=== PATIENT | male | born 1955 | race Hispanic/Latino ===

== ENCOUNTER 2017-07-26 19:37 | Inpatient (IN) | payer MEDICARE ==
[2017-07-26] MEDS ORDERED: Furosemide 40 MG/4 ML VIAL ONE ×2 (19:56→21:17)
--- NOTE | 2017-07-26 20:21 | RAD ---
CHEST ONE VIEW 07/26/17 HISTORY: Bilateral lower extremity edema. COMPARISON: Radiograph from 2017. FINDINGS: Heart size is markedly enlarged. Extensive alveolar and interstitial edema. No pneumothorax. IMPRESSION: Congestive heart failure. POS: EMANUELH
[2017-07-26 21:19] LABS: #Basophils 0.1 thou/uL (0.0-0.2); #Eosinphils 0.1 thou/uL (0.0-0.7); #Lymphocytes 1.3 thou/uL (1.20-3.40); #Monocytes 0.7 thou/uL (0.11-0.59); #Neutrophils 4.9 thou/uL (1.40-6.50); %Basophils 1.4 % (0.0-1.0); %Eosinophils 2.1 % (0.0-10.0); %Lymphocytes 17.8 % (21.0-51.0); %Monocytes 9.9 % (0.0-10.0); %Neutrophils 68.9 % (42.0-75.0); Hemoglobin 14.9 g/dL (14.0-18.0); Mean Corpuscular HGB CONC 32.2 g/dL (32.0-36.0); Mean Corpuscular Hemoglobin 28.1 pg (27.0-31.0); Mean Corpuscular Volume 87.4 fl (80.0-94.0); Mean Platelet Volume 8.3 fL (7.4-10.4); Platelet Count 206 thou/uL (130-400); RBC Distribution Width 14.8 % (11.5-14.5); White Blood Cell (WBC) Count 7.1 thou/uL (4.8-10.8)
[2017-07-26 21:40] LABS: ALT (SGPT) 7 U/L (8-55); AST (SGOT) 13 U/L (5-34); Albumin 3.5 g/dL (3.4-4.8); Alkaline Phosphatase 104 U/L (40-150); Anion Gap 12 mmol/L (10-20); BUN (Urea Nitrogen) 21 mg/dL (8.4-25.7); Bilirubin, Total 0.5 mg/dL (0.2-1.2); CK (CPK) 69 U/L (30-200); Calc. Creatinine Clearance 0 mL/min (70-130); Calcium 9.2 mg/dL (7.8-10.44); Carbon Dioxide 30 mmol/L (23-31); Chloride 97 mmol/L (98-107); Estimated GFR-MDRD 73; Globulin 4.2 g/dL (2.4-3.5); Glucose 296 mg/dL (80-115); Potassium 3.8 mmol/L (3.5-5.1); Protein, Total 7.7 g/dL (5.8-8.1); Sodium 135 mmol/L (136-145)
[2017-07-26 21:43] LABS: CKMB 1.6 ng/mL (0-6.6); Troponin I 0.015 ng/mL (< 0.028)
[2017-07-27 00:59] LABS: Troponin I 0.023 ng/mL (< 0.028)
[2017-07-27] MEDS ORDERED: Furosemide 40 MG/4 ML VIAL ONE (03:44)
[2017-07-27 03:47] LABS: Troponin I 0.031 ng/mL (< 0.028)
[2017-07-27] MEDS ORDERED: Ondansetron HCl/PF 4 MG/2 ML Vial IVP PRN (05:41)
[2017-07-27] MEDS ORDERED: Ondansetron ODT 4 MG TAB SL PRN (05:41)
[2017-07-27] MEDS ORDERED: Acetaminophen 325 MG TAB PO PRN ×2 (05:41→07:37)
[2017-07-27] MEDS ORDERED: Furosemide 40 MG/4 ML VIAL SLOW IVP SCH ×3 (06:00→20:00)
[2017-07-27] MEDS ORDERED: Acetaminophen 650 MG Suppository PR PRN (07:37)
[2017-07-27] MEDS ORDERED: Nitroglycerin 0.4 MG TAB (25 Tab Bottle) PO PRN (07:37)
[2017-07-27] MEDS ORDERED: Bisacodyl 5 MG TAB PO PRN (07:37)
[2017-07-27] MEDS: Enoxaparin Sodium 40 MG/0.4 ML SYRINGE SC SCH (09:13)
[2017-07-27] MEDS: Nicotine 14 MG PATCH TD SCH (11:40)
[2017-07-27] MEDS ORDERED: Dextrose 50% Abboject 50 ML SYRINGE SLOW IVP PRN (12:36)
[2017-07-27] MEDS ORDERED: Dextrose 5% in Water 1,000 ML IV PRN (12:36)
--- NOTE | 2017-07-27 12:49 | HP ---
PRIMARY CARE PHYSICIAN: None. CHIEF COMPLAINT: Chest pain. HISTORY OF PRESENT ILLNESS: Mr. Fu is a pleasant 61-year-old gentleman who was seen at [facility] on 07/27/2017. He was previously hospitalized here in 01/2017 for acute on chronic systolic congestive heart failure exacerbation. He reports that he has been doing well until 2 or 3 weeks ago. Around that time, he developed bilate ral lower extremity edema. He reports it as worsening of his edema. He also reports orthopnea and p aroxysmal nocturnal dyspnea as well as shortness of breath with exertion. Yesterday, he developed retrosternal chest discomfort. He describes it as sharp pain, 9/10, lasted a few minutes. No known aggravating or relieving factors. It was nonradiating. It was accompanied b y shortness of breath, but not by nausea, lightheadedness or diaphoresis. He came to the emergency room because of chest pain. REVIEW OF SYSTEMS: The following complete review of systems was negative, unless otherwise mentioned in the HPI or below: Constitutional: Weight loss or gain, ability to conduct usual activities. Skin: Rash, itching. Eyes: Double vision, pain. ENT/Mouth: Nose bleeding, neck stiffness, pain, tenderness. Cardiovascular: Palpitations, dyspnea on exertion, orthopnea. Respiratory: Shortness of breath, wheezing, cough, hemoptysis, fever or night sweats. Gastrointestinal: Poor appetite, abdominal pain, heartburn, nausea, vomiting, constipation, or diarr hea. Genitourinary: Urgency, frequency, dysuria, nocturia. Musculoskeletal: Pain, swelling. Neurologic/Psychiatric: Anxiety, depression. Allergy/Immunologic: Skin rash, bleeding tendency. PAST MEDICAL HISTORY: Significant for coronary artery disease, diabetes mellitus type 2, dyslipidemi a, obesity, chronic systolic congestive heart failure, last known ejection fraction 25%-30% in 7. PAST SURGICAL HISTORY: Coronary artery bypass graft in [place], patient reports having a near experience following coronary artery bypass graft. FAMILY HISTORY: Myocardial infarction in both parents. SOCIAL HISTORY: Patient reports smoking 2-3 cigarettes a day. He denies recreational drug use. He reports occasional alcohol use. ALLERGIES: No known drug allergies. CURRENT MEDICATIONS: The patient's pharmacy reports that patient has not filled his prescriptions in several months. Otherwise, he appears to have been on aspirin, Coreg, Lasix, glipizide, lisinopril, metformin, Zaroxolyn, metoprolol, and pantoprazole. PHYSICAL EXAMINATION: GENERAL: On examination, Mr. Fu is awake and alert, not in acute distress. VITAL SIGNS: Blood pressure is 134/71, pulse is 79, his breathing at rate of 20 and saturating 92% o n room air. He is afebrile. He is morbidly obese with BMI of 49.5. EYES: No scleral icterus. No conjunctival pallor. ENT: Moist mucosal membranes, no oropharyngeal erythema or exudates. NECK: Supple, nontender, unable to assess jugular veins. Trachea is midline. RESPIRATORY: Accessory muscles of breathing are not active. Chest wall movements are symmetric bila terally. LUNGS: Examination reveals bibasilar crackles. CARDIOVASCULAR: S1 and S2 are heard, regular. Peripheral pulses palpable. No carotid bruit, no per icardial rub. ABDOMEN: Distended, nontender, bowel sounds are heard, no hepatomegaly, no splenomegaly. NEUROLOGIC: Cranial nerves II-XII intact. Deep tendon reflexes 2+. MUSCULOSKELETAL: Power is 5/5 in all 4 extremities. He has bilateral lower extremity edema. SKIN: No rashes or subcutaneous nodules. LYMPHATIC: No cervical lymphadenopathy. PSYCHIATRIC: Normal mood and normal affect. The patient is oriented to person, place, and time. IMAGING DATA AND LABORATORY DATA: Mr. Fu's labs and investigations were reviewed. I reviewed his electrocardiogram, which shows normal sinus rhythm, no ST changes to suggest an acute coronary s yndrome. I also reviewed his chest x-ray, which shows pulmonary edema. He has an unremarkable CBC, hyponatremia with sodium of 135, normal potassium, normal creatinine, elevated BNP of 695, troponin I indeterminate at 0.031 and normal calcium. ASSESSMENT AND PLAN: Mr. Fu is a pleasant 61-year-old gentleman who was seen at [facility] on 07/27/2017. His problem list includes: 1. Chest pain: Mr. Fu has a history of coronary artery disease. We will order a stress test to rule out acute coronary syndrome. Continue him on aspirin for now. 2. Acute on chronic systolic congestive heart failure. Mr. Fu is also presenting with conges tive heart failure exacerbation. We will treat him with intravenous diuretics. We will also request Cardiology Service input for opinion and help with management. 3. Diabetes mellitus. Start Accu-Cheks, insulin sliding scale. 4. Hypertension: Monitor vital signs and titrate antihypertensives as needed. 5. Tobacco abuse: Tobacco cessation counseling, nicotine replacement therapy. LEVEL OF RISK: High. LEVEL OF COMPLEXITY: High.
[2017-07-27] MEDS: Furosemide 40 MG/4 ML VIAL SLOW IVP SCH (14:37)
--- NOTE | 2017-07-27 14:37 | CON ---
DATE OF CONSULTATION: 07/27/2017 REASON FOR CONSULTATION: Congestive heart failure, systolic, acute on chronic. PRIMARY BAR SUPERVISOR: Dr. Devang Madera. HISTORY OF PRESENT ILLNESS: Mr. Fu is a pleasant 61-year-old gentleman with history of cole ry artery disease and previous bypass surgery. The patient has a previous history of congestive hear t failure, systolic, chronic. He said he ran out of his medicines about a month ago, started getting increasing swelling of his lower extremities and then ultimately severe trouble breathing, came to [facility] and was found to be in congestive heart failure. The patient received diuretics has resp onded and is feeling better, but still has tremendous amount of edema. There is developed a tremendous amount of edema. No chest pain. MEDICATIONS: He stopped taking all his medicines about a month ago. ALLERGIES: None known. SOCIAL HISTORY: Two-three cigarettes per day, occasional alcohol. PAST SURGICAL HISTORY: Coronary artery bypass grafting in [place]. PAST MEDICAL HISTORY: 1. Coronary artery disease. 2. Congestive heart failure, systolic ejection fraction 25% to 30%. 3. Diabetes. REVIEW OF SYSTEMS: CONSTITUTIONAL: No significant weight gain or loss. VISION: No changes. HEARING: No changes. PULMONARY: No cough or wheezing. GASTROINTESTINAL: No nausea, vomiting, diarrhea. SKIN: No rashes. NEUROLOGIC: No unilateral weakness or numbness. PSYCHIATRIC: No unusual depression or anxiety. HEMATOLOGIC: No unusual bruising. GENITOURINARY: No burning with urination. PHYSICAL EXAMINATION: GENERAL: A pleasant very overweight 61-year-old man, 5 foot 6 inches tall, 306 pounds. BMI 49.5. HEENT: Eyes: Sclerae nonicteric. Mouth: Mucous membranes moist. NECK: Supple, no lymphadenopathy. LUNGS: Clear, no wheezing, rales, or rhonchi. CARDIAC: Normal S1, normal S2. There is no murmur, rub, or gallop. ABDOMEN: Obese, nontender, no hepatosplenomegaly. EXTREMITIES: Warm, dry, no clubbing, cyanosis, or severe edema. LABORATORY AND X-RAY FINDINGS: Potassium 3.8, glucose 296. Troponin 0.031. BNP 695. The EKG sinus rhythm with a rate of 100 yesterday, now the rate is slower. Nonspecific intraventricu lar conduction delay, but the QRS is only 0.10, no acute changes. Chest x-ray shows cardiomegaly with pulmonary vascular congestion. ASSESSMENT: 1. Congestive heart failure, systolic, acute on chronic. 2. Previous bypass surgery. 3. Morbid obesity. 4. Diabetes. PLAN: 1. Continue diuresis. 2. Continue lisinopril. 3. Continue carvedilol, doses may be increased later. 4. Hopefully, the patient will be more compliant at the time of discharge on this occasion, probably to be here 2 to 3 days, Dr. Madera to resume care in the morning.
[2017-07-27] MEDS: metFORMIN 850 MG TAB PO SCH (17:25)
[2017-07-27] MEDS ORDERED: Potassium Chloride 20 MEQ TAB PO SCH (20:00)
[2017-07-27] MEDS: Carvedilol 3.125 MG TAB PO SCH (21:43)
[2017-07-28 06:00] LABS: #Eosinphils 0.2 thou/uL (0.0-0.7); #Lymphocytes 1.3 thou/uL (1.20-3.40); #Monocytes 0.6 thou/uL (0.11-0.59); #Neutrophils 3.6 thou/uL (1.40-6.50); %Basophils 0.9 % (0.0-1.0); %Eosinophils 2.9 % (0.0-10.0); %Lymphocytes 22.9 % (21.0-51.0); %Monocytes 10.9 % (0.0-10.0); %Neutrophils 62.4 % (42.0-75.0); Hemoglobin 13.8 g/dL (14.0-18.0); Mean Corpuscular HGB CONC 32.1 g/dL (32.0-36.0); Mean Corpuscular Hemoglobin 27.9 pg (27.0-31.0); Mean Corpuscular Volume 86.7 fl (80.0-94.0); Mean Platelet Volume 8.2 fL (7.4-10.4); Platelet Count 192 thou/uL (130-400); RBC Distribution Width 14.7 % (11.5-14.5); Red Blood Cell (RBC) Count 4.97 mill/uL (4.70-6.10); White Blood Cell (WBC) Count 5.7 thou/uL (4.8-10.8)
[2017-07-28] MEDS: Furosemide 40 MG/4 ML VIAL SLOW IVP SCH ×2 (06:06→13:52)
[2017-07-28 06:13] LABS: Anion Gap 11 mmol/L (10-20); BUN (Urea Nitrogen) 16 mg/dL (8.4-25.7); Calc. Creatinine Clearance 169 mL/min (70-130); Carbon Dioxide 29 mmol/L (23-31); Chloride 98 mmol/L (98-107); Estimated GFR-MDRD 88; Glucose 225 mg/dL (80-115); Potassium 4.2 mmol/L (3.5-5.1); Sodium 134 mmol/L (136-145)
[2017-07-28 08:04] VITALS: BMI 48.1
[2017-07-28] MEDS: Enoxaparin Sodium 40 MG/0.4 ML SYRINGE SC SCH (09:59)
[2017-07-28] MEDS: metFORMIN 850 MG TAB PO SCH ×2 (09:59→16:39)
[2017-07-28] MEDS: Carvedilol 3.125 MG TAB PO SCH ×2 (09:59→20:21)
[2017-07-28] MEDS: Aspirin 81 mg Enteric Coated Tablet PO SCH (09:59)
[2017-07-28] MEDS: glipiZIDE 5 MG TAB PO SCH (09:59)
[2017-07-28] MEDS: Metolazone 2.5 MG TAB PO SCH (09:59)
[2017-07-28] MEDS: Lisinopril 2.5 MG TAB PO SCH (10:00)
[2017-07-28] MEDS: Nicotine 14 MG PATCH TD SCH (10:00)
--- NOTE | 2017-07-28 13:16 | PDOC.PN ---
- Subjective Encounter Start Date: 07/28/17 Encounter Start Time: 12:00 Pt seen for followup re: CHF exacerbation. Denies chest pain. Shortness of breath is better. No nausea or vomiting. - Objective Vital Signs & Weight: Vital Signs (12 hours) Temp Pulse Resp BP BP Pulse Ox 07/28/17 12:00 97.6 F 80 20 109/55 L 93 L 07/28/17 10:00 76 116/61 07/28/17 08:00 98.6 F 76 20 116/61 96 07/28/17 07:12 97 07/28/17 03:26 97.7 F 81 24 H 116/70 96 Weight Admit Weight 306 lb 9.6 oz Weight 298 lb 4.8 oz I&O: 07/27/17 07/28/17 07/29/17 06:59 06:59 06:59 Intake Total 120 775 Output Total 700 2375 Balance -580 -1600 Result Diagrams: 07/28/17 05:45 07/28/17 05:45 Additional Labs: Accuchecks 07/28/17 07/28/17 07/27/17 11:02 05:34 20:50 POC Glucose 250 H 201 H 278 H 07/27/17 17:10 POC Glucose 219 H EKG Reviewed by me: Yes (Tele: NSR) Phys Exam - Physical Examination Morbidly obese HEENT: PERRLA, moist MMs, sclera anicteric, oral pharynx no lesions Neck: no nodes, no JVD, supple, full ROM Respiratory: no wheezing, no rhonchi Kaleb crackles Cardiovascular: RRR, no rub Gastrointestinal: soft, non-tender, no distention, positive bowel sounds Musculoskeletal: pulses present, edema present Neurological: moves all 4 limbs Psychiatric: normal affect, A&O x 3 Dx/Plan (1) Acute on chronic combined systolic and diastolic congestive heart failure Code(s): I50.43 - ACUTE ON CHRONIC COMBINED SYSTOLIC AND DIASTOLIC HRT FAIL Status: Acute Comment: Continue IV diuretics (2) CAD (coronary artery disease) Code(s): I25.10 - ATHSCL HEART DISEASE OF [place] CORONARY ARTERY W/O ANG PCTRS Status: Chronic Qualifiers: Coronary Disease-Associated Artery/Lesion type: bypass graft [place] vs. 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 insulin use: without fish frog or oyster farmer use Qualified Code(s): E11.65 - Type 2 diabetes mellitus with hyperglycemia Comment: Continue accuchecks, insulin sliding scale (4) Dyslipidemia Code(s): E78.5 - HYPERLIPIDEMIA, UNSPECIFIED Status: Chronic (5) HTN (hypertension) Code(s): I10 - ESSENTIAL (PRIMARY) HYPERTENSION Status: Chronic Qualifiers: Hypertension type: essential hypertension Qualified Code(s): I10 - Essential (primary) hypertension Comment: Monitor vital signs, titrate antihypertensives as needed (6) Non compliance w medication regimen Code(s): Z91.14 - PATIENT'S OTHER NONCOMPLIANCE WITH MEDICATION REGIMEN Status : Chronic - Plan * . Review of Systems - Review of Systems Constitutional: negative: fever, chills, sweats, weakness, malaise Respiratory: SOB with Excertion. negative: Cough, Dry, Shortness of Breath, Hemoptysis, Pleuritic Pain, Sputum, Wheezing Cardiovascular: orthopnea. negative: chest pain, palpitations, paroxysmal nocturnal dyspnea, edema, light headedness Gastrointestinal: negative: Nausea, Vomiting, Abdominal Pain, Diarrhea, Constipation, Melena, Hematochezia Genitourinary: negative: Dysuria, Frequency, Incontinence, Hematuria, Retention - Medications/Allergies Allergies/Adverse Reactions: Allergies Allergy/AdvReac Type Severity Reaction Status Date / Time No Known Drug Allergies Allergy Unknown Verified 07/27/17 05:04 Medications: Current Medications Acetaminophen (Tylenol) 650 mg PO Q4H PRN PRN Reason: Headache/Fever or Pain Acetaminophen (Tylenol) 650 mg [place] Q4H PRN PRN Reason: Headache/Fever or Pain Aspirin (Ecotrin) 81 mg PO DAILY [facility] Last Admin: 07/28/17 09:59 Dose: 81 mg Bisacodyl (Dulcolax) 10 mg PO DAILYPRN PRN PRN Reason: Constipation Carvedilol (Coreg) 3.125 mg PO BID [facility] Last Admin: 07/28/17 09:59 Dose: 3.125 mg Dextrose/Water (Dextrose 50%) 25 gm SLOW IVP PRN PRN PRN Reason: Hypoglycemia Enoxaparin Sodium (Lovenox) 40 mg SC 0900 [facility] Last Admin: 07/28/17 09:59 Dose: 40 mg Furosemide (Lasix) 40 mg SLOW IVP 0600,1400 [facility] Last Admin: 07/28/17 06:06 Dose: 40 mg Glipizide (Glucotrol) 5 mg PO DAILY-[facility] Last Admin: 07/28/17 09:59 Dose: 5 mg Glucagon (Glucagon) 1 mg IM PRN PRN PRN Reason: Hypoglycemia Dextrose/Water (D5w) 1,000 mls @ 0 mls/hr IV .Q0M PRN; As Directed PRN Reason: Hypoglycemia Insulin Human Lispro (Humalog) 0 units SC .MILD SLIDING SCALE PRN PRN Reason: Mild Correctional Scale Lisinopril (Zestril) 2.5 mg PO DAILY [facility] Last Admin: 07/28/17 10:00 Dose: 2.5 mg Metformin HCl (Glucophage) 850 mg PO BID-[facility] Last Admin: 07/28/17 09:59 Dose: 850 mg Metolazone (Zaroxolyn) 2.5 mg PO 0830 [facility] Last Admin: 07/28/17 09:59 Dose: 2.5 mg Nicotine (Nicoderm Patch) 14 mg TD Q24HR [facility] Last Admin: 07/28/17 10:00 Dose: Not Given Nitroglycerin (Nitrostat) 0.4 mg PO Q5MIN PRN PRN Reason: Chest Pain Pantoprazole Sodium (Protonix) 40 mg PO DAILY [facility] Last Admin: 07/28/17 10:00 Dose: 40 mg Sodium Chloride (Flush - Normal Saline) 10 ml IVF Q12HR [facility] Last Admin: 07/28/17 10:01 Dose: 10 ml Sodium Chloride (Flush - Normal Saline) 10 ml IVF PRN PRN PRN Reason: Saline Flush
[2017-07-29 05:23] LABS: #Basophils 0.1 thou/uL (0.0-0.2); #Eosinphils 0.2 thou/uL (0.0-0.7); #Lymphocytes 1.4 thou/uL (1.20-3.40); #Monocytes 0.8 thou/uL (0.11-0.59); #Neutrophils 3.6 thou/uL (1.40-6.50); %Basophils 1.6 % (0.0-1.0); %Eosinophils 3.2 % (0.0-10.0); %Lymphocytes 22.7 % (21.0-51.0); %Monocytes 12.6 % (0.0-10.0); %Neutrophils 59.9 % (42.0-75.0); Hemoglobin 14.1 g/dL (14.0-18.0); Mean Corpuscular Hemoglobin 27.8 pg (27.0-31.0); Mean Corpuscular Volume 86.8 fl (80.0-94.0); Mean Platelet Volume 8.4 fL (7.4-10.4); Platelet Count 176 thou/uL (130-400); RBC Distribution Width 14.7 % (11.5-14.5); Red Blood Cell (RBC) Count 5.06 mill/uL (4.70-6.10)
[2017-07-29 05:39] LABS: Anion Gap 11 mmol/L (10-20); BUN (Urea Nitrogen) 20 mg/dL (8.4-25.7); Calc. Creatinine Clearance 135 mL/min (70-130); Calcium 9.2 mg/dL (7.8-10.44); Carbon Dioxide 28 mmol/L (23-31); Chloride 96 mmol/L (98-107); Cholesterol 111 mg/dl (< 200 Desired); Estimated GFR-MDRD 68; Glucose 265 mg/dL (80-115); HDL Cholesterol 22 mg/dL (>60 Neg Risk); LDL Cholesterol, Calculated 71 mg/dL; Potassium 3.9 mmol/L (3.5-5.1); Sodium 131 mmol/L (136-145); Triglycerides 88 mg/dL (Less than 150)
[2017-07-29] MEDS: Furosemide 40 MG/4 ML VIAL SLOW IVP SCH ×2 (05:40→15:45)
[2017-07-29] MEDS: HumaLOG 300 UNITS/3 ML VIAL SC PRN ×4 (05:45→20:16)
[2017-07-29] MEDS: Carvedilol 3.125 MG TAB PO SCH ×2 (12:08→20:18)
[2017-07-29] MEDS: metFORMIN 850 MG TAB PO SCH ×2 (12:08→15:45)
[2017-07-29] MEDS: glipiZIDE 5 MG TAB PO SCH (12:08)
[2017-07-29] MEDS: Lisinopril 2.5 MG TAB PO SCH (12:12)
[2017-07-29] MEDS: Enoxaparin Sodium 40 MG/0.4 ML SYRINGE SC SCH (12:13)
[2017-07-29] MEDS: Metolazone 2.5 MG TAB PO SCH (12:13)
[2017-07-29] MEDS: Aspirin 81 mg Enteric Coated Tablet PO SCH (12:13)
[2017-07-29] MEDS: Nicotine 14 MG PATCH TD SCH (12:14)
--- NOTE | 2017-07-29 13:26 | NM ---
MYOCARDIAL PERFUSION STUDY: DATE: 07/29/17. HISTORY: Chest pain. RADIOPHARMACEUTICALS: 30.7 mCi Technetium 99m sestamibi, IV at stress, and 31.7 mCi Technetium 99m sestamibi, IV at rest. MEDICATIONS: 25.2 mL (75.6 mg) adenosine, IV. FINDINGS: There is absence of activity seen at the ventricular septum and involving the anterior left ventricul ar wall on both the resting and stress acquisitions. There is a suggestion of very small area of min imal reversibility involving the distal inferior left ventricular wall. No additional reversible def ects are seen. The gaited images show severe global hypokinesis with akinesis involving the majority of the septum with akinesis involving the distal septum and ventricular apex. There is also decreas ed thickening involving he anterior wall and ventricular apex. The calculated left ventricular ejection fraction is significantly diminished at 26%. IMPRESSION: 1. Abnormal myocardial perfusion study with scarring present within the anterior left ventricular wa ll extending from the mid left ventricle to the apex as well as involving the apex consistent with sc arring. There is a suggestion of minimal reversible defect seen involving the most distal aspect of the inferior left ventricular wall which could be related to minimal periinfarct ischemia. However, no significant reversible defect is appreciated. 2. Abnormal left ventricular function with severe global hypokinesis and akinesis involving the sept um with dyskinesis involving the distal septum and ventricular apex. In addition, there is diminishe d thickening of the anterior left ventricular wall and at the apex. 3. Diminished left ventricular ejection fraction of 26%. POS: [id number]
--- NOTE | 2017-07-29 16:22 | PDOC.PN ---
- Subjective Encounter Start Date: 07/29/17 Encounter Start Time: 16:22 Pt seen for followup re: CHF exacerbation. Feels better. No chest pain. No fevers or chills. - Objective MAR Reviewed: Yes Vital Signs & Weight: Vital Signs (12 hours) Temp Pulse Resp BP Pulse Ox 07/29/17 15:33 97.9 F 72 16 120/56 L 95 07/29/17 12:12 79 07/29/17 11:55 98.4 F 79 20 123/58 L 100 07/29/17 08:25 97.8 F 66 15 98 07/29/17 08:00 97.8 F 66 16 110/59 L 97 07/29/17 05:02 97.7 F 82 18 134/68 96 Weight Admit Weight 306 lb 9.6 oz Weight 292 lb 6.4 oz I&O: 07/28/17 07/29/17 07/30/17 06:59 06:59 06:59 Intake Total 775 960 840 Output Total 9864 1275 2322 Balance -1600 -925 -660 Result Diagrams: 07/29/17 05:06 07/29/17 05:06 Additional Labs: Accuchecks 07/29/17 07/29/17 07/28/17 11:17 05:39 20:21 POC Glucose 243 H 225 H 187 H 07/28/17 17:07 POC Glucose 182 H EKG Reviewed by me: Yes (Tele: NSR) Phys Exam - Physical Examination Constitutional: NAD HEENT: moist MMs Neck: supple Respiratory: clear to auscultation bilateral Cardiovascular: RRR Gastrointestinal: soft Neurological: moves all 4 limbs Psychiatric: normal affect Skin: no rash Dx/Plan (1) Acute on chronic combined systolic and diastolic congestive heart failure Code(s): I50.43 - ACUTE ON CHRONIC COMBINED SYSTOLIC AND DIASTOLIC HRT FAIL Status: Acute Comment: Continue IV diuretics (2) CAD (coronary artery disease) Code(s): I25.10 - ATHSCL HEART DISEASE OF [place] CORONARY ARTERY W/O ANG PCTRS Status: Chronic Qualifiers: Coronary Disease-Associated Artery/Lesion type: bypass graft [place] vs. 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 insulin use: without [place] use Qualified Code(s): E11.65 - Type 2 diabetes mellitus with hyperglycemia Comment: On accuchecks, insulin sliding scale (4) Dyslipidemia Code(s): E78.5 - HYPERLIPIDEMIA, UNSPECIFIED Status: Chronic (5) HTN (hypertension) Code(s): I10 - ESSENTIAL (PRIMARY) HYPERTENSION Status: Chronic Qualifiers: Hypertension type: essential hypertension Qualified Code(s): I10 - Essential (primary) hypertension Comment: titrate antihypertensives as needed (6) Non compliance w medication regimen Code(s): Z91.14 - PATIENT'S OTHER NONCOMPLIANCE WITH MEDICATION REGIMEN Status : Chronic - Plan * . Review of Systems - Review of Systems Respiratory: SOB with Excertion. negative: Cough, Dry, Shortness of Breath, Hemoptysis, Pleuritic Pain, Sputum, Wheezing Cardiovascular: orthopnea. negative: chest pain, palpitations, paroxysmal nocturnal dyspnea, edema, light headedness - Medications/Allergies Allergies/Adverse Reactions: Allergies Allergy/AdvReac Type Severity Reaction Status Date / Time No Known Drug Allergies Allergy Unknown Verified 07/27/17 05:04 Medications: Current Medications Acetaminophen (Tylenol) 650 mg PO Q4H PRN PRN Reason: Headache/Fever or Pain Acetaminophen (Tylenol) 650 mg [place] Q4H PRN PRN Reason: Headache/Fever or Pain Aspirin (Ecotrin) 81 mg PO DAILY [facility] Last Admin: 07/29/17 12:13 Dose: 81 mg Bisacodyl (Dulcolax) 10 mg PO DAILYPRN PRN PRN Reason: Constipation Carvedilol (Coreg) 3.125 mg PO BID [facility] Last Admin: 07/29/17 12:08 Dose: Not Given Dextrose/Water (Dextrose 50%) 25 gm SLOW IVP PRN PRN PRN Reason: Hypoglycemia Enoxaparin Sodium (Lovenox) 40 mg SC 0900 [facility] Last Admin: 07/29/17 12:13 Dose: 40 mg Furosemide (Lasix) 40 mg SLOW IVP 0600,1400 [facility] Last Admin: 07/29/17 15:45 Dose: 40 mg Glipizide (Glucotrol) 5 mg PO DAILY-[facility] Last Admin: 07/29/17 12:08 Dose: Not Given Glucagon (Glucagon) 1 mg IM PRN PRN PRN Reason: Hypoglycemia Dextrose/Water (D5w) 1,000 mls @ 0 mls/hr IV .Q0M PRN; As Directed PRN Reason: Hypoglycemia Insulin Human Lispro (Humalog) 0 units SC .MILD SLIDING SCALE PRN PRN Reason: Mild Correctional Scale Last Admin: 07/29/17 12:14 Dose: 3 unit Lisinopril (Zestril) 2.5 mg PO DAILY [facility] Last Admin: 07/29/17 12:12 Dose: 2.5 mg Metformin HCl (Glucophage) 850 mg PO BID-[facility] Last Admin: 07/29/17 15:45 Dose: 850 mg Metolazone (Zaroxolyn) 2.5 mg PO 0830 [facility] Last Admin: 07/29/17 12:13 Dose: 2.5 mg Nicotine (Nicoderm Patch) 14 mg TD Q24HR [facility] Last Admin: 07/29/17 12:14 Dose: Not Given Nitroglycerin (Nitrostat) 0.4 mg PO Q5MIN PRN PRN Reason: Chest Pain Pantoprazole Sodium (Protonix) 40 mg PO DAILY [facility] Last Admin: 07/29/17 12:13 Dose: 40 mg Sodium Chloride (Flush - Normal Saline) 10 ml IVF Q12HR [facility] Last Admin: 07/29/17 12:14 Dose: 10 ml Sodium Chloride (Flush - Normal Saline) 10 ml IVF PRN PRN PRN Reason: Saline Flush Last Admin: 07/29/17 05:40 Dose: 10 ml
--- NOTE | 2017-07-30 04:42 | PDOC.EVN ---
Event Note - Event Note Event Note: RN called - Pt had 12 beats of NSVT. Will check labs
[2017-07-30] MEDS ORDERED: Magnesium 2 GM/NS 0.9% 100 ML 2 GM in Premix Bag 1 BAG IVPB SCH (05:00)
[2017-07-30 05:24] LABS: #Eosinphils 0.2 thou/uL (0.0-0.7); #Lymphocytes 1.2 thou/uL (1.20-3.40); #Monocytes 0.7 thou/uL (0.11-0.59); #Neutrophils 3.5 thou/uL (1.40-6.50); %Basophils 0.7 % (0.0-1.0); %Eosinophils 3.1 % (0.0-10.0); %Lymphocytes 21.4 % (21.0-51.0); %Monocytes 12.3 % (0.0-10.0); %Neutrophils 62.6 % (42.0-75.0); Hemoglobin 14.3 g/dL (14.0-18.0); Mean Corpuscular HGB CONC 30.6 g/dL (32.0-36.0); Mean Corpuscular Hemoglobin 26.4 pg (27.0-31.0); Mean Corpuscular Volume 86.2 fl (80.0-94.0); Mean Platelet Volume 8.4 fL (7.4-10.4); Platelet Count 184 thou/uL (130-400); RBC Distribution Width 14.7 % (11.5-14.5); White Blood Cell (WBC) Count 5.6 thou/uL (4.8-10.8)
[2017-07-30 05:34] LABS: Anion Gap 11 mmol/L (10-20); BUN (Urea Nitrogen) 19 mg/dL (8.4-25.7); Calc. Creatinine Clearance 171 mL/min (70-130); Calcium 9.4 mg/dL (7.8-10.44); Carbon Dioxide 29 mmol/L (23-31); Chloride 94 mmol/L (98-107); Estimated GFR-MDRD Greater than 90; Glucose 227 mg/dL (80-115); Sodium 130 mmol/L (136-145)
[2017-07-30 05:41] LABS: Anion Gap 11 mmol/L (10-20); BUN (Urea Nitrogen) 19 mg/dL (8.4-25.7); BUN/Creatinine Ratio 21.11; Calc. Creatinine Clearance 162 mL/min (70-130); Calcium 9.4 mg/dL (7.8-10.44); Carbon Dioxide 30 mmol/L (23-31); Chloride 94 mmol/L (98-107); Estimated GFR-MDRD 86; Glucose 228 mg/dL (80-115); Magnesium 1.4 mg/dL (1.6-2.6); Phosphorus 3.6 mg/dL (2.3-4.7); Sodium 131 mmol/L (136-145)
[2017-07-30] MEDS: Furosemide 40 MG/4 ML VIAL SLOW IVP SCH ×2 (05:43→15:14)
[2017-07-30] MEDS: HumaLOG 300 UNITS/3 ML VIAL SC PRN ×3 (05:43→20:44)
[2017-07-30] MEDS: Aspirin 81 mg Enteric Coated Tablet PO SCH (08:31)
[2017-07-30] MEDS: glipiZIDE 5 MG TAB PO SCH (08:31)
[2017-07-30] MEDS: metFORMIN 850 MG TAB PO SCH ×2 (08:31→17:06)
[2017-07-30] MEDS: Metolazone 2.5 MG TAB PO SCH (08:31)
[2017-07-30] MEDS: Enoxaparin Sodium 40 MG/0.4 ML SYRINGE SC SCH (08:32)
[2017-07-30] MEDS: Lisinopril 2.5 MG TAB PO SCH (08:32)
[2017-07-30] MEDS: Carvedilol 3.125 MG TAB PO SCH ×2 (08:32→20:43)
[2017-07-30] MEDS: Nicotine 14 MG PATCH TD SCH (08:37)
--- NOTE | 2017-07-30 12:39 | PDOC.PN ---
- Subjective Encounter Start Date: 07/30/17 Encounter Start Time: 07:20 Pt seen for followup re: NSVT. Denies chest pain, lightheadedness. Dyspnea is better. - Objective MAR Reviewed: Yes Vital Signs & Weight: Vital Signs (12 hours) Temp Pulse Resp BP BP Pulse Ox 07/30/17 11:58 97.6 F 71 20 119/61 94 L 07/30/17 11:03 94 L 07/30/17 08:32 66 132/60 07/30/17 07:48 97.9 F 66 16 94 L 07/30/17 07:27 97.9 F 66 16 132/60 92 L 07/30/17 04:33 98.0 F 75 20 114/58 L 93 L Weight Admit Weight 306 lb 9.6 oz Weight 284 lb 11.2 oz I&O: 07/29/17 07/30/17 07/31/17 06:59 06:59 07:59 Intake Total 960 1494 300 Output Total 4773 1899 3757 [facility]925 -[phone] -1150 Result Diagrams: 07/30/17 05:06 07/30/17 05:06 Additional Labs: Accuchecks 07/30/17 07/30/17 07/29/17 11:07 05:43 20:08 POC Glucose 209 H 199 H 200 H 07/29/17 17:05 POC Glucose 203 H EKG Reviewed by me: Yes (Tele: NSVT, NSR) Phys Exam - Physical Examination Morbid obesity HEENT: oral pharynx no lesions Neck: supple Respiratory: clear to auscultation bilateral Cardiovascular: RRR Gastrointestinal: soft, non-tender Musculoskeletal: edema present Neurological: moves all 4 limbs Psychiatric: normal affect Dx/Plan (1) NSVT (nonsustained ventricular tachycardia) Code(s): I47.2 - VENTRICULAR TACHYCARDIA Status: Acute Comment: Discussed with patient. Magnesium replaced, recheck in AM. Pt does not want ICD placement. Cardiology following. (2) Acute on chronic combined systolic and diastolic congestive heart failure Code(s): I50.43 - ACUTE ON CHRONIC COMBINED SYSTOLIC AND DIASTOLIC HRT FAIL Status: Acute Comment: Pt responding well to IV diuretics, likely transition to oral diuretics tomorrow (3) CAD (coronary artery disease) Code(s): I25.10 - ATHSCL HEART DISEASE OF [place] CORONARY ARTERY W/O ANG PCTRS Status: Chronic Qualifiers: Coronary Disease-Associated Artery/Lesion type: bypass graft [place] vs. transplanted heart: false pass heart Associated angina: without angina Qualified Code(s): I25.810 - Atherosclerosis of coronary artery bypass graft(s) without angina pectoris Comment: stress test: nil acute (4) DM (diabetes mellitus), type 2, uncontrolled Code(s): E11.65 - TYPE 2 DIABETES MELLITUS WITH HYPERGLYCEMIA Status: Chronic Qualifiers: Diabetes mellitus complication status: with hyperglycemia Diabetes mellitus drafting clerk insulin use: without drafting clerk use Qualified Code(s): E11.65 - Type 2 diabetes mellitus with hyperglycemia Comment: Continue accuchecks, insulin sliding scale (5) Dyslipidemia Code(s): E78.5 - HYPERLIPIDEMIA, UNSPECIFIED Status: Chronic (6) HTN (hypertension) Code(s): I10 - ESSENTIAL (PRIMARY) HYPERTENSION Status: Chronic Qualifiers: Hypertension type: essential hypertension Qualified Code(s): I10 - Essential (primary) hypertension Comment: Monitor vital signs, titrate antihypertensives as needed (7) Non compliance w medication regimen Code(s): Z91.14 - PATIENT'S OTHER NONCOMPLIANCE WITH MEDICATION REGIMEN Status : Chronic - Plan out of bed/ambulate * . Review of Systems - Review of Systems Respiratory: SOB with Excertion. negative: Cough, Dry, Shortness of Breath, Hemoptysis, Pleuritic Pain, Sputum, Wheezing Cardiovascular: negative: chest pain, palpitations, orthopnea, paroxysmal nocturnal dyspnea, edema, light headedness - Medications/Allergies Allergies/Adverse Reactions: Allergies Allergy/AdvReac Type Severity Reaction Status Date / Time No Known Drug Allergies Allergy Unknown Verified 07/27/17 05:04 Medications: Current Medications Acetaminophen (Tylenol) 650 mg PO Q4H PRN PRN Reason: Headache/Fever or Pain Acetaminophen (Tylenol) 650 mg [place] Q4H PRN PRN Reason: Headache/Fever or Pain Aspirin (Ecotrin) 81 mg PO DAILY [facility] Last Admin: 07/30/17 08:31 Dose: 81 mg Bisacodyl (Dulcolax) 10 mg PO DAILYPRN PRN PRN Reason: Constipation Carvedilol (Coreg) 3.125 mg PO BID [facility] Last Admin: 07/30/17 08:32 Dose: 3.125 mg Dextrose/Water (Dextrose 50%) 25 gm SLOW IVP PRN PRN PRN Reason: Hypoglycemia Enoxaparin Sodium (Lovenox) 40 mg SC 0900 [facility] Last Admin: 07/30/17 08:32 Dose: 40 mg Furosemide (Lasix) 40 mg SLOW IVP 0600,1400 [facility] Last Admin: 07/30/17 05:43 Dose: 40 mg Glipizide (Glucotrol) 5 mg PO DAILY-[facility] Last Admin: 07/30/17 08:31 Dose: 5 mg Glucagon (Glucagon) 1 mg IM PRN PRN PRN Reason: Hypoglycemia Dextrose/Water (D5w) 1,000 mls @ 0 mls/hr IV .Q0M PRN; As Directed PRN Reason: Hypoglycemia Insulin Human Lispro (Humalog) 0 units SC .MILD SLIDING SCALE PRN PRN Reason: Mild Correctional Scale Last Admin: 07/30/17 11:28 Dose: 3 unit Lisinopril (Zestril) 2.5 mg PO DAILY [facility] Last Admin: 07/30/17 08:32 Dose: 2.5 mg Metformin HCl (Glucophage) 850 mg PO BID-[facility] Last Admin: 07/30/17 08:31 Dose: 850 mg Metolazone (Zaroxolyn) 2.5 mg PO 0830 [facility] Last Admin: 07/30/17 08:31 Dose: 2.5 mg Nicotine (Nicoderm Patch) 14 mg TD Q24HR [facility] Last Admin: 07/30/17 08:37 Dose: 14 mg Nitroglycerin (Nitrostat) 0.4 mg PO Q5MIN PRN PRN Reason: Chest Pain Pantoprazole Sodium (Protonix) 40 mg PO DAILY [facility] Last Admin: 07/30/17 08:32 Dose: 40 mg Sodium Chloride (Flush - Normal Saline) 10 ml IVF Q12HR [facility] Last Admin: 07/30/17 08:32 Dose: 10 ml Sodium Chloride (Flush - Normal Saline) 10 ml IVF PRN PRN PRN Reason: Saline Flush Last Admin: 07/29/17 05:40 Dose: 10 ml
--- NOTE | 2017-07-30 19:03 | EKG ---
Test Reason : Blood Pressure : / mmHG Vent. Rate : 100 BPM Atrial Rate : 100 BPM P-R Int : 170 ms QRS Dur : 100 ms QT Int : 354 ms P-R-T Axes : 068 -35 133 degrees QTc Int : 456 ms Sinus rhythm with Fusion complexes Left axis deviation T wave abnormality, consider lateral ischemia Abnormal ECG Confirmed by RADHA MITCHELL, LEE ANN ([id number]), video news editor [place] ([id number]) on 07/30/2017 7:02:28 PM Referred By: Confirmed By:LEE ANN GARCIA MD
[2017-07-31] MEDS: HumaLOG 300 UNITS/3 ML VIAL SC PRN ×3 (05:15→20:09)
[2017-07-31] MEDS: Furosemide 40 MG/4 ML VIAL SLOW IVP SCH (05:15)
[2017-07-31] MEDS: metFORMIN 850 MG TAB PO SCH ×2 (08:15→16:47)
[2017-07-31] MEDS: glipiZIDE 5 MG TAB PO SCH (08:15)
[2017-07-31] MEDS: Carvedilol 3.125 MG TAB PO SCH ×2 (08:16→20:06)
[2017-07-31] MEDS: Metolazone 2.5 MG TAB PO SCH (08:16)
[2017-07-31] MEDS: Aspirin 81 mg Enteric Coated Tablet PO SCH (08:16)
[2017-07-31] MEDS: Enoxaparin Sodium 40 MG/0.4 ML SYRINGE SC SCH (08:17)
[2017-07-31] MEDS: Lisinopril 2.5 MG TAB PO SCH (08:17)
[2017-07-31] MEDS: Nicotine 14 MG PATCH TD SCH (08:18)
--- NOTE | 2017-07-31 08:20 | PDOC.PN ---
- Subjective Encounter Start Date: 07/31/17 Encounter Start Time: 08:18 Subjective: feels much better - Objective MAR Reviewed: Yes Vital Signs & Weight: Vital Signs (12 hours) Temp Pulse Resp BP BP Pulse Ox 07/31/17 07:48 97.6 F 77 16 101/57 L 92 L 07/31/17 04:00 97.7 F 78 18 108/56 L 91 L 07/31/17 00:00 97.9 F 77 18 95/50 L 92 L 07/30/17 19:50 97.5 F L 73 16 97 07/30/17 19:40 97.5 F L 73 16 118/55 L 97 Weight Admit Weight 306 lb 9.6 oz Weight 281 lb 14.4 oz I&O: 07/30/17 07/31/17 08/01/17 05:59 06:59 06:59 Intake Total Output Total Balance Result Diagrams: 07/30/17 05:06 07/30/17 05:06 Additional Labs: Accuchecks 07/31/17 07/30/17 07/30/17 03:45 20:20 16:40 POC Glucose 226 H 181 H 131 H 07/30/17 11:07 POC Glucose 209 H Radiology Reviewed by me: Yes Phys Exam - Physical Examination Constitutional: NAD HEENT: PERRLA, moist MMs, sclera anicteric Neck: supple, full ROM Respiratory: no wheezing, no rhonchi Cardiovascular: RRR Gastrointestinal: soft, non-tender obese trace Neurological: non-focal, moves all 4 limbs Psychiatric: normal affect, A&O x 3 Deviation from normal: stasis changes ble Dx/Plan (1) NSVT (nonsustained ventricular tachycardia) Code(s): I47.2 - VENTRICULAR TACHYCARDIA Status: Acute Comment: Discussed with patient. Magnesium replaced, recheck in AM. Pt does not want ICD placement. Cardiology following. (2) Acute on chronic combined systolic and diastolic congestive heart failure Code(s): I50.43 - ACUTE ON CHRONIC COMBINED SYSTOLIC AND DIASTOLIC HRT FAIL Status: Acute Comment: Pt responding well to IV diuretics, likely transition to oral diuretics tomorrow (3) Demand ischemia of myocardium Code(s): I24.8 - OTHER FORMS OF ACUTE ISCHEMIC HEART DISEASE Status: Acute (4) Hyponatremia Code(s): E87.1 - HYPO-OSMOLALITY AND HYPONATREMIA Status: Acute (5) DM (diabetes mellitus), type 2, uncontrolled Code(s): E11.65 - TYPE 2 DIABETES MELLITUS WITH HYPERGLYCEMIA Status: Chronic Qualifiers: Diabetes mellitus complication status: with hyperglycemia Diabetes mellitus fdc insulin use: without fdc use Qualified Code(s): E11.65 - Type 2 diabetes mellitus with hyperglycemia Comment: Continue accuchecks, insulin sliding scale (6) Dyslipidemia Code(s): E78.5 - HYPERLIPIDEMIA, UNSPECIFIED Status: Chronic (7) HTN (hypertension) Code(s): I10 - ESSENTIAL (PRIMARY) HYPERTENSION Status: Chronic Qualifiers: Hypertension type: essential hypertension Qualified Code(s): I10 - Essential (primary) hypertension Comment: Monitor vital signs, titrate antihypertensives as needed (8) Leg wound, left Code(s): S81.802A - UNSPECIFIED OPEN WOUND, LEFT LOWER LEG, INITIAL ENCOUNTER Status: Chronic Comment: Improved, polymicrobial with pseudomonas and MRSA spp , continue Cipro and Doxycycline, local WCT (9) Morbid obesity with BMI of 45.0-49.9, adult Code(s): E66.01 - MORBID (SEVERE) OBESITY DUE TO EXCESS CALORIES; Z68.42 - BODY MASS INDEX (BMI) 45.0-49.9, ADULT Status: Chronic (10) Non compliance w medication regimen Code(s): Z91.14 - PATIENT'S OTHER NONCOMPLIANCE WITH MEDICATION REGIMEN Status : Chronic - Plan cont current plan of care improved status, Mg levels normal. home once p.o lasix restarted -: Home per cardiology * .
[2017-07-31] MEDS: Furosemide 40 MG TAB PO SCH (14:22)
--- NOTE | 2017-07-31 17:06 | PRG ---
DATE OF SERVICE: 07/31/2017 SUBJECTIVE: Mr. Fu is stable, no current complaints. PHYSICAL EXAMINATION: VITAL SIGNS: Blood pressure 96/86, pulse 71, temperature afebrile, -3245 total net. Weight down fro m 306 to 281. LUNGS: Clear to auscultation. CARDIAC: Regular rate and rhythm. ABDOMEN: Soft, nontender, nondistended. EXTREMITIES: No edema. IMPRESSION: 1. Acute systolic heart failure. 2. Ischemic cardiomyopathy. 3. Noncompliance. RECOMMENDATIONS: The patient's symptoms have improved. He has had nonsustained VT on the monitor, b ut is not interested in any further therapy or treatment. He understands the risk of sudden cardiac . Otherwise, further recommendations per Dr. Josh Aguero in a.m.
[2017-08-01] MEDS: HumaLOG 300 UNITS/3 ML VIAL SC PRN ×2 (04:59→11:35)
[2017-08-01] MEDS: Furosemide 40 MG TAB PO SCH (04:59)
[2017-08-01 05:00] LABS: Anion Gap 13 mmol/L (10-20); BUN (Urea Nitrogen) 26 mg/dL (8.4-25.7); Calc. Creatinine Clearance 138 mL/min (70-130); Calcium 9.5 mg/dL (7.8-10.44); Carbon Dioxide 28 mmol/L (23-31); Chloride 94 mmol/L (98-107); Estimated GFR-MDRD 76; Glucose 218 mg/dL (80-115); Potassium 3.9 mmol/L (3.5-5.1); Sodium 131 mmol/L (136-145)
[2017-08-01] MEDS: glipiZIDE 5 MG TAB PO SCH (08:44)
[2017-08-01] MEDS: Lisinopril 2.5 MG TAB PO SCH (08:44)
[2017-08-01] MEDS: Aspirin 81 mg Enteric Coated Tablet PO SCH (08:44)
[2017-08-01] MEDS: Metolazone 2.5 MG TAB PO SCH (08:44)
[2017-08-01] MEDS: Carvedilol 3.125 MG TAB PO SCH (08:44)
[2017-08-01] MEDS: metFORMIN 850 MG TAB PO SCH (08:44)
[2017-08-01] MEDS: Enoxaparin Sodium 40 MG/0.4 ML SYRINGE SC SCH (08:45)
[2017-08-01] MEDS: Nicotine 14 MG PATCH TD SCH (08:45)
[2017-08-01 11:33] VITALS: BP 128/68; TEMP 98.1
--- NOTE | 2017-08-01 14:32 | DIS ---
DATE OF ADMISSION: 07/26/2017 DATE OF DISCHARGE: 08/01/2017 PRIMARY DISCHARGE DIAGNOSES: Acute on chronic congestive heart failure exacerbation. HOSPITAL COURSE: Patient is a 61-year-old gentleman with history of systolic congestive heart failur e. The patient admitted that he had been noncompliant with his diuretics and other medications secon tom to financial issues. He was adequately diuresed during this hospitalization. The patient was s een and assessed by the proposal specialist service. The patient was noted to have a nonsustained ventricul ar tachycardia during this hospital stay. Business Services Officer, Dr. Fu of Cardiology offered the patien t additional therapy and treatment. The patient refused additional cardiac treatment and was advised of the risk of sudden cardiac . The patient had a nuclear stress test performed during this ho spital stay, which showed abnormal myocardial perfusion with scarring with suggestion of minimal reve rsible defect with abnormal left ventricular function with severe global hypokinesis and akinesis wit h an estimated ventricular ejection fraction of 26%. The patient improved during his hospital stay a fter diuresis. He was strongly encouraged to be compliant with medications and to follow up with his PCP as needed. CONSULTANTS: Cardiology. PROCEDURES: Nuclear stress test, results as dictated above. DISCHARGE MEDICATIONS: He is or is to resume his home medications based on his reconciliation form. DISPOSITION: To home. DISCHARGE DIET: Heart healthy. DISCHARGE ACTIVITY: As tolerated. PHYSICAL EXAMINATION: Upon discharge, GENERAL: He is in no acute distress. HEAD: Normocephalic, atraumatic. EYES: PERRL. CARDIAC: Regular rate and rhythm. There is a systolic ejection murmur present. LUNGS: Clear to auscultation. ABDOMEN: Obese, nontender. EXTREMITIES: No clubbing or cyanosis. There is 1+ edema bilaterally. FOLLOWUP: He is to see his PCP within 1-2 weeks. He is also to follow up with his proposal specialist as kylie mendez.
== END 2017-08-01 13:04 | disposition home or self-care (01) | DRG 292 ==
LOC: ERS 19:37 → ERHOLD 22:25 → 2SE 23:43
PROVIDERS: ADMIT Internal Medicine; ATTEND Internal Medicine
DX: I11.0 Hypertensive heart disease with heart failure (principal); I47.1 Supraventricular tachycardia; Z95.1 Presence of aortocoronary bypass graft; E11.65 Type 2 diabetes mellitus with hyperglycemia; I24.8 Other forms of acute ischemic heart disease; Z68.41 Body mass index [BMI] 40.0-44.9, adult; E87.1 Hypo-osmolality and hyponatremia; F17.210 Nicotine dependence, cigarettes, uncomplicated; I25.10 Atherosclerotic heart disease of native coronary artery without angina pectoris; I50.23 Acute on chronic systolic (congestive) heart failure; Z91.120 Patient's intentional underdosing of medication regimen due to financial hardship; Z79.4 Long term (current) use of insulin; I25.5 Ischemic cardiomyopathy; E66.01 Morbid (severe) obesity due to excess calories; E78.5 Hyperlipidemia, unspecified
CPT/HCPCS: 36415; 36416; 71045; 78452; 80048; 80053; 80061; 82550; 82553; 83735; 83880; 84484; 85025; 93005; 93017; 93798; 94760; 96374; 96376; 99406; A4216; A9500; J0153; J1650; J1940; J3475

== ENCOUNTER 2017-12-01 20:52 | Inpatient (IN) | payer MEDICARE ==
[2017-12-01 21:43] LABS: #Basophils 0.1 thou/uL (0.0-0.2); #Eosinphils 0.2 thou/uL (0.0-0.7); #Lymphocytes 1.6 thou/uL (1.20-3.40); #Monocytes 0.7 thou/uL (0.11-0.59); #Neutrophils 4.6 thou/uL (1.40-6.50); %Basophils 1.1 % (0.0-1.0); %Eosinophils 2.8 % (0.0-10.0); %Lymphocytes 22.5 % (21.0-51.0); %Monocytes 9.3 % (0.0-10.0); %Neutrophils 64.2 % (42.0-75.0); Hemoglobin 13.7 g/dL (14.0-18.0); Mean Corpuscular HGB CONC 31.6 g/dL (32.0-36.0); Mean Corpuscular Hemoglobin 27.7 pg (27.0-31.0); Mean Corpuscular Volume 87.8 fL (78.0-98.0); Mean Platelet Volume 8.8 fL (7.4-10.4); Platelet Count 164 thou/uL (130-400); RBC Distribution Width 15.5 % (11.5-14.5); Red Blood Cell (RBC) Count 4.95 mill/uL (4.70-6.10); White Blood Cell (WBC) Count 7.1 thou/uL (4.8-10.8)
--- NOTE | 2017-12-01 21:52 | RAD ---
PORTABLE UPRIGHT FRONTAL CHEST RADIOGRAPH 12/01/17 COMPARISON: 07/26/17 HISTORY: Bilateral leg swelling for two weeks with chest pain. FINDINGS: Midline sternotomy wires are present. Atherosclerotic calcification of the aortic arch noted. No pneu mothorax, pleural fluid, focal consolidation or alveolar edema. Stable prominence of the cardiac silh ouette. Pulmonary vascular congestion noted with diffuse increased linear interstitial density, stabl e. IMPRESSION: Stable appearance of the chest. Pulmonary vascular congestion and interstitial density may signify in terstitial pulmonary edema in the proper clinical setting. POS: [id number]
[2017-12-01 22:06] LABS: ALT (SGPT) 9 U/L (8-55); AST (SGOT) 13 U/L (5-34); Albumin 3.5 g/dL (3.4-4.8); Alkaline Phosphatase 122 U/L (40-150); Anion Gap 13 mmol/L (10-20); BUN (Urea Nitrogen) 18 mg/dL (8.4-25.7); Bilirubin, Total 0.5 mg/dL (0.2-1.2); CK (CPK) 63 U/L (30-200); Calc. Creatinine Clearance 0 mL/min (70-130); Calcium 9.1 mg/dL (7.8-10.44); Carbon Dioxide 24 mmol/L (23-31); Chloride 103 mmol/L (98-107); Estimated GFR-MDRD 86; Globulin 3.9 g/dL (2.4-3.5); Glucose 256 mg/dL (80-115); Potassium 4.2 mmol/L (3.5-5.1); Protein, Total 7.4 g/dL (5.8-8.1); Sodium 136 mmol/L (136-145)
[2017-12-01 22:11] LABS: CKMB 1.8 ng/mL (0-6.6); Troponin I Less than 0.010 ng/mL (< 0.028)
[2017-12-01] MEDS ORDERED: Furosemide 40 MG/4 ML VIAL ONE (22:32)
[2017-12-01 23:16] LABS: Bilirubin Negative (Negative); Blood, Urine Small (Negative); Clarity CLEAR (Clear); Glucose, Urine (Dipstick) 250 mg/dL (Negative); Leukocyte Negative (Negative); Nitrite Negative (Negative); Protein, Urine (Dipstick) 100 mg/dL (Neg-Trace); Specific Gravity, Urine 1.014 (1.002-1.036); pH, Urine 6.5 (5.0-9.0)
[2017-12-01 23:18] LABS: Bacteria/HPF None Seen HPF (None Seen); Hyaline Casts/LPF 0-3 HYALINE CAST LPF (0-3 Hyaline); Squamous Epithelial None Seen HPF (0-3); WBC/HPF 0-3 HPF (0-3)
[2017-12-01 23:27] LABS: Amphetamine Not Detected (NotDetected); Barbiturates Screen Not Detected (NotDetected); Benzodiazepine Screen Not Detected (NotDetected); Cocaine Metabolite Screen Not Detected (NotDetected); Medtox Control Line Valid? VALID (VALID); Medtox Reader # READER 4; Methadone Not Detected (NotDetected); Methamphetamine Not Detected (NotDetected); Opiate Screen Not Detected (NotDetected); Oxycodone Screen Not Detected (NotDetected); Phencyclidine (PCP) Not Detected (NotDetected); THC/Cannabinoid Screen Not Detected (NotDetected); Tricyclic Screen Not Detected (NotDetected)
[2017-12-02] MEDS ORDERED: Bacitracin Zinc 1 Packet ONE (00:11)
[2017-12-02] MEDS ORDERED: Clindamycin/D5W 600 mg/50 ml Premix Bag ONE (00:48)
--- NOTE | 2017-12-02 04:31 | PDOC.FPRHP ---
- History of Present Illness Chief Complaint: leg swelling, chest pressure History of Present Illness: 60 yo M with PMH of CHF, CAD, DM, s/p CABG presents with leg swelling and chest pressure for past two weeks. At baseline, patient has b/l leg swelling but in the past two weeks it has worsened. He also noticed new wounds on each leg forming. The chest pressure started two weeks ago, is mid-chest, does not radiate nor worse with exertion. He also endorses feeling SOB that is worse when he lays flat and with exertion. He states he's been admitted to the hospital several times for leg swelling and heart problems and does not always take his prescribed meds. ED Course: In the ED he was given Lasix and started on Clindamycin for the ulcers/ suspected cellulitis - Allergies/Adverse Reactions Allergies Allergy/AdvReac Type Severity Reaction Status Date / Time No Known Drug Allergies Allergy Unknown Verified 12/02/17 05:27 - Home Medications Medication Instructions Recorded Confirmed Type Metoprolol Succinate [Toprol XL] 25 mg PO DAILY 07/27/17 12/02/17 History Furosemide [Lasix] 40 mg PO DAILY 12/02/17 12/02/17 History - History PMHx: CAD, DM, CHF PSHx: s/p CABG FHx: Mom and dad of [place] Social: Smokes 1 cig/mon x10 yrs, socially drinks, no drugs - Review of Systems General: denies: fever/chills, weight/appetite/sleep changes, night sweats Eyes: denies: eye pain Respiratory: reports: shortness of breath, exercise intolerance. denies: cough Cardiovascular: denies: chest pain Genitourinary: reports: polyuria. denies: dysuria Musculoskeletal: denies: pain, tenderness Neurological: denies: numbness, syncope Psychological: denies: anxiety, depression - Vital signs BP: [128/72] HR: [88] RR: [21] Tmax: [97.8] Pox: [93]% on [RA] Wt: [] - Physical Exam Constitutional: NAD, awake, alert and oriented HEENT: normocephalic and atraumatic, EOMI -HEENT: poor dentition. Chest: no-tender to palpation Heart: RRR, pulses present Lungs: CTAB, good air movement, no wheezing Skin: capillary refill <2 seconds -Skin: BLE edema, 2+, chronic skin discoloration with dry, flaky skin on feet as well. Lower extremity sensation and motor grossly intact. Presence of open, purulent draining wound on each leg. Roughly 1 inch in diameter. Mildly surrounding erythma, but limited to around margins of wound. Legs are not warm nor tender to touch. Psychiatric: normal mood and affect FMR H&P: Results - Labs Result Diagrams: 12/02/17 05:57 12/02/17 05:57 Lab results: WBC 7.1 thou/uL (4.8-10.8) 12/01/17 21:38 Hgb 13.7 g/dL (14.0-18.0) L 12/01/17 21:38 Hct 43.4 % (42.0-52.0) 12/01/17 21:38 MCV 87.8 fL (78.0-98.0) 12/01/17 21:38 Plt Count 164 thou/uL (130-400) 12/01/17 21:38 Neutrophils % 64.2 % (42.0-75.0) 12/01/17 21:38 Sodium 136 mmol/L (136-145) 12/01/17 21:38 Potassium 4.2 mmol/L (3.5-5.1) 12/01/17 21:38 Chloride 103 mmol/L (98-107) 12/01/17 21:38 Carbon Dioxide 24 mmol/L (23-31) 12/01/17 21:38 BUN 18 mg/dL (8.4-25.7) 12/01/17 21:38 Creatinine 0.90 mg/dL (0.6-1.3) 12/01/17 21:38 Glucose 256 mg/dL (80-115) H 12/01/17 21:38 Calcium 9.1 mg/dL (7.8-10.44) 12/01/17 21:38 Total Bilirubin 0.5 mg/dL (0.2-1.2) 12/01/17 21:38 AST 13 U/L (5-34) 12/01/17 21:38 ALT 9 U/L (8-55) 12/01/17 21:38 Alkaline Phosphatase 122 U/L (40-150) 12/01/17 21:38 Creatine Kinase 63 U/L (30-200) 12/01/17 21:38 CK-MB (CK-2) 1.8 ng/mL (0-6.6) 12/01/17 21:38 B-Natriuretic Peptide 493.6 pg/mL (0-100) H 12/01/17 21:42 Serum Total Protein 7.4 g/dL (5.8-8.1) 12/01/17 21:38 Albumin 3.5 g/dL (3.4-4.8) 12/01/17 21:38 Urine Ketones Negative mg/dL (Negative) 12/01/17 23:11 Urine Blood Small (Negative) H 12/01/17 23:11 Urine Nitrite Negative (Negative) 12/01/17 23:11 Ur Leukocyte Esterase Negative (Negative) 12/01/17 23:11 Urine RBC 7-10 HPF (0-3) H 12/01/17 23:11 Urine WBC 0-3 HPF (0-3) 12/01/17 23:11 Ur Squamous Epith Cells None Seen HPF (0-3) 12/01/17 23:11 Urine Bacteria None Seen HPF (None Seen) 12/01/17 23:11 - EKG Interpretation EKG: EKG shows sinus rhythm with some T wave abnormality and prolonged QT - Radiology Interpretation Chest x-ray Status: image reviewed by me, report reviewed by me Additional comment: CXR showed evidence of pulmonary congestion FMR H&P: A/P - Problem List (1) Acute exacerbation of CHF (congestive heart failure) Current Visit: Yes Status: Acute Code(s): I50.9 - HEART FAILURE, UNSPECIFIED (2) Venous stasis ulcer Current Visit: Yes Status: Acute Code(s): I83.009 - VARICOSE VEINS OF UNSP LOWER EXTREMITY W ULCER OF UNSP SITE; L97.909 - NON-PRS CHRONIC ULC UNSP PRT OF UNSP LOW LEG W UNSP SEVERITY (3) Asymptomatic microscopic hematuria Current Visit: Yes Status: Acute Code(s): R31.21 - ASYMPTOMATIC MICROSCOPIC HEMATURIA (4) Diabetes mellitus Current Visit: Yes Status: Chronic Code(s): E11.9 - TYPE 2 DIABETES MELLITUS WITHOUT COMPLICATIONS (5) Heart failure with reduced ejection fraction Current Visit: Yes Status: Chronic Code(s): I50.20 - UNSPECIFIED SYSTOLIC ( CONGESTIVE) HEART FAILURE (6) Coronary artery disease Current Visit: Yes Status: Chronic Code(s): I25.10 - ATHSCL HEART DISEASE OF [place] CORONARY ARTERY W/O ANG PCTRS - Plan 61 yo M with acute on chronic CHF exacerbation, venous stasis ulcers, DM, CAD, Microscopic hematuria, HFrEF. 1. Acute CHF exacerbation -Lasix 40mg -Echocardiogram 2. Venous stasis ulcers vs. diabetic skin infection -Wound culture and gram stain -Will consult wound care -Clindamycin 600mg q8hr 3. Microscopic hematuria, unknown etiology -Will monitor renal function 4. DM -Will on sliding scale -Metformin 500mg BID -Will order on HbA1c 5. HFrEF 2/2 ischemic cardiomyopathy -Nuclear stress test done on 07/2017 show EF of 26%, abnormal LV function and ischemic changes -Echo from 01/2017 show EF of 25-30% -At that time patient declined desire for further intervention -Will talk to patient about options 6. CAD s/p CABG FMR H&P: Upper Level - Pertinent history 61 yr old male with MPH of CHF presents for LE swelling, SOB, and leg pain. He reports progressive SOB over the last 2 weeks and leg swelling. Legs began to have discharge about a week ago. He denies fever. + orthopnea. He has not been taking his meds except Lasix and a heart medicine for several months due to finances. - Pertinent findings Gen: NAD, HEENT: PERRLA Cardiac: RRR, no M/R/G Lungs: CTAB no wheeze, rhales, rhonchi Abd: BS normal active, non tender EXT: 4+ edema in BLE, dorsalis pedis pulse 1+, approx. 4 cm x 2 cm ulcer with purulent discharge on LLE arechiga, approx. 2 cm x 2 cm ulcer with purulent discharge on RLE medial arechiga BNP 493 CXR: stable pulm vascular congestion, interstitial density, pul edema - Plan Date/Time: 12/02/17 0426 I, [Susan Olivares], have evaluated this patient and agree with findings/plan as outlined by information technology intern resident. Pertinent changes/additions are listed here. 61 yr old male with SOB and leg discharge Acute on chronic CHF with exacerbation -lasix 80 mg IV in ER with good output -cont with 40 mg Lasix in AM Likely venous stasis ulcer with infection -non septic -cont clindamycin -culture and GS of ulcer CAD s/p CABG -recent nuc stress test with no reversible changes -patient declined further cardiac treatment in last hospitalization -no chest pain at this time DM II -hgb A1C -start metformin -SSI Ischemic cardiomyopathy, HFrEF -last EF 26% in 07/2017 Microscopic hematuria -repeat UA Attending Addendum - Attending Addendum Date/Time: 12/02/17 1341 I personally evaluated the patient and discussed the management with I agree with the History, Examination, Assessment and Plan documented above with any addition or exceptions noted below. 61 yo with exacerbation heart failure secondary to noncompliance admitted with fluid overload no evidence acute ischemia. Notable previous documented low EF patient has previously declined consideration of ICD patient aware of benefits of procedure. Patient with venous stasis ulcer lower extremities, wound care has been consulted. Will admit add ACEI now and BB(coreg) when more hemodyamically stable start fluid and Sodium restriction. Patient will be evaluated for health care financial assistance.
--- NOTE | 2017-12-02 05:02 | PDOC.FM ---
- Subjective Subjective: Mr Fu is a 61 yo M with pmh of DM, CAD s/p CABG, HLD, HFrEF presenting with SOB likely 2/2 to acute on chronic CHF exacerbation, and venous stasis ulcers, and microscopic hematuria. He has no complains or questions today. Denies worsening SOB from baseline, chest pain, fever, chills, or pain in his legs. - Objective MAR Reviewed: Yes Result Diagrams: 12/02/17 05:57 12/02/17 05:57 <Yoanna Arrieta - Last Filed: 12/02/17 11:32> - Objective Vital Signs & Weight: Vital Signs (12 hours) Temp Pulse Resp BP BP BP Pulse Ox 12/02/17 16:14 97.8 F 79 20 113/78 94 L 12/02/17 12:48 97.8 F 79 16 108/68 98 12/02/17 12:00 97.5 F L 91 20 114/73 97 12/02/17 09:04 87 129/80 12/02/17 08:00 97.7 F 87 21 H 97 12/02/17 07:39 97.7 F 87 20 129/80 97 12/02/17 05:15 97.9 F 88 22 H 117/77 95 12/02/17 05:10 97.9 F 88 22 H 95 Weight Admit Weight 131.088 kg Weight 131.088 kg Result Diagrams: 12/02/17 05:57 12/02/17 05:57 <Erlin De Los Santos - Last Filed: 12/02/17 17:00> Phys Exam - Physical Examination Constitutional: NAD Respiratory: clear to auscultation bilateral Cardiovascular: RRR Gastrointestinal: soft, non-tender, positive bowel sounds Musculoskeletal: pulses present, edema present Psychiatric: normal affect, A&O x 3 Skin: cap refill <2 seconds Deviation from normal: Venous stasis skin changes -: Open, purulent draining wound on each leg. Roughly 1 inch in diameter <Yoanna Arrieta - Last Filed: 12/02/17 11:32> Dx/Plan (1) Acute exacerbation of CHF (congestive heart failure) Code(s): I50.9 - HEART FAILURE, UNSPECIFIED Status: Acute (2) Asymptomatic microscopic hematuria Code(s): R31.21 - ASYMPTOMATIC MICROSCOPIC HEMATURIA Status: Acute (3) Venous stasis ulcer Code(s): I83.009 - VARICOSE VEINS OF UNSP LOWER EXTREMITY W ULCER OF UNSP SITE; L97.909 - NON-PRS CHRONIC ULC UNSP PRT OF UNSP LOW LEG W UNSP SEVERITY Status : Acute (4) Coronary artery disease Code(s): I25.10 - ATHSCL HEART DISEASE OF [place] CORONARY ARTERY W/O ANG PCTRS Status: Chronic (5) Diabetes mellitus Code(s): E11.9 - TYPE 2 DIABETES MELLITUS WITHOUT COMPLICATIONS Status: Chronic (6) Heart failure with reduced ejection fraction Code(s): I50.20 - UNSPECIFIED SYSTOLIC (CONGESTIVE) HEART FAILURE Status: Chronic (7) Dyslipidemia Code(s): E78.5 - HYPERLIPIDEMIA, UNSPECIFIED Status: Chronic (8) HTN (hypertension) Code(s): I10 - ESSENTIAL (PRIMARY) HYPERTENSION Status: Chronic QualifierTitle: Hypertension type: essential hypertension Qualified Code( s): I10 - Essential (primary) hypertension (9) Morbid obesity with BMI of 40.0-44.9, adult Code(s): E66.01 - MORBID (SEVERE) OBESITY DUE TO EXCESS CALORIES; Z68.41 - BODY MASS INDEX (BMI) 40.0-44.9, ADULT Status: Chronic (10) Non compliance w medication regimen Code(s): Z91.14 - PATIENT'S OTHER NONCOMPLIANCE WITH MEDICATION REGIMEN Status : Chronic - Plan Plan: 61 yo M with pmh of DM, CAD s/p CABG, HLD, HFrEF presenting with SOB likely 2/2 to acute on chronic CHF exacerbation, and venous stasis ulcers, and microscopic hematuria. 1. Acute on chronic HFrEF exacerbation - Lasix 80mg IV in ED - CXR: Pulm vascular congestion and interstitial density may signify interstitial pulmonary edema - Continue Lasix 40mg IV BID - Echo - Fluid restriction 1500L - Weights, strict I&O's 2. Venous stasis ulcers vs. diabetic skin infection - Initial vitals: afebrile, HR 88, BP 117/77 - WBC 7.1 - Wound cx and gram stain - Consulted wound care - Clindamycin 600mg q8hr 3. Microscopic hematuria, unknown etiology - Monitor renal function - Repeat UA 4. DM - Was on insulin and metformin at home in the past but has been unable to afford it - SSI, consider starting - Metformin 500mg BID - HbA1c pending - Will consult CM for financial assistance & f/u appts 5. HFrEF 2/2 ischemic cardiomyopathy - Nuclear stress (07/2017), EF of 26%, abnormal LV function and ischemic changes. No reversible changes - Echo 01/2017: EF of 25-30% - At that time patient declined desire for further intervention 6. CAD s/p CABG - no chest pain at this time Code status: FULL DVT ppx: Lovenox & SCDs GI ppx: None <Yoanna Arrieta - Last Filed: 12/02/17 11:32> (1) Acute exacerbation of CHF (congestive heart failure) Code(s): I50.9 - HEART FAILURE, UNSPECIFIED Status: Acute (2) Venous stasis ulcer Code(s): I83.009 - VARICOSE VEINS OF UNSP LOWER EXTREMITY W ULCER OF UNSP SITE; L97.909 - NON-PRS CHRONIC ULC UNSP PRT OF UNSP LOW LEG W UNSP SEVERITY Status : Acute (3) Asymptomatic microscopic hematuria Code(s): R31.21 - ASYMPTOMATIC MICROSCOPIC HEMATURIA Status: Acute (4) Diabetes mellitus Code(s): E11.9 - TYPE 2 DIABETES MELLITUS WITHOUT COMPLICATIONS Status: Chronic (5) Heart failure with reduced ejection fraction Code(s): I50.20 - UNSPECIFIED SYSTOLIC (CONGESTIVE) HEART FAILURE Status: Chronic (6) Coronary artery disease Code(s): I25.10 - ATHSCL HEART DISEASE OF [place] CORONARY ARTERY W/O ANG PCTRS Status: Chronic <Erlin De Los Santos - Last Filed: 12/02/17 17:00> Attending Addendum - Attending Addendum Date/Time: 12/02/17 0073 I personally evaluated the patient and discussed the management with Dr. Arrieta I agree with the History, Examination, Assessment and Plan documented above with any addition or exceptions noted below. Will need to f/u microscopic hematuria as outpatient. <Erlin De Los Santos - Last Filed: 12/02/17 17:00>
[2017-12-02 05:31] VITALS: BMI 46.6
[2017-12-02] MEDS ORDERED: Ondansetron ODT 4 MG TAB PO PRN (05:41)
[2017-12-02] MEDS ORDERED: Dextrose 5% in Water 1,000 ML IV PRN (05:41)
[2017-12-02] MEDS ORDERED: Acetaminophen 325 MG TAB PO PRN (05:41)
[2017-12-02] MEDS ORDERED: Dextrose 50% Abboject 50 ML SYRINGE SLOW IVP PRN (05:41)
[2017-12-02] MEDS ORDERED: Clindamycin/D5W 600 MG in Premix Bag 1 BAG IVPB SCH (06:00)
[2017-12-02 06:12] LABS: #Basophils 0.1 thou/uL (0.0-0.2); #Eosinphils 0.2 thou/uL (0.0-0.7); #Lymphocytes 1.4 thou/uL (1.20-3.40); #Monocytes 0.6 thou/uL (0.11-0.59); #Neutrophils 4.8 thou/uL (1.40-6.50); %Basophils 0.9 % (0.0-1.0); %Lymphocytes 20.1 % (21.0-51.0); %Monocytes 8.6 % (0.0-10.0); %Neutrophils 67.4 % (42.0-75.0); Hemoglobin 13.9 g/dL (14.0-18.0); Mean Corpuscular HGB CONC 33.7 g/dL (32.0-36.0); Mean Corpuscular Hemoglobin 29.3 pg (27.0-31.0); Mean Corpuscular Volume 86.7 fL (78.0-98.0); Mean Platelet Volume 8.7 fL (7.4-10.4); Platelet Count 163 thou/uL (130-400); RBC Distribution Width 15.6 % (11.5-14.5); Red Blood Cell (RBC) Count 4.75 mill/uL (4.70-6.10); White Blood Cell (WBC) Count 7.1 thou/uL (4.8-10.8)
[2017-12-02 06:18] LABS: Anion Gap 11 mmol/L (10-20); BUN (Urea Nitrogen) 16 mg/dL (8.4-25.7); Calc. Creatinine Clearance 165 mL/min (70-130); Calcium 9.1 mg/dL (7.8-10.44); Carbon Dioxide 29 mmol/L (23-31); Chloride 101 mmol/L (98-107); Estimated GFR-MDRD 89; Glucose 259 mg/dL (80-115); Potassium 3.7 mmol/L (3.5-5.1); Sodium 137 mmol/L (136-145)
[2017-12-02] MEDS: HumaLOG 300 UNITS/3 ML VIAL SC PRN ×3 (06:40→17:18)
[2017-12-02] MEDS: Clindamycin/D5W 600 MG in Premix Bag 1 BAG IVPB SCH ×3 (08:38→23:35)
[2017-12-02] MEDS: Enoxaparin Sodium 40 MG/0.4 ML SYRINGE SC SCH (08:39)
[2017-12-02] MEDS: metFORMIN 500 MG TAB PO SCH ×2 (08:39→16:26)
[2017-12-02] MEDS ORDERED: Furosemide 40 MG/4 ML VIAL SLOW IVP SCH (09:00)
[2017-12-02] MEDS: Lisinopril 5 MG TAB PO SCH (09:04)
[2017-12-02] MEDS: Furosemide 40 MG/4 ML VIAL SLOW IVP SCH (20:12)
[2017-12-03 05:04] LABS: #Basophils 0.1 thou/uL (0.0-0.2); #Eosinphils 0.2 thou/uL (0.0-0.7); #Lymphocytes 1.6 thou/uL (1.20-3.40); #Monocytes 0.7 thou/uL (0.11-0.59); %Eosinophils 3.1 % (0.0-10.0); %Lymphocytes 21.1 % (21.0-51.0); %Monocytes 9.3 % (0.0-10.0); %Neutrophils 65.6 % (42.0-75.0); Hemoglobin 13.6 g/dL (14.0-18.0); Mean Corpuscular HGB CONC 31.8 g/dL (32.0-36.0); Mean Corpuscular Hemoglobin 28.1 pg (27.0-31.0); Mean Corpuscular Volume 88.3 fL (78.0-98.0); Mean Platelet Volume 9.1 fL (7.4-10.4); Platelet Count 165 thou/uL (130-400); RBC Distribution Width 15.6 % (11.5-14.5); Red Blood Cell (RBC) Count 4.86 mill/uL (4.70-6.10); White Blood Cell (WBC) Count 7.5 thou/uL (4.8-10.8)
[2017-12-03 05:21] LABS: Anion Gap 10 mmol/L (10-20); BUN (Urea Nitrogen) 20 mg/dL (8.4-25.7); Calc. Creatinine Clearance 168 mL/min (70-130); Calcium 8.8 mg/dL (7.8-10.44); Carbon Dioxide 30 mmol/L (23-31); Chloride 100 mmol/L (98-107); Estimated GFR-MDRD Greater than 90; Glucose 188 mg/dL (80-115); Sodium 136 mmol/L (136-145)
[2017-12-03] MEDS: HumaLOG 300 UNITS/3 ML VIAL SC PRN ×3 (05:48→17:32)
--- NOTE | 2017-12-03 07:47 | PDOC.FM ---
- Subjective Subjective: Mr Fu is a 61yo male with pmh of DM, CAD s/p CABG, HLD, HFrEF presenting with SOB likely 2/2 to acute on chronic CHF exacerbation, and venous stasis ulcers, and microscopic hematuria. Today he is feeling well. Denies Chest pain, shortness of breath, or leg pain. Would like to work on paperwork for follow up appointment. - Objective MAR Reviewed: Yes Vital Signs & Weight: Vital Signs (12 hours) Temp Pulse Resp BP BP Pulse Ox 12/03/17 07:29 80 20 157/110 H 12/03/17 07:21 97.8 F 77 16 114/77 95 12/03/17 04:00 97.7 F 74 18 97/60 92 L 12/03/17 02:21 96 12/02/17 23:41 97.6 F 79 20 120/68 96 12/02/17 20:00 98.3 F 94 20 115/69 92 L Weight Admit Weight 131.088 kg Weight 128.956 kg I&O: 12/02/17 12/03/17 12/04/17 06:59 06:59 06:59 Intake Total 1370 Output Total 2300 Balance -930 Result Diagrams: 12/03/17 04:06 12/03/17 04:06 Phys Exam - Physical Examination Constitutional: NAD Respiratory: clear to auscultation bilateral Cardiovascular: RRR Gastrointestinal: soft, non-tender, positive bowel sounds Musculoskeletal: pulses present, edema present Psychiatric: normal affect, A&O x 3 Skin: cap refill <2 seconds Dx/Plan (1) Acute exacerbation of CHF (congestive heart failure) Code(s): I50.9 - HEART FAILURE, UNSPECIFIED Status: Acute (2) Asymptomatic microscopic hematuria Code(s): R31.21 - ASYMPTOMATIC MICROSCOPIC HEMATURIA Status: Acute (3) Venous stasis ulcer Code(s): I83.009 - VARICOSE VEINS OF UNSP LOWER EXTREMITY W ULCER OF UNSP SITE; L97.909 - NON-PRS CHRONIC ULC UNSP PRT OF UNSP LOW LEG W UNSP SEVERITY Status : Acute (4) Coronary artery disease Code(s): I25.10 - ATHSCL HEART DISEASE OF [place] CORONARY ARTERY W/O ANG PCTRS Status: Chronic (5) Diabetes mellitus Code(s): E11.9 - TYPE 2 DIABETES MELLITUS WITHOUT COMPLICATIONS Status: Chronic (6) Heart failure with reduced ejection fraction Code(s): I50.20 - UNSPECIFIED SYSTOLIC (CONGESTIVE) HEART FAILURE Status: Chronic (7) Dyslipidemia Code(s): E78.5 - HYPERLIPIDEMIA, UNSPECIFIED Status: Chronic (8) HTN (hypertension) Code(s): I10 - ESSENTIAL (PRIMARY) HYPERTENSION Status: Chronic Qualifiers: Hypertension type: essential hypertension Qualified Code(s): I10 - Essential (primary) hypertension (9) Morbid obesity with BMI of 40.0-44.9, adult Code(s): E66.01 - MORBID (SEVERE) OBESITY DUE TO EXCESS CALORIES; Z68.41 - BODY MASS INDEX (BMI) 40.0-44.9, ADULT Status: Chronic (10) Non compliance w medication regimen Code(s): Z91.14 - PATIENT'S OTHER NONCOMPLIANCE WITH MEDICATION REGIMEN Status : Chronic - Plan Plan: 61 yo M with pmh of DM, CAD s/p CABG, HLD, HFrEF presenting with SOB likely 2/2 to acute on chronic CHF exacerbation, and venous stasis ulcers, and microscopic hematuria. 1. Acute on chronic HFrEF exacerbation - Lasix 80mg IV in ED - CXR: Pulm vascular congestion and interstitial density may signify interstitial pulmonary edema - Continue Lasix 40mg IV BID - Echo - Fluid restriction 1500L - Weights, strict I&O's 2. Venous stasis ulcers vs. diabetic skin infection - Initial vitals: afebrile, HR 88, BP 117/77 - WBC 7.1 - Wound cx and gram stain Left leg: gram + cocci & rods. Right: Gram + cocci - Consulted wound care - Clindamycin 600mg IV q8hr, plan to transition to PO tomorrow 3. Microscopic hematuria, unknown etiology - Monitor renal function - Repeat UA 4. DM - Was on insulin and metformin at home in the past but has been unable to afford it - SSI, consider starting - Metformin 500mg BID - HbA1c 10.8 - Will consult CM for financial assistance & f/u appts 5. HFrEF 2/2 ischemic cardiomyopathy - Nuclear stress (07/2017), EF of 26%, abnormal LV function and ischemic changes. No reversible changes - Echo 01/2017: EF of 25-30% - At that time patient declined desire for further intervention - Discuss AICD as option 6. CAD s/p CABG - no chest pain at this time Code status: FULL DVT ppx: Lovenox & SCDs GI ppx: None
[2017-12-03] MEDS: Clindamycin/D5W 600 MG in Premix Bag 1 BAG IVPB SCH ×3 (07:57→23:32)
[2017-12-03] MEDS: metFORMIN 500 MG TAB PO SCH ×2 (07:59→17:24)
[2017-12-03] MEDS: Lisinopril 5 MG TAB PO SCH (07:59)
[2017-12-03] MEDS: Enoxaparin Sodium 40 MG/0.4 ML SYRINGE SC SCH (08:00)
[2017-12-03] MEDS: Furosemide 40 MG/4 ML VIAL SLOW IVP SCH ×2 (08:00→20:06)
[2017-12-03 08:27] LABS: Hemoglobin A1c 10.8 % (4.0-6.0)
[2017-12-03 14:56] LABS: Bilirubin Negative (Negative); Blood, Urine Trace (Negative); Clarity CLEAR (Clear); Glucose, Urine (Dipstick) 100 mg/dL (Negative); Leukocyte Negative (Negative); Nitrite Negative (Negative); Protein, Urine (Dipstick) 100 mg/dL (Neg-Trace); Specific Gravity, Urine 1.017 (1.002-1.036); pH, Urine 6.5 (5.0-9.0)
[2017-12-03 14:57] LABS: Bacteria/HPF None Seen HPF (None Seen); Hyaline Casts/LPF 0-3 HYALINE CAST LPF (0-3 Hyaline); RBC/HPF 0-3 HPF (0-3); Squamous Epithelial None Seen HPF (0-3); WBC/HPF 0-3 HPF (0-3)
[2017-12-04 04:46] LABS: #Eosinphils 0.3 thou/uL (0.0-0.7); #Lymphocytes 1.5 thou/uL (1.20-3.40); #Monocytes 0.7 thou/uL (0.11-0.59); #Neutrophils 4.2 thou/uL (1.40-6.50); %Basophils 0.3 % (0.0-1.0); %Lymphocytes 21.9 % (21.0-51.0); %Monocytes 10.7 % (0.0-10.0); %Neutrophils 63.1 % (42.0-75.0); Hemoglobin 13.5 g/dL (14.0-18.0); Mean Corpuscular HGB CONC 32.8 g/dL (32.0-36.0); Mean Corpuscular Hemoglobin 28.5 pg (27.0-31.0); Mean Corpuscular Volume 86.7 fL (78.0-98.0); Mean Platelet Volume 8.5 fL (7.4-10.4); Platelet Count 170 thou/uL (130-400); RBC Distribution Width 15.5 % (11.5-14.5); Red Blood Cell (RBC) Count 4.72 mill/uL (4.70-6.10); White Blood Cell (WBC) Count 6.6 thou/uL (4.8-10.8)
[2017-12-04 04:54] LABS: Anion Gap 10 mmol/L (10-20); BUN (Urea Nitrogen) 21 mg/dL (8.4-25.7); Calc. Creatinine Clearance 184 mL/min (70-130); Calcium 9.2 mg/dL (7.8-10.44); Carbon Dioxide 29 mmol/L (23-31); Chloride 101 mmol/L (98-107); Estimated GFR-MDRD Greater than 90; Glucose 176 mg/dL (80-115); Potassium 4.1 mmol/L (3.5-5.1); Sodium 136 mmol/L (136-145)
--- NOTE | 2017-12-04 05:01 | PDOC.FM ---
- Subjective Subjective: 61 yo M with pmh of DM, CAD s/p CABG, HLD, HFrEF presenting with SOB likely 2/2 to acute on chronic CHF exacerbation, and venous stasis ulcers, and microscopic hematuria. Patient denied SOB, chest pain, DENNY. No concerns at this time. - Objective MAR Reviewed: Yes Vital Signs & Weight: Vital Signs (12 hours) Temp Pulse Resp BP Pulse Ox 12/04/17 04:33 97.8 F 81 20 115/76 94 L 12/04/17 00:06 93 L 12/03/17 23:42 98.1 F 86 20 122/82 93 L 12/03/17 20:00 98.0 F 87 18 92 L 12/03/17 19:37 98.0 F 87 18 124/82 92 L Weight Admit Weight 131.088 kg Weight 128.956 kg I&O: 12/02/17 12/03/17 12/04/17 06:59 06:59 06:59 Intake Total 1370 850 Output Total 2300 1850 Balance -930 -1000 Result Diagrams: 12/04/17 04:18 12/04/17 04:18 Phys Exam - Physical Examination Constitutional: NAD Respiratory: no wheezing, clear to auscultation bilateral Cardiovascular: RRR Gastrointestinal: soft, non-tender, positive bowel sounds Musculoskeletal: pulses present, edema present wounds covered Neurological: moves all 4 limbs Psychiatric: normal affect, A&O x 3 Skin: cap refill <2 seconds Dx/Plan (1) Acute exacerbation of CHF (congestive heart failure) Code(s): I50.9 - HEART FAILURE, UNSPECIFIED Status: Acute (2) Asymptomatic microscopic hematuria Code(s): R31.21 - ASYMPTOMATIC MICROSCOPIC HEMATURIA Status: Acute (3) Venous stasis ulcer Code(s): I83.009 - VARICOSE VEINS OF UNSP LOWER EXTREMITY W ULCER OF UNSP SITE; L97.909 - NON-PRS CHRONIC ULC UNSP PRT OF UNSP LOW LEG W UNSP SEVERITY Status : Acute (4) Coronary artery disease Code(s): I25.10 - ATHSCL HEART DISEASE OF [place] CORONARY ARTERY W/O ANG PCTRS Status: Chronic (5) Diabetes mellitus Code(s): E11.9 - TYPE 2 DIABETES MELLITUS WITHOUT COMPLICATIONS Status: Chronic (6) Heart failure with reduced ejection fraction Code(s): I50.20 - UNSPECIFIED SYSTOLIC (CONGESTIVE) HEART FAILURE Status: Chronic (7) Dyslipidemia Code(s): E78.5 - HYPERLIPIDEMIA, UNSPECIFIED Status: Chronic (8) HTN (hypertension) Code(s): I10 - ESSENTIAL (PRIMARY) HYPERTENSION Status: Chronic Qualifiers: Hypertension type: essential hypertension Qualified Code(s): I10 - Essential (primary) hypertension (9) Morbid obesity with BMI of 40.0-44.9, adult Code(s): E66.01 - MORBID (SEVERE) OBESITY DUE TO EXCESS CALORIES; Z68.41 - BODY MASS INDEX (BMI) 40.0-44.9, ADULT Status: Chronic (10) Non compliance w medication regimen Code(s): Z91.14 - PATIENT'S OTHER NONCOMPLIANCE WITH MEDICATION REGIMEN Status : Chronic - Plan Plan: 61 yo M with pmh of DM, CAD s/p CABG, HLD, HFrEF presenting with SOB likely 2/2 to acute on chronic CHF exacerbation, and venous stasis ulcers, and microscopic hematuria. 1. Acute on chronic HFrEF exacerbation - CXR: Pulm vascular congestion and interstitial density may signify interstitial pulmonary edema - Transitioned to Lasix 40mg PO BID - Echo pending - Fluid restriction 1500L - Weights, strict I&O's - CM spoke with patient about f/u at [facility] for F/u and medication acquisition - CM also spoke with pt about need for cardiac rehab 2. Venous stasis ulcers vs. diabetic skin infection - Initial vitals: afebrile, HR 88, BP 117/77 - WBC 7.1 - Wound cx and gram stain Left leg: gram + cocci & rods. Right: Gram + cocci. Both MRSA sensitive to Clinda - Consulted wound care - Transitioned to PO Clindamycin 300mg q6h 3. Microscopic hematuria, unknown etiology - Monitor renal function - Repeat UA showed 0-3 RBC's, previously 7-10 4. DM - Was on insulin and metformin at home in the past but has been unable to afford it - SSI, consider starting - Metformin 500mg BID - HbA1c 10.8 - CM spoke with patient about f/u at [facility] 5. HFrEF 2/2 ischemic cardiomyopathy - Nuclear stress (07/2017), EF of 26%, abnormal LV function and ischemic changes. No reversible changes - Echo 01/2017: EF of 25-30% - Patient declined AICD as option 6. CAD s/p CABG - no chest pain at this time Code status: FULL DVT ppx: Lovenox & SCDs GI ppx: None
[2017-12-04] MEDS: HumaLOG 300 UNITS/3 ML VIAL SC PRN ×2 (05:16→12:23)
[2017-12-04] MEDS: Clindamycin 150 MG CAP PO SCH ×2 (06:16→12:22)
[2017-12-04] MEDS: Furosemide 20 MG TAB PO SCH ×2 (07:57→12:50)
[2017-12-04] MEDS: metFORMIN 500 MG TAB PO SCH (07:57)
[2017-12-04] MEDS: Enoxaparin Sodium 40 MG/0.4 ML SYRINGE SC SCH (07:58)
[2017-12-04] MEDS: Lisinopril 5 MG TAB PO SCH (07:59)
[2017-12-04 12:27] VITALS: BP 118/78; TEMP 98.7
--- NOTE | 2017-12-04 17:19 | DIS-2 ---
DATE OF ADMISSION: 12/02/2017 DATE OF DISCHARGE: 12/04/2017 RESIDENT: Yoanna Arrieta, PGY1. ADMITTING ATTENDING: Erlin De Los Santos MD DISCHARGE ATTENDING: Carlyle Soliman M.D. CONSULTATIONS: Wound Care. PROCEDURES: 1. Echo: 25-30% EF, Restrictive filling pattern, LV increased, mildly enlarged RV. LV mild/mod dilated. Mild MR. Mild pulmonic regurg PRIMARY DIAGNOSES: 1. Acute on chronic congestive heart failure exacerbation with reduced ejection fraction. 2. Venous stasis ulcers with infection. 3. Microscopic hematuria. SECONDARY DIAGNOSES: 1. Type 2 insulin-dependent diabetes. 2. Heart failure with reduced ejection fraction secondary to ischemic cardiomyopathy. 3. CAD s/p coronary artery bypass graft. DISCHARGE MEDICATIONS: 1. Clindamycin 300 mg q.6 hours for 10 days. 2. Lasix 40 mg daily for 7 days. 3. Lisinopril 5 mg daily. 4. Metformin 500 mg b.i.d. HISTORY OF PRESENT ILLNESS AND HOSPITAL COURSE: A 61-year-old male with past medical history of CHF, CAD, type 2 diabetes who presents with leg swelling and chest pressure for the past 2 weeks. He also noted bilateral ulcers that grew MRSA sensitive to clindamycin. He was started on clindamycin IV and transitioned to p.o. prior to discharge once cultures resulted. For his acute on chronic CHF exacerbation, he received Lasix 40 IV b.i.d. Symptoms improved. Case management talked with him about followup options at [facility] for medication acquisition. He has a long history of medication noncompliance due to no insurance. He needs cardiac rehab post-discharge. AICD was discussed with patient as an option for his low EF, he declined at this time. Insulin-dependent diabetes. His hemoglobin A1c was 10.8. As a result of his inability to acquire insulin at home, we started sliding scale insulin and spoke with case management about a followup. DISPOSITION: Stable. DISCHARGE INSTRUCTIONS: 1. Location: Home. 2. Diet: Heart healthy, low sodium, diabetic diet. 3. Activity: No restrictions. 4. Follow up with [facility] and cardiac rehabilitation within 1 week of discharge. [facility]Joe
--- NOTE | 2017-12-04 20:52 | ADD-PRG ---
ADDENDUM: DATE OF SERVICE: 12/03/2017 Please see the note from Dr. Yoanna Arrieta for which I concur. The patient was seen and evaluated, e [email or web address], and discussed with the residents. This gentleman came in with some edema, chronic venous insufficiency, and some leg ulcers and decreas ed ejection fraction, CHF, systolic CHF exacerbation, but even overnight, his lungs were a lot better , not like that short of breath, has trace edema, and leg wounds look like chronic stasis ulcers. Pl an is to continue at least another day of IV fluids, better sugar control, and IV antibiotics of clin damycin, but hopefully we will be able to switch over to p.o. antibiotics, probably he will be discha rged tomorrow as long as thing continue to improve.
--- NOTE | 2017-12-04 21:00 | ADD-PRG ---
Please see the note from Dr. Yoanna Arrieta for which I concur. The patient was seen and evaluated, sapphire lopez and discussed with the Residents. HISTORY OF PRESENT ILLNESS: This is a 61-year-old male who is here for mild CHF exacerbation with kn own decrease in ejection fraction and systolic congestive heart failure and also has MRSA growing fro m some chronic venous insufficiency, stasis ulcers, but symptom moses, he is doing great. He can be s witched over to p.o. clindamycin. He is on a good dose of Lasix that can be controlled with p.o. and does not want to consider an AICD, so no reason to get Cardiology involved and will be discharged an d followed up as an outpatient. Back on diabetes pills as well.
== END 2017-12-04 13:16 | disposition home or self-care (01) | DRG 292 ==
LOC: ERS 20:52 → ERHOLD 12-02 02:32 → T4-A 12-02 05:11
PROVIDERS: ADMIT Student in an Organized Health Care Education/Training Program; ATTEND Student in an Organized Health Care Education/Training Program
DX: I11.0 Hypertensive heart disease with heart failure (principal); Z68.42 Body mass index [BMI] 45.0-49.9, adult; L03.119 Cellulitis of unspecified part of limb; I50.23 Acute on chronic systolic (congestive) heart failure; I83.009 Varicose veins of unspecified lower extremity with ulcer of unspecified site; R31.29 Other microscopic hematuria; E11.622 Type 2 diabetes mellitus with other skin ulcer; Z79.4 Long term (current) use of insulin; I25.10 Atherosclerotic heart disease of native coronary artery without angina pectoris; Z95.1 Presence of aortocoronary bypass graft; I25.5 Ischemic cardiomyopathy; E78.00 Pure hypercholesterolemia, unspecified; E78.5 Hyperlipidemia, unspecified; Z91.14 Patient's other noncompliance with medication regimen; E66.01 Morbid (severe) obesity due to excess calories; B95.62 Methicillin resistant Staphylococcus aureus infection as the cause of diseases classified elsewhere
CPT/HCPCS: 36415; 36416; 71045; 80048; 80053; 80306; 81001; 81003; 81015; 82553; 83036; 83880; 84484; 85025; 87070; 87077; 87186; 87205; 93005; 93306; 94760; 96365; 96375; J1650; J1940; J3490

== ENCOUNTER 2017-12-20 16:46 | Inpatient (IN) | payer MEDICARE ==
[2017-12-20 17:38] LABS: #Eosinphils 0.1 thou/uL (0.0-0.7); #Lymphocytes 0.9 thou/uL (1.20-3.40); #Monocytes 0.7 thou/uL (0.11-0.59); #Neutrophils 5.7 thou/uL (1.40-6.50); %Basophils 0.1 % (0.0-1.0); %Eosinophils 1.5 % (0.0-10.0); %Lymphocytes 11.7 % (21.0-51.0); %Monocytes 9.3 % (0.0-10.0); %Neutrophils 77.4 % (42.0-75.0); Hemoglobin 13.3 g/dL (14.0-18.0); Mean Corpuscular HGB CONC 33.5 g/dL (32.0-36.0); Mean Corpuscular Hemoglobin 29.4 pg (27.0-31.0); Mean Corpuscular Volume 87.7 fL (78.0-98.0); Mean Platelet Volume 8.6 fL (7.4-10.4); Platelet Count 150 thou/uL (130-400); RBC Distribution Width 15.2 % (11.5-14.5); Red Blood Cell (RBC) Count 4.52 mill/uL (4.70-6.10); White Blood Cell (WBC) Count 7.3 thou/uL (4.8-10.8)
[2017-12-20 18:02] LABS: ALT (SGPT) 14 U/L (8-55); AST (SGOT) 19 U/L (5-34); Albumin 3.2 g/dL (3.4-4.8); Alkaline Phosphatase 93 U/L (40-150); Anion Gap 18 mmol/L (10-20); BUN (Urea Nitrogen) 23 mg/dL (8.4-25.7); Bilirubin, Total 0.7 mg/dL (0.2-1.2); CK (CPK) 39 U/L (30-200); CKMB 0.9 ng/mL (0-6.6); Calc. Creatinine Clearance 0 mL/min (70-130); Calcium 9.1 mg/dL (7.8-10.44); Carbon Dioxide 18 mmol/L (23-31); Chloride 100 mmol/L (98-107); Estimated GFR-MDRD 78; Globulin 3.9 g/dL (2.4-3.5); Glucose 292 mg/dL (80-115); Potassium 3.6 mmol/L (3.5-5.1); Protein, Total 7.1 g/dL (5.8-8.1); Sodium 132 mmol/L (136-145)
--- NOTE | 2017-12-20 18:09 | RAD ---
PORTABLE CHEST 1 VIEW: Date: 12/20/17 Time: 1728 hours HISTORY: Chest pain, edema bilateral lower legs. FINDINGS/IMPRESSION: Comparison made with exam of 12/01/17. There are changes of median sternotomy. The heart is enlarged. There is pulmonary vascular congestion . No pneumothoraces, lobar consolidation, or large effusions are seen. Findings are suspicious for CH F. POS: [facility]
[2017-12-20 18:19] LABS: Troponin I Less than 0.010 ng/mL (< 0.028)
[2017-12-20] MEDS ORDERED: Furosemide 40 MG/4 ML VIAL ONE ×2 (20:05→20:12)
[2017-12-20] MEDS ORDERED: Nitroglycerin 0.4 MG TAB (25 Tab Bottle) ONE (20:05)
[2017-12-20] MEDS ORDERED: Acetaminophen 325 MG TAB PO PRN ×2 (20:21→21:47)
[2017-12-20] MEDS ORDERED: Dextrose 5% in Water 1,000 ML IV PRN (20:21)
[2017-12-20] MEDS ORDERED: Dextrose 50% Abboject 50 ML SYRINGE SLOW IVP PRN (20:21)
[2017-12-20] MEDS ORDERED: Ondansetron HCl/PF 4 MG/2 ML Vial IVP PRN ×2 (20:21→21:47)
[2017-12-20] MEDS ORDERED: HumaLOG 300 UNITS/3 ML VIAL SC PRN (20:21)
[2017-12-20] MEDS ORDERED: Heparin 5,000 UNITS/ML VIAL SC SCH (21:00)
[2017-12-20 21:21] LABS: Troponin I Less than 0.010 ng/mL (< 0.028)
[2017-12-20] MEDS ORDERED: Ondansetron ODT 4 MG TAB SL PRN (21:47)
--- NOTE | 2017-12-20 23:10 | PDOC.FPROB ---
FMR OB H&P: Medications - Current Home Medications: Medication Instructions Recorded Confirmed Type Metoprolol Succinate [Toprol XL] 25 mg PO DAILY 07/27/17 12/02/17 History Clindamycin [Cleocin] 300 mg PO Q6HR 10 Days #40 cap 12/04/17 Rx Furosemide [Lasix] 40 mg PO 0900,1400 30 Days #60 tab 12/04/17 Rx Furosemide [Lasix] 40 mg PO DAILY 7 Days #7 tab 12/04/17 Rx Lisinopril [Zestril] 5 mg PO DAILY tab 12/04/17 Rx metFORMIN [Glucophage] 500 mg PO BID-WM 30 Days #60 tab 12/04/17 Rx Allergies/Adverse Reactions: Allergies Allergy/AdvReac Type Severity Reaction Status Date / Time No Known Drug Allergies Allergy Unknown Verified 12/02/17 05:27 FMR OB H&P: A/P Discussion: Date/Time: 12/20/17 1690 This H&P was discussed with [] and [] who agree with the above documentation and plan.
[2017-12-20 23:16] VITALS: BMI 47.0
[2017-12-21 00:06] LABS: Troponin I 0.015 ng/mL (< 0.028)
--- NOTE | 2017-12-21 00:15 | PDOC.FPRHP ---
- History of Present Illness Chief Complaint: CP History of Present Illness: Pt 62 M with PMH of CABG, CHF, HTN, CAD, DM, and recent admission for cellulitis who presented to ED for chest pain and LE swelling (L>R). CP began last night while he was in his recliner, substernal pain described as pressure, 10/10 pain. He got up and started walking, and pain subsided when he sat down. The pain has not gone away since it began, but waxes and wanes. He states it increases with activity and decreases with rest. He has had associated symptom of nausea, SOB, and dyspnea on exertion. His legs have been slightly swollen since discharge, but he also stated that his left leg started swelling even more 2 days ago. He denies fevers, DENNY, weakness, or numbness. He had a stress test in July which showed a minimal reversible defect. In the ED, he received aspirin and lasix. - Allergies/Adverse Reactions Allergies Allergy/AdvReac Type Severity Reaction Status Date / Time No Known Drug Allergies Allergy Unknown Verified 12/21/17 02:54 - Home Medications Medication Instructions Recorded Confirmed Type Metoprolol Succinate [Toprol XL] 25 mg PO DAILY 07/27/17 12/20/17 History Furosemide [Lasix] 40 mg PO 0900,1400 30 Days #60 tab 12/04/17 12/20/17 Rx - History PMHx: CHF, HTN, CAD, DM, noncompliance, Stress test in July which showed a minimal reversible defect PSHx: CABG, Rt shoulder surgery FHx: Denies fam hx of cancer Social: Denies using tobacco product, drinks 2-3 beers per week, denies using illicit drugs - Review of Systems General: denies: fever/chills, night sweats, fatigue Eyes: reports: vision changes (occasional blurry vision). denies: eye pain ENT: reports: rhinorrhea Respiratory: reports: cough (occasional), congestion, shortness of breath, exercise intolerance Cardiovascular: reports: chest pain, edema, orthopnea Gastrointestinal: reports: nausea. denies: vomiting, diarrhea, constipation, abdominal pain, GI bleeding Genitourinary: denies: incontinence, dysuria, polyuria, discharge Skin: denies: rashes, itching Musculoskeletal: reports: pain (bilateral lower legs), swelling Neurological: denies: numbness, weakness Psychological: denies: anxiety, depression - Vital signs BP 121/68, P 85, R 94, Tmax 98.1, O2 96% on RA, Wt 132 kg - Physical Exam Constitutional: NAD, awake, alert and oriented HEENT: normocephalic and atraumatic, PERRLA, no scleral icterus Neck: supple, no LAD Heart: RRR, normal S1/S2, no murmurs/rubs/gallops, pulses present Lungs: CTAB, no respiratory distress, good air movement, no rales/rhonchi, no wheezing, other (pitting edema 3+ in bilateral lower extremities) Abdomen: soft, non-tender, bowel sounds present, no masses/distention Musculoskeletal: normal structure, normal tone, ROM grossly normal Skin: good turgor, capillary refill <2 seconds, other (bilateral lower venous stasis, with scabbing, erythema) Psychiatric: normal mood and affect FMR H&P: Results - Labs Result Diagrams: 12/20/17 17:29 12/20/17 17:29 Lab results: WBC 7.3 thou/uL (4.8-10.8) 12/20/17 17:29 Hgb 13.3 g/dL (14.0-18.0) L 12/20/17 17:29 Hct 39.7 % (42.0-52.0) L 12/20/17 17:29 MCV 87.7 fL (78.0-98.0) 12/20/17 17:29 Plt Count 150 thou/uL (130-400) 12/20/17 17:29 Neutrophils % 77.4 % (42.0-75.0) H 12/20/17 17:29 Sodium 132 mmol/L (136-145) L 12/20/17 17:29 Potassium 3.6 mmol/L (3.5-5.1) 12/20/17 17:29 Chloride 100 mmol/L (98-107) 12/20/17 17:29 Carbon Dioxide 18 mmol/L (23-31) L 12/20/17 17:29 BUN 23 mg/dL (8.4-25.7) 12/20/17 17:29 Creatinine 0.97 mg/dL (0.6-1.3) 12/20/17 17:29 Glucose 292 mg/dL (80-115) H 12/20/17 17:29 Calcium 9.1 mg/dL (7.8-10.44) 12/20/17 17:29 Total Bilirubin 0.7 mg/dL (0.2-1.2) 12/20/17 17:29 AST 19 U/L (5-34) 12/20/17 17:29 ALT 14 U/L (8-55) 12/20/17 17:29 Alkaline Phosphatase 93 U/L (40-150) 12/20/17 17:29 Creatine Kinase 39 U/L (30-200) 12/20/17 17:29 CK-MB (CK-2) 0.9 ng/mL (0-6.6) 12/20/17 17:29 Serum Total Protein 7.1 g/dL (5.8-8.1) 12/20/17 17:29 Albumin 3.2 g/dL (3.4-4.8) L 12/20/17 17:29 - EKG Interpretation EKG: ST abnormalities - Radiology Interpretation Chest x-ray Status: report reviewed by me (CXR shows: pulmonary vascular congestion, suspicious for CHF. Changes of median sternotomy, heart enlarged, no effusions.) FMR H&P: A/P - Problem List (1) Acute exacerbation of CHF (congestive heart failure) Current Visit: No Status: Acute Code(s): I50.9 - HEART FAILURE, UNSPECIFIED (2) Hyponatremia Current Visit: No Status: Acute Code(s): E87.1 - HYPO-OSMOLALITY AND HYPONATREMIA (3) Coronary artery disease Current Visit: No Status: Chronic Code(s): I25.10 - ATHSCL HEART DISEASE OF [place] CORONARY ARTERY W/O ANG PCTRS (4) DM (diabetes mellitus), type 2, uncontrolled Current Visit: No Status: Chronic Code(s): E11.65 - TYPE 2 DIABETES MELLITUS WITH HYPERGLYCEMIA Qualifiers: Diabetes mellitus continuous churn buttermaker insulin use: without [place] use Diabetes mellitus complication status: with hyperglycemia Qualified Code(s): E11.65 - Type 2 diabetes mellitus with hyperglycemia Comment: Continue accuchecks, insulin sliding scale (5) Dyslipidemia Current Visit: No Status: Chronic Code(s): E78.5 - HYPERLIPIDEMIA, UNSPECIFIED (6) HTN (hypertension) Current Visit: No Status: Chronic Code(s): I10 - ESSENTIAL (PRIMARY) HYPERTENSION Qualifiers: Hypertension type: essential hypertension Qualified Code(s): I10 - Essential (primary) hypertension Comment: Monitor vital signs, titrate antihypertensives as needed (7) Morbid obesity with BMI of 45.0-49.9, adult Current Visit: No Status: Chronic Code(s): E66.01 - MORBID (SEVERE) OBESITY DUE TO EXCESS CALORIES; Z68.42 - BODY MASS INDEX (BMI) 45.0-49.9, ADULT (8) Chest pain Current Visit: Yes Status: Acute Code(s): R07.9 - CHEST PAIN, UNSPECIFIED - Plan 62 yo M with PMH of CABG, HTN, DM, CAD with typical chest pain and CHF exacerbation. Typical Chest Pain -Substernal pressure, worse with exertion, improves with rest. Hx of CABG. Heart score of 6, placing at moderate risk of adverse cardiac event. Pt admitted to tele obs. -Cardiac enzymes ordered, trop neg x2, CKMB of .9, EKG showed nonspecific ST changes. -81 mg aspirin, nitro PRN, atorvastatin -Stress test ordered for the AM -CXR showed pulmonary vascular congestion Acute CHF Exacerbation -CXR showing pulmonary vascular congestion, appears to be fluid overloaded. - Recent echo shows EF 25-30%, mild to mod LV dilation, Mild increased RV, mild MR, mild pulm regurge - BNP ordered - IV Lasix 40 mg BID Bilateral Lower Extremity Edema, L>R; chronic venous stasis with concern for DVT vs cellulitis vs charcot foot -Bilateral venous stasis, recent admission for cellulitis -Concern for DVT: bilateral LE Doppler ordered -Concern for Charcot: bilat weight-bearing foot XR ordered -blood cultures pending, procalcitonin pending T2DM -glucose 292 on admission - restarted home metformin - started sliding scale insulin Hyponatremia -Na 132 on admission, will continue to monitor Hypoalbuminemia -alb 3.2 on admission, will continue to monitor HTN -restarted home lisinopril 5 mg CAD -started on atorvastatin 40 Nausea -zofran PRN Code status: full code Marleny Holland, PGY-1 FMR H&P: Upper Level - Pertinent history 62M presents for chest pain and LLE swelling. Chest pain started today, lasting over an hour, waxes and wane but was constant, substernal 9/10, pressure like, worst with deep breathing and walking, relieved by rest and drinking water. Associated with dyspnea on exertion. He had previous history of CHF, CABG, DM2, HLD, former tobacco abuser. As for leg swelling, he states it has gone on since his discharge for cellulitis. He was on clindamycin for cellulitis, MRSA sensitive to clindamycin. His leg swelling worsen 2 days ago. PMhx: CAD, DM, CHF, cellulitis 3 weeks ago Pshx: s/p CABG Fhx: Mother and father of [place] Allergies: NKDA Medication: Lasix 40 mg, Lisinopril 5 mg, Metformin 500 mg BID Social: Socially drink, uses tobacco - Pertinent findings Vitals: Temp 98.8 F , Pulse 99, Resp 20, 97% on RA, BP 127/72 Gen: Obese, NAD HEENT: Normocephalic, moist mucosal membrane CV: RRR with no apparent m/g/r Resp: Diminished air sounds, no obvious crackles GI Normoactive, not tender to palpation, Ext: Brawny edema present. Left leg larger then right. Mildly erythematous throughout, but cool to touch. Tender to palpation. 2+ pitting edema to arechiga. There are crusted over sores with no discharge Neuro: No focal deficit, Psych: Grossly alert and oriented. Fixated on his insurance card - Plan Date/Time: 12/21/17 0012 Izabela, [Eh Fall], have evaluated this patient and agree with findings/plan as outlined by safety intern resident. Pertinent changes/additions are listed here. 1. - Chest pain: Rule out ACS, stress test, trend trops. Trop negative x 2. Start atorvastatin . - Consider CHF. Start lasix. Fluid restriction 1800. - Doubt PE at this time as patient's O2 saturation is good, not tachypneic, not having cough 2. Swollen leg, rule out DVT with doppler. Get weight bearing xray for charcot foot. Doubt infectious cause at this time. Normal WBC, no warmth and swelling continued after treatment with appropriate abx. Will obtain procalcitonin. 3. DM2: SSI and resume home medication. 4. HF with EF at 25-30%: Will obtain BNP. Fluid restriction of 1800 ml. Start Lasix 40 IV BID. Continue with current home med for CHF 5. HTN, start home Lisinopril.
[2017-12-21] MEDS ORDERED: Calcium Carbonate 500 MG ChewTAB PO PRN (00:21)
[2017-12-21] MEDS ORDERED: Nitroglycerin 0.4 MG TAB (25 Tab Bottle) PO PRN (00:21)
[2017-12-21] MEDS ORDERED: Enoxaparin Sodium 40 MG/0.4 ML SYRINGE SC SCH (00:30)
[2017-12-21] MEDS ORDERED: Dextrose 50% Abboject 50 ML SYRINGE SLOW IVP PRN (03:43)
[2017-12-21] MEDS ORDERED: Dextrose 5% in Water 1,000 ML IV PRN (03:43)
[2017-12-21] MEDS: Furosemide 40 MG/4 ML VIAL SLOW IVP SCH ×2 (05:16→14:21)
[2017-12-21] MEDS ORDERED: Furosemide 40 MG/4 ML VIAL SLOW IVP SCH ×2 (06:00)
[2017-12-21 06:51] LABS: Anion Gap 14 mmol/L (10-20); BUN (Urea Nitrogen) 19 mg/dL (8.4-25.7); Calc. Creatinine Clearance 179 mL/min (70-130); Calcium 8.8 mg/dL (7.8-10.44); Carbon Dioxide 22 mmol/L (23-31); Chloride 102 mmol/L (98-107); Estimated GFR-MDRD Greater than 90; Glucose 234 mg/dL (80-115); Potassium 3.4 mmol/L (3.5-5.1); Sodium 135 mmol/L (136-145)
[2017-12-21 07:44] LABS: Hemoglobin A1c 10.5 % (4.0-6.0)
[2017-12-21] MEDS: metFORMIN 500 MG TAB PO SCH ×2 (08:48→17:28)
[2017-12-21] MEDS: Lisinopril 5 MG TAB PO SCH (08:48)
[2017-12-21] MEDS: Aspirin 81 mg Enteric Coated Tablet PO SCH (08:48)
[2017-12-21] MEDS ORDERED: Lisinopril 5 MG TAB PO SCH (09:00)
--- NOTE | 2017-12-21 09:30 | PDOC.EVN ---
Event Note - Event Note Event Note: I talked with Dr. George and she recommended not performing a stress test at this time with his history of a stress test in July and his echo done in October.
--- NOTE | 2017-12-21 10:35 | ULT ---
BILATERAL LOWER EXTREMITY VENOUS DUPLEX EXAM: History: Leg pain and swelling. FINDINGS: Exam is technically limited due to body habitus. Real-time color doppler evaluation of the right and left lower extremities were performed from groin to calf to include the common femoral, superficial, and profunda femoral, saphenous, popliteal, and t rifurcation veins. This shows patent deep venous systems bilaterally. There is normal compressibility and augmentation. There is no evidence of DVT. IMPRESSION: No evidence of DVT of either lower extremity. POS: [facility]
--- NOTE | 2017-12-21 10:38 | RAD ---
RIGHT FOOT THREE VIEWS: History: 62-year-old male with history of right foot pain. Concern for Charcot joint. FINDINGS: Exam done with weightbearing. There are degenerative changes of the foot. There are prominent calcaneal plantar enthesophytes. No f racture or dislocation. Generalized soft tissue fullness. No significant arthrosis changes. No signif icant plain film evidence for a Charcot joint. IMPRESSION: Soft tissue swelling with generalized degenerative changes. Calcaneal plantar enthesophyte. POS: [facility]
--- NOTE | 2017-12-21 12:48 | ADD-PRG ---
DATE OF SERVICE: 12/21/2017 I have discussed the case with Dr. Marleny Holland and agree with her assessment and plan. I examined the patient. Briefly, Mr. Fu is a 62-year-old patient with a history of coronary artery disease, heart fail ure, hypertension, and type 2 diabetes. He presented with increased shortness of breath and chest di scomfort. He previously had a normal stress echo test approximately 2 months ago. PHYSICAL EXAMINATION: VITAL SIGNS: His blood pressure is 120/60, his pulse rate is 90, respirations are 16. He is afebril e and has a room air pulse ox of 96%. GENERAL: This is a pleasant man in no distress, quite obese. ENT: No erythema or exudate. CARDIAC: The PMI is slightly displaced laterally. S4 gallop. No murmur or rub noted. LUNGS: Clear, but diminished. No respiratory distress. ABDOMEN: Obese, flat, soft. EXTREMITIES: 2+ pitting edema in the lower extremities. NEUROLOGICALLY: No focal deficits. LABORATORY DATA: CBC: White count 7300, hemoglobin 13.3, hematocrit 39.7 with an MCV of 87. Chemis tries: Sodium is 135, potassium 3.4, chloride 102, bicarbonate 22, BUN 19, creatinine 0.8. His A1c is 10.5. Chest x-ray shows cardiomegaly, pulmonary vascular congestion consistent with his heart failure. ASSESSMENT: Exacerbation of heart failure. PLAN: Admit, adjust meds and proceed.
[2017-12-21] MEDS: HumaLOG 300 UNITS/3 ML VIAL SC PRN (13:02)
--- NOTE | 2017-12-21 15:01 | CON ---
DATE OF CONSULTATION: 12/21/2017 CARDIOLOGY CONSULTATION INDICATION FOR CONSULTATION: This is a 62-year-old gentleman with CHF exacerbation. HISTORY OF PRESENT ILLNESS: This is a very unfortunate, but pleasant 62-year-old gentleman who has h ad a long history of cardiac problems. He underwent bypass surgery in the past. He has had a histor y of congestive heart failure, both systolic and may be diastolic. He has not been compliant with fo llowups or taking his medications. He recently within the last few days notes he had increased foot swelling in his lower extremities and also some erythema. He then actually had an episode of some ch est tightness, which he said he felt like he was nauseated, but whether or not this is cardiac or whe ther it was just nausea is unclear. He is very uncertain about his history and is a very poor histor waldemar. He did not have any vomiting. He presented to the emergency room and cardiac enzymes are negat cindy. He recently had a stress test not too long ago, which was unremarkable for any evidence of isch emia. He does have a history of significant cardiomyopathy, ejection fraction has been as low as 10% -15%. The last echocardiogram showed an improvement in his ejection fraction back in 12/03, showed e jection fraction of 25%-30%. He did have a restrictive type filling pattern and he does have evidenc e of diastolic dysfunction with a restrictive type pattern. He also had evidence of some mild right ventricular dilatation at that time. The left atrium was mildly to moderately dilated. He had mild mitral and tricuspid valve regurgitation. He has been advised in the past to undergo an AICD implant , but has failed to do so. He also has failed to follow up in the office and has not been taking his medicines appropriately. At this time, he denies any chest pain. He has no nausea and was still co ncerned about the lower extremity edema. PAST MEDICAL HISTORY: Significant for coronary artery bypass grafting. This was performed, I believ e, in [place]. He has had a history of congestive heart failure with severe decrease in left ventricular systolic function. Most recent echocardiogram showed an ejection of about 30%. He has a history of diabetes. He has obesity. ALLERGIES: He has no known drug allergies. MEDICATIONS: He is supposed to be taking at least at home, he said he was taking metoprolol and furo semide. REVIEW OF SYSTEMS: He complains of no new HEENT complaints. He does not complain of any coughing or pulmonary problems. He had some mild nausea earlier yesterday on admission, but nothing recently. No diarrhea, no vomiting. He had no complaints. Musculoskeletal, he mainly complains of lower ex tremity edema. Normally, he is able to walk without difficulties except for the edema. FAMILY HISTORY: Noncontributory. SOCIAL HISTORY: He continues to smoke occasional cigarettes. He has no significant alcohol use, onl y very rarely. His most recent Cardiolite study was in July of this year. This showed, I believe, no evidence of significant ischemia. There was scarring evident within the anterior left ventricular wall and also at the apex. There was a suggestion of minimal reversible defect involving the distal inferior wall, which is felt to be possibly due to lise-infarct ischemia, but otherwise, there was n o significant reversible defects noted. The ejection fraction by nuclear study was 26%. PHYSICAL EXAMINATION: GENERAL: Reveals a morbidly obese gentleman who is in no acute distress. He is alert and oriented a t this time. VITAL SIGNS: His blood pressure is 111/61, heart rate is 77 and is regular, respiratory rate is 22, O2 saturation 93%. His temperature was 99.2. HEENT: Showed the head to be normocephalic and atraumatic. Carotid pulses are present. I did not h ear any significant bruits. There is no JVD. CHEST: Clear to auscultation without rales, rhonchi or wheezing. CARDIOVASCULAR: Exam revealed a regular rate and rhythm. There is a normal S1, S2. I cannot hear a n S3 nor an S4. There were no significant murmurs, heaves, thrills, bruits or rubs. He has a well-h ealed midline surgical incision after median sternotomy. ABDOMEN: Shows morbid obesity. Positive bowel sounds are present. No tenderness. EXTREMITIES: Showed no clubbing or cyanosis. He did have some mild erythema, more so in the left lo wer extremity than the right. He does have 2+ lower extremity edema from the knees down to the feet. I cannot palpate pedal pulses, nor could I palpate popliteal pulses in this gentleman. NEUROLOGIC: He appears to be intact without any gross focal motor deficits. SKIN: Actually warm and dry. IMAGING: His EKG shows a normal sinus rhythm with no acute changes. He did have an isolated PVC not ed. He has some nonspecific changes in the lateral leads with T-wave inversions in 1 and aVL. There were no ST segment elevations. LABORATORY DATA: Shows no acute cardiac enzymes. They are negative actually. His hemoglobin was 13 .3, creatinine 0.8 and potassium is 3.4. The BNP was 702. Sodium was 135. IMPRESSION: 1. Congestive heart failure exacerbation due to both mostly systolic and likely diastolic dysfunctio n with a previous history of myocardial infarctions and bypass surgery. I suspect he has been noncom pliant with medications as well as volume intake. He will need to be diuresed and hopefully his lowe r extremity edema will improve. He has been in the hospital on previous admissions for similar probl ems. He has been advised in the past to undergo an AICD implant or at least discussion and he has fa iled to do so. He has also failed to return to the office for followups. 2. Lower extremity edema with mild cellulitis involving the left lower extremity. He also has edema noted in the right lower extremity, most likely associated with his congestive heart failure and vol ume overload. 3. Hypertension. Blood pressure is under good control at this time. 4. Evidence of diabetes or elevated blood sugar. He has been placed on insulin sliding scale, I bel ieve. 5. History of coronary artery disease and bypass surgery in the past. This does appear to be stable . He had a recent stress test, which did not show any acute reversible changes. He did have the one episode of some chest discomfort, but it is unclear whether or not this is due to his nausea and gas trointestinal. He does indicate that this is in the lower retrosternal area or in the epigastric are a, somewhat atypical for chest discomfort or for coronary artery disease. At this time, I would cont inue diuresing him. I will encourage him to follow up in the office with Dr. Madera as an outpatie nt. Would also try to encourage him to revisit the possibility of an AICD in this gentleman with a s evere decrease in left ventricular systolic function; however, if he is going to be noncompliant, the n he may not be a reasonable candidate to undergo the procedure. We will continue to follow the venita ent with you throughout the hospital course and most likely Dr. Madera will resume his care when he sees him tomorrow.
[2017-12-21] MEDS: Enoxaparin Sodium 40 MG/0.4 ML SYRINGE SC SCH (21:16)
[2017-12-21] MEDS: Atorvastatin Calcium 40 MG TAB PO SCH (21:17)
--- NOTE | 2017-12-22 05:38 | PDOC.FM ---
- Subjective Subjective: Pt. states he did well over night. He denies chest pain, SOB, dyspnea, or abdominal pain. He states that he is still having some swelling and LE pain. He is very concerned about his dental appointment. - Objective MAR Reviewed: Yes Vital Signs & Weight: Vital Signs (12 hours) Temp Pulse Resp BP Pulse Ox 12/22/17 04:00 97.8 F 101 H 20 102/55 L 94 L 12/21/17 20:15 98.3 F 76 17 111/57 L 94 L 12/21/17 20:00 98.3 F 76 17 Weight Weight 131.224 kg I&O: 12/20/17 12/21/17 12/22/17 06:59 06:59 06:59 Intake Total 120 1680 Output Total 200 1050 Balance -80 630 Result Diagrams: 12/22/17 06:04 12/22/17 06:04 Phys Exam - Physical Examination Constitutional: NAD HEENT: PERRLA, moist MMs Neck: no JVD, full ROM Respiratory: no wheezing, clear to auscultation bilateral Cardiovascular: RRR, no significant murmur Gastrointestinal: soft, non-tender, no distention, positive bowel sounds Unable to assess lower extremity pulses due to pitting edema and pain Neurological: moves all 4 limbs Psychiatric: normal affect, A&O x 3 Skin: cap refill <2 seconds Dx/Plan (1) Chest pain Code(s): R07.9 - CHEST PAIN, UNSPECIFIED Status: Acute (2) Acute on chronic combined systolic and diastolic congestive heart failure Code(s): I50.43 - ACUTE ON CHRONIC COMBINED SYSTOLIC AND DIASTOLIC HRT FAIL Status: Acute (3) CAD (coronary artery disease) Code(s): I25.10 - ATHSCL HEART DISEASE OF [place] CORONARY ARTERY W/O ANG PCTRS Status: Chronic Qualifiers: Coronary Disease-Associated Artery/Lesion type: bypass graft [place] vs. transplanted heart: [place] heart Associated angina: without angina Qualified Code(s): I25.810 - Atherosclerosis of coronary artery bypass graft(s) without angina pectoris (4) DM (diabetes mellitus), type 2, uncontrolled Code(s): E11.65 - TYPE 2 DIABETES MELLITUS WITH HYPERGLYCEMIA Status: Chronic Qualifiers: Diabetes mellitus residential insulin use: without termite control technician use Diabetes mellitus complication status: with hyperglycemia Qualified Code(s): E11.65 - Type 2 diabetes mellitus with hyperglycemia (5) HTN (hypertension) Code(s): I10 - ESSENTIAL (PRIMARY) HYPERTENSION Status: Chronic Qualifiers: Hypertension type: essential hypertension Qualified Code(s): I10 - Essential (primary) hypertension (6) Morbid obesity with BMI of 45.0-49.9, adult Code(s): E66.01 - MORBID (SEVERE) OBESITY DUE TO EXCESS CALORIES; Z68.42 - BODY MASS INDEX (BMI) 45.0-49.9, ADULT Status: Chronic (7) Non compliance w medication regimen Code(s): Z91.14 - PATIENT'S OTHER NONCOMPLIANCE WITH MEDICATION REGIMEN Status : Chronic - Plan Plan: This is a 62 yo male with a PMH of CABG, CHF, HTN, DMII Typical Chest pain -Patients pain is greatly improved. Tele shows NSR. pt. has been started on aspirin, and atorvastatin. Cardiology saw patient yesterday and while she does not think he is a candidate for any immediate intervention, she did believe that he should be considered for an AICD if he becomes more compliant with his current medical conditions and medications. Acute on chronic CHF exacerbation -CXR revealed pulmonary vascular congesion indicating fluid overload. A recent Echo shows EF pf 25-30%. Pt. has been diuresing with lasix 40mg BID and cardiology agrees with this plan. We will continue to monitor his vital signs for any changes. Bilateral lower extremity edema -Previous admission for cellulitis of lower extremity. With poorly controlled sugars, we are more concerned with the formation of wounds on his lower leg, although none seem to be present at this time. Pt. is fluid overloaded which could contribute to the status of his legs, but patient's saphenous veins were used in his previous cabg and could contribute to poor venous return. DMII -Blood glucose is still above 200. Pt. had an A1C of 10.5 on admission. He is receiving his home metformin and SSI. We will initiate 70/30 insulin to better control his glucose. This insulin would also be a cheaper alternative in the outpatient setting. Pt. was started on 13 units of 70/30 this morning with meals and we will see how is sugars are controlled. HTN -Continuing lisinopril and lasix Inability to afford medications -We have consulted case management for medication assistance as well as a dentist referral. Code:FULL Prophylaxis: lovenox Family: none at bedside Disposition: home in 1-2 days
[2017-12-22 06:15] LABS: #Basophils 0.1 thou/uL (0.0-0.2); #Eosinphils 0.2 thou/uL (0.0-0.7); #Lymphocytes 1.2 thou/uL (1.20-3.40); #Monocytes 0.6 thou/uL (0.11-0.59); #Neutrophils 4.1 thou/uL (1.40-6.50); %Eosinophils 3.4 % (0.0-10.0); %Lymphocytes 19.2 % (21.0-51.0); %Monocytes 9.2 % (0.0-10.0); %Neutrophils 67.2 % (42.0-75.0); Hemoglobin 12.7 g/dL (14.0-18.0); Mean Corpuscular HGB CONC 32.1 g/dL (32.0-36.0); Mean Corpuscular Hemoglobin 27.8 pg (27.0-31.0); Mean Corpuscular Volume 86.7 fL (78.0-98.0); Mean Platelet Volume 8.3 fL (7.4-10.4); Platelet Count 178 thou/uL (130-400); Red Blood Cell (RBC) Count 4.57 mill/uL (4.70-6.10); White Blood Cell (WBC) Count 6.2 thou/uL (4.8-10.8)
[2017-12-22] MEDS: Furosemide 40 MG/4 ML VIAL SLOW IVP SCH ×2 (06:16→13:09)
[2017-12-22 06:41] LABS: ALT (SGPT) 15 U/L (8-55); AST (SGOT) 19 U/L (5-34); Alkaline Phosphatase 94 U/L (40-150); Anion Gap 13 mmol/L (10-20); BUN (Urea Nitrogen) 20 mg/dL (8.4-25.7); Bilirubin, Total 0.8 mg/dL (0.2-1.2); Calc. Creatinine Clearance 185 mL/min (70-130); Calcium 8.7 mg/dL (7.8-10.44); Carbon Dioxide 23 mmol/L (23-31); Chloride 101 mmol/L (98-107); Estimated GFR-MDRD Greater than 90; Glucose 187 mg/dL (80-115); Potassium 3.6 mmol/L (3.5-5.1); Sodium 133 mmol/L (136-145)
[2017-12-22] MEDS: Lisinopril 5 MG TAB PO SCH (08:23)
[2017-12-22] MEDS: metFORMIN 500 MG TAB PO SCH ×2 (08:23→16:44)
[2017-12-22] MEDS: Aspirin 81 mg Enteric Coated Tablet PO SCH (08:23)
[2017-12-22] MEDS: Insulin NPH/Reg Insulin Hm 300 UNITS/3 ML VIAL SC SCH ×3 (09:16→16:44)
[2017-12-22] MEDS: HumaLOG 300 UNITS/3 ML VIAL SC PRN (11:05)
--- NOTE | 2017-12-22 15:33 | ADD-PRG ---
DATE OF SERVICE: 12/22/2017 ADDENDUM: To the note of Dr. Jonas Gao. HISTORY OF PRESENT ILLNESS: Mr. Fu is continuing to feel improved and less short of breath an d less edematous. We again had a very long discussion with this gentleman about medication complianc e explaining that his noncompliance is what he ended up in the hospital. He was also seen yesterday by Dr. George and we appreciate her input. She recommended continue his medical therapy for heart fail ure. She mentioned that she had a discussion with Mr. Fu about an AICD, but given his noncomp liance, this may not be a reasonable choice. In the event, clinically he is improved and we will con tinue medical management in anticipation of discharge tomorrow or shortly thereafter.
[2017-12-22] MEDS: Atorvastatin Calcium 40 MG TAB PO SCH (19:59)
[2017-12-22] MEDS: Enoxaparin Sodium 40 MG/0.4 ML SYRINGE SC SCH (19:59)
[2017-12-23] MEDS: Furosemide 40 MG/4 ML VIAL SLOW IVP SCH ×2 (05:21→13:33)
--- NOTE | 2017-12-23 05:49 | PDOC.FM ---
- Subjective Subjective: pt. states he did well over night. He denies chest pain, sob, dyspnea, or abdominal pain. Pt. states he is still having leg pain and swelling. He states he is still voiding regularly - Objective MAR Reviewed: Yes Vital Signs & Weight: Vital Signs (12 hours) Temp Pulse Resp BP Pulse Ox 12/23/17 04:00 97.8 F 73 18 128/70 93 L 12/22/17 19:58 98.2 F 77 18 119/59 L 94 L I&O: 12/21/17 12/22/17 12/23/17 06:59 06:59 06:59 Intake Total 1000 Output Total 1200 Balance -200 Result Diagrams: 12/23/17 05:40 12/22/17 06:04 Dx/Plan (1) Chest pain Code(s): R07.9 - CHEST PAIN, UNSPECIFIED Status: Acute (2) Acute on chronic combined systolic and diastolic congestive heart failure Code(s): I50.43 - ACUTE ON CHRONIC COMBINED SYSTOLIC AND DIASTOLIC HRT FAIL Status: Acute (3) CAD (coronary artery disease) Code(s): I25.10 - ATHSCL HEART DISEASE OF [place] CORONARY ARTERY W/O ANG PCTRS Status: Chronic Qualifiers: Coronary Disease-Associated Artery/Lesion type: bypass graft [place] vs. transplanted heart: [place] heart Associated angina: without angina Qualified Code(s): I25.810 - Atherosclerosis of coronary artery bypass graft(s) without angina pectoris (4) DM (diabetes mellitus), type 2, uncontrolled Code(s): E11.65 - TYPE 2 DIABETES MELLITUS WITH HYPERGLYCEMIA Status: Chronic Qualifiers: Diabetes mellitus keno terminal operator insulin use: without keno terminal operator use Diabetes mellitus complication status: with hyperglycemia Qualified Code(s): E11.65 - Type 2 diabetes mellitus with hyperglycemia (5) HTN (hypertension) Code(s): I10 - ESSENTIAL (PRIMARY) HYPERTENSION Status: Chronic Qualifiers: Hypertension type: essential hypertension Qualified Code(s): I10 - Essential (primary) hypertension (6) Morbid obesity with BMI of 45.0-49.9, adult Code(s): E66.01 - MORBID (SEVERE) OBESITY DUE TO EXCESS CALORIES; Z68.42 - BODY MASS INDEX (BMI) 45.0-49.9, ADULT Status: Chronic (7) Non compliance w medication regimen Code(s): Z91.14 - PATIENT'S OTHER NONCOMPLIANCE WITH MEDICATION REGIMEN Status : Chronic - Plan Plan: This is a 62 yo male with a PMH of CABG, CHF, HTN, DMII Typical chest pain -Pain is resolved. Pt. is taking aspirin and atorvastatin. Cardiology feels pt. would be a candidate for an AICD placement if it was not for his noncompliance with current medications. We will assess his compliance in the outpatient setting. Acute on chronic CHF exacerbation -CXR revealed pulmonary vascular congestion indicating fluid overload. A recdent ECho shoes EF of 25-30%. Pt. has been diuresing with lasix now 80mg BID. We will continue to monitor his vital signs for any changes. Bilateral lower extremity edema -Previous admission for cellulitis of lower extermity. With poorly controlled sugars, we are more concerned with the formation of wounds on his lower gel, although non seem to be present at this time. Pt. is fluid overloaded which could contribute to the status of his legs, but patient's saphenous veins were used in his previous CABG and may contribute to poor venous return. I talked with him regarding using compression stockings. He states he would be willing to try them if they are not too expensive. DMII -Pt. was started on novolog 70/30 13 units yesterday and this seems to have better controlled his sugar through out the day. We may try to discharge the patient on this medication. HTN -Continue lasix and lisinopril Inability to afford medications -We have consulted case management for medication assistance as well as a dentist referral Code: FULL Prophylaxis: lovenox Family: none at bedside Disposition: home possibly tomorrow
[2017-12-23 06:10] LABS: #Eosinphils 0.2 thou/uL (0.0-0.7); #Lymphocytes 1.6 thou/uL (1.20-3.40); #Monocytes 0.6 thou/uL (0.11-0.59); #Neutrophils 4.3 thou/uL (1.40-6.50); %Basophils 0.3 % (0.0-1.0); %Eosinophils 3.2 % (0.0-10.0); %Lymphocytes 23.2 % (21.0-51.0); %Monocytes 9.5 % (0.0-10.0); %Neutrophils 63.9 % (42.0-75.0); Hemoglobin 12.8 g/dL (14.0-18.0); Mean Corpuscular HGB CONC 33.4 g/dL (32.0-36.0); Mean Corpuscular Hemoglobin 28.9 pg (27.0-31.0); Mean Corpuscular Volume 86.6 fL (78.0-98.0); Mean Platelet Volume 8.5 fL (7.4-10.4); Platelet Count 194 thou/uL (130-400); Red Blood Cell (RBC) Count 4.45 mill/uL (4.70-6.10); White Blood Cell (WBC) Count 6.7 thou/uL (4.8-10.8)
[2017-12-23] MEDS: Lisinopril 5 MG TAB PO SCH (08:44)
[2017-12-23] MEDS: metFORMIN 500 MG TAB PO SCH ×2 (08:44→17:42)
[2017-12-23] MEDS: Insulin NPH/Reg Insulin Hm 300 UNITS/3 ML VIAL SC SCH ×3 (08:47→17:42)
[2017-12-23] MEDS: Aspirin 81 mg Enteric Coated Tablet PO SCH (08:47)
[2017-12-23 08:53] LABS: Anion Gap 14 mmol/L (10-20); BUN (Urea Nitrogen) 16 mg/dL (8.4-25.7); Calc. Creatinine Clearance 165 mL/min (70-130); Carbon Dioxide 28 mmol/L (23-31); Chloride 99 mmol/L (98-107); Estimated GFR-MDRD Greater than 90; Glucose 184 mg/dL (80-115); Potassium 3.9 mmol/L (3.5-5.1); Sodium 137 mmol/L (136-145)
--- NOTE | 2017-12-23 15:00 | ADD-PRG ---
DATE OF SERVICE: 12/23/2017 Add this as an addendum to the note of Dr. Jonas Gao. Mr. Fu continues to look and feel well, diuresing briskly. He will be ready for discharge in 1-2 days.
[2017-12-23] MEDS: Atorvastatin Calcium 40 MG TAB PO SCH (20:46)
[2017-12-23] MEDS: Enoxaparin Sodium 40 MG/0.4 ML SYRINGE SC SCH (20:46)
--- NOTE | 2017-12-24 05:20 | PDOC.FM ---
- Subjective Subjective: No acute events overnight. Denies feeling SOB. Endorses LLE pain that is tender to touch, unchanged from yesterday. - Objective MAR Reviewed: Yes Vital Signs & Weight: Vital Signs (12 hours) Temp Pulse Resp BP BP Pulse Ox 12/24/17 04:00 97.6 F 76 13 115/64 90 L 12/23/17 23:41 98.3 F 72 15 118/60 91 L 12/23/17 20:44 97.8 F 75 20 122/58 L 94 L Weight Weight 129.591 kg I&O: 12/22/17 12/23/17 12/24/17 06:59 06:59 06:59 Intake Total 1720 Output Total 2350 Balance -630 Result Diagrams: 12/24/17 05:35 12/24/17 05:35 <Yolie Ibrahim - Last Filed: 12/24/17 11:04> - Objective Vital Signs & Weight: Vital Signs (12 hours) Temp Pulse Resp BP BP Pulse Ox 12/24/17 08:30 97.6 F 75 20 93 L 12/24/17 08:28 75 20 135/68 93 L 12/24/17 04:00 97.6 F 76 13 115/64 90 L 12/23/17 23:41 98.3 F 72 15 118/60 91 L Weight Weight 126.552 kg I&O: 12/23/17 12/24/17 12/25/17 06:59 06:59 06:59 Intake Total 1720 720 Output Total 2350 1050 Balance -630 -330 Result Diagrams: 12/24/17 05:35 12/24/17 05:35 <Erlin De Los Santos - Last Filed: 12/24/17 11:25> Phys Exam - Physical Examination Constitutional: NAD Neck: supple Respiratory: clear to auscultation bilateral Cardiovascular: no significant murmur Psychiatric: A&O x 3 Deviation from normal: LLE edema 3+, dry, erythematous, not warm to touch, tender to palpation but -: no fluid fluctuance. grossly intact sensation, pulses faint but present <Yolie Ibrahim - Last Filed: 12/24/17 11:04> Dx/Plan (1) Acute exacerbation of CHF (congestive heart failure) Code(s): I50.9 - HEART FAILURE, UNSPECIFIED Status: Acute (2) CAD (coronary artery disease) Code(s): I25.10 - ATHSCL HEART DISEASE OF [place] CORONARY ARTERY W/O ANG PCTRS Status: Chronic QualifierTitle: Coronary Disease-Associated Artery/Lesion type: bypass graft [place] vs. transplanted heart: [place] heart Associated angina: without angina Qualified Code(s): I25.810 - Atherosclerosis of coronary artery bypass graft(s) without angina pectoris (3) DM (diabetes mellitus), type 2, uncontrolled Code(s): E11.65 - TYPE 2 DIABETES MELLITUS WITH HYPERGLYCEMIA Status: Chronic QualifierTitle: Diabetes mellitus halfway insulin use: without halfway use Diabetes mellitus complication status: with hyperglycemia Qualified Code (s): E11.65 - Type 2 diabetes mellitus with hyperglycemia (4) Dyslipidemia Code(s): E78.5 - HYPERLIPIDEMIA, UNSPECIFIED Status: Chronic (5) HTN (hypertension) Code(s): I10 - ESSENTIAL (PRIMARY) HYPERTENSION Status: Chronic QualifierTitle: Hypertension type: essential hypertension Qualified Code( s): I10 - Essential (primary) hypertension - Plan Plan: 62 yo male with a PMH of CABG, CHF, HTN, DMII with acute on chronic CHF exacerbation 1. Typical chest pain -Pain is resolved. Pt. is taking aspirin and atorvastatin. Cardiology feels pt. would be a candidate for an AICD placement if it was not for his noncompliance with current medications. We will assess his compliance in the outpatient setting. 2. CHFrEF (acute on chronic exacerbation) -CXR: fluid overload -Echo on this admission: EF 25-30% -Currently on IV 80mg BID --> discharge with Lasix 40mg po BID -I/O balance -300 3. Bilateral lower extremity edema -Prior history of lower extremity cellulitis, s/p CV surgery on LLE, s/p CABG with use of saphenous vein for grafting -Also 2/2 to acute CHF exacerbation -Consider compression stockings - discuss with case mgmt over financial assistance 4. DMII -Possibly 2/2 non-compliance -Pt. was started on novolog 70/30 13 units two days ago; recent glucose was 175 --> discharge with home Novolog 5. HTN -Continue lasix and lisinopril 6. Inability to afford medications -We have consulted case management for medication assistance as well as a dentist referral Aware that patient's non-compliance is due to barriers to medication access. Lasix and Novolog are affordable for a month supply (i.e. <$7 for month supply of Lasix); plan to also discuss [facility] with us for financial assistance Code: FULL PPX: lovenox Disposition: Discharge today with home Lasix & Novolog Plan was discussed with Dr. De Los Santos <Yolie Ibrahim - Last Filed: 12/24/17 11:04> Attending Addendum - Attending Addendum Date/Time: 12/24/17 1123 I personally evaluated the patient and discussed the management with Dr. Arrieta I agree with the History, Examination, Assessment and Plan documented above with any addition or exceptions noted below.Patient ambulating in Hallways no distress appear to be back at his dry weight ok to dismiss home encourage compliance, diet fluid and salt restriction . Continue inpatient novulin 70/30 for diabetes. <Erlin De Los Santos - Last Filed: 12/24/17 11:25>
[2017-12-24 06:00] LABS: #Eosinphils 0.2 thou/uL (0.0-0.7); #Lymphocytes 1.4 thou/uL (1.20-3.40); #Monocytes 0.6 thou/uL (0.11-0.59); #Neutrophils 4.7 thou/uL (1.40-6.50); %Basophils 0.7 % (0.0-1.0); %Eosinophils 2.4 % (0.0-10.0); %Lymphocytes 19.9 % (21.0-51.0); %Monocytes 8.8 % (0.0-10.0); %Neutrophils 68.2 % (42.0-75.0); Hemoglobin 12.5 g/dL (14.0-18.0); Mean Corpuscular HGB CONC 32.9 g/dL (32.0-36.0); Mean Corpuscular Hemoglobin 28.5 pg (27.0-31.0); Mean Corpuscular Volume 86.7 fL (78.0-98.0); Mean Platelet Volume 8.1 fL (7.4-10.4); Platelet Count 198 thou/uL (130-400); Red Blood Cell (RBC) Count 4.37 mill/uL (4.70-6.10); White Blood Cell (WBC) Count 6.9 thou/uL (4.8-10.8)
[2017-12-24] MEDS: Furosemide 40 MG/4 ML VIAL SLOW IVP SCH (06:16)
[2017-12-24 06:18] LABS: Anion Gap 13 mmol/L (10-20); BUN (Urea Nitrogen) 20 mg/dL (8.4-25.7); Calc. Creatinine Clearance 171 mL/min (70-130); Calcium 9.2 mg/dL (7.8-10.44); Carbon Dioxide 28 mmol/L (23-31); Chloride 99 mmol/L (98-107); Estimated GFR-MDRD Greater than 90; Glucose 216 mg/dL (80-115); Potassium 3.8 mmol/L (3.5-5.1); Sodium 136 mmol/L (136-145)
[2017-12-24] MEDS: Insulin NPH/Reg Insulin Hm 300 UNITS/3 ML VIAL SC SCH ×3 (08:29→18:08)
[2017-12-24] MEDS: Aspirin 81 mg Enteric Coated Tablet PO SCH (08:29)
[2017-12-24] MEDS: Lisinopril 5 MG TAB PO SCH (08:29)
[2017-12-24] MEDS: metFORMIN 500 MG TAB PO SCH ×2 (08:29→17:12)
[2017-12-24] MEDS ORDERED: Metolazone 5 MG TAB PO SCH (08:30)
[2017-12-24] MEDS ORDERED: Furosemide 40 MG TAB PO SCH (14:00)
[2017-12-24] MEDS ORDERED: Carvedilol 3.125 MG TAB PO SCH (17:00)
[2017-12-24 17:12] VITALS: BP 110/58; TEMP 97.9
--- NOTE | 2017-12-25 03:24 | DIS-2 ---
DATE OF ADMISSION: 12/22/2017 DATE OF DISCHARGE: 12/24/2017 RESIDENT: Yolie Ibrahim. ADMITTING ATTENDING: Dr. Jeff Garcia. DISCHARGE ATTENDING: Dr. Erlin De Los Santos. CONSULTATIONS: Cardiology. PROCEDURES: None. PRIMARY DIAGNOSIS: Congestive heart failure exacerbation with reduced ejection fraction. SECONDARY DIAGNOSES: Hyponatremia, hyperglycemia and hypoalbuminemia. DISCHARGE MEDICATIONS: 1. Aspirin 81 mg p.o. daily. 2. Lipitor 40 mg p.o. at bedtime. 3. Tums 1000 mg p.o. q.4 hours p.r.n. for heartburn or indigestion. 4. Coreg 3.125 mg p.o. b.i.d. with meals. 5. Lasix 40 mg p.o. b.i.d. 6. Novolin 70/30. 7. Lisinopril 5 mg p.o. daily. 8. Metformin 500 mg p.o. b.i.d. with meals. DISCONTINUED MEDICATIONS: None. HISTORY OF PRESENT ILLNESS AND HOSPITAL COURSE: The patient came in for chest pain and was admitted for ACS rule out due to risk factors. Due to recent hospitalization with cardiac workup which Dr. Rocio gauthier was consulted and because of recent imaging, recommended not to perform NST or echo. The patient was also experiencing bilateral lower extremity edema, worsening from baseline. He was given IV Lasi x 80 mg and clinically improved. Cardiac enzymes were negative. It was discovered that the patient' s CHF exacerbation was secondary to noncompliance with obtaining medications due to inability to affo rd per patient. Upon discharge, medications were chosen that were financially affordable (i.e., Lasi x, and Novolin). Financial barriers were discussed with the patient and he stated he would be able t o sampler pickup and afford his medications upon leaving the hospital today. It is also recommended to purc hase compression stockings to help with lower extremity edema. DISPOSITION: Stable. DISCHARGE INSTRUCTIONS: 1. Location: Home. 2. Diet: Heart healthy. 3. Activity: Ad jonathan. FOLLOWUP: Please follow up with PCP at [facility].
--- NOTE | 2017-12-27 01:11 | DIS-2 ---
DATE OF ADMISSION: 12/20/2017 DATE OF DISCHARGE: 12/24/2017 ADMITTING ATTENDING: Richy Friedman MD DISCHARGE ATTENDING: Erlin De Los Santos MD CONSULTATIONS: Genet George M.D., Cardiology. PROCEDURES: Chest x-ray 12/20/2017 shows heart is enlarged, has pulmonary vascular congestion. Find ings are suspicious of CHF, venogram 12/21/2017, no evidence of DVT in either lower extremity, foot x -ray 12/21/2017, soft tissue swelling, generalized degenerative changes. No evidence for Charcot luis t. PRIMARY DIAGNOSIS: Congestive heart failure exacerbation. SECONDARY DIAGNOSES: Coronary artery disease, type 2 diabetes, hyperlipidemia, hypertension, morbid obesity, poor dentition, poor compliance. DISCHARGE MEDICATIONS: 1. Aspirin 81 mg p.o. daily, atorvastatin 40 mg p.o. daily, calcium carbonate p.o. q.4 hours. 2. Carvedilol 3.125 mg b.i.d. with meals. 3. Furosemide 40 mg b.i.d. 4. Novolin 70/30 13 units q.a.c. 5. Lisinopril 5 mg p.o. daily. 6. Metformin 500 mg p.o. b.i.d. with meals. 7. Metoprolol 25 mg daily. 8. Nitroglycerin tab every 5 minutes p.r.n. pain. DISCONTINUED MEDICATIONS: None. HOSPITAL COURSE AND HISTORY OF PRESENT ILLNESS: This is a 62-year-old male with a past medical histo ry of CABG, CHF, hypertension, CAD, type 2 diabetes and poor medical compliance, states that he was a t rest in his recliner and had a substernal pain described as a pressure, 10/10. He had observed whe n walking the pain subsided and he sat down again. The pain waxes and wanes and is worse with activi ty, decreased with rest. Patient had associated nausea, shortness of breath and dyspnea on exertion. Patient states that his legs are slightly swollen since his previous discharge. Patient's troponin s were negative x2. BNP was 702.6. Glucose was initially elevated at 292 and was controlled with No voLog and sliding scale. Patient was diagnosed primarily with CHF and was treated with diuresis init ially 40 mg b.i.d. The patient was increased to 80 mg b.i.d. IV Lasix and was diuresed appropriately . The patient was kept in the hospital for diuresis due to poor compliance and frequent bounce back. DISPOSITION: Stable. DISCHARGE INSTRUCTIONS: 1. Location: Home. 2. Diet: Diabetic and heart healthy diet. 3. Activity: As cardiopulmonary limits, tolerate. 4. Follow up with primary care physician in 1-2 weeks.
== END 2017-12-24 19:06 | disposition home or self-care (01) | DRG 292 ==
LOC: ERS 16:46 → 2NO 21:35 → INTOOBSV 21:35 → OBSVTOIN 12-22 15:21
PROVIDERS: ADMIT Family Medicine; ATTEND Family Medicine
DX: I11.0 Hypertensive heart disease with heart failure (principal); E87.1 Hypo-osmolality and hyponatremia; Z68.42 Body mass index [BMI] 45.0-49.9, adult; I50.43 Acute on chronic combined systolic (congestive) and diastolic (congestive) heart failure; E11.65 Type 2 diabetes mellitus with hyperglycemia; Z79.4 Long term (current) use of insulin; E88.09 Other disorders of plasma-protein metabolism, not elsewhere classified; T50.1X6A Underdosing of loop [high-ceiling] diuretics, initial encounter; Y92.9 Unspecified place or not applicable; I25.10 Atherosclerotic heart disease of native coronary artery without angina pectoris; Z95.1 Presence of aortocoronary bypass graft; E78.5 Hyperlipidemia, unspecified; E66.01 Morbid (severe) obesity due to excess calories
CPT/HCPCS: 36415; 36416; 71045; 80048; 80053; 82553; 83036; 83880; 84145; 84484; 85025; 87040; 93005; 93970; 94760; 96374; A4216; G8978-GP-CI; G8979-GP-CI; G8980-GP-CI; G8987-GO-CI; G8988-GO-CI; G8989-GO-CI; J1650; J1940

== ENCOUNTER 2018-01-16 23:24 | Emergency (ER) | payer MEDICARE ==
[2018-01-17 00:10] LABS: #Eosinphils 0.1 thou/uL (0.0-0.7); #Lymphocytes 1.1 thou/uL (1.20-3.40); #Monocytes 0.6 thou/uL (0.11-0.59); #Neutrophils 5.8 thou/uL (1.40-6.50); %Basophils 0.6 % (0.0-1.0); %Eosinophils 1.8 % (0.0-10.0); %Lymphocytes 14.6 % (21.0-51.0); %Monocytes 8.1 % (0.0-10.0); %Neutrophils 74.9 % (42.0-75.0); Hemoglobin 13.2 g/dL (14.0-18.0); Mean Corpuscular HGB CONC 33.6 g/dL (32.0-36.0); Mean Corpuscular Volume 86.4 fL (78.0-98.0); Mean Platelet Volume 8.1 fL (7.4-10.4); Platelet Count 211 thou/uL (130-400); RBC Distribution Width 15.1 % (11.5-14.5); Red Blood Cell (RBC) Count 4.55 mill/uL (4.70-6.10); White Blood Cell (WBC) Count 7.7 thou/uL (4.8-10.8)
[2018-01-17 00:25] LABS: ALT (SGPT) 8 U/L (8-55); AST (SGOT) 12 U/L (5-34); Albumin 3.1 g/dL (3.4-4.8); Alkaline Phosphatase 112 U/L (40-150); Anion Gap 13 mmol/L (10-20); BUN (Urea Nitrogen) 14 mg/dL (8.4-25.7); Bilirubin, Total 0.5 mg/dL (0.2-1.2); Calc. Creatinine Clearance 0 mL/min (70-130); Carbon Dioxide 24 mmol/L (23-31); Chloride 101 mmol/L (98-107); Estimated GFR-MDRD 79; Globulin 4.6 g/dL (2.4-3.5); Glucose 423 mg/dL (80-115); Potassium 4.2 mmol/L (3.5-5.1); Protein, Total 7.7 g/dL (5.8-8.1); Sodium 134 mmol/L (136-145)
[2018-01-17] MEDS ORDERED: Insulin Regular 300 UNITS/3 ML VIAL ONE (04:43)
--- NOTE | 2018-01-17 08:38 | ULT ---
PRELIMINARY REPORT/[facility]/EMERGENTY AFTER-HOURS PROCEDURE US Duplex Bilateral Lower Extremity Veins EXAM DATE/TIME: Exam ordered 01/17/2018 1:26 AM CLINICAL HISTORY: 62 years old, male; Pain and signs and symptoms; Edema, localized; Lower extremity, bilateral; Leg, l ower; Patient HX: Ble pain worse past 3 days, lle> rle TECHNIQUE: Real-time duplex ultrasound scan of the bilateral lower extremity veins integrating B-mode two dimens ional vascular structure, Doppler spectral analysis, color flow Doppler imaging and compression. COMPARISON: No relevant prior studies available. FINDINGS: Right deep veins: Unremarkable. No DVT in the right common femoral, femoral, proximal deep femoral or popliteal veins. The veins demonstrate normal color flow, are normally compressible, with normal pha sic flow and/or augmentation response. Right superficial veins: Unremarkable. No thrombus in the visualized right great saphenous vein. Left deep veins: Unremarkable. No DVT in the left common femoral, femoral, proximal deep femoral or p opliteal veins. The veins demonstrate normal color flow, are normally compressible, with normal phasi c flow and/or augmentation response. Left superficial veins: Unremarkable. No thrombus in the visualized left great saphenous vein. Soft tissues: Superficial edema. No popliteal cyst. Lymph nodes: Mildly prominent inguinal lymph nodes measuring up to 1.3 cm in short axis, nonspecific and indeterminate. IMPRESSION: 1. Superficial edema. 2. No DVT. 3. Mildly prominent inguinal lymph nodes measuring up to 1.3 cm in short axis, nonspecific and indete rminate. Thank you for allowing us to participate in the care of your patient. Dictated and Authenticated by: Piotr Philip MD 01/17/2018 2:32 AM Central Time ([place] & [place]) FINAL REPORT BILATERAL LOWER EXTREMITY VENOUS DOPPLER: Date: 01/17/18 HISTORY: Lower extremity swelling, edema, and pain. COMPARISON: Bilateral lower extremity venous Doppler dated 12/21/17. FINDINGS: Real-time [place] scale and color Doppler with spectral analysis of the bilateral lower extremity venous system was performed. The common femoral, femoral, proximal portions of greater saphenous and deep f emoral veins, as well as the popliteal and posterior tibial veins were interrogated. Findings and impression are concordant with the preliminary report by Agnes. POS: [facility]
== END 2018-01-17 05:12 | disposition home or self-care (01) ==
LOC: ERS 23:24
DX: M79.89 Other specified soft tissue disorders (principal); E11.65 Type 2 diabetes mellitus with hyperglycemia; I25.10 Atherosclerotic heart disease of native coronary artery without angina pectoris; I25.2 Old myocardial infarction; E78.5 Hyperlipidemia, unspecified; I11.0 Hypertensive heart disease with heart failure; I50.9 Heart failure, unspecified; Z87.891 Personal history of nicotine dependence; Z79.899 Other long term (current) drug therapy
CPT/HCPCS: 36415; 36416; 80053; 83880; 85025; 93970; J1815

== ENCOUNTER 2018-03-12 17:16 | Inpatient (IN) | payer MEDICARE ==
[~2018-03-12 17:16] MED LIST: ISOVUE-370 76%-LOCM 1 ML ONE
[2018-03-12] MEDS ORDERED: Nitroglycerin 0.4 MG TAB (25 Tab Bottle) ONE (17:48)
[2018-03-12] MEDS ORDERED: Nitroglycerin 2% Ointment 1 INCH/1 GM Packet ONE (17:48)
[2018-03-12] MEDS ORDERED: Furosemide 40 MG/4 ML VIAL ONE (17:48)
--- NOTE | 2018-03-12 18:04 | RAD ---
CHEST ONE VIEW: INDICATIONS: Dyspnea. COMPARISON: 12/20/2017 FINDINGS: There is cardiomegaly with pulmonary vascular congestion and prominent interstitial edema. There are tiny pleural effusions. Midline sternotomy changes are similar. No pneumothorax is evident. IMPRESSION: Findings of congestive heart failure. POS: [facility]
[2018-03-12 18:08] LABS: #Basophils 0.1 thou/uL (0.0-0.2); #Eosinphils 0.4 thou/uL (0.0-0.7); #Lymphocytes 1.1 thou/uL (1.20-3.40); #Monocytes 0.6 thou/uL (0.11-0.59); #Neutrophils 5.5 thou/uL (1.40-6.50); %Basophils 0.7 % (0.0-1.0); %Eosinophils 4.9 % (0.0-10.0); %Lymphocytes 14.9 % (21.0-51.0); %Neutrophils 71.6 % (42.0-75.0); Hemoglobin 14.2 g/dL (14.0-18.0); Mean Corpuscular HGB CONC 31.5 g/dL (32.0-36.0); Mean Corpuscular Hemoglobin 27.8 pg (27.0-31.0); Mean Corpuscular Volume 88.1 fL (78.0-98.0); Mean Platelet Volume 8.5 fL (7.4-10.4); Platelet Count 230 thou/uL (130-400); RBC Distribution Width 16.3 % (11.5-14.5); Red Blood Cell (RBC) Count 5.13 mill/uL (4.70-6.10); White Blood Cell (WBC) Count 7.7 thou/uL (4.8-10.8)
[2018-03-12 18:28] LABS: ALT (SGPT) 14 U/L (8-55); AST (SGOT) 24 U/L (5-34); Albumin 3.3 g/dL (3.4-4.8); Alkaline Phosphatase 123 U/L (40-150); Anion Gap 10 mmol/L (10-20); BUN (Urea Nitrogen) 13 mg/dL (8.4-25.7); Bilirubin, Total 0.9 mg/dL (0.2-1.2); CK (CPK) 62 U/L (30-200); Calc. Creatinine Clearance 0 mL/min (70-130); Calcium 9.5 mg/dL (7.8-10.44); Carbon Dioxide 28 mmol/L (23-31); Chloride 101 mmol/L (98-107); Estimated GFR-MDRD 74; Globulin 5.3 g/dL (2.4-3.5); Glucose 256 mg/dL (80-115); Potassium 4.4 mmol/L (3.5-5.1); Protein, Total 8.6 g/dL (5.8-8.1); Sodium 135 mmol/L (136-145)
[2018-03-12 18:30] LABS: CKMB 1.5 ng/mL (0-6.6); Troponin I Less than 0.010 ng/mL (< 0.028)
[2018-03-12] MEDS ORDERED: Piperacillin/Tazobactam 4.5 GM VIAL ONE (19:01)
--- NOTE | 2018-03-12 20:13 | CT ---
CTA THORAX UTILIZING IV CONTRAST WITH PE PROTOCOL AND 3D REFORMATTED IMAGING: INDICATIONS: History of CHF and intermittent chest pain. COMPARISON: Prior exam dated 01/30/2017. FINDINGS: No central or segmental pulmonary embolus is evident. There are prominent vascular calcifications in volving the thoracic aorta and coronary arteries. There is post surgical change of prior CABG. Juvenal opathy of the mediastinum is relatively stable. The more prominent superior mediastinal lymph nodes measures 1.5 cm, where it measured 1.6 cm on the prior exam. There is an enlarged right paratracheal lymph node, measuring 1.5 cm, which is stable. Prominent subcarinal lymph node measures 2.6 cm, whi ch is relatively stable. There are bilateral pleural effusions. There is scattered emphysema. Ther e is scarring within the left upper lobe, which is stable. The visualized upper abdomen reveals no d efinite acute abnormality. There is scattered degenerative and osteoarthritic change. IMPRESSION: 1. No central or segmental pulmonary embolus. 2. Findings of congestive heart failure. 3. Stable mediastinal adenopathy. POS: [facility]
[2018-03-12] MEDS ORDERED: Vancomycin HCl 1.5 GM in Sodium Chloride 0.9% 250 ML 300 ML IVPB SCH (21:15)
[2018-03-12] MEDS ORDERED: Ondansetron PF 4 MG/2 ML Vial IVP PRN ×2 (22:31→22:37)
[2018-03-12] MEDS ORDERED: Ondansetron ODT 4 MG TAB SL PRN (22:31)
[2018-03-12] MEDS ORDERED: Acetaminophen 325 MG TAB PO PRN (22:31)
[2018-03-12 23:10] LABS: Troponin I 0.019 ng/mL (< 0.028)
[2018-03-13 00:55] LABS: Troponin I 0.014 ng/mL (< 0.028)
[2018-03-13] MEDS ORDERED: HumaLOG 300 UNITS/3 ML VIAL SC PRN (03:11)
[2018-03-13] MEDS ORDERED: Dextrose 50% Abboject 50 ML SYRINGE SLOW IVP PRN (03:11)
[2018-03-13] MEDS ORDERED: Dextrose 5% in Water 1,000 ML IV PRN (03:11)
[2018-03-13 05:03] LABS: #Basophils 0.1 thou/uL (0.0-0.2); #Eosinphils 0.4 thou/uL (0.0-0.7); #Lymphocytes 1.1 thou/uL (1.20-3.40); #Monocytes 0.8 thou/uL (0.11-0.59); #Neutrophils 5.5 thou/uL (1.40-6.50); %Eosinophils 5.1 % (0.0-10.0); %Lymphocytes 13.8 % (21.0-51.0); %Monocytes 9.8 % (0.0-10.0); %Neutrophils 70.3 % (42.0-75.0); Mean Corpuscular HGB CONC 31.8 g/dL (32.0-36.0); Mean Corpuscular Hemoglobin 27.9 pg (27.0-31.0); Mean Corpuscular Volume 87.8 fL (78.0-98.0); Mean Platelet Volume 8.4 fL (7.4-10.4); Platelet Count 215 thou/uL (130-400); RBC Distribution Width 16.2 % (11.5-14.5); White Blood Cell (WBC) Count 7.8 thou/uL (4.8-10.8)
[2018-03-13 05:17] LABS: Anion Gap 6 mmol/L (10-20); BUN (Urea Nitrogen) 15 mg/dL (8.4-25.7); Calc. Creatinine Clearance 167 mL/min (70-130); Calcium 8.9 mg/dL (7.8-10.44); Carbon Dioxide 29 mmol/L (23-31); Chloride 104 mmol/L (98-107); Estimated GFR-MDRD 89; Glucose 212 mg/dL (80-115); Potassium 3.9 mmol/L (3.5-5.1); Sodium 135 mmol/L (136-145)
[2018-03-13] MEDS: Furosemide 40 MG/4 ML VIAL SLOW IVP SCH ×2 (06:31→14:28)
[2018-03-13] MEDS: Piperacillin/Tazobactam 4.5 GM in Sodium Chloride 0.9% 100 ML IVPB SCH ×4 (07:19→23:45)
--- NOTE | 2018-03-13 08:19 | HP ---
CHIEF COMPLAINT: Shortness of breath. HISTORY OF PRESENT ILLNESS: This is a 62-year-old male with past medical history of CHF, systolic presents to ED with chief complaint of shortness of breath and bilateral lower extremity edema, which has been ongoing for the past 2 days. Per the patient, he was in bed with his leg very swollen and leaking fluid and his bed was soaked with fluid sweating and his niece decided to bring him to the hospital to be evaluated, because the patient was severely having shortness of breath and also having leaking fluid from his lower extremities bilaterally. Patient states that he has some intermittent chest pain in the last 3 days. Patient also have some chills and productive cough in addition to his intermittent chest pain. In the ED, patient's oxygenation is 86 on room air. Patient is hypertensive and tachypneic at 32. Of note, patient was recently admitted in our hospital and discharged on a systolic CHF and patient was started on Lasix and to be continued on Lasix. Patient states that the Lasix that has been given to him, he has been taking it, as he ran out of Lasix , not too long ago. Echo in the past, so the patient's ejection fraction is 25% -30%. REVIEW OF SYSTEMS: Positive for shortness of breath, bilateral lower extremity swelling, pain in the lower extremities, weeping fluids, associated chills. Otherwise, as documented in HPI, all other systems were reviewed and are negative. PAST MEDICAL HISTORY: Congestive heart failure, coronary artery disease, myocardial infarction, diabetes mellitus type 2, hyperlipidemia, hypertension, obesity. FAMILY HISTORY: Reviewed and non-contributory PAST SURGICAL HISTORY: Coronary artery disease status post CABG. PSYCHIATRIC HISTORY: Patient has no previous psychiatric history. SOCIAL HISTORY: Patient states that he was a former smoker, quit about 6 years ago. Patient denies any illicit drug use and denies any alcohol use. Patient stays at home with niece. ALLERGIES: No known drug allergies. CURRENT MEDICATIONS: Patient is on Lasix 40 mg, lisinopril 20 mg, metformin 1000 mg. PHYSICAL EXAMINATION: VITAL SIGNS: Blood pressure is 157/94, pulse of 103, respiratory rate of , temperature of 98.1, O2 saturation of 86 on room air. GENERAL: Patient is lying in bed, appears to have some shortness of breath, able to speak in full sentences, does not appear to be in any acute distress. HEENT: Normocephalic, atraumatic. Pupils are equal, round, and reactive to light. Extraocular muscles are intact. No scleral icterus. No conjunctival pallor. NECK: There is mild JVD noted. Trachea is midline. Neck is supple. Mucous membranes are moist. LUNGS: Clear to auscultation bilaterally at the anterior lung araya, posterior lung araya. Patient did have some rales that can be appreciated at the lower bases bilaterally. CARDIOVASCULAR: Positive S1, S2. Regular rate and rhythm. No murmurs, no gallops or rubs appreciated. ABDOMEN: Obese abdomen. Soft, nontender, nondistended. EXTREMITIES: Upper extremity, patient has 5/5 upper extremity strength. Patient is able to have spontaneous free motion of the upper extremity without any restrictions. Radial pulse is intact. Lower extremity, patient has bilateral edematous leg with weeping discharge, foul smelling lower extremity. Patient has good pulses bilaterally and has good sensation intact. Patient has 4+ pitting edema. NEUROLOGIC: Cranial nerves II through XII grossly intact. No neurologic deficits noted. SKIN: Warm, dry, and intact. Kindly refer to lower extremity description. PSYCHIATRIC: Normal affect. IMAGING DATA: EKG shows sinus rhythm with rate of 97. Chest x-ray consistent with CHF. In the ED, patient was given vancomycin, Zosyn, nitro sublingual, aspirin, Lasix IV. LABORATORY DATA: WBC is 7.7, hemoglobin is 14.2, hematocrit is 45.2, RDW of 16.3, platelet is 230. D-dimer is 1.53. Sodium is 135, potassium is 4.4, chloride is 101, carbon dioxide of 28, anion gap is 10, BUN is 13, creatinine is 1.02, GFR is 74, glucose is 256. Total bilirubin 0.9, AST is 24, ALT is 14, alkaline phosphatase is 123. Creatine kinase is 62. BNP is 1081. TSH is 2.6. ASSESSMENT AND PLAN: This is a 62-year-old male being admitted for: 1. Shortness of breath due to acute on chronic systolic congestive heart failure exacerbation. At this point, patient has been started on Lasix. We are going to get Cardiology consult. Echo has been ordered. We are going to follow up with the patient closely. We will rule out pulmonary embolism at this time. 1. History of diabetes mellitus, uncontrolled. We will start the patient on insulin sliding scale. We will continue patient on sliding scale and monitor patient's glucose closely. 2. Bilateral lower extremity edema. We will start the patient on Lasix. We will monitor patient's lower extremity edema for any changes. 3. Hyperlipidemia. Continue patient on current medication. 4. Hypertension. We will monitor patient's blood pressure and we will give patient's blood pressure medication as needed. 5. Deep venous thrombosis and gastrointestinal prophylaxis. Patient is on SCDs and we will do Lovenox prophylaxis. 6. Lower extremity cellulitis with foul odor. We will start the patient on vancomycin, Zosyn to cover Pseudomonas. We will follow up on cultures. We will continue to manage the patient. LENNYD
[2018-03-13] MEDS: Aspirin 81 mg Enteric Coated Tablet PO SCH (09:08)
[2018-03-13] MEDS: Famotidine/PF 20 mg/2ml Vial SLOW IVP SCH ×2 (09:08→20:50)
[2018-03-13] MEDS: Famotidine 20 MG TAB PO SCH ×2 (09:08→20:49)
[2018-03-13] MEDS: Lisinopril 5 MG TAB PO SCH (09:08)
[2018-03-13] MEDS: Enoxaparin Sodium 40 MG/0.4 ML SYRINGE SC SCH (09:10)
[2018-03-13] MEDS: HumaLOG 300 UNITS/3 ML VIAL SC PRN ×2 (09:10→11:42)
--- NOTE | 2018-03-13 14:32 | PDOC.PN ---
- Subjective Encounter Start Date: 03/13/18 Encounter Start Time: 14:28 Mr. Fu was seen today in follow-up of CHF exacerbation and cellulitis. He says he continues to have pain in the left leg. He is breathing better. - Objective Resuscitation Status: Resuscitation Status FULL:Full Resuscitation MAR Reviewed: Yes Vital Signs & Weight: Vital Signs (12 hours) Temp Pulse Resp BP BP Pulse Ox 03/13/18 09:08 81 132/70 03/13/18 08:55 97.5 F L 81 20 132/70 95 03/13/18 03:15 98.3 F 96 26 H 153/84 H 93 L Weight Weight 296 lb 1 oz I&O: 03/12/18 03/13/18 03/14/18 06:59 06:59 06:59 Intake Total 600 Balance 600 Result Diagrams: 03/13/18 04:18 03/13/18 04:18 Additional Labs: Accuchecks 03/13/18 03/13/18 03/12/18 11:00 06:25 22:40 POC Glucose 214 H 201 H 182 H Phys Exam - Physical Examination HEENT: PERRLA Respiratory: no wheezing, no rhonchi + bilateral rales Cardiovascular: RRR, no significant murmur, no rub Gastrointestinal: soft, non-tender, no distention, positive bowel sounds Musculoskeletal: edema present + chronic venous stasis changes and erythema of both lower extremites, and warmth to both lower extremities, and oozing for the left leg pulses are dimished bilaterally Skin: normal turgor, cap refill <2 seconds Dx/Plan (1) Acute on chronic combined systolic and diastolic congestive heart failure Code(s): I50.43 - ACUTE ON CHRONIC COMBINED SYSTOLIC AND DIASTOLIC HRT FAIL Status: Acute Comment: Pt responding well to IV diuretics, likely transition to oral diuretics tomorrow (2) Cellulitis of leg, left Code(s): L03.116 - CELLULITIS OF LEFT LOWER LIMB Status: Acute (3) Diabetes mellitus type 2 in obese Code(s): E11.69 - TYPE 2 DIABETES MELLITUS WITH OTHER SPECIFIED COMPLICATION; E66.9 - OBESITY, UNSPECIFIED Status: Chronic (4) HTN (hypertension) Code(s): I10 - ESSENTIAL (PRIMARY) HYPERTENSION Status: Chronic Qualifiers: Hypertension type: essential hypertension Qualified Code(s): I10 - Essential (primary) hypertension Comment: Monitor vital signs, titrate antihypertensives as needed (5) Morbid obesity with BMI of 45.0-49.9, adult Code(s): E66.01 - MORBID (SEVERE) OBESITY DUE TO EXCESS CALORIES; Z68.42 - BODY MASS INDEX (BMI) 45.0-49.9, ADULT Status: Chronic - Plan * Acute on chronic combined CHF- continue IV Lasix, and .continue Lisinopril. Echo is pending * Cellulitis of the left leg- continue Zosyn and Vancomycin- culture the wound if not yet done, and continue local wound care * HTN- blood pressure is slightly elevated- continue home medications, and monitor the trend * DM- blood glucose is uncontrolled- will re-start his home medications, and continue SSI
--- NOTE | 2018-03-13 15:54 | PDOC.PN ---
- Subjective Encounter Start Date: 03/13/18 Encounter Start Time: 15:52 Mr. Fu was seen today in follow-up of Diverticulitis. He says the abdominal pain has improved. - Objective Resuscitation Status: Resuscitation Status FULL:Full Resuscitation MAR Reviewed: Yes Vital Signs & Weight: Vital Signs (12 hours) Temp Pulse Resp BP BP BP Pulse Ox 03/13/18 11:35 97.6 F 81 22 H 131/69 92 L 03/13/18 09:08 81 132/70 03/13/18 08:55 97.5 F L 81 20 132/70 95 Weight Admit Weight 296 lb 5 oz Weight 296 lb 1 oz I&O: 03/12/18 03/13/18 03/14/18 06:59 06:59 06:59 Intake Total 840 Balance 840 Result Diagrams: 03/13/18 04:18 03/13/18 04:18 Additional Labs: Accuchecks 03/13/18 03/13/18 03/12/18 11:00 06:25 22:40 POC Glucose 214 H 201 H 182 H Phys Exam - Physical Examination HEENT: PERRLA Respiratory: no wheezing, no rales, no rhonchi, clear to auscultation bilateral Cardiovascular: RRR, no significant murmur, no rub Gastrointestinal: soft + mild right lower abdominal tenderness Musculoskeletal: no edema Dx/Plan (1) Acute on chronic combined systolic and diastolic congestive heart failure Code(s): I50.43 - ACUTE ON CHRONIC COMBINED SYSTOLIC AND DIASTOLIC HRT FAIL Status: Acute Comment: Pt responding well to IV diuretics, likely transition to oral diuretics tomorrow (2) Cellulitis of leg, left Code(s): L03.116 - CELLULITIS OF LEFT LOWER LIMB Status: Acute (3) Diabetes mellitus type 2 in obese Code(s): E11.69 - TYPE 2 DIABETES MELLITUS WITH OTHER SPECIFIED COMPLICATION; E66.9 - OBESITY, UNSPECIFIED Status: Chronic (4) HTN (hypertension) Code(s): I10 - ESSENTIAL (PRIMARY) HYPERTENSION Status: Chronic Qualifiers: Hypertension type: essential hypertension Qualified Code(s): I10 - Essential (primary) hypertension Comment: Monitor vital signs, titrate antihypertensives as needed (5) Morbid obesity with BMI of 45.0-49.9, adult Code(s): E66.01 - MORBID (SEVERE) OBESITY DUE TO EXCESS CALORIES; Z68.42 - BODY MASS INDEX (BMI) 45.0-49.9, ADULT Status: Chronic - Plan * .
[2018-03-13] MEDS: Atorvastatin Calcium 40 MG TAB PO SCH (20:49)
--- NOTE | 2018-03-14 00:49 | CON ---
DATE OF CONSULTATION: 03/13/2018 HISTORY: Thomas Fu is a 62-year-old male who is extremely noncompliant, never coming for followup, and also frequently runs out of his medicines. He apparently had bypass surgery approximately 14 years ago in [place]. He has had severe ischemic cardiomyopathy here with most recent echo in 11/2017, which revealed ejection fraction of 25%-30%. He has repeatedly refused ICD in the past. His last admission was in 12/2017. He now states that he ran out of his medications, 3 days ago. Two days ago, he started having increased shortness of breath, ultimately he came to the emergency room. He denies any chest pain. PAST MEDICAL HISTORY: Severe ischemic cardiomyopathy, diabetes, hyperlipidemia , hypertension, morbid obesity, poor compliance, poor dentition, history of facial cellulitis. MEDICATIONS: When he was last discharged include aspirin 81 daily, atorvastatin 40 daily, calcium carbonate q.4 hours, carvedilol 3.125 b.i.d., furosemide 40 b.i.d., Novolin 70/30 of 13 units q.a.c., lisinopril 5 daily, metformin 500 mg b.i.d., metoprolol 25 daily, nitroglycerin p.r.n. ALLERGIES: None. OPERATIONS: CABG. SOCIAL HISTORY: Patient quit smoking six years ago. Does not drink. REVIEW OF SYSTEMS: Twelve-point review of systems unremarkable except for leg pain from ulcers due to edema. PHYSICAL EXAMINATION: VITAL SIGNS: 129/80, pulse 77. HEENT: PERRL. NECK: Supple. CHEST: Reveals crackles at the bases. CARDIAC: S1 and S2 are normal without any S3, S4 or murmurs. ABDOMEN: Normal bowel sounds. EXTREMITIES: Revealed 2+ pretibial edema with ulcers of both legs. NEUROLOGIC: Grossly intact. IMPRESSION: 1. Acute on chronic systolic heart failure with ejection fraction of 25%-30%. 2. Noncompliance. 3. Patient has declined ICD on multiple occasions. 4. Status post coronary artery bypass graft. 5. Hypertension. 6. Diabetes. 7. Hyperlipidemia. 8. Smoker in the past. 9. Morbid obesity. 10. History of facial cellulitis. 11. History of left axillary abscess. 12. History of ETOH abuse. 13. History of delusions and psychosis. 14. Lower extremity cellulitis. PLAN: Patient will be restarted on his usual medicines and diuresed. He certainly is a significant social problem with him frequently running out of medications and coming to the hospital when he does. INEZ
[2018-03-14 03:33] LABS: Vancomycin, Trough 25.4 ug/mL
[2018-03-14 04:00] LABS: BUN (Urea Nitrogen) 16 mg/dL (8.4-25.7); Calc. Creatinine Clearance 156 mL/min (70-130); Calcium 8.7 mg/dL (7.8-10.44); Carbon Dioxide 28 mmol/L (23-31); Estimated GFR-MDRD 82; Glucose 173 mg/dL (80-115)
[2018-03-14 04:10] LABS: Anion Gap 13 mmol/L (10-20); Chloride 101 mmol/L (98-107); Sodium 136 mmol/L (136-145)
[2018-03-14] MEDS: Furosemide 40 MG/4 ML VIAL SLOW IVP SCH ×2 (06:53→14:56)
[2018-03-14] MEDS: Piperacillin/Tazobactam 4.5 GM in Sodium Chloride 0.9% 100 ML IVPB SCH ×4 (06:53→23:35)
[2018-03-14] MEDS: Famotidine 20 MG TAB PO SCH ×2 (09:39→20:26)
[2018-03-14] MEDS: Lisinopril 5 MG TAB PO SCH (09:39)
[2018-03-14] MEDS: Enoxaparin Sodium 40 MG/0.4 ML SYRINGE SC SCH (09:39)
[2018-03-14] MEDS: Aspirin 81 mg Enteric Coated Tablet PO SCH (09:39)
[2018-03-14] MEDS: Famotidine/PF 20 mg/2ml Vial SLOW IVP SCH ×2 (09:40→20:26)
--- NOTE | 2018-03-14 11:02 | PQF ---
CLINICAL DOCUMENTATION IMPROVEMENT CLARIFICATION FORM: ICD-10 Updated PLEASE DO AN ADDENDUM TO THE PROGRESS NOTE WITH ANY DOCUMENTATION UPDATES OR ADDITIONS AND CARRY THROUGH TO DC SUMMARY. THANK YOU. DATE: 03/14/18 ATTN: Dr. Presley Please exercise your independent, professional judgment in responding to the clarification form. Clinical indicators are provided on the bottom of this form for your review Please check appropriate box(s): [X ] Acute Respiratory Failure: [ X ] with Hypoxia [ ] with Hypercapnia [ ] Acute Respiratory Failure due to: [ ] Acute On Chronic Respiratory Failure: [ ] with Hypoxia [ ] with Hypercapnia [ ] Other diagnosis [ ] Unable to determine In addition, please specify: Present on Admission (POA): [ X] Yes [ ] No [ ] Unable to determine For continuity of documentation, please document condition throughout progress notes and discharge summary. Thank You. CLINICAL INDICATORS - SIGNS / SYMPTOMS / LABS H&P 03/12: IN THE ED, PT'S OXYGENATION IS 86 ON ROOM AIR. PT IS HYPERTENSIVE AND TACHYPNEIC AT 32. RISKS: H&P 03/12: ADMITTED FOR SOB DUE TO ACUTE ON CHRONIC SYSTOLIC CHF EXACERBATION. TREATMENT: ORDER 03/13: NURSING: O2 TO KEEP SATS > 92% ORDER 03/13: IV LASIX 40 MG 0600, 1400. Thank you, Latoya (This form is maintained as a part of the permanent medical record) 2014 [email or web address]. All Rights Reserved Latoya Mason RN, BSN [email or web address] Office: [phone] [facility]
[2018-03-14] MEDS: HumaLOG 300 UNITS/3 ML VIAL SC PRN (11:45)
--- NOTE | 2018-03-14 15:23 | PDOC.PN ---
- Subjective Encounter Start Date: 03/14/18 Encounter Start Time: 15:21 Mr. Fu was seen today in follow-up of CHF exacerbation and cellulitis. He says he is beginning to feel better. He is breathing better. He denies chest pain or shortness of breath. - Objective Resuscitation Status: Resuscitation Status FULL:Full Resuscitation MAR Reviewed: Yes Vital Signs & Weight: Vital Signs (12 hours) Temp Pulse Pulse Pulse Resp BP BP 03/14/18 12:14 97.8 F 72 18 03/14/18 12:11 74 82 136/64 141/68 H 03/14/18 09:39 70 03/14/18 08:00 98.4 F 70 20 BP BP Pulse Ox Pulse Ox Pulse Ox 03/14/18 12:14 136/70 94 L 03/14/18 12:11 94 L 98 03/14/18 09:39 03/14/18 08:00 122/68 92 L Weight Admit Weight 296 lb 5 oz Weight 300 lb 12.8 oz I&O: 03/13/18 03/14/18 03/15/18 06:59 06:59 06:59 Intake Total 2780 Output Total 2125 Balance 655 Result Diagrams: 03/13/18 04:18 03/14/18 02:58 Additional Labs: Accuchecks 03/14/18 03/13/18 03/13/18 11:14 20:16 16:48 POC Glucose 229 H 186 H 119 H Phys Exam - Physical Examination HEENT: PERRLA Respiratory: no wheezing, no rhonchi, clear to auscultation bilateral + rales at the bases Cardiovascular: RRR, no significant murmur, no rub Gastrointestinal: soft, non-tender, no distention, positive bowel sounds Musculoskeletal: edema present + bilateral lower extremity edema, mild erythema, and warmth, both improving Neurological: non-focal, moves all 4 limbs Dx/Plan (1) Acute on chronic combined systolic and diastolic congestive heart failure Code(s): I50.43 - ACUTE ON CHRONIC COMBINED SYSTOLIC AND DIASTOLIC HRT FAIL Status: Acute Comment: Pt responding well to IV diuretics, likely transition to oral diuretics tomorrow (2) Cellulitis of leg, left Code(s): L03.116 - CELLULITIS OF LEFT LOWER LIMB Status: Acute (3) Diabetes mellitus type 2 in obese Code(s): E11.69 - TYPE 2 DIABETES MELLITUS WITH OTHER SPECIFIED COMPLICATION; E66.9 - OBESITY, UNSPECIFIED Status: Chronic (4) HTN (hypertension) Code(s): I10 - ESSENTIAL (PRIMARY) HYPERTENSION Status: Chronic Qualifiers: Hypertension type: essential hypertension Qualified Code(s): I10 - Essential (primary) hypertension Comment: Monitor vital signs, titrate antihypertensives as needed (5) Morbid obesity with BMI of 45.0-49.9, adult Code(s): E66.01 - MORBID (SEVERE) OBESITY DUE TO EXCESS CALORIES; Z68.42 - BODY MASS INDEX (BMI) 45.0-49.9, ADULT Status: Chronic - Plan * Acute on chronic combined CHF- continue IV Lasix, and monitor electrolyes. Cardiology input appreciated. Patient has a history of non-compliance with medications * Cellulitis- continue IV antibiotics, and consider transition to oral in a day or two * DM- blood glucose is stable- re-start Metformin * HTN- blood pressure is stable
[2018-03-14] MEDS: metFORMIN 500 MG TAB PO SCH (17:24)
[2018-03-14] MEDS: Carvedilol 3.125 MG TAB PO SCH (17:24)
[2018-03-14] MEDS: Atorvastatin Calcium 40 MG TAB PO SCH (20:26)
[2018-03-15] MEDS: Vancomycin HCl 1.5 GM in Sodium Chloride 0.9% 250 ML 300 ML IVPB SCH ×2 (03:18→16:58)
[2018-03-15] MEDS: Piperacillin/Tazobactam 4.5 GM in Sodium Chloride 0.9% 100 ML IVPB SCH ×4 (05:16→23:15)
[2018-03-15] MEDS: Furosemide 40 MG/4 ML VIAL SLOW IVP SCH ×2 (06:07→13:59)
[2018-03-15 07:05] LABS: Anion Gap 13 mmol/L (10-20); BUN (Urea Nitrogen) 21 mg/dL (8.4-25.7); Calc. Creatinine Clearance 108 mL/min (70-130); Calcium 8.8 mg/dL (7.8-10.44); Carbon Dioxide 26 mmol/L (23-31); Chloride 100 mmol/L (98-107); Estimated GFR-MDRD 56; Glucose 140 mg/dL (80-115); Sodium 135 mmol/L (136-145)
[2018-03-15] MEDS: Famotidine 20 MG TAB PO SCH ×2 (08:48→20:51)
[2018-03-15] MEDS: metFORMIN 500 MG TAB PO SCH ×2 (08:48→17:02)
[2018-03-15] MEDS: Lisinopril 5 MG TAB PO SCH (08:48)
[2018-03-15] MEDS: Aspirin 81 mg Enteric Coated Tablet PO SCH (08:48)
[2018-03-15] MEDS: Carvedilol 3.125 MG TAB PO SCH ×2 (08:48→17:01)
[2018-03-15] MEDS: Enoxaparin Sodium 40 MG/0.4 ML SYRINGE SC SCH (08:49)
--- NOTE | 2018-03-15 10:22 | PDOC.PN ---
- Subjective Encounter Start Date: 03/15/18 Encounter Start Time: 10:20 Mr. Fu was seen today in follow-up of CHF exacerbation and Cellulitis of the L Leg. He says his leg is hurting a little more today than yesterday. He denies feeling short of breath. - Objective Resuscitation Status: Resuscitation Status FULL:Full Resuscitation MAR Reviewed: Yes Vital Signs & Weight: Vital Signs (12 hours) Temp Pulse Resp BP Pulse Ox 03/15/18 08:00 98.3 F 68 20 113/56 L 96 03/15/18 04:00 97.5 F L 64 20 112/62 97 Weight Admit Weight 296 lb 5 oz Weight 286 lb I&O: 03/14/18 03/15/18 03/16/18 06:59 06:59 06:59 Intake Total 2780 1915 Output Total 2125 1860 650 Balance 655 55 650 Result Diagrams: 03/13/18 04:18 03/15/18 05:39 Additional Labs: Accuchecks 03/15/18 03/14/18 03/14/18 05:43 20:28 16:48 POC Glucose 152 H 201 H 141 H 03/14/18 03/14/18 11:14 05:44 POC Glucose 229 H 142 H Phys Exam - Physical Examination Respiratory: no wheezing, no rhonchi, clear to auscultation bilateral clear with the excaetion of a few ralses at the bases Cardiovascular: RRR, no significant murmur, no rub Gastrointestinal: soft, non-tender, no distention, positive bowel sounds Musculoskeletal: edema present + pitting edema of both lower extremities, and chronic venous stasis change L Leg with oozing, and point tenderness posteriorly, some mild induration Neurological: non-focal, moves all 4 limbs Dx/Plan (1) Acute on chronic combined systolic and diastolic congestive heart failure Code(s): I50.43 - ACUTE ON CHRONIC COMBINED SYSTOLIC AND DIASTOLIC HRT FAIL Status: Acute Comment: Pt responding well to IV diuretics, likely transition to oral diuretics tomorrow (2) Cellulitis of leg, left Code(s): L03.116 - CELLULITIS OF LEFT LOWER LIMB Status: Acute (3) Diabetes mellitus type 2 in obese Code(s): E11.69 - TYPE 2 DIABETES MELLITUS WITH OTHER SPECIFIED COMPLICATION; E66.9 - OBESITY, UNSPECIFIED Status: Chronic (4) HTN (hypertension) Code(s): I10 - ESSENTIAL (PRIMARY) HYPERTENSION Status: Chronic Qualifiers: Hypertension type: essential hypertension Qualified Code(s): I10 - Essential (primary) hypertension Comment: Monitor vital signs, titrate antihypertensives as needed (5) Morbid obesity with BMI of 45.0-49.9, adult Code(s): E66.01 - MORBID (SEVERE) OBESITY DUE TO EXCESS CALORIES; Z68.42 - BODY MASS INDEX (BMI) 45.0-49.9, ADULT Status: Chronic - Plan * Acute on chronic systolic heart failure-he is diuresing well. His weight has gone down to 286 from 300. * Echo results noted. His EF is very low- Apparently he has refused Life Vest in the past, and has a history of medical non-compliance. * Left Leg cellulitis- continue Zosyn and Vancomycin. Culture from the wound is growing gram negative rods. Will de-escalate antibiotics once final culture results are available * DM- controlled, continue SSI * Ambulate as tolerated.
[2018-03-15] MEDS: HumaLOG 300 UNITS/3 ML VIAL SC PRN (12:48)
[2018-03-15] MEDS: Atorvastatin Calcium 40 MG TAB PO SCH (20:51)
[2018-03-15] MEDS ORDERED: Amiodarone HCl 450 MG, Admixture Fee 1 EACH in Dextrose 5% in Water 250 ML IVPB SCH (23:00)
[2018-03-15] MEDS ORDERED: Amiodarone HCl 150 MG, Admixture Fee 1 EACH in Dextrose 5% in Water 100 ML IVPB SCH (23:00)
[2018-03-15 23:25] LABS: ALT (SGPT) 9 U/L (8-55); AST (SGOT) 20 U/L (5-34); Albumin 2.7 g/dL (3.4-4.8); Alkaline Phosphatase 113 U/L (40-150); Bilirubin, Direct 0.4 mg/dL (0.1-0.3); Bilirubin, Total 0.6 mg/dL (0.2-1.2); Magnesium 1.5 mg/dL (1.6-2.6); Protein, Total 6.9 g/dL (5.8-8.1)
[2018-03-16] MEDS: Vancomycin HCl 1.5 GM in Sodium Chloride 0.9% 250 ML 300 ML IVPB SCH ×2 (04:23→17:00)
[2018-03-16 05:40] LABS: Anion Gap 13 mmol/L (10-20); BUN (Urea Nitrogen) 22 mg/dL (8.4-25.7); Calc. Creatinine Clearance 102 mL/min (70-130); Calcium 8.8 mg/dL (7.8-10.44); Carbon Dioxide 24 mmol/L (23-31); Chloride 101 mmol/L (98-107); Estimated GFR-MDRD 51; Glucose 169 mg/dL (80-115); Potassium 3.9 mmol/L (3.5-5.1); Sodium 134 mmol/L (136-145)
[2018-03-16] MEDS: Piperacillin/Tazobactam 4.5 GM in Sodium Chloride 0.9% 100 ML IVPB SCH ×4 (06:04→22:57)
[2018-03-16] MEDS: Furosemide 40 MG/4 ML VIAL SLOW IVP SCH ×2 (06:07→15:20)
[2018-03-16] MEDS: Aspirin 81 mg Enteric Coated Tablet PO SCH (09:57)
[2018-03-16] MEDS: Lisinopril 5 MG TAB PO SCH (09:57)
[2018-03-16] MEDS: metFORMIN 500 MG TAB PO SCH ×2 (09:57→17:35)
[2018-03-16] MEDS: Carvedilol 3.125 MG TAB PO SCH ×2 (09:57→17:36)
[2018-03-16] MEDS: Famotidine 20 MG TAB PO SCH ×2 (09:57→20:30)
--- NOTE | 2018-03-16 11:43 | PDOC.PN ---
- Subjective Encounter Start Date: 03/16/18 Encounter Start Time: 11:41 Mr. Fu was seen today in follow-up of CHF exacerbation and cellulitis of the left leg. He does not note much improvement in the swelling and pain in his leg - Objective Resuscitation Status: Resuscitation Status FULL:Full Resuscitation MAR Reviewed: Yes Vital Signs & Weight: Vital Signs (12 hours) Temp Pulse Resp BP Pulse Ox 03/16/18 09:57 65 03/16/18 07:05 97.6 F 62 18 118/72 99 03/16/18 04:00 97.9 F 63 17 110/55 L 97 Weight Admit Weight 296 lb 5 oz Weight 295 lb I&O: 03/15/18 03/16/18 03/17/18 06:59 06:59 06:59 Intake Total 1915 1900 Output Total 1860 950 Balance 55 950 Result Diagrams: 03/13/18 04:18 03/16/18 04:59 Additional Labs: Accuchecks 03/16/18 03/15/18 03/15/18 05:50 20:35 17:01 POC Glucose 148 H 186 H 167 H Phys Exam - Physical Examination HEENT: PERRLA, sclera anicteric Respiratory: no wheezing, no rales, no rhonchi, clear to auscultation bilateral Cardiovascular: RRR, no significant murmur, no rub no gallop Gastrointestinal: soft, non-tender, no distention, positive bowel sounds Musculoskeletal: pulses present, edema present + chronic venous stasis changes, and 2 + edema, + several open areas in the Neurological: non-focal, moves all 4 limbs Psychiatric: normal affect, A&O x 3 Dx/Plan (1) Acute on chronic combined systolic and diastolic congestive heart failure Code(s): I50.43 - ACUTE ON CHRONIC COMBINED SYSTOLIC AND DIASTOLIC HRT FAIL Status: Acute Comment: Pt responding well to IV diuretics, likely transition to oral diuretics tomorrow (2) Cellulitis of leg, left Code(s): L03.116 - CELLULITIS OF LEFT LOWER LIMB Status: Acute (3) Diabetes mellitus type 2 in obese Code(s): E11.69 - TYPE 2 DIABETES MELLITUS WITH OTHER SPECIFIED COMPLICATION; E66.9 - OBESITY, UNSPECIFIED Status: Chronic (4) HTN (hypertension) Code(s): I10 - ESSENTIAL (PRIMARY) HYPERTENSION Status: Chronic Qualifiers: Hypertension type: essential hypertension Qualified Code(s): I10 - Essential (primary) hypertension Comment: Monitor vital signs, titrate antihypertensives as needed (5) Morbid obesity with BMI of 45.0-49.9, adult Code(s): E66.01 - MORBID (SEVERE) OBESITY DUE TO EXCESS CALORIES; Z68.42 - BODY MASS INDEX (BMI) 45.0-49.9, ADULT Status: Chronic - Plan * Acute on chronic combined CHF- better compensated- continue IV Lasix. Continue to monitor electrolytes * Severe Low EF- he had some evidence of VTACH last night- will re-consult Cardiology- ? AICD * Cellulitis of the left leg- continue IV Zosyn and Vancomycin- wound culture is growing 2 gram negative rods. ID and sensitivities are pending * DM- still poorly controlled- will add a low dose long acting insulin * HTN- blood pressure is stable
[2018-03-16] MEDS: Enoxaparin Sodium 40 MG/0.4 ML SYRINGE SC SCH (11:59)
[2018-03-16] MEDS ORDERED: Potassium Chloride 20 MEQ TAB PO SCH (12:00)
[2018-03-16] MEDS: HumaLOG 300 UNITS/3 ML VIAL SC PRN (12:15)
[2018-03-16 16:37] LABS: Vancomycin, Trough 40.7 ug/mL
[2018-03-16] MEDS: Atorvastatin Calcium 40 MG TAB PO SCH (20:30)
[2018-03-16] MEDS: Insulin Glargine 12 UNITS in Pre-Filled Syringe SC SCH (20:45)
[2018-03-17] MEDS: Furosemide 40 MG/4 ML VIAL SLOW IVP SCH ×2 (05:40→14:46)
[2018-03-17] MEDS: Piperacillin/Tazobactam 4.5 GM in Sodium Chloride 0.9% 100 ML IVPB SCH ×2 (05:40→12:05)
[2018-03-17 06:50] LABS: Anion Gap 15 mmol/L (10-20); BUN (Urea Nitrogen) 23 mg/dL (8.4-25.7); Calc. Creatinine Clearance 96 mL/min (70-130); Calcium 9.2 mg/dL (7.8-10.44); Carbon Dioxide 23 mmol/L (23-31); Chloride 100 mmol/L (98-107); Estimated GFR-MDRD 47; Glucose 178 mg/dL (80-115); Potassium 4.1 mmol/L (3.5-5.1); Sodium 134 mmol/L (136-145)
[2018-03-17] MEDS: HumaLOG 300 UNITS/3 ML VIAL SC PRN ×2 (08:11→12:05)
[2018-03-17] MEDS: Carvedilol 3.125 MG TAB PO SCH ×2 (09:11→18:12)
[2018-03-17] MEDS: metFORMIN 500 MG TAB PO SCH ×2 (09:12→18:12)
[2018-03-17] MEDS: Aspirin 81 mg Enteric Coated Tablet PO SCH (09:15)
[2018-03-17] MEDS: Famotidine 20 MG TAB PO SCH ×2 (09:15→20:50)
[2018-03-17] MEDS: Lisinopril 5 MG TAB PO SCH (09:15)
[2018-03-17 11:02] LABS: #Basophils 0.1 thou/uL (0.0-0.2); #Eosinphils 0.3 thou/uL (0.0-0.7); #Lymphocytes 0.9 thou/uL (1.20-3.40); #Monocytes 0.7 thou/uL (0.11-0.59); #Neutrophils 3.8 thou/uL (1.40-6.50); %Basophils 0.9 % (0.0-1.0); %Eosinophils 5.9 % (0.0-10.0); %Lymphocytes 16.1 % (21.0-51.0); %Monocytes 12.1 % (0.0-10.0); %Neutrophils 64.9 % (42.0-75.0); Hemoglobin 12.7 g/dL (14.0-18.0); Mean Corpuscular Hemoglobin 27.3 pg (27.0-31.0); Mean Corpuscular Volume 88.1 fL (78.0-98.0); Mean Platelet Volume 8.8 fL (7.4-10.4); Platelet Count 190 thou/uL (130-400); RBC Distribution Width 16.3 % (11.5-14.5); Red Blood Cell (RBC) Count 4.66 mill/uL (4.70-6.10); White Blood Cell (WBC) Count 5.9 thou/uL (4.8-10.8)
[2018-03-17] MEDS: Enoxaparin Sodium 40 MG/0.4 ML SYRINGE SC SCH (12:04)
--- NOTE | 2018-03-17 14:19 | PDOC.PN ---
- Subjective Encounter Start Date: 03/17/18 Encounter Start Time: 11:00 Mr. Fu was seen today in follow-up for CHF exacerbation and Cellulitis. He denies dyspnea, but complains of continued pain in the left leg. - Objective Resuscitation Status: Resuscitation Status FULL:Full Resuscitation MAR Reviewed: Yes Vital Signs & Weight: Vital Signs (12 hours) Temp Pulse Resp BP Pulse Ox 03/17/18 12:16 98 F 69 18 142/77 H 94 L 03/17/18 09:15 75 03/17/18 08:17 97.8 F 75 20 152/79 H 94 L 03/17/18 04:00 97.7 F 68 20 138/59 L 96 Weight Admit Weight 296 lb 5 oz Weight 298 lb I&O: 03/16/18 03/17/18 03/18/18 06:59 06:59 06:59 Intake Total 1900 2000 Output Total 950 2445 Balance 950 -445 Result Diagrams: 03/17/18 10:53 03/17/18 05:24 Additional Labs: Accuchecks 03/17/18 03/17/18 03/16/18 11:04 05:48 20:44 POC Glucose 223 H 243 H 191 H 03/16/18 03/16/18 20:37 16:30 POC Glucose 211 H 146 H Phys Exam - Physical Examination HEENT: PERRLA Respiratory: no wheezing, no rales, no rhonchi, clear to auscultation bilateral Cardiovascular: RRR, no significant murmur, no rub Gastrointestinal: soft, non-tender, no distention, positive bowel sounds Musculoskeletal: pulses present, edema present + chronic venous stasis changes, mild erythema of the left leg, with some open areas oozing clear serous drainage Dx/Plan (1) Acute on chronic combined systolic and diastolic congestive heart failure Code(s): I50.43 - ACUTE ON CHRONIC COMBINED SYSTOLIC AND DIASTOLIC HRT FAIL Status: Acute Comment: Pt responding well to IV diuretics, likely transition to oral diuretics tomorrow (2) Cellulitis of leg, left Code(s): L03.116 - CELLULITIS OF LEFT LOWER LIMB Status: Acute (3) Diabetes mellitus type 2 in obese Code(s): E11.69 - TYPE 2 DIABETES MELLITUS WITH OTHER SPECIFIED COMPLICATION; E66.9 - OBESITY, UNSPECIFIED Status: Chronic (4) HTN (hypertension) Code(s): I10 - ESSENTIAL (PRIMARY) HYPERTENSION Status: Chronic Qualifiers: Hypertension type: essential hypertension Qualified Code(s): I10 - Essential (primary) hypertension Comment: Monitor vital signs, titrate antihypertensives as needed (5) Morbid obesity with BMI of 45.0-49.9, adult Code(s): E66.01 - MORBID (SEVERE) OBESITY DUE TO EXCESS CALORIES; Z68.42 - BODY MASS INDEX (BMI) 45.0-49.9, ADULT Status: Chronic - Plan * Acute on chronic combined heart failure- improving- continue IV Lasix a 1-2 more days * He has been re-evaluated by Cardiology due to his severely depressed EF- He has once again refused AICD placement * Cellulitis- wound culture is growing Serratia, and 2 other unidentified gram negative rods. The serratia is sensitive to Quinolones- will change to Levaquin , and monitor for stability on this antibiotic, then consider discharge home in a few days * DM- diabetes is better controlled after the addition of Lantus * I attempted to call his daughter to update her on the patient's condition, as well as his refusal of the AICD. When I called ) It went to voicemail, and I could not leave a message because it said the mailbox was full. * .
[2018-03-17] MEDS: Insulin Glargine 12 UNITS in Pre-Filled Syringe SC SCH (20:49)
[2018-03-17] MEDS: Atorvastatin Calcium 40 MG TAB PO SCH (20:50)
[2018-03-18] MEDS: Furosemide 40 MG/4 ML VIAL SLOW IVP SCH ×2 (06:29→15:25)
[2018-03-18 06:47] LABS: Anion Gap 14 mmol/L (10-20); BUN (Urea Nitrogen) 21 mg/dL (8.4-25.7); Calc. Creatinine Clearance 114 mL/min (70-130); Calcium 9.1 mg/dL (7.8-10.44); Carbon Dioxide 23 mmol/L (23-31); Chloride 101 mmol/L (98-107); Estimated GFR-MDRD 57; Glucose 122 mg/dL (80-115); Potassium 3.8 mmol/L (3.5-5.1); Sodium 134 mmol/L (136-145)
[2018-03-18 06:51] LABS: Vancomycin, Random 16.1 ug/mL (See Comment)
[2018-03-18] MEDS: Lisinopril 5 MG TAB PO SCH (09:51)
[2018-03-18] MEDS: Aspirin 81 mg Enteric Coated Tablet PO SCH (09:51)
[2018-03-18] MEDS: metFORMIN 500 MG TAB PO SCH ×2 (09:51→17:23)
[2018-03-18] MEDS: Carvedilol 3.125 MG TAB PO SCH ×2 (09:51→17:23)
[2018-03-18] MEDS: Enoxaparin Sodium 40 MG/0.4 ML SYRINGE SC SCH (09:51)
[2018-03-18] MEDS: Famotidine 20 MG TAB PO SCH ×2 (09:51→21:09)
[2018-03-18] MEDS: Vancomycin HCl 1.5 GM in Sodium Chloride 0.9% 250 ML 300 ML IVPB SCH (09:52)
--- NOTE | 2018-03-18 11:35 | EKG ---
Test Reason : Blood Pressure : / mmHG Vent. Rate : 097 BPM Atrial Rate : 097 BPM P-R Int : 164 ms QRS Dur : 100 ms QT Int : 376 ms P-R-T Axes : 056 -36 156 degrees QTc Int : 477 ms Normal sinus rhythm Left axis deviation Prolonged QT Abnormal ECG Confirmed by HAZEL SCHAFFER DO ([id number]), editor school photograph ALBIN HOLLEY ([id number]) on 03/18/2018 11:35:31 AM Referred By: Confirmed By:HAZEL SCHAFFER DO
--- NOTE | 2018-03-18 17:23 | PDOC.PN ---
- Subjective Encounter Start Date: 03/18/18 Encounter Start Time: 17:21 Subjective: nsg notes rev, kobe ovn, no new c/o, still has some pain in that LLE - Objective Resuscitation Status: Resuscitation Status FULL:Full Resuscitation Vital Signs & Weight: Vital Signs (12 hours) Temp Pulse Pulse Pulse Resp BP BP 03/18/18 12:42 68 64 144/69 H 03/18/18 12:40 97.4 F L 62 20 03/18/18 09:51 61 140/76 03/18/18 07:50 97.4 F L 61 18 BP BP Pulse Ox Pulse Ox Pulse Ox 03/18/18 12:42 141/72 H 90 L 90 L 03/18/18 12:40 143/76 H 94 L 03/18/18 09:51 03/18/18 07:50 140/76 93 L Weight Admit Weight 296 lb 5 oz Weight 291 lb 4.8 oz I&O: 03/17/18 03/18/18 03/19/18 06:59 06:59 06:59 Intake Total 1999 1520 Output Total 2445 3200 Balance -445 -1680 Result Diagrams: 03/17/18 10:53 03/18/18 05:37 Additional Labs: Accuchecks 03/18/18 03/18/18 03/17/18 10:47 05:59 20:43 POC Glucose 194 H 120 H 184 H 03/17/18 17:02 POC Glucose 139 H Phys Exam - Physical Examination seated on the EOB Dx/Plan - Plan HEENT: PERRLA Respiratory: no wheezing, no rales, no rhonchi, clear to auscultation bilateral Cardiovascular: RRR, no significant murmur, no rub Gastrointestinal: soft, non-tender, no distention, positive bowel sounds Musculoskeletal: pulses present, edema present + chronic venous stasis changes, mild erythema of the left leg, patch covering previously described open wound not opened by myself for examination as it was just placed. wound photos reviewed Dx/Plan (1) Acute on chronic combined systolic and diastolic congestive heart failure Code(s): I50.43 - ACUTE ON CHRONIC COMBINED SYSTOLIC AND DIASTOLIC HRT FAIL Status: Acute Comment: Pt responding well to diuretics, transition to oral diuretics improving clinically apprec card c/s has been recommended for AICD and declined (2) Cellulitis of leg, left Code(s): L03.116 - CELLULITIS OF LEFT LOWER LIMB Status: Acute wound culture is growing Serratia, and 2 other unidentified gram negative rods. currently on IV levaquin - will re-assess for clinical improvement prior to transition to oral and d/c due to pain, will add prn acetaminophen, ibuprofen, tramadol (3) Diabetes mellitus type 2 in obese Code(s): E11.69 - TYPE 2 DIABETES MELLITUS WITH OTHER SPECIFIED COMPLICATION; E66.9 - OBESITY, UNSPECIFIED Status: Chronic lantus has been added this admission - may need this at discharge (4) HTN (hypertension) Code(s): I10 - ESSENTIAL (PRIMARY) HYPERTENSION Status: Chronic Qualifiers: Hypertension type: essential hypertension Qualified Code(s): I10 - Essential (primary) hypertension Comment: Monitor vital signs, titrate antihypertensives as needed (5) Morbid obesity with BMI of 45.0-49.9, adult Code(s): E66.01 - MORBID (SEVERE) OBESITY DUE TO EXCESS CALORIES; Z68.42 - BODY MASS INDEX (BMI) 45.0-49.9, ADULT Status: Chronic - Plan * d/w pt at bedside Review of Systems - Medications/Allergies Allergies/Adverse Reactions: Allergies Allergy/AdvReac Type Severity Reaction Status Date / Time No Known Drug Allergies Allergy Unknown Verified 12/21/17 02:54 Medications: Current Medications Aspirin (Ecotrin) 81 mg PO DAILY [facility] Last Admin: 03/18/18 09:51 Dose: 81 mg Atorvastatin Calcium (Lipitor) 40 mg PO HS [facility] Last Admin: 03/17/18 20:50 Dose: 40 mg Carvedilol (Coreg) 3.125 mg PO BID-WM [facility] Last Admin: 03/18/18 09:51 Dose: 3.125 mg Dextrose/Water (Dextrose 50%) 25 gm SLOW IVP PRN PRN PRN Reason: Hypoglycemia Enoxaparin Sodium (Lovenox) 40 mg SC 0900 [facility] Last Admin: 03/18/18 09:51 Dose: 40 mg Famotidine (Pepcid) 20 mg PO BID [facility] Last Admin: 03/18/18 09:51 Dose: 20 mg Furosemide (Lasix) 40 mg SLOW IVP 0600,1400 [facility] Last Admin: 03/18/18 15:25 Dose: 40 mg Glucagon (Glucagon) 1 mg IM PRN PRN PRN Reason: Hypoglycemia Dextrose/Water (D5w) 1,000 mls @ 0 mls/hr IV .Q0M PRN PRN Reason: Hypoglycemia Insulin Glargine 12 units/ (Miscellaneous Medication) 0.12 mls @ 0 mls/hr SC HS [facility] Last Admin: 03/17/18 20:49 Dose: 0.12 mls Vancomycin HCl 1.5 gm/ Sodium (Chloride) 300 mls @ 200 mls/hr IVPB Q24HR@0900 [facility] Last Admin: 03/18/18 09:52 Dose: 300 mls Levofloxacin 500 mg/ Device 100 mls @ 100 mls/hr IVPB Q24HR [facility] Last Admin: 03/18/18 15:25 Dose: 100 mls Insulin Human Lispro (Humalog) 0 units SC .MILD SLIDING SCALE PRN PRN Reason: Mild Correctional Scale Last Admin: 03/17/18 12:05 Dose: 3 units Insulin Human Lispro (Humalog) 0 units SC .BEDTIME SLIDING SC PRN PRN Reason: Bedtime Correctional Scale Last Admin: 03/14/18 20:29 Dose: 2 unit Lisinopril (Zestril) 5 mg PO DAILY [facility] Last Admin: 03/18/18 09:51 Dose: 5 mg Metformin HCl (Glucophage) 500 mg PO BID-[facility] Last Admin: 03/18/18 09:51 Dose: 500 mg Miscellaneous Medication (Pharmacy To Dose) 0 each IVPB PRN PRN PRN Reason: VANC/ZOSYN Pharmacy to Dose Sodium Chloride (Flush - Normal Saline) 10 ml IVF Q12HR [facility] Last Admin: 03/18/18 09:52 Dose: 10 ml Sodium Chloride (Flush - Normal Saline) 10 ml IVF PRN PRN PRN Reason: Saline Flush Last Admin: 03/13/18 19:40 Dose: 10 ml
[2018-03-18] MEDS ORDERED: Ibuprofen 200 MG TAB PO PRN (17:24)
[2018-03-18] MEDS ORDERED: traMADol HCl 50 MG TAB PO PRN (17:24)
[2018-03-18] MEDS ORDERED: Acetaminophen 325 MG TAB PO PRN (17:24)
[2018-03-18] MEDS: Insulin Glargine 12 UNITS in Pre-Filled Syringe SC SCH (21:07)
[2018-03-18] MEDS: Atorvastatin Calcium 40 MG TAB PO SCH (21:09)
[2018-03-19 06:08] LABS: Anion Gap 11 mmol/L (10-20); BUN (Urea Nitrogen) 21 mg/dL (8.4-25.7); Calc. Creatinine Clearance 93 mL/min (70-130); Calcium 9.2 mg/dL (7.8-10.44); Carbon Dioxide 30 mmol/L (23-31); Chloride 99 mmol/L (98-107); Estimated GFR-MDRD 47; Glucose 155 mg/dL (80-115); Potassium 4.1 mmol/L (3.5-5.1); Sodium 136 mmol/L (136-145)
[2018-03-19] MEDS: Carvedilol 3.125 MG TAB PO SCH ×2 (08:59→16:51)
[2018-03-19] MEDS: metFORMIN 500 MG TAB PO SCH ×2 (09:00→16:51)
[2018-03-19] MEDS: Lisinopril 5 MG TAB PO SCH (09:00)
[2018-03-19] MEDS: Enoxaparin Sodium 40 MG/0.4 ML SYRINGE SC SCH (09:00)
[2018-03-19] MEDS: Furosemide 40 MG TAB PO SCH ×2 (09:00→13:01)
[2018-03-19] MEDS: Famotidine 20 MG TAB PO SCH (09:00)
[2018-03-19] MEDS: Aspirin 81 mg Enteric Coated Tablet PO SCH (09:01)
[2018-03-19] MEDS: Vancomycin HCl 1.5 GM in Sodium Chloride 0.9% 250 ML 300 ML IVPB SCH (09:05)
[2018-03-19] MEDS: HumaLOG 300 UNITS/3 ML VIAL SC PRN (12:57)
--- NOTE | 2018-03-19 15:36 | PDOC.PN ---
- Subjective Encounter Start Date: 03/19/18 Encounter Start Time: 15:33 Subjective: nsg notes rev, kobe ovn, no new c/o - Objective Resuscitation Status: Resuscitation Status FULL:Full Resuscitation Vital Signs & Weight: Vital Signs (12 hours) Temp Pulse Pulse Pulse Resp BP BP 03/19/18 13:01 72 61 156/74 H 03/19/18 12:20 98.2 F 68 20 03/19/18 09:00 69 121/59 L 03/19/18 07:55 03/19/18 07:25 97.3 F L 69 20 03/19/18 04:00 97.6 F 61 16 BP BP Pulse Ox Pulse Ox 03/19/18 13:01 156/80 H 93 L 03/19/18 12:20 137/77 94 L 03/19/18 09:00 03/19/18 07:55 96 03/19/18 07:25 121/59 L 96 03/19/18 04:00 149/76 H 98 Weight Admit Weight 296 lb 5 oz Weight 284 lb 14.4 oz I&O: 03/18/18 03/19/18 03/20/18 06:59 06:59 06:59 Intake Total 1520 1438 Output Total 3200 2200 Balance -1680 -762 Result Diagrams: 03/17/18 10:53 03/19/18 04:31 Additional Labs: Accuchecks 03/19/18 03/19/18 03/18/18 11:11 05:59 21:07 POC Glucose 225 H 147 H 187 H 03/18/18 17:26 POC Glucose 159 H Dx/Plan - Plan HEENT: PERRLA Respiratory: no wheezing, no rales, no rhonchi, clear to auscultation bilateral Cardiovascular: RRR, no significant murmur, no rub Gastrointestinal: soft, non-tender, no distention, positive bowel sounds Musculoskeletal: pulses present, edema present + chronic venous stasis changes, mild erythema of the left leg, patch covering previously described open wound wound photos reviewed Dx/Plan (1) Acute on chronic combined systolic and diastolic congestive heart failure Code(s): I50.43 - ACUTE ON CHRONIC COMBINED SYSTOLIC AND DIASTOLIC HRT FAIL Status: Acute Comment: Pt responding well to diuretics, transition to oral diuretics improving clinically apprec card c/s has been recommended for AICD and declined (2) Cellulitis of leg, left Code(s): L03.116 - CELLULITIS OF LEFT LOWER LIMB Status: Acute wound culture is growing Serratia, and 2 other unidentified gram negative rods. currently on IV levaquin - will re-assess for clinical improvement prior to transition to oral and d/c pain- prn acetaminophen, ibuprofen, tramadol (3) Diabetes mellitus type 2 in obese Code(s): E11.69 - TYPE 2 DIABETES MELLITUS WITH OTHER SPECIFIED COMPLICATION; E66.9 - OBESITY, UNSPECIFIED Status: Chronic lantus has been added this admission - may need this at discharge (4) HTN (hypertension) Code(s): I10 - ESSENTIAL (PRIMARY) HYPERTENSION Status: Chronic Qualifiers: Hypertension type: essential hypertension Qualified Code(s): I10 - Essential (primary) hypertension Comment: Monitor vital signs, titrate antihypertensives as needed (5) Morbid obesity with BMI of 45.0-49.9, adult Code(s): E66.01 - MORBID (SEVERE) OBESITY DUE TO EXCESS CALORIES; Z68.42 - BODY MASS INDEX (BMI) 45.0-49.9, ADULT Status: Chronic Review of Systems - Medications/Allergies Allergies/Adverse Reactions: Allergies Allergy/AdvReac Type Severity Reaction Status Date / Time No Known Drug Allergies Allergy Unknown Verified 12/21/17 02:54 Medications: Current Medications Acetaminophen (Tylenol) 325 mg PO Q4H PRN PRN Reason: Headache/Fever or Pain Aspirin (Ecotrin) 81 mg PO DAILY [facility] Last Admin: 03/19/18 09:01 Dose: 81 mg Atorvastatin Calcium (Lipitor) 40 mg PO HS [facility] Last Admin: 03/18/18 21:09 Dose: 40 mg Carvedilol (Coreg) 3.125 mg PO BID-WM [facility] Last Admin: 03/19/18 08:59 Dose: 3.125 mg Dextrose/Water (Dextrose 50%) 25 gm SLOW IVP PRN PRN PRN Reason: Hypoglycemia Enoxaparin Sodium (Lovenox) 40 mg SC 0900 [facility] Last Admin: 03/19/18 09:00 Dose: 40 mg Famotidine (Pepcid) 20 mg PO DAILY [facility] Furosemide (Lasix) 40 mg PO 0900,1400 [facility] Last Admin: 03/19/18 13:01 Dose: 40 mg Glucagon (Glucagon) 1 mg IM PRN PRN PRN Reason: Hypoglycemia Dextrose/Water (D5w) 1,000 mls @ 0 mls/hr IV .Q0M PRN PRN Reason: Hypoglycemia Insulin Glargine 12 units/ (Miscellaneous Medication) 0.12 mls @ 0 mls/hr SC HS [facility] Last Admin: 03/18/18 21:07 Dose: 0.12 mls Vancomycin HCl 1.5 gm/ Sodium (Chloride) 300 mls @ 200 mls/hr IVPB Q24HR@0900 [facility] Last Admin: 03/19/18 09:05 Dose: 300 mls Levofloxacin 500 mg/ Device 100 mls @ 100 mls/hr IVPB Q24HR [facility] Last Admin: 03/19/18 15:18 Dose: 100 mls Ibuprofen (Motrin) 200 mg PO Q4H PRN PRN Reason: Pain Insulin Human Lispro (Humalog) 0 units SC .MILD SLIDING SCALE PRN PRN Reason: Mild Correctional Scale Last Admin: 03/19/18 12:57 Dose: 3 units Insulin Human Lispro (Humalog) 0 units SC .BEDTIME SLIDING SC PRN PRN Reason: Bedtime Correctional Scale Last Admin: 03/14/18 20:29 Dose: 2 unit Lisinopril (Zestril) 5 mg PO DAILY [facility] Last Admin: 03/19/18 09:00 Dose: 5 mg Metformin HCl (Glucophage) 500 mg PO BID-[facility] Last Admin: 03/19/18 09:00 Dose: 500 mg Miscellaneous Medication (Pharmacy To Dose) 0 each IVPB PRN PRN PRN Reason: HEIDI/ZOMYNORN Pharmacy to Dose Sodium Chloride (Flush - Normal Saline) 10 ml IVF Q12HR [facility] Last Admin: 03/19/18 09:01 Dose: 10 ml Sodium Chloride (Flush - Normal Saline) 10 ml IVF PRN PRN PRN Reason: Saline Flush Last Admin: 03/13/18 19:40 Dose: 10 ml Tramadol HCl (Ultram) 50 mg PO Q6H PRN PRN Reason: Pain MODERATE Last Admin: 03/19/18 08:59 Dose: 50 mg
[2018-03-19] MEDS: Insulin Glargine 12 UNITS in Pre-Filled Syringe SC SCH (21:25)
[2018-03-19] MEDS: Atorvastatin Calcium 40 MG TAB PO SCH (21:25)
[2018-03-20 05:50] LABS: Anion Gap 14 mmol/L (10-20); BUN (Urea Nitrogen) 19 mg/dL (8.4-25.7); Calc. Creatinine Clearance 103 mL/min (70-130); Calcium 9.4 mg/dL (7.8-10.44); Carbon Dioxide 22 mmol/L (23-31); Chloride 101 mmol/L (98-107); Estimated GFR-MDRD 53; Glucose 131 mg/dL (80-115); Sodium 133 mmol/L (136-145)
[2018-03-20] MEDS: Aspirin 81 mg Enteric Coated Tablet PO SCH (10:16)
[2018-03-20] MEDS: Carvedilol 3.125 MG TAB PO SCH ×2 (10:16→16:19)
[2018-03-20] MEDS: Furosemide 40 MG TAB PO SCH ×2 (10:16→13:32)
[2018-03-20] MEDS: metFORMIN 500 MG TAB PO SCH ×2 (10:16→16:19)
[2018-03-20] MEDS: Lisinopril 5 MG TAB PO SCH (10:17)
[2018-03-20] MEDS: Vancomycin HCl 1.5 GM in Sodium Chloride 0.9% 250 ML 300 ML IVPB SCH (10:17)
[2018-03-20] MEDS: Enoxaparin Sodium 40 MG/0.4 ML SYRINGE SC SCH (10:17)
[2018-03-20] MEDS: Famotidine 20 MG TAB PO SCH (10:27)
[2018-03-20 12:24] VITALS: BMI 46.5
[2018-03-20] MEDS: HumaLOG 300 UNITS/3 ML VIAL SC PRN (12:35)
[2018-03-20] MEDS: Atorvastatin Calcium 40 MG TAB PO SCH (21:50)
[2018-03-20] MEDS: Insulin Glargine 12 UNITS in Pre-Filled Syringe SC SCH (21:50)
--- NOTE | 2018-03-20 23:27 | PDOC.PN ---
- Subjective Encounter Start Date: 03/20/18 Encounter Start Time: 13:00 Subjective: nsg notes rev, kobe ovn, pt no new c/o other than continued pain on the RLE -: particularly with dressing changes - Objective Resuscitation Status: Resuscitation Status FULL:Full Resuscitation Vital Signs & Weight: Vital Signs (12 hours) Temp Pulse Pulse Pulse Resp BP BP 03/20/18 20:03 03/20/18 19:46 97.5 F L 72 18 03/20/18 16:30 98.1 F 81 18 03/20/18 12:37 98.1 F 69 18 03/20/18 11:45 65 64 152/67 H 141/67 H BP BP Pulse Ox Pulse Ox Pulse Ox 03/20/18 20:03 92 L 03/20/18 19:46 159/80 H 92 L 03/20/18 16:30 129/65 93 L 03/20/18 12:37 148/74 H 93 L 03/20/18 11:45 94 L 93 L Weight Admit Weight 296 lb 5 oz Weight 288 lb 3.2 oz I&O: 03/19/18 03/20/18 03/21/18 06:59 06:59 06:59 Intake Total 1438 1360 760 Output Total 2200 925 1300 Balance -762 435 -540 Result Diagrams: 03/17/18 10:53 03/20/18 05:00 Additional Labs: Accuchecks 03/20/18 03/20/18 03/20/18 21:48 17:02 11:03 POC Glucose 153 H 132 H 189 H 03/20/18 06:17 POC Glucose 125 H Dx/Plan - Plan * .
[2018-03-21 05:53] LABS: Anion Gap 12 mmol/L (10-20); BUN (Urea Nitrogen) 21 mg/dL (8.4-25.7); Calc. Creatinine Clearance 111 mL/min (70-130); Calcium 9.2 mg/dL (7.8-10.44); Carbon Dioxide 26 mmol/L (23-31); Chloride 103 mmol/L (98-107); Estimated GFR-MDRD 59; Glucose 138 mg/dL (80-115); Potassium 3.8 mmol/L (3.5-5.1); Sodium 137 mmol/L (136-145)
[2018-03-21] MEDS: Vancomycin HCl 1.5 GM in Sodium Chloride 0.9% 250 ML 300 ML IVPB SCH (09:00)
[2018-03-21] MEDS: metFORMIN 500 MG TAB PO SCH ×2 (09:00→15:52)
[2018-03-21] MEDS: Carvedilol 3.125 MG TAB PO SCH ×2 (09:00→15:52)
[2018-03-21] MEDS: Famotidine 20 MG TAB PO SCH (09:00)
[2018-03-21] MEDS: Lisinopril 5 MG TAB PO SCH ×2 (09:00→20:38)
[2018-03-21] MEDS: Aspirin 81 mg Enteric Coated Tablet PO SCH (09:00)
[2018-03-21] MEDS: Furosemide 40 MG TAB PO SCH ×2 (09:00→15:52)
[2018-03-21] MEDS: Enoxaparin Sodium 40 MG/0.4 ML SYRINGE SC SCH (09:01)
[2018-03-21] MEDS: Atorvastatin Calcium 40 MG TAB PO SCH (20:38)
[2018-03-21] MEDS: Insulin Glargine 12 UNITS in Pre-Filled Syringe SC SCH (20:52)
--- NOTE | 2018-03-21 23:38 | PDOC.PN ---
- Objective Resuscitation Status: Resuscitation Status FULL:Full Resuscitation Vital Signs & Weight: Vital Signs (12 hours) Temp Pulse Resp BP BP Pulse Ox 03/21/18 21:00 97.9 F 70 16 147/73 H 97 03/21/18 20:45 97 03/21/18 20:38 70 147/73 H 03/21/18 13:56 98.1 F 87 16 144/74 H 96 Weight Admit Weight 296 lb 5 oz Weight 282 lb 4.8 oz I&O: 03/20/18 03/21/18 03/22/18 06:59 06:59 06:59 Intake Total 1360 1260 880 Output Total 925 2050 1375 Balance 707 -142 -332 Result Diagrams: 03/17/18 10:53 03/21/18 05:11 Additional Labs: Accuchecks 03/21/18 03/21/18 03/21/18 16:47 11:05 05:41 POC Glucose 164 H 176 H 123 H Dx/Plan - Plan * .
[2018-03-22 05:30] LABS: Anion Gap 11 mmol/L (10-20); BUN (Urea Nitrogen) 21 mg/dL (8.4-25.7); Calc. Creatinine Clearance 115 mL/min (70-130); Calcium 9.2 mg/dL (7.8-10.44); Carbon Dioxide 28 mmol/L (23-31); Chloride 102 mmol/L (98-107); Estimated GFR-MDRD 61; Glucose 94 mg/dL (80-115); Potassium 3.9 mmol/L (3.5-5.1); Sodium 137 mmol/L (136-145)
[2018-03-22 08:41] LABS: Vancomycin, Trough 19.1 ug/mL
[2018-03-22] MEDS: metFORMIN 500 MG TAB PO SCH ×2 (09:02→17:23)
[2018-03-22] MEDS: Aspirin 81 mg Enteric Coated Tablet PO SCH (09:02)
[2018-03-22] MEDS: Famotidine 20 MG TAB PO SCH (09:02)
[2018-03-22] MEDS: Carvedilol 3.125 MG TAB PO SCH (09:02)
[2018-03-22] MEDS: Lisinopril 5 MG TAB PO SCH (09:02)
[2018-03-22] MEDS: Furosemide 40 MG TAB PO SCH ×2 (09:02→14:53)
[2018-03-22] MEDS: Enoxaparin Sodium 40 MG/0.4 ML SYRINGE SC SCH (09:03)
[2018-03-22] MEDS: Vancomycin HCl 1.5 GM in Sodium Chloride 0.9% 250 ML 300 ML IVPB SCH (09:52)
[2018-03-22] MEDS ORDERED: Carvedilol 3.125 MG TAB PO SCH (15:00)
[2018-03-22 18:39] VITALS: BP 137/62; TEMP 98.7
== END 2018-03-22 18:39 | disposition home or self-care (01) | DRG 291 ==
LOC: ERS 17:16 → 2NO 22:14
PROVIDERS: ADMIT Internal Medicine; ATTEND Internal Medicine
DX: I11.0 Hypertensive heart disease with heart failure (principal); J96.01 Acute respiratory failure with hypoxia; Z68.41 Body mass index [BMI] 40.0-44.9, adult; L03.116 Cellulitis of left lower limb; I50.43 Acute on chronic combined systolic (congestive) and diastolic (congestive) heart failure; E66.9 Obesity, unspecified; I25.10 Atherosclerotic heart disease of native coronary artery without angina pectoris; I25.2 Old myocardial infarction; Z95.1 Presence of aortocoronary bypass graft; I25.5 Ischemic cardiomyopathy; E78.5 Hyperlipidemia, unspecified; Z87.891 Personal history of nicotine dependence; Z79.899 Other long term (current) drug therapy; Z79.84 Long term (current) use of oral hypoglycemic drugs; E11.65 Type 2 diabetes mellitus with hyperglycemia; Z91.19 Patient's noncompliance with other medical treatment and regimen; Z79.82 Long term (current) use of aspirin
CPT/HCPCS: 36415; 36416; 71045; 71275; 80048; 80053; 80076; 80202; 82550; 82553; 83735; 83880; 84443; 84484; 85025; 85379; 87070; 87077; 87186; 87205; 90471; 90686; 90732; 93005; 93306; 93798; 96365; 96375; G0008; G0009; J0282; J1650; J1940; J1956; J2543; J3370; J7050; J7070; S0028

== ENCOUNTER 2018-05-07 18:11 | Observation (INO) | payer MEDICARE ==
[2018-05-07] MEDS ORDERED: Nitroglycerin 2% Ointment 1 INCH/1 GM Packet ONE (18:40)
[2018-05-07 18:47] LABS: #Eosinphils 0.2 thou/uL (0.0-0.7); #Lymphocytes 1.2 thou/uL (1.20-3.40); #Monocytes 0.9 thou/uL (0.11-0.59); #Neutrophils 9.2 thou/uL (1.40-6.50); %Basophils 0.2 % (0.0-1.0); %Eosinophils 1.7 % (0.0-10.0); %Lymphocytes 10.3 % (21.0-51.0); %Monocytes 7.8 % (0.0-10.0); %Neutrophils 79.9 % (42.0-75.0); Hemoglobin 12.8 g/dL (14.0-18.0); Mean Corpuscular Hemoglobin 27.8 pg (27.0-31.0); Mean Corpuscular Volume 86.7 fL (78.0-98.0); Mean Platelet Volume 8.9 fL (7.4-10.4); Platelet Count 230 thou/uL (130-400); RBC Distribution Width 17.2 % (11.5-14.5); Red Blood Cell (RBC) Count 4.63 mill/uL (4.70-6.10); White Blood Cell (WBC) Count 11.4 thou/uL (4.8-10.8)
[2018-05-07] MEDS ORDERED: Ondansetron PF 4 MG/2 ML Vial ONE (18:54)
[2018-05-07 19:01] LABS: ALT (SGPT) 17 U/L (8-55); AST (SGOT) 17 U/L (5-34); Albumin 3.6 g/dL (3.4-4.8); Alkaline Phosphatase 121 U/L (40-150); Anion Gap 15 mmol/L (10-20); BUN (Urea Nitrogen) 22 mg/dL (8.4-25.7); Bilirubin, Total 0.5 mg/dL (0.2-1.2); Calc. Creatinine Clearance 0 mL/min (70-130); Calcium 9.2 mg/dL (7.8-10.44); Carbon Dioxide 23 mmol/L (23-31); Chloride 100 mmol/L (98-107); Estimated GFR-MDRD 69; Globulin 4.5 g/dL (2.4-3.5); Glucose 337 mg/dL (80-115); Lipase 19 U/L (8-78); Protein, Total 8.1 g/dL (5.8-8.1); Sodium 134 mmol/L (136-145)
--- NOTE | 2018-05-07 19:08 | RAD ---
RADIOGRAPH CHEST 1 VIEW: Date: 05-07-18 Time: 6:53 p.m. HISTORY: 62-year-old male with chest pain. COMPARISON: 03-12-18 FINDINGS: Cardiomegaly. Pulmonary venous engorgement. Diffuse bilateral interstitial infiltrates which probably represent pulmonary edema. Sternotomy wires. No pneumothorax. Findings are very similar to those of the prior study. IMPRESSION: Congestive heart failure. RUFUS POS: [facility]
[2018-05-07] MEDS ORDERED: Furosemide 100 MG/10 ML VIAL ONE (21:02)
--- NOTE | 2018-05-07 23:26 | CT ---
CTA CHEST AND ABDOMEN WITH CONTRAST: Technique: Multiple contiguous axial images were obtained chest and abdomen following an aortogram pr otocol with multiplanar reconstruction and 3D post processing. Indications: Chest pain and abdominal pain. FINDINGS: Thoracic and abdominal aorta shows atherosclerotic changes with peripheral calcification. There is pe ripheral thrombus in the abdominal aorta. There is no evidence of aneurysmal dilatation. There is no evidence of aortic dissection. Atherosclerotic calcifications involving the celiac artery appears to produce hemodynamically significant stenosis. No stenosis at the origin of the superior mesenteric although there is atherosclerotic changes throug hout the main trunk of the superior mesenteric. There is atherosclerotic calcification at the origin of the main left renal artery. There is an acces shaun left renal artery present. Evidence of significant stenosis at the origin of the main left renal . There are also two right renal arteries. There is evidence of soft thrombus producing significant michael nosis in the larger right renal artery. Atherosclerotic changes are seen in both common iliac arteries with evidence of high grade stenosis i n the distal left external iliac just beyond its origin. Lungs show small bilateral pleural effusions. There are chronic parenchymal changes. Hazy infiltrate or edema in the left upper lobe. There is cardiomegaly and vascular congestion. There is mediastinal lymphadenopathy with numerous enlarged lymph nodes seen in the paratracheal marc on, AP window, and subcarinal regions. Hilar adenopathy is also apparent. Images through the abdomen show unremarkable appearing liver, spleen, and pancreas. Numerous gas densities are seen in the gallbladder consistent with numerous small gallstones which ar e poorly delineated on this CT. Kidneys appear unremarkable. Small bowel loops show nonspecific fluid filled distention. The bowel is incompletely evaluated on th is study. IMPRESSION: 1. No evidence of aortic dissection. 2. Atherosclerotic changes in the abdominal aorta noted. There is evidence of bilateral renal artery stenosis and stenosis at the origin of the celiac artery. 3. Significant stenosis in the left external iliac which is incompletely evaluated. 4. Small bilateral pleural effusions. Cardiomegaly with vascular congestion and hazy alveolar infiltr ate or edema, most prominent in the left upper lobe. 5. Mediastinal and hilar adenopathy. 6. Cholelithiasis. 7. Incidental note is made of an anterior abdominal wall hernia just inferior to the xiphoid process. Mesenteric fat herniates through the defect. POS: [facility]
[2018-05-08 00:15] LABS: Troponin I 0.022 ng/mL (< 0.028)
[2018-05-08] MEDS ORDERED: Ondansetron ODT 4 MG TAB SL PRN (01:27)
[2018-05-08] MEDS ORDERED: Ondansetron PF 4 MG/2 ML Vial IVP PRN (01:27)
[2018-05-08 01:58] VITALS: BMI 45.3
[2018-05-08 03:19] LABS: Troponin I 0.021 ng/mL (< 0.028)
[2018-05-08] MEDS ORDERED: Bisacodyl 5 MG TAB PO PRN (04:36)
[2018-05-08] MEDS ORDERED: Dextrose 5% in Water 1,000 ML IV PRN (04:36)
[2018-05-08] MEDS ORDERED: Lorazepam 2 MG/ML VIAL SLOW IVP PRN (04:36)
[2018-05-08] MEDS ORDERED: Dextrose 50% Abboject 50 ML SYRINGE SLOW IVP PRN (04:36)
[2018-05-08] MEDS ORDERED: HumaLOG 300 UNITS/3 ML VIAL SC PRN (04:36)
[2018-05-08] MEDS ORDERED: Zolpidem Tartrate 5 MG TAB PO PRN (04:36)
[2018-05-08] MEDS ORDERED: Senokot S 8.6-50 MG TAB PO PRN (04:36)
[2018-05-08] MEDS ORDERED: Guaifenesin DM 100-10/5 ML UDCUP PO PRN (04:36)
[2018-05-08] MEDS ORDERED: Nitroglycerin 0.4 MG TAB (25 Tab Bottle) PO PRN (04:43)
[2018-05-08] MEDS: Nitroglycerin 2% Ointment 1 INCH/1 GM Packet TOP SCH ×3 (06:20→22:21)
[2018-05-08] MEDS ORDERED: Famotidine/PF 20 mg/2ml Vial SLOW IVP SCH (09:00)
[2018-05-08 10:56] LABS: ALT (SGPT) 13 U/L (8-55); AST (SGOT) 17 U/L (5-34); Albumin 3.1 g/dL (3.4-4.8); Alkaline Phosphatase 90 U/L (40-150); Anion Gap 16 mmol/L (10-20); BUN (Urea Nitrogen) 27 mg/dL (8.4-25.7); Bilirubin, Total 0.8 mg/dL (0.2-1.2); Calc. Creatinine Clearance 161 mL/min (70-130); Calcium 8.8 mg/dL (7.8-10.44); Carbon Dioxide 20 mmol/L (23-31); Chloride 102 mmol/L (98-107); Estimated GFR-MDRD 90; Glucose 197 mg/dL (80-115); Potassium 4.2 mmol/L (3.5-5.1); Protein, Total 7.1 g/dL (5.8-8.1); Sodium 134 mmol/L (136-145)
[2018-05-08 11:04] LABS: #Eosinphils 0.1 thou/uL (0.0-0.7); #Monocytes 1.8 thou/uL (0.11-0.59); #Neutrophils 10.6 thou/uL (1.40-6.50); %Basophils 0.2 % (0.0-1.0); %Eosinophils 0.7 % (0.0-10.0); %Lymphocytes 7.1 % (21.0-51.0); %Monocytes 13.6 % (0.0-10.0); %Neutrophils 78.4 % (42.0-75.0); Hemoglobin 12.5 g/dL (14.0-18.0); Mean Corpuscular HGB CONC 31.9 g/dL (32.0-36.0); Mean Corpuscular Hemoglobin 26.9 pg (27.0-31.0); Mean Corpuscular Volume 84.2 fL (78.0-98.0); Mean Platelet Volume 8.9 fL (7.4-10.4); Platelet Count 193 thou/uL (130-400); RBC Distribution Width 17.2 % (11.5-14.5); Red Blood Cell (RBC) Count 4.66 mill/uL (4.70-6.10); White Blood Cell (WBC) Count 13.5 thou/uL (4.8-10.8)
[2018-05-08] MEDS: Enoxaparin Sodium 40 MG/0.4 ML SYRINGE SC SCH (11:36)
[2018-05-08] MEDS: Famotidine 20 MG TAB PO SCH ×2 (11:37→20:59)
[2018-05-08] MEDS: Ondansetron PF 4 MG/2 ML Vial IVP PRN ×2 (11:37→17:38)
--- NOTE | 2018-05-08 12:24 | HP ---
PRIMARY CARE PHYSICIAN: None. CHIEF COMPLAINT: Chest pain and syncope. HISTORY OF PRESENT ILLNESS: Mr. Fu is a 62-year-old male with significant past medical history including coronary artery disease, history of myocardial infarction, diabetes type II, hyperlipidemia, high cholesterol, hypertension, has had a CABG in the past. The patient has a history of noncompliance with his medication. HPI is primarily gleaned from emergency record and some information from the patient as he is unable to give me a good history and there is no family at the bedside currently. ER records indicate that he was brought to the emergency room on 05/07/2018 after he was found unresponsive, was told that the emergency room personal that he was found at home, that he was unresponsive and foaming at the mouth. reports that she did CPR for few minutes and then she brought him to the emergency room. The patient was complaining of chest pain and abdomen pain in the emergency room. Currently, he is complaining of upper abdominal pain. A CT dissection was performed in the emergency room, which showed no evidence of any aortic dissection, some arthrosclerotic changes in the abdominal aorta, evidence of bilateral renal artery stenosis, stenosis at the origin of the celiac artery, significant stenosis in the left external iliac, a small bilateral pleural effusion, cardiomegaly with vascular congestion and hazy infiltrate or edema most prominent in the left upper lobe, mediastinal and hilar adenopathy, cholelithiasis. He does have an incidental note of an anterior abdominal wall hernia just inferior to the xyphoid process and does have some mesenteric fat which herniates to this hernia. The patient was admitted in February for chest pain and was seen by Dr. Madera at that time. He was restarted on his medications which evidently he ran out of prior to that admission and was given some Lasix and diuresed. He has a history of an ejection fraction of 25 to 30% and Dr. Madera notes that he has declined ICD multiple times. His troponin x3 were in the undetectable range. The patient is currently reporting some upper abdominal pain and some nausea. Denies some other symptoms. He is unaware that he either had a seizure or syncope yesterday and is not very helpful on his medical history at this time. The patient was given 80 mg of Lasix in the emergency room which evidently improved some shortness of breath. He had two EKGs in the emergency room which showed inverted T-waves in the lateral leads, prolonged QTc and that was nonspecific. The patient was admitted to the observation unit for further management. REVIEW OF SYSTEMS: Positive for upper abdomina pain. The patient denies any nausea, vomiting, or diarrhea. Denies any current shortness of breath, denies any current chest pain, has bilateral lower extremity swelling. He reports pain in lower extremities, denies any fever, denies any chills, also was complaining of diffuse abdominal pain when asked. Otherwise as documented in HPI. All other systems are reviewed and negative. PAST MEDICAL HISTORY: Includes congestive heart failure, coronary artery disease, myocardial infarction, diabetes type II, hyperlipidemia, hypertension, obesity, and noncompliance. FAMILY HISTORY: Reviewed and noncontributory. PAST SURGICAL HISTORY: Coronary artery disease post CABG. PSYCHIATRIC HISTORY: Denies any previous history. SOCIAL HISTORY: He was a former smoker, quit 6 years ago. The family denies any illicit drug use, denies any alcohol use. The patient stays at home with niece. This information is gathered from the last H and P dictated in February. The patient is unable to give me any social history at this time. ALLERGIES: NO DRUG ALLERGIES. MEDICATIONS: From last admission; 1. Aspirin 81 mg p.o. daily. 2. Lipitor 40 mg p.o. at bedtime. 3. Coreg 3.125 mg p.o. t.i.d. 4. Pepcid 20 mg p.o. daily. 5. Lasix 40 mg p.o. b.i.d. 6. Lantus 12 units subcu at bedtime. 7. Lisinopril 5 mg p.o. b.i.d. 8. Metformin 500 mg p.o. b.i.d. The patient reports that he is taking his medications as prescribed. PHYSICAL EXAMINATION: VITAL SIGNS: Blood pressure 123/59, pulse 106, temperature 98.5, O2 sats are 94% with 4 liters of nasal cannula. GENERAL: The patient appears anxious, nontoxic and in moderate pain distress. HEAD: Atraumatic and normocephalic. EYES: Eyelids are normal to inspection. Pupils are equally round and reactive to light. Extraocular muscles are intact. Normal eyes thickness. ENT: Mucous membranes are moist. NECK: No JVD. Normal range of motion. Trachea is midline. RESPIRATORY/CHEST: No respiratory distress. Breath sounds are clear. CARDIOVASCULAR: S1 and S2. ABDOMEN: Male. Abdomen is tender diffusely on exam with palpation. Reports increased pain to upper abdomen. No guarding. No rebound. No acute abdomen signs. BACK: Normal to inspection. Normal range of motion. No tenderness. EXTREMITIES: Upper extremities; normal inspection, normal range of motion. Sensation is intact. Radial pulses are normal bilaterally. Lower extremities; on inspection, skin is discolored to lower extremities with pitting edema. Pedal pulses normal bilaterally. NEUROLOGIC: The patient is oriented to person, place, and time. Speech is normal. SKIN: Warm, dry, and normal in color. PSYCH: Psych is normal. PERTINENT LABS: White blood cell count is 11.4, hemoglobin 12.8, hematocrit 40.1, platelet count 230. Sodium 134, potassium 4, chloride 100, anion gap is 15, BUN is 22, creatinine is 1.08. Estimated GFR is 69, glucose 215, calcium 9.2, troponin x3 are undetectable. BNP 314. Liver enzymes are unremarkable. Lipase is 19. ASSESSMENT AND PLAN: 1. Chest pain, echocardiogram will be ordered. We will ask Dr. Madera to come and see the patient. 2. Syncope, possible seizure activity. Dr. Ortega from Neurology will be consulted. An EEG was ordered. Seizure precaution in place. Drug screen has been ordered. 3. Hypertension, home medications will be restarted, vital signs will be monitored. 4. Diabetes type II, home medications will be restarted, mild sliding scale will be added. We will get a.c. and bedtime Accu-Chek. 5. GI, deep venous thrombosis prophylaxis will be started. 6. Hospital course will depend on clinical findings. Job ID: [id number]
[2018-05-08 14:02] LABS: Amphetamine Not Detected (NotDetected); Barbiturates Screen Not Detected (NotDetected); Benzodiazepine Screen Not Detected (NotDetected); Cocaine Metabolite Screen Not Detected (NotDetected); Medtox Control Line Valid? VALID (VALID); Medtox Reader # READER 4; Methadone Not Detected (NotDetected); Methamphetamine Not Detected (NotDetected); Opiate Screen Not Detected (NotDetected); Oxycodone Screen Not Detected (NotDetected); Phencyclidine (PCP) Not Detected (NotDetected); THC/Cannabinoid Screen Not Detected (NotDetected); Tricyclic Screen Not Detected (NotDetected)
--- NOTE | 2018-05-08 16:18 | CT ---
CT BRAIN NONCONTRAST: DATE: 05/08/2018 TIME: 2:20 p.m. HISTORY: A 62-year-old male status post seizure. COMPARISON: None available. FINDINGS: There is a moderate-sized region of encephalomalacia and gliosis in the left frontal lobe, extending from the periventricular white matter abutting the left frontal horn, to the pial-cortical surface, l aterally and broadly. There is a tiny old lacunar infarction at the head of the right caudate nucleu s. The ventricles are normal in size and configuration. No mass effect, midline shift, or extraaxia l fluid collection. No acute intraaxial or extraaxial hemorrhage. The calvarium is intact. The fro ntal, ethmoid, sphenoid, and upper two-thirds of the right maxillary sinuses are clear. There is kirt ypoid mild to moderate mucosal thickening throughout the left maxillary sinus. IMPRESSION: 1. Moderate sized region of old insult in the left frontal lobe, probably an old infarction in the l eft middle cerebral artery territory. 2. Tiny old lacunar infarction in the right caudate nucleus. 3. No acute intracranial findings. RUFUS Cedeño POS: [facility]
[2018-05-08] MEDS: HumaLOG 300 UNITS/3 ML VIAL SC PRN (17:39)
[2018-05-08] MEDS ORDERED: Furosemide 40 MG TAB PO SCH (18:45)
[2018-05-08 20:29] LABS: Bilirubin Negative (Negative); Blood, Urine Trace (Negative); Clarity CLEAR (Clear); Glucose, Urine (Dipstick) Negative (Negative); Leukocyte Negative (Negative); Nitrite Negative (Negative); Protein, Urine (Dipstick) 100 mg/dL (Neg-Trace); Specific Gravity, Urine 1.026 (1.002-1.036)
[2018-05-08 20:34] LABS: Bacteria/HPF None Seen HPF (None Seen); Hyaline Casts/LPF 0-3 HYALINE CAST LPF (0-3 Hyaline); Pathc Cast-AUWi Flag 0.29 (0-2.49); Squamous Epithelial 0-3 HPF (0-3); WBC/HPF 0-3 HPF (0-3)
[2018-05-08] MEDS: levETIRAcetam 500 MG TAB PO SCH (20:59)
[2018-05-08] MEDS: Calcium Carbonate 500 MG ChewTAB PO PRN (22:52)
[2018-05-08] MEDS: Ondansetron ODT 4 MG TAB PO PRN (22:54)
--- NOTE | 2018-05-09 00:40 | CON ---
DATE OF CONSULTATION: 05/08/2018 HISTORY OF PRESENT ILLNESS: Thomas Fu is a 62-year-old male, who I have followed for several years. He is very noncompliant, not coming to the office for followup and frequently would run out of his medications. He apparently had bypass surgery approximately 14 years ago in [place]. He has severe ischemic cardiomyopathy with ejection fractions of 25% to 30% on echocardiograms. He has repeatedly refused ICD in the past. His last admission was in February 2018 when he ran out of his medications. He states he has not run out of his medications. He apparently had an unresponsive episode, was brought to the emergency room on May 07. apparently did CPR for few minutes after he was found unresponsive and foaming at the mouth. His only complaint at the present time is the abdominal pain. He denies any chest pain. PAST MEDICAL HISTORY: Severe ischemic cardiomyopathy, diabetes, hyperlipidemia, hypertension, morbid obesity, noncompliance, poor dentition, history of facial cellulitis. MEDICATIONS: (uncertain if he is really taking these). 1. Aspirin 81 daily. 2. Atorvastatin 40 at bedtime. 3. Carvedilol 3.125 . 4. Pepcid 20 mg daily. 5. Furosemide 40 mg b.i.d. 6. Insulin 12 units subcu at bedtime. 7. Levaquin 500 daily. 8. Lisinopril 5 mg b.i.d. 9. Metformin 500 b.i.d. 10. Bactrim q.12 hours. ALLERGIES: NONE. SOCIAL HISTORY: He has stopped smoking 6 years ago. He does not drink. REVIEW OF SYSTEMS: A 12-point review of systems is otherwise unremarkable except for the abdominal pain. PHYSICAL EXAMINATION: VITAL SIGNS: Blood pressure 119/55, pulse of 93. HEENT: PERRL. NECK: Supple. CHEST: Clear. CARDIAC EXAMINATION: S1 and S2 normal without any S3, S4, or murmurs. ABDOMEN: Morbidly obese. Normal bowel sounds with mild diffuse tenderness. No rebound. EXTREMITIES: Revealed trace pretibial edema. NEUROLOGICAL: Grossly intact. LABORATORY DATA: EKG revealed normal sinus rhythm with nonspecific T-wave changes in some of his previous EKGs. Hemoglobin 12.5, hematocrit 39.2, white count 13,500, platelets 193,000. Sodium 134, potassium 4.2, chloride , carbon dioxide 20, BUN 27, creatinine 0.86. Troponin I x3 is normal. IMPRESSION: 1. Unresponsive episode of uncertain etiology. 2. Status post coronary artery bypass grafting. 3. Severe ischemic cardiomyopathy with ejection fraction of 25% to 30%. 4. Patient declining ICD on numerous occasions. 5. Hypertension. 6. Hypercholesterolemia. 7. Diabetes. 8. Morbid obesity. 9. Former smoker. 10. History of facial cellulitis. PLAN: At the present, I did not feel any further cardiac evaluation is warranted. He continues to complain of abdominal pain and this should be further evaluated. Job ID: [id number]
[2018-05-09] MEDS: Nitroglycerin 2% Ointment 1 INCH/1 GM Packet TOP SCH ×2 (06:01→13:46)
[2018-05-09 06:25] LABS: #Eosinphils 0.1 thou/uL (0.0-0.7); #Monocytes 1.3 thou/uL (0.11-0.59); #Neutrophils 9.1 thou/uL (1.40-6.50); %Basophils 0.1 % (0.0-1.0); %Eosinophils 1.2 % (0.0-10.0); %Lymphocytes 8.9 % (21.0-51.0); %Monocytes 11.4 % (0.0-10.0); %Neutrophils 78.4 % (42.0-75.0); Hemoglobin 13.3 g/dL (14.0-18.0); Mean Corpuscular HGB CONC 31.1 g/dL (32.0-36.0); Mean Corpuscular Hemoglobin 26.7 pg (27.0-31.0); Mean Corpuscular Volume 86.1 fL (78.0-98.0); Mean Platelet Volume 9.7 fL (7.4-10.4); Platelet Count 189 thou/uL (130-400); RBC Distribution Width 17.5 % (11.5-14.5); Red Blood Cell (RBC) Count 4.99 mill/uL (4.70-6.10); White Blood Cell (WBC) Count 11.5 thou/uL (4.8-10.8)
[2018-05-09] MEDS: HumaLOG 300 UNITS/3 ML VIAL SC PRN (06:42)
[2018-05-09 06:47] LABS: Cardiac Risk 3.7 (Less than 4.5); Magnesium 1.7 mg/dL (1.6-2.6)
[2018-05-09] MEDS ORDERED: Carvedilol 3.125 MG TAB PO SCH (08:00)
--- NOTE | 2018-05-09 08:51 | ULT ---
RIGHT UPPER QUADRANT ULTRASOUND: INDICATIONS: History of right upper quadrant abdominal pain and gallstones. COMPARISON: CT aortic dissection protocol, dated 05/07/2018. FINDINGS: There are numerous stones seen, distending the gallbladder. The gallbladder wall is mildly thickened , measuring 3 mm. No sonographic Barney sign is reported. The common bile duct measures 3.8 mm. Th e liver is mildly enlarged, measuring 18 cm. The pancreas is obscured by overlying bowel gas. The r ight kidney measures 11.6 x 4.5 x 5.1 cm. No focal renal lesion or hydronephrosis is evident. IMPRESSION: 1. Cholelithiasis without sonographic evidence of acute calculus cholecystitis. 2. Mild hepatomegaly. POS: [facility]
--- NOTE | 2018-05-09 09:01 | EEG ---
Referring Physician: Elo MEYERS EEG # [id number] TEST TYPE: ROUTINE PORTABLE INPATIENT REPORT: AN EEG USING THE INTERNATIONAL TEN-TWENTY SYSTEM OF ELECTRODE PLACEMENT WAS PERFORMED. The waking background is a 8-9 hertz alpha frequency. The patient became drowsy , but no sleep was seen. Photic stimulation was unremarkable. No epileptiform features were present. IMPRESSION: THIS IS A NORMAL AWAKE AND DROWSY EEG. Hydrometer Tester: ROYCE Distribution Superintendent: EEG.RONALDO WILEY
[2018-05-09 09:44] LABS: ALT (SGPT) 14 U/L (8-55); AST (SGOT) 18 U/L (5-34); Albumin 3.2 g/dL (3.4-4.8); Alkaline Phosphatase 91 U/L (40-150); Anion Gap 16 mmol/L (10-20); BUN (Urea Nitrogen) 24 mg/dL (8.4-25.7); Bilirubin, Total 1.1 mg/dL (0.2-1.2); Calc. Creatinine Clearance 348 mL/min (70-130); Calcium 9.2 mg/dL (7.8-10.44); Carbon Dioxide 23 mmol/L (23-31); Chloride 100 mmol/L (98-107); Estimated GFR-MDRD 89; Globulin 4.3 g/dL (2.4-3.5); Glucose 192 mg/dL (80-115); Potassium 4.2 mmol/L (3.5-5.1); Protein, Total 7.5 g/dL (5.8-8.1); Sodium 135 mmol/L (136-145)
[2018-05-09] MEDS: Furosemide 40 MG TAB PO SCH ×2 (09:45→14:01)
[2018-05-09] MEDS: Enoxaparin Sodium 40 MG/0.4 ML SYRINGE SC SCH (09:45)
[2018-05-09] MEDS: levETIRAcetam 500 MG TAB PO SCH (09:45)
[2018-05-09] MEDS: Famotidine 20 MG TAB PO SCH (09:45)
[2018-05-09] MEDS: Ondansetron ODT 4 MG TAB PO PRN (09:46)
[2018-05-09] MEDS: Calcium Carbonate 500 MG ChewTAB PO PRN (09:46)
[2018-05-09 12:09] VITALS: BP 109/55; TEMP 98.2
--- NOTE | 2018-05-09 19:11 | DIS ---
DATE OF ADMISSION: 05/08/2018 DATE OF DISCHARGE: 05/09/2018 CONSULTANTS: 1. Dr. Min. 2. Dr. Madera. PROCEDURES: 1. The patient had a chest x-ray, which showed congestive heart failure. The patient also had a CT dissection protocol with impression;. a. No evidence of aortic dissection. b. Atherosclerotic changes in the abdominal aorta. Evidence of bilateral renal artery stenosis and stenosis at the origin of the celiac artery. c. Significant stenosis of the left external iliac. d. Small bilateral pleural effusions. Cardiomegaly with vascular congestion. e. Mediastinal and hilar adenopathy. f. Cholelithiasis. g. Anterior abdominal wall hernia inferior to the xiphoid process, mesenteric fat herniated defect. 2. The patient also had a brain CT with impression;. a. Moderate size at region of old infarct in the front left lobe, also probable old infarction in the left middle cerebral artery. b. Tiny old lacunar infarction in the right caudate nucleus. c. No acute intracranial findings. 3. The patient also had an echocardiogram with an EF visually estimated at 25% to 30%. Left atrium is mildly dilated. Mild mitral regurgitation is present. Mild tricuspid regurgitation. 4. The patient had an EEG, impression was a normal awake and drowsy EEG. HOSPITAL COURSE: Mr. Fu is a 62-year-old male with a significant past medical history including coronary artery disease, myocardial infarction, diabetes type 2, hyperlipidemia, high cholesterol, hypertension, and has had a CABG in the past. Also has a history of noncompliance with his medication and followup appointments. Information via the ER records indicated that he was brought to the emergency room via ambulance after he was found at home unresponsive and foaming at the mouth. Family member performed CPR when he came to and she called 911 and he was brought into the emergency room. He was complaining of upper abdominal pain primarily, where CPR was performed and chest pain. A dissection protocol CT was performed, findings as mentioned above. Echocardiogram was performed, EEG performed, CT dissection protocol and an ultrasound of the right upper quadrant based on the findings on the CT scan of cholelithiasis. The patient's lab values have remained stable. White blood cell count 11.5, hemoglobin 13.3, and hematocrit 42.9. Liver enzymes are unremarkable. Vital signs have remained stable. The patient is complaining of some abdominal pain, although that has relieved with Tums and occasional Zofran. Dr. Min was consulted and suggested based on the CT scan of his brain that we start him on some Keppra that was continued on an outpatient basis. Dr. Madera was consulted and did not see a need for any further cardiac workup. Case was discussed with Dr. Gerardo, who agreed with discharge planning. The patient will be referred back to [facility] for followup within the next week. Follow up with Dr. Méndez for potential outpatient cholecystectomy and hernia repair. DISCHARGE DIAGNOSES: 1. Possible seizure. 2. Congestive heart failure. 3. Hypertension. 4. Diabetes. 5. Hyperlipidemia. 6. Coronary artery disease. REVIEW OF SYSTEMS: The patient was examined on day of discharge, is still complaining of some mild epigastric pain with a negative Barney sign. Denies any nausea, vomiting, or diarrhea. Denies any shortness of breath, chest pain, or palpitations. All other systems were reviewed and are negative unless mentioned in the hospital course. PHYSICAL EXAMINATION: VITAL SIGNS: Temperature is 97.7, pulse 93, respirations 17, blood pressure 140/73, O2 sats are 95% on 2 L nasal cannula, and blood pressure 109/55. CONSTITUTIONAL: The patient is in no acute distress. He is nontoxic appearing. He is oriented to person, place, and time. HEENT: Head is atraumatic and normocephalic. Eyes; eyelids are normal to inspection. Pupils are equal, round, and reactive to light. Extraocular muscles are intact. ENT; mouth exam is normal. Mucous membranes are moist. NECK: Normal range of motion. Trachea is midline. RESPIRATORY: Chest; no respiratory distress. Breath sounds are clear. CARDIOVASCULAR: Heart rate is regular rate and rhythm. Heart sounds are normal. ABDOMEN: Male. Mild tenderness to upper epigastric region. No tenderness to right upper quadrant. Bowel sounds are heard. BACK: Normal inspection. Normal range of motion. No tenderness. EXTREMITIES: Upper extremity: Upper extremity findings are; inspection is normal. Range of motion normal. Motor strength is normal. Sensation intact. Radial pulses are normal bilaterally. Lower extremity: Lower extremity includes findings; skin is dusky. Pedal pulses are normal bilaterally. Edema is noted +2 bilaterally. NEURO: The patient is oriented to person, place, and time. Speech is normal. Gait is normal. SKIN: Warm, dry, and normal in color except with bilateral lower extremities, which showed signs of chronic insufficiency, dusky in color. PSYCH: Normal affect. MEDICATIONS: The patient will be discharged with home medications; 1. Aspirin 81 mg p.o. daily. 2. Lipitor 40 mg p.o. at bedtime. 3. Coreg 3.125 mg p.o. t.i.d. 4. Pepcid 20 mg p.o. daily. 5. Lasix 40 mg p.o. b.i.d. 6. Lantus 12 units subcu at bedtime. 7. Keppra is added on this admission 500 mg p.o. b.i.d. 8. Lisinopril 5 mg p.o. b.i.d. 9. Metformin 500 mg p.o. b.i.d. added on this admission. 10. Protonix 40 mg p.o. daily. ALLERGIES: NO KNOWN DRUG ALLERGIES. DISCHARGE CONDITION: Stable. DISPOSITION: The patient will be discharged home. DISCHARGE INSTRUCTIONS: 1. The patient is to follow up at [facility] within the next week. 2. Follow up with Dr. Madera within the next couple of weeks. 3. Follow up with Dr. Méndez, first available appointment for discussion with cholelithiasis and abdominal wall hernia. Job ID: [id number]
== END 2018-05-09 16:45 | disposition home or self-care (01) ==
LOC: ERS 18:11 → 2SW 05-08 01:08
PROVIDERS: ADMIT Internal Medicine; ATTEND Internal Medicine
DX: R55 Syncope and collapse (principal); I25.10 Atherosclerotic heart disease of native coronary artery without angina pectoris; I25.2 Old myocardial infarction; I11.0 Hypertensive heart disease with heart failure; I50.9 Heart failure, unspecified; I25.5 Ischemic cardiomyopathy; I70.1 Atherosclerosis of renal artery; E11.9 Type 2 diabetes mellitus without complications; E78.5 Hyperlipidemia, unspecified; E66.01 Morbid (severe) obesity due to excess calories; Z68.45 Body mass index [BMI] 70 or greater, adult; E78.00 Pure hypercholesterolemia, unspecified; J90 Pleural effusion, not elsewhere classified; K80.20 Calculus of gallbladder without cholecystitis without obstruction; K43.9 Ventral hernia without obstruction or gangrene; Z95.1 Presence of aortocoronary bypass graft; Z87.891 Personal history of nicotine dependence; Z91.19 Patient's noncompliance with other medical treatment and regimen; Z79.2 Long term (current) use of antibiotics; Z79.4 Long term (current) use of insulin; Z79.82 Long term (current) use of aspirin; Z79.899 Other long term (current) drug therapy
CPT/HCPCS: 70450; 71045; 71275; 76705; 80053 ×2; 80061; 80306; 81001; 82962 ×3; 83690; 83735; 83880; 84484 ×3; 85025 ×2; 87804 ×2; 93005; 93306; 94640; 95816; 95819; 96372 ×2; 96374; 96375; 96376 ×3; 99285; G0378 ×2; 36415; 36416; 84443; J1650; J1940; J2405; J7620; Q0162

== ENCOUNTER 2018-05-11 12:35 | Inpatient (IN) | payer MEDICARE ==
[2018-05-11] MEDS ORDERED: Morphine 2 MG/ML SYRINGE ONE (13:27)
[2018-05-11] MEDS ORDERED: Ondansetron PF 4 MG/2 ML Vial ONE (13:27)
[2018-05-11 13:38] LABS: Hemoglobin 14.8 g/dL (14.0-18.0); Mean Corpuscular HGB CONC 32.7 g/dL (32.0-36.0); Mean Corpuscular Hemoglobin 27.8 pg (27.0-31.0); Mean Corpuscular Volume 85.1 fL (78.0-98.0); Mean Platelet Volume 9.3 fL (7.4-10.4); Platelet Count 227 thou/uL (130-400); RBC Distribution Width 17.5 % (11.5-14.5); Red Blood Cell (RBC) Count 5.31 mill/uL (4.70-6.10)
[2018-05-11 13:57] LABS: ALT (SGPT) 9 U/L (8-55); AST (SGOT) 15 U/L (5-34); Albumin 3.2 g/dL (3.4-4.8); Alkaline Phosphatase 93 U/L (40-150); Anion Gap 18 mmol/L (10-20); BUN (Urea Nitrogen) 35 mg/dL (8.4-25.7); Bilirubin, Total 1.3 mg/dL (0.2-1.2); Calc. Creatinine Clearance 0 mL/min (70-130); Calcium 8.6 mg/dL (7.8-10.44); Carbon Dioxide 23 mmol/L (23-31); Chloride 93 mmol/L (98-107); Estimated GFR-MDRD 46; Globulin 4.6 g/dL (2.4-3.5); Glucose 128 mg/dL (80-115); Lipase Less than 4 U/L (8-78); Potassium 4.1 mmol/L (3.5-5.1); Protein, Total 7.8 g/dL (5.8-8.1); Sodium 130 mmol/L (136-145)
[2018-05-11 14:06] LABS: Anisocytosis SLIGHT = 6-15 cells (100X) (0-5/hpf); Band 19 % (5-11); Eosinophils 1 % (0-10); Lymphocytes 44 % (21-51); MDiff Complete? YES; Monocytes 16 % (0-10); Neutrophil 20 % (42-75); PLT Morphology Comment Appears Adequate
--- NOTE | 2018-05-11 14:22 | CT ---
CT ABDOMEN AND PELVIS WITH IV CONTRAST: Date: 05/11/18 HISTORY: Diffuse abdominal pain and hypovolemic shock. COMPARISON: CTA abdomen on 05/07/18. FINDINGS: There has been interval resolution of the right pleural effusion. However, there is a persistent smal l left pleural effusion and atelectasis. The esophagus is fluid-filled, and the stomach is also mildly distended and fluid-filled. There are d ilated loops of small bowel measuring up to 3.9 cm in diameter. Dilated loops of bowel extend to the right inguinal region where there is a right inguinal hernia, incompletely imaged, but this inguinal hernia does contain loops of small bowel with transition point at the level of the hernia. Small louise l loops just distal to the hernia are more normal in caliber. There is mild inflammatory stranding and a small amount of fluid seen within the right lower quadrant with a tiny amount of fluid seen within the region of the right inguinal hernia only partially image d. Calcified granulomata are seen in the spleen. The liver, pancreas, bilateral adrenal glands, kidneys, and incompletely distended urinary bladder de monstrate a normal CT appearance. Small, fat-containing left inguinal canal is present. No fluid collection or lymphadenopathy is seen in the abdomen or pelvis. Vascular calcifications present in the abdominal aorta and iliac arteries. There is a small midline ventral abdominal wall hernia in the epigastric region just below the xiphoi d process. IMPRESSION: 1. High grade small bowel obstruction secondary to right inguinal hernia, which contains loops of sm all bowel. Small amount of fluid and stranding is seen within the region of the right inguinal hernia and adjacent to loops of small bowel in the right pelvis. 2. Small left pleural effusion. 3. Resolution of right pleural effusion. Above findings discussed with JESSICA Barahona, in the emergency department on 05/11/18 at 1357 hour s. CODE CR. POS: [facility]
[2018-05-11 14:42] LABS: Bilirubin Large (Negative); Blood, Urine Negative (Negative); Clarity CLOUDY (Clear); Glucose, Urine (Dipstick) Negative (Negative); Leukocyte Small (Negative); Nitrite Negative (Negative); Protein, Urine (Dipstick) 100 mg/dL (Neg-Trace); Specific Gravity, Urine 1.026 (1.002-1.036)
[2018-05-11 14:48] LABS: Hyaline Casts/LPF 0-3 HYALINE CAST LPF (0-3 Hyaline); Pathc Cast-AUWi Flag 12.35 (0-2.49)
[2018-05-11 14:58] LABS: Renal Epithelial None Seen HPF (0-3); Transitional Epithelial NONE SEEN HPF (0-3)
[2018-05-11 14:59] LABS: Bacteria/HPF 1+ HPF (None Seen); Manual Microscopic Reviewed? No Path Casts Seen
[2018-05-11] MEDS ORDERED: ISOVUE-370 76%-LOCM 1 ML ONE (15:05)
[2018-05-11] MEDS ORDERED: Norepinephrine 8 MG/0.9% NS 0 ML ONE (15:35)
[2018-05-11] MEDS ORDERED: Lidocaine 2% Jelly 5 ML TUBE ONE (15:46)
[2018-05-11] MEDS ORDERED: Benzocaine 20% Spray 60 ML CAN ONE (15:46)
[2018-05-11] MEDS ORDERED: Succinylcholine Chloride 20 MG/ML 10 ml SYRINGE FS ONE (16:19)
[2018-05-11] MEDS ORDERED: Vecuronium 10 MG VIAL ONE (16:19)
[2018-05-11] MEDS ORDERED: CEFAZOLIN 1 GM VIAL ONE (16:19)
[2018-05-11] MEDS ORDERED: PHENYLEPHRINE-NS 100 MCG/ML 10 ML SYRINGE ONE (16:19)
[2018-05-11] MEDS ORDERED: Sterile Water 10 ML VIAL ONE (16:19)
[2018-05-11] MEDS ORDERED: Calcium Chloride 1 GM/10 ML Abboject SYRINGE ONE (16:19)
[2018-05-11] MEDS ORDERED: PROPOFOL 200 MG/20 ML VIAL ONE (16:19)
[2018-05-11] MEDS ORDERED: Fentanyl 100 MCG/2 ML VIAL ONE (17:01)
[2018-05-11] MEDS ORDERED: Sodium Bicarb 50 MEQ/50 ML Abboject 8.4% SYRINGE ONE (17:02)
[2018-05-11] MEDS ORDERED: KETAMINE 100 MG/ML (5ML VIAL) ONE (17:02)
[2018-05-11] MEDS ORDERED: Albumin 5% 0 ML ONE (17:02)
[2018-05-11] MEDS ORDERED: Norepinephrine 8 MG/0.9% NS 250 ML ONE (17:03)
[2018-05-11] MEDS ORDERED: Phenylephrine HCL 10 MG/ML VIAL ONE (17:03)
[2018-05-11] MEDS ORDERED: CEFAZOLIN 2 GM/50 ML BAG ONE (17:07)
--- NOTE | 2018-05-11 17:22 | RAD ---
ABDOMEN ONE VIEW: 05/11/18 HISTORY: NG tube placement. COMPARISON: Abdomen CT same day. FINDINGS: Enteric tube is in place with tip projecting over the gastric body. There appears to be high density material extrinsic to the patient projecting over the left hemiabdomen obscuring its view. IMPRESSION: Enteric tube tip projecting over the gastric body. POS: [facility]
--- NOTE | 2018-05-11 17:23 | RAD ---
PORTABLE CHEST 1 VIEW: Date: 05/11/18 Time: 1616 hours HISTORY: Central venous catheter placement. FINDINGS/IMPRESSION: Comparison made with exam of 05/07/18. There has been interval placement of an endotracheal tube with tip just below the level of the clavic ular heads. A nasogastric tube can be traced into the stomach. There is a right internal jugular cent ral line with tip in the projection of the SVC. The heart size is enlarged. There is pulmonary vascul ar congestion. No definite pneumothorax is seen. POS: [facility]
[2018-05-11] MEDS ORDERED: Dextrose 50% Abboject 50 ML SYRINGE SLOW IVP PRN (17:34)
[2018-05-11] MEDS ORDERED: Dextrose 5% in Water 1,000 ML IV PRN (17:34)
[2018-05-11] MEDS ORDERED: HumaLOG 300 UNITS/3 ML VIAL SC PRN ×2 (17:34)
[2018-05-11 17:50] LABS: Lactic Acid 2.5 mmol/L (0.5-2.2)
[2018-05-11] MEDS ORDERED: Piperacillin/Tazobactam 3.375 GM VIAL ONE (18:38)
[2018-05-11] MEDS ORDERED: Midazolam HCl 2 mg/2 ml Vial ONE (19:25)
[2018-05-11] MEDS ORDERED: Propofol 1,000 MG/100 ML VIAL IV ONE (20:47)
[2018-05-11] MEDS ORDERED: Morphine 2 MG/ML SYRINGE SLOW IVP PRN (21:31)
[2018-05-11] MEDS ORDERED: Fentanyl CADD 250 ML IVPB SCH (21:31)
[2018-05-11] MEDS ORDERED: Fentanyl BOLUS 250 ML IVPB PRN (21:31)
[2018-05-11] MEDS ORDERED: DISCONTINUE PREVIOUS NARCOTIC PAIN MEDICATIONS AND BENZODIAZEPINES FS SCH (21:31)
[2018-05-11] MEDS ORDERED: Propofol BOLUS 1,000 MG/100 ML VIAL IV PRN (21:31)
[2018-05-11] MEDS ORDERED: fentaNYL Citrate/PF 2,000 MCG in Sodium Chloride 0.9% 60 ML IV SCH (21:31)
[2018-05-11] MEDS ORDERED: Propofol 1,000 MG/100 ML VIAL IV PRN (21:31)
--- NOTE | 2018-05-11 21:42 | RAD ---
CHEST ONE VIEW: 05/11/18 HISTORY: Ventilated patient. COMPARISON: Radiograph same day. FINDINGS: The heart size is enlarged. Endotracheal tube tip at the level of the clavicles. Central venous adam ter tip not well seen. Mild to moderate edema. Small effusions. No pneumothorax. IMPRESSION: Endotracheal tube tip at the level of the clavicles. POS: [facility]
[2018-05-11 21:45] LABS: Analyzer IN Cardio ER; Base Excess (BEa) -4.1 mEq/L (-2.0 to +3.0); Calcium, Ionized 1.01 mmol/L (1.12-1.30); Carboxyhemoglobin (COHb) 1.5 gm% (0.0-3.0); Hemoglobin (Hb) 13.5 g/dL (14.0-18.0); O2 Tension (PaO2) 114.8 mmHg (> 80.0); Potassium - ABG Lab 3.64 mmol/L (3.70-5.30); pH, Arterial 7.32 (7.35-7.45)
[2018-05-11 21:48] LABS: Puncture Site ALINE
[2018-05-11 21:57] LABS: Hemoglobin 13.1 g/dL (14.0-18.0); Mean Corpuscular HGB CONC 32.5 g/dL (32.0-36.0); Mean Corpuscular Hemoglobin 27.7 pg (27.0-31.0); Mean Platelet Volume 9.7 fL (7.4-10.4); Platelet Count 201 thou/uL (130-400); RBC Distribution Width 17.5 % (11.5-14.5); Red Blood Cell (RBC) Count 4.72 mill/uL (4.70-6.10); White Blood Cell (WBC) Count 4.9 thou/uL (4.8-10.8)
--- NOTE | 2018-05-11 22:11 | HP ---
CHIEF COMPLAINT: Incarcerated right inguinal hernia, hypertension. HISTORY OF PRESENT ILLNESS: The patient is a 62-year-old morbidly obese male with a history of congestive heart failure. He was just hospitalized from May 07 to May 09. He was felt to have issues related to his congestive heart failure. He had a cardiology consultation with his blade groover, Dr. Madera, while he was here. He also had some abdominal pain and apparently, an ultrasound was obtained before he was discharged showing gallstones and outpatient followup regarding this was recommended. The patient apparently went to his primary care physician today, who recommended he present to the emergency room. I cannot get a clear history as to exactly why. The patient tells me he has diffuse abdominal pain. I did not get a history of whether he had vomited or not. Here in the emergency room, he was found to be hypotensive with a systolic blood pressure in the 60s. He has been given a couple liters of fluid and a right internal jugular central line was placed by Dr. Bryant. A CT scan of his abdomen was obtained revealing a large right inguinal hernia with loops of bowel present within it. There is findings consistent with bowel obstruction and distended stomach. It appears that his large right inguinal hernia is a source of his bowel obstruction. The patient has been placed on Levophed to help his blood pressure. I am consulted in regard to his hernia. PAST MEDICAL HISTORY: Congestive heart failure, coronary artery disease, history of myocardial infarction, diabetes mellitus type 2, hyperlipidemia, hypertension, morbid obesity, noncompliance. He does not give a history of stroke, but there is evidence of one in his left frontal region of the brain from a recent CT scan. PAST SURGICAL HISTORY: Coronary artery bypass graft, right shoulder surgery. MEDICATIONS: From his last admission listed was, 1. Aspirin. 2. Lipitor. 3. Coreg. 4. Pepcid. 5. Lasix. 6. Lantus insulin. 7. Lisinopril. 8. Metformin. ALLERGIES: NO KNOWN DRUG ALLERGIES. PERSONAL AND SOCIAL HISTORY: He is not and never has been. He has no children. He lives at home with a niece. He smoked, but quit 6 years ago. He denies alcohol intake. He denies illegal drugs. He is disabled apparently secondary to psychiatric issues. He tells me he did see [facility] for this, but has not recently and is not sure if he has taken any psychiatric medications. FAMILY HISTORY: Noncontributory. REVIEW OF SYSTEMS: Unremarkable. PHYSICAL EXAMINATION: VITAL SIGNS: He is afebrile. Pulse is 100, blood pressure most recently when I was in the room was 105/60. This may be with him on low-dose Levophed. GENERAL: A well-developed, well-nourished, morbidly obese male, resting in bed. He is alert and oriented x3, and cooperative. HEAD, EYES, EARS, NOSE, AND THROAT: Unremarkable. NECK: Supple. LUNGS: Clear to auscultation anteriorly. CARDIAC: Regular rate and rhythm. ABDOMEN: Obese. He has mild diffuse tenderness, but no focal tenderness that I can discern. : He has normal male genitalia. He is obese, so even though it is a very large right inguinal hernia, it is not immediately visible. It is easily palpable and with multiple attempts to reduce, I cannot reduce this hernia. EXTREMITIES: Unremarkable. LABORATORY DATA: White blood cell count is 7.0 with a hemoglobin of 14.8. He does have 20% neutrophils and 44% lymphocytes. His metabolic profile reveals his BUN and creatinine are elevated at 35 and 1.5. These are up from 2 days ago when he was in the hospital. His bilirubin is slightly elevated at 1.3. Albumin is a little low at 3.2, but stable. Lipase is normal. ASSESSMENT AND PLAN: The patient with what appears to be an incarcerated right inguinal hernia leading to a bowel obstruction. He has multiple comorbidities and underlying cardiac disease. All of this is leading to his hypotension and I am not certain. For now, I would recommend repair of his hernia as this certainly could be contributory both to his bowel obstruction as well as potentially ischemia that may cause him to decompensate. I discussed the operation in detail with the patient, as well as potential risks. He understands and agrees to proceed with surgery. Due to his multiple medical problems, I will have the hospitalist service consult on him to assist with medical management. Job ID: [id number]
[2018-05-11 22:12] LABS: Anion Gap 18 mmol/L (10-20); BUN (Urea Nitrogen) 40 mg/dL (8.4-25.7); Calc. Creatinine Clearance 0 mL/min (70-130); Calcium 8.1 mg/dL (7.8-10.44); Carbon Dioxide 20 mmol/L (23-31); Chloride 100 mmol/L (98-107); Estimated GFR-MDRD 52; Glucose 130 mg/dL (80-115); Potassium 3.9 mmol/L (3.5-5.1); Sodium 134 mmol/L (136-145)
[2018-05-11 22:17] LABS: Band 59 % (5-11); Eosinophils 1 % (0-10); Lymphocytes 8 % (21-51); MDiff Complete? YES; Metamyelocyte 7 % (0-0); Monocytes 15 % (0-10); Neutrophil 10 % (42-75); PLT Morphology Comment Appears Adequate; Toxic Granulation SLIGHT; Vacuoles SLIGHT
[2018-05-11] MEDS ORDERED: Pantoprazole 40 MG VIAL IVP SCH (22:30)
--- NOTE | 2018-05-11 22:50 | CON ---
DATE OF CONSULTATION: PRIMARY CARE PROVIDER: Luiza in [place], [place]. CHIEF COMPLAINT: Abdominal pain. HISTORY OF PRESENT ILLNESS: This is a 62-year-old male who presents to [facility] after apparently presenting to his primary care provider's office for evaluation of increasing and severe abdominal pain. The patient states the pain began in the last 24 hours worsening with associated nausea and vomiting. The patient states the pain is in the right lower quadrant region as well as left upper quadrant. The patient states his last regular meal intake was within the last 24 hours. The patient denied any associated diarrhea. The patient's history is significant for recent admission and discharge on 05/09/2018, undergoing extensive workup after apparently presenting with an unresponsive episode requiring brief CPR. The patient was evaluated by Cardiology and Neurology Service and diagnosed with possible seizure activity. The patient with a long-standing history of noncompliance with chronic conditions to include hypertension, diabetes mellitus, coronary artery disease, and congestive heart failure. The patient states he has been compliant with his current medication regimen and states the only new additional medication is Keppra added by the Neurology Service after concern for potential seizure activity. The patient also with a known abdominal wall hernia, but no previous abdominal surgery or recent intervention. The patient was evaluated in the emergency room, undergoing CT of the abdomen and pelvis showing evidence of small bowel obstruction with potential influence of incarcerated right inguinal hernia. The patient underwent placement of NG tube to low intermittent wall suction as well as given IV fluids. The patient was also noted hypotensive requiring intravenous fluids in addition to norepinephrine for blood pressure control. The patient also underwent placement of a right internal jugular central venous catheter with General Surgery evaluation planning for acute intervention and laparotomy. PAST MEDICAL HISTORY: 1. Morbid obesity. 2. Question of seizure disorder. 3. Systolic congestive heart failure with ejection fraction 25% to 30 %. 4. Ischemic cardiomyopathy. 5. Hypertension. 6. Diabetes mellitus type 2. 7. Hyperlipidemia. 8. Coronary artery disease. 9. Status post brief syncopal event. 10. History of myocardial infarction. 11. Noncompliance. PAST SURGICAL HISTORY: Status post coronary artery bypass grafting. CURRENT MEDICATIONS: 1. Enteric-coated aspirin 81 mg p.o. daily. 2. Lipitor 40 mg p.o. at bedtime. 3. Coreg 3.125 mg p.o. t.i.d. 4. Pepcid 20 mg p.o. daily. 5. Lasix 40 mg p.o. b.i.d. 6. Lantus 12 units subcutaneously at bedtime. 7. Keppra 500 mg p.o. b.i.d. 8. Lisinopril 5 mg p.o. b.i.d. 9. Metformin 500 mg p.o. b.i.d. 10. Protonix 40 mg p.o. daily. ALLERGIES: NO KNOWN DRUG ALLERGIES. FAMILY HISTORY: Positive for hypertension and diabetes mellitus. SOCIAL HISTORY: The patient resides in the [facility]. Former tobacco use, quit 6 years prior to this evaluation. No alcohol or illicit drug use. Lives with his niece. REVIEW OF SYSTEMS: CONSTITUTIONAL: Negative for weight loss or gain, ability to conduct usual activities. SKIN: Negative for rash, itching. EYES: Negative for double vision, pain. ENT/MOUTH: Negative for nose bleeding, neck stiffness, pain, tenderness. CARDIOVASCULAR: Negative for palpitations, dyspnea on exertion, orthopnea. RESPIRATORY: Negative for shortness of breath, wheezing, cough, hemoptysis, fever or night sweats. GASTROINTESTINAL: Negative for poor appetite, abdominal pain, heartburn, nausea, vomiting, constipation, or diarrhea. GENITOURINARY: Negative for urgency, frequency, dysuria, nocturia. MUSCULOSKELETAL: Negative for pain, swelling. NEUROLOGIC/PSYCHIATRIC: Negative for anxiety, depression. ALLERGY/IMMUNOLOGIC: Negative for skin rash, bleeding tendency. Otherwise negative except as stated per HPI. PHYSICAL EXAMINATION: VITAL SIGNS: On admission, blood pressure 88/63, pulse 91, respiratory rate 21, temperature 97.5 degrees Fahrenheit, O2 saturation 93% on room air. GENERAL APPEARANCE: This is a 62-year-old male, ill appearing, alert, lying on the hospital bed. HEENT: Pupils are equal, round, and reactive to light and accommodation. Extraocular muscles are intact. No scleral icterus. No conjunctival injection. Nares patent. NG tube in place with bilious drainage in the suction canister. OP is clear. Teeth in poor repair with multiple areas of dental caries and decay. NECK: Supple. No cervical adenopathy. No thyromegaly. No carotid bruits. No JVD appreciated. Cervical spine with full active and passive range of motion. No meningeal signs noted. CHEST: Diminished breath sounds in the bases bilaterally. CARDIOVASCULAR: S1 and S2 without noted murmur, rub, or gallop. ABDOMEN: Obese with tenderness to palpation diffusely. Bowel sounds diminished in all 4 quadrants. No palpable mass. Landmarks are difficult to palpate due to patient's body habitus. EXTREMITIES: Warm and dry with fair turgor. Chronic venous stasis changes of the bilateral lower extremities with edema to the mid shins bilaterally. Pulses palpable distally at the dorsalis pedis, posterior tibial, and popliteal arteries bilaterally. Capillary refill is less than 2 seconds. NEUROLOGIC: Cranial nerves 2 through 12 are grossly intact. No focal or lateralizing signs appreciated. PERTINENT LAB AND X-RAY FINDINGS: Sodium 130, potassium 4.1, chloride 93, CO2 of 23, BUN 35, creatinine 1.54, estimated GFR of 46, glucose 128. Lactic acid level 2.6. Total bilirubin 1.3, AST 15, ALT of 9, alkaline phosphatase 93, lipase less than 4. CBC showed white blood cell count of 7.0, hemoglobin 15, hematocrit 45, platelet count 227 with 20% neutrophils, 19% bands. Urinalysis showed trace ketones, large bilirubin, small leukocyte esterase with 7 to 10 wbc's per high-power field. CT of the abdomen and pelvis dated 05/11/2018, showed high-grade small bowel obstruction secondary to right inguinal hernia containing loops of small bowel, small left pleural effusion, resolution of right pleural effusion. Portable chest x-ray dated 05/11/2018, by my review shows prominent pulmonary vasculature with limited views of the lung araya due to positional changes in rotation. Poor quality radiographs. ASSESSMENT AND PLAN: 1. Acute small-bowel obstruction. The patient will be admitted to the surgical floor. General Surgery consulted in the emergency room. Current plans are for urgent laparotomy given CT findings as noted previously. N.p.o. status. We will continue intravenous normal saline and monitor clinical response. NG tube placed to low intermittent wall suctioning. 2. Septic shock. We will continue aggressive supportive management. Zosyn 3.375 g IV every 6 hours. Vancomycin 1 g IV q.12 hours. Continue serial lactate monitoring. 3. Hypotension. We will continue IV fluid resuscitation in addition to norepinephrine to maintain blood pressure greater than or equal to 100 systolic. 4. Acute kidney injury. Continue IV fluids and avoid nephrotoxic agents and limit contrast exposure. Repeat creatinine in the a.m. 5. Ischemic cardiomyopathy with ejection fraction of 25% to 30%. Continue to monitor fluid status. Strict I's and O's and daily weight. 6. Hyponatremia. Appears chronic in review of electronic medical record. Repeat sodium level in the a.m. 7. Diabetes mellitus type 2, insulin requiring. Insulin sliding scale for reflexive coverage. Accu-Cheks a.c. and at bedtime. 8. Prophylaxis. Sequential compression devices while in bed. Protonix 40 mg IV daily. 9. Code status is full. Surrogate medical decision maker is the patient's niece. Thank you for the consultation. We will continue to follow with Primary Service. Job ID: [id number]
[2018-05-11] MEDS: Piperacillin/Tazobactam 3.375 GM in Sodium Chloride 0.9% 100 ML IVPB SCH (23:28)
[2018-05-11] MEDS: Dextrose 5%-Lactated Ringers 1,000 ML IV SCH (23:29)
[2018-05-11] MEDS: Lorazepam 2 MG/ML VIAL SLOW IVP PRN (23:29)
[2018-05-12] MEDS: Lorazepam 2 MG/ML VIAL SLOW IVP PRN (02:38)
--- NOTE | 2018-05-12 03:19 | OP ---
DATE OF PROCEDURE: 05/11/2018 PREOPERATIVE DIAGNOSIS: Small bowel obstruction secondary to incarcerated right inguinal hernia with possible strangulated right inguinal hernia. POSTOPERATIVE DIAGNOSIS: Strangulated right inguinal hernia. OPERATIONS PERFORMED: Right inguinal hernia repair without mesh, laparotomy with segmental small bowel resection. ANESTHESIA: General endotracheal. INDICATIONS: The patient is a morbidly obese, chronically ill, 62-year-old male, who presented to the emergency room with complaint of abdominal pain and was found to be hypotensive upon arrival. He was fluid resuscitated. CT scan indicated a small bowel obstruction that appeared to originate from the right inguinal hernia. I was unable to reduce this in the emergency room and recommended urgent operative exploration. DESCRIPTION OF OPERATION: Informed consent was obtained. The patient was taken to the operating room, where general endotracheal anesthesia was obtained with the patient in supine position. Of note, he was on low-dose pressors when he came to the room. His groin was trimmed of hair, prepped with ChloraPrep, and draped in sterile fashion. Local anesthetic was infiltrated using 0.25% Marcaine with epinephrine. Oblique right inguinal incision was created and dissection was carried through skin and subcutaneous tissue onto the underlying hernia sac. This was dissected circumferentially and dissected off the associated cord structures. This was a very thick edematous hernia sac. I then identified the fascia and incised the fascia parallel to its fiber so as to open the external ring. The hernia was dissected back to what was obviously the direct space. This was medial to the cord structures. I opened the hernia sac and found segment, thought a segment of intestine that had reduced into the abdominal cavity. I attempted to withdraw an adequate amount of intestine through the hernia defect to be able to perform the resection through the groin incision, but I could not. I therefore passed the intestine back into the abdominal cavity. The sac was ligated with 0 Vicryl suture. It was passed back below the fascia into the preperitoneal space and the fascia was digitally dissected. I then closed the defect in the direct space with several interrupted [id number] sutures of 2-0 Prolene. The fascia was then closed with a running suture of 2-0 Vicryl. The wound was irrigated and closed in layers with 3-0 Vicryl and skin nathalie. Attention was then turned to the abdomen. The abdomen was prepped with ChloraPrep and draped in sterile fashion. Isaacs catheter was placed. A midline incision was created and dissection was carried through skin and subcutaneous tissue down to the fascia. The patient has an umbilical hernia and this was dissected and the fascia on the patient's right side was opened to give access to the hernia closure. The dissection was carried into the abdominal cavity. There was noted to be the ischemic/gangrenous section of small bowel and proximal to this, it was extremely dilated. I milked small bowel contents back into the stomach and these were aspirated through the nasogastric tube. 2-1/2 L of NG aspirate was removed. I selected segments of the small bowel that were viable proximal and distal to the area that was gangrenous. I performed a double-stapled anastomosis at that location using the STONEY-75 stapler. The intervening mesentery was then taken down using the LigaSure Max device. The anastomosis was buttressed with interrupted sutures of 3-0 silk. The mesenteric defect was closed with a running suture of 3-0 Vicryl. The intestine was returned to the abdominal cavity. The abdomen was irrigated with 2 L of saline and all irrigant was aspirated. Of note, there had been no spillage and no foul smell, intraabdominal. Two sheets of Seprafilm were placed under the fascia and the fascia was then closed using running suture of looped #1 PDS beginning from the top and bottom and tied in the middle. Rae fascia was approximated with interrupted sutures of 3-0 Vicryl and the skin edges were approximated with skin nathalie. Telfa jose luis were placed between the skin nathalie. Dry gauze dress was placed externally. There were no complications with the operation. Blood loss had been negligible throughout. He was taken to the intensive care unit in critical condition and that he was still requiring pressors and is still on the ventilator. Job ID: [id number]
[2018-05-12 05:11] LABS: Hemoglobin 12.1 g/dL (14.0-18.0); Mean Corpuscular HGB CONC 31.9 g/dL (32.0-36.0); Mean Corpuscular Hemoglobin 27.3 pg (27.0-31.0); Mean Corpuscular Volume 85.5 fL (78.0-98.0); Mean Platelet Volume 9.4 fL (7.4-10.4); Platelet Count 192 thou/uL (130-400); RBC Distribution Width 17.3 % (11.5-14.5); Red Blood Cell (RBC) Count 4.43 mill/uL (4.70-6.10)
[2018-05-12 05:24] LABS: Anion Gap 16 mmol/L (10-20); BUN (Urea Nitrogen) 41 mg/dL (8.4-25.7); Calc. Creatinine Clearance 95 mL/min (70-130); Calcium 7.9 mg/dL (7.8-10.44); Carbon Dioxide 22 mmol/L (23-31); Chloride 100 mmol/L (98-107); Estimated GFR-MDRD 51; Glucose 159 mg/dL (80-115); Potassium 3.4 mmol/L (3.5-5.1); Sodium 135 mmol/L (136-145)
[2018-05-12] MEDS: Piperacillin/Tazobactam 3.375 GM in Sodium Chloride 0.9% 100 ML IVPB SCH ×4 (05:34→23:33)
[2018-05-12 05:38] LABS: Band 45 % (5-11); Eosinophils 2 % (0-10); Lymphocytes 15 % (21-51); MDiff Complete? YES; Metamyelocyte 7 % (0-0); Monocytes 25 % (0-10); Myelocyte 1 % (0-0); Neutrophil 5 % (42-75); Toxic Granulation SLIGHT
[2018-05-12] MEDS: Dextrose 5%-Lactated Ringers 1,000 ML IV SCH ×2 (06:34→17:37)
--- NOTE | 2018-05-12 07:07 | CON ---
DATE OF CONSULTATION: HISTORY OF PRESENT ILLNESS: Mr. Fu is a 62-year-old male, who underwent a repair of an inguinal hernia with bowel incarceration and then resection of bowel. I was consulted to assist in his management. PAST MEDICAL HISTORY: Remarkable for, 1. Obesity. 2. Recent hospitalization for altered mental status and CPR, leading to a diagnosis of possible seizure activity. 3. History of hypertension. 4. Diabetes. 5. History of cardiomyopathy. 6. History of lipid disorder. 7. Reported history of poor medical compliance in the past. 8. History of coronary artery bypass grafting. MEDICATIONS PRIOR TO ADMISSION: He was on, 1. Aspirin. 2. Lipitor. 3. Coreg. 4. Pepcid. 5. Lasix. 6. Lantus. 7. Keppra. 8. Lisinopril. 9. Metformin. 10. Protonix. ALLERGIES: HE HAS NO REPORTED DRUG ALLERGIES. FAMILY HISTORY: Positive for diabetes and hypertension. Negative for lung disease in early age. He quit smoking 6 years ago. He is not a drinker. He does not use drugs. Lives in [place]. REVIEW OF SYSTEMS: Not obtainable. He is intubated. PHYSICAL EXAMINATION: VITAL SIGNS: No vital signs entered in the computer other than pulse in the 90s. When I evaluated him, he had a blood pressure in the high 80s to low 90s. Respiratory rate is per mechanical ventilation. HEENT: His pupils are equal. NECK: His neck was supple. LUNGS: Clear. HEART: Regular rhythm. S1 and S2 normal. ABDOMEN: Soft and distended and bandaged. EXTREMITIES: Without clubbing, cyanosis, or edema. LABORATORY DATA: White count is 4.9, hemoglobin 13.1, platelets 201. PH 7.32, CO2 of 44, PO2 of 114, on tidal volume of 600, FiO2 of 40%, rate of 15. Sodium 134, potassium 3.9, chloride 100, bicarb 20, BUN 40, and creatinine 1.39. IMPRESSION: 1. Status post laparotomy, resection of bowel, repair of an inguinal hernia. 2. Postoperative mechanical ventilation. Hopefully, we will be able to consider extubation in the morning. He has radiographic finding suggestive of mild pulmonary edema, but this may not prevent us from extubating in the morning. We will be happy to follow with the other physicians caring for him. TIME SPENT: Critical care time 30 minutes. Job ID: [id number]
[2018-05-12 07:24] LABS: Actual Bicarbonate (HCO3a) 22.4 mEq/L (22-28); Base Excess (BEa) -1.4 mEq/L (-2.0 to +3.0); CO2 Tension 34.8 mmHg (35.0-45.0); Calcium, Ionized 1.04 mmol/L (1.12-1.30); Carboxyhemoglobin (COHb) 1.4 gm% (0.0-3.0); Hemoglobin (Hb) 12.7 g/dL (14.0-18.0); O2 Tension (PaO2) 119.3 mmHg (> 80.0); Potassium - ABG Lab 3.55 mmol/L (3.70-5.30); pH, Arterial 7.43 (7.35-7.45)
[2018-05-12] MEDS: Pantoprazole 40 MG VIAL IVP SCH (10:16)
--- NOTE | 2018-05-12 11:05 | PRG ---
DATE OF SERVICE: 05/12/2018 SUBJECTIVE: Mr. Fu is postoperative day #1 from repair of a strangulated right inguinal hernia. I did perform a laparotomy to perform a segmental small bowel resection. His hernia was repaired without mesh. Due to his instability, he has been in the Intensive Care Unit on ventilator. He has been on pressors overnight and is most recently on Levophed at a rate of 8. His nurse notes that she is beginning to wean this down. He is alert and seems as though he is trying to communicate, but it is difficult to discern if he is oriented or not currently. OBJECTIVE: VITAL SIGNS: On examination, he is afebrile with a temperature of 99.1, his pulse is 89, blood pressure on pressor support is 104/53. His urine output overnight was mL. He had 400 mL out of his nasogastric tube. LUNGS: Clear to auscultation. ABDOMEN: Soft with dressings intact both on his right groin and his midline incision. There are no bowel sounds appreciable. LABORATORY DATA: His CBC from this morning reveals a white blood cell count of 5 with a hemoglobin of 12.1. He does have 45% bandemia. His chemistry profile reveals minor electrolyte abnormalities. His BUN is stable at 41 and creatinine is stable at 1.4. Glucose is between 117 and 159. ASSESSMENT AND PLAN: The patient appears to be appropriately stable following his small intestine resection repair of a strangulated hernia. He has multiple underlying comorbidities with congestive heart failure, obesity, diabetes, etc. Dr. Huggins is assisting with critical care and ventilator management. I believe he tentatively plans to extubate him later today. Hopefully, the patient's pressor support will be minimal at that time. For now, he certainly needs to continue with nasogastric tube as he will have an anticipated postoperative ileus secondary to the resection and the extensive small bowel distention that was present. We will continue him on IV fluids, IV antibiotics, and monitor his care. Of note, I will be out of town for the next week and Dr. Rios will be assuming this patient's care. Job ID: [id number]
[2018-05-12] MEDS ORDERED: Fentanyl 100 MCG/2 ML VIAL ONE (11:16)
--- NOTE | 2018-05-12 12:11 | RAD ---
RADIOGRAPH CHEST 1 VIEW: Date: 05/12/2018. Time: 9:06 a.m. HISTORY: A 62-year-old male with respiratory failure. COMPARISON: 05/11/2018, 9:06 p.m. FINDINGS: Endotracheal tube, NG tube, and central vascular catheter descending from the right neck, remain. St ernotomy wires. Cardiomegaly. Pulmonary venous engorgement. Diffuse prominent interstitial marking s which could represent mild pulmonary interstitial edema. The retrocardiac portion of the left lowe r lobe is more densely opacified now, with complete silhouetting of the left hemidiaphragm. The venita ent is rotated to the left. IMPRESSION: 1. No significant interval change in the degree of congestive heart failure. 2. No change in life support lines. 3. Interval worsening of aeration of the left lower lobe. RUFUS [] POS: SANJEEV
[2018-05-12] MEDS ORDERED: diphenhydrAMINE 25 MG CAP PO PRN (13:36)
[2018-05-12] MEDS ORDERED: diphenhydrAMINE 50 MG/ML VIAL IM/IV PRN (13:36)
[2018-05-12] MEDS ORDERED: Naloxone HCl 0.4 mg/ml Vial IV PRN (13:36)
[2018-05-12] MEDS ORDERED: Promethazine HCl 25 MG/ML VIAL IM PRN (13:36)
[2018-05-12] MEDS ORDERED: Zolpidem Tartrate 5 MG TAB PO PRN (13:36)
--- NOTE | 2018-05-12 14:29 | PRG ---
DATE OF SERVICE: 05/12/2018 SUBJECTIVE: Mr. Fu is awake and alert. His minute volume was 16 L a minute, but I believe that much of is pain mediated. He may have some abdominal third spacing. His chest radiograph shows haziness at the left base, which likely is an effusion given his laparotomy and his history of cardiomyopathy. OBJECTIVE: LUNGS: Clear anteriorly. HEART: Regular rhythm. ABDOMEN: Soft. EXTREMITIES: Without asymmetry or edema. LABORATORY DATA: White count 5, hemoglobin 12.1, platelets 192, 45% bands on his peripheral smear and he had 59% yesterday. Sodium 135, potassium 3.4, chloride 100, bicarb 22, BUN 41, creatinine 1.4, and glucose 159. IMPRESSION: Postop mechanical ventilation, minute volume was 15 to 16 L a minute. After some pain medicine, it had dropped down to about 12 to 13 L a minute. I felt he is a candidate for extubation. This has been done successfully. Hopefully, we can get a FEED MILL MANAGER pump running and get his pain under control and I suspect he will be better. With his cardiomyopathy, we will need to pay careful attention to his intake and output. His data control assistant should be consulted to follow along with this. Critical care time 30 minutes. Job ID: [id number]
--- NOTE | 2018-05-12 15:04 | PDOC.PN ---
- Subjective Encounter Start Date: 05/12/18 Encounter Start Time: 15:00 Subjective: f/u for incarcerated R inguinal hernia with SBO and septic shock s/p -: inguinal hernia repair with small bowel resection POD #1. Extubated per -: nursing remaining on Levophed. - Objective MAR Reviewed: Yes Vital Signs & Weight: Vital Signs (12 hours) Temp Pulse Resp BP Pulse Ox 05/12/18 12:15 108 H 34 H 98 05/12/18 11:27 107 H 108/95 H 05/12/18 10:00 28 H 05/12/18 08:00 99.1 F 26 H 100 05/12/18 07:05 91 105/43 L 05/12/18 06:00 25 H 05/12/18 04:00 98.4 F 15 Weight Admit Weight 270 lb Weight 270 lb 11.642 oz Most Recent Monitor Data Heart Rate from ECG 105 NIBP 88/47 NIBP BP-Mean 60 Respiration from ECG 28 SpO2 94 I&O: 05/11/18 05/12/18 05/13/18 06:59 06:59 06:59 Intake Total 1177 Output Total 1215 595 Balance -38 -595 Result Diagrams: 05/12/18 03:50 05/12/18 03:50 Additional Labs: Accuchecks 05/12/18 05/11/18 05/11/18 03:51 20:15 19:18 POC Glucose 150 H 122 H 117 H 05/11/18 17:50 POC Glucose 117 H Microbiology 05/11/18 13:22 Venous blood - Right Arm Blood Culture - Preliminary Specimen has been received and culture in progress. No Growth to date. 05/11/18 13:14 Venous blood - Right Hand Blood Culture - Preliminary Streptococcus species Laboratory Tests 05/11/18 05/11/18 05/11/18 13:22 13:22 17:02 Band Neuts % (Manual) 19 H Sodium Potassium BUN Creatinine Lactic Acid 2.6 H 2.5 H 05/11/18 05/11/18 05/12/18 21:40 21:40 03:50 Band Neuts % (Manual) 59 H 45 H Sodium 134 L Potassium 3.9 BUN 40 H Creatinine 1.39 H Lactic Acid Radiology Reviewed by me: Yes (PCXR - decreased aeration LLL) EKG Reviewed by me: Yes (Tele - Sinus tachycardia) Phys Exam - Physical Examination ill-appearing, sallow, NGT in place HEENT: PERRLA, sclera anicteric, oral pharynx no lesions Neck: no nodes, no JVD, supple, full ROM diminished in bases Respiratory: no wheezing, no rhonchi tachycardia S1, S2 Cardiovascular: no significant murmur, no rub mild distention diminished bowel sounds, surgical dressings in place Gastrointestinal: non-tender Musculoskeletal: pulses present, edema present Neurological: moves all 4 limbs Skin: normal turgor, cap refill <2 seconds Deviation from normal: Isaacs with dark urine Dx/Plan (1) Septic shock Code(s): A41.9 - SEPSIS, UNSPECIFIED ORGANISM; R65.21 - SEVERE SEPSIS WITH SEPTIC SHOCK Status: Acute Comment: Secondary to #2, continue Zosyn, IVF's, wean Levophed as clinically indicated (2) Incarcerated right inguinal hernia Code(s): K40.30 - UNIL INGUINAL HERNIA, W OBST, W/O GANGR, NOT SPCF RECUR Status: Acute Comment: s/p inguinal hernia repair POD #1, pain control (3) SBO (small bowel obstruction) Code(s): K56.609 - UNSP INTESTNL OBST, UNSP TO PARTIAL VERSUS COMPLETE OBST Status: Acute Comment: s/p small bowel resection POD #1, local care, pain control, NGT decompression (4) GABRIELLA (acute kidney injury) Code(s): N17.9 - ACUTE KIDNEY FAILURE, UNSPECIFIED Status: Acute Comment: Persists, avoid nephrotoxic meds and limit contrast exposure, serial creatinine , Isaacs for drainage (5) Diabetes mellitus Code(s): E11.9 - TYPE 2 DIABETES MELLITUS WITHOUT COMPLICATIONS Status: Chronic Comment: ISS, ADA once resuming po intake - Plan continue antibiotics, secondary social studies teacher, respiratory therapy, DVT proph w/SCDs Continue aggressive support -: Wean Levophed as clinically tolerated -: Continue Zosyn -: Continue IVF's -: AM lab: BMP, CBC * .
[2018-05-12] MEDS: Ketorolac Tromethamine 30 MG/ML VIAL IVP SCH ×2 (17:38→23:33)
[2018-05-12] MEDS ORDERED: Potassium Chloride 40 MEQ in Premix Bag 1 BAG IVPB ONE (18:00)
[2018-05-12] MEDS: Norepinephrine 8 MG/250 ML BAG IVPB PRN (19:46)
[2018-05-13] MEDS: Dextrose 5%-Lactated Ringers 1,000 ML IV SCH ×3 (02:20→22:43)
[2018-05-13] MEDS: Piperacillin/Tazobactam 3.375 GM in Sodium Chloride 0.9% 100 ML IVPB SCH ×4 (05:32→22:44)
[2018-05-13] MEDS: Norepinephrine 8 MG/250 ML BAG IVPB PRN ×2 (05:32→22:44)
[2018-05-13] MEDS: Ketorolac Tromethamine 30 MG/ML VIAL IVP SCH ×3 (05:32→17:31)
[2018-05-13 06:09] LABS: Anion Gap 11 mmol/L (10-20); BUN (Urea Nitrogen) 42 mg/dL (8.4-25.7); Calc. Creatinine Clearance 102 mL/min (70-130); Calcium 7.8 mg/dL (7.8-10.44); Carbon Dioxide 27 mmol/L (23-31); Chloride 106 mmol/L (98-107); Estimated GFR-MDRD 56; Glucose 196 mg/dL (80-115); Sodium 140 mmol/L (136-145)
[2018-05-13 06:21] LABS: Anisocytosis SLIGHT = 6-15 cells (100X) (0-5/hpf); Band 26 % (5-11); Eosinophils 5 % (0-10); Hemoglobin 11.6 g/dL (14.0-18.0); Lymphocytes 11 % (21-51); MDiff Complete? YES; Mean Corpuscular Hemoglobin 27.7 pg (27.0-31.0); Mean Corpuscular Volume 86.6 fL (78.0-98.0); Mean Platelet Volume 8.9 fL (7.4-10.4); Metamyelocyte 1 % (0-0); Monocytes 17 % (0-10); Neutrophil 39 % (42-75); PLT Morphology Comment Appears Adequate; Platelet Count 185 thou/uL (130-400); Polychromasia SLIGHT = 2-3 cells (100X) (0-2/hpf); RBC Distribution Width 17.2 % (11.5-14.5); Reactive Lymphocytes 1 % (0-10); Red Blood Cell (RBC) Count 4.18 mill/uL (4.70-6.10); White Blood Cell (WBC) Count 9.4 thou/uL (4.8-10.8)
[2018-05-13] MEDS: Pantoprazole 40 MG VIAL IVP SCH (09:01)
[2018-05-13] MEDS ORDERED: Albumin 25% 25 GM/100 ML BOT IVPB ONE (09:25)
--- NOTE | 2018-05-13 10:06 | PRG ---
DATE OF SERVICE: 05/13/2018 SUBJECTIVE: A 62-year-old gentleman, status post lap. He is doing well. He was extubated yesterday. X-ray shows left lung atelectatic changes from intubation. He apparently has cardiomyopathy. OBJECTIVE: VITAL SIGNS: His saturations are 99% on room air, pulse is 93, blood pressure 103/60, respiratory rate 15. He is on Levophed. CHEST: Bilateral rhonchi and crackles. CARDIAC: Normal S1, S2. No gallops or masses. LABORATORY DATA: White count is 9000, H and H of 11 and 36, platelet count is normal. His creatinine is 1.30. IMPRESSION: 1. Cardiomyopathy. 2. Status post laparotomy. 3. Atelectasis. 4. Renal failure. PLAN: 1. Continue aggressive PT, neb treatments, supportive care. 2. Try and wean off Levophed. We will follow while in the ICU. Job ID: [id number]
[2018-05-13] MEDS: Insulin Regular 300 UNITS/3 ML VIAL SC PRN ×2 (11:22→16:55)
--- NOTE | 2018-05-13 15:56 | PDOC.PN ---
- Subjective Encounter Start Date: 05/13/18 Encounter Start Time: 15:54 Subjective: extubated yesterday and doding well -: wants water.denies any CP/SOB -: RN reports runs of SVt and low BP - Objective MAR Reviewed: Yes Vital Signs & Weight: Vital Signs (12 hours) Temp Pulse Resp Pulse Ox 05/13/18 14:24 77 24 H 05/13/18 12:00 97.7 F 05/13/18 08:00 98.1 F 100 05/13/18 04:00 99.6 F Weight Admit Weight 270 lb Weight 269 lb 6.478 oz Most Recent Monitor Data Heart Rate from ECG 89 NIBP 110/64 NIBP BP-Mean 79 Respiration from ECG 21 SpO2 98 I&O: 05/12/18 05/13/18 05/14/18 06:59 06:59 06:59 Intake Total 1177 2778 Output Total 1216 2030 445 Balance -38 350 -873 Result Diagrams: 05/13/18 05:30 05/13/18 05:30 Additional Labs: Accuchecks 05/13/18 05/13/18 05/12/18 11:15 05:40 21:43 POC Glucose 169 H 186 H 138 H 05/12/18 16:35 POC Glucose 188 H Microbiology 05/11/18 13:22 Venous blood - Right Arm Blood Culture - Preliminary Specimen has been received and culture in progress. No Growth to date. 05/11/18 13:14 Venous blood - Right Hand Blood Culture - Preliminary Streptococcus species Laboratory Tests 05/11/18 05/11/18 05/12/18 13:22 21:40 03:50 Creatinine 1.54 H 1.39 H 1.40 H 05/13/18 05:30 Creatinine 1.30 Phys Exam - Physical Examination Constitutional: NAD slight confusion in and out HEENT: PERRLA, moist MMs, sclera anicteric, oral pharynx no lesions Neck: no nodes, no JVD, supple, full ROM Respiratory: no wheezing, no rales, no rhonchi Cardiovascular: RRR, no significant murmur Gastrointestinal: soft, non-tender, no distention, positive bowel sounds Musculoskeletal: no edema, pulses present Neurological: non-focal, normal sensation, moves all 4 limbs Psychiatric: normal affect Skin: no rash Dx/Plan (1) Septic shock Code(s): A41.9 - SEPSIS, UNSPECIFIED ORGANISM; R65.21 - SEVERE SEPSIS WITH SEPTIC SHOCK Status: Acute Comment: Secondary to #2, continue Zosyn, IVF's, wean Levophed as clinically indicated (2) Incarcerated right inguinal hernia Code(s): K40.30 - UNIL INGUINAL HERNIA, W OBST, W/O GANGR, NOT SPCF RECUR Status: Acute Comment: s/p inguinal hernia repair POD #2, pain control (3) SBO (small bowel obstruction) Code(s): K56.609 - UNSP INTESTNL OBST, UNSP TO PARTIAL VERSUS COMPLETE OBST Status: Acute Comment: s/p small bowel resection POD 2, local care, pain control, NGT decompression (4) NSVT (nonsustained ventricular tachycardia) Code(s): I47.2 - VENTRICULAR TACHYCARDIA Status: Acute Comment: Likley due to ongoing infection with underlying cardiomyopathy (5) Ischemic cardiomyopathy Code(s): I25.5 - ISCHEMIC CARDIOMYOPATHY Status: Chronic Comment: has refused AICD last admission earlier this month (6) Coronary artery disease Code(s): I25.10 - ATHSCL HEART DISEASE OF [place] CORONARY ARTERY W/O ANG PCTRS Status: Chronic (7) Diabetes mellitus type 2 in obese Code(s): E11.69 - TYPE 2 DIABETES MELLITUS WITH OTHER SPECIFIED COMPLICATION; E66.9 - OBESITY, UNSPECIFIED Status: Chronic (8) Dyslipidemia Code(s): E78.5 - HYPERLIPIDEMIA, UNSPECIFIED Status: Chronic (9) HTN (hypertension) Code(s): I10 - ESSENTIAL (PRIMARY) HYPERTENSION Status: Chronic Qualifiers: Hypertension type: essential hypertension Qualified Code(s): I10 - Essential (primary) hypertension Comment: Monitor vital signs, titrate antihypertensives as needed (10) Non compliance w medication regimen Code(s): Z91.14 - PATIENT'S OTHER NONCOMPLIANCE WITH MEDICATION REGIMEN Status : Chronic - Plan continue antibiotics, PT/OT, incentive spirometry, out of bed/ambulate, DVT proph w/SCDs still on levophed.renal Fx has imroved though -: avoid inotropes due to nSVT but mnay consider if BP drops further -: cont IVF carefully given low EF -: Consider repeat cardiology consult.may need anti-arrythmics.refused AICD -: IM team will follow. Blood sugar controlled.am labs * . Review of Systems - Review of Systems Constitutional: weakness, malaise Other: limited due to somnolence - Medications/Allergies Allergies/Adverse Reactions: Allergies Allergy/AdvReac Type Severity Reaction Status Date / Time No Known Drug Allergies Allergy Verified 05/08/18 01:34 Medications: Current Medications Albuterol/Ipratropium (Duoneb) 3 ml NEB [id number] [facility] Last Admin: 05/13/18 14:24 Dose: 3 ml Dextrose/Water (Dextrose 50%) 25 gm SLOW IVP PRN PRN PRN Reason: Hypoglycemia Diphenhydramine HCl (Benadryl) 25 mg IM/IV Q3H PRN PRN Reason: Itching Last Admin: 05/13/18 02:08 Dose: 25 mg Diphenhydramine HCl (Benadryl) 25 mg PO Q3H PRN PRN Reason: Itching Glucagon (Glucagon) 1 mg IM PRN PRN PRN Reason: Hypoglycemia Dextrose/Water (D5w) 1,000 mls @ 0 mls/hr IV .Q0M PRN PRN Reason: Hypoglycemia Dextrose/Lactated Ringer's (D5 Lr) 1,000 mls @ 120 mls/hr IV .Q8H20M [facility] Last Admin: 05/13/18 11:02 Dose: 1,000 mls Norepinephrine Bitartrate (Levophed) 250 mls @ 0 mls/hr IVPB INF PRN; Protocol PRN Reason: Blood Pressure Last Admin: 05/13/18 05:32 Dose: 250 mls Piperacillin Sod/Tazobactam (Sod 3.375 gm/ Sodium Chloride) 100 mls @ 200 mls/ hr IVPB 0500,1100,1700,2300 [facility] Last Admin: 05/13/18 11:02 Dose: 100 mls Fentanyl Citrate 2,000 mcg/ (Sodium Chloride) 100 mls @ 0 mls/hr IV INF PRN PRN Reason: Pain Insulin Human Regular (Humulin R) 0 units SC .MODERATE SLIDING SC PRN; Protocol PRN Reason: MODERATE SLIDING SCALE Last Admin: 05/13/18 11:22 Dose: 2 units Ketorolac Tromethamine (Toradol) 15 mg IVP Q6HR [facility] Stop: 05/14/18 12:01 Last Admin: 05/13/18 11:26 Dose: 15 mg Naloxone HCl (Narcan) 0.2 mg IV Q5MIN PRN PRN Reason: RR <8 or pt obtun/unarousable Ondansetron HCl (Zofran) 4 mg IVP Q6H PRN PRN Reason: Nausea/Vomiting Pantoprazole Sodium (Protonix) 40 mg IVP DAILY [facility] Last Admin: 05/13/18 09:01 Dose: 40 mg Promethazine HCl (Phenergan) 12.5 mg IM Q4H PRN PRN Reason: Nausea/Vomiting Sodium Chloride (Flush - Normal Saline) 10 ml IVF Q12HR [facility] Sodium Chloride (Flush - Normal Saline) 10 ml IVF PRN PRN PRN Reason: Saline Flush Zolpidem Tartrate (Ambien) 5 mg PO HSPRN PRN PRN Reason: Insomnia
--- NOTE | 2018-05-13 18:35 | PRG ---
DATE OF SERVICE: SUBJECTIVE: The patient was seen this morning following repair of strangulated-incarcerated hernia with small bowel resection. He was able to extubate and is maintaining his saturations, but was still having some hemodynamic issues this morning with his blood pressure. He has a Isaacs in place and has been making an adequate amount of urine, and his incisions look okay. His H and H are stable, and blood sugars have been a bit elevated. ASSESSMENT AND PLAN: The patient is doing well from a Surgical standpoint. He still has some hemodynamic issues related to his sepsis, which should resolve. He has a lot of medical issues and we are awaiting return of bowel function. We will continue to follow with the Medical Service and Pulmonology. Job ID: [id number]
[2018-05-14] MEDS: Ketorolac Tromethamine 30 MG/ML VIAL IVP SCH ×3 (01:17→11:41)
--- NOTE | 2018-05-14 02:40 | PRG ---
DATE OF SERVICE: 05/13/2018 HISTORY: Thomas Fu is a 62-year-old male, recently hospitalized with worsening congestive heart failure after running out of his medications. He was placed back on his medications and discharged. He then developed abdominal pain and returned to the hospital. He had a strangulated right inguinal hernia and underwent hernia repair, laparotomy with segmental small bowel resections. He now is in the intensive care unit postoperatively and has been extubated. PHYSICAL EXAMINATION: VITAL SIGNS: Blood pressure is 114/57, pulse is 76. HEENT: PERRL. CHEST: Clear. CARDIAC: S1 and S2 normal without any S3, S4, or murmurs. ABDOMEN: Normal bowel sounds, although they are very hypoactive. EXTREMITIES: Reveal trace pretibial edema. NEUROLOGIC: Grossly intact. IMPRESSION: 1. Status post repair of strangulated hernia. 2. Small bowel obstruction. 3. Severe ischemic cardiomyopathy. 4. Noncompliance. 5. The patient refuses implantable cardioverter-defibrillator. 6. History of coronary artery bypass grafting. PLAN: The patient will be treated with his cardiac medicines as we can on intravenous basis until he can take p.o. again. Job ID: [id number] MTDD
[2018-05-14 05:29] LABS: Anion Gap 9 mmol/L (10-20); BUN (Urea Nitrogen) 32 mg/dL (8.4-25.7); Calc. Creatinine Clearance 152 mL/min (70-130); Calcium 8.2 mg/dL (7.8-10.44); Carbon Dioxide 28 mmol/L (23-31); Chloride 108 mmol/L (98-107); Estimated GFR-MDRD 89; Glucose 193 mg/dL (80-115); Potassium 3.3 mmol/L (3.5-5.1); Sodium 142 mmol/L (136-145)
[2018-05-14 05:41] LABS: Band 13 % (5-11); Burr Cells SLIGHT = 2-5 cells (100X) (0-1/hpf); Eosinophils 7 % (0-10); Hemoglobin 11.8 g/dL (14.0-18.0); Lymphocytes 10 % (21-51); MDiff Complete? YES; Mean Corpuscular HGB CONC 33.5 g/dL (32.0-36.0); Mean Corpuscular Hemoglobin 29.3 pg (27.0-31.0); Mean Corpuscular Volume 87.2 fL (78.0-98.0); Mean Platelet Volume 8.6 fL (7.4-10.4); Monocytes 13 % (0-10); Neutrophil 57 % (42-75); PLT Morphology Comment Appears Adequate; Platelet Count 182 thou/uL (130-400); Poikilocytosis SLIGHT = 6-15 cells (100X) (0-5/hpf); RBC Distribution Width 17.2 % (11.5-14.5); Red Blood Cell (RBC) Count 4.02 mill/uL (4.70-6.10); White Blood Cell (WBC) Count 8.3 thou/uL (4.8-10.8)
[2018-05-14] MEDS: Piperacillin/Tazobactam 3.375 GM in Sodium Chloride 0.9% 100 ML IVPB SCH ×4 (06:13→23:29)
[2018-05-14] MEDS: Dextrose 5%-Lactated Ringers 1,000 ML IV SCH ×3 (06:14→20:54)
[2018-05-14] MEDS: Insulin Regular 300 UNITS/3 ML VIAL SC PRN ×2 (07:46→17:07)
[2018-05-14] MEDS: Pantoprazole 40 MG VIAL IVP SCH (09:13)
--- NOTE | 2018-05-14 09:32 | RAD ---
PORTABLE CHEST 1 VIEW: Date: 05/14/18 Time: 0505 hours HISTORY: Respiratory failure. FINDINGS/IMPRESSION: No significant interval change is seen since the previous day's exam. POS: [email or web address]
[2018-05-14] MEDS ORDERED: Furosemide 40 MG/4 ML VIAL SLOW IVP SCH (09:45)
[2018-05-14] MEDS ORDERED: HumaLOG 300 UNITS/3 ML VIAL SC PRN ×2 (09:55)
[2018-05-14] MEDS ORDERED: Dextrose 5% in Water 1,000 ML IV PRN (09:55)
[2018-05-14] MEDS ORDERED: Dextrose 50% Abboject 50 ML SYRINGE SLOW IVP PRN (09:55)
[2018-05-14] MEDS ORDERED: Potassium Chloride 40 MEQ in Premix Bag 1 BAG IVPB SCH (10:00)
--- NOTE | 2018-05-14 10:23 | PRG ---
DATE OF SERVICE: 05/14/2018 SUBJECTIVE: This morning, he is awake, alert, and responsive. He is off the Levophed. OBJECTIVE: VITAL SIGNS: Blood pressure is 102/58, pulse 89, sats 90% on 2 L, respiratory rate 24. GENERAL: He is awake and responsive. His I's and O's have been 3531 and 1990. CHEST: Extensive crackles. CARDIAC: Normal S1 and S2. No gallops. ABDOMEN: No mass. LABORATORY DATA: White count 8000, H and H 11 and 35, and platelet count is normal. BUN and creatinine are normal. IMPRESSION: 1. End-stage cardiomyopathy. 2. Status post surgery for incarcerated hernia. 3. Low-dose Lasix. The patient refused AICD as per Cardiology. Pulmonary follow while in the ICU. Job ID: [id number]
--- NOTE | 2018-05-14 10:53 | PDOC.PN ---
- Subjective Encounter Start Date: 05/14/18 Encounter Start Time: 10:51 Subjective: feels better.denies any abd pain/N/V.no BM so far -: no overnight events.discussed w RN-still on 3mcg of levophed/hr - Objective MAR Reviewed: Yes Vital Signs & Weight: Vital Signs (12 hours) Temp Pulse Resp Pulse Ox 05/14/18 08:00 97.5 F L 97 05/14/18 06:41 97 05/14/18 06:39 80 27 H 05/14/18 01:13 97 05/14/18 00:00 97.8 F Weight Admit Weight 270 lb Weight 275 lb 2.19 oz Most Recent Monitor Data Heart Rate from ECG 80 NIBP 99/68 NIBP BP-Mean 78 Respiration from ECG 22 SpO2 99 I&O: 05/13/18 05/14/18 05/15/18 06:59 06:59 06:59 Intake Total 2778 3531 Output Total 2029 1989 180 Balance 748 1541 -180 Result Diagrams: 05/14/18 04:50 05/14/18 04:50 Additional Labs: Accuchecks 05/14/18 05/13/18 05/13/18 00:02 16:55 11:15 POC Glucose 159 H 169 H 169 H Microbiology 05/11/18 13:14 Venous blood - Right Hand Blood Culture - Final Alpha-Strep, not S. pneumoniae Alpha-Strep, not S. pneumoniae#2 05/11/18 13:22 Venous blood - Right Arm Blood Culture - Preliminary NO GROWTH AT 48 HOURS Phys Exam - Physical Examination Constitutional: NAD HEENT: PERRLA, moist MMs, sclera anicteric, oral pharynx no lesions Neck: no nodes, no JVD, supple, full ROM Respiratory: no wheezing, no rales, no rhonchi, clear to auscultation bilateral Cardiovascular: RRR, no significant murmur, no rub Gastrointestinal: soft, non-tender, no distention distant bowel sounds.incision healthy & dressed Musculoskeletal: no edema, pulses present Neurological: non-focal, normal sensation, moves all 4 limbs Psychiatric: normal affect, A&O x 3 Dx/Plan (1) Septic shock Code(s): A41.9 - SEPSIS, UNSPECIFIED ORGANISM; R65.21 - SEVERE SEPSIS WITH SEPTIC SHOCK Status: Acute Comment: Secondary to #2, continue Zosyn, IVF's, wean Levophed as clinically indicated (2) Incarcerated right inguinal hernia Code(s): K40.30 - UNIL INGUINAL HERNIA, W OBST, W/O GANGR, NOT SPCF RECUR Status: Acute Comment: s/p inguinal hernia repair POD #2, pain control (3) SBO (small bowel obstruction) Code(s): K56.609 - UNSP INTESTNL OBST, UNSP TO PARTIAL VERSUS COMPLETE OBST Status: Acute Comment: s/p small bowel resection POD 2, local care, pain control, NGT decompression (4) NSVT (nonsustained ventricular tachycardia) Code(s): I47.2 - VENTRICULAR TACHYCARDIA Status: Acute Comment: Likley due to ongoing infection with underlying cardiomyopathy (5) Ischemic cardiomyopathy Code(s): I25.5 - ISCHEMIC CARDIOMYOPATHY Status: Chronic Comment: has refused AICD last admission earlier this month (6) Coronary artery disease Code(s): I25.10 - ATHSCL HEART DISEASE OF [place] CORONARY ARTERY W/O ANG PCTRS Status: Chronic (7) Diabetes mellitus type 2 in obese Code(s): E11.69 - TYPE 2 DIABETES MELLITUS WITH OTHER SPECIFIED COMPLICATION; E66.9 - OBESITY, UNSPECIFIED Status: Chronic (8) Dyslipidemia Code(s): E78.5 - HYPERLIPIDEMIA, UNSPECIFIED Status: Chronic (9) HTN (hypertension) Code(s): I10 - ESSENTIAL (PRIMARY) HYPERTENSION Status: Chronic Qualifiers: Hypertension type: essential hypertension Qualified Code(s): I10 - Essential (primary) hypertension Comment: Monitor vital signs, titrate antihypertensives as needed (10) Non compliance w medication regimen Code(s): Z91.14 - PATIENT'S OTHER NONCOMPLIANCE WITH MEDICATION REGIMEN Status : Chronic - Plan continue antibiotics, PT/OT, respiratory therapy, incentive spirometry, out of bed/ambulate, DVT proph w/SCDs Clinically stable.Levophed being weaned off. -: cardiac meds on hold d/t low BP & NPO status -: Replace Potassium -: Increase ISS for high blood sugar -: refused AICD. * .am labs * IM team will follow Review of Systems - Review of Systems Constitutional: weakness, malaise. negative: fever, chills, sweats, other ENT: negative: Ear Pain, Ear Discharge, Nose Pain, Nose Discharge, Nose Congestion, Mouth Pain, Mouth Swelling, Throat Pain, Throat Swelling, Other Respiratory: negative: Cough, Dry, Shortness of Breath, Hemoptysis, SOB with Excertion, Pleuritic Pain, Sputum, Wheezing Cardiovascular: negative: chest pain, palpitations, orthopnea, paroxysmal nocturnal dyspnea, edema, light headedness, other Gastrointestinal: negative: Nausea, Vomiting, Abdominal Pain, Diarrhea, Constipation, Melena, Hematochezia, Other Genitourinary: negative: Dysuria, Frequency, Incontinence, Hematuria, Retention , Other Musculoskeletal: negative: Neck Pain, Shoulder Pain, Arm Pain, Back Pain, Hand Pain, Leg Pain, Foot Pain, Other Neurological: negative: Weakness, Numbness, Incoordination, Change in Speech, Confusion, Seizures, Other - Medications/Allergies Allergies/Adverse Reactions: Allergies Allergy/AdvReac Type Severity Reaction Status Date / Time No Known Drug Allergies Allergy Verified 05/08/18 01:34 Medications: Current Medications Albuterol/Ipratropium (Duoneb) 3 ml NEB [id number] [facility] Last Admin: 05/14/18 06:39 Dose: 3 ml Dextrose/Water (Dextrose 50%) 25 gm SLOW IVP PRN PRN PRN Reason: Hypoglycemia Diphenhydramine HCl (Benadryl) 25 mg IM/IV Q3H PRN PRN Reason: Itching Last Admin: 05/13/18 02:08 Dose: 25 mg Diphenhydramine HCl (Benadryl) 25 mg PO Q3H PRN PRN Reason: Itching Furosemide (Lasix) 40 mg SLOW IVP ONE [facility] Stop: 05/14/18 11:00 Last Admin: 05/14/18 10:38 Dose: 40 mg Glucagon (Glucagon) 1 mg IM PRN PRN PRN Reason: Hypoglycemia Dextrose/Lactated Ringer's (D5 Lr) 1,000 mls @ 120 mls/hr IV .Q8H20M [facility] Last Admin: 05/14/18 06:14 Dose: 1,000 mls Norepinephrine Bitartrate (Levophed) 250 mls @ 0 mls/hr IVPB INF PRN; Protocol PRN Reason: Blood Pressure Last Admin: 05/13/18 22:44 Dose: 250 mls Piperacillin Sod/Tazobactam (Sod 3.375 gm/ Sodium Chloride) 100 mls @ 200 mls/ hr IVPB 0500,1100,1700,2300 [facility] Last Admin: 05/14/18 10:37 Dose: 100 mls Fentanyl Citrate 2,000 mcg/ (Sodium Chloride) 100 mls @ 0 mls/hr IV INF PRN PRN Reason: Pain Potassium Chloride 40 meq/ (Device) 100 mls @ 25 mls/hr IVPB ONE [facility] Stop: 05/14/18 15:00 Last Admin: 05/14/18 10:45 Dose: 100 mls Dextrose/Water (D5w) 1,000 mls @ 0 mls/hr IV .Q0M PRN PRN Reason: Hypoglycemia Insulin Human Lispro (Humalog) 0 units SC .AGGRESSIVE SLIDING PRN PRN Reason: Aggressive Correctional Scale Insulin Human Lispro (Humalog) 0 units SC .BEDTIME SLIDING SC PRN PRN Reason: Bedtime Correctional Scale Ketorolac Tromethamine (Toradol) 15 mg IVP Q6HR [facility] Stop: 05/14/18 12:01 Last Admin: 05/14/18 06:13 Dose: 15 mg Naloxone HCl (Narcan) 0.2 mg IV Q5MIN PRN PRN Reason: RR <8 or pt obtun/unarousable Ondansetron HCl (Zofran) 4 mg IVP Q6H PRN PRN Reason: Nausea/Vomiting Pantoprazole Sodium (Protonix) 40 mg IVP DAILY [facility] Last Admin: 05/14/18 09:13 Dose: 40 mg Promethazine HCl (Phenergan) 12.5 mg IM Q4H PRN PRN Reason: Nausea/Vomiting Sodium Chloride (Flush - Normal Saline) 10 ml IVF Q12HR [facility] Last Admin: 05/14/18 09:13 Dose: 10 ml Sodium Chloride (Flush - Normal Saline) 10 ml IVF PRN PRN PRN Reason: Saline Flush Zolpidem Tartrate (Ambien) 5 mg PO HSPRN PRN PRN Reason: Insomnia
[2018-05-14] MEDS ORDERED: Insulin Regular 300 UNITS/3 ML VIAL SC PRN (12:18)
[2018-05-14] MEDS: fentaNYL Citrate/PF 2,000 MCG in Sodium Chloride 0.9% 60 ML IV PRN (16:50)
--- NOTE | 2018-05-14 19:30 | PRG ---
DATE OF SERVICE: 05/14/2018 SUBJECTIVE: Thomas Fu is doing well today. He did pull out his NG tube. It is now being replaced. OBJECTIVE: GENERAL: He is awake and alert and talkative. VITAL SIGNS: Blood pressure 125/64, pulse 94, respiratory rate 22. LUNGS: Clear to auscultation. CARDIAC: Regular rate and rhythm without murmur or gallop. ABDOMEN: Soft. Quiet. EXTREMITIES: Edematous. LABORATORY DATA: White count 8.3, hemoglobin 11.8. Basic metabolic profile, BUN 32, potassium 3.3, sodium 142. Chest x-ray, no change. NG tube output last 24 hours is 600 mL, although he has put out more today before he removed the NG tube. Urine output is not recorded. ASSESSMENT AND PLAN: Status post small bowel resection laparotomy and hernia repair. Continue medical treatment. He has been followed by Dr. Castillo and Cardiology. He has end-stage cardiomyopathy. He has refused AICD in the past. Continue ICU monitoring. Replace NG tube. The patient reports he did pass some flatus, which has encouraged him perhaps to remove the NG tube soon. Job ID: [id number]
[2018-05-15 04:31] LABS: Hemoglobin 10.7 g/dL (14.0-18.0); Mean Corpuscular HGB CONC 31.8 g/dL (32.0-36.0); Mean Corpuscular Hemoglobin 27.7 pg (27.0-31.0); Mean Corpuscular Volume 87.1 fL (78.0-98.0); Mean Platelet Volume 8.4 fL (7.4-10.4); Platelet Count 154 thou/uL (130-400); RBC Distribution Width 17.3 % (11.5-14.5); Red Blood Cell (RBC) Count 3.86 mill/uL (4.70-6.10); White Blood Cell (WBC) Count 5.3 thou/uL (4.8-10.8)
[2018-05-15 04:45] LABS: Anion Gap 11 mmol/L (10-20); BUN (Urea Nitrogen) 24 mg/dL (8.4-25.7); Calc. Creatinine Clearance 157 mL/min (70-130); Calcium 8.2 mg/dL (7.8-10.44); Carbon Dioxide 27 mmol/L (23-31); Chloride 111 mmol/L (98-107); Estimated GFR-MDRD 90; Glucose 183 mg/dL (80-115); Potassium 3.4 mmol/L (3.5-5.1); Sodium 146 mmol/L (136-145)
[2018-05-15 04:59] LABS: Band 7 % (5-11); Eosinophils 14 % (0-10); Lymphocytes 19 % (21-51); MDiff Complete? YES; Monocytes 10 % (0-10); Neutrophil 50 % (42-75)
[2018-05-15] MEDS: Piperacillin/Tazobactam 3.375 GM in Sodium Chloride 0.9% 100 ML IVPB SCH ×4 (05:19→22:32)
[2018-05-15] MEDS: Dextrose 5%-Lactated Ringers 1,000 ML IV SCH (05:19)
[2018-05-15] MEDS: Insulin Regular 300 UNITS/3 ML VIAL SC PRN (06:50)
[2018-05-15] MEDS: Pantoprazole 40 MG VIAL IVP SCH (09:03)
--- NOTE | 2018-05-15 09:26 | RAD ---
PORTABLE CHEST 1 VIEW: Date: 05/15/18 Time: 0530 hours HISTORY: Respiratory failure. FINDINGS/IMPRESSION: Comparison made with exam from previous day. Line and tube placements are unchanged in position. There are changes of median sternotomy. The heart is enlarged. There is worsening of pulmonary vascular congestion. No pneumothoraces or large effusio ns are seen. No lobar consolidation is identified. POS: [facility]
--- NOTE | 2018-05-15 09:56 | PRG ---
DATE OF SERVICE: 05/15/2018 SERVICE: Pulmonary Medicine. INTERVAL HISTORY: The patient is doing fine from a respiratory standpoint. He indicates he is breathing comfortably. His belly pain is under good control. He is passing gas. He is not having any nausea or vomiting at this point. Otherwise, there has been no interval change to his condition. PHYSICAL EXAMINATION: VITAL SIGNS: Afebrile. Pulse 90, blood pressure 120/91, respirations 22, and saturation 98% on 2 L nasal cannula. GENERAL: The patient is awake and alert, in no apparent distress. LUNGS: Decent air entry. Dependent crackles are noted. HEART: Normal rate and regular. ABDOMEN: Soft, nontender, and nondistended. Bowel sounds are positive. MUSCULOSKELETAL: No cyanosis or clubbing. There is no pitting in the bilateral lower extremities. NEUROLOGIC: Grossly nonfocal. LABORATORY DATA: Sodium 146 and potassium 3.4. Basic metabolic profile is otherwise unremarkable. CBC is also unremarkable. Band count is decreasing at 7% on top of 50% neutrophils. Blood cultures are growing alpha strep in 1/2. IMAGING DATA: Chest x-ray demonstrates enteric catheter coursing below the level of the diaphragm. This film is underpenetrated. Right IJ central venous catheter terminates in decent position. Possible pleural-parenchymal changes are noted, but they appear to be roughly symmetric. ASSESSMENT: 1. Acute hypoxic respiratory failure. 2. Chronic systolic heart failure. 3. Incarcerated hernia, status post right inguinal hernia repair, and laparotomy with segmental small bowel resection, postoperative day 4. DISCUSSION AND PLAN: The patient is currently stable for transition out of the ICU to the surgical unit. Pain medications will be weaned away through time. We will give the patient some potassium and free water. I will check magnesium with tomorrow morning's laboratories. Pulmonary Critical Care will continue to follow along for the time being, but will be careful with his fluid balance through time given his history of heart failure. Job ID: [id number]
[2018-05-15] MEDS: Sodium Chloride 0.45% 1,000 ML IV SCH ×2 (10:06→22:36)
--- NOTE | 2018-05-15 12:29 | PDOC.PN ---
- Subjective Encounter Start Date: 05/15/18 Encounter Start Time: 12:28 Subjective: no fever/chills -: no N/V.no BM yet -: abd pain controlled - Objective MAR Reviewed: Yes Vital Signs & Weight: Vital Signs (12 hours) Temp Pulse Resp Pulse Ox 05/15/18 11:59 98.6 F 05/15/18 10:59 98.3 F 05/15/18 07:46 100 05/15/18 07:40 92 23 H 05/15/18 07:00 97.3 F L 05/15/18 04:00 97.8 F Weight Admit Weight 270 lb Weight 269 lb 13.533 oz Most Recent Monitor Data Heart Rate from ECG 81 NIBP 129/72 NIBP BP-Mean 91 Respiration from ECG 19 SpO2 96 I&O: 05/14/18 05/15/18 05/16/18 06:59 06:59 06:59 Intake Total 3531 3452.1 220 Output Total 1989 1890 260 Balance 1541 1562.1 -40 Result Diagrams: 05/15/18 04:18 05/15/18 04:18 Additional Labs: Accuchecks 05/15/18 05/15/18 05/15/18 11:05 07:43 06:48 POC Glucose 119 H 150 H 164 H 05/14/18 05/14/18 20:57 17:00 POC Glucose 148 H 156 H Microbiology 05/11/18 13:14 Venous blood - Right Hand Blood Culture - Final Alpha-Strep, not S. pneumoniae Alpha-Strep, not S. pneumoniae#2 05/11/18 13:22 Venous blood - Right Arm Blood Culture - Preliminary NO GROWTH AT 48 HOURS Laboratory Tests 05/13/18 05/14/18 05/15/18 05:30 04:50 04:18 Sodium 140 142 146 H Phys Exam - Physical Examination Constitutional: NAD HEENT: PERRLA, moist MMs, sclera anicteric, oral pharynx no lesions Neck: no nodes, no JVD, supple, full ROM Respiratory: no wheezing, no rales, no rhonchi, clear to auscultation bilateral Cardiovascular: RRR, no significant murmur, no rub Gastrointestinal: soft, no distention BS difficult to hear Musculoskeletal: no edema, pulses present Neurological: non-focal, normal sensation, moves all 4 limbs Psychiatric: normal affect, A&O x 3 Skin: no rash Dx/Plan (1) Incarcerated right inguinal hernia Code(s): K40.30 - UNIL INGUINAL HERNIA, W OBST, W/O GANGR, NOT SPCF RECUR Status: Acute Comment: s/p inguinal hernia repair POD #2, pain control (2) SBO (small bowel obstruction) Code(s): K56.609 - UNSP INTESTNL OBST, UNSP TO PARTIAL VERSUS COMPLETE OBST Status: Acute Comment: s/p small bowel resection POD 2, local care, pain control, NGT decompression (3) NSVT (nonsustained ventricular tachycardia) Code(s): I47.2 - VENTRICULAR TACHYCARDIA Status: Acute Comment: Likley due to ongoing infection with underlying cardiomyopathy (4) Ischemic cardiomyopathy Code(s): I25.5 - ISCHEMIC CARDIOMYOPATHY Status: Chronic Comment: has refused AICD last admission earlier this month (5) Coronary artery disease Code(s): I25.10 - ATHSCL HEART DISEASE OF [place] CORONARY ARTERY W/O ANG PCTRS Status: Chronic (6) Diabetes mellitus type 2 in obese Code(s): E11.69 - TYPE 2 DIABETES MELLITUS WITH OTHER SPECIFIED COMPLICATION; E66.9 - OBESITY, UNSPECIFIED Status: Chronic (7) Dyslipidemia Code(s): E78.5 - HYPERLIPIDEMIA, UNSPECIFIED Status: Chronic (8) HTN (hypertension) Code(s): I10 - ESSENTIAL (PRIMARY) HYPERTENSION Status: Chronic Qualifiers: Hypertension type: essential hypertension Qualified Code(s): I10 - Essential (primary) hypertension Comment: Monitor vital signs, titrate antihypertensives as needed (9) Non compliance w medication regimen Code(s): Z91.14 - PATIENT'S OTHER NONCOMPLIANCE WITH MEDICATION REGIMEN Status : Chronic (10) Septic shock Code(s): A41.9 - SEPSIS, UNSPECIFIED ORGANISM; R65.21 - SEVERE SEPSIS WITH SEPTIC SHOCK Status: Resolved Comment: Secondary to #2, continue Zosyn, IVF' s, wean Levophed as clinically indicated - Plan continue antibiotics, PT/OT, respiratory therapy, incentive spirometry, out of bed/ambulate, DVT proph w/SCDs NGT in place w good pouput.clinically better but still poor BS -: cont supportive care -: restart cardiac meds when cleared by GS for PO intake -: refuses AICD.lasix prn -: am labs.IM team will follow..monitor rise in Sodium.add Free H2O * . Review of Systems - Review of Systems Constitutional: negative: fever, chills, sweats, weakness, malaise, other ENT: negative: Ear Pain, Ear Discharge, Nose Pain, Nose Discharge, Nose Congestion, Mouth Pain, Mouth Swelling, Throat Pain, Throat Swelling, Other Respiratory: negative: Cough, Dry, Shortness of Breath, Hemoptysis, SOB with Excertion, Pleuritic Pain, Sputum, Wheezing Cardiovascular: negative: chest pain, palpitations, orthopnea, paroxysmal nocturnal dyspnea, edema, light headedness, other Gastrointestinal: negative: Nausea, Vomiting, Abdominal Pain, Diarrhea, Constipation, Melena, Hematochezia, Other Genitourinary: negative: Dysuria, Frequency, Incontinence, Hematuria, Retention , Other Neurological: negative: Weakness, Numbness, Incoordination, Change in Speech, Confusion, Seizures, Other - Medications/Allergies Allergies/Adverse Reactions: Allergies Allergy/AdvReac Type Severity Reaction Status Date / Time No Known Drug Allergies Allergy Verified 05/08/18 01:34 Medications: Current Medications Albuterol/Ipratropium (Duoneb) 3 ml NEB [id number] JASON Last Admin: 05/15/18 07:40 Dose: 3 ml Dextrose/Water (Dextrose 50%) 25 gm SLOW IVP PRN PRN PRN Reason: Hypoglycemia Diphenhydramine HCl (Benadryl) 25 mg IM/IV Q3H PRN PRN Reason: Itching Last Admin: 05/13/18 02:08 Dose: 25 mg Diphenhydramine HCl (Benadryl) 25 mg PO Q3H PRN PRN Reason: Itching Furosemide (Lasix) 40 mg SLOW IVP 0600 [facility] Stop: 05/16/18 06:01 Glucagon (Glucagon) 1 mg IM PRN PRN PRN Reason: Hypoglycemia Piperacillin Sod/Tazobactam (Sod 3.375 gm/ Sodium Chloride) 100 mls @ 200 mls/ hr IVPB 0500,1100,1700,2300 JASON Last Admin: 05/15/18 10:07 Dose: 100 mls Fentanyl Citrate 2,000 mcg/ (Sodium Chloride) 100 mls @ 0 mls/hr IV INF PRN PRN Reason: Pain Last Admin: 05/14/18 16:50 Dose: 100 mls Dextrose/Water (D5w) 1,000 mls @ 0 mls/hr IV .Q0M PRN PRN Reason: Hypoglycemia Sodium Chloride (1/2 Normal Saline) 1,000 mls @ 70 mls/hr IV .[id number] [facility] Last Admin: 05/15/18 10:06 Dose: 1,000 mls Insulin Human Regular (Humulin R) 0 units SC .AGGRESSIVE SLIDING PRN; Protocol PRN Reason: AGGRESSIVE SLIDING SCALE Last Admin: 05/15/18 06:50 Dose: 3 unit Insulin Human Regular (Humulin R) 0 units SC .BEDTIME SLIDING SC PRN; Protocol PRN Reason: BEDTIME SLIDING SCALE Naloxone HCl (Narcan) 0.2 mg IV Q5MIN PRN PRN Reason: RR <8 or pt obtun/unarousable Ondansetron HCl (Zofran) 4 mg IVP Q6H PRN PRN Reason: Nausea/Vomiting Pantoprazole Sodium (Protonix) 40 mg IVP DAILY [facility] Last Admin: 05/15/18 09:03 Dose: 40 mg Promethazine HCl (Phenergan) 12.5 mg IM Q4H PRN PRN Reason: Nausea/Vomiting Sodium Chloride (Flush - Normal Saline) 10 ml IVF Q12HR [facility] Last Admin: 05/15/18 09:03 Dose: 10 ml Sodium Chloride (Flush - Normal Saline) 10 ml IVF PRN PRN PRN Reason: Saline Flush Zolpidem Tartrate (Ambien) 5 mg PO HSPRN PRN PRN Reason: Insomnia
--- NOTE | 2018-05-15 16:19 | PRG ---
DATE OF SERVICE: 05/15/2018 SUBJECTIVE: Mr. Fu is doing well. He has been off pressors since about midnight and his him assistant feels that he is ready to transfer to the floor. He still has an NG tube and that the output has become much clearer. It appears mostly to be the water that he has been taking in the form of ice chips. He denies any nausea and has only incisional abdominal pain. He has been passing flatus. Vitals are stable, off pressors and urine output has been okay. His incisions are clean and dry. He has jose luis in place in the abdominal incision. Bowel sounds are present. No evidence of recurrent hernia. ASSESSMENT AND PLAN: Status post bowel resection and repair of incarcerated strangulated inguinal hernia, doing well. Passing flatus and with no nausea, although NG tube is still in place. They are going to clamp this since the residual is low, then the skin be removed later today. Increase activities as tolerated. Once the NG tube is out, we will likely start him on clear liquids. Job ID: [id number]
[2018-05-15] MEDS: Atorvastatin Calcium 40 MG TAB PO SCH (19:41)
[2018-05-15] MEDS: Lisinopril 5 MG TAB PO SCH (19:42)
[2018-05-15] MEDS: Carvedilol 3.125 MG TAB PO SCH (19:42)
[2018-05-16] MEDS: Piperacillin/Tazobactam 3.375 GM in Sodium Chloride 0.9% 100 ML IVPB SCH ×4 (05:02→22:23)
[2018-05-16 05:59] LABS: Phosphorus 2.2 mg/dL (2.3-4.7)
[2018-05-16 06:00] LABS: Anion Gap 14 mmol/L (10-20); BUN (Urea Nitrogen) 20 mg/dL (8.4-25.7); Calc. Creatinine Clearance 179 mL/min (70-130); Calcium 8.3 mg/dL (7.8-10.44); Carbon Dioxide 22 mmol/L (23-31); Chloride 113 mmol/L (98-107); Estimated GFR-MDRD Greater than 90; Glucose 128 mg/dL (80-115); Magnesium 1.7 mg/dL (1.6-2.6); Potassium 3.6 mmol/L (3.5-5.1); Sodium 145 mmol/L (136-145)
[2018-05-16] MEDS ORDERED: Furosemide 40 MG/4 ML VIAL SLOW IVP SCH (06:00)
[2018-05-16] MEDS ORDERED: Potassium Phosphate 9 MMOL in Sodium Chloride 0.9% 100 ML IVPB SCH (08:15)
[2018-05-16] MEDS: Lisinopril 5 MG TAB PO SCH ×2 (08:29→22:07)
[2018-05-16] MEDS: Pantoprazole 40 MG VIAL IVP SCH (08:29)
[2018-05-16] MEDS: Furosemide 20 MG TAB PO SCH ×2 (08:29→15:42)
[2018-05-16] MEDS: Carvedilol 3.125 MG TAB PO SCH ×3 (08:29→22:07)
[2018-05-16] MEDS ORDERED: K-Phos Neutral 250 MG TAB PO SCH (08:30)
--- NOTE | 2018-05-16 11:34 | PDOC.PN ---
- Subjective Encounter Start Date: 05/16/18 Encounter Start Time: 11:33 Subjective: feels OK. -: had been having loose stools.pulled out central line & NGT -: sitter at eside for confusion - Objective MAR Reviewed: Yes Vital Signs & Weight: Vital Signs (12 hours) Temp Pulse Resp BP BP Pulse Ox 05/16/18 08:29 78 128/71 05/16/18 07:34 98.5 F 78 20 128/71 93 L 05/16/18 07:03 85 20 95 05/16/18 04:25 97.6 F 97 20 144/80 H 93 L 05/16/18 00:23 98.1 F 90 20 115/70 92 L 05/15/18 23:50 96 Weight Admit Weight 270 lb Weight 269 lb Most Recent Monitor Data Heart Rate from ECG 84 NIBP 147/85 NIBP BP-Mean 105 Respiration from ECG 26 SpO2 98 I&O: 05/15/18 05/16/18 05/17/18 06:59 06:59 06:59 Intake Total 3452.1 1512 Output Total 1890 930 Balance 1562.1 582 Result Diagrams: 05/15/18 04:18 05/16/18 05:10 Additional Labs: Accuchecks 05/16/18 05/16/18 05/15/18 11:01 05:32 20:40 POC Glucose 159 H 126 H 111 H 05/15/18 18:21 POC Glucose 119 H Microbiology 05/16/18 06:10 Stool C. difficile [facility] Antigen & Toxins - Final 05/16/18 06:10 Bowel - Loose Stool Lactoferrin - Final 05/11/18 13:14 Venous blood - Right Hand Blood Culture - Final Alpha-Strep, not S. pneumoniae Alpha-Strep, not S. pneumoniae#2 05/11/18 13:22 Venous blood - Right Arm Blood Culture - Preliminary NO GROWTH AT 48 HOURS Laboratory Tests 05/11/18 05/11/18 05/12/18 13:22 21:40 03:50 Band Neuts % (Manual) 19 H 59 H 45 H 05/13/18 05/14/18 05/15/18 05:30 04:50 04:18 Band Neuts % (Manual) 26 H 13 H 7 Phys Exam - Physical Examination Constitutional: NAD HEENT: PERRLA, moist MMs, sclera anicteric, oral pharynx no lesions Neck: no nodes, no JVD, supple, full ROM Respiratory: no wheezing, no rales, no rhonchi, clear to auscultation bilateral Cardiovascular: RRR, no significant murmur, no rub Gastrointestinal: soft, non-tender mild distended Musculoskeletal: no edema, pulses present Neurological: non-focal, normal sensation, moves all 4 limbs Psychiatric: normal affect Skin: no rash Dx/Plan (1) Incarcerated right inguinal hernia Code(s): K40.30 - UNIL INGUINAL HERNIA, W OBST, W/O GANGR, NOT SPCF RECUR Status: Acute Comment: s/p inguinal hernia repair POD #5, pain control (2) SBO (small bowel obstruction) Code(s): K56.609 - UNSP INTESTNL OBST, UNSP TO PARTIAL VERSUS COMPLETE OBST Status: Acute Comment: s/p small bowel resection POD 5, local care, pain control, NGT decompression (3) NSVT (nonsustained ventricular tachycardia) Code(s): I47.2 - VENTRICULAR TACHYCARDIA Status: Acute Comment: Likley due to ongoing infection with underlying cardiomyopathy (4) Ischemic cardiomyopathy Code(s): I25.5 - ISCHEMIC CARDIOMYOPATHY Status: Chronic Comment: has refused AICD last admission earlier this month (5) Coronary artery disease Code(s): I25.10 - ATHSCL HEART DISEASE OF [place] CORONARY ARTERY W/O ANG PCTRS Status: Chronic (6) Diabetes mellitus type 2 in obese Code(s): E11.69 - TYPE 2 DIABETES MELLITUS WITH OTHER SPECIFIED COMPLICATION; E66.9 - OBESITY, UNSPECIFIED Status: Chronic (7) Dyslipidemia Code(s): E78.5 - HYPERLIPIDEMIA, UNSPECIFIED Status: Chronic (8) HTN (hypertension) Code(s): I10 - ESSENTIAL (PRIMARY) HYPERTENSION Status: Chronic Qualifiers: Hypertension type: essential hypertension Qualified Code(s): I10 - Essential (primary) hypertension Comment: Monitor vital signs, titrate antihypertensives as needed (9) Non compliance w medication regimen Code(s): Z91.14 - PATIENT'S OTHER NONCOMPLIANCE WITH MEDICATION REGIMEN Status : Chronic (10) Septic shock Code(s): A41.9 - SEPSIS, UNSPECIFIED ORGANISM; R65.21 - SEVERE SEPSIS WITH SEPTIC SHOCK Status: Resolved Comment: Secondary to #2, continue Zosyn, IVF' s, wean Levophed as clinically indicated - Plan continue antibiotics, PT/OT, out of bed/ambulate, DVT proph w/SCDs CDiff Ag +ve.wait for PCR.florastor -: dietstartedas per primary team -: cardioprudent meds restarted.cont ASA,BB,IRAJ-I,statin -: Bands in CBCreducing. -: replace Phos.HD stable.IM team will follow * . Review of Systems - Review of Systems Constitutional: negative: fever, chills, sweats, weakness, malaise, other Cardiovascular: negative: chest pain, palpitations, orthopnea, paroxysmal nocturnal dyspnea, edema, light headedness, other Gastrointestinal: negative: Nausea, Vomiting, Abdominal Pain, Diarrhea, Constipation, Melena, Hematochezia, Other Neurological: negative: Weakness, Numbness, Incoordination, Change in Speech, Confusion, Seizures, Other - Medications/Allergies Allergies/Adverse Reactions: Allergies Allergy/AdvReac Type Severity Reaction Status Date / Time No Known Drug Allergies Allergy Verified 05/08/18 01:34 Medications: Current Medications Albuterol/Ipratropium (Duoneb) 3 ml NEB I2OB-NO [facility] Last Admin: 05/16/18 07:03 Dose: 3 ml Atorvastatin Calcium (Lipitor) 40 mg PO HS [facility] Last Admin: 05/15/18 19:41 Dose: 40 mg Carvedilol (Coreg) 3.125 mg PO TID [facility] Last Admin: 05/16/18 08:29 Dose: 3.125 mg Dextrose/Water (Dextrose 50%) 25 gm SLOW IVP PRN PRN PRN Reason: Hypoglycemia Diphenhydramine HCl (Benadryl) 25 mg IM/IV Q3H PRN PRN Reason: Itching Last Admin: 05/13/18 02:08 Dose: 25 mg Diphenhydramine HCl (Benadryl) 25 mg PO Q3H PRN PRN Reason: Itching Furosemide (Lasix) 40 mg PO 0900,1400 [facility] Last Admin: 05/16/18 08:29 Dose: 40 mg Glucagon (Glucagon) 1 mg IM PRN PRN PRN Reason: Hypoglycemia Piperacillin Sod/Tazobactam (Sod 3.375 gm/ Sodium Chloride) 100 mls @ 200 mls/ hr IVPB 0500,1100,1700,2300 [facility] Last Admin: 05/16/18 11:05 Dose: 100 mls Fentanyl Citrate 2,000 mcg/ (Sodium Chloride) 100 mls @ 0 mls/hr IV INF PRN PRN Reason: Pain Last Admin: 05/14/18 16:50 Dose: 100 mls Dextrose/Water (D5w) 1,000 mls @ 0 mls/hr IV .Q0M PRN PRN Reason: Hypoglycemia Sodium Chloride (1/2 Normal Saline) 1,000 mls @ 70 mls/hr IV .[id number] [facility] Last Admin: 05/15/18 22:36 Dose: 1,000 mls Potassium Phosphate 9 mmol/ (Sodium Chloride) 103 mls @ 25 mls/hr IVPB ONE [facility] Stop: 05/16/18 12:00 Last Admin: 05/16/18 08:56 Dose: 103 mls Insulin Human Regular (Humulin R) 0 units SC .AGGRESSIVE SLIDING PRN; Protocol PRN Reason: AGGRESSIVE SLIDING SCALE Last Admin: 05/15/18 06:50 Dose: 3 unit Insulin Human Regular (Humulin R) 0 units SC .BEDTIME SLIDING SC PRN; Protocol PRN Reason: BEDTIME SLIDING SCALE Lisinopril (Zestril) 5 mg PO BID [facility] Last Admin: 05/16/18 08:29 Dose: 5 mg Naloxone HCl (Narcan) 0.2 mg IV Q5MIN PRN PRN Reason: RR <8 or pt obtun/unarousable Ondansetron HCl (Zofran) 4 mg IVP Q6H PRN PRN Reason: Nausea/Vomiting Pantoprazole Sodium (Protonix) 40 mg IVP DAILY [facility] Last Admin: 05/16/18 08:29 Dose: 40 mg Promethazine HCl (Phenergan) 12.5 mg IM Q4H PRN PRN Reason: Nausea/Vomiting Sodium Chloride (Flush - Normal Saline) 10 ml IVF Q12HR [facility] Last Admin: 05/16/18 08:29 Dose: 10 ml Sodium Chloride (Flush - Normal Saline) 10 ml IVF PRN PRN PRN Reason: Saline Flush Zolpidem Tartrate (Ambien) 5 mg PO HSPRN PRN PRN Reason: Insomnia Last Admin: 05/15/18 19:42 Dose: 5 mg
[2018-05-16] MEDS: Insulin Regular 300 UNITS/3 ML VIAL SC PRN (11:40)
[2018-05-16] MEDS: Sodium Chloride 0.45% 1,000 ML IV SCH ×2 (11:57→22:23)
--- NOTE | 2018-05-16 13:15 | PRG ---
DATE OF SERVICE: 05/16/2018 SUBJECTIVE: Mr. Fu is feeling good today. He has had multiple bowel movements. His abdomen is soft, nontender, and nondistended. His incisions are clean, dry, and intact. He has normal bowel sounds. Urine output last shift was a little low at 300, but he is receiving Lasix this morning. He does have a few crackles in his lungs on exam. ASSESSMENT AND PLAN: Doing well status post repair of incarcerated strangulated hernia and small-bowel resection. He has had return of bowel function and we are advancing his diet. We will remove his Isaacs catheter today. Job ID: [id number]
[2018-05-16] MEDS: Ondansetron PF 4 MG/2 ML Vial IVP PRN (13:43)
--- NOTE | 2018-05-16 17:05 | PRG ---
DATE OF SERVICE: 05/16/2018 SUBJECTIVE: Tank is afebrile. OBJECTIVE: VITAL SIGNS: Heart rate is 84, respiratory rate is 20, oximetry is 93% on room air, and blood pressure 129/73, still encephalopathic. LUNGS: Clear. HEART: Regular rhythm. ABDOMEN: Soft. LABORATORY DATA: Sodium 145, potassium 3.6, chloride 113, bicarbonate 22, BUN 20, creatinine 0.74, glucose 128. IMPRESSIONS: 1. Status post resection of bowel after repair of incarcerated hernia. 2. Obesity. 3. Metabolic encephalopathy. 4. Status post perioperative mechanical ventilation. 5. Chronic systolic heart failure. 6. He has a sitter sitting with him. 7. He is medically stable, but likely will require placement in some type of skilled facility before he can go home. Job ID: [id number]
[2018-05-16] MEDS ORDERED: Digoxin 0.5 MG/2 ML AMP ONE (21:10)
[2018-05-16] MEDS: fentaNYL Citrate/PF 2,000 MCG in Sodium Chloride 0.9% 60 ML IV PRN (21:20)
[2018-05-16] MEDS: Atorvastatin Calcium 40 MG TAB PO SCH (22:07)
--- NOTE | 2018-05-16 23:16 | RAD ---
SINGLE VIEW ABDOMEN: HISTORY: NG tube placement. COMPARISON: 05/11/2018 FINDINGS: A single view of the upper abdomen shows air-filled loops of small bowel. An NG tube is seen overlyi ng the stomach. IMPRESSION: Nasogastric tube located in the stomach. POS: EMANUEL
[2018-05-17] MEDS: Piperacillin/Tazobactam 3.375 GM in Sodium Chloride 0.9% 100 ML IVPB SCH (05:10)
[2018-05-17 06:49] LABS: Anion Gap 15 mmol/L (10-20); BUN (Urea Nitrogen) 19 mg/dL (8.4-25.7); Calc. Creatinine Clearance 150 mL/min (70-130); Calcium 8.5 mg/dL (7.8-10.44); Carbon Dioxide 26 mmol/L (23-31); Chloride 109 mmol/L (98-107); Estimated GFR-MDRD Greater than 90; Glucose 122 mg/dL (80-115); Magnesium 1.4 mg/dL (1.6-2.6); Potassium 3.5 mmol/L (3.5-5.1); Sodium 146 mmol/L (136-145)
[2018-05-17 07:10] LABS: Phosphorus 4.3 mg/dL (2.3-4.7)
[2018-05-17] MEDS: Carvedilol 3.125 MG TAB PO SCH ×3 (08:46→21:10)
[2018-05-17] MEDS: Furosemide 20 MG TAB PO SCH ×2 (08:46→15:27)
[2018-05-17] MEDS: Lisinopril 5 MG TAB PO SCH ×2 (08:46→21:10)
[2018-05-17] MEDS: Pantoprazole 40 MG VIAL IVP SCH (08:46)
[2018-05-17] MEDS: Ondansetron PF 4 MG/2 ML Vial IVP PRN (08:46)
[2018-05-17] MEDS: Aspirin 81 mg Enteric Coated Tablet PO SCH (08:47)
[2018-05-17] MEDS ORDERED: Magnesium 2 GM/50 ML 2 GM in Premix Bag 1 BAG IVPB SCH (09:00)
[2018-05-17] MEDS ORDERED: Dextrose 5 %-0.45 % NaCl 1,000 ML IV SCH (09:00)
[2018-05-17 12:02] LABS: Analyzer IN Cardio OR; Base Excess (BEa) -4.3 mEq/L (-2.0 to +3.0); CO2 Tension 44.9 mmHg (35.0-45.0); Calcium, Ionized 0.97 mmol/L (1.12-1.30); Carboxyhemoglobin (COHb) 1.6 gm% (0.0-3.0); O2 Tension (PaO2) 291.5 mmHg (> 80.0); Potassium - ABG Lab 5.32 mmol/L (3.70-5.30); pH, Arterial 7.31 (7.35-7.45)
[2018-05-17 12:02] LABS: Actual Bicarbonate (HCO3a) 24.4 mEq/L (22-28); Analyzer IN Cardio OR; Base Excess (BEa) -0.9 mEq/L (-2.0 to +3.0); CO2 Tension 42.7 mmHg (35.0-45.0); Calcium, Ionized 1.11 mmol/L (1.12-1.30); Carboxyhemoglobin (COHb) 1.3 gm% (0.0-3.0); Hemoglobin (Hb) 12.8 g/dL (14.0-18.0); Potassium - ABG Lab 4.05 mmol/L (3.70-5.30); pH, Arterial 7.37 (7.35-7.45)
[2018-05-17 12:03] LABS: Actual Bicarbonate (HCO3a) 21.3 mEq/L (22-28); Analyzer IN Cardio OR; CO2 Tension 40.1 mmHg (35.0-45.0); Calcium, Ionized 1.01 mmol/L (1.12-1.30); Carboxyhemoglobin (COHb) 2.3 gm% (0.0-3.0); Hemoglobin (Hb) 13.2 g/dL (14.0-18.0); O2 Tension (PaO2) 298.2 mmHg (> 80.0); Potassium - ABG Lab 3.83 mmol/L (3.70-5.30); pH, Arterial 7.34 (7.35-7.45)
[2018-05-17 12:30] LABS: Puncture Site ALINE
[2018-05-17 12:30] LABS: Puncture Site ALINE
[2018-05-17 12:31] LABS: Puncture Site ALINE
[2018-05-17] MEDS: metroNIDAZOLE 500 MG in Premix Bag 1 BAG IVPB SCH ×2 (12:52→17:19)
[2018-05-17] MEDS: Vancomycin HCl 25 MG/ML Oral PO SCH ×3 (12:52→23:27)
--- NOTE | 2018-05-17 12:57 | PDOC.PN ---
- Subjective Encounter Start Date: 05/17/18 Encounter Start Time: 12:55 Subjective: NGT replaced due to vomiting.he denies nay abd pain or nausea this morning -: Cdiff PCR positive-on contact precautions. - Objective MAR Reviewed: Yes Vital Signs & Weight: Vital Signs (12 hours) Temp Pulse Resp BP BP Pulse Ox 05/17/18 11:36 97.7 F 69 20 136/85 94 L 05/17/18 08:46 75 156/92 H 05/17/18 08:11 97.5 F L 75 22 H 152/92 H 92 L 05/17/18 07:26 80 16 96 05/17/18 04:28 98.3 F 78 18 121/75 95 Weight Admit Weight 270 lb Weight 246 lb 9.6 oz Most Recent Monitor Data Heart Rate from ECG 84 NIBP 147/85 NIBP BP-Mean 105 Respiration from ECG 26 SpO2 98 I&O: 05/16/18 05/17/18 05/18/18 06:59 06:59 06:59 Intake Total 1512 2670 Output Total 930 5850 Balance 582 -3180 Result Diagrams: 05/15/18 04:18 05/17/18 05:45 Additional Labs: Accuchecks 05/17/18 05/17/18 05/16/18 10:29 05:48 19:56 POC Glucose 100 100 126 H 05/16/18 15:30 POC Glucose 140 H Microbiology 05/16/18 06:10 Stool C. difficile GDH Antigen & Toxins - Final 05/16/18 06:10 Stool Clostridium difficile Toxin A&B PCR - Final 05/16/18 06:10 Bowel - Loose Stool Lactoferrin - Final 05/11/18 13:22 Venous blood - Right Arm Blood Culture - Final NO GROWTH IN 5 DAYS 05/11/18 13:14 Venous blood - Right Hand Blood Culture - Final Alpha-Strep, not S. pneumoniae Alpha-Strep, not S. pneumoniae#2 Laboratory Tests 05/11/18 05/11/18 05/12/18 13:22 21:40 03:50 Sodium 130 L 134 L 135 L 05/13/18 05/14/18 05/15/18 05:30 04:50 04:18 Sodium 140 142 146 H 05/16/18 05/17/18 05:10 05:45 Sodium 145 146 H Phys Exam - Physical Examination Constitutional: NAD NGT in place HEENT: PERRLA, moist MMs, sclera anicteric, oral pharynx no lesions Respiratory: no wheezing, no rales, no rhonchi, clear to auscultation bilateral Cardiovascular: RRR, no significant murmur Gastrointestinal: soft, non-tender, no distention, positive bowel sounds no rebound/guarding/rigidity Musculoskeletal: no edema, pulses present Psychiatric: normal affect, A&O x 3 Skin: no rash Dx/Plan (1) C. difficile colitis Status: Acute Comment: started on PO vancomycin (2) Incarcerated right inguinal hernia Code(s): K40.30 - UNIL INGUINAL HERNIA, W OBST, W/O GANGR, NOT SPCF RECUR Status: Acute Comment: s/p inguinal hernia repair POD #5, pain control (3) SBO (small bowel obstruction) Code(s): K56.609 - UNSP INTESTNL OBST, UNSP TO PARTIAL VERSUS COMPLETE OBST Status: Acute Comment: s/p small bowel resection POD 5, local care, pain control, NGT decompression (4) NSVT (nonsustained ventricular tachycardia) Code(s): I47.2 - VENTRICULAR TACHYCARDIA Status: Acute Comment: Likley due to ongoing infection with underlying cardiomyopathy (5) Ischemic cardiomyopathy Code(s): I25.5 - ISCHEMIC CARDIOMYOPATHY Status: Chronic Comment: has refused AICD last admission earlier this month (6) Coronary artery disease Code(s): I25.10 - ATHSCL HEART DISEASE OF [place] CORONARY ARTERY W/O ANG PCTRS Status: Chronic (7) Diabetes mellitus type 2 in obese Code(s): E11.69 - TYPE 2 DIABETES MELLITUS WITH OTHER SPECIFIED COMPLICATION; E66.9 - OBESITY, UNSPECIFIED Status: Chronic (8) Dyslipidemia Code(s): E78.5 - HYPERLIPIDEMIA, UNSPECIFIED Status: Chronic (9) HTN (hypertension) Code(s): I10 - ESSENTIAL (PRIMARY) HYPERTENSION Status: Chronic Qualifiers: Hypertension type: essential hypertension Qualified Code(s): I10 - Essential (primary) hypertension Comment: Monitor vital signs, titrate antihypertensives as needed (10) Non compliance w medication regimen Code(s): Z91.14 - PATIENT'S OTHER NONCOMPLIANCE WITH MEDICATION REGIMEN Status : Chronic (11) Septic shock Code(s): A41.9 - SEPSIS, UNSPECIFIED ORGANISM; R65.21 - SEVERE SEPSIS WITH SEPTIC SHOCK Status: Resolved Comment: Secondary to #2, continue Zosyn, IVF' s, wean Levophed as clinically indicated - Plan continue antibiotics, PT/OT, out of bed/ambulate, DVT proph w/SCDs replace Magnesium.recheck -: PO vanco for C diff.NGT repaced.NPO -: HD stable. -: cont cardio prudent meds.on statin,ASA,BB,IRAJ-I d/t severe CMP -: poor prognosis. refuses AICD.am labs * . Review of Systems - Review of Systems Constitutional: weakness, malaise. negative: fever, chills, sweats, other Respiratory: negative: Cough, Dry, Shortness of Breath, Hemoptysis, SOB with Excertion, Pleuritic Pain, Sputum, Wheezing Cardiovascular: negative: chest pain, palpitations, orthopnea, paroxysmal nocturnal dyspnea, edema, light headedness, other Gastrointestinal: negative: Nausea, Vomiting, Abdominal Pain, Diarrhea, Constipation, Melena, Hematochezia, Other - Medications/Allergies Allergies/Adverse Reactions: Allergies Allergy/AdvReac Type Severity Reaction Status Date / Time No Known Drug Allergies Allergy Verified 05/08/18 01:34 Medications: Current Medications Albuterol/Ipratropium (Duoneb) 3 ml NEB [id number] [facility] Last Admin: 05/17/18 07:26 Dose: 3 ml Aspirin (Ecotrin) 81 mg PO DAILY [facility] Last Admin: 05/17/18 08:47 Dose: 81 mg Atorvastatin Calcium (Lipitor) 40 mg PO HS [facility] Last Admin: 05/16/18 22:07 Dose: Not Given Carvedilol (Coreg) 3.125 mg PO TID [facility] Last Admin: 05/17/18 08:46 Dose: 3.125 mg Dextrose/Water (Dextrose 50%) 25 gm SLOW IVP PRN PRN PRN Reason: Hypoglycemia Diphenhydramine HCl (Benadryl) 25 mg IM/IV Q3H PRN PRN Reason: Itching Last Admin: 05/13/18 02:08 Dose: 25 mg Diphenhydramine HCl (Benadryl) 25 mg PO Q3H PRN PRN Reason: Itching Furosemide (Lasix) 40 mg PO 0900,1400 [facility] Last Admin: 05/17/18 08:46 Dose: 40 mg Glucagon (Glucagon) 1 mg IM PRN PRN PRN Reason: Hypoglycemia Fentanyl Citrate 2,000 mcg/ (Sodium Chloride) 100 mls @ 0 mls/hr IV INF PRN PRN Reason: Pain Last Admin: 05/16/18 21:20 Dose: 100 mls Dextrose/Water (D5w) 1,000 mls @ 0 mls/hr IV .Q0M PRN PRN Reason: Hypoglycemia Dextrose/Sodium Chloride (D5 1/2 Ns) 1,000 mls @ 50 mls/hr IV .Q20H [facility] Last Admin: 05/17/18 10:02 Dose: 1,000 mls Metronidazole 500 mg/ Device 100 mls @ 100 mls/hr IVPB Q6HR [facility] Last Admin: 05/17/18 12:52 Dose: 100 mls Insulin Human Regular (Humulin R) 0 units SC .AGGRESSIVE SLIDING PRN; Protocol PRN Reason: AGGRESSIVE SLIDING SCALE Last Admin: 05/16/18 11:40 Dose: 3 unit Insulin Human Regular (Humulin R) 0 units SC .BEDTIME SLIDING SC PRN; Protocol PRN Reason: BEDTIME SLIDING SCALE Lisinopril (Zestril) 5 mg PO BID [facility] Last Admin: 05/17/18 08:46 Dose: 5 mg Naloxone HCl (Narcan) 0.2 mg IV Q5MIN PRN PRN Reason: RR <8 or pt obtun/unarousable Ondansetron HCl (Zofran) 4 mg IVP Q6H PRN PRN Reason: Nausea/Vomiting Last Admin: 05/17/18 08:46 Dose: 4 mg Pantoprazole Sodium (Protonix) 40 mg IVP DAILY [facility] Last Admin: 05/17/18 08:46 Dose: 40 mg Promethazine HCl (Phenergan) 12.5 mg IM Q4H PRN PRN Reason: Nausea/Vomiting Last Admin: 05/16/18 16:12 Dose: 12.5 mg Sodium Chloride (Flush - Normal Saline) 10 ml IVF Q12HR [facility] Last Admin: 05/17/18 08:46 Dose: 10 ml Sodium Chloride (Flush - Normal Saline) 10 ml IVF PRN PRN PRN Reason: Saline Flush Vancomycin HCl (First Vancomycin) 500 mg PO Q6HR [facility] Last Admin: 05/17/18 12:52 Dose: 500 mg Zolpidem Tartrate (Ambien) 5 mg PO HSPRN PRN PRN Reason: Insomnia Last Admin: 05/15/18 19:42 Dose: 5 mg
[2018-05-17] MEDS ORDERED: Potassium Chloride 40 MEQ in Sodium Chloride 0.9% 500 ML IVPB SCH (18:00)
[2018-05-17] MEDS: Dextrose 5 %-0.45 % NaCl 1,000 ML IV SCH (18:27)
--- NOTE | 2018-05-17 18:30 | PRG ---
DATE OF SERVICE: 05/17/2018 SERVICE: Pulmonary Medicine. INTERVAL HISTORY: The patient is doing fine from respiratory standpoint. He is breathing comfortably. He is on 1 L nasal cannula. His saturations remain excellent. He denies having any abdominal discomfort. He tried eating yesterday. He had over 2 L of fluid in his belly. He had a vomiting episode. Ultimately, an NG tube was once again placed. He had profuse watery diarrhea, it started two days ago. It was sent for Clostridium difficile, which was positive. PHYSICAL EXAMINATION: VITAL SIGNS: Afebrile, pulse 70, blood pressure 101/67, respirations 22, and saturations 95% on room air. GENERAL: The patient is awake and alert, in no apparent distress. LUNGS: Decent air entry. No prolonged expiratory phase or wheezing is present. HEART: Normal rate regular. ABDOMEN: Soft, nontender, and nondistended. Bowel sounds are positive. MUSCULOSKELETAL: No cyanosis or clubbing. No pitting in the bilateral lower extremities. NEUROLOGIC: Grossly nonfocal. LABORATORY DATA: Sodium 146. Basic metabolic profile is otherwise unremarkable. Magnesium 1.4. Phosphorus 4.3. Clostridium difficile antigen and toxin are positive. IMAGING: KUB demonstrates an NG tube located in the stomach. ASSESSMENT: 1. Acute hypoxic respiratory failure, improving. 2. Chronic systolic heart failure. 3. Incarcerated hernia, status post small bowel resection, postop day #6. 4. Clostridium difficile colitis. DISCUSSION AND PLAN: I will replace magnesium and the potassium today. Pulmonary Critical Care will continue to follow along while the patient remains inhouse. We will repeat laboratories tomorrow morning. I will see him on Mondays, Wednesdays, and Fridays. If he has increasing issues, please give me a phone call. Job ID: [id number]
[2018-05-17] MEDS: Atorvastatin Calcium 40 MG TAB PO SCH (21:10)
[2018-05-18] MEDS: metroNIDAZOLE 500 MG in Premix Bag 1 BAG IVPB SCH ×5 (00:37→23:41)
[2018-05-18] MEDS ORDERED: Potassium Chloride 40 MEQ in Sodium Chloride 0.9% 500 ML IVPB SCH (01:00)
[2018-05-18] MEDS: Dextrose 5 %-0.45 % NaCl 1,000 ML IV SCH ×3 (05:44→19:55)
[2018-05-18] MEDS: Vancomycin HCl 25 MG/ML Oral PO SCH ×4 (06:05→23:42)
[2018-05-18 07:26] LABS: #Eosinphils 0.3 thou/uL (0.0-0.7); #Lymphocytes 1.2 thou/uL (1.20-3.40); #Neutrophils 4.1 thou/uL (1.40-6.50); %Basophils 0.4 % (0.0-1.0); %Eosinophils 4.4 % (0.0-10.0); %Lymphocytes 18.7 % (21.0-51.0); %Monocytes 14.5 % (0.0-10.0); %Neutrophils 61.9 % (42.0-75.0); Hemoglobin 11.6 g/dL (14.0-18.0); Mean Corpuscular HGB CONC 31.7 g/dL (32.0-36.0); Mean Corpuscular Hemoglobin 27.3 pg (27.0-31.0); Mean Corpuscular Volume 86.3 fL (78.0-98.0); Mean Platelet Volume 8.5 fL (7.4-10.4); Platelet Count 266 thou/uL (130-400); RBC Distribution Width 17.8 % (11.5-14.5); Red Blood Cell (RBC) Count 4.23 mill/uL (4.70-6.10); White Blood Cell (WBC) Count 6.6 thou/uL (4.8-10.8)
[2018-05-18 07:55] LABS: Anion Gap 15 mmol/L (10-20); BUN (Urea Nitrogen) 16 mg/dL (8.4-25.7); Calc. Creatinine Clearance 169 mL/min (70-130); Calcium 8.6 mg/dL (7.8-10.44); Carbon Dioxide 23 mmol/L (23-31); Chloride 111 mmol/L (98-107); Estimated GFR-MDRD Greater than 90; Glucose 106 mg/dL (80-115); Magnesium 1.6 mg/dL (1.6-2.6); Potassium 3.9 mmol/L (3.5-5.1); Sodium 145 mmol/L (136-145)
[2018-05-18] MEDS: Pantoprazole 40 MG VIAL IVP SCH (09:09)
[2018-05-18] MEDS: Carvedilol 3.125 MG TAB PO SCH ×3 (09:09→19:56)
[2018-05-18] MEDS: Furosemide 20 MG TAB PO SCH ×2 (09:09→13:35)
[2018-05-18] MEDS: Aspirin 81 mg Enteric Coated Tablet PO SCH (09:10)
[2018-05-18] MEDS: Lisinopril 5 MG TAB PO SCH ×2 (09:10→19:56)
--- NOTE | 2018-05-18 11:46 | PDOC.GSPN ---
Surgery Progress Note: Subj - Subjective Narrative: Patient states that he is feeling good today. He denies any nausea. He has passed gas and had a soft bowel movement which is little more formed than before. He denies any difficulty voiding. His abdomen is soft nontender nondistended and his incisions look good. NG output is very pale green and the NG was clamped. C. difficile toxin and antigen yesterday were positive and I started him on oral vancomycin and IV Flagyl. Assessment/plan: Patient is status post resection of gangrenous small bowel and repair of incarcerated strangulated inguinal hernia. He had some nausea and vomiting with advancement of diet but denies any nausea now and his NG output appears to be mostly the ice chips he is drinking. We will clamp the NG and check residuals. If this is low we will DC the NG tube and likely start him on clears tomorrow. His Clostridium difficile appears to be responding to treatment. Surgery Progress Note: Obj - Vital signs Vital signs: Vital Signs - Most Recent Temp Pulse Resp BP Pulse Ox 97.7 F 82 16 133/80 94 L 05/18/18 07:15 05/18/18 09:10 05/18/18 07:43 05/18/18 07:15 05/18/18 07:46 Surgery Progress Note: Results - Labs Result Diagrams: 05/18/18 06:46 05/18/18 06:46 Lab results: Laboratory Results - last 24 hr 05/18/18 05/18/18 05/18/18 06:15 06:46 06:46 WBC 6.6 RBC 4.23 L Hgb 11.6 L Hct 36.5 L MCV 86.3 MCH 27.3 MCHC 31.7 L RDW 17.8 H Plt Count 266 MPV 8.5 Neutrophils % 61.9 Lymphocytes % 18.7 L Monocytes % 14.5 H Eosinophils % 4.4 Basophils % 0.4 Neutrophils # 4.1 Lymphocytes # 1.2 Monocytes # 1.0 H Eosinophils # 0.3 Basophils # 0.0 Sodium 145 Potassium 3.9 Chloride 111 H Carbon Dioxide 23 Anion Gap 15 BUN 16 Creatinine 0.77 Estimated GFR (MDRD) Greater than 90 Glucose 106 POC Glucose 115 H Calcium 8.6 Magnesium 1.6 05/18/18 10:59 WBC RBC Hgb Hct MCV MCH MCHC RDW Plt Count MPV Neutrophils % Lymphocytes % Monocytes % Eosinophils % Basophils % Neutrophils # Lymphocytes # Monocytes # Eosinophils # Basophils # Sodium Potassium Chloride Carbon Dioxide Anion Gap BUN Creatinine Estimated GFR (MDRD) Glucose POC Glucose 120 H Calcium Magnesium
--- NOTE | 2018-05-18 16:12 | PDOC.PN ---
- Subjective Encounter Start Date: 05/18/18 Encounter Start Time: 12:05 Mr. Fu was seen today in follow-up of medical management following inguinal hernia repair. He is sitting up in bed eating ice chips. He does not have any complaints. He denies abdominal pain. He denies nausea or vomiting. - Objective MAR Reviewed: Yes Vital Signs & Weight: Vital Signs (12 hours) Temp Pulse Resp BP Pulse Ox 05/18/18 15:00 98.4 F 80 16 154/79 H 94 L 05/18/18 12:23 71 16 89 L 05/18/18 11:00 97.4 F L 74 20 127/78 98 05/18/18 09:10 82 05/18/18 07:46 94 L 05/18/18 07:43 82 16 94 L 05/18/18 07:15 97.7 F 72 20 133/80 95 05/18/18 04:31 97.7 F 77 20 138/79 96 Weight Admit Weight 270 lb Weight 264 lb 11.2 oz Most Recent Monitor Data Heart Rate from ECG 84 NIBP 147/85 NIBP BP-Mean 105 Respiration from ECG 26 SpO2 98 I&O: 05/17/18 05/18/18 05/19/18 06:59 06:59 06:59 Intake Total 2670 2600 Output Total 5850 3200 Balance -3180 -600 Result Diagrams: 05/18/18 06:46 05/18/18 06:46 Additional Labs: Accuchecks 05/18/18 05/18/18 05/18/18 15:22 10:59 06:15 POC Glucose 109 120 H 115 H 05/17/18 20:39 POC Glucose 125 H Phys Exam - Physical Examination HEENT: PERRLA Respiratory: no wheezing, no rales, no rhonchi + coarse breath sounds Cardiovascular: RRR, no significant murmur, no rub Gastrointestinal: soft, non-tender, no distention mildly distended, hypoactive bowel sounds Musculoskeletal: pulses present, edema present Neurological: non-focal Dx/Plan (1) Diabetes mellitus type 2 in obese Code(s): E11.69 - TYPE 2 DIABETES MELLITUS WITH OTHER SPECIFIED COMPLICATION; E66.9 - OBESITY, UNSPECIFIED Status: Chronic (2) HTN (hypertension) Code(s): I10 - ESSENTIAL (PRIMARY) HYPERTENSION Status: Chronic Qualifiers: Hypertension type: essential hypertension Qualified Code(s): I10 - Essential (primary) hypertension Comment: Monitor vital signs, titrate antihypertensives as needed (3) C. difficile colitis Status: Acute Comment: started on PO vancomycin (4) Incarcerated right inguinal hernia Code(s): K40.30 - UNIL INGUINAL HERNIA, W OBST, W/O GANGR, NOT SPCF RECUR Status: Acute Comment: s/p inguinal hernia repair POD #5, pain control - Plan * DM- blood glucose is controlled * HTN- blood pressure is stable * C Diff Colitis- he has improved symptoms ( less diarrhea ) on Oral Vancomycin and Flagyl IV * Patient is still NPO except medication, but plan is to clamp the NG tube, possible advancement of diet tomorrow as per Surgery. * Ambulate as tolerated
[2018-05-18] MEDS: Atorvastatin Calcium 40 MG TAB PO SCH (19:56)
[2018-05-19] MEDS: Vancomycin HCl 25 MG/ML Oral PO SCH ×4 (05:58→23:58)
[2018-05-19] MEDS: metroNIDAZOLE 500 MG in Premix Bag 1 BAG IVPB SCH ×4 (05:59→23:58)
[2018-05-19] MEDS: Dextrose 5 %-0.45 % NaCl 1,000 ML IV SCH ×2 (06:04→16:04)
[2018-05-19 07:02] LABS: Anion Gap 11 mmol/L (10-20); BUN (Urea Nitrogen) 11 mg/dL (8.4-25.7); Calc. Creatinine Clearance 163 mL/min (70-130); Carbon Dioxide 27 mmol/L (23-31); Chloride 105 mmol/L (98-107); Estimated GFR-MDRD Greater than 90; Glucose 139 mg/dL (80-115); Magnesium 1.3 mg/dL (1.6-2.6); Potassium 3.4 mmol/L (3.5-5.1); Sodium 140 mmol/L (136-145)
[2018-05-19] MEDS: Aspirin 81 mg Enteric Coated Tablet PO SCH (08:08)
[2018-05-19] MEDS: Furosemide 20 MG TAB PO SCH ×2 (08:08→13:09)
[2018-05-19] MEDS: Pantoprazole 40 MG VIAL IVP SCH (08:08)
[2018-05-19] MEDS: Lisinopril 5 MG TAB PO SCH ×2 (08:08→21:17)
[2018-05-19] MEDS: Carvedilol 3.125 MG TAB PO SCH ×3 (08:09→21:17)
[2018-05-19] MEDS ORDERED: Magnesium 2 GM/50 ML 2 GM in Premix Bag 1 BAG IVPB SCH ×2 (09:00→16:00)
[2018-05-19] MEDS: Potassium Chloride 10 MEQ in Premix Bag 1 BAG IVPB SCH ×2 (10:35→14:34)
[2018-05-19] MEDS ORDERED: HYDROcodone/Acetaminophen 10/325 mg Tablet PO PRN ×2 (10:58→10:59)
[2018-05-19] MEDS ORDERED: Fentanyl 100 MCG/2 ML VIAL SLOW IVP PRN (10:59)
--- NOTE | 2018-05-19 15:41 | PRG ---
DATE OF SERVICE: 05/19/2018 SERVICE: Pulmonary Medicine. INTERVAL HISTORY: The patient is doing great from respiratory standpoint. Breathing comfortably. There has been no interval change to his condition. He indicates he does not have any abdominal discomfort. He is having significant number of bowel movements. That being said, this started to firm up a touch. He does not have any nausea or vomiting. His NG tube was clamped and he has not had any issues with that. PHYSICAL EXAMINATION: VITAL SIGNS: Afebrile. Pulse 67, blood pressure 150/77, respirations 18, saturation 93% on room air. GENERAL: The patient is awake and alert, in no apparent distress. LUNGS: Excellent air entry. I do not appreciate any crackles, wheezing, or rhonchi. HEART: Normal rate and regular. ABDOMEN: Soft, nontender, and nondistended. Bowel sounds are positive. MUSCULOSKELETAL: No cyanosis or clubbing. No pitting in the bilateral lower extremities. NEUROLOGIC: Grossly nonfocal. LABORATORY DATA: Potassium 3.4, magnesium 1.3. Basic metabolic profile is otherwise unremarkable. Blood culture is growing two separate alpha strep species. The other blood cultures sterile. C. diff antigen and toxin are positive. ASSESSMENT: 1. Acute hypoxic respiratory failure, resolved. 2. Chronic systolic heart failure. 3. Incarcerated hernia, status post small bowel resection, postop day 8. 4. Clostridium difficile colitis. DISCUSSION AND PLAN: We will once again replace the magnesium and the potassium. We will repeat these levels tomorrow morning. Pulmonary Critical Care will follow him intermittently during the hospital stay. If he gets into trouble over the weekend, please give me a phone call. Job ID: [id number]
--- NOTE | 2018-05-19 15:53 | PDOC.PN ---
- Subjective Encounter Start Date: 05/19/18 Encounter Start Time: 15:51 Mr. Fu was seen today in follow-up of medical management following surgery for an incarcerated inguinal hernia and C. Diff Colitis. He says he is still having at least 4 loose stools a day. He denies any abdominal pain or nausea - Objective MAR Reviewed: Yes Vital Signs & Weight: Vital Signs (12 hours) Temp Pulse Resp BP Pulse Ox 05/19/18 11:45 97.6 F 67 18 150/77 H 93 L 05/19/18 09:01 93 L 05/19/18 08:54 63 20 93 L 05/19/18 08:08 77 05/19/18 07:32 97.5 F L 77 20 150/77 H 94 L Weight Admit Weight 270 lb Weight 264 lb 11.2 oz Most Recent Monitor Data Heart Rate from ECG 84 NIBP 147/85 NIBP BP-Mean 105 Respiration from ECG 26 SpO2 98 I&O: 05/18/18 05/19/18 05/20/18 06:59 06:59 06:59 Intake Total 2600 2680 Output Total 3200 1775 Balance -600 905 Result Diagrams: 05/18/18 06:46 05/19/18 06:31 Additional Labs: Accuchecks 05/19/18 05/19/18 05/18/18 11:42 05:10 20:13 POC Glucose 121 H 132 H 110 Phys Exam - Physical Examination HEENT: PERRLA Respiratory: no wheezing, no rales, no rhonchi, clear to auscultation bilateral Cardiovascular: RRR, no significant murmur, no rub Gastrointestinal: soft, non-tender, no distention, positive bowel sounds Musculoskeletal: pulses present, edema present + chronic venous stasis changes, leathery skin Neurological: non-focal, moves all 4 limbs Dx/Plan (1) Diabetes mellitus type 2 in obese Code(s): E11.69 - TYPE 2 DIABETES MELLITUS WITH OTHER SPECIFIED COMPLICATION; E66.9 - OBESITY, UNSPECIFIED Status: Chronic (2) HTN (hypertension) Code(s): I10 - ESSENTIAL (PRIMARY) HYPERTENSION Status: Chronic Qualifiers: Hypertension type: essential hypertension Qualified Code(s): I10 - Essential (primary) hypertension Comment: Monitor vital signs, titrate antihypertensives as needed (3) C. difficile colitis Status: Acute Comment: started on PO vancomycin (4) Incarcerated right inguinal hernia Code(s): K40.30 - UNIL INGUINAL HERNIA, W OBST, W/O GANGR, NOT SPCF RECUR Status: Acute Comment: s/p inguinal hernia repair POD #5, pain control - Plan * DM- blood glucose is stable * HTN- blood pressure is controlled * Replace Potassium and Magnesium * C. Diff Colitis- continue oral Vancomycin and Flagyl * Ambulate as tolerated.
[2018-05-19] MEDS: Atorvastatin Calcium 40 MG TAB PO SCH (21:17)
--- NOTE | 2018-05-19 22:55 | PDOC.GSPN ---
Surgery Progress Note: Subj - Subjective Narrative: Patient is feeling good. He denies any nausea or abdominal pain. His stools are a little more formed. His incisions are clean and intact and his NG output is low and clear in color. Assessment/plan: Status post repair of incarcerated strangulated inguinal hernia with laparotomy for small bowel resection doing well. NG will be clamped and if residuals are low and he does not have any nausea this will be removed and clear liquid diet restarted. If he tolerates this he can be advanced to full liquids tomorrow. He is on oral vancomycin and IV Flagyl for his C. difficile colitis which appears to be responding to treatment. Surgery Progress Note: Obj - Vital signs Vital signs: Vital Signs - Most Recent Temp Pulse Resp BP Pulse Ox 97.7 F 76 24 H 154/74 H 94 L 05/19/18 21:00 05/19/18 21:17 05/19/18 21:00 05/19/18 21:17 05/19/18 21:00 Surgery Progress Note: Results - Labs Result Diagrams: 05/18/18 06:46 05/19/18 06:31 Lab results: Laboratory Results - last 24 hr 05/19/18 05/19/18 11:42 15:58 POC Glucose 121 H 105
[2018-05-20] MEDS: Vancomycin HCl 25 MG/ML Oral PO SCH ×3 (06:28→16:49)
[2018-05-20] MEDS: metroNIDAZOLE 500 MG in Premix Bag 1 BAG IVPB SCH ×3 (06:28→16:48)
[2018-05-20 06:59] LABS: Anion Gap 13 mmol/L (10-20); BUN (Urea Nitrogen) 7 mg/dL (8.4-25.7); Calc. Creatinine Clearance 167 mL/min (70-130); Calcium 8.1 mg/dL (7.8-10.44); Carbon Dioxide 27 mmol/L (23-31); Chloride 103 mmol/L (98-107); Estimated GFR-MDRD Greater than 90; Glucose 132 mg/dL (80-115); Magnesium 1.6 mg/dL (1.6-2.6); Potassium 3.4 mmol/L (3.5-5.1); Sodium 140 mmol/L (136-145)
[2018-05-20] MEDS: Aspirin 81 mg Enteric Coated Tablet PO SCH (08:28)
[2018-05-20] MEDS: Lisinopril 5 MG TAB PO SCH ×2 (08:28→21:59)
[2018-05-20] MEDS: Carvedilol 3.125 MG TAB PO SCH ×3 (08:28→22:00)
[2018-05-20] MEDS: Pantoprazole 40 MG VIAL IVP SCH (08:28)
[2018-05-20] MEDS: Furosemide 40 MG TAB PO SCH (08:28)
[2018-05-20] MEDS: Potassium Chloride 20 MEQ in Premix Bag 1 BAG IVPB SCH ×2 (10:07→11:38)
[2018-05-20] MEDS: Dextrose 5 %-0.45 % NaCl 1,000 ML IV SCH ×2 (11:39→22:01)
--- NOTE | 2018-05-20 12:18 | PDOC.PN ---
- Subjective Encounter Start Date: 05/20/18 Encounter Start Time: 12:16 Subjective: feels much better. NGT is out & has no abd pain or nausea.+flatus - Objective MAR Reviewed: Yes Vital Signs & Weight: Vital Signs (12 hours) Temp Pulse Resp BP Pulse Ox 05/20/18 12:15 97.7 F 70 18 133/75 98 05/20/18 08:28 73 05/20/18 08:04 97.5 F L 73 20 158/82 H 93 L 05/20/18 06:53 96 05/20/18 06:49 63 20 96 05/20/18 04:23 98.3 F 66 19 160/80 H 93 L 05/20/18 00:20 97.8 F 78 24 H 144/78 H 94 L Weight Admit Weight 270 lb Weight 265 lb Most Recent Monitor Data Heart Rate from ECG 84 NIBP 147/85 NIBP BP-Mean 105 Respiration from ECG 26 SpO2 98 I&O: 05/19/18 05/20/18 05/21/18 06:59 06:59 06:59 Intake Total 2680 1880 Output Total 1775 1480 Balance 905 400 Result Diagrams: 05/18/18 06:46 05/20/18 05:50 Additional Labs: Accuchecks 05/19/18 05/19/18 20:23 15:58 POC Glucose 106 105 Phys Exam - Physical Examination Constitutional: NAD HEENT: PERRLA, moist MMs, sclera anicteric, oral pharynx no lesions Neck: no nodes, no JVD, supple, full ROM Respiratory: no wheezing, no rhonchi few basilar crackles Cardiovascular: RRR, no significant murmur Gastrointestinal: soft, non-tender, no distention, positive bowel sounds incison site well healing Musculoskeletal: no edema, pulses present Neurological: non-focal, normal sensation, moves all 4 limbs Psychiatric: normal affect, A&O x 3 Skin: no rash Dx/Plan (1) C. difficile colitis Status: Acute Comment: started on PO vancomycin+ IV flagyl (2) Incarcerated right inguinal hernia Code(s): K40.30 - UNIL INGUINAL HERNIA, W OBST, W/O GANGR, NOT SPCF RECUR Status: Acute Comment: s/p inguinal hernia repair POD #9, pain control (3) SBO (small bowel obstruction) Code(s): K56.609 - UNSP INTESTNL OBST, UNSP TO PARTIAL VERSUS COMPLETE OBST Status: Acute Comment: s/p small bowel resection POD # 9, local care, pain control, NGT decompression (4) NSVT (nonsustained ventricular tachycardia) Code(s): I47.2 - VENTRICULAR TACHYCARDIA Status: Acute Comment: Likley due to ongoing infection with underlying cardiomyopathy (5) Ischemic cardiomyopathy Code(s): I25.5 - ISCHEMIC CARDIOMYOPATHY Status: Chronic Comment: has refused AICD last admission earlier this month.on ASA,BB,ACE_I,lasix,statin (6) Coronary artery disease Code(s): I25.10 - ATHSCL HEART DISEASE OF [place] CORONARY ARTERY W/O ANG PCTRS Status: Chronic (7) Diabetes mellitus type 2 in obese Code(s): E11.69 - TYPE 2 DIABETES MELLITUS WITH OTHER SPECIFIED COMPLICATION; E66.9 - OBESITY, UNSPECIFIED Status: Chronic (8) Dyslipidemia Code(s): E78.5 - HYPERLIPIDEMIA, UNSPECIFIED Status: Chronic (9) HTN (hypertension) Code(s): I10 - ESSENTIAL (PRIMARY) HYPERTENSION Status: Chronic Qualifiers: Hypertension type: essential hypertension Qualified Code(s): I10 - Essential (primary) hypertension Comment: Monitor vital signs, titrate antihypertensives as needed (10) Non compliance w medication regimen Code(s): Z91.14 - PATIENT'S OTHER NONCOMPLIANCE WITH MEDICATION REGIMEN Status : Chronic (11) Septic shock Code(s): A41.9 - SEPSIS, UNSPECIFIED ORGANISM; R65.21 - SEVERE SEPSIS WITH SEPTIC SHOCK Status: Resolved Comment: Secondary to #2, continue Zosyn, IVF' s, wean Levophed as clinically indicated - Plan clinically better. NGt is out and +ve BS.diet per primary team -: blood sugar and BP controlled. cont meds as below -: Hd stable. cont cardiac meds. -: cont lasix as EF poor and pt on IVF d/t NPO status -: amlabs. monitor lytes & replace prn.IM team will follow * . Review of Systems - Review of Systems Constitutional: weakness. negative: fever, chills, sweats, malaise, other ENT: negative: Ear Pain, Ear Discharge, Nose Pain, Nose Discharge, Nose Congestion, Mouth Pain, Mouth Swelling, Throat Pain, Throat Swelling, Other Respiratory: negative: Cough, Dry, Shortness of Breath, Hemoptysis, SOB with Excertion, Pleuritic Pain, Sputum, Wheezing Cardiovascular: negative: chest pain, palpitations, orthopnea, paroxysmal nocturnal dyspnea, edema, light headedness, other Gastrointestinal: negative: Nausea, Vomiting, Abdominal Pain, Diarrhea, Constipation, Melena, Hematochezia, Other Genitourinary: negative: Dysuria, Frequency, Incontinence, Hematuria, Retention , Other Neurological: negative: Weakness, Numbness, Incoordination, Change in Speech, Confusion, Seizures, Other - Medications/Allergies Allergies/Adverse Reactions: Allergies Allergy/AdvReac Type Severity Reaction Status Date / Time No Known Drug Allergies Allergy Verified 05/08/18 01:34 Medications: Current Medications Hydrocodone Bitart/Acetaminophen (Morrison 10/325) 1 tab PO Q4H PRN PRN Reason: Pain 1-4 Hydrocodone Bitart/Acetaminophen (Morrison 10/325) 2 tab PO Q4H PRN PRN Reason: Pain 5-10 Albuterol/Ipratropium (Duoneb) 3 ml NEB [id number] Last Admin: 05/20/18 06:49 Dose: 3 ml Aspirin (Ecotrin) 81 mg PO DAILY [facility] Last Admin: 05/20/18 08:28 Dose: 81 mg Atorvastatin Calcium (Lipitor) 40 mg PO HS [facility] Last Admin: 05/19/18 21:17 Dose: 40 mg Carvedilol (Coreg) 3.125 mg PO TID [facility] Last Admin: 05/20/18 08:28 Dose: 3.125 mg Dextrose/Water (Dextrose 50%) 25 gm SLOW IVP PRN PRN PRN Reason: Hypoglycemia Diphenhydramine HCl (Benadryl) 25 mg IM/IV Q3H PRN PRN Reason: Itching Last Admin: 05/13/18 02:08 Dose: 25 mg Diphenhydramine HCl (Benadryl) 25 mg PO Q3H PRN PRN Reason: Itching Fentanyl (Sublimaze) 50 mcg SLOW IVP Q1H PRN PRN Reason: BREAKTHROUGH PAIN Furosemide (Lasix) 40 mg PO 0900 [facility] Last Admin: 05/20/18 08:28 Dose: 40 mg Glucagon (Glucagon) 1 mg IM PRN PRN PRN Reason: Hypoglycemia Dextrose/Water (D5w) 1,000 mls @ 0 mls/hr IV .Q0M PRN PRN Reason: Hypoglycemia Metronidazole 500 mg/ Device 100 mls @ 100 mls/hr IVPB Q6HR [facility] Last Admin: 05/20/18 06:28 Dose: 100 mls Dextrose/Sodium Chloride (D5 1/2 Ns) 1,000 mls @ 50 mls/hr IV .Q20H [facility] Last Admin: 05/20/18 11:39 Dose: Not Given Potassium Chloride 20 meq/ (Device) 100 mls @ 50 mls/hr IVPB 0845,1045 [facility] Stop: 05/20/18 12:44 Last Admin: 05/20/18 11:38 Dose: 100 mls Insulin Human Regular (Humulin R) 0 units SC .AGGRESSIVE SLIDING PRN; Protocol PRN Reason: AGGRESSIVE SLIDING SCALE Last Admin: 05/16/18 11:40 Dose: 3 unit Insulin Human Regular (Humulin R) 0 units SC .BEDTIME SLIDING SC PRN; Protocol PRN Reason: BEDTIME SLIDING SCALE Lisinopril (Zestril) 5 mg PO BID [facility] Last Admin: 05/20/18 08:28 Dose: 5 mg Naloxone HCl (Narcan) 0.2 mg IV Q5MIN PRN PRN Reason: RR <8 or pt obtun/unarousable Ondansetron HCl (Zofran) 4 mg IVP Q6H PRN PRN Reason: Nausea/Vomiting Last Admin: 05/17/18 08:46 Dose: 4 mg Pantoprazole Sodium (Protonix) 40 mg IVP DAILY [facility] Last Admin: 05/20/18 08:28 Dose: 40 mg Promethazine HCl (Phenergan) 12.5 mg IM Q4H PRN PRN Reason: Nausea/Vomiting Last Admin: 05/16/18 16:12 Dose: 12.5 mg Sodium Chloride (Flush - Normal Saline) 10 ml IVF Q12HR [facility] Last Admin: 05/20/18 08:30 Dose: 10 ml Sodium Chloride (Flush - Normal Saline) 10 ml IVF PRN PRN PRN Reason: Saline Flush Vancomycin HCl (First Vancomycin) 500 mg PO Q6HR [facility] Last Admin: 05/20/18 06:28 Dose: 500 mg Zolpidem Tartrate (Ambien) 5 mg PO HSPRN PRN PRN Reason: Insomnia Last Admin: 05/15/18 19:42 Dose: 5 mg
[2018-05-20] MEDS: Atorvastatin Calcium 40 MG TAB PO SCH (22:00)
[2018-05-21] MEDS: Vancomycin HCl 25 MG/ML Oral PO SCH ×4 (00:55→18:15)
[2018-05-21] MEDS: metroNIDAZOLE 500 MG in Premix Bag 1 BAG IVPB SCH ×3 (00:55→13:20)
[2018-05-21 06:30] LABS: Anion Gap 12 mmol/L (10-20); BUN (Urea Nitrogen) 6 mg/dL (8.4-25.7); Calc. Creatinine Clearance 197 mL/min (70-130); Calcium 7.8 mg/dL (7.8-10.44); Carbon Dioxide 24 mmol/L (23-31); Chloride 106 mmol/L (98-107); Estimated GFR-MDRD Greater than 90; Glucose 127 mg/dL (80-115); Magnesium 1.4 mg/dL (1.6-2.6); Potassium 3.4 mmol/L (3.5-5.1); Sodium 139 mmol/L (136-145)
[2018-05-21] MEDS: Furosemide 40 MG TAB PO SCH (08:28)
[2018-05-21] MEDS: Pantoprazole 40 MG VIAL IVP SCH (08:28)
[2018-05-21] MEDS: Carvedilol 3.125 MG TAB PO SCH ×3 (08:29→20:03)
[2018-05-21] MEDS: Aspirin 81 mg Enteric Coated Tablet PO SCH (08:29)
[2018-05-21] MEDS: Lisinopril 5 MG TAB PO SCH ×2 (08:29→20:02)
--- NOTE | 2018-05-21 12:16 | PDOC.PN ---
- Subjective Encounter Start Date: 05/21/18 Encounter Start Time: 12:10 Subjective: f/u for c. diff colitis on Flagyl and Vancomycin. Stool consistency -: more firm. No fever or chills. Tolerating full liquid diet. Ambulating -: with PT in halls. - Objective MAR Reviewed: Yes Vital Signs & Weight: Vital Signs (12 hours) Temp Pulse Resp BP BP Pulse Ox 05/21/18 08:29 77 142/83 H 05/21/18 08:13 97.6 F 77 18 142/83 H 100 05/21/18 08:06 91 L 05/21/18 08:04 81 20 91 L 05/21/18 08:00 100 05/21/18 04:36 97.8 F 74 20 131/71 94 L 05/21/18 01:28 96 05/21/18 00:21 97.8 F 69 20 133/72 92 L Weight Admit Weight 270 lb Weight 264 lb Most Recent Monitor Data Heart Rate from ECG 84 NIBP 147/85 NIBP BP-Mean 105 Respiration from ECG 26 SpO2 98 I&O: 05/20/18 05/21/18 05/22/18 06:59 06:59 06:59 Intake Total 1880 1440 Output Total 1480 960 Balance 400 480 Result Diagrams: 05/18/18 06:46 05/21/18 05:50 Additional Labs: Accuchecks 05/20/18 05/20/18 05/20/18 20:33 16:11 12:14 POC Glucose 148 H 106 116 H 05/20/18 05:46 POC Glucose 123 H Phys Exam - Physical Examination Constitutional: NAD HEENT: PERRLA, sclera anicteric, oral pharynx no lesions Neck: no nodes, no JVD, supple, full ROM Respiratory: no wheezing, no rales, no rhonchi, clear to auscultation bilateral S1, S2 Cardiovascular: RRR, no significant murmur, no rub, gallop midline incision intact Gastrointestinal: soft, non-tender, no distention, positive bowel sounds Musculoskeletal: no edema, pulses present Neurological: normal sensation, moves all 4 limbs Psychiatric: A&O x 3 Skin: normal turgor, cap refill <2 seconds Dx/Plan (1) Incarcerated right inguinal hernia Code(s): K40.30 - UNIL INGUINAL HERNIA, W OBST, W/O GANGR, NOT SPCF RECUR Status: Acute Comment: s/p inguinal hernia repair POD #10, pain control, OOB, stable (2) SBO (small bowel obstruction) Code(s): K56.609 - UNSP INTESTNL OBST, UNSP TO PARTIAL VERSUS COMPLETE OBST Status: Acute Comment: s/p small bowel resection POD # 10, local care, pain control, NGT removed (3) GABRIELLA (acute kidney injury) Code(s): N17.9 - ACUTE KIDNEY FAILURE, UNSPECIFIED Status: Acute Comment: Resolved (4) Diabetes mellitus Code(s): E11.9 - TYPE 2 DIABETES MELLITUS WITHOUT COMPLICATIONS Status: Chronic Comment: ISS, ADA - Plan continue antibiotics, 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
[2018-05-21] MEDS: Insulin Regular 300 UNITS/3 ML VIAL SC PRN (13:14)
--- NOTE | 2018-05-21 14:19 | PRG ---
DATE OF SERVICE: 05/21/2018 SUBJECTIVE: Mr. Fu is postoperative day #10 from repair of a strangulated right inguinal hernia without mesh and a laparotomy with segmental small bowel resection. He has no complaints today. He has been tolerating his diet. States that he has a good appetite with no nausea or vomiting. He is currently on a full liquid diet. He has apparently had at least 3 diarrheal bowel movements today. He tells me he has ambulated in the [place] and urinating well. He is on oral vancomycin and was on intravenous Flagyl but was switched to oral Flagyl just today in treatment of Clostridium difficile, which was diagnosed on 05/16. OBJECTIVE: VITAL SIGNS: He is afebrile, pulse is 77, blood pressure 142/88. LUNGS: Clear to auscultation. ABDOMEN: Soft, nontender, and nondistended with normoactive bowel sounds. He has some mild serous drainage from the tract from his Telfa jose luis. His right inguinal incision is healing nicely and nontender. LABORATORY DATA: His last CBC was on the . He had a basic metabolic panel today that shows no significant electrolyte abnormalities. ASSESSMENT: He is doing very well except for his Clostridium difficile diarrhea. He tells me this is improving. Today, he is being switched to oral Flagyl. I will advance him up to a regular diet. Hopefully, he will be ready for discharge in the next day or two. Job ID: [id number]
[2018-05-21] MEDS: metroNIDAZOLE 500 MG TAB PO SCH ×2 (15:53→20:02)
[2018-05-21] MEDS: Dextrose 5 %-0.45 % NaCl 1,000 ML IV SCH (16:57)
[2018-05-21] MEDS ORDERED: Magnesium 2 GM/50 ML 2 GM in Premix Bag 1 BAG IVPB SCH (19:15)
--- NOTE | 2018-05-21 19:27 | PRG ---
DATE OF SERVICE: 05/21/2018 SERVICE: Pulmonary Medicine. INTERVAL HISTORY: The patient is doing great from respiratory standpoint. He is weaned down to room air. He is tolerating p.o. He is having bowel movements, but they seem to be lighting up a little bit. Otherwise, there has been no interval change to his condition. PHYSICAL EXAMINATION: VITAL SIGNS: Afebrile, pulse 75, blood pressure 163/89, respirations 20, and saturation 94% on room air. GENERAL: The patient is awake and alert, in no apparent distress. LUNGS: Decent air entry. There is no prolonged expiratory phase, wheezing, rhonchi, or crackles present. HEART: Normal rate and regular. ABDOMEN: Soft, nontender, and nondistended. Bowel sounds are positive. MUSCULOSKELETAL: No cyanosis or clubbing. There is 1+ pitting in the bilateral lower extremities. LABORATORY DATA: Potassium 3.4, magnesium 1.4. Basic metabolic profile is otherwise unremarkable. ASSESSMENT: 1. Acute hypoxic respiratory failure, resolved. 2. Chronic systolic heart failure. 3. Incarcerated hernia, status post small-bowel resection, postop day #10. 4. Clostridium difficile colitis. DISCUSSION AND PLAN: I will replace potassium and magnesium today. Pulmonary/Critical Care will continue to follow along, intermittently during the hospital stay. If he gets into trouble over the week, please give us a phone call sooner. Job ID: [id number]
[2018-05-21] MEDS: Potassium Chloride 20 MEQ TAB PO SCH (20:02)
[2018-05-21] MEDS: Atorvastatin Calcium 40 MG TAB PO SCH (20:03)
[2018-05-22] MEDS: Vancomycin HCl 25 MG/ML Oral PO SCH ×5 (00:10→23:45)
[2018-05-22] MEDS: Potassium Chloride 20 MEQ TAB PO SCH (00:10)
[2018-05-22 06:03] LABS: #Eosinphils 0.3 thou/uL (0.0-0.7); #Lymphocytes 1.4 thou/uL (1.20-3.40); #Monocytes 0.8 thou/uL (0.11-0.59); %Basophils 0.5 % (0.0-1.0); %Eosinophils 2.6 % (0.0-10.0); %Lymphocytes 14.9 % (21.0-51.0); %Monocytes 8.1 % (0.0-10.0); %Neutrophils 73.9 % (42.0-75.0); Hemoglobin 12.1 g/dL (14.0-18.0); Mean Corpuscular HGB CONC 31.7 g/dL (32.0-36.0); Mean Corpuscular Hemoglobin 27.4 pg (27.0-31.0); Mean Corpuscular Volume 86.5 fL (78.0-98.0); Mean Platelet Volume 8.2 fL (7.4-10.4); Platelet Count 368 thou/uL (130-400); RBC Distribution Width 18.6 % (11.5-14.5); White Blood Cell (WBC) Count 9.5 thou/uL (4.8-10.8)
[2018-05-22] MEDS: Furosemide 40 MG TAB PO SCH (08:15)
[2018-05-22] MEDS: Aspirin 81 mg Enteric Coated Tablet PO SCH (08:15)
[2018-05-22] MEDS: Lisinopril 5 MG TAB PO SCH ×2 (08:15→21:14)
[2018-05-22] MEDS: Carvedilol 3.125 MG TAB PO SCH ×3 (08:15→21:14)
[2018-05-22] MEDS: metroNIDAZOLE 500 MG TAB PO SCH ×4 (08:16→21:15)
--- NOTE | 2018-05-22 08:19 | PRG ---
DATE OF SERVICE: 05/22/2018 SUBJECTIVE: Mr. Fu is resting comfortably in his bed on the surgical floor. He is postoperative day #11 from repair of a strangulated right inguinal hernia and a laparotomy with segmental small bowel resection. He had developed an ileus at some point after surgery, but this seems to have resolved and he has more recently had problems with Clostridium difficile diarrhea. He tells me he had several diarrhea bowel movements during the night. He is eating, but tells me he does not have a good appetite. He denies any nausea or vomiting. OBJECTIVE: VITAL SIGNS: On examination, he is afebrile. Pulse is 90 and blood pressure is 138/85. LUNGS: Clear to auscultation. ABDOMEN: Soft. Incision is healing appropriately with minimal drainage. Bowel sounds are present and normoactive. LABORATORY DATA: Showed that his glucose level has been stable less than 140. His CBC is essentially normal with a white blood cell count of 9.5 and a hemoglobin of 12.1. The differential is unremarkable. ASSESSMENT: The patient is stable after his surgery, but is still showing the effects of Clostridium difficile diarrhea. He is on oral vancomycin and metronidazole. Hopefully, these will help control his diarrhea. He still requires admission until his bowel function is under better control. Job ID: [id number]
--- NOTE | 2018-05-22 10:37 | PDOC.PN ---
- Subjective Encounter Start Date: 05/22/18 Encounter Start Time: 10:30 Subjective: f/u for c. diff colitis on Flagyl/Vancomycin orally. Still with several -: loose stools this am. Tolerating po intake. No fever. - Objective MAR Reviewed: Yes Vital Signs & Weight: Vital Signs (12 hours) Temp Pulse Resp BP BP Pulse Ox 05/22/18 08:24 97.5 F L 79 20 120/74 95 05/22/18 08:15 79 120/74 05/22/18 07:25 96 05/22/18 07:23 90 14 05/22/18 05:25 97.7 F 87 20 138/85 96 05/22/18 00:57 93 L 05/22/18 00:16 97.2 F L 86 18 144/83 H 94 L Weight Admit Weight 270 lb Weight 259 lb 3.2 oz Most Recent Monitor Data Heart Rate from ECG 84 NIBP 147/85 NIBP BP-Mean 105 Respiration from ECG 26 SpO2 98 I&O: 05/21/18 05/22/18 05/23/18 06:59 06:59 06:59 Intake Total 1440 1750 Output Total 960 1400 Balance 480 350 Result Diagrams: 05/22/18 05:46 05/21/18 05:50 Additional Labs: Accuchecks 05/22/18 05/21/18 05/21/18 05:32 20:13 16:16 POC Glucose 143 H 127 H 114 H 05/21/18 05/21/18 12:17 05:38 POC Glucose 179 H 113 H Microbiology 05/11/18 13:22 Venous blood - Right Arm Blood Culture - Preliminary Specimen has been received and culture in progress. No Growth to date. 05/11/18 13:14 Venous blood - Right Hand Blood Culture - Preliminary Streptococcus species Laboratory Tests 05/11/18 05/11/18 05/11/18 13:22 13:22 17:02 Band Neuts % (Manual) 19 H Sodium Potassium BUN Creatinine Lactic Acid 2.6 H 2.5 H 05/11/18 05/11/18 05/12/18 21:40 21:40 03:50 Band Neuts % (Manual) 59 H 45 H Sodium 134 L Potassium 3.9 BUN 40 H Creatinine 1.39 H Lactic Acid Phys Exam - Physical Examination Constitutional: NAD HEENT: PERRLA, sclera anicteric, oral pharynx no lesions Neck: no nodes, no JVD, supple, full ROM Respiratory: no wheezing, no rales, no rhonchi, clear to auscultation bilateral S1, S2 Cardiovascular: RRR, no significant murmur, no rub, gallop mild TTP in the lower quadrants Gastrointestinal: soft, no distention, positive bowel sounds Musculoskeletal: no edema, pulses present Neurological: normal sensation, moves all 4 limbs Psychiatric: A&O x 3 Skin: normal turgor, cap refill <2 seconds Dx/Plan (1) C. difficile colitis Status: Acute Comment: Continue Vancomycin 500mg po q6h, change Flagyl 500mg po q6h, add Florastor 250mg BID (2) Incarcerated right inguinal hernia Code(s): K40.30 - UNIL INGUINAL HERNIA, W OBST, W/O GANGR, NOT SPCF RECUR Status: Acute Comment: s/p inguinal hernia repair POD #11, pain control, OOB, stable (3) SBO (small bowel obstruction) Code(s): K56.609 - UNSP INTESTNL OBST, UNSP TO PARTIAL VERSUS COMPLETE OBST Status: Acute Comment: s/p small bowel resection POD # 11, local care, pain control, NGT removed (4) GABRIELLA (acute kidney injury) Code(s): N17.9 - ACUTE KIDNEY FAILURE, UNSPECIFIED Status: Acute Comment: Resolved (5) Diabetes mellitus Code(s): E11.9 - TYPE 2 DIABETES MELLITUS WITHOUT COMPLICATIONS Status: Chronic Comment: ISS, ADA - Plan continue antibiotics, PT/OT, social work associate, out of bed/ambulate, DVT proph w/ SCDs Stable overall -: Change Flagyl 500mg QID -: Add Florastor 250mg BID -: OOB/ambulate with PT -: AM lab: BMP, CBC * ? SNF transfer in 24h
[2018-05-22] MEDS ORDERED: Saccharomyces boulardii 250 MG CAP PO SCH ×2 (10:45→11:00)
[2018-05-22] MEDS: Insulin Regular 300 UNITS/3 ML VIAL SC PRN (11:39)
[2018-05-22] MEDS: Dextrose 5 %-0.45 % NaCl 1,000 ML IV SCH (14:45)
[2018-05-22] MEDS: Atorvastatin Calcium 40 MG TAB PO SCH (21:14)
[2018-05-22] MEDS: Saccharomyces boulardii 250 MG CAP PO SCH (21:14)
[2018-05-23] MEDS: Vancomycin HCl 25 MG/ML Oral PO SCH ×3 (05:44→17:23)
[2018-05-23 06:14] LABS: #Basophils 0.1 thou/uL (0.0-0.2); #Eosinphils 0.3 thou/uL (0.0-0.7); #Lymphocytes 1.5 thou/uL (1.20-3.40); #Monocytes 0.8 thou/uL (0.11-0.59); #Neutrophils 6.1 thou/uL (1.40-6.50); %Basophils 0.6 % (0.0-1.0); %Eosinophils 3.4 % (0.0-10.0); %Lymphocytes 17.4 % (21.0-51.0); %Neutrophils 69.7 % (42.0-75.0); Hemoglobin 11.2 g/dL (14.0-18.0); Mean Corpuscular HGB CONC 31.9 g/dL (32.0-36.0); Mean Corpuscular Hemoglobin 27.5 pg (27.0-31.0); Mean Corpuscular Volume 86.2 fL (78.0-98.0); Mean Platelet Volume 8.6 fL (7.4-10.4); Platelet Count 361 thou/uL (130-400); RBC Distribution Width 18.5 % (11.5-14.5); Red Blood Cell (RBC) Count 4.08 mill/uL (4.70-6.10); White Blood Cell (WBC) Count 8.8 thou/uL (4.8-10.8)
[2018-05-23 06:38] LABS: Anion Gap 14 mmol/L (10-20); BUN (Urea Nitrogen) 7 mg/dL (8.4-25.7); Calc. Creatinine Clearance 160 mL/min (70-130); Calcium 8.1 mg/dL (7.8-10.44); Carbon Dioxide 21 mmol/L (23-31); Chloride 104 mmol/L (98-107); Estimated GFR-MDRD Greater than 90; Glucose 177 mg/dL (80-115); Potassium 4.6 mmol/L (3.5-5.1); Sodium 134 mmol/L (136-145)
[2018-05-23] MEDS: Aspirin 81 mg Enteric Coated Tablet PO SCH (08:41)
[2018-05-23] MEDS: Carvedilol 3.125 MG TAB PO SCH ×3 (08:41→21:11)
[2018-05-23] MEDS: Saccharomyces boulardii 250 MG CAP PO SCH ×2 (08:41→21:12)
[2018-05-23] MEDS: metroNIDAZOLE 500 MG TAB PO SCH ×4 (08:41→21:12)
[2018-05-23] MEDS: Lisinopril 5 MG TAB PO SCH ×2 (08:42→21:12)
[2018-05-23] MEDS: Furosemide 40 MG TAB PO SCH (08:42)
--- NOTE | 2018-05-23 11:24 | PDOC.PN ---
- Subjective Encounter Start Date: 05/23/18 Encounter Start Time: 11:15 Subjective: f/u for c. diff colitis on oral Vancomycin/Flagyl. Less stool frequency -: today. Feels ok. Appetite improved. - Objective MAR Reviewed: Yes Vital Signs & Weight: Vital Signs (12 hours) Temp Pulse Resp BP BP Pulse Ox 05/23/18 08:42 83 123/74 05/23/18 08:38 93 L 05/23/18 08:33 83 28 H 93 L 05/23/18 07:38 92 L 05/23/18 07:20 98 F 78 24 H 123/74 94 L 05/23/18 04:32 98.1 F 84 20 116/70 92 L 05/23/18 00:38 93 L 05/23/18 00:20 98.1 F 78 16 121/74 94 L Weight Admit Weight 270 lb 11.642 oz Weight 260 lb 2 oz Most Recent Monitor Data Heart Rate from ECG 84 NIBP 147/85 NIBP BP-Mean 105 Respiration from ECG 26 SpO2 98 I&O: 05/22/18 05/23/18 05/24/18 06:59 06:59 06:59 Intake Total 1750 1340 Output Total 1400 700 Balance 350 640 Result Diagrams: 05/23/18 05:34 05/23/18 05:34 Additional Labs: Accuchecks 05/23/18 05/22/18 05/22/18 05:21 21:10 15:48 POC Glucose 162 H 149 H 119 H Microbiology 05/11/18 13:22 Venous blood - Right Arm Blood Culture - Preliminary Specimen has been received and culture in progress. No Growth to date. 05/11/18 13:14 Venous blood - Right Hand Blood Culture - Preliminary Streptococcus species Laboratory Tests 05/11/18 05/11/18 05/11/18 13:22 13:22 17:02 Band Neuts % (Manual) 19 H Sodium Potassium BUN Creatinine Lactic Acid 2.6 H 2.5 H 05/11/18 05/11/18 05/12/18 21:40 21:40 03:50 Band Neuts % (Manual) 59 H 45 H Sodium 134 L Potassium 3.9 BUN 40 H Creatinine 1.39 H Lactic Acid Phys Exam - Physical Examination Constitutional: NAD HEENT: PERRLA, sclera anicteric, oral pharynx no lesions Neck: no nodes, no JVD, supple, full ROM Respiratory: no wheezing, no rales, no rhonchi, clear to auscultation bilateral Cardiovascular: RRR, no significant murmur, no rub, gallop surgical site CDI Gastrointestinal: soft, no distention, positive bowel sounds Musculoskeletal: pulses present, edema present Neurological: normal sensation, moves all 4 limbs Psychiatric: A&O x 3 Skin: normal turgor, cap refill <2 seconds Dx/Plan (1) C. difficile colitis Status: Acute Comment: Continue Vancomycin 500mg po q6h, change Flagyl 500mg po q6h, add Florastor 250mg BID (2) Incarcerated right inguinal hernia Code(s): K40.30 - UNIL INGUINAL HERNIA, W OBST, W/O GANGR, NOT SPCF RECUR Status: Acute Comment: s/p inguinal hernia repair POD #12, pain control, OOB, stable (3) SBO (small bowel obstruction) Code(s): K56.609 - UNSP INTESTNL OBST, UNSP TO PARTIAL VERSUS COMPLETE OBST Status: Acute Comment: s/p small bowel resection POD # 12, local care, pain control, NGT removed (4) GABRIELLA (acute kidney injury) Code(s): N17.9 - ACUTE KIDNEY FAILURE, UNSPECIFIED Status: Acute Comment: Resolved (5) Diabetes mellitus Code(s): E11.9 - TYPE 2 DIABETES MELLITUS WITHOUT COMPLICATIONS Status: Chronic Comment: ISS, ADA - Plan continue antibiotics, PT/OT, social problems specialist, out of bed/ambulate, DVT proph w/ SCDs Stable currently -: Continue oral Vancomycin/Flagyl -: continue Florastor 250mg BID -: Saline lock IVF's -: Likely transition to [facility] 05/24/18 * .
[2018-05-23] MEDS: Insulin Regular 300 UNITS/3 ML VIAL SC PRN (13:06)
--- NOTE | 2018-05-23 16:43 | PRG ---
DATE OF SERVICE: 05/23/2018 SUBJECTIVE: Mr. Fu remains on the surgical floor. He is postoperative day #12 from repair of a strangulated right inguinal hernia along with laparotomy and segmental small bowel resection. He has been doing quite well for a number of days with his only problem being that he has persistent diarrhea related to Clostridium difficile. He has been treated with oral Flagyl, oral vancomycin, and Florastor. He has been followed by Dr. Lagos (hospitalist) along with me. Mr. Fu has no complaints. He denies pain. He tells me he is eating well and has a good appetite. He denies nausea and vomiting. He is ambulating in the halls with a Walking Team. OBJECTIVE: VITAL SIGNS: On examination, he is afebrile, pulse 79, and blood pressure 144/76. LUNGS: Clear to auscultation. ABDOMEN: Soft and nontender. Midline incision appears to be healing adequately with scant drainage from the sites of the Telfa jose luis. Right inguinal incision is nicely healed. Normoactive bowel sounds are present within his abdomen. LABORATORY DATA: CBC shows white blood cell count of 8.8 with a hemoglobin of 11.2. Basic metabolic panel shows minor abnormalities. ASSESSMENT: The patient continues to do well following his surgery. Hopefully, his diarrhea will resolve quickly, so he may be discharged. [facility] facility has already been arranged for him upon discharge. With any luck, this will be tomorrow. Job ID: [id number]
[2018-05-23] MEDS: Atorvastatin Calcium 40 MG TAB PO SCH (21:12)
[2018-05-24] MEDS: Vancomycin HCl 25 MG/ML Oral PO SCH ×4 (01:09→17:09)
[2018-05-24] MEDS: Furosemide 40 MG TAB PO SCH (08:40)
[2018-05-24] MEDS: Saccharomyces boulardii 250 MG CAP PO SCH ×2 (08:40→21:27)
[2018-05-24] MEDS: Aspirin 81 mg Enteric Coated Tablet PO SCH (08:40)
[2018-05-24] MEDS: Carvedilol 3.125 MG TAB PO SCH ×3 (08:41→21:27)
[2018-05-24] MEDS: metroNIDAZOLE 500 MG TAB PO SCH ×4 (08:41→21:27)
[2018-05-24] MEDS: Lisinopril 5 MG TAB PO SCH ×2 (08:41→21:26)
[2018-05-24] MEDS: Insulin Regular 300 UNITS/3 ML VIAL SC PRN (11:54)
--- NOTE | 2018-05-24 14:05 | PDOC.PN ---
- Subjective Encounter Start Date: 05/24/18 Encounter Start Time: 14:00 Subjective: f/u for c. difficile colitis on current po Vancomycin/Flagyl. -: Still have loose stools but feels ok overall. Tolerating po intake. - Objective MAR Reviewed: Yes Vital Signs & Weight: Vital Signs (12 hours) Temp Pulse Resp BP BP Pulse Ox 05/24/18 11:48 76 16 95 05/24/18 11:39 97.1 F L 76 18 125/79 97 05/24/18 08:41 74 128/79 05/24/18 07:55 98.2 F 74 18 128/79 94 L 05/24/18 07:15 74 16 94 L 05/24/18 03:56 98.1 F 90 20 127/82 97 Weight Admit Weight 270 lb 11.642 oz Weight 260 lb 2 oz Most Recent Monitor Data Heart Rate from ECG 84 NIBP 147/85 NIBP BP-Mean 105 Respiration from ECG 26 SpO2 98 I&O: 05/23/18 05/24/18 05/25/18 06:59 06:59 06:59 Intake Total 1340 1900 Output Total 700 1775 Balance 640 125 Result Diagrams: 05/23/18 05:34 05/23/18 05:34 Additional Labs: Accuchecks 05/24/18 05/24/18 05/23/18 10:32 05:17 20:02 POC Glucose 200 H 133 H 148 H 05/23/18 15:37 POC Glucose 144 H Microbiology 05/11/18 13:22 Venous blood - Right Arm Blood Culture - Preliminary Specimen has been received and culture in progress. No Growth to date. 05/11/18 13:14 Venous blood - Right Hand Blood Culture - Preliminary Streptococcus species Laboratory Tests 05/11/18 05/11/18 05/11/18 13:22 13:22 17:02 Band Neuts % (Manual) 19 H Sodium Potassium BUN Creatinine Lactic Acid 2.6 H 2.5 H 05/11/18 05/11/18 05/12/18 21:40 21:40 03:50 Band Neuts % (Manual) 59 H 45 H Sodium 134 L Potassium 3.9 BUN 40 H Creatinine 1.39 H Lactic Acid Phys Exam - Physical Examination Constitutional: NAD HEENT: PERRLA, sclera anicteric, oral pharynx no lesions Neck: no nodes, no JVD, supple, full ROM Respiratory: no wheezing, no rales, no rhonchi, clear to auscultation bilateral S1, S2 Cardiovascular: RRR, no significant murmur, no rub, gallop minimal TTP in lower quadrants Gastrointestinal: soft, no distention, positive bowel sounds Musculoskeletal: pulses present, edema present Neurological: normal sensation, moves all 4 limbs Psychiatric: A&O x 3 Skin: normal turgor, cap refill <2 seconds Dx/Plan (1) C. difficile colitis Status: Acute Comment: Continue Vancomycin 500mg po q6h, change Flagyl 500mg po q6h, add Florastor 250mg BID (2) Incarcerated right inguinal hernia Code(s): K40.30 - UNIL INGUINAL HERNIA, W OBST, W/O GANGR, NOT SPCF RECUR Status: Acute Comment: s/p inguinal hernia repair POD #13, pain control, OOB, stable (3) SBO (small bowel obstruction) Code(s): K56.609 - UNSP INTESTNL OBST, UNSP TO PARTIAL VERSUS COMPLETE OBST Status: Acute Comment: s/p small bowel resection POD # 13, local care, pain control, NGT removed (4) GABRIELLA (acute kidney injury) Code(s): N17.9 - ACUTE KIDNEY FAILURE, UNSPECIFIED Status: Acute Comment: Resolved (5) Diabetes mellitus Code(s): E11.9 - TYPE 2 DIABETES MELLITUS WITHOUT COMPLICATIONS Status: Chronic Comment: ISS, ADA, add Lantus 10u HS - Plan continue antibiotics, PT/OT, social worker assistant, out of bed/ambulate Stable currently -: Continue Flagyl/Vancomycin po -: Continue Florastor 250mg BID -: OOB/ambulate with PT -: Add Lantus 10u HS * Awaiting approval for SNF transfer to [facility]
--- NOTE | 2018-05-24 15:55 | PRG ---
DATE OF SERVICE: 05/24/2018 SUBJECTIVE: Mr. Fu is postoperative day #13 from repair of a strangulated right inguinal hernia with small bowel resection. He continues to do well. He is eating well and denies any pain. Unfortunately, he was diagnosed with Clostridium difficile on 05/16. He has been treated with a course of Flagyl and vancomycin, but continues to have multiple diarrhea bowel movements per day. It appears that he had about 6 diarrhea bowel movements yesterday. He has had 2 fairly large volume diarrhea bowel movements today on the day shift. He has no other complaints. OBJECTIVE: VITAL SIGNS: On examination, he is afebrile. Vital signs within normal limits. LUNGS: Clear to auscultation. ABDOMEN: Benign. ASSESSMENT: The patient with continued Clostridium difficile diarrhea. He has been treated with oral vancomycin and metronidazole as well as Florastor. Unfortunately, he cannot be reasonably discharged to a jail facility while he is still having high-volume diarrhea. He is showing no signs of dehydration and feels well. I will consult Gastroenterology today to see if there is any additional thoughts regarding possible causes of his diarrhea or possible other treatments to consider to expedite the resolution of this problem. Job ID: [id number]
[2018-05-24] MEDS ORDERED: Insulin Glargine 10 UNITS in Pre-Filled Syringe 1 EACH SC SCH (21:00)
[2018-05-24] MEDS: Atorvastatin Calcium 40 MG TAB PO SCH (21:27)
[2018-05-24] MEDS: Cholestyramine/Aspartame 4 gm Packet PO SCH (22:59)
--- NOTE | 2018-05-24 23:42 | CON ---
DATE OF CONSULTATION: 05/24/2018 TYPE OF CONSULTATION: GI Inpatient. REQUESTING PHYSICIAN: Dr. Tommie Joya. REASON FOR CONSULTATION: C. difficile colitis. HISTORY OF PRESENT ILLNESS: Thomas Fu is a very pleasant 62-year-old gentleman, who was admitted to the hospital on 05/11/2018 with a strangulated right inguinal hernia and necrotic section of small bowel with sepsis. The patient underwent emergent hernia repair and had to have a small bowel resection of 64.5 cm; it is not entirely clear from the record whether this was distal small bowel, but I assume it probably was, as this was in the right lower quadrant. At any rate, the patient was in the ICU for several days receiving broad-spectrum antibiotics. He was able to improve fairly rapidly with regard to his respiratory status, abdominal pain, and toleration of oral intake; however, he did develop significant diarrhea following the surgery. Stool studies on 05/16/2018 were positive for C. difficile antigen and toxin, and he was started on vancomycin and Flagyl. He has been on C. difficile treatment for the past 8 to 9 days now, with continued clinical improvement otherwise, but still with significant diarrhea. He evidently had 6 large volume bowel movements yesterday, though only 2 bowel movements so far today. The patient himself says he is feeling all right with no more abdominal pain. He has good appetite and good oral intake. He characterizes his bowel movements as soft to loose, but with no bleeding. He has had no fever. He denies any chronic diarrhea prior to this acute presentation. PAST MEDICAL HISTORY: Morbid obesity, questionable seizure disorder, systolic congestive heart failure with ejection fraction 25% to 30%, ischemic cardiomyopathy, diabetes type 2, hypertension, hyperlipidemia, coronary artery disease, myocardial infarction, noncompliance with medical therapy, coronary artery bypass graft. ALLERGIES: NO KNOWN DRUG ALLERGIES. CURRENT INPATIENT MEDICATIONS: 1. DuoNeb q.6 hours. 2. Aspirin 81 mg daily. 3. Lipitor 40 mg daily. 4. Coreg 3.125 mg t.i.d. 5. Lasix 40 mg daily. 6. Sliding scale insulin. 7. Lisinopril 5 mg b.i.d. 8. Metronidazole 500 mg p.o. q.i.d. 9. Pantoprazole 40 mg p.o. daily. 10. Promethazine p.r.n. 11. Florastor 250 mg p.o. b.i.d. 12. Oral vancomycin 500 mg p.o. every 6 hours. 13. Ambien p.r.n. SOCIAL HISTORY: He quit smoking about 6 years ago. No alcohol or drug abuse. FAMILY HISTORY: Noncontributory. REVIEW OF SYSTEMS: Full review of systems including constitutional, head, eyes, ears, nose, throat, GI, , cardiovascular, respiratory, musculoskeletal, and neurologic systems is negative except as noted in the HPI. PHYSICAL EXAMINATION: VITAL SIGNS: Temperature 97.6, pulse 81, blood pressure 112/74, and 96% oxygen saturation on room air. GENERAL: 62-year-old man lying in bed comfortably, in no acute distress, just finished his dinner. SKIN: No jaundice. No rashes are palpable. EYES: No scleral icterus. Extraocular movements intact. ENT: Mucous membranes moist. No oral lesions. LYMPH: No submandibular or supraclavicular lymphadenopathy. Thyroid, nontender to palpation. HEART: Regular rate and rhythm. LUNGS: Clear to auscultation bilaterally. ABDOMEN: Bowel sounds present. Soft, it is nondistended, nontender to palpation throughout. No masses or organomegaly appreciated. EXTREMITIES: No peripheral edema. VESSELS: Radial pulses 2+ bilaterally. NEURO: Cranial nerves 2 through 12 intact bilaterally. No focal deficits. LABORATORY STUDIES: WBC 8.8, hemoglobin 11.2, platelets 361. Glucose 147, sodium 134, potassium 4.6, BUN 7, creatinine 0.80. Stool studies from 05/16/2018 were positive for C. difficile antigen and toxin and elevated fecal lactoferrin. ASSESSMENT AND PLAN: 1. Clostridium difficile colitis. 2. Diarrhea, following limited small bowel resection for strangulated right inguinal hernia. I think the patient's postoperative diarrhea is indeed likely primarily driven by his Clostridium difficile infection. He has now been on treatment for the past 8 days and it is unclear how much improvement he has had in his diarrhea, though it looks like he has only had 2 bowel movements today. Otherwise, he is doing very well. I would recommend simply continuing with the oral vancomycin as well as the Florastor. Oral Flagyl is no longer standard of care for first-line treatment of Clostridium difficile, and I think it can be discontinued. I would continue the vancomycin for another 2 weeks at current dosing of 500 mg 4 times per day. No need to recheck the stool at this time. 3. It is also possible that the patient may be experiencing some degree of bile acid malabsorption secondary to his recent small bowel resection, particularly if the small bowel resected included ileum. I think it would be reasonable to try adding cholestyramine 1 g twice daily to see if this further improves his diarrhea. 4. We can plan to have him follow up with me in the GI Clinic in the next 2 to 3 weeks, near the end of his vancomycin course, to see how he is doing with all this. Thank you for the consultation. Please call anytime with questions or concerns. Job ID: [id number]
[2018-05-25] MEDS: Vancomycin HCl 25 MG/ML Oral PO SCH ×3 (00:28→12:09)
[2018-05-25] MEDS: Lisinopril 5 MG TAB PO SCH (08:23)
[2018-05-25] MEDS: Aspirin 81 mg Enteric Coated Tablet PO SCH (08:23)
[2018-05-25] MEDS: metroNIDAZOLE 500 MG TAB PO SCH ×3 (08:23→17:02)
[2018-05-25] MEDS: Carvedilol 3.125 MG TAB PO SCH ×2 (08:24→16:09)
[2018-05-25] MEDS: Saccharomyces boulardii 250 MG CAP PO SCH (08:24)
[2018-05-25] MEDS: Furosemide 40 MG TAB PO SCH (08:24)
[2018-05-25] MEDS: Cholestyramine/Aspartame 4 gm Packet PO SCH (10:40)
[2018-05-25 12:05] VITALS: TEMP 97.7
[2018-05-25] MEDS: Insulin Regular 300 UNITS/3 ML VIAL SC PRN (12:09)
[2018-05-25 14:21] VITALS: BMI 38.4
--- NOTE | 2018-05-25 15:12 | PRG ---
DATE OF SERVICE: 05/25/2018 GI INPATIENT DAILY PROGRESS NOTE SUBJECTIVE: Mr. Fu is feeling pretty well today. He says he has had only 1 bowel movement so far today. He is still tolerating his diet. No abdominal pain or nausea. Questran was added last night. OBJECTIVE: VITAL SIGNS: Temperature 97.7, pulse 77, blood pressure 126/80, 96% oxygen saturation on room air. GENERAL: No acute distress. HEART: Regular rate and rhythm. LUNGS: Clear to auscultation bilaterally. ABDOMEN: Soft, nontender to palpation. EXTREMITIES: No peripheral edema. LABORATORY STUDIES: Glucose 184. ASSESSMENT AND PLAN: 1. Clostridium difficile colitis. 2. Diarrhea, following limited small bowel resection for strangulated right inguinal hernia. Mr. Fu is looking pretty good today. I would stick with the plan to give vancomycin at current dosing 4 times a day for another 2 weeks, along with Florastor. Also, go ahead and continue the cholestyramine 4 g b.i.d. I will plan to see him back in clinic in the next 2 to 3 weeks near the end of this vancomycin course to see how he has done with all this. GI will sign off, but please call anytime with questions or concerns. Job ID: [id number]
[2018-05-25 16:21] VITALS: BP 132/82
--- NOTE | 2018-05-25 16:24 | PRG ---
DATE OF SERVICE: 05/25/2018 SUBJECTIVE: Mr. Fu is finishing off a big double cheeseburger when I walked in the room. He had no complaints. He said he is ready to go home. He is afebrile, heart rate 77, respiratory rate is 20, oxygen saturation is 96 on room air, blood pressure 126/80. I have seen him in followup at this time in the critical care unit. His lungs are completely clear. He is not having any shortness of breath. He has been discharged by Gastroenterology and general surgeon. Obviously, he is recovering nicely given his appetite and his p.o. intake. He is currently being treated for C difficile colitis. We will see him as needed in the future. Job ID: [id number]
--- NOTE | 2018-05-26 03:35 | DIS ---
DATE OF ADMISSION: 05/11/2018 DATE OF DISCHARGE: 05/25/2018 TRANSFER CARE NOTE: DISCHARGE DIAGNOSES: 1. Clostridium difficile colitis. 2. Status post incarcerated right inguinal hernia with hernia repair, 05/11/2018. 3. Status post small bowel obstruction with incarcerated inguinal hernia. 4. Acute kidney injury, resolved. 5. Diabetes mellitus type 2, insulin requiring. 6. Deconditioning, improved. CONSULTS: 1. Primary service attending Dr. Joya with General Surgery Service. 2. Dr. Garland with GI Service. 3. Dr. Lozano with Pulmonology Service. PERTINENT LABORATORY AND X-RAY FINDINGS: Creatinine ranged between 0.66-1.54. Estimated GFR ranged between 46 to greater than 90. Lactic acid level ranged between 2.5-2.6. Lipase level less than 4. CBC showed a white blood cell count ranged between 4.9-9.5, hemoglobin ranged between 10.7-14.8. Blood cultures one out of two positive on 05/11/2018 for alpha hemolytic Streptococcus species likely skin contaminant. C. difficile antigen and toxin dated 05/16/[address] of the abdomen and pelvis dated 05/11/2018 showed high-grade small bowel obstruction secondary to right inguinal hernia containing loops of small bowel. Abdominal radiographs dated 05/11/2018 showed enteric tube with tip projecting over the gastric body. Incarcerated right inguinal hernia. Pathology dated 05/11/2018 showed fibrovascular tissue consistent with hernia sac and small bowel mucosa with transmural necrosis, acute serositis, and congestion. No malignancy identified. HOSPITAL COURSE: The patient was initially admitted after presenting with severe abdominal pain with evidence of incarcerated right inguinal hernia by CT imaging. The patient was admitted to the surgical floor and placed on n.p.o. status after NG tube placement. The patient also met criteria for septic shock and was placed on aggressive IV fluids as well as Zosyn and vancomycin. The patient was treated with IV fluids due to hypotension as well as acute kidney injury, both improving with fluid resuscitation. The patient underwent right inguinal hernia repair without mesh and with associated laparotomy with segmental small bowel resection due to a strangulated right inguinal hernia on 05/11/2018. The patient was slow to clinically improve and continued to receive general supportive management. Postoperatively, the patient continue to incrementally improve, managed by the General Surgery Service. The patient underwent evaluation for stool sampling after diarrhea was noted. The patient was positive for C difficile antigen and toxin and initiated on vancomycin and Flagyl. The patient received the treatment for approximately 8 days during the hospital course with decreasing stool volume and frequency. The patient was evaluated for ongoing skilled care due to deconditioning, however, had been ambulating with Physical Therapy Service. Greater than 200 feet by the time of discharge. The patient was initially evaluated for potential transfer to a local half-way facility, however, was denied due to insurance complications. The patient was advanced on his diet, tolerating regular oral intake, ambulating with a rolling walker and voiding appropriately. The patient overall remained clinically stable. Stable vital signs through the remainder of the hospital course. I have examined the patient at the time of discharge with stable vital signs noted. The patient verbalized understanding and agreement for discharging home. DISCHARGE MEDICATIONS: 1. Enteric-coated aspirin 81 mg p.o. daily. 2. Lipitor 40 mg p.o. at bedtime. 3. Coreg 3.125 mg p.o. t.i.d. 4. Cholestyramine 4 g p.o. b.i.d. 5. Lasix 40 mg p.o. daily. 6. Vancomycin 500 mg p.o. q.i.d. x10 days. 7. Florastor 250 mg p.o. b.i.d. x30 days. 8. Glargine insulin 10 units subcutaneously at bedtime. 9. Lisinopril 5 mg p.o. b.i.d. FOLLOWUP: Follow up with his primary care provider at [place], [place]. The patient will follow up with Dr. Joya in 7 days after discharge. The patient will follow up with Dr. Garland in 2 to 3 weeks after discharge. CONDITION ON DISCHARGE: Stable. ACTIVITY: Ad-jonathan. DIET: ADA. SPECIAL INSTRUCTIONS: Daily gauze dressing changes to the lower abdomen. CODE STATUS: Full. DISPOSITION: Home, 05/25/2018. Job ID: [id number]
== END 2018-05-25 17:21 | disposition home or self-care (01) | DRG 853 ==
LOC: ERS 12:35 → SDC 17:13 → ERS 17:13 → CCU 20:40 → SJJU 05-15 16:08
PROVIDERS: ADMIT Specialist; ATTEND Specialist
PROC: 0DB80ZZ Excision of Small Intestine, Open Approach (ICD-10-PCS; principal; 2018-05-11)
PROC: 0YQ50ZZ Repair Right Inguinal Region, Open Approach (ICD-10-PCS; 2018-05-11)
PROC: 0D9670Z Drainage of Stomach with Drainage Device, Via Natural or Artificial Opening (ICD-10-PCS; 2018-05-11)
PROC: 3E033XZ Introduction of Vasopressor into Peripheral Vein, Percutaneous Approach (ICD-10-PCS; 2018-05-11)
PROC: 3E0M05Z Introduction of Adhesion Barrier into Peritoneal Cavity, Open Approach (ICD-10-PCS; 2018-05-11)
PROC: 0D9670Z Drainage of Stomach with Drainage Device, Via Natural or Artificial Opening (ICD-10-PCS; 2018-05-14)
DX: A40.9 Streptococcal sepsis, unspecified (principal); K40.40 Unilateral inguinal hernia, with gangrene, not specified as recurrent; R65.21 Severe sepsis with septic shock; J96.01 Acute respiratory failure with hypoxia; G93.41 Metabolic encephalopathy; A04.72 Enterocolitis due to Clostridium difficile, not specified as recurrent; K56.609 Unspecified intestinal obstruction, unspecified as to partial versus complete obstruction; N17.9 Acute kidney failure, unspecified; I50.22 Chronic systolic (congestive) heart failure; E87.1 Hypo-osmolality and hyponatremia; I47.2 Ventricular tachycardia; J98.11 Atelectasis; K56.7 Ileus, unspecified; E66.01 Morbid (severe) obesity due to excess calories; Z68.38 Body mass index [BMI] 38.0-38.9, adult; I11.0 Hypertensive heart disease with heart failure; E11.9 Type 2 diabetes mellitus without complications; Z87.891 Personal history of nicotine dependence; Z79.4 Long term (current) use of insulin; Z79.82 Long term (current) use of aspirin; I25.5 Ischemic cardiomyopathy; E78.5 Hyperlipidemia, unspecified; I25.10 Atherosclerotic heart disease of native coronary artery without angina pectoris; I25.2 Old myocardial infarction; Z95.1 Presence of aortocoronary bypass graft; Z91.19 Patient's noncompliance with other medical treatment and regimen; G40.909 Epilepsy, unspecified, not intractable, without status epilepticus; R41.0 Disorientation, unspecified; Z53.29 Procedure and treatment not carried out because of patient's decision for other reasons
CPT/HCPCS: 36415; 36416; 36556; 70450; 71045; 71275; 74018; 74177; 76705; 80048; 80053; 80061; 80306; 81001; 81003; 81015; 82805; 83605; 83630; 83690; 83735; 83880; 84100; 84443; 84484; 85007; 85025; 85027; 87040; 87149; 87324; 87449; 87493; 87804; 88302; 88307; 93005; 93306; 94002; 94003; 94640; 95816; 95819; 96361; 96372; 96374; 96375; 96376; A4216; C9113; G0378; J0690; J1160; J1200; J1650; J1815; J1885; J1940; J2060; J2250; J2270; J2370; J2405; J2543; J2550; J2704; J3010; J3480; J7050; J7620; P9045; P9047; Q0162; Q9967

== ENCOUNTER 2018-08-09 10:50 | Observation (INO) | payer MEDICAID, MEDICARE ==
[2018-08-09] MEDS ORDERED: Nitroglycerin 2% Ointment 1 INCH/1 GM Packet ONE (11:27)
[2018-08-09] MEDS ORDERED: Furosemide 40 MG/4 ML VIAL ONE ×2 (11:27→11:29)
[2018-08-09] MEDS ORDERED: Aspirin Chewable 81 MG TAB ONE (11:27)
--- NOTE | 2018-08-09 11:35 | RAD ---
FRONTAL RADIOGRAPH CHEST: Date: 08-09-18 Comparison: 05-15-18 History: Chest numbness, chest pain, swollen legs. FINDINGS: Cardiac silhouette is enlarged, a stable finding. There is no pneumothorax. Midline sternotomy wires are present. Atherosclerotic calcification of the aortic arch noted. There is pulmonary vascular congestion with increased linear interstitial density and bilateral perih ilar regions. No significant airspace disease. No pleural fluid appreciated. IMPRESSION: Prominence of the cardiac silhouette with pulmonary vascular congestion and perihilar interstitial pr ominence may signify a degree of interstitial pulmonary edema in the proper clinical setting. No loba r consolidation or alveolar edema. PA and lateral imaging of the chest following treatment is suggest ed. POS: [facility]
[2018-08-09 11:36] LABS: #Basophils 0.1 thou/uL (0.0-0.2); #Eosinphils 0.3 thou/uL (0.0-0.7); #Lymphocytes 1.7 thou/uL (1.20-3.40); #Monocytes 0.9 thou/uL (0.11-0.59); #Neutrophils 4.1 thou/uL (1.40-6.50); %Basophils 0.9 % (0.0-1.0); %Eosinophils 4.4 % (0.0-10.0); %Lymphocytes 23.8 % (21.0-51.0); %Monocytes 12.3 % (0.0-10.0); %Neutrophils 58.5 % (42.0-75.0); Hemoglobin 12.1 g/dL (14.0-18.0); Mean Corpuscular HGB CONC 31.4 g/dL (32.0-36.0); Mean Corpuscular Hemoglobin 29.1 pg (27.0-31.0); Mean Corpuscular Volume 92.7 fL (78.0-98.0); Mean Platelet Volume 8.9 fL (7.4-10.4); Platelet Count 218 thou/uL (130-400); RBC Distribution Width 15.8 % (11.5-14.5); Red Blood Cell (RBC) Count 4.15 mill/uL (4.70-6.10); White Blood Cell (WBC) Count 7.1 thou/uL (4.8-10.8)
[2018-08-09 12:11] LABS: ALT (SGPT) 13 U/L (8-55); AST (SGOT) 28 U/L (5-34); Albumin 3.7 g/dL (3.4-4.8); Alkaline Phosphatase 91 U/L (40-150); Anion Gap 13 mmol/L (10-20); BUN (Urea Nitrogen) 31 mg/dL (8.4-25.7); Bilirubin, Total 0.3 mg/dL (0.2-1.2); CK (CPK) 76 U/L (30-200); Calc. Creatinine Clearance 0 mL/min (70-130); Calcium 9.6 mg/dL (7.8-10.44); Carbon Dioxide 26 mmol/L (23-31); Chloride 100 mmol/L (98-107); Estimated GFR-MDRD 81; Globulin 4.8 g/dL (2.4-3.5); Glucose 128 mg/dL (80-115); Protein, Total 8.5 g/dL (5.8-8.1); Sodium 134 mmol/L (136-145)
--- NOTE | 2018-08-09 12:19 | ULT ---
BILATERAL LOWER EXTREMITY VENOUS ULTRASOUND WITH DOPPLER: Date: 08/09/18 HISTORY: Edema. COMPARISON: 01/17/18. TECHNIQUE: Bolivar scale, color flow, Doppler imaging, and spectral waveform analysis performed of the left and rig ht lower extremity deep venous system. FINDINGS: Bilaterally, there is compressibility, presence of flow, and augmentation in the common femoral, femo ral vein, and popliteal vein. There is flow in bilateral greater saphenous vein, profunda vein, and p osterior tibial vein. IMPRESSION: No evidence of thrombus in the left or right lower extremity deep venous system. POS: [id number]
[2018-08-09] MEDS ORDERED: Morphine 4 MG/ML VIAL ONE (12:34)
[2018-08-09] MEDS ORDERED: HumaLOG 300 UNITS/3 ML VIAL SC PRN ×2 (18:34)
[2018-08-09] MEDS ORDERED: hydrALAZINE 20 MG/ML VIAL SLOW IVP PRN (18:34)
[2018-08-09] MEDS ORDERED: Acetaminophen 325 MG TAB PO PRN (18:41)
[2018-08-09] MEDS ORDERED: Ondansetron PF 4 MG/2 ML Vial IVP PRN (18:41)
[2018-08-09] MEDS ORDERED: Ondansetron ODT 4 MG TAB PO PRN (18:41)
[2018-08-09] MEDS ORDERED: Dextrose 50% Abboject 50 ML SYRINGE SLOW IVP PRN (18:41)
[2018-08-09] MEDS ORDERED: Dextrose 5% in Water 1,000 ML IV PRN (18:41)
[2018-08-09 20:22] VITALS: BMI 44.1
--- NOTE | 2018-08-09 20:52 | HP ---
PRIMARY CARE PHYSICIAN: At [facility]. CHIEF COMPLAINT: Shortness of breath and lower extremity edema. HISTORY OF PRESENT ILLNESS: Mr. Fu is a 62-year-old male with a past medical history of systolic heart failure with an ejection fraction of 25% to 30%, coronary artery disease, history of myocardial infarction, diabetes mellitus type 2, hyperlipidemia, hypertension, status post coronary artery bypass graft, who had presented to [facility] with chest pain, shortness of breath, and lower extremity edema over the last 2 days. He sees a channel partners, Dr. Madera in the past. The patient was admitted about 4 months ago for similar symptoms. The patient has a strong history of being noncompliant with his home medications. He states that he takes his home medications as directed, however, he has been missing a few doses here and there on occasion. He had a stress test and an echocardiogram within the last 12 months, last echocardiogram displayed an ejection fraction of 25% to 30% and no further changes from prior studies. During his ER visit, he had remained in sinus rhythm on the monitor, serial troponins found to be negative x3. BNP elevated at 207.2. He had notable lower extremity edema with crackles in bibasilar areas bilaterally; therefore, he was given IV furosemide 40 mg x1, aspirin 325, and an inch of nitropaste topically. His chest pain and shortness of breath had resolved; however, his lower extremity edema remained unchanged. Due to his underlying history of systolic heart failure and his history of noncompliance, the patient will be admitted under observation. He will be placed on his home medications and treated with IV furosemide 40 mg b.i.d. There was a long discussion with the patient to discuss recommendations on medication compliance, the patient verbalized his understanding for this and he states he will try to be more compliant in the future. REVIEW OF SYSTEMS: All other systems reviewed and found to be negative unless mentioned in the HPI. PAST MEDICAL HISTORY: Significant for systolic heart failure, coronary artery disease status post coronary artery bypass graft, history of myocardial infarction, diabetes mellitus type 2, hyperlipidemia, and hypertension. PAST SURGICAL HISTORY: Coronary artery bypass graft surgery, abdominal surgery for small-bowel obstruction. PSYCHIATRIC HISTORY: None. SOCIAL HISTORY: The patient is a former tobacco user, however, denies any alcohol, tobacco, or illicit drug use. KNOWN ALLERGIES: No known drug allergies. CURRENT HOME MEDICATIONS: 1. Metformin 1 tablet oral twice daily. 2. Glipizide 5 mg oral twice daily. 3. Lisinopril 5 mg oral twice daily. 4. Carvedilol 3.125 mg oral t.i.d. 5. Furosemide 40 mg oral twice daily. 6. Aspirin 81 mg daily. 7. Atorvastatin 40 mg oral at bedtime. 8. Lantus 12 units subcu at bedtime. PHYSICAL EXAMINATION: VITAL SIGNS: Blood pressure 118/65, pulse 75, respirations 16, temperature 97.6 degrees Fahrenheit, and O2 saturations 98% on room air. GENERAL: The patient is awake, alert, and oriented x3. No acute distress noted. The patient appears morbid obese. HEENT: Atraumatic and normocephalic. Pupils are round and reactive to light. Extraocular muscles intact. Moist mucous membranes noted. Poor oral hygiene noted. NECK: Soft and supple. No JVD. No bruit. Trachea midline. CARDIOVASCULAR: Positive S1 and S2. Regular rate and rhythm. No murmur auscultated. RESPIRATORY: Coarse breath sounds bilaterally with crackles at bases. ABDOMEN: Soft and nontender. Bowel sounds present. No rebound. No rigidity. MUSCULOSKELETAL: Strength 5+ bilaterally in upper and lower extremities. Moves all extremities equally. 2+ pitting edema noted in bilateral lower extremities. NEUROLOGIC: Cranial nerves 2 through 12 grossly intact. No focal deficits noted. Speech intact and normal. Gait not assessed. SKIN: Warm and dry. Chronic skin changes in bilateral lower extremities with diffuse open leg wounds bilaterally due to chronic edema. PSYCHIATRIC: Good mood and affect. LABORATORY DATA: WBC 7.1, RBC 4.15, hemoglobin 12.1, platelet 218. Sodium 135, potassium 5.0, anion gap 13, BUN 31, creatinine 0.94, estimated GFR 81, glucose 128. AST 28, ALT 13. Troponin 0.019, less than 0.010, 0.026. BNP 207.2. Lipase 20. DIAGNOSTIC IMAGING: Portable chest x-ray shows prominence of the cardiac silhouette with pulmonary vascular congestion and perihilar interstitial prominence may signify degree of interstitial pulmonary edema in the proper clinical setting. No lobar consolidation or alveolar edema. PA and lateral imaging of the chest following treatment is suggested. Bilateral lower extremity venous ultrasound with Doppler showed no evidence of thrombus in the left or right lower extremity deep venous system. ASSESSMENT AND PLAN: 1. Chest pain. The patient currently asymptomatic. This could likely be secondary to his underlying systolic heart failure. The patient has a strong history of being noncompliant with his home medications. This was thoroughly discussed with the patient and strongly recommended post discharge. 2. Systolic heart failure, the patient will be placed on his home medications, IV furosemide 40 mg b.i.d. will be added. Recheck chest x-ray in the morning. He had recently underwent a stress test and echocardiogram within the last 12 months, therefore, no further cardiac workup needed at this time. Serial troponins found to be negative x3 and the patient remains in normal sinus rhythm. 3. Diabetes mellitus, type 2. The patient will be placed on his home medications, with frequent Accu-Cheks and he will also be started on insulin sliding scale as needed. 4. History of coronary artery disease, status post coronary artery bypass graft. The patient will be placed on his home regimen at this time. 5. Hypertension. Continue home regimen. Currently stable at this time. Monitor vital signs closely. 6. Lower extremity edema, likely secondary to #2. The patient will be placed on IV Lasix, due to lower extremity wounds. We will place consult for wound care while he is in the hospital. 7. Hyperlipidemia. Continue home regimen. 8. Deep venous thrombosis and gastrointestinal prophylaxis. 9. Strong history of medication noncompliance, I had a long discussion with the patient to practice medication compliance once he is discharge and strongly recommended to follow up with his channel [facility], Dr. Madera. 10. Morbid obesity. CODE STATUS: Full code. DISPOSITION: Pending further workup and clinical findings, the patient likely discharged tomorrow if he is stable status post IV Lasix, he will likely be placed back on his home medications and follow up with his [facility] as outpatient. He will be likely discharged home within 1 to 2 midnights. Job ID: [id number]
[2018-08-09] MEDS: Lisinopril 5 MG TAB PO SCH (22:03)
[2018-08-09] MEDS: Furosemide 40 MG/4 ML VIAL SLOW IVP SCH (22:03)
[2018-08-09] MEDS: Atorvastatin Calcium 40 MG TAB PO SCH (22:04)
[2018-08-09] MEDS: Insulin Glargine 12 UNITS in Pre-Filled Syringe SC SCH (22:12)
[2018-08-10] MEDS: Benzonatate 100 MG CAP PO PRN ×2 (00:07→21:19)
[2018-08-10 05:45] LABS: #Eosinphils 0.3 thou/uL (0.0-0.7); #Lymphocytes 1.3 thou/uL (1.20-3.40); #Monocytes 0.8 thou/uL (0.11-0.59); #Neutrophils 4.3 thou/uL (1.40-6.50); %Basophils 0.7 % (0.0-1.0); %Lymphocytes 19.5 % (21.0-51.0); %Monocytes 11.4 % (0.0-10.0); %Neutrophils 64.4 % (42.0-75.0); Mean Corpuscular HGB CONC 32.1 g/dL (32.0-36.0); Mean Corpuscular Hemoglobin 29.1 pg (27.0-31.0); Mean Corpuscular Volume 90.7 fL (78.0-98.0); Mean Platelet Volume 8.8 fL (7.4-10.4); Platelet Count 196 thou/uL (130-400); RBC Distribution Width 15.5 % (11.5-14.5); Red Blood Cell (RBC) Count 4.13 mill/uL (4.70-6.10); White Blood Cell (WBC) Count 6.7 thou/uL (4.8-10.8)
[2018-08-10 06:00] LABS: Anion Gap 12 mmol/L (10-20); BUN (Urea Nitrogen) 25 mg/dL (8.4-25.7); Calc. Creatinine Clearance 170 mL/min (70-130); Calcium 8.8 mg/dL (7.8-10.44); Carbon Dioxide 28 mmol/L (23-31); Chloride 101 mmol/L (98-107); Estimated GFR-MDRD Greater than 90; Glucose 99 mg/dL (80-115); Potassium 4.4 mmol/L (3.5-5.1); Sodium 137 mmol/L (136-145)
[2018-08-10] MEDS: Carvedilol 3.125 MG TAB PO SCH ×2 (08:47→16:56)
[2018-08-10] MEDS: Aspirin 81 mg Enteric Coated Tablet PO SCH (08:47)
[2018-08-10] MEDS: Furosemide 40 MG/4 ML VIAL SLOW IVP SCH ×2 (08:47→21:21)
[2018-08-10] MEDS: guaiFENesin ER 600 MG TAB PO SCH ×2 (08:47→21:19)
[2018-08-10] MEDS: metFORMIN 500 MG TAB PO SCH ×2 (08:47→16:56)
[2018-08-10] MEDS: Lisinopril 5 MG TAB PO SCH ×2 (08:47→21:18)
[2018-08-10] MEDS: Pantoprazole 40 MG GRANULES PACKET PO SCH (08:48)
[2018-08-10] MEDS: Enoxaparin Sodium 40 MG/0.4 ML SYRINGE SC SCH (08:48)
--- NOTE | 2018-08-10 16:11 | RAD ---
CHEST 2 VIEWS: Date: 08/10/18 HISTORY: Pulmonary congestion. COMPARISON: 08/09/18. FINDINGS: Monitor leads overlie the chest. Postop midline sternotomy. Bilateral vascular congestion with minima l interstitial changes and small pleural effusions with borderline size heart. No new confluent pneum onia. IMPRESSION: Overall stable appearing vascular congestion and small pleural effusions. Continue short-term follow- up. POS: T[facility]
[2018-08-10] MEDS: Atorvastatin Calcium 40 MG TAB PO SCH (21:18)
[2018-08-10] MEDS: Insulin Glargine 12 UNITS in Pre-Filled Syringe SC SCH (21:22)
--- NOTE | 2018-08-11 08:20 | PDOC.PN ---
- Subjective Encounter Start Date: 08/10/18 Subjective: Patient states his shortness of breath has improved slightly. -: Denies any chest pain or cough. No n/v. Tolerating oral intake. -: No abdominal pain. No fevers, chills or sweats. Has been up and walking, with mild improvement in EL. Reports orthopnea which is chronic. Requesting a hospital bed. He had one previously when he was living in [place] but left it behind. - Objective Resuscitation Status - Order Detail: 08/09/18 18:41 Resuscitation Status Routine Co-Sign Provider: Resuscitation Status: FULL: Full Resuscitation Vital Signs & Weight: Vital Signs (12 hours) Temp Pulse Resp BP Pulse Ox 08/11/18 07:38 97.7 F 66 16 128/59 L 98 08/11/18 05:16 97.5 F L 68 20 114/62 94 L 08/10/18 21:18 77 Weight Admit Weight 273 lb 6.4 oz Weight 261 lb 1.6 oz I&O: 08/10/18 08/11/18 08/12/18 06:59 06:59 06:59 Intake Total 660 1500 Output Total 2750 3000 Balance -2090 -1500 Result Diagrams: 08/10/18 05:03 08/10/18 05:03 Additional Labs: Accuchecks 08/11/18 08/10/18 08/10/18 05:19 20:55 17:34 POC Glucose 120 H 202 H 131 H 08/10/18 11:28 POC Glucose 158 H Phys Exam - Physical Examination Constitutional: NAD HEENT: PERRLA, moist MMs, sclera anicteric Neck: supple, full ROM Respiratory: clear to auscultation bilateral Cardiovascular: RRR Gastrointestinal: soft, non-tender, no distention, positive bowel sounds Musculoskeletal: no edema, pulses present Neurological: normal sensation, moves all 4 limbs Psychiatric: normal affect, A&O x 3 Skin: no rash Dx/Plan (1) Acute exacerbation of CHF (congestive heart failure) Code(s): I50.9 - HEART FAILURE, UNSPECIFIED Status: Acute (2) Coronary artery disease Code(s): I25.10 - ATHSCL HEART DISEASE OF [place] CORONARY ARTERY W/O ANG PCTRS Status: Chronic (3) Diabetes mellitus type 2 in obese Code(s): E11.69 - TYPE 2 DIABETES MELLITUS WITH OTHER SPECIFIED COMPLICATION; E66.9 - OBESITY, UNSPECIFIED Status: Chronic (4) HTN (hypertension) Code(s): I10 - ESSENTIAL (PRIMARY) HYPERTENSION Status: Chronic Qualifiers: Hypertension type: essential hypertension Qualified Code(s): I10 - Essential (primary) hypertension Comment: Monitor vital signs, titrate antihypertensives as needed (5) Non compliance w medication regimen Code(s): Z91.14 - PATIENT'S OTHER NONCOMPLIANCE WITH MEDICATION REGIMEN Status : Chronic - Plan cont current plan of care Patient with some improvement. -: Requesting hospital bed which he will get from PCP. -: Repeat CXR. * I have reviewed and discussed patient with Denisa. Please see her documented findings and hx for full details. Continue diuresis, requesting hospital bed * for home by PCP.
[2018-08-11] MEDS: Carvedilol 3.125 MG TAB PO SCH (09:25)
[2018-08-11] MEDS: metFORMIN 500 MG TAB PO SCH (09:26)
[2018-08-11] MEDS: Aspirin 81 mg Enteric Coated Tablet PO SCH (09:26)
[2018-08-11] MEDS: Enoxaparin Sodium 40 MG/0.4 ML SYRINGE SC SCH (09:27)
[2018-08-11] MEDS: Furosemide 40 MG/4 ML VIAL SLOW IVP SCH (09:27)
[2018-08-11] MEDS: guaiFENesin ER 600 MG TAB PO SCH (09:27)
[2018-08-11] MEDS: Lisinopril 5 MG TAB PO SCH (09:27)
[2018-08-11] MEDS: Pantoprazole 40 MG GRANULES PACKET PO SCH (09:28)
--- NOTE | 2018-08-11 09:41 | PRG ---
DATE OF SERVICE: 08/11/2018 SUBJECTIVE: I reviewed the case with Yelitza, reviewed the record, interviewed and examined the patient. This patient is a 62-year-old male with a history of significant cardiomyopathy with an EF of 25-30 percent. He has a history of noncompliance with his medications. He is followed by Dr. Madera. He has significant chronic peripheral edema and presented with decompensated systolic failure. He has responded fairly well to diuresis. He is feeling quite well at the moment. OBJECTIVE: VITAL SIGNS: His temperature is 97.7, pulse 66, respirations 16, O2 saturations 98% on room air, BP 128/59. HEART: Regular without murmurs. LUNGS: Clear bilaterally. He still has persistent lower extremity edema, although it is clearly reduced as he has some crenation of the skin of the lower extremities with some chronic stasis dermatitis in couple of areas that are covered with the bandages for areas that were previously weeping. The patient understands the need to stay compliant with his medications. We discussed the fact that he needs to do daily weights. He does not have a scale. He is encouraged to go get one and continue to use the Lasix as a tool to continue manage his heart failure and then use the weight as his guide to do so. He will be on appropriate medications including IRAJ inhibitors, beta blockers, statins and aspirin. He says he will follow up with Dr. Madera. Job ID: [id number] MTDD
[2018-08-11 12:15] VITALS: BP 117/60; TEMP 97.4
--- NOTE | 2018-08-12 15:54 | EKG ---
Test Reason : CP Blood Pressure : / mmHG Vent. Rate : 082 BPM Atrial Rate : 082 BPM P-R Int : 186 ms QRS Dur : 120 ms QT Int : 382 ms P-R-T Axes : 062 -27 138 degrees QTc Int : 446 ms Normal sinus rhythm Left ventricular hypertrophy with QRS widening T wave abnormality, consider lateral ischemia Abnormal ECG Confirmed by GLENIS MITCHELL, OSITO ([id number]), movie editor WALKER [place] ([id number]) on 08/12/2018 3:53:56 PM Referred By: Confirmed By:OSITO GALVIN MD
== END 2018-08-11 16:02 | disposition home or self-care (01) ==
LOC: ERS 10:50 → ERHOLD 12:40 → 2SW 19:33
PROVIDERS: ADMIT Family Medicine; ATTEND Family Medicine
DX: R07.9 Chest pain, unspecified (principal); I11.0 Hypertensive heart disease with heart failure; I50.21 Acute systolic (congestive) heart failure; I25.2 Old myocardial infarction; E11.9 Type 2 diabetes mellitus without complications; E78.5 Hyperlipidemia, unspecified; I25.10 Atherosclerotic heart disease of native coronary artery without angina pectoris; I42.9 Cardiomyopathy, unspecified; E66.01 Morbid (severe) obesity due to excess calories; Z68.41 Body mass index [BMI] 40.0-44.9, adult; Z87.891 Personal history of nicotine dependence; Z79.82 Long term (current) use of aspirin; Z79.4 Long term (current) use of insulin; Z79.899 Other long term (current) drug therapy; Z95.1 Presence of aortocoronary bypass graft; Z91.14 Patient's other noncompliance with medication regimen
CPT/HCPCS: 36415; 36416; 71045; 71046; 80048; 80053; 82550; 83690; 83880; 84484; 85025; 93005; 93970; 96372; 96374; 96376; G0378; J1650; J1825; J1940; J2270

== ENCOUNTER 2018-10-25 15:28 | Inpatient (IN) | payer MEDICARE ==
[2018-10-25 16:23] LABS: #Basophils 0.1 thou/uL (0.0-0.2); #Eosinphils 0.3 thou/uL (0.0-0.7); #Lymphocytes 1.4 thou/uL (1.20-3.40); #Monocytes 0.8 thou/uL (0.11-0.59); #Neutrophils 5.5 thou/uL (1.40-6.50); %Eosinophils 4.2 % (0.0-10.0); %Lymphocytes 17.2 % (21.0-51.0); %Monocytes 9.3 % (0.0-10.0); %Neutrophils 68.4 % (42.0-75.0); Hemoglobin 12.3 g/dL (14.0-18.0); Mean Corpuscular HGB CONC 32.4 g/dL (32.0-36.0); Mean Corpuscular Hemoglobin 28.7 pg (27.0-31.0); Mean Corpuscular Volume 88.5 fL (78.0-98.0); Mean Platelet Volume 8.3 fL (7.4-10.4); Platelet Count 207 thou/uL (130-400); RBC Distribution Width 16.2 % (11.5-14.5); Red Blood Cell (RBC) Count 4.27 mill/uL (4.70-6.10); White Blood Cell (WBC) Count 8.1 thou/uL (4.8-10.8)
--- NOTE | 2018-10-25 16:28 | RAD ---
XR Chest 1 View Portable HISTORY: Shortness of breath COMPARISON: 08/09/2018 study FINDINGS: Heart size is enlarged with pulmonary vascular engorgement and increased parahilar markings consistent with pulmonary edema superimposed on chronic lung change. IMPRESSION: Cardiomegaly with moderate pulmonary edema change.
[2018-10-25 16:44] LABS: ALT (SGPT) 12 U/L (8-55); AST (SGOT) 15 U/L (5-34); Albumin 3.3 g/dL (3.4-4.8); Alkaline Phosphatase 96 U/L (40-150); Anion Gap 10 mmol/L (10-20); BUN (Urea Nitrogen) 13 mg/dL (8.4-25.7); Bilirubin, Total 0.6 mg/dL (0.2-1.2); Calc. Creatinine Clearance 0 mL/min (70-130); Calcium 9.2 mg/dL (7.8-10.44); Carbon Dioxide 25 mmol/L (23-31); Chloride 105 mmol/L (98-107); Estimated GFR-MDRD Greater than 90; Globulin 4.2 g/dL (2.4-3.5); Glucose 179 mg/dL (80-115); Potassium 4.2 mmol/L (3.5-5.1); Protein, Total 7.5 g/dL (5.8-8.1); Sodium 136 mmol/L (136-145)
[2018-10-25] MEDS ORDERED: Nitroglycerin 2% Ointment 1 INCH/1 GM Packet ONE (17:03)
[2018-10-25] MEDS ORDERED: Furosemide 40 MG/4 ML VIAL ONE (17:03)
[2018-10-25] MEDS ORDERED: Dextrose 50% Abboject 50 ML SYRINGE SLOW IVP PRN (19:33)
[2018-10-25] MEDS ORDERED: Acetaminophen 325 MG TAB PO PRN (19:33)
[2018-10-25] MEDS ORDERED: HumaLOG 300 UNITS/3 ML VIAL SC PRN ×2 (19:33)
[2018-10-25] MEDS ORDERED: Bisacodyl 10 MG SUPP PR PRN (19:33)
[2018-10-25] MEDS ORDERED: Dextrose 5% in Water 1,000 ML IV PRN (19:33)
[2018-10-25] MEDS ORDERED: Guaifenesin DM 100-10/5 ML UDCUP PO PRN (19:33)
--- NOTE | 2018-10-25 20:12 | HP ---
REASON FOR ADMISSION: Acute congestive heart failure exacerbation with systolic dysfunction. HISTORY OF PRESENT ILLNESS: The patient gives history of having lower extremity edema which has been progressively getting worse from last 4 days. He also developed severe shortness of breath and coughing spells. He could not lie down flat. He is also bringing up yellow sputum per patient. No fever. He had gone to see likely heart failure nurse practitioner this morning and was told to go to the emergency room as his fluid accumulation has increased with heart failure symptoms. There is no complaints of chest pain or palpitation. No complaints of fever at home. No urinary frequency or urgency. PAST MEDICAL AND SURGICAL HISTORY: History of CHF with ejection fraction of around 30% based on echo done last year, coronary artery disease with prior CABG, history of DC, history of cardiac arrest in [place] at least 15 years back or so. Hypertension, dyslipidemia, diabetes mellitus type 2, ventral hernia repair. CURRENT MEDICATIONS: Please note the patient does not recall most of his medications, although he states he is on Lasix 80 mg twice daily. Per prior records here, the patient is on; 1. Glipizide extended release 5 mg twice daily. 2. Metformin 850 mg twice daily. 3. Aspirin 81 mg daily. 4. Lipitor 40 mg p.o. at bedtime. 5. Coreg 3.125 mg p.o. twice daily. 6. Cholestyramine 4 g packet twice daily. 7. Pepcid 20 mg daily. 8. Lasix currently 80 mg twice daily. 9. Mucinex 600 mg twice daily. 10. Keppra 500 mg twice daily. 11. Lisinopril 5 mg twice daily. 12. Protonix 40 mg daily. ALLERGIES: NO KNOWN DRUG ALLERGIES. PERSONAL HISTORY: Quit smoking years ago. Does not abuse alcohol or drugs. The patient lives with his niece. FAMILY HISTORY: Mother at the age of 39 years. He does not know the exact cause of her . Father in his 90s from natural causes. The patient is single. CODE STATUS: Full. Power of trust and estates attorney is his niece, Ms. Sahara Noonan. REVIEW OF SYSTEMS: CONSTITUTIONAL: Negative for weight loss or gain, ability to conduct usual activities. SKIN: Negative for rash, itching. EYES: Negative for double vision, pain. ENT/MOUTH: Negative for nose bleeding, neck stiffness, pain, tenderness. CARDIOVASCULAR: Negative for palpitations, dyspnea on exertion, orthopnea. RESPIRATORY: Negative for shortness of breath, wheezing, cough, hemoptysis, fever or night sweats. GASTROINTESTINAL: Negative for poor appetite, abdominal pain, heartburn, nausea , vomiting, constipation, or diarrhea. GENITOURINARY: Negative for urgency, frequency, dysuria, nocturia. MUSCULOSKELETAL: Negative for pain, swelling. NEUROLOGIC/PSYCHIATRIC: Negative for anxiety, depression. ALLERGY/IMMUNOLOGIC: Negative for skin rash, bleeding tendency. PHYSICAL EXAMINATION: GENERAL: The patient is a 62-year-old male, who is currently not in any acute distress. VITAL SIGNS: Blood pressure 164/86, pulse 86 per minute, respiratory rate 18 per minute, temperature 97.7 degrees Fahrenheit, saturating 92% on room air. NECK: Supple. There is elevated JVD. HEENT: Eyes; extraocular muscles intact. Pupils reacting to light. Oral cavity, mucous membranes are moist. No exudates or congestion. CARDIOVASCULAR: S1 and S2 heard. Murmur plus. RESPIRATORY: Air entry 1+ bilateral. Scattered rales plus bilateral. ABDOMEN: Soft, bowel sounds heard. No tenderness, rigidity, or guarding. EXTREMITIES: There is massive edema in both lower extremities. No calf tenderness. VASCULAR: Peripheral pulses 1+ bilateral lower extremity. Pulses are barely palpable due to skin thickening and edema. CENTRAL NERVOUS SYSTEM: No gross focal deficits noted. The patient is alert, awake, and oriented well. PSYCHIATRIC: The patient's mood is euthymic. No hallucinations or delusions. LABORATORY DATA: EKG done shows normal sinus rhythm at 83 beats per minute. There is nonspecific ST-T wave changes. White count of 8, hemoglobin and hematocrit of 12 and 37, platelet count 207. MCV is 88 with 68% neutrophils. Electrolytes stable. BUN 13, creatinine 0.7, serum glucose 179. BNP is 583. Albumin is 3.3. Troponin I 1st set is 0.01. Chest x-ray done shows cardiomegaly with pulmonary vascular congestion. CLINICAL IMPRESSION AND PLAN: The patient will be admitted to telemetry for acute on chronic congestive heart failure exacerbation with systolic dysfunction and prior ejection fraction of 30%. We will start him on 40 mg IV Lasix q.12 hourly along with Zaroxolyn. We will also continue home dose of aspirin, Lipitor, Coreg at 3.125 mg twice daily and lisinopril 5 mg twice daily. We will continue his metformin and glipizide 5 mg twice daily not the extended release. We will also continue his home dose of Keppra for likely seizure disorder. PT evaluation will be requested. A current echo with 2D Doppler for LV function will also be requested. The patient's qm consultant Dr. Madera will be consulted. Job ID: [id number] MTDD
[2018-10-25] MEDS: Cholestyramine/Aspartame 4 gm Packet PO SCH (20:31)
[2018-10-25] MEDS: guaiFENesin ER 600 MG TAB PO SCH (20:31)
[2018-10-25] MEDS: Atorvastatin Calcium 40 MG TAB PO SCH (20:31)
[2018-10-25] MEDS: Lisinopril 5 MG TAB PO SCH (20:32)
[2018-10-25] MEDS: metFORMIN 850 MG TAB PO SCH (20:33)
[2018-10-25] MEDS: levETIRAcetam 500 MG TAB PO SCH (20:37)
[2018-10-25] MEDS ORDERED: Senokot S 8.6-50 MG TAB PO PRN (21:00)
[2018-10-25] MEDS ORDERED: Famotidine 20 MG TAB PO SCH (21:00)
[2018-10-25 22:04] VITALS: BMI 47.2
[2018-10-26 05:26] LABS: #Basophils 0.1 thou/uL (0.0-0.2); #Eosinphils 0.4 thou/uL (0.0-0.7); #Lymphocytes 1.3 thou/uL (1.20-3.40); #Monocytes 0.7 thou/uL (0.11-0.59); #Neutrophils 4.4 thou/uL (1.40-6.50); %Eosinophils 5.9 % (0.0-10.0); %Lymphocytes 18.3 % (21.0-51.0); %Monocytes 10.8 % (0.0-10.0); Hemoglobin 11.1 g/dL (14.0-18.0); Mean Corpuscular HGB CONC 32.5 g/dL (32.0-36.0); Mean Corpuscular Hemoglobin 28.6 pg (27.0-31.0); Mean Platelet Volume 8.5 fL (7.4-10.4); Platelet Count 184 thou/uL (130-400); RBC Distribution Width 16.1 % (11.5-14.5); Red Blood Cell (RBC) Count 3.87 mill/uL (4.70-6.10); White Blood Cell (WBC) Count 6.8 thou/uL (4.8-10.8)
[2018-10-26 05:27] LABS: Hemoglobin A1c 8.4 % (4.0-6.0)
[2018-10-26 05:57] LABS: Anion Gap 13 mmol/L (10-20); BUN (Urea Nitrogen) 14 mg/dL (8.4-25.7); Calc. Creatinine Clearance 180 mL/min (70-130); Calcium 8.8 mg/dL (7.8-10.44); Carbon Dioxide 23 mmol/L (23-31); Cardiac Risk 3.9 (Less than 4.5); Chloride 107 mmol/L (98-107); Cholesterol 98 mg/dl (< 200 Desired); Estimated GFR-MDRD Greater than 90; Glucose 162 mg/dL (80-115); HDL Cholesterol 25 mg/dL (>60 Neg Risk); LDL Cholesterol, Calculated 62 mg/dL; Potassium 4.2 mmol/L (3.5-5.1); Sodium 139 mmol/L (136-145); Triglycerides 55 mg/dL (Less than 150)
[2018-10-26] MEDS: Furosemide 40 MG/4 ML VIAL SLOW IVP SCH ×2 (06:05→14:42)
[2018-10-26] MEDS ORDERED: Sodium Chloride 0.65% Nasal 44 ML BOT EA NARE PRN (07:49)
[2018-10-26] MEDS ORDERED: Ondansetron ODT 4 MG TAB PO PRN (07:49)
[2018-10-26] MEDS ORDERED: Bisacodyl 10 MG SUPP PR PRN (07:49)
[2018-10-26] MEDS ORDERED: Cepastat Lozenges 1 LOZ PO PRN (07:49)
[2018-10-26] MEDS ORDERED: Artificial Tears 18 DROP/0.9 ML EA EYE PRN (07:49)
[2018-10-26] MEDS ORDERED: HYDROcodone/Acetaminophen 5/325 mg Tablet PO PRN (07:49)
[2018-10-26] MEDS ORDERED: Diabetic Tussin 200 MG/10 ML UDCUP PO PRN (07:49)
[2018-10-26] MEDS ORDERED: Zolpidem Tartrate 5 MG TAB PO PRN (07:49)
[2018-10-26] MEDS ORDERED: hydrALAZINE 20 MG/ML VIAL SLOW IVP PRN (07:49)
[2018-10-26] MEDS ORDERED: Loperamide HCl 2 MG CAP PO PRN (07:49)
[2018-10-26] MEDS ORDERED: Loratadine 10 MG TAB PO PRN (07:49)
[2018-10-26] MEDS ORDERED: Ondansetron PF 4 MG/2 ML Vial IVP PRN (07:49)
[2018-10-26] MEDS: Carvedilol 3.125 MG TAB PO SCH ×2 (07:56→16:58)
[2018-10-26] MEDS: metFORMIN 850 MG TAB PO SCH ×2 (07:56→20:28)
[2018-10-26] MEDS: levETIRAcetam 500 MG TAB PO SCH ×2 (07:56→20:28)
[2018-10-26] MEDS: Metolazone 5 MG TAB PO SCH (07:57)
[2018-10-26] MEDS: Aspirin Chewable 81 MG TAB PO SCH (07:57)
[2018-10-26] MEDS: Lisinopril 5 MG TAB PO SCH ×2 (07:57→20:28)
[2018-10-26] MEDS: guaiFENesin ER 600 MG TAB PO SCH ×2 (07:58→20:29)
[2018-10-26] MEDS: Enoxaparin Sodium 40 MG/0.4 ML SYRINGE SC SCH (08:47)
[2018-10-26] MEDS ORDERED: glipiZIDE 5 MG TAB PO SCH (09:00)
[2018-10-26] MEDS: Cholestyramine/Aspartame 4 gm Packet PO SCH ×2 (09:32→21:27)
--- NOTE | 2018-10-26 11:44 | PDOC.PN ---
- Subjective Encounter Start Date: 10/26/18 Encounter Start Time: 08:30 -: old records requested/rev pt is responding to diuresis, today he has less edema and less dyspnea Patient seen and examined. No new complaints. No overnight events - Objective Resuscitation Status - Order Detail: 10/25/18 19:30 Resuscitation Status Routine Resuscitation Status: FULL: Full Resuscitation MAR Reviewed: Yes Vital Signs & Weight: Vital Signs (12 hours) Temp Pulse Pulse Pulse Resp BP BP 10/26/18 10:19 58 L 71 99/51 L 128/60 10/26/18 08:00 10/26/18 07:57 69 10/26/18 07:49 98.3 F 69 20 10/26/18 07:13 10/26/18 07:12 62 16 10/26/18 03:48 98.4 F 64 19 10/26/18 02:06 69 16 BP Pulse Ox Pulse Ox Pulse Ox 10/26/18 10:19 95 93 L 10/26/18 08:00 96 10/26/18 07:57 10/26/18 07:49 117/61 96 10/26/18 07:13 92 L 10/26/18 07:12 92 L 10/26/18 03:48 121/61 94 L 10/26/18 02:06 94 L Weight Weight 292 lb 4.8 oz I&O: 10/25/18 10/26/18 10/27/18 06:59 06:59 06:59 Intake Total 254 Output Total 600 750 Balance -346 -750 Result Diagrams: 10/26/18 05:00 10/26/18 05:00 Additional Labs: Accuchecks 10/26/18 10/25/18 05:33 20:40 POC Glucose 160 H 195 H Radiology Reviewed by me: Yes EKG Reviewed by me: Yes Phys Exam - Physical Examination Constitutional: NAD HEENT: PERRLA, moist MMs, sclera anicteric Neck: supple, full ROM Respiratory: no wheezing, no rhonchi basal rales+ Cardiovascular: RRR, no significant murmur, no rub morbid obesity limiting exam Gastrointestinal: soft, non-tender, no distention, positive bowel sounds morbid obesity+ Musculoskeletal: pulses present, edema present Neurological: non-focal, normal sensation, moves all 4 limbs Lymphatic: no nodes Psychiatric: normal affect, A&O x 3 Skin: no rash, normal turgor Dx/Plan (1) Acute on chronic combined systolic and diastolic congestive heart failure Code(s): I50.43 - ACUTE ON CHRONIC COMBINED SYSTOLIC AND DIASTOLIC HRT FAIL Status: Acute Comment: (2) Anemia, normocytic normochromic Code(s): D64.9 - ANEMIA, UNSPECIFIED Status: Chronic (3) CAD (coronary artery disease) Code(s): I25.10 - ATHSCL HEART DISEASE OF [place] CORONARY ARTERY W/O ANG PCTRS Status: Chronic Qualifiers: Comment: (4) Cholelithiases Code(s): K80.20 - CALCULUS OF GALLBLADDER W/O CHOLECYSTITIS W/O OBSTRUCTION Status: Chronic (5) Diabetes type 2, controlled Code(s): E11.9 - TYPE 2 DIABETES MELLITUS WITHOUT COMPLICATIONS Status: Chronic (6) Dyslipidemia Code(s): E78.5 - HYPERLIPIDEMIA, UNSPECIFIED Status: Chronic (7) GERD (gastroesophageal reflux disease) Code(s): K21.9 - GASTRO-ESOPHAGEAL REFLUX DISEASE WITHOUT ESOPHAGITIS Status: Chronic (8) HTN (hypertension) Code(s): I10 - ESSENTIAL (PRIMARY) HYPERTENSION Status: Chronic Qualifiers: Comment: (9) Ischemic cardiomyopathy Code(s): I25.5 - ISCHEMIC CARDIOMYOPATHY Status: Chronic Comment: (10) Morbid obesity with BMI of 45.0-49.9, adult Code(s): E66.01 - MORBID (SEVERE) OBESITY DUE TO EXCESS CALORIES; Z68.42 - BODY MASS INDEX (BMI) 45.0-49.9, ADULT Status: Chronic (11) Non compliance w medication regimen Code(s): Z91.14 - PATIENT'S OTHER NONCOMPLIANCE WITH MEDICATION REGIMEN Status : Chronic (12) Seizure disorder Code(s): G40.909 - EPILEPSY, UNSP, NOT INTRACTABLE, WITHOUT STATUS EPILEPTICUS Status: Chronic - Plan cont current plan of care, PT/OT * continue IV lasix and po metolazone * monitor daily weight, I/O chart and labs * will repeat labs tomorrow * cardiac rehab * medication reviewed as below * symptomatic treatment. * home meds reconciled Review of Systems - Review of Systems Eyes: negative: Pain, Vision Change, Conjunctivae Inflammation, Eyelid Inflammation, Redness, Other ENT: negative: Ear Pain, Ear Discharge, Nose Pain, Nose Discharge, Nose Congestion, Mouth Pain, Mouth Swelling, Throat Pain, Throat Swelling, Other Respiratory: Shortness of Breath, SOB with Excertion. negative: Cough, Dry, Hemoptysis, Pleuritic Pain, Sputum, Wheezing Cardiovascular: edema. negative: chest pain, palpitations, orthopnea, paroxysmal nocturnal dyspnea, light headedness, other Gastrointestinal: negative: Nausea, Vomiting, Abdominal Pain, Diarrhea, Constipation, Melena, Hematochezia, Other Genitourinary: negative: Dysuria, Frequency, Incontinence, Hematuria, Retention , Other Musculoskeletal: negative: Neck Pain, Shoulder Pain, Arm Pain, Back Pain, Hand Pain, Leg Pain, Foot Pain, Other Skin: negative: Rash, Lesions, [place], Bruising, Other - Medications/Allergies Allergies/Adverse Reactions: Allergies Allergy/AdvReac Type Severity Reaction Status Date / Time No Known Drug Allergies Allergy Verified 10/26/18 01:44 Medications: Current Medications Acetaminophen (Tylenol) 650 mg PO Q4H PRN PRN Reason: Headache/Fever/Mild Pain (1-3) Hydrocodone Bitart/Acetaminophen ([place] 5/325) 1 tab PO Q4H PRN PRN Reason: Moderate Pain (4-6) Albuterol/Ipratropium (Duoneb) 3 ml NEB [id number] [facility] Last Admin: 10/26/18 07:12 Dose: 3 ml Artificial Tears (Tears Naturale) 2 drop EA EYE PRN PRN PRN Reason: Dry Eyes Aspirin (Aspirin Chewable) 81 mg PO DAILY [facility] Last Admin: 10/26/18 07:57 Dose: 81 mg Atorvastatin Calcium (Lipitor) 40 mg PO HS [facility] Last Admin: 10/25/18 20:31 Dose: 40 mg Bisacodyl (Dulcolax) 10 mg [place] DAILYPRN PRN PRN Reason: Constipation Bisacodyl (Dulcolax) 10 mg [place] DAILYPRN PRN PRN Reason: Constipation Carvedilol (Coreg) 3.125 mg PO BID-[facility] Last Admin: 10/26/18 07:56 Dose: 3.125 mg Cholestyramine Resin (Questran Light) 4 gm PO BID [facility] Last Admin: 10/26/18 09:32 Dose: 4 gm Dextrose/Water (Dextrose 50%) 25 gm SLOW IVP PRN PRN PRN Reason: Hypoglycemia Enoxaparin Sodium (Lovenox) 40 mg SC 0900 [facility] Last Admin: 10/26/18 08:47 Dose: 40 mg Furosemide (Lasix) 40 mg SLOW IVP 0600,1400 [facility] Last Admin: 10/26/18 06:05 Dose: 40 mg Glucagon (Glucagon) 1 mg IM PRN PRN PRN Reason: Hypoglycemia Guaifenesin (Mucinex) 600 mg PO Q12HR [facility] Last Admin: 10/26/18 07:58 Dose: 600 mg Guaifenesin (Robitussin Sf) 200 mg PO Q4H PRN PRN Reason: Cough Guaifenesin/Dextromethorphan (Robitussin Dm) 15 ml PO Q4H PRN PRN Reason: Cough Hydralazine HCl (Apresoline) 10 mg SLOW IVP Q4H PRN PRN Reason: SBP > 180 and HR < 70 Dextrose/Water (D5w) 1,000 mls @ 0 mls/hr IV .Q0M PRN PRN Reason: Hypoglycemia Insulin Human Lispro (Humalog) 0 units SC .MODERATE SLIDING SC PRN PRN Reason: Moderate Correctional Scale Insulin Human Lispro (Humalog) 0 units SC .BEDTIME SLIDING SC PRN PRN Reason: Bedtime Correctional Scale Levetiracetam (Keppra) 500 mg PO BID [facility] Last Admin: 10/26/18 07:56 Dose: 500 mg Lisinopril (Zestril) 5 mg PO BID [facility] Last Admin: 10/26/18 07:57 Dose: 5 mg Loperamide HCl (Imodium) 2 mg PO PRN PRN PRN Reason: Diarrhea/Loose Stools Loratadine (Claritin) 10 mg PO DAILYPRN PRN PRN Reason: Sinus Symptoms Metformin HCl (Glucophage) 850 mg PO BID [facility] Last Admin: 10/26/18 07:56 Dose: 850 mg Metolazone (Zaroxolyn) 5 mg PO 0830 [facility] Last Admin: 10/26/18 07:57 Dose: 5 mg Ondansetron HCl (Zofran Odt) 4 mg PO Q6H PRN PRN Reason: Nausea/Vomiting Ondansetron HCl (Zofran) 4 mg IVP Q6H PRN PRN Reason: Nausea/Vomiting Pantoprazole Sodium (Protonix) 40 mg PO DAILY [facility] Last Admin: 10/26/18 08:47 Dose: 40 mg Senna/Docusate Sodium (Senokot S) 2 tab PO BID PRN PRN Reason: Constipation Sodium Chloride (Flush - Normal Saline) 10 ml IVF PRN PRN PRN Reason: Saline Flush Last Admin: 10/26/18 06:05 Dose: 10 ml Sodium Chloride ([place] Nasal [place] 0.65%) 0 ml EA NARE QIDPRN PRN PRN Reason: Nasal Congestion Throat Lozenges (Cepastat Lozenges) 1 joaquin PO Q2H PRN PRN Reason: Sore Throat Zolpidem Tartrate (Ambien) 5 mg PO HSPRN PRN PRN Reason: Insomnia
[2018-10-26] MEDS: Atorvastatin Calcium 40 MG TAB PO SCH (20:28)
--- NOTE | 2018-10-27 00:35 | CON ---
DATE OF CONSULTATION: HISTORY: Thomas Fu is a 62-year-old male who followed since September of 2013. He is very noncompliant and has never come to the office except yesterday when he was having increasing shortness of breath. His O2 saturation was 84%. He apparently had bypass surgery approximately 14 years ago in [place]. He has severe ischemic cardiomyopathy with ejection fraction of 25% to 30% on echocardiograms. He has repeatedly refused ICD placement. He has had multiple admissions for CHF when he ran out of his medications. He states he has not ran out of his medications recently; however, when he went to the office, he told my nurse practitioner that he has not been taking his Lasix. PAST MEDICAL HISTORY: Severe ischemic cardiomyopathy, diabetes, hyperlipidemia, hypertension, morbid obesity, noncompliance, poor dentition, history of facial cellulitis. MEDICATIONS: 1. Aspirin 81 daily. 2. Atorvastatin 40 mg daily. 3. Carvedilol 3.125 t.i.d. 4. Furosemide 80 b.i.d. 5. Glipizide 5 mg b.i.d. 6. Lisinopril 5 mg b.i.d. 7. Metformin 850 b.i.d. 8. Protonix 40 daily. ALLERGIES: NONE. SOCIAL HISTORY: He stopped smoking 7 years ago. He does not drink. REVIEW OF SYSTEMS: 12-point review of systems is unremarkable. PHYSICAL EXAMINATION: VITAL SIGNS: Blood pressure 133/73, pulse of 71. HEENT: PERRL. NECK: Supple. There are bibasilar rales. CARDIOVASCULAR EXAMINATION: S1, S2 were normal without any S3, S4, or murmurs. ABDOMEN: Obese. Normal bowel sounds. EXTREMITIES: Revealed 4+ pretibial edema to the mid thigh. NEUROLOGIC: Grossly intact. SKIN: Warm and dry. LABORATORY DATA: EKG revealed normal sinus rhythm with left axis deviation, nonspecific T-wave changes. Hemoglobin 11.1, hematocrit 34.1, white count 6800 , and platelets 184,000. Sodium 139, potassium 4.2, chloride 107, carbon dioxide 23, BUN 14, creatinine 0.80, hemoglobin A1c 8.4. Cholesterol 98, triglycerides 55, HDL 25, LDL 62. TSH is normal. Troponin I is normal x1. BNP 583.4. IMPRESSION: 1. Ischemic cardiomyopathy. 2. Status post coronary artery bypass graft. 3. Patient declining ICD on multiple admissions. 4. Noncompliance. He told my nurse practitioner that he had not taken Lasix for one week, although to me he states that he has been taking it. 5. Hypertension. 6. Hyperlipidemia, under good control. 7. Diabetes. 8. Morbid obesity. 9. Former smoker. 10. History of facial cellulitis. PLAN: The patient being treated with intravenous furosemide and has had good diuresis. Again, he declines ICD. Job ID: [id number] MTDD
[2018-10-27] MEDS: Furosemide 40 MG/4 ML VIAL SLOW IVP SCH ×2 (05:30→14:50)
[2018-10-27 06:02] LABS: #Eosinphils 0.3 thou/uL (0.0-0.7); #Lymphocytes 1.4 thou/uL (1.20-3.40); #Monocytes 0.7 thou/uL (0.11-0.59); #Neutrophils 4.3 thou/uL (1.40-6.50); %Basophils 0.7 % (0.0-1.0); %Lymphocytes 20.3 % (21.0-51.0); %Monocytes 10.6 % (0.0-10.0); %Neutrophils 64.5 % (42.0-75.0); Hemoglobin 11.4 g/dL (14.0-18.0); Mean Corpuscular HGB CONC 32.1 g/dL (32.0-36.0); Mean Corpuscular Hemoglobin 28.4 pg (27.0-31.0); Mean Corpuscular Volume 88.5 fL (78.0-98.0); Mean Platelet Volume 8.4 fL (7.4-10.4); Platelet Count 183 thou/uL (130-400); RBC Distribution Width 16.2 % (11.5-14.5); Red Blood Cell (RBC) Count 3.99 mill/uL (4.70-6.10); White Blood Cell (WBC) Count 6.7 thou/uL (4.8-10.8)
[2018-10-27 06:23] LABS: Anion Gap 11 mmol/L (10-20); BUN (Urea Nitrogen) 19 mg/dL (8.4-25.7); Calc. Creatinine Clearance 146 mL/min (70-130); Calcium 9.1 mg/dL (7.8-10.44); Carbon Dioxide 25 mmol/L (23-31); Chloride 103 mmol/L (98-107); Estimated GFR-MDRD 77; Glucose 153 mg/dL (80-115); Magnesium 1.4 mg/dL (1.6-2.6); Sodium 135 mmol/L (136-145); Uric Acid 7.2 mg/dL (3.5-7.2)
[2018-10-27] MEDS ORDERED: Magnesium Sulfate 3 GM in Sodium Chloride 0.9% 100 ML IVPB SCH (07:00)
[2018-10-27] MEDS: Aspirin Chewable 81 MG TAB PO SCH (08:36)
[2018-10-27] MEDS: Enoxaparin Sodium 40 MG/0.4 ML SYRINGE SC SCH (08:36)
[2018-10-27] MEDS: Metolazone 5 MG TAB PO SCH (08:36)
[2018-10-27] MEDS: Cholestyramine/Aspartame 4 gm Packet PO SCH ×2 (08:36→20:50)
[2018-10-27] MEDS: Carvedilol 3.125 MG TAB PO SCH ×2 (08:36→16:16)
[2018-10-27] MEDS: guaiFENesin ER 600 MG TAB PO SCH ×2 (08:37→20:16)
[2018-10-27] MEDS: Lisinopril 5 MG TAB PO SCH ×2 (08:37→20:16)
[2018-10-27] MEDS: levETIRAcetam 500 MG TAB PO SCH ×2 (08:37→20:16)
[2018-10-27] MEDS: metFORMIN 850 MG TAB PO SCH ×2 (08:38→20:16)
--- NOTE | 2018-10-27 10:59 | PDOC.PN ---
- Subjective Encounter Start Date: 10/27/18 Encounter Start Time: 09:15 Patient seen and examined. No new complaints. No overnight events - Objective Resuscitation Status - Order Detail: 10/25/18 19:30 Resuscitation Status Routine Resuscitation Status: FULL: Full Resuscitation MAR Reviewed: Yes Vital Signs & Weight: Vital Signs (12 hours) Temp Pulse Pulse Pulse Resp BP BP 10/27/18 10:01 72 58 L 162/72 H 132/68 10/27/18 07:24 97.5 F L 63 20 10/27/18 07:16 76 16 10/27/18 04:00 97.8 F 63 22 H 10/27/18 00:18 67 16 BP Pulse Ox Pulse Ox Pulse Ox 10/27/18 10:01 89 L 94 L 10/27/18 07:24 140/68 100 10/27/18 07:16 93 L 10/27/18 04:00 125/66 93 L 10/27/18 00:18 90 L Weight Weight 293 lb 8 oz I&O: 10/26/18 10/27/18 10/28/18 06:59 06:59 06:59 Intake Total 254 1120 Output Total 600 3250 Balance -346 -2130 Result Diagrams: 10/27/18 05:44 10/27/18 05:44 Additional Labs: Accuchecks 10/27/18 10/26/18 10/26/18 05:06 20:25 17:28 POC Glucose 147 H 168 H 153 H EKG Reviewed by me: Yes Phys Exam - Physical Examination Constitutional: NAD HEENT: PERRLA, moist MMs, sclera anicteric Neck: no JVD, supple Respiratory: no wheezing, no rhonchi reduced air entry at base Cardiovascular: RRR, no significant murmur, no rub Gastrointestinal: soft, non-tender, no distention, positive bowel sounds obesity+ Musculoskeletal: pulses present, edema present Neurological: non-focal, normal sensation, moves all 4 limbs Lymphatic: no nodes Psychiatric: normal affect, A&O x 3 Skin: no rash, normal turgor Dx/Plan (1) Acute on chronic combined systolic and diastolic congestive heart failure Code(s): I50.43 - ACUTE ON CHRONIC COMBINED SYSTOLIC AND DIASTOLIC HRT FAIL Status: Acute Comment: (2) Anemia, normocytic normochromic Code(s): D64.9 - ANEMIA, UNSPECIFIED Status: Chronic (3) CAD (coronary artery disease) Code(s): I25.10 - ATHSCL HEART DISEASE OF [place] CORONARY ARTERY W/O ANG PCTRS Status: Chronic Qualifiers: Comment: (4) Cholelithiases Code(s): K80.20 - CALCULUS OF GALLBLADDER W/O CHOLECYSTITIS W/O OBSTRUCTION Status: Chronic (5) Diabetes type 2, controlled Code(s): E11.9 - TYPE 2 DIABETES MELLITUS WITHOUT COMPLICATIONS Status: Chronic (6) Dyslipidemia Code(s): E78.5 - HYPERLIPIDEMIA, UNSPECIFIED Status: Chronic (7) GERD (gastroesophageal reflux disease) Code(s): K21.9 - GASTRO-ESOPHAGEAL REFLUX DISEASE WITHOUT ESOPHAGITIS Status: Chronic (8) HTN (hypertension) Code(s): I10 - ESSENTIAL (PRIMARY) HYPERTENSION Status: Chronic Qualifiers: Comment: (9) Ischemic cardiomyopathy Code(s): I25.5 - ISCHEMIC CARDIOMYOPATHY Status: Chronic Comment: (10) Morbid obesity with BMI of 45.0-49.9, adult Code(s): E66.01 - MORBID (SEVERE) OBESITY DUE TO EXCESS CALORIES; Z68.42 - BODY MASS INDEX (BMI) 45.0-49.9, ADULT Status: Chronic (11) Non compliance w medication regimen Code(s): Z91.14 - PATIENT'S OTHER NONCOMPLIANCE WITH MEDICATION REGIMEN Status : Chronic (12) Seizure disorder Code(s): G40.909 - EPILEPSY, UNSP, NOT INTRACTABLE, WITHOUT STATUS EPILEPTICUS Status: Chronic - Plan cont current plan of care * continue IV lasix * medication reviewed as below * symptomatic treatment. * should be ready for discharge in 24-48 hours Review of Systems - Review of Systems ENT: negative: Ear Pain, Ear Discharge, Nose Pain, Nose Discharge, Nose Congestion, Mouth Pain, Mouth Swelling, Throat Pain, Throat Swelling, Other Respiratory: negative: Cough, Dry, Shortness of Breath, Hemoptysis, SOB with Excertion, Pleuritic Pain, Sputum, Wheezing Cardiovascular: edema. negative: chest pain, palpitations, orthopnea, paroxysmal nocturnal dyspnea, light headedness, other Gastrointestinal: negative: Nausea, Vomiting, Abdominal Pain, Diarrhea, Constipation, Melena, Hematochezia, Other Genitourinary: negative: Dysuria, Frequency, Incontinence, Hematuria, Retention , Other Musculoskeletal: negative: Neck Pain, Shoulder Pain, Arm Pain, Back Pain, Hand Pain, Leg Pain, Foot Pain, Other - Medications/Allergies Allergies/Adverse Reactions: Allergies Allergy/AdvReac Type Severity Reaction Status Date / Time No Known Drug Allergies Allergy Verified 10/26/18 01:44 Medications: Current Medications Acetaminophen (Tylenol) 650 mg PO Q4H PRN PRN Reason: Headache/Fever/Mild Pain (1-3) Hydrocodone Bitart/Acetaminophen ([place] 5/325) 1 tab PO Q4H PRN PRN Reason: Moderate Pain (4-6) Albuterol/Ipratropium (Duoneb) 3 ml NEB [id number] [facility] Last Admin: 10/27/18 07:16 Dose: 3 ml Artificial Tears (Tears Naturale) 2 drop EA EYE PRN PRN PRN Reason: Dry Eyes Aspirin (Aspirin Chewable) 81 mg PO DAILY [facility] Last Admin: 10/27/18 08:36 Dose: 81 mg Atorvastatin Calcium (Lipitor) 40 mg PO HS [facility] Last Admin: 10/26/18 20:28 Dose: 40 mg Bisacodyl (Dulcolax) 10 mg [place] DAILYPRN PRN PRN Reason: Constipation Bisacodyl (Dulcolax) 10 mg [place] DAILYPRN PRN PRN Reason: Constipation Carvedilol (Coreg) 3.125 mg PO BID-WM [facility] Last Admin: 10/27/18 08:36 Dose: 3.125 mg Cholestyramine Resin (Questran Light) 4 gm PO BID [facility] Last Admin: 10/27/18 08:36 Dose: 4 gm Dextrose/Water (Dextrose 50%) 25 gm SLOW IVP PRN PRN PRN Reason: Hypoglycemia Enoxaparin Sodium (Lovenox) 40 mg SC 0900 [facility] Last Admin: 10/27/18 08:36 Dose: 40 mg Furosemide (Lasix) 40 mg SLOW IVP 0600,1400 [facility] Last Admin: 10/27/18 05:30 Dose: 40 mg Glucagon (Glucagon) 1 mg IM PRN PRN PRN Reason: Hypoglycemia Guaifenesin (Mucinex) 600 mg PO Q12HR [facility] Last Admin: 10/27/18 08:37 Dose: 600 mg Guaifenesin (Robitussin Sf) 200 mg PO Q4H PRN PRN Reason: Cough Guaifenesin/Dextromethorphan (Robitussin Dm) 15 ml PO Q4H PRN PRN Reason: Cough Hydralazine HCl (Apresoline) 10 mg SLOW IVP Q4H PRN PRN Reason: SBP > 180 and HR < 70 Dextrose/Water (D5w) 1,000 mls @ 0 mls/hr IV .Q0M PRN PRN Reason: Hypoglycemia Insulin Human Lispro (Humalog) 0 units SC .MODERATE SLIDING SC PRN PRN Reason: Moderate Correctional Scale Insulin Human Lispro (Humalog) 0 units SC .BEDTIME SLIDING SC PRN PRN Reason: Bedtime Correctional Scale Levetiracetam (Keppra) 500 mg PO BID [facility] Last Admin: 10/27/18 08:37 Dose: 500 mg Lisinopril (Zestril) 5 mg PO BID [facility] Last Admin: 10/27/18 08:37 Dose: 5 mg Loperamide HCl (Imodium) 2 mg PO PRN PRN PRN Reason: Diarrhea/Loose Stools Loratadine (Claritin) 10 mg PO DAILYPRN PRN PRN Reason: Sinus Symptoms Metformin HCl (Glucophage) 850 mg PO BID [facility] Last Admin: 10/27/18 08:38 Dose: 850 mg Metolazone (Zaroxolyn) 5 mg PO 0830 [facility] Last Admin: 10/27/18 08:36 Dose: 5 mg Ondansetron HCl (Zofran Odt) 4 mg PO Q6H PRN PRN Reason: Nausea/Vomiting Ondansetron HCl (Zofran) 4 mg IVP Q6H PRN PRN Reason: Nausea/Vomiting Pantoprazole Sodium (Protonix) 40 mg PO DAILY [facility] Last Admin: 10/27/18 08:38 Dose: 40 mg Senna/Docusate Sodium (Senokot S) 2 tab PO BID PRN PRN Reason: Constipation Sodium Chloride (Flush - Normal Saline) 10 ml IVF PRN PRN PRN Reason: Saline Flush Last Admin: 10/26/18 06:05 Dose: 10 ml Sodium Chloride ([place] Nasal [place] 0.65%) 0 ml EA NARE QIDPRN PRN PRN Reason: Nasal Congestion Throat Lozenges (Cepastat Lozenges) 1 joaquin PO Q2H PRN PRN Reason: Sore Throat Zolpidem Tartrate (Ambien) 5 mg PO HSPRN PRN PRN Reason: Insomnia
[2018-10-27] MEDS: Atorvastatin Calcium 40 MG TAB PO SCH (20:16)
[2018-10-28] MEDS: Furosemide 40 MG/4 ML VIAL SLOW IVP SCH ×2 (06:01→13:37)
[2018-10-28 06:48] LABS: Anion Gap 15 mmol/L (10-20); BUN (Urea Nitrogen) 25 mg/dL (8.4-25.7); Calc. Creatinine Clearance 164 mL/min (70-130); Calcium 9.5 mg/dL (7.8-10.44); Carbon Dioxide 19 mmol/L (23-31); Chloride 105 mmol/L (98-107); Estimated GFR-MDRD Greater than 90; Glucose 100 mg/dL (80-115); Magnesium 1.8 mg/dL (1.6-2.6); Potassium 4.5 mmol/L (3.5-5.1); Sodium 134 mmol/L (136-145)
[2018-10-28] MEDS: Cholestyramine/Aspartame 4 gm Packet PO SCH ×2 (08:32→21:33)
[2018-10-28] MEDS: guaiFENesin ER 600 MG TAB PO SCH ×2 (08:32→20:32)
[2018-10-28] MEDS: Aspirin Chewable 81 MG TAB PO SCH (08:32)
[2018-10-28] MEDS: levETIRAcetam 500 MG TAB PO SCH ×2 (08:32→20:31)
[2018-10-28] MEDS: Metolazone 5 MG TAB PO SCH (08:32)
[2018-10-28] MEDS: Lisinopril 5 MG TAB PO SCH ×2 (08:32→20:32)
[2018-10-28] MEDS: metFORMIN 850 MG TAB PO SCH ×2 (08:32→20:31)
[2018-10-28] MEDS: Enoxaparin Sodium 40 MG/0.4 ML SYRINGE SC SCH (08:32)
[2018-10-28] MEDS: Carvedilol 3.125 MG TAB PO SCH ×2 (08:32→16:36)
--- NOTE | 2018-10-28 11:00 | PDOC.PN ---
- Subjective Encounter Start Date: 10/28/18 Encounter Start Time: 09:00 Patient seen and examined. No new complaints. No overnight events - Objective Resuscitation Status - Order Detail: 10/25/18 19:30 Resuscitation Status Routine Resuscitation Status: FULL: Full Resuscitation MAR Reviewed: Yes Vital Signs & Weight: Vital Signs (12 hours) Temp Pulse Resp BP Pulse Ox 10/28/18 08:32 63 10/28/18 07:42 97.7 F 63 18 136/68 95 10/28/18 07:38 86 16 92 L 10/28/18 03:37 97.5 F L 63 17 123/63 93 L 10/28/18 00:12 71 18 90 L Weight Weight 283 lb I&O: 10/27/18 10/28/18 10/29/18 06:59 06:59 06:59 Intake Total 1120 1400 Output Total 3250 2500 Balance -2130 -1100 Result Diagrams: 10/27/18 05:44 10/28/18 05:13 Additional Labs: Accuchecks 10/28/18 10/28/18 10/27/18 10:39 05:42 20:53 POC Glucose 148 H 117 H 127 H 10/27/18 10/27/18 16:38 10:47 POC Glucose 108 193 H EKG Reviewed by me: Yes Phys Exam - Physical Examination Constitutional: NAD HEENT: PERRLA, moist MMs, sclera anicteric Neck: no JVD, supple Respiratory: no wheezing, no rales, no rhonchi Cardiovascular: RRR, no significant murmur, no rub Gastrointestinal: soft, non-tender, no distention, positive bowel sounds obesity+ Musculoskeletal: edema present Neurological: non-focal, normal sensation, moves all 4 limbs Lymphatic: no nodes Psychiatric: normal affect, A&O x 3 Skin: no rash, normal turgor Dx/Plan (1) Acute on chronic combined systolic and diastolic congestive heart failure Code(s): I50.43 - ACUTE ON CHRONIC COMBINED SYSTOLIC AND DIASTOLIC HRT FAIL Status: Acute Comment: (2) Anemia, normocytic normochromic Code(s): D64.9 - ANEMIA, UNSPECIFIED Status: Chronic (3) CAD (coronary artery disease) Code(s): I25.10 - ATHSCL HEART DISEASE OF [place] CORONARY ARTERY W/O ANG PCTRS Status: Chronic Qualifiers: Comment: (4) Cholelithiases Code(s): K80.20 - CALCULUS OF GALLBLADDER W/O CHOLECYSTITIS W/O OBSTRUCTION Status: Chronic (5) Diabetes type 2, controlled Code(s): E11.9 - TYPE 2 DIABETES MELLITUS WITHOUT COMPLICATIONS Status: Chronic (6) Dyslipidemia Code(s): E78.5 - HYPERLIPIDEMIA, UNSPECIFIED Status: Chronic (7) GERD (gastroesophageal reflux disease) Code(s): K21.9 - GASTRO-ESOPHAGEAL REFLUX DISEASE WITHOUT ESOPHAGITIS Status: Chronic (8) HTN (hypertension) Code(s): I10 - ESSENTIAL (PRIMARY) HYPERTENSION Status: Chronic Qualifiers: Comment: (9) Ischemic cardiomyopathy Code(s): I25.5 - ISCHEMIC CARDIOMYOPATHY Status: Chronic Comment: (10) Morbid obesity with BMI of 45.0-49.9, adult Code(s): E66.01 - MORBID (SEVERE) OBESITY DUE TO EXCESS CALORIES; Z68.42 - BODY MASS INDEX (BMI) 45.0-49.9, ADULT Status: Chronic (11) Non compliance w medication regimen Code(s): Z91.14 - PATIENT'S OTHER NONCOMPLIANCE WITH MEDICATION REGIMEN Status : Chronic (12) Seizure disorder Code(s): G40.909 - EPILEPSY, UNSP, NOT INTRACTABLE, WITHOUT STATUS EPILEPTICUS Status: Chronic - Plan cont current plan of care * continue IV lasix for diuresis * medication reviewed as below * symptomatic treatment * pt has refused AICD. Review of Systems - Review of Systems ENT: negative: Ear Pain, Ear Discharge, Nose Pain, Nose Discharge, Nose Congestion, Mouth Pain, Mouth Swelling, Throat Pain, Throat Swelling, Other Respiratory: negative: Cough, Dry, Shortness of Breath, Hemoptysis, SOB with Excertion, Pleuritic Pain, Sputum, Wheezing Cardiovascular: edema. negative: chest pain, palpitations, orthopnea, paroxysmal nocturnal dyspnea, light headedness, other Gastrointestinal: negative: Nausea, Vomiting, Abdominal Pain, Diarrhea, Constipation, Melena, Hematochezia, Other Genitourinary: negative: Dysuria, Frequency, Incontinence, Hematuria, Retention , Other Musculoskeletal: negative: Neck Pain, Shoulder Pain, Arm Pain, Back Pain, Hand Pain, Leg Pain, Foot Pain, Other - Medications/Allergies Allergies/Adverse Reactions: Allergies Allergy/AdvReac Type Severity Reaction Status Date / Time No Known Drug Allergies Allergy Verified 10/26/18 01:44 Medications: Current Medications Acetaminophen (Tylenol) 650 mg PO Q4H PRN PRN Reason: Headache/Fever/Mild Pain (1-3) Hydrocodone Bitart/Acetaminophen ([place] 5/325) 1 tab PO Q4H PRN PRN Reason: Moderate Pain (4-6) Albuterol/Ipratropium (Duoneb) 3 ml NEB [id number] [facility] Last Admin: 10/28/18 07:38 Dose: 3 ml Artificial Tears (Tears Naturale) 2 drop EA EYE PRN PRN PRN Reason: Dry Eyes Aspirin (Aspirin Chewable) [address] [facility] Last Admin: 10/28/18 08:32 Dose: 81 mg Atorvastatin Calcium (Lipitor) [address] [facility] Last Admin: 10/27/18 20:16 Dose: 40 mg Bisacodyl (Dulcolax) 10 mg [place] DAILYPRN PRN PRN Reason: Constipation Bisacodyl (Dulcolax) 10 mg DC DAILYPRN PRN PRN Reason: Constipation Carvedilol (Coreg) 3.125 mg PO BID-[facility] Last Admin: 10/28/18 08:32 Dose: 3.125 mg Cholestyramine Resin (Questran Light) [address] [facility] Last Admin: 10/28/18 08:32 Dose: 4 gm Dextrose/Water (Dextrose 50%) 25 gm SLOW IVP PRN PRN PRN Reason: Hypoglycemia Enoxaparin Sodium (Lovenox) [address] [facility] Last Admin: 10/28/18 08:32 Dose: 40 mg Furosemide (Lasix) 40 mg SLOW IVP 0600,1400 [facility] Last Admin: 10/28/18 06:01 Dose: 40 mg Glucagon (Glucagon) 1 mg IM PRN PRN PRN Reason: Hypoglycemia Guaifenesin (Mucinex) [address] [facility] Last Admin: 10/28/18 08:32 Dose: 600 mg Guaifenesin (Robitussin Sf) 200 mg PO Q4H PRN PRN Reason: Cough Guaifenesin/Dextromethorphan (Robitussin Dm) 15 ml PO Q4H PRN PRN Reason: Cough Hydralazine HCl (Apresoline) 10 mg SLOW IVP Q4H PRN PRN Reason: SBP > 180 and HR < 70 Dextrose/Water (D5w) 1,000 mls @ 0 mls/hr IV .Q0M PRN PRN Reason: Hypoglycemia Insulin Human Lispro (Humalog) 0 units SC .MODERATE SLIDING SC PRN PRN Reason: Moderate Correctional Scale Last Admin: 10/27/18 12:38 Dose: 2 unit Insulin Human Lispro (Humalog) 0 units SC .BEDTIME SLIDING SC PRN PRN Reason: Bedtime Correctional Scale Levetiracetam (Keppra) [address] [facility] Last Admin: 10/28/18 08:32 Dose: 500 mg Lisinopril (Zestril) [address] [facility] Last Admin: 10/28/18 08:32 Dose: 5 mg Loperamide HCl (Imodium) 2 mg PO PRN PRN PRN Reason: Diarrhea/Loose Stools Loratadine (Claritin) 10 mg PO DAILYPRN PRN PRN Reason: Sinus Symptoms Metformin HCl (Glucophage) [address] [facility] Last Admin: 10/28/18 08:32 Dose: 850 mg Metolazone (Zaroxolyn) [address] [facility] Last Admin: 10/28/18 08:32 Dose: 5 mg Ondansetron HCl (Zofran Odt) 4 mg PO Q6H PRN PRN Reason: Nausea/Vomiting Ondansetron HCl (Zofran) 4 mg IVP Q6H PRN PRN Reason: Nausea/Vomiting Pantoprazole Sodium (Protonix) [address] [facility] Last Admin: 10/28/18 08:32 Dose: 40 mg Senna/Docusate Sodium (Senokot S) 2 tab PO BID PRN PRN Reason: Constipation Sodium Chloride (Flush - Normal Saline) 10 ml IVF PRN PRN PRN Reason: Saline Flush Last Admin: 10/26/18 06:05 Dose: 10 ml Sodium Chloride ([place] Nasal [place] 0.65%) 0 ml EA NARE QIDPRN PRN PRN Reason: Nasal Congestion Throat Lozenges (Cepastat Lozenges) 1 joaquin PO Q2H PRN PRN Reason: Sore Throat Zolpidem Tartrate (Ambien) 5 mg PO HSPRN PRN PRN Reason: Insomnia
--- NOTE | 2018-10-28 15:14 | EKG ---
Test Reason : Blood Pressure : / mmHG Vent. Rate : 083 BPM Atrial Rate : 083 BPM P-R Int : 176 ms QRS Dur : 112 ms QT Int : 392 ms P-R-T Axes : 038 -31 142 degrees QTc Int : 460 ms Sinus rhythm with Premature atrial complexes Left axis deviation Minimal voltage criteria for LVH, may be normal variant T wave abnormality, consider lateral ischemia Prolonged QT Abnormal ECG Confirmed by JARAD RAMOS ([id number]), magazine editor ALBIN HOLLEY ([id number]) on 10/28/2018 3:13:30 PM Referred By: Confirmed By:JARAD RAMOS
--- NOTE | 2018-10-28 16:41 | PDOC.CTH ---
Cardiology Progress Note - Subjective The pt seen and examined. No overnight events. No cardiac complaints. - Objective Vital Signs Temp Pulse Pulse Pulse Resp BP BP 10/28/18 16:34 97.6 F 62 18 10/28/18 12:51 73 16 10/28/18 11:41 97.9 F 72 18 10/28/18 11:00 80 68 142/65 H 134/65 10/28/18 08:32 63 10/28/18 07:45 10/28/18 07:42 97.7 F 63 18 10/28/18 07:38 86 16 BP BP Pulse Ox Pulse Ox Pulse Ox 10/28/18 16:34 138/64 95 10/28/18 12:51 92 L 10/28/18 11:41 132/68 93 L 10/28/18 11:00 94 L 95 10/28/18 08:32 10/28/18 07:45 95 10/28/18 07:42 136/68 95 10/28/18 07:38 92 L Weight 283 lb 10/27/18 10/28/18 10/29/18 06:59 06:59 06:59 Intake Total 1120 1400 Output Total 3250 2500 Balance -2130 -1100 - Physical Examination General/Neuro: alert & oriented x3 Neck: no JVD present Lungs: other: (diminished at bases) Heart: RRR Abdomen: soft Extremities: other: (1-2+ ptting BLE edema) - Telemetry Telemetry Rhythm: SR - Labs Result Diagrams: 10/27/18 05:44 10/28/18 05:13 Troponin/CKMB Troponin I 0.019 ng/mL (< 0.028) 10/25/18 16:15 - Assessment/Plan 1. Acute on chronic combined HF with EF 25-30% in 04/2018 - stable with Lasix 40mg IV BID with Metolazone; On Coreg, Lisinopril. On 1500ml/day fluid restrictions. 2. Ischemic CMY with EF 20-25% - The pt cont. declining AICD placement 3. CAD with hx of CABG in 2004 - stable; on bblocker, IRAJ, ASA, and Statin 4. HTN - stable 5. HLD - on statin 6. DM type 2 - managed by PCP 7. [place] - unchanged 8. Seizure - On Keppra 9. Non compliance w medication regimen MAR reviewed Pt. seen and eval. by me. I agree with the A/P by the INTERIOR DESIGN ASSISTANT. Chest clear. RRR. mild edema. Review of Systems - Review of Systems Constitutional: reports: no symptoms reported EENTM: reports: no symptoms reported Respiratory: reports: no symptoms reported Cardiac (ROS): reports: no symptoms reported ABD/GI: reports: no symptoms reported : reports: no symptoms reported
[2018-10-28] MEDS: Atorvastatin Calcium 40 MG TAB PO SCH (20:32)
[2018-10-29] MEDS: Furosemide 40 MG/4 ML VIAL SLOW IVP SCH ×2 (05:37→14:40)
[2018-10-29] MEDS: Lisinopril 5 MG TAB PO SCH ×2 (08:30→21:26)
[2018-10-29] MEDS: Cholestyramine/Aspartame 4 gm Packet PO SCH ×2 (08:30→21:25)
[2018-10-29] MEDS: levETIRAcetam 500 MG TAB PO SCH ×2 (08:31→21:26)
[2018-10-29] MEDS: guaiFENesin ER 600 MG TAB PO SCH ×2 (08:31→21:26)
[2018-10-29] MEDS: metFORMIN 850 MG TAB PO SCH ×2 (08:31→21:25)
[2018-10-29] MEDS: Aspirin Chewable 81 MG TAB PO SCH (08:31)
[2018-10-29] MEDS: Metolazone 5 MG TAB PO SCH (08:31)
[2018-10-29] MEDS: Enoxaparin Sodium 40 MG/0.4 ML SYRINGE SC SCH (08:31)
[2018-10-29] MEDS: Carvedilol 3.125 MG TAB PO SCH ×2 (08:31→16:52)
--- NOTE | 2018-10-29 12:05 | PDOC.PN ---
- Subjective Encounter Start Date: 10/29/18 Encounter Start Time: 08:30 Patient seen and examined. No new complaints. No overnight events - Objective Resuscitation Status - Order Detail: 10/25/18 19:30 Resuscitation Status Routine Resuscitation Status: FULL: Full Resuscitation MAR Reviewed: Yes Vital Signs & Weight: Vital Signs (12 hours) Temp Pulse Resp BP BP Pulse Ox 10/29/18 08:30 74 10/29/18 07:55 74 16 10/29/18 07:48 97.7 F 65 18 139/68 96 10/29/18 07:20 94 L 10/29/18 04:00 97.6 F 63 18 135/72 92 L Weight Weight 277 lb 8 oz I&O: 10/28/18 10/29/18 10/30/18 06:59 06:59 06:59 Intake Total 1400 1360 Output Total 2500 2440 Balance -1100 -1080 Result Diagrams: 10/27/18 05:44 10/28/18 05:13 Additional Labs: Accuchecks 10/29/18 10/29/18 10/28/18 10:28 06:02 20:28 POC Glucose 148 H 117 H 159 H 10/28/18 16:40 POC Glucose 117 H EKG Reviewed by me: Yes (nsr) Phys Exam - Physical Examination Constitutional: NAD HEENT: PERRLA, moist MMs, sclera anicteric Neck: no JVD, supple Respiratory: no wheezing, no rales, no rhonchi Cardiovascular: RRR, no significant murmur, no rub Gastrointestinal: soft, non-tender, no distention, positive bowel sounds Musculoskeletal: pulses present, edema present Neurological: non-focal, normal sensation, moves all 4 limbs Lymphatic: no nodes Psychiatric: normal affect, A&O x 3 Skin: no rash, normal turgor Dx/Plan (1) Acute on chronic combined systolic and diastolic congestive heart failure Code(s): I50.43 - ACUTE ON CHRONIC COMBINED SYSTOLIC AND DIASTOLIC HRT FAIL Status: Acute Comment: (2) Anemia, normocytic normochromic Code(s): D64.9 - ANEMIA, UNSPECIFIED Status: Chronic (3) CAD (coronary artery disease) Code(s): I25.10 - ATHSCL HEART DISEASE OF [place] CORONARY ARTERY W/O ANG PCTRS Status: Chronic Qualifiers: Comment: (4) Cholelithiases Code(s): K80.20 - CALCULUS OF GALLBLADDER W/O CHOLECYSTITIS W/O OBSTRUCTION Status: Chronic (5) Diabetes type 2, controlled Code(s): E11.9 - TYPE 2 DIABETES MELLITUS WITHOUT COMPLICATIONS Status: Chronic (6) Dyslipidemia Code(s): E78.5 - HYPERLIPIDEMIA, UNSPECIFIED Status: Chronic (7) GERD (gastroesophageal reflux disease) Code(s): K21.9 - GASTRO-ESOPHAGEAL REFLUX DISEASE WITHOUT ESOPHAGITIS Status: Chronic (8) HTN (hypertension) Code(s): I10 - ESSENTIAL (PRIMARY) HYPERTENSION Status: Chronic Qualifiers: Comment: (9) Ischemic cardiomyopathy Code(s): I25.5 - ISCHEMIC CARDIOMYOPATHY Status: Chronic Comment: (10) Morbid obesity with BMI of 45.0-49.9, adult Code(s): E66.01 - MORBID (SEVERE) OBESITY DUE TO EXCESS CALORIES; Z68.42 - BODY MASS INDEX (BMI) 45.0-49.9, ADULT Status: Chronic (11) Non compliance w medication regimen Code(s): Z91.14 - PATIENT'S OTHER NONCOMPLIANCE WITH MEDICATION REGIMEN Status : Chronic (12) Seizure disorder Code(s): G40.909 - EPILEPSY, UNSP, NOT INTRACTABLE, WITHOUT STATUS EPILEPTICUS Status: Chronic - Plan cont current plan of care * continue diuresis * medication reviewed as below * symptomatic treatment * medically stable * expecting discharge soon * fluid restriction and medication compliance education given. Review of Systems - Review of Systems ENT: negative: Ear Pain, Ear Discharge, Nose Pain, Nose Discharge, Nose Congestion, Mouth Pain, Mouth Swelling, Throat Pain, Throat Swelling, Other Respiratory: negative: Cough, Dry, Shortness of Breath, Hemoptysis, SOB with Excertion, Pleuritic Pain, Sputum, Wheezing Cardiovascular: negative: chest pain, palpitations, orthopnea, paroxysmal nocturnal dyspnea, edema, light headedness, other Gastrointestinal: negative: Nausea, Vomiting, Abdominal Pain, Diarrhea, Constipation, Melena, Hematochezia, Other Genitourinary: negative: Dysuria, Frequency, Incontinence, Hematuria, Retention , Other Musculoskeletal: negative: Neck Pain, Shoulder Pain, Arm Pain, Back Pain, Hand Pain, Leg Pain, Foot Pain, Other - Medications/Allergies Allergies/Adverse Reactions: Allergies Allergy/AdvReac Type Severity Reaction Status Date / Time No Known Drug Allergies Allergy Verified 10/26/18 01:44 Medications: Current Medications Acetaminophen (Tylenol) 650 mg PO Q4H PRN PRN Reason: Headache/Fever/Mild Pain (1-3) Hydrocodone Bitart/Acetaminophen ([place] 5/325) 1 tab PO Q4H PRN PRN Reason: Moderate Pain (4-6) Albuterol/Ipratropium (Duoneb) 3 ml NEB [id number] [facility] Last Admin: 10/29/18 07:55 Dose: 3 ml Artificial Tears (Tears Naturale) 2 drop EA EYE PRN PRN PRN Reason: Dry Eyes Aspirin (Aspirin Chewable) 81 mg PO DAILY [facility] Last Admin: 10/29/18 08:31 Dose: 81 mg Atorvastatin Calcium (Lipitor) 40 mg PO HS [facility] Last Admin: 10/28/18 20:32 Dose: 40 mg Bisacodyl (Dulcolax) 10 mg [place] DAILYPRN PRN PRN Reason: Constipation Bisacodyl (Dulcolax) 10 mg [place] DAILYPRN PRN PRN Reason: Constipation Carvedilol (Coreg) 3.125 mg PO BID-[facility] Last Admin: 10/29/18 08:31 Dose: 3.125 mg Cholestyramine Resin (Questran Light) 4 gm PO BID [facility] Last Admin: 10/29/18 08:30 Dose: 4 gm Dextrose/Water (Dextrose 50%) 25 gm SLOW IVP PRN PRN PRN Reason: Hypoglycemia Enoxaparin Sodium (Lovenox) 40 mg SC 0900 [facility] Last Admin: 10/29/18 08:31 Dose: 40 mg Furosemide (Lasix) 40 mg SLOW IVP 0600,1400 [facility] Last Admin: 10/29/18 05:37 Dose: 40 mg Glucagon (Glucagon) 1 mg IM PRN PRN PRN Reason: Hypoglycemia Guaifenesin (Mucinex) 600 mg PO Q12HR [facility] Last Admin: 10/29/18 08:31 Dose: 600 mg Guaifenesin (Robitussin Sf) 200 mg PO Q4H PRN PRN Reason: Cough Guaifenesin/Dextromethorphan (Robitussin Dm) 15 ml PO Q4H PRN PRN Reason: Cough Hydralazine HCl (Apresoline) 10 mg SLOW IVP Q4H PRN PRN Reason: SBP > 180 and HR < 70 Dextrose/Water (D5w) 1,000 mls @ 0 mls/hr IV .Q0M PRN PRN Reason: Hypoglycemia Insulin Human Lispro (Humalog) 0 units SC .MODERATE SLIDING SC PRN PRN Reason: Moderate Correctional Scale Last Admin: 10/27/18 12:38 Dose: 2 unit Insulin Human Lispro (Humalog) 0 units SC .BEDTIME SLIDING SC PRN PRN Reason: Bedtime Correctional Scale Levetiracetam (Keppra) 500 mg PO BID [facility] Last Admin: 10/29/18 08:31 Dose: 500 mg Lisinopril (Zestril) 5 mg PO BID [facility] Last Admin: 10/29/18 08:30 Dose: 5 mg Loperamide HCl (Imodium) 2 mg PO PRN PRN PRN Reason: Diarrhea/Loose Stools Loratadine (Claritin) 10 mg PO DAILYPRN PRN PRN Reason: Sinus Symptoms Metformin HCl (Glucophage) 850 mg PO BID [facility] Last Admin: 10/29/18 08:31 Dose: 850 mg Metolazone (Zaroxolyn) 5 mg PO 0830 [facility] Last Admin: 10/29/18 08:31 Dose: 5 mg Ondansetron HCl (Zofran Odt) 4 mg PO Q6H PRN PRN Reason: Nausea/Vomiting Ondansetron HCl (Zofran) 4 mg IVP Q6H PRN PRN Reason: Nausea/Vomiting Pantoprazole Sodium (Protonix) 40 mg PO DAILY [facility] Last Admin: 10/29/18 08:31 Dose: 40 mg Senna/Docusate Sodium (Senokot S) 2 tab PO BID PRN PRN Reason: Constipation Sodium Chloride (Flush - Normal Saline) 10 ml IVF PRN PRN PRN Reason: Saline Flush Last Admin: 10/26/18 06:05 Dose: 10 ml Sodium Chloride ([place] Nasal [place] 0.65%) 0 ml EA NARE QIDPRN PRN PRN Reason: Nasal Congestion Throat Lozenges (Cepastat Lozenges) 1 joaquin PO Q2H PRN PRN Reason: Sore Throat Zolpidem Tartrate (Ambien) 5 mg PO HSPRN PRN PRN Reason: Insomnia
--- NOTE | 2018-10-29 15:31 | PDOC.CTH ---
Cardiology Progress Note - Subjective The pt seen and examined. No overnight events. No cardiac complaints. - Objective Vital Signs Temp Pulse Resp BP BP Pulse Ox 10/29/18 13:01 63 16 94 L 10/29/18 12:38 98.3 F 88 19 121/70 94 L 10/29/18 08:30 74 10/29/18 07:55 74 16 10/29/18 07:48 97.7 F 65 18 139/68 96 10/29/18 07:20 94 L 10/29/18 04:00 97.6 F 63 18 135/72 92 L Weight 277 lb 8 oz 10/28/18 10/29/18 10/30/18 06:59 06:59 06:59 Intake Total 1400 1360 Output Total 2500 2440 Balance -1100 -1080 - Physical Examination General/Neuro: alert & oriented x3 Neck: no JVD present Lungs: other: (diminished at bases) Heart: RRR Abdomen: soft Extremities: other: (2+ pitting BLE edema) - Telemetry Telemetry Rhythm: SR - Labs Result Diagrams: 10/27/18 05:44 10/28/18 05:13 Troponin/CKMB Troponin I 0.019 ng/mL (< 0.028) 10/25/18 16:15 - Assessment/Plan 1. Acute on chronic combined HF with EF 25-30% in 04/2018 - stable with Lasix 40mg IV BID with Metolazone; On Coreg, Lisinopril. On 1500ml/day fluid restrictions. 2. Ischemic CMY with EF 20-25% - The pt cont. declining AICD placement 3. CAD with hx of CABG in 2004 - stable; on bblocker, IRAJ, ASA, and Statin 4. HTN - stable 5. HLD - on statin 6. DM type 2 - managed by PCP 7. [place] - unchanged 8. Seizure - On Keppra 9. Non compliance w medication regimen MAR reviewed Pt. seen and eval. by me. I agree with the A/P by the PIN SORTER AND BAGGER. RRR. gjm Review of Systems - Review of Systems Constitutional: reports: no symptoms reported EENTM: reports: no symptoms reported Respiratory: reports: no symptoms reported Cardiac (ROS): reports: no symptoms reported ABD/GI: reports: no symptoms reported : reports: no symptoms reported
[2018-10-29] MEDS: Atorvastatin Calcium 40 MG TAB PO SCH (21:25)
[2018-10-30 08:31] LABS: Anion Gap 13 mmol/L (10-20); BUN (Urea Nitrogen) 22 mg/dL (8.4-25.7); Calc. Creatinine Clearance 159 mL/min (70-130); Calcium 9.4 mg/dL (7.8-10.44); Carbon Dioxide 26 mmol/L (23-31); Chloride 101 mmol/L (98-107); Estimated GFR-MDRD Greater than 90; Glucose 122 mg/dL (80-115); Magnesium 1.5 mg/dL (1.6-2.6); Potassium 4.1 mmol/L (3.5-5.1); Sodium 136 mmol/L (136-145)
[2018-10-30 08:33] VITALS: TEMP 97.4
[2018-10-30] MEDS: Carvedilol 3.125 MG TAB PO SCH (08:35)
[2018-10-30] MEDS: Aspirin Chewable 81 MG TAB PO SCH (08:35)
[2018-10-30] MEDS: Lisinopril 5 MG TAB PO SCH (08:35)
[2018-10-30] MEDS: levETIRAcetam 500 MG TAB PO SCH (08:35)
[2018-10-30] MEDS: Enoxaparin Sodium 40 MG/0.4 ML SYRINGE SC SCH (08:35)
[2018-10-30] MEDS: Furosemide 40 MG TAB PO SCH ×2 (08:35→13:27)
[2018-10-30] MEDS: Metolazone 5 MG TAB PO SCH (08:35)
[2018-10-30] MEDS: metFORMIN 850 MG TAB PO SCH (08:35)
[2018-10-30] MEDS: guaiFENesin ER 600 MG TAB PO SCH (08:35)
[2018-10-30] MEDS: Cholestyramine/Aspartame 4 gm Packet PO SCH (09:31)
--- NOTE | 2018-10-30 11:26 | DIS ---
DATE OF ADMISSION: 10/25/2018 DATE OF DISCHARGE: 10/30/2018 PRIMARY CARE PHYSICIAN: [facility] nathan. DISCHARGE DISPOSITION: Home. PRIMARY DISCHARGE DIAGNOSES: Acute on chronic combined systolic and diastolic heart failure, ACC stage C, hypomagnesemia, and paroxysmal supraventricular tachycardia. SECONDARY DISCHARGE DIAGNOSES: Seizure disorder, noncompliance with medication treatment, morbid obesity with BMI of 43, ischemic cardiomyopathy, hypertension, gastroesophageal reflux disease, dyslipidemia, diabetes type 2, cholelithiasis, coronary artery disease, normocytic/normochromic anemia, and combined systolic and diastolic heart failure. PRIMARY PROCEDURE/OPERATION: None. RADIOLOGICAL INVESTIGATION: Chest x-ray showed congestion. SIGNIFICANT LABORATORY DATA: WBC 6.7, hemoglobin 11.4, and platelet 183. Sodium 136 and creatinine 0.84. BNP 322. DISCHARGE MEDICATIONS: 1. Aspirin 81 mg p.o. daily. 2. Lipitor 40 mg p.o. at bedtime. 3. Coreg 3.125 mg p.o. t.i.d. 4. Lasix 80 mg b.i.d. 5. Glipizide 5 mg b.i.d. 6. Metformin 850 mg b.i.d. 7. Protonix 40 mg daily. 8. Lisinopril 5 mg b.i.d. 9. Zaroxolyn 5 mg p.o. Tuesday, Tuesday, and Tuesday. CONTRAINDICATION: None. CODE STATUS: Full code. INPATIENT AUTOMOBILE LIGHTS ASSEMBLER: Dr. Devang Madera. TEST RESULT PENDING ON DISCHARGE: None. ALLERGIES: NO KNOWN DRUG ALLERGIES. DISCHARGE PLAN: Posthospital, the patient will follow up with Cardiology, Heart Failure Clinic, and primary care physician on November 28, 2018, at 10:30 a.m. HOSPITAL COURSE: A 62-year-old male with above-mentioned medical problem, who was admitted by Dr. Norton. Please see his H and P for further details. This patient was having increasing shortness of breath, orthopnea, PND, and leg swelling. He was having elevated BNP. His chest x-ray showed pulmonary vascular congestion. Clinically, he was having acute on chronic congestive heart failure exacerbation, which was treated with IV Lasix and Zaroxolyn while in hospital. Cardiology group was following while in the hospital. The patient was made euvolemic by the time of discharge. During this admission, the patient also refused to go for AICD in view of his chronic ischemic cardiomyopathy with low EF. This patient was evaluated by Cardiology group during this admission. I have provided the patient education about heart failure and fluid restriction as well as medication compliance education was given. Overall, the patient is stable for discharge today. PHYSICAL EXAMINATION: VITAL SIGNS: Currently, temperature 97.4, pulse 72, respiratory rate 18, saturation 94% on room air, and blood pressure 127/61. Weight 171 pounds. GENERAL: The patient is currently alert and awake, no obvious acute distress. HEENT: Head, normocephalic and atraumatic. LUNGS: Clear without any rhonchi or rales. CARDIAC: S1, S2. Regular without any murmur. ABDOMEN: Soft and benign. EXTREMITIES: No edema. NEUROLOGIC: Nonfocal examination. Overall, the patient is medically stable for discharge today. Job ID: [id number]
[2018-10-30] MEDS: Magnesium Sulfate 3 GM in Sodium Chloride 0.9% 100 ML IVPB SCH ×2 (11:30→13:29)
[2018-10-30 12:00] VITALS: BP 144/67
[2018-10-30] MEDS ORDERED: Magnesium Oxide 400 MG TAB PO SCH (12:30)
--- NOTE | 2018-10-30 12:30 | PDOC.PN ---
- Subjective Encounter Start Date: 10/30/18 Encounter Start Time: 10:40 Patient seen and examined. No new complaints. No overnight events - Objective Resuscitation Status - Order Detail: 10/25/18 19:30 Resuscitation Status Routine Resuscitation Status: FULL: Full Resuscitation MAR Reviewed: Yes Vital Signs & Weight: Vital Signs (12 hours) Temp Pulse Resp BP BP Pulse Ox 10/30/18 11:55 76 16 144/67 H 95 10/30/18 08:31 97.4 F L 72 18 127/61 94 L 10/30/18 08:10 94 L 10/30/18 07:42 83 16 93 L 10/30/18 04:00 98.3 F 64 20 114/56 L 94 L Weight Weight 271 lb 4 oz I&O: 10/29/18 10/30/18 10/31/18 06:59 06:59 06:59 Intake Total 1360 1150 Output Total 2440 2205 [facility] [place]1080 -1645 Result Diagrams: 10/27/18 05:44 10/30/18 07:34 Additional Labs: Accuchecks 10/30/18 10/30/18 10/29/18 10:58 05:27 21:03 POC Glucose 144 H 117 H 157 H 10/29/18 16:36 POC Glucose 115 H EKG Reviewed by me: Yes Phys Exam - Physical Examination Constitutional: NAD HEENT: PERRLA, moist MMs, sclera anicteric Neck: no JVD, supple Respiratory: no wheezing, no rales, no rhonchi Cardiovascular: RRR, no significant murmur, no rub Gastrointestinal: soft, non-tender, no distention, positive bowel sounds Musculoskeletal: no edema, pulses present Neurological: non-focal, normal sensation, moves all 4 limbs Psychiatric: normal affect, A&O x 3 Skin: no rash, normal turgor Dx/Plan (1) Acute on chronic combined systolic and diastolic congestive heart failure Code(s): I50.43 - ACUTE ON CHRONIC COMBINED SYSTOLIC AND DIASTOLIC HRT FAIL Status: Acute Comment: (2) Anemia, normocytic normochromic Code(s): D64.9 - ANEMIA, UNSPECIFIED Status: Chronic (3) CAD (coronary artery disease) Code(s): I25.10 - ATHSCL HEART DISEASE OF [place] CORONARY ARTERY W/O ANG PCTRS Status: Chronic Qualifiers: Comment: (4) Cholelithiases Code(s): K80.20 - CALCULUS OF GALLBLADDER W/O CHOLECYSTITIS W/O OBSTRUCTION Status: Chronic (5) Diabetes type 2, controlled Code(s): E11.9 - TYPE 2 DIABETES MELLITUS WITHOUT COMPLICATIONS Status: Chronic (6) Dyslipidemia Code(s): E78.5 - HYPERLIPIDEMIA, UNSPECIFIED Status: Chronic (7) GERD (gastroesophageal reflux disease) Code(s): K21.9 - GASTRO-ESOPHAGEAL REFLUX DISEASE WITHOUT ESOPHAGITIS Status: Chronic (8) HTN (hypertension) Code(s): I10 - ESSENTIAL (PRIMARY) HYPERTENSION Status: Chronic Qualifiers: Comment: (9) Ischemic cardiomyopathy Code(s): I25.5 - ISCHEMIC CARDIOMYOPATHY Status: Chronic Comment: (10) Morbid obesity with BMI of 45.0-49.9, adult Code(s): E66.01 - MORBID (SEVERE) OBESITY DUE TO EXCESS CALORIES; Z68.42 - BODY MASS INDEX (BMI) 45.0-49.9, ADULT Status: Chronic (11) Non compliance w medication regimen Code(s): Z91.14 - PATIENT'S OTHER NONCOMPLIANCE WITH MEDICATION REGIMEN Status : Chronic (12) Seizure disorder Code(s): G40.909 - EPILEPSY, UNSP, NOT INTRACTABLE, WITHOUT STATUS EPILEPTICUS Status: Chronic - Plan cont current plan of care * medication reviewed as below * symptomatic treatment * see discharge tom. Review of Systems - Review of Systems ENT: negative: Ear Pain, Ear Discharge, Nose Pain, Nose Discharge, Nose Congestion, Mouth Pain, Mouth Swelling, Throat Pain, Throat Swelling, Other Respiratory: negative: Cough, Dry, Shortness of Breath, Hemoptysis, SOB with Excertion, Pleuritic Pain, Sputum, Wheezing Cardiovascular: negative: chest pain, palpitations, orthopnea, paroxysmal nocturnal dyspnea, edema, light headedness, other Gastrointestinal: negative: Nausea, Vomiting, Abdominal Pain, Diarrhea, Constipation, Melena, Hematochezia, Other Genitourinary: negative: Dysuria, Frequency, Incontinence, Hematuria, Retention , Other Musculoskeletal: negative: Neck Pain, Shoulder Pain, Arm Pain, Back Pain, Hand Pain, Leg Pain, Foot Pain, Other Skin: negative: Rash, Lesions, Ford, Bruising, Other - Medications/Allergies Allergies/Adverse Reactions: Allergies Allergy/AdvReac Type Severity Reaction Status Date / Time No Known Drug Allergies Allergy Verified 10/26/18 01:44 Medications: Current Medications Acetaminophen (Tylenol) 650 mg PO Q4H PRN PRN Reason: Headache/Fever/Mild Pain (1-3) Hydrocodone Bitart/Acetaminophen ([place] 5/325) 1 tab PO Q4H PRN PRN Reason: Moderate Pain (4-6) Albuterol/Ipratropium (Duoneb) 3 ml NEB [id number] [facility] Last Admin: 10/30/18 07:42 Dose: 3 ml Artificial Tears (Tears Naturale) 2 drop EA EYE PRN PRN PRN Reason: Dry Eyes Aspirin (Aspirin Chewable) 81 mg PO DAILY [facility] Last Admin: 10/30/18 08:35 Dose: 81 mg Atorvastatin Calcium (Lipitor) 40 mg PO HS [facility] Last Admin: 10/29/18 21:25 Dose: 40 mg Bisacodyl (Dulcolax) 10 mg DE DAILYPRN PRN PRN Reason: Constipation Bisacodyl (Dulcolax) 10 mg DE DAILYPRN PRN PRN Reason: Constipation Carvedilol (Coreg) 3.125 mg PO BID-WM [facility] Last Admin: 10/30/18 08:35 Dose: 3.125 mg Cholestyramine Resin (Questran Light) 4 gm PO BID [facility] Last Admin: 10/30/18 09:31 Dose: 4 gm Dextrose/Water (Dextrose 50%) 25 gm SLOW IVP PRN PRN PRN Reason: Hypoglycemia Enoxaparin Sodium (Lovenox) 40 mg SC 0900 [facility] Last Admin: 10/30/18 08:35 Dose: 40 mg Furosemide (Lasix) 40 mg PO 0900,1400 [facility] Last Admin: 10/30/18 08:35 Dose: 40 mg Glucagon (Glucagon) 1 mg IM PRN PRN PRN Reason: Hypoglycemia Guaifenesin (Mucinex) 600 mg PO Q12HR [facility] Last Admin: 10/30/18 08:35 Dose: 600 mg Guaifenesin (Robitussin Sf) 200 mg PO Q4H PRN PRN Reason: Cough Guaifenesin/Dextromethorphan (Robitussin Dm) 15 ml PO Q4H PRN PRN Reason: Cough Hydralazine HCl (Apresoline) 10 mg SLOW IVP Q4H PRN PRN Reason: SBP > 180 and HR < 70 Dextrose/Water (D5w) 1,000 mls @ 0 mls/hr IV .Q0M PRN PRN Reason: Hypoglycemia Insulin Human Lispro (Humalog) 0 units SC .MODERATE SLIDING SC PRN PRN Reason: Moderate Correctional Scale Last Admin: 10/27/18 12:38 Dose: 2 unit Insulin Human Lispro (Humalog) 0 units SC .BEDTIME SLIDING SC PRN PRN Reason: Bedtime Correctional Scale Levetiracetam (Keppra) 500 mg PO BID [facility] Last Admin: 10/30/18 08:35 Dose: 500 mg Lisinopril (Zestril) 5 mg PO BID [facility] Last Admin: 10/30/18 08:35 Dose: 5 mg Loperamide HCl (Imodium) 2 mg PO PRN PRN PRN Reason: Diarrhea/Loose Stools Loratadine (Claritin) 10 mg PO DAILYPRN PRN PRN Reason: Sinus Symptoms Magnesium Oxide (Magnesium Oxide) 800 mg PO NOW [facility] Stop: 10/30/18 14:00 Metformin HCl (Glucophage) 850 mg PO BID [facility] Last Admin: 10/30/18 08:35 Dose: 850 mg Metolazone (Zaroxolyn) 5 mg PO 0830 [facility] Last Admin: 10/30/18 08:35 Dose: 5 mg Ondansetron HCl (Zofran Odt) 4 mg PO Q6H PRN PRN Reason: Nausea/Vomiting Ondansetron HCl (Zofran) 4 mg IVP Q6H PRN PRN Reason: Nausea/Vomiting Pantoprazole Sodium (Protonix) 40 mg PO DAILY [facility] Last Admin: 10/30/18 08:35 Dose: 40 mg Senna/Docusate Sodium (Senokot S) 2 tab PO BID PRN PRN Reason: Constipation Sodium Chloride (Flush - Normal Saline) 10 ml IVF PRN PRN PRN Reason: Saline Flush Last Admin: 10/26/18 06:05 Dose: 10 ml Sodium Chloride ([place] Nasal [place] 0.65%) 0 ml EA NARE QIDPRN PRN PRN Reason: Nasal Congestion Throat Lozenges (Cepastat Lozenges) 1 joaquin PO Q2H PRN PRN Reason: Sore Throat Zolpidem Tartrate (Ambien) 5 mg PO HSPRN PRN PRN Reason: Insomnia
== END 2018-10-30 14:51 | disposition home health service (06) | DRG 292 ==
LOC: ERS 15:28 → 2NO 17:08
PROVIDERS: ADMIT Internal Medicine; ATTEND Internal Medicine
DX: I11.0 Hypertensive heart disease with heart failure (principal); Z68.41 Body mass index [BMI] 40.0-44.9, adult; I47.1 Supraventricular tachycardia; I25.10 Atherosclerotic heart disease of native coronary artery without angina pectoris; E78.5 Hyperlipidemia, unspecified; E11.9 Type 2 diabetes mellitus without complications; D64.9 Anemia, unspecified; K80.20 Calculus of gallbladder without cholecystitis without obstruction; K21.9 Gastro-esophageal reflux disease without esophagitis; I25.5 Ischemic cardiomyopathy; E66.01 Morbid (severe) obesity due to excess calories; G40.909 Epilepsy, unspecified, not intractable, without status epilepticus; I50.43 Acute on chronic combined systolic (congestive) and diastolic (congestive) heart failure; E83.42 Hypomagnesemia; Z87.891 Personal history of nicotine dependence; I25.2 Old myocardial infarction; Z95.1 Presence of aortocoronary bypass graft; Z79.899 Other long term (current) drug therapy; Z79.82 Long term (current) use of aspirin; Z79.84 Long term (current) use of oral hypoglycemic drugs; Z91.19 Patient's noncompliance with other medical treatment and regimen; Z91.14 Patient's other noncompliance with medication regimen
CPT/HCPCS: 36415; 36416; 71045; 80048; 80053; 80061; 83036; 83735; 83880; 84443; 84484; 84550; 85025; 93005; 93798; 96374; J1650; J1940; J3475; J3490; J7620

== ENCOUNTER 2018-12-29 14:00 | Emergency (ER) | payer MEDICARE ==
[2018-12-29 15:15] LABS: #Basophils 0.1 thou/uL (0.0-0.2); #Eosinphils 0.3 thou/uL (0.0-0.7); #Lymphocytes 1.5 thou/uL (1.20-3.40); #Monocytes 0.8 thou/uL (0.11-0.59); #Neutrophils 5.1 thou/uL (1.40-6.50); %Eosinophils 4.4 % (0.0-10.0); %Neutrophils 65.6 % (42.0-75.0); Hemoglobin 12.1 g/dL (14.0-18.0); Mean Corpuscular Hemoglobin 29.3 pg (27.0-31.0); Mean Corpuscular Volume 88.7 fL (78.0-98.0); Mean Platelet Volume 8.7 fL (7.4-10.4); Platelet Count 194 thou/uL (130-400); RBC Distribution Width 16.5 % (11.5-14.5); Red Blood Cell (RBC) Count 4.13 mill/uL (4.70-6.10); White Blood Cell (WBC) Count 7.8 thou/uL (4.8-10.8)
[2018-12-29 15:34] LABS: ALT (SGPT) 9 U/L (8-55); AST (SGOT) 13 U/L (5-34); Albumin 3.7 g/dL (3.4-4.8); Alkaline Phosphatase 97 U/L (40-150); Anion Gap 13 mmol/L (10-20); BUN (Urea Nitrogen) 28 mg/dL (8.4-25.7); Bilirubin, Total 0.4 mg/dL (0.2-1.2); Calc. Creatinine Clearance 0 mL/min (70-130); Calcium 9.3 mg/dL (7.8-10.44); Carbon Dioxide 25 mmol/L (23-31); Chloride 101 mmol/L (98-107); Estimated GFR-MDRD 72; Globulin 3.8 g/dL (2.4-3.5); Glucose 208 mg/dL (80-115); Potassium 4.3 mmol/L (3.5-5.1); Protein, Total 7.5 g/dL (5.8-8.1); Sodium 135 mmol/L (136-145)
--- NOTE | 2018-12-29 15:57 | RAD ---
PORTABLE CHEST 1 VIEW: Date: 12/29/18 Time: 1519 hours HISTORY: CHF, dyspnea. FINDINGS/IMPRESSION: Comparison made with exam of 10/25/18. The heart size is enlarged. There are changes of median sternotomy. There is pulmonary vascular conge stion. No lobar consolidation, pneumothoraces, or large effusions are seen. Small effusions are prese nt. Findings are suggestive of CHF. POS: [facility]
[2018-12-29 16:31] LABS: CKMB 2.6 ng/mL (0-6.6)
== END 2018-12-29 16:14 | disposition home or self-care (01) ==
LOC: ERS 14:00
DX: R60.0 Localized edema (principal); I11.0 Hypertensive heart disease with heart failure; I50.9 Heart failure, unspecified; I25.10 Atherosclerotic heart disease of native coronary artery without angina pectoris; I25.2 Old myocardial infarction; E11.9 Type 2 diabetes mellitus without complications; E78.5 Hyperlipidemia, unspecified; F17.210 Nicotine dependence, cigarettes, uncomplicated; Z79.84 Long term (current) use of oral hypoglycemic drugs; Z79.899 Other long term (current) drug therapy
CPT/HCPCS: 36415; 71045; 80053; 82550; 82553; 83880; 84484; 85025; 93005

== ENCOUNTER 2019-09-15 11:11 | Emergency (ER) | payer OTHER ==
[2019-09-15] MEDS ORDERED: Acetaminophen 500 MG TAB ONE (12:03)
[2019-09-15 12:26] LABS: Hemoglobin 13.1 g/dL (14.0-18.0); Mean Corpuscular HGB CONC 30.7 g/dL (32.0-36.0); Mean Corpuscular Hemoglobin 27.1 pg (27.0-31.0); Mean Corpuscular Volume 88.4 fL (78.0-98.0); Platelet Count 224 thou/uL (130-400); RBC Distribution Width 18.5 % (11.5-14.5); Red Blood Cell (RBC) Count 4.84 mill/uL (4.70-6.10); White Blood Cell (WBC) Count 15.9 thou/uL (4.8-10.8)
[2019-09-15 12:38] LABS: INR-International Normal Ratio 1.4; PTT 36.7 SEC (22.9-36.1)
[2019-09-15 12:49] LABS: Anisocytosis SLIGHT = 6-15 cells (100X) (0-5/hpf); Band 38 % (5-11); Hypochromia SLIGHT = 6-15 cells (100X) (0-5/hpf); Large Platelets SLIGHT; Lymphocytes 3 % (21-51); MDiff Complete? YES; Monocytes 10 % (0-10); Neutrophil 47 % (42-75); Platelet Morphology Comment Appears Adequate; Polychromasia SLIGHT = 2-3 cells (100X) (0-2/hpf); Reactive Lymphocytes 2 % (0-10); Target Cells SLIGHT = 2-5 cells (100X) (0-1/hpf)
[2019-09-15 12:56] LABS: ALT (SGPT) 14 U/L (8-55); AST (SGOT) 39 U/L (5-34); Albumin 3.1 g/dL (3.4-4.8); Alkaline Phosphatase 162 U/L (40-110); Anion Gap 15 mmol/L (10-20); BUN (Urea Nitrogen) 21 mg/dL (8.4-25.7); Bilirubin, Total 0.9 mg/dL (0.2-1.2); Calc. Creatinine Clearance 0 mL/min (70-130); Calcium 9.2 mg/dL (7.8-10.44); Carbon Dioxide 24 mmol/L (23-31); Chloride 101 mmol/L (98-107); Estimated GFR-MDRD 59; Globulin 4.6 g/dL (2.4-3.5); Glucose 214 mg/dL (80-115); Lipase 15 U/L (8-78); Potassium 4.7 mmol/L (3.5-5.1); Protein, Total 7.7 g/dL (5.8-8.1); Sodium 135 mmol/L (136-145)
--- NOTE | 2019-09-15 13:01 | RAD ---
PORTABLE CHEST: History: Dyspnea. FINDINGS: The heart size is enlarged. There are post op sternotomy changes. Body habitus limits detail in the l ronna bases, some slight increased density could represent atelectasis. IMPRESSION: Cardiomegaly with post op sternotomy changes. No signs of failure. Some bibasilar interstitial change , probably on the basis of atelectasis. POS: [facility]
[2019-09-15 13:02] LABS: Bacteria/HPF None Seen HPF (None Seen); Bilirubin 1+ (Negative); Blood, Urine 2+ (Negative); Clarity Turbid (Clear); Glucose, Urine (Dipstick) 30 mg/dL (Negative); Leukocyte 25 Leu/uL (Negative); Nitrite Negative (Negative); Protein, Urine (Dipstick) 600 mg/dL (Neg-Trace); Squamous Epithelial None Seen HPF (0-3)
[2019-09-15 13:15] LABS: CKMB 2.6 ng/mL (0-6.6)
[2019-09-15] MEDS ORDERED: Enoxaparin Sodium 60 MG/0.6 ML SYRINGE ONE (13:19)
[2019-09-15] MEDS ORDERED: Aspirin 325 MG TAB ONE (13:19)
[2019-09-15] MEDS ORDERED: Enoxaparin Sodium 100 MG/ML SYRINGE ONE (13:19)
[2019-09-15] MEDS ORDERED: Vancomycin 1 GM/200 ML BAG ONE (13:19)
[2019-09-15] MEDS ORDERED: cefTRIAXone\\ROCEPHIN 2 GM VIAL ONE (13:19)
--- NOTE | 2019-09-15 15:09 | CT ---
CT OF THE CHEST, ABDOMEN AND PELVIS WITH IV CONTRAST INDICATION: 64 [id number] male with complaints of abdominal pain, cough, fever and shortness of br eath COMPARISON: None FINDINGS: CHEST: Lungs: There is bibasilar atelectasis. There is scattered emphysema. There is mild scarring involving the lateral aspect of the left upper lobe with some adjacent pleural thickening. Pleural space: There are small bilateral pleural effusions Mediastinum: There are mural calcifications involving the left ventricular anterior wall suspicious f or prior infarct. There coronary artery and thoracic aortic calcifications. There are multiple enlarged lymph nodes of the mediastinum. One of the most prominent is seen within the prevascular spa ce measuring 1.2 cm. Axilla: Few shotty appearing axillary lymph nodes are evident, none of which are pathologically enla rged based on size criteria ABDOMEN: Liver: No focal lesion. Gallbladder: Cholelithiasis Pancreas: Normal. Adrenal glands: Normal. Spleen: Calcified granuloma Kidneys and ureters: Normal. No hydronephrosis. Vasculature: There are severe vascular calcifications seen involving the visualized vasculature. Lymph nodes:There is a mildly prominent left common iliac lymph node measuring 1.8 cm. There are shot ty appearing lymph nodes within the para-aortic region. There is a 1.5 cm enlarged lymph nodes seen along the left external iliac vasculature. There is a 1.6 cm enlarged lymph node seen adjacent to the left common femoral vein. There are mildly prominent lymph nodes seen within the inguinal regions bilaterally. Free fluid in abdomen:No free fluid is evident. PELVIS: Small and large bowel: There is postprocedural change of a small bowel resection. A few mildly promin ent loops of small bowel are seen within the upper central abdomen without a transitional zone. The colon is largely decompressed. There is a lower midline anterior abdominal wall hernia containing maryann bstructed loops of small bowel. Appendix:Normal Bladder: Decompressed Rectal and perirectal soft tissues:Normal. Reproductive structures: Normal. Free fluid in pelvis: Mild free fluid in the pelvis. Lymphadenopathy pelvis: There are multiple enlarged lymph nodes as described above along the left narciso ac vascular chain and within both inguinal region Osseous structures: No acute osseous abnormality. No destructive osteolytic or osteoblastic lesion i s identified. There is scattered degenerative and osteoarthritic changes. Soft tissues:Diffuse anasarca IMPRESSION: 1. Findings suggesting mild CHF or volume overload. Mural calcifications involving the anterior wall left ventricle suspicious for prior infarct. 2. Multiple enlarged lymph nodes within the mediastinum, retroperitoneum, left hemipelvis and bilater al inguinal regions is nonspecific. These can be seen with a lymphoma. 3. Cholelithiasis. 4. Emphysema
[2019-09-15 15:26] LABS: Lactic Acid 1.6 mmol/L (0.5-2.2)
[2019-09-15 15:45] LABS: Troponin I 1.814 ng/mL (< 0.028)
[2019-09-15 16:29] VITALS: BP 94/58; TEMP 97.8
[2019-09-15 16:38] VITALS: BMI 56.7
[2019-09-15] MEDS ORDERED: Ondansetron PF 4 MG/2 ML Vial IVP PRN ×3 (16:45→18:14)
[2019-09-15] MEDS ORDERED: Acetaminophen 325 MG TAB PO PRN ×2 (16:45→18:14)
[2019-09-15] MEDS ORDERED: Ondansetron ODT 4 MG TAB SL PRN (16:45)
[2019-09-15] MEDS ORDERED: HumaLOG 300 UNITS/3 ML VIAL SC PRN ×2 (18:14)
[2019-09-15] MEDS ORDERED: Ondansetron ODT 4 MG TAB PO PRN ×2 (18:14)
[2019-09-15] MEDS ORDERED: Guaifenesin DM 100-10/5 ML UDCUP PO PRN (18:14)
[2019-09-15] MEDS ORDERED: hydrALAZINE 20 MG/ML VIAL SLOW IVP PRN (18:14)
[2019-09-15] MEDS ORDERED: Dextrose 50% Abboject 50 ML SYRINGE SLOW IVP PRN (18:14)
[2019-09-15] MEDS ORDERED: Dextrose 5% in Water 1,000 ML IV PRN (18:14)
[2019-09-15 18:39] LABS: Critical Call Chem Troponin I RESULT DECREASING; Troponin I 1.772 ng/mL (< 0.028)
[2019-09-15] MEDS ORDERED: Furosemide 40 MG/4 ML VIAL SLOW IVP SCH (20:30)
[2019-09-15] MEDS ORDERED: Enoxaparin Sodium 120 MG/0.8 ML SYRINGE SC SCH (21:00)
[2019-09-15] MEDS ORDERED: glipiZIDE 5 MG TAB PO SCH (21:00)
[2019-09-15] MEDS ORDERED: Carvedilol 3.125 MG TAB PO SCH (21:00)
[2019-09-15] MEDS ORDERED: Furosemide 80 MG TAB PO SCH (21:00)
--- NOTE | 2019-09-16 00:50 | HP ---
PRIMARY CARE PHYSICIAN: Dr. Abilio Martel. CHIEF COMPLAINT: "I got fever and I don't sleep." HISTORY OF PRESENT ILLNESS: Mr. Fu is a pleasant 64-year-old gentleman, who says that for the past month he has been having cough and shortness of breath. He also notes some fever which happened over the last couple of days. He also says that he has been having difficulty urinating because he noticed increasing abdominal girth. He is a very poor historian and so therefore, a lot more detail is unobtainable. He does note that the shortness of breath. He said at one time it was worse when he laid back and he has been waking up short of breath through the night, but then other times he says that it is not. He denies any nausea, no vomiting, no chest pain, but he has had this cough. As a result, he came to the ER for evaluation. In the ER, he was found to have an elevated white blood cell count as well as a chest x-ray, which showed some bilateral infiltrates and CT scan showing some small effusions. He also had an elevated troponin as well as proBNP and is being admitted for further evaluation. REVIEW OF SYSTEMS: All systems were reviewed and are negative except for that mentioned in the history of present illness. It is also noted that the patient denies any abdominal pain or change in appetite. PAST MEDICAL HISTORY: Significant for congestive heart failure, coronary artery disease, diabetes mellitus, hyperlipidemia, hypertension, and anxiety as well as depression and schizophrenia. PAST SURGICAL HISTORY: He has had a cardiac catheterization. ALLERGIES: NO KNOWN DRUG ALLERGIES. SOCIAL HISTORY: He is a nonsmoker. He says he drinks 2 to 3 beers a day just to feel good. He is single. No children. He lives alone. He has nurses coming out as well as a doctor, who comes to visit him. He would like to be a full code. FAMILY HISTORY: Unknown. MEDICATIONS: He had a couple of medications in his possession, one was Lasix 80 mg twice daily, then he had three separate bottles of carvedilol 3.125 mg t.i.d. The remainder of the medicines are taken from the records and include: 1. Atorvastatin 40 mg daily. 2. Glipizide 5 mg p.o. twice a day. 3. Lisinopril 5 mg twice a day. 4. Metformin 850 mg twice daily. 5. Protonix 40 mg daily. PHYSICAL EXAMINATION: GENERAL: He is alert and oriented. He does not appear to be in any distress. He is morbidly obese. VITAL SIGNS: Blood pressure was 94/58, heart rate 80, respiratory rate of 23, and temperature is 97.8. HEENT: His pupils are equal, round, and reactive. Extraocular muscles are intact. Sclerae anicteric. Throat, no erythema, no exudates. NECK: No adenopathy. No bruits. LUNGS: He has bilateral rales as well as some rhonchi throughout much of the lung field. CARDIOVASCULAR: Heart tones are distant, but the rate is regular. He does have a 2/6 systolic murmur. ABDOMEN: Obese. It is soft, nontender, and nondistended. He does have some significant subcutaneous edema up to the level of the umbilicus. EXTREMITIES: He has 1 to 2+ pitting edema. There are some chronic venous stasis changes. NECK: There is no joint effusion. NEUROLOGIC: His cranial nerves are intact and muscle strength is grossly intact. SKIN AND INTEGUMENT: Again, he has chronic venous stasis changes on his lower extremities. LABORATORY DATA: Sodium 135, potassium 4.7, chloride is 101, CO2 is 24, BUN of 21, creatinine 1.23, glucose is 214. Troponin is 1.8. White blood cell count 15.9, hemoglobin 13.1, hematocrit is 42.8, and platelet count is 224. The proBNP was 1913. INR is 1.4. Chest x-ray again by my reading shows cardiomegaly and bilateral pulmonary infiltrates. CT angiogram of the chest was negative for pulmonary embolism, but did note bilateral pleural effusions, some enlarged mediastinal lymph nodes as well as retroperitoneal nodes., findings consistent with emphysema and cholelithiasis. ASSESSMENT: This is a pleasant 64-year-old gentleman, who presents to the emergency room with complaints of shortness of breath as well as fever. He has bibasilar infiltrates and he states that he has not been out of the state or out of the country. No known sick contacts and his symptoms have been he states for the last month. Therefore, this is likely a community-acquired either bronchitis or early pneumonia. He also has findings suggestive of volume overload, likely due to congestive heart failure and he also has elevated troponin. He will be admitted to telemetry, started on IV antibiotics and albuterol inhalers, supplemental oxygen and a COVID-19 serology has been sent from the ER. 1. Acute on chronic congestive heart failure with acute on chronic respiratory failure. His blood pressure currently is on the lower side. Once it improves, then we likely can give him a dose of IV Lasix or continue his oral Lasix. We will also need to repeat an echo once this can be done safely and also consult Cardiology. 2. [id number] myocardial infarction. This is likely due to demand ischemia. He has already been started on Lovenox. We will continue aspirin and beta-mirna as tolerated and again consult Cardiology. 3. Diabetes mellitus. We will restart glipizide, but hold the metformin in the event that he has to have a contrast-requiring procedure. Job ID: [id number]
[2019-09-16] MEDS ORDERED: Vancomycin 1 GM in Premix Bag 1 BAG IVPB SCH (01:00)
--- NOTE | 2019-09-16 01:27 | CON ---
DATE OF CONSULTATION: 09/15/2019 PRIMARY CARE DOCTOR: DICTATED ENDS HERE. Job ID: [id number] MTDD
--- NOTE | 2019-09-16 02:33 | CON ---
DATE OF CONSULTATION: 09/15/2019 The patient's room number is 235. PRIMARY CARE DOCTOR: [facility]. PRIMARY STOPPER GRINDER: Dr. Devang Madera. REASON FOR CARDIOLOGY CONSULT: Congestive heart failure exacerbation. HISTORY OF PRESENT ILLNESS: Mr. Fu is a male with a significant history of chronic combined heart failure with EF 25% to 30% in April 2018, ischemic cardiomyopathy, coronary artery disease with a history of CABG in 2004, hypertension, hyperlipidemia, diabetes type 2, and anemia, and noncompliant with treatment and medications. According to Dr. Madera's office note, he has not seen Dr. Madera's office since October 2018. He started having difficulty to urinate for couple of days with shortness breath and cough. Due to those reasons, the patient decided to present to the emergency department for further evaluation and treatment. The patient stated the patient had a sharp needle-like pain on his left chest about two days ago, but it was a short period time and he was not concerned about it. At home, he does not watch his diet. He is still smoking. He is drinking. He has continued refusing AICD placement at this moment. PAST MEDICAL HISTORY: Coronary artery disease with CABG in 2003, hypertension, hyperlipidemia, diabetes, morbid obese, noncompliant with medications and treatment, current smoker and ETOH abuse. MEDICAL SURGERY: CABG in 2004. FAMILY HISTORY: The patient's sister has a medical history of myocardial infarction. SOCIAL HISTORY: He is living with his niece. He continues smoking EtOH. He does not exercise. He is noncompliant with medication and treatment. ALLERGIES: NO KNOWN DRUG ALLERGIES. MEDICATION LIST: He is taking 1. Glipizide 5 mg 1 tablet twice a day. 2. Protonix 40 mg once a day. 3. Lisinopril 5 mg twice a day. 4. Atorvastatin 40 mg once a day. 5. Lasix 80 mg twice a day. 6. Carvedilol 3.125 mg three times a day. 7. Metformin 850 mg 1 tablet twice a day. REVIEW OF SYSTEMS: 12-point review of systems negative unless otherwise mentioned. PHYSICAL EXAMINATION: VITAL SIGNS: Blood pressure 94/58, temperature 97.8, pulse is 80, respiratory rate 23, O2 saturation 95% with 4 L nasal cannula. GENERAL: The patient is alert and oriented x4, not in acute distress, but the patient is easy to get shortness of breath with conversation or mild exertion. HEAD: Normocephalic, atraumatic. EYES: Extraocular muscle movements intact. ENT and MOUTH: Oral and nasal mucosa moist without lesion. NECK: Supple. Normal range of motion. No JVD. RESPIRATORY: Wheezing and diminished at the bases. The patient is on 4 L nasal cannula. According to the patient, the patient does not use home O2. CARDIOVASCULAR: Regular rate and rhythm. Normal S1 and S2. No S3 or S4. No significant murmur, hives, or thrill noted. 2+ pulses in bilateral upper extremities. ABDOMEN: Distended but is soft to palpate at the site. EXTREMITIES: Lower extremities have discoloration and pitting edema 2 to 3+ in the bilateral lower extremities. Diminished pulses in bilateral lower extremities. NEUROLOGIC: The patient is alert and oriented x4, in no acute distress. Nonfocal. PSYCHIATRIC: The patient's mood is appropriate. LABORATORY DATA: The patient's WBC 15.9, hemoglobin 13.1, hematocrit 42.8, platelets 224. INR of 1.4. Sodium 135, potassium 4.7, BUN 21, creatinine 1.25. Lactic acid 1.6. AST 39, ALT 14. Chest x-ray shows cardiomegaly, and the patient's BNP is closer to 1000. CT scan of chest, abdomen, and pelvis showed bladder is decompressed. Otherwise , the patient has cholelithiasis and emphysema. ASSESSMENT/PLAN: 1. Acute on chronic combined heart failure with EF of 25% to 30% in April 2018. The patient is going to have one dose of Lasix IV push 40 mg tonight and changed to p.o. from tomorrow. It is possible we might go ahead and start metolazone or dobutamine. The patient is on carvedilol 3.125 mg twice a day. Since the patient's blood pressure is hypotensive, would like to hold the lisinopril for now. The patient is to do fluid restriction. 2. Ischemic cardiomyopathy with EF 20% to25% in April 2018. The patient continued refusing AICD placement. 3. Coronary artery disease with status post CABG. The patient is asymptomatic at this moment. He is on the carvedilol 3.125 three times a day, aspirin 81 mg once a day, and atorvastatin 40 mg once a day. 4. Hypertension. The patient is mildly hypotensive. We would like to continue to monitor. 5. Hyperlipidemia. The patient on Lipitor at this moment. 6. Diabetes type 2, which is managed by primary care doctor. 7. Anemia, which is stable at this moment. 8. The patient is a smoker and ETOH abuse. Smoking and ETOH cessation recommendation is given to the patient. 9. Noncompliant with medication. Thank you very much for Cardiology Service to participate in the care of this patient. We will follow along with the patient's care team and make further recommendations as appropriate. Job ID: [id number] MTDD
[2019-09-16] MEDS ORDERED: Fluticasone Propionate Nasal Spray 16 gm Bottle NASAL SCH (09:00)
[2019-09-16] MEDS ORDERED: Aspirin 81 mg Enteric Coated Tablet PO SCH (09:00)
[2019-09-16] MEDS ORDERED: Furosemide 80 MG TAB PO SCH (09:00)
--- NOTE | 2019-09-16 11:09 | CON ---
DATE OF CONSULTATION: 09/15/2019 ADDENDUM: INDICATION FOR CONSULTATION: This is a 64-year-old gentleman with CHF exacerbation. He has been seen in the hospital previously and followed by Dr. Madera. He again presented after having lower extremity edema, saying that he could not urinate and became more short of breath. He denied any chest pain. He does have a history of coronary artery disease, has undergone bypass surgery in the past. He has had several admissions in the hospital and has been noncompliant with his medications. He has refused to have an AICD implant and he has cardiomyopathy and at this time, he is back in the hospital with essentially anasarca with CHF exacerbation. Please refer to the notes dictated by my nurse practitioner. At this time, we will try to diurese the patient. He may need to be seen by Urology as he says he is unable to urinate, but he has so much edema that he cannot find the penis, but apparently he did have a straight cath today while in the emergency room. He has been noncompliant with medications and fluids at home and this has been his major issue. He was in the hospital I believe back in October and December of the last year. He was seen in the office by Dr. Madera also several months ago. I do not know if he had seen him or followed him up since he was in the hospital last admission, but his last echocardiogram shows ejection fraction is about 25% to 30% and again, he has refused to have an AICD implant. He did have bypass surgery about 14 years ago in [place] and mainly, he does not take his medications or he says he runs out of his medications. He apparently lives with a niece and is able to ambulate most of the time. For his past medical history, social history, family history, and review of systems, allergies, medications, and physical exam, please refer the notes dictated by the nurse practitioner. PHYSICAL EXAMINATION: GENERAL: On my physical examination, he is a morbidly obese gentleman, who is actually in no acute distress. He does have what appears to be some degree of shortness of breath obviously, and during the evaluation. He continues to be somewhat short of breath, but is alert, is oriented. He is difficult to understand but does answer most of the questions. Some of them, I wonder if they are actually appropriate. VITAL SIGNS: Blood pressure is 94/58, his temperature is 97.8, heart rate is 80 and this appears to be a sinus rhythm, respiratory rate is 23, O2 saturation is 95%. HEENT: Unremarkable. CHEST: Decreased breath sounds throughout, but due to poor inspiratory effort. CARDIOVASCULAR: He has a slight tachycardia at this time, but appears to be regular. I did not hear any irregularities otherwise. He did have a soft murmur at the upper sternal border, but difficult to auscultate due to the obesity. ABDOMEN: Morbid obesity of the abdomen and also he has anasarca up to the scrotal area and above into the lower abdominal wall and back. EXTREMITIES: Showed 3+ lower extremity chronic edema. Pedal pulses are not palpable by this examiner. NEUROLOGICAL: The patient does not have any gross focal motor deficits. LABORATORY DATA: Shows a WBC of 15.9, hemoglobin 13.1 with hematocrit of 42.8, and a platelet count of 224,000. His cardiac enzymes are indeterminate with a troponin I slightly elevated, which could indicate a qqg-CO-[id number] elevation myocardial infarction type 2. His MB was 2.6, but troponin I was 1.82 on admission that increased up to 1.84 and the last one was 1.77. His BNP was elevated at 1913. Sodium was 135 with a potassium of 4.7, BUN was 21, creatinine of 1.23, and blood sugar was 214. His alkaline phosphatase was 162, AST was 39. Hemoglobin was 13.1, WBC of 15.9, and platelet count was 224,000. His urinalysis did show some 7 to 9 wbc's in the urine, but there were no bacteria noted, and he did have some 2+ blood in the urine. IMPRESSION: 1. Congestive heart failure exacerbation due to cardiomyopathy and noncompliance with medications and fluid intake. We will try to diurese the patient if at all possible. With his decreased ejection fraction, he may need inotropic support in order to be able to adequately urinate to lose this fluid. 2. History of coronary artery disease. He is status post bypass surgery. The cardiac enzymes are slightly elevated, but this may be due to the CHF exacerbation. We will obtain an echocardiogram for evaluation of the left ventricular systolic function. We will need to re-discuss about the AICD with this patient since he does have a cardiomyopathy. 3. I believe he has diabetes. This will be dealt with by the primary care service. 4. Further care of the patient will depend on the results of the echocardiogram. He also was placed on a rule out COVID-19. Job ID: [id number]
[2019-09-16] MEDS ORDERED: Atorvastatin Calcium 40 MG TAB PO SCH (21:00)
== END 2019-09-15 16:02 | disposition short-term general hospital (02) ==
LOC: EDBD → EDUNIT# 11:11 → ERS 11:11 → UNDOADMIN 16:11 → 2SW 16:11
DX: Z03.818 Encounter for observation for suspected exposure to other biological agents ruled out (principal); A41.9 Sepsis, unspecified organism; I21.4 Non-ST elevation (NSTEMI) myocardial infarction; I50.9 Heart failure, unspecified; E11.9 Type 2 diabetes mellitus without complications; E78.5 Hyperlipidemia, unspecified; I11.0 Hypertensive heart disease with heart failure; F41.9 Anxiety disorder, unspecified; F31.9 Bipolar disorder, unspecified; F20.9 Schizophrenia, unspecified
CPT/HCPCS: 36415; 36416; 71045; 71260; 74177; 80053; 81003; 81015; 82553; 83605; 83690; 83880; 84484; 85025; 85610; 85730; 86850; 86900; 86901; 87040; 87086; 87635; 87804; 93005; 94760; 96361; 96365; 96368; 96372; J0696; J1650; J1956; J3370; U0003

== ENCOUNTER 2019-09-15 20:56 | Inpatient (IN) | payer MEDICARE, OTHER ==
[2019-09-15] MEDS ORDERED: Acetaminophen 325 MG TAB PO PRN (23:33)
[2019-09-15] MEDS ORDERED: Dextrose 5% in Water 1,000 ML IV PRN (23:34)
[2019-09-15] MEDS ORDERED: Dextrose 50% Abboject 50 ML SYRINGE IVP PRN (23:34)
[2019-09-15] MEDS ORDERED: hydrALAZINE 20 MG/ML VIAL SLOW IVP PRN (23:35)
[2019-09-15] MEDS ORDERED: Guaifenesin DM 100-10/5 ML UDCUP PO PRN (23:35)
[2019-09-15] MEDS ORDERED: Ondansetron ODT 4 MG TAB SL PRN (23:38)
[2019-09-15] MEDS ORDERED: Ondansetron PF 4 MG/2 ML Vial SLOW IVP PRN (23:38)
[2019-09-16] MEDS ORDERED: Vancomycin 1 GM in Premix Bag 1 BAG IVPB SCH (00:15)
[2019-09-16 05:10] LABS: Anion Gap 14 mmol/L (10-20); BUN (Urea Nitrogen) 23 mg/dL (8.4-25.7); Calc. Creatinine Clearance 153 mL/min (70-130); Calcium 8.5 mg/dL (7.8-10.44); Carbon Dioxide 20 mmol/L (23-31); Chloride 105 mmol/L (98-107); Estimated GFR-MDRD 66; Glucose 100 mg/dL (80-115); Potassium 4.7 mmol/L (3.5-5.1); Sodium 134 mmol/L (136-145)
[2019-09-16 05:25] LABS: Anisocytosis SLIGHT = 6-15 cells (100X) (0-5/hpf); Band 7 % (5-11); Eosinophils 7 % (0-10); Hemoglobin 11.7 g/dL (14.0-18.0); Lymphocytes 14 % (21-51); MDiff Complete? YES; Mean Corpuscular HGB CONC 30.6 g/dL (32.0-36.0); Mean Corpuscular Hemoglobin 27.5 pg (27.0-31.0); Mean Corpuscular Volume 89.9 fL (78.0-98.0); Mean Platelet Volume 9.9 fL (7.4-10.4); Monocytes 8 % (0-10); Neutrophil 64 % (42-75); Platelet Count 151 thou/uL (130-400); RBC Distribution Width 18.1 % (11.5-14.5); Red Blood Cell (RBC) Count 4.24 mill/uL (4.70-6.10); White Blood Cell (WBC) Count 7.1 thou/uL (4.8-10.8)
[2019-09-16] MEDS ORDERED: Furosemide 80 MG TAB PO SCH (09:00)
[2019-09-16] MEDS ORDERED: Carvedilol 3.125 MG TAB PO SCH (09:00)
--- NOTE | 2019-09-16 09:08 | PDOC.HOSPP ---
- Subjective Encounter Date: 09/16/19 Encounter Time: 09:06 Subjective: Mr. Fu was seen today in follow-up of Pneumonia. He says he is feeling a little better this morning. His cough has improved, and he is less short of breath. - Objective Vital Signs & Weight: Vital Signs (12 hours) Temp Pulse Resp BP Pulse Ox 09/16/19 05:50 97.8 F 69 20 100/60 96 09/16/19 01:42 69 20 90/50 L Weight Weight 352 lb 4.8 oz I&O: 09/15/19 09/16/19 09/17/19 06:59 06:59 06:59 Intake Total 670 Output Total 400 Balance 270 Result Diagrams: 09/16/19 04:32 09/16/19 04:32 Additional Labs: Accuchecks 09/16/19 05:55 POC Glucose 96 - Exam Eye: PERRL Heart: RRR, no murmur, no gallops, no rubs, normal peripheral pulses Respiratory: no wheezes (+ rales at both bases), no ronchi, rales Gastrointestinal: soft, non-tender, non-distended, normal bowel sounds, no palpable masses, no hepatomegaly Extremities: 2+ LE edema (chronic venous stasis changes) Hosp A/P (1) Pneumonia, community acquired Code(s): J18.9 - PNEUMONIA, UNSPECIFIED ORGANISM Status: Acute (2) Acute and chronic respiratory failure Code(s): J96.20 - ACUTE AND CHR RESP FAILURE, UNSP W HYPOXIA OR HYPERCAPNIA Status: Acute (3) Morbid obesity with BMI of 50.0-59.9, adult Code(s): E66.01 - M[place] (SEVERE) OBESITY DUE TO EXCESS CALORIES; Z68.43 - BODY MASS INDEX (BMI) 50.0-59.9, ADULT Status: Acute (4) CAD (coronary artery disease) Code(s): I25.10 - ATHSCL HEART DISEASE OF [place] CORONARY ARTERY W/O ANG PCTRS Status: Chronic Qualifiers: (5) Diabetes type 2, controlled Code(s): E11.9 - TYPE 2 DIABETES MELLITUS WITHOUT COMPLICATIONS Status: Chronic (6) HTN (hypertension) Code(s): I10 - ESSENTIAL (PRIMARY) HYPERTENSION Status: Chronic Qualifiers: - Plan * Acute on chronic respiratory failure due to community acquired pneumonia- subjectively improved * Continue Levaquin IV * Acute on chronic CHF- his blood pressure is still on the lower side, will hold off on IV Lasix at this time * Follow-up on Echo once COVID ruled out * HTN- blood pressure is on the lower end of normal ( 100 systolic) * DM- blood gucose is stable
[2019-09-16] MEDS: glipiZIDE 5 MG TAB PO SCH ×2 (09:16→18:21)
[2019-09-16] MEDS: Enoxaparin Sodium 120 MG/0.8 ML SYRINGE SC SCH ×2 (09:16→21:29)
[2019-09-16 11:53] LABS: Troponin I 0.914 ng/mL (< 0.028)
[2019-09-16] MEDS: Vancomycin 1 GM in Premix Bag 1 BAG IVPB SCH (12:40)
--- NOTE | 2019-09-16 12:59 | PDOC.CPN ---
- Subjective Date: 09/16/19 Time: 13:12 Interval history: The pt seen and examined. No overnight events. No cardiac complaints. - Objective Allergies/Adverse Reactions: Allergies Allergy/AdvReac Type Severity Reaction Status Date / Time No Known Drug Allergies Allergy Verified 08/11/19 21:36 Visit Medications: Current Medications Acetaminophen (Tylenol) 650 mg PO Q4H PRN PRN Reason: Headache/Fever or Pain 1-3 Ammonium Lactate (Laclotion) 0 gm TOP BID [facility] Carvedilol (Coreg) 3.125 mg PO TID [facility] Last Admin: 09/16/19 09:16 Dose: 3.125 mg Dextrose/Water (Dextrose 50%) 25 gm IVP PRN PRN PRN Reason: HYPOGLYCEMIA PROTOCOL Enoxaparin Sodium (Lovenox) 120 mg SC 0900,2100 [facility] Last Admin: 09/16/19 09:16 Dose: 120 mg Furosemide (Lasix) 80 mg PO 0900,1400 [facility] Last Admin: 09/16/19 09:16 Dose: 80 mg Glipizide (Glucotrol) 5 mg PO BID-WM [facility] Last Admin: 09/16/19 09:16 Dose: 5 mg Glucagon (Glucagon) 1 mg IM PRN PRN PRN Reason: HYPOGLYCEMIA PROTOCOL Guaifenesin/Dextromethorphan (Robitussin Dm) 15 ml PO Q4H PRN PRN Reason: Cough Hydralazine HCl (Apresoline) 10 mg SLOW IVP Q4H PRN PRN Reason: SBP > 180 AND HR < 70 Dextrose/Water (D5w) 1,000 mls @ 0 mls/hr IV INF PRN PRN Reason: HYPOGLYCEMIA PROTOCOL Levofloxacin 750 mg/ Device 150 mls @ 100 mls/hr IVPB 2100 [facility] Vancomycin HCl 1 gm/ Device 200 mls @ 200 mls/hr IVPB 0100,1300 [facility] Last Admin: 09/16/19 12:40 Dose: 200 mls Insulin Human Lispro (Humalog) 0 units SC .MODERATE SLIDING SC PRN; Protocol PRN Reason: MODERATE SLIDING SCALE Insulin Human Lispro (Humalog) 0 units SC .BEDTIME SLIDING SC PRN; Protocol PRN Reason: BEDTIME SLIDING SCALE Ondansetron HCl (Zofran Odt) 4 mg SL Q6H PRN PRN Reason: Nausea/Vomiting Ondansetron HCl (Zofran) 4 mg SLOW IVP Q6H PRN PRN Reason: Nausea/Vomiting Vital Signs & Weight: Vital Signs Temp Pulse Resp BP Pulse Ox 09/16/19 09:15 96.0 F L 64 20 114/58 L 96 09/16/19 05:50 97.8 F 69 20 100/60 96 09/16/19 01:42 69 20 90/50 L Weight 352 lb 4.8 oz - Physical Exam General: alert & oriented x3 HEENT: mucus membranes moist Neck: supple neck Cardiac: regular rate and rhythm, S1/S2 Lungs: decreased breath sounds, wheezes Neuro: cranial nerve 2-12 intact - Labs Result Diagrams: 09/16/19 04:32 09/16/19 04:32 Troponin/CKMB Troponin I 0.914 ng/mL (< 0.028) H* 09/16/19 10:59 - Telemetry Sinus rhythms and dysrhythmias: sinus rhythm - Assessment/Plan Assessment/Plan: 1. Acute on Chronic combined HF with EF 25-30% in 04/2018 - Lasix 40mg IV x1 this PM and resume Lasix 80mg PO BID; may start Dobutamine drip? 2. Community acquired PNA 3. Ischemic CMY - He declined AICD placement again today 4. CAD with hx of CABG in 2004 - asymptomatic; on Coreg, ASA, and Lipitor 5. HTN - will decrease Coreg from TID to BID due to hypotensive 6. DM type 2 7. HLD 8. Anemia 9. Urinary retention? - if the pt cannot void well by 1600, possible bladder scan MAR reviewed * Dr Madera's pt * Echo is pending due to COVID 19 r/o
[2019-09-16] MEDS ORDERED: Furosemide 40 MG/4 ML VIAL SLOW IVP SCH (14:00)
[2019-09-16] MEDS: Carvedilol 3.125 MG TAB PO SCH (18:21)
[2019-09-16] MEDS: Atorvastatin Calcium 40 MG TAB PO SCH (21:29)
[2019-09-16] MEDS: Ammonium Lactate 12% Lotion 225 GM BOT TOP SCH (21:30)
[2019-09-17] MEDS: Vancomycin 1 GM in Premix Bag 1 BAG IVPB SCH ×2 (01:01→13:05)
[2019-09-17] MEDS: Furosemide 40 MG/4 ML VIAL SLOW IVP SCH ×2 (05:28→13:05)
[2019-09-17] MEDS: Aspirin 81 mg Enteric Coated Tablet PO SCH (08:58)
[2019-09-17] MEDS: Carvedilol 3.125 MG TAB PO SCH ×2 (08:58→16:05)
[2019-09-17] MEDS: glipiZIDE 5 MG TAB PO SCH ×2 (08:58→16:05)
[2019-09-17] MEDS: Enoxaparin Sodium 120 MG/0.8 ML SYRINGE SC SCH ×2 (08:58→20:39)
[2019-09-17] MEDS: Ammonium Lactate 12% Lotion 225 GM BOT TOP SCH ×2 (08:59→20:38)
--- NOTE | 2019-09-17 15:39 | PDOC.HOSPP ---
- Subjective Encounter Date: 09/17/19 Encounter Time: 15:38 Subjective: Mr. Fu was seen today in follow-up of pneumonia and CHF exacerbation. He is beginning to feel better. His cough has improved. He is less short of breath at rest, but continues to have some on exertion. - Objective Vital Signs & Weight: Vital Signs (12 hours) Temp Pulse Resp BP BP Pulse Ox 09/17/19 11:19 96.1 F L 75 23 H 113/62 93 L 09/17/19 08:59 97.0 F L 76 24 H 115/57 L 94 L Weight Weight 355 lb 4.8 oz I&O: 09/16/19 09/17/19 09/18/19 06:59 06:59 06:59 Intake Total 670 2050 Output Total 400 700 Balance 270 1350 Result Diagrams: 09/16/19 04:32 09/16/19 04:32 Additional Labs: Accuchecks 09/17/19 09/17/19 09/16/19 13:27 05:40 21:44 POC Glucose 181 H 146 H 126 H 09/16/19 15:40 POC Glucose 168 H Hospitalist ROS - Medication Medications: Active Medications Generic Name Dose Route Start Last Admin Trade Name Freq PRN Reason Stop Dose Admin Ammonium Lactate 0 gm 09/16/19 21:00 09/17/19 08:59 Laclotion TOP 225 gm BID JASON Administration Aspirin 81 mg 09/17/19 09:00 09/17/19 08:58 Ecotrin PO 81 mg DAILY JASON Administration Atorvastatin Calcium 40 mg 09/16/19 21:00 09/16/19 21:29 Lipitor PO 40 mg HS JASON Administration Carvedilol 3.125 mg 09/16/19 17:00 09/17/19 08:58 Coreg PO 3.125 mg BID-WM JASON Administration Enoxaparin Sodium 120 mg 09/16/19 09:00 09/17/19 08:58 Lovenox SC 120 mg 0900,2100 JASON Administration Furosemide 40 mg 09/17/19 06:00 09/17/19 13:05 Lasix SLOW IVP 40 mg 0600,1400 JASON Administration Glipizide 5 mg 09/16/19 08:00 09/17/19 08:58 Glucotrol PO 5 mg BID-WM JASON Administration Levofloxacin 750 mg/ Device 150 mls @ 100 mls/hr 09/16/19 21:00 09/16/19 21: 29 IVPB 150 mls 2100 JASON Administration Vancomycin HCl 1 gm/ Device 200 mls @ 200 mls/hr 09/16/19 13:00 09/17/19 13: 05 IVPB 200 mls 0100,1300 JASON Administration - Exam Eye: PERRL Heart: RRR, no murmur, no gallops, no rubs, normal peripheral pulses Respiratory: rales (+ rales a both bases) Gastrointestinal: soft, non-tender, non-distended, normal bowel sounds, no palpable masses, no hepatomegaly, no splenomegaly Extremities: no cyanosis, 2+ LE edema (+ massive lower extremity edema, with chronic venous stasis changes) Hosp A/P (1) Pneumonia, community acquired Code(s): J18.9 - PNEUMONIA, UNSPECIFIED ORGANISM Status: Acute (2) Acute and chronic respiratory failure Code(s): J96.20 - ACUTE AND CHR RESP FAILURE, UNSP W HYPOXIA OR HYPERCAPNIA Status: Acute (3) Morbid obesity with BMI of 50.0-59.9, adult Code(s): E66.01 - MORBID (SEVERE) OBESITY DUE TO EXCESS CALORIES; Z68.43 - BODY MASS INDEX (BMI) 50.0-59.9, ADULT Status: Acute (4) CAD (coronary artery disease) Code(s): I25.10 - ATHSCL HEART DISEASE OF [place] CORONARY ARTERY W/O ANG PCTRS Status: Chronic Qualifiers: (5) Diabetes type 2, controlled Code(s): E11.9 - TYPE 2 DIABETES MELLITUS WITHOUT COMPLICATIONS Status: Chronic (6) HTN (hypertension) Code(s): I10 - ESSENTIAL (PRIMARY) HYPERTENSION Status: Chronic Qualifiers: - Plan * Acute on chronic respiratory failure due to community acquired pneumonia- improved- will transition him to oral antibiotics * Acute on chronic CHF systolic and diastolic heart failure- his blood pressure is still on the lower side, IV Lasix as tolerated, and he may require a Dobutamine Holiday- will await Cardiology recommendations * HTN- blood pressure continues on the lower end of normal * DM- blood gucose is stable
[2019-09-17] MEDS: DOBUTamine 500 mg/250 ml 250 ML IVPB SCH (18:32)
[2019-09-17] MEDS: Atorvastatin Calcium 40 MG TAB PO SCH (20:38)
[2019-09-18] MEDS: Vancomycin 1 GM in Premix Bag 1 BAG IVPB SCH (00:22)
[2019-09-18] MEDS: DOBUTamine 500 mg/250 ml 250 ML IVPB SCH ×2 (05:17→15:31)
[2019-09-18] MEDS: Furosemide 40 MG/4 ML VIAL SLOW IVP SCH ×2 (05:17→15:01)
[2019-09-18 05:21] LABS: Chloride 103 mmol/L (98-107); Sodium 135 mmol/L (136-145)
[2019-09-18 05:22] LABS: Calcium 8.5 mg/dL (7.8-10.44); Glucose 81 mg/dL (80-115)
[2019-09-18 05:24] LABS: Anion Gap 12 mmol/L (10-20); Carbon Dioxide 24 mmol/L (23-31)
[2019-09-18 05:26] LABS: BUN (Urea Nitrogen) 27 mg/dL (8.4-25.7); Calc. Creatinine Clearance 142 mL/min (70-130); Estimated GFR-MDRD 60
[2019-09-18 07:55] LABS: #Basophils 0.1 thou/uL (0.0-0.2); #Eosinphils 0.3 thou/uL (0.0-0.7); #Lymphocytes 1.4 thou/uL (1.20-3.40); #Monocytes 0.9 thou/uL (0.11-0.59); #Neutrophils 4.3 thou/uL (1.40-6.50); %Basophils 0.8 % (0.0-1.0); %Lymphocytes 20.1 % (21.0-51.0); %Monocytes 12.7 % (0.0-10.0); %Neutrophils 61.4 % (42.0-75.0); Hemoglobin 11.4 g/dL (14.0-18.0); Mean Corpuscular HGB CONC 30.6 g/dL (32.0-36.0); Mean Corpuscular Hemoglobin 27.3 pg (27.0-31.0); Mean Corpuscular Volume 89.1 fL (78.0-98.0); Mean Platelet Volume 9.7 fL (7.4-10.4); Platelet Count 188 thou/uL (130-400); Red Blood Cell (RBC) Count 4.19 mill/uL (4.70-6.10)
[2019-09-18] MEDS: Aspirin 81 mg Enteric Coated Tablet PO SCH (08:42)
[2019-09-18] MEDS: Enoxaparin Sodium 120 MG/0.8 ML SYRINGE SC SCH ×2 (08:42→20:31)
[2019-09-18] MEDS: Ammonium Lactate 12% Lotion 225 GM BOT TOP SCH ×2 (08:42→20:32)
[2019-09-18] MEDS: glipiZIDE 5 MG TAB PO SCH ×2 (08:42→18:18)
--- NOTE | 2019-09-18 14:49 | PDOC.HOSPP ---
- Subjective Encounter Date: 09/18/19 Encounter Time: 14:47 Subjective: Mr. Fu was seen today in follow-up of CHF exacerbation. He says he is doing better. No new complaints. He says he is breathing better. - Objective Vital Signs & Weight: Vital Signs (12 hours) Temp Pulse Resp BP Pulse Ox 09/18/19 10:54 97.7 F 75 20 145/72 H 95 09/18/19 08:50 97.7 F 77 18 158/74 H 96 09/18/19 04:35 96.7 F L 69 15 132/63 98 Weight Admit Weight 358 lb Weight 358 lb I&O: 09/17/19 09/18/19 09/19/19 06:59 06:59 06:59 Intake Total 2050 1400 Output Total 700 1750 Balance 1350 -350 Result Diagrams: 09/18/19 04:23 09/18/19 04:23 Additional Labs: Accuchecks 09/18/19 09/18/19 09/17/19 11:26 05:27 20:47 POC Glucose 118 H 92 164 H 09/17/19 18:46 POC Glucose 157 H Hospitalist ROS - Medication Medications: Active Medications Generic Name Dose Route Start Last Admin Trade Name Freq PRN Reason Stop Dose Admin Ammonium Lactate 0 gm 09/16/19 21:00 09/18/19 08:42 Laclotion TOP 225 gm BID JASON Administration Aspirin 81 mg 09/17/19 09:00 09/18/19 08:42 Ecotrin PO 81 mg DAILY JASON Administration Atorvastatin Calcium 40 mg 09/16/19 21:00 09/17/19 20:38 Lipitor PO 40 mg HS JASON Administration Enoxaparin Sodium 120 mg 09/16/19 09:00 09/18/19 08:42 Lovenox SC 120 mg 0900,2100 JASON Administration Furosemide 40 mg 09/17/19 06:00 09/18/19 05:17 Lasix SLOW IVP 40 mg 0600,1400 JASON Administration Glipizide 5 mg 09/16/19 08:00 09/18/19 08:42 Glucotrol PO 5 mg BID-WM JASON Administration Levofloxacin 750 mg/ Device 150 mls @ 100 mls/hr 09/16/19 21:00 09/17/19 22: 32 IVPB 150 mls 2100 JASON Administration Dobutamine HCl/Dextrose 250 mls @ 24.174 mls/hr 09/17/19 17:00 09/18/19 05:17 Dobutamine 500 Mg/250 Ml IVPB 250 mls INF JASON Administration Protocol 5 MCG/KG/MIN - Exam Eye: PERRL, anicteric sclera Heart: RRR, no murmur, no gallops, no rubs, normal peripheral pulses Respiratory: CTAB (just minimal rales at the bases, no wheezing or rhonchi) Gastrointestinal: soft, non-tender, non-distended, normal bowel sounds, no palpable masses, no hepatomegaly Extremities: 2+ LE edema (2+ pitting edema in both lower extremities, and some mild erythema, and chronic venous stasis changes) Hosp A/P (1) Pneumonia, community acquired Code(s): J18.9 - PNEUMONIA, UNSPECIFIED ORGANISM Status: Acute (2) Acute and chronic respiratory failure Code(s): J96.20 - ACUTE AND CHR RESP FAILURE, UNSP W HYPOXIA OR HYPERCAPNIA Status: Acute (3) Morbid obesity with BMI of 50.0-59.9, adult Code(s): E66.01 - MORBID (SEVERE) OBESITY DUE TO EXCESS CALORIES; Z68.43 - BODY MASS INDEX (BMI) 50.0-59.9, ADULT Status: Acute (4) CAD (coronary artery disease) Code(s): I25.10 - ATHSCL HEART DISEASE OF [place] CORONARY ARTERY W/O ANG PCTRS Status: Chronic Qualifiers: (5) Diabetes type 2, controlled Code(s): E11.9 - TYPE 2 DIABETES MELLITUS WITHOUT COMPLICATIONS Status: Chronic (6) HTN (hypertension) Code(s): I10 - ESSENTIAL (PRIMARY) HYPERTENSION Status: Chronic Qualifiers: - Plan * Acute on chronic respiratory failure due to community acquired pneumonia- improved- continue Levaquin * Acute on chronic CHF systolic and diastolic heart failure- he has been placed on a Dobutamine drip by Cardiology * Continue to monitor, and check electrolytes periodically * HTN- blood pressure is rebounding * DM- blood glucose is stable
[2019-09-18] MEDS: Vancomycin HCl 750 MG in Sodium Chloride 0.9% 250 ML 250 ML IVPB SCH ×3 (15:01→18:18)
[2019-09-18] MEDS: Atorvastatin Calcium 40 MG TAB PO SCH (20:31)
[2019-09-19] MEDS: DOBUTamine 500 mg/250 ml 250 ML IVPB SCH ×3 (01:00→20:37)
[2019-09-19 05:28] LABS: Anion Gap 13 mmol/L (10-20); BUN (Urea Nitrogen) 19 mg/dL (8.4-25.7); Calc. Creatinine Clearance 179 mL/min (70-130); Calcium 8.6 mg/dL (7.8-10.44); Carbon Dioxide 23 mmol/L (23-31); Chloride 105 mmol/L (98-107); Estimated GFR-MDRD 80; Glucose 116 mg/dL (80-115); Potassium 3.9 mmol/L (3.5-5.1); Sodium 137 mmol/L (136-145)
[2019-09-19] MEDS: Furosemide 40 MG/4 ML VIAL SLOW IVP SCH ×2 (05:48→14:41)
[2019-09-19] MEDS: Vancomycin HCl 750 MG in Sodium Chloride 0.9% 250 ML 250 ML IVPB SCH (05:48)
[2019-09-19] MEDS: Aspirin 81 mg Enteric Coated Tablet PO SCH (08:38)
[2019-09-19] MEDS: glipiZIDE 5 MG TAB PO SCH ×2 (08:38→17:39)
[2019-09-19] MEDS: Ammonium Lactate 12% Lotion 225 GM BOT TOP SCH ×2 (08:39→20:36)
[2019-09-19] MEDS: Enoxaparin Sodium 120 MG/0.8 ML SYRINGE SC SCH ×2 (08:39→20:36)
[2019-09-19] MEDS: Saccharomyces boulardii 250 MG CAP PO SCH (08:39)
--- NOTE | 2019-09-19 13:35 | PDOC.HOSPP ---
- Subjective Encounter Date: 09/19/19 Encounter Time: 13:33 Subjective: Mr. Fu was seen today in follow-up of CHF exacerbation. He says he is feeling fine. He denies trouble breathing. He says the cough is " gone". He feels the swelling in his legs has improved. - Objective Vital Signs & Weight: Vital Signs (12 hours) Temp Pulse Resp BP BP Pulse Ox 09/19/19 11:16 97.4 F L 76 18 136/65 93 L 09/19/19 07:22 97.4 F L 80 20 114/59 L 95 09/19/19 04:00 98.5 F 86 18 141/65 H 96 Weight Admit Weight 358 lb Weight 350 lb I&O: 09/18/19 09/19/19 09/20/19 06:59 06:59 06:59 Intake Total 1400 1320 Output Total 1750 6442 443 Balance -350 -1855 -800 Result Diagrams: 09/18/19 04:23 09/19/19 04:47 Additional Labs: Accuchecks 09/19/19 09/19/19 09/18/19 10:51 06:04 20:43 POC Glucose 124 H 115 H 154 H 09/18/19 16:05 POC Glucose 143 H Hospitalist ROS - Medication Medications: Active Medications Generic Name Dose Route Start Last Admin Trade Name Bethany PRN Reason Stop Dose Admin Ammonium Lactate 0 gm 09/16/19 21:00 09/19/19 08:39 Laclotion TOP 225 gm BID JASON Administration Aspirin 81 mg 09/17/19 09:00 09/19/19 08:38 Ecotrin PO 81 mg DAILY JASON Administration Atorvastatin Calcium 40 mg 09/16/19 21:00 09/18/19 20:31 Lipitor PO 40 mg HS JASON Administration Enoxaparin Sodium 120 mg 09/16/19 09:00 09/19/19 08:39 Lovenox SC 120 mg 0900,2100 JASON Administration Furosemide 40 mg 09/17/19 06:00 09/19/19 05:48 Lasix SLOW IVP 40 mg 0600,1400 JASON Administration Glipizide 5 mg 09/16/19 08:00 09/19/19 08:38 Glucotrol PO 5 mg BID-WM JASON Administration Dobutamine HCl/Dextrose 250 mls @ 24.174 mls/hr 09/17/19 17:00 09/19/19 11:14 Dobutamine 500 Mg/250 Ml IVPB 250 mls INF JASON Administration Protocol 5 MCG/KG/MIN Vanessa Gili 250 mg 09/19/19 09:00 09/19/19 08:39 Florastor PO 250 mg DAILY JASON Administration - Exam Eye: PERRL, anicteric sclera Heart: RRR, no murmur, no gallops, no rubs, normal peripheral pulses Respiratory: CTAB, no wheezes, no rales, no ronchi, normal chest expansion, no tachypnea Gastrointestinal: soft, non-tender, non-distended, normal bowel sounds, no palpable masses Extremities: no cyanosis (Chronic venous stasis changes), 2+ LE edema Hosp A/P (1) Acute on chronic systolic heart failure, NYHA class 3 Code(s): I50.23 - ACUTE ON CHRONIC SYSTOLIC (CONGESTIVE) HEART FAILURE Status : Acute (2) Pneumonia, community acquired Code(s): J18.9 - PNEUMONIA, UNSPECIFIED ORGANISM Status: Acute (3) Acute and chronic respiratory failure Code(s): J96.20 - ACUTE AND CHR RESP FAILURE, UNSP W HYPOXIA OR HYPERCAPNIA Status: Acute (4) Morbid obesity with BMI of 50.0-59.9, adult Code(s): E66.01 - MORBID (SEVERE) OBESITY DUE TO EXCESS CALORIES; Z68.43 - BODY MASS INDEX (BMI) 50.0-59.9, ADULT Status: Acute (5) CAD (coronary artery disease) Code(s): I25.10 - ATHSCL HEART DISEASE OF [place] CORONARY ARTERY W/O ANG PCTRS Status: Chronic Qualifiers: (6) Diabetes type 2, controlled Code(s): E11.9 - TYPE 2 DIABETES MELLITUS WITHOUT COMPLICATIONS Status: Chronic (7) HTN (hypertension) Code(s): I10 - ESSENTIAL (PRIMARY) HYPERTENSION Status: Chronic Qualifiers: - Plan * Acute on chronic systolic heart failure- improving on Dobutamine drip. Continue as per Cardiology recommendations * Acute on chronic respiratory failure due to community acquired pneumonia- improved- will change Levaquin to p.o. * Continue to monitor, and check electrolytes periodically * HTN- blood pressure is stable * DM- blood glucose is stable
[2019-09-19] MEDS: Atorvastatin Calcium 40 MG TAB PO SCH (20:36)
[2019-09-20] MEDS: Furosemide 40 MG/4 ML VIAL SLOW IVP SCH ×2 (05:09→13:18)
[2019-09-20 05:51] LABS: Anion Gap 13 mmol/L (10-20); BUN (Urea Nitrogen) 14 mg/dL (8.4-25.7); Calc. Creatinine Clearance 193 mL/min (70-130); Calcium 8.6 mg/dL (7.8-10.44); Carbon Dioxide 23 mmol/L (23-31); Chloride 108 mmol/L (98-107); Estimated GFR-MDRD 87; Glucose 122 mg/dL (80-115); Sodium 139 mmol/L (136-145)
[2019-09-20] MEDS: glipiZIDE 5 MG TAB PO SCH ×2 (08:46→17:38)
[2019-09-20] MEDS: Aspirin 81 mg Enteric Coated Tablet PO SCH (08:46)
[2019-09-20] MEDS: Saccharomyces boulardii 250 MG CAP PO SCH (08:46)
[2019-09-20] MEDS: Enoxaparin Sodium 120 MG/0.8 ML SYRINGE SC SCH ×2 (08:46→20:34)
[2019-09-20] MEDS: Ammonium Lactate 12% Lotion 225 GM BOT TOP SCH ×2 (08:47→20:34)
[2019-09-20] MEDS: DOBUTamine 500 mg/250 ml 250 ML IVPB SCH ×2 (08:47→20:35)
[2019-09-20 12:03] LABS: Potassium 3.7 mmol/L (3.5-5.1)
--- NOTE | 2019-09-20 12:19 | PDOC.HOSPP ---
- Subjective Encounter Date: 09/20/19 Encounter Time: 12:17 Subjective: Mr. Fu was seen today in follow-up of CHF exacerbation. He is feeling much better. He denies chest pain or dyspnea. He feels that the swelling in his arms and legs is getting better. - Objective Vital Signs & Weight: Vital Signs (12 hours) Temp Pulse Resp BP BP Pulse Ox 09/20/19 11:22 97.6 F 87 18 148/69 H 93 L 09/20/19 07:45 97.5 F L 77 23 H 159/76 H 97 09/20/19 04:00 98.9 F 92 18 166/77 H 94 L Weight Admit Weight 358 lb Weight 349 lb 8 oz I&O: 09/19/19 09/20/19 09/21/19 06:59 06:59 06:59 Intake Total 1320 1610 Output Total 3175 4500 Balance -2194 -1472 Result Diagrams: 09/18/19 04:23 09/20/19 11:42 Additional Labs: Accuchecks 09/20/19 09/20/19 09/19/19 10:45 05:12 20:15 POC Glucose 156 H 116 H 139 H 09/19/19 16:19 POC Glucose 141 H Hospitalist ROS - Medication Medications: Active Medications Generic Name Dose Route Start Last Admin Trade Name Bethany PRN Reason Stop Dose Admin Ammonium Lactate 0 gm 09/16/19 21:00 09/20/19 08:47 Laclotion TOP Not Given BID JASON Aspirin 81 mg 09/17/19 09:00 09/20/19 08:46 Ecotrin PO 81 mg DAILY JASON Administration Atorvastatin Calcium 40 mg 09/16/19 21:00 09/19/19 20:36 Lipitor PO 40 mg HS JASON Administration Enoxaparin Sodium 120 mg 09/16/19 09:00 09/20/19 08:46 Lovenox SC 120 mg 0900,2100 JASON Administration Furosemide 40 mg 09/17/19 06:00 09/20/19 05:09 Lasix SLOW IVP 40 mg 0600,1400 JASON Administration Glipizide 5 mg 09/16/19 08:00 09/20/19 08:46 Glucotrol PO 5 mg BID-WM JASON Administration Dobutamine HCl/Dextrose 250 mls @ 24.174 mls/hr 09/17/19 17:00 09/20/19 08:47 Dobutamine 500 Mg/250 Ml IVPB 250 mls INF JASON Administration Protocol 5 MCG/KG/MIN Levofloxacin 500 mg 09/20/19 06:00 09/20/19 05:09 Levaquin PO 500 mg 0600 JASON Administration Saccharomyces Boulardii 250 mg 09/19/19 09:00 09/20/19 08:46 Florastor PO 250 mg DAILY JASON Administration Sodium Chloride 10 ml 09/19/19 09:00 09/20/19 08:46 Flush - Normal Saline IVF 10 ml Q12HR JASON Administration - Exam General Appearance: NAD Eye: PERRL Heart: RRR, no murmur, no gallops, no rubs, normal peripheral pulses Respiratory: CTAB, no wheezes, no rales, no ronchi, normal chest expansion Gastrointestinal: soft, non-tender, non-distended, normal bowel sounds, no palpable masses, no hepatomegaly Extremities: 2+ LE edema (massive edema in both lower extremities) Hosp A/P (1) Acute on chronic systolic heart failure, NYHA class 3 Code(s): I50.23 - ACUTE ON CHRONIC SYSTOLIC (CONGESTIVE) HEART FAILURE Status : Acute (2) Pneumonia, community acquired Code(s): J18.9 - PNEUMONIA, UNSPECIFIED ORGANISM Status: Acute (3) Acute and chronic respiratory failure Code(s): J96.20 - ACUTE AND CHR RESP FAILURE, UNSP W HYPOXIA OR HYPERCAPNIA Status: Acute (4) Morbid obesity with BMI of 50.0-59.9, adult Code(s): E66.01 - MORBID (SEVERE) OBESITY DUE TO EXCESS CALORIES; Z68.43 - BODY MASS INDEX (BMI) 50.0-59.9, ADULT Status: Acute (5) CAD (coronary artery disease) Code(s): I25.10 - ATHSCL HEART DISEASE OF [place] CORONARY ARTERY W/O ANG PCTRS Status: Chronic Qualifiers: (6) Diabetes type 2, controlled Code(s): E11.9 - TYPE 2 DIABETES MELLITUS WITHOUT COMPLICATIONS Status: Chronic (7) HTN (hypertension) Code(s): I10 - ESSENTIAL (PRIMARY) HYPERTENSION Status: Chronic Qualifiers: - Plan * Acute on chronic systolic heart failure- improving on Dobutamine drip. Continue as per Cardiology recommendations * Acute on chronic respiratory failure due to community acquired pneumonia- improved- continue Levaquin * HTN- blood pressure is stable * DM- blood glucose is stable
[2019-09-20] MEDS: Milk Of Magnesia 30 ML UDCUP PO PRN (13:18)
[2019-09-20] MEDS: Carvedilol 3.125 MG TAB PO SCH (17:38)
[2019-09-20] MEDS: HumaLOG 300 UNITS/3 ML VIAL SC PRN (17:39)
[2019-09-20] MEDS: Atorvastatin Calcium 40 MG TAB PO SCH (20:34)
[2019-09-20] MEDS: Docusate 100 MG CAP PO SCH (20:34)
[2019-09-21 05:00] LABS: Anion Gap 11 mmol/L (10-20); BUN (Urea Nitrogen) 14 mg/dL (8.4-25.7); Calc. Creatinine Clearance 202 mL/min (70-130); Calcium 8.5 mg/dL (7.8-10.44); Carbon Dioxide 28 mmol/L (23-31); Chloride 103 mmol/L (98-107); Estimated GFR-MDRD Greater than 90; Glucose 110 mg/dL (80-115); Potassium 3.9 mmol/L (3.5-5.1); Sodium 138 mmol/L (136-145)
[2019-09-21] MEDS: Furosemide 40 MG/4 ML VIAL SLOW IVP SCH ×2 (05:29→14:19)
[2019-09-21] MEDS: Ammonium Lactate 12% Lotion 225 GM BOT TOP SCH ×2 (09:19→21:16)
[2019-09-21] MEDS: Carvedilol 3.125 MG TAB PO SCH ×2 (09:19→16:23)
[2019-09-21] MEDS: glipiZIDE 5 MG TAB PO SCH ×2 (09:19→16:23)
[2019-09-21] MEDS: Saccharomyces boulardii 250 MG CAP PO SCH (09:19)
[2019-09-21] MEDS: Aspirin 81 mg Enteric Coated Tablet PO SCH (09:19)
[2019-09-21] MEDS: Enoxaparin Sodium 120 MG/0.8 ML SYRINGE SC SCH ×2 (09:19→21:15)
[2019-09-21] MEDS: Docusate 100 MG CAP PO SCH ×2 (09:19→21:15)
[2019-09-21] MEDS: DOBUTamine 500 mg/250 ml 250 ML IVPB SCH (09:26)
--- NOTE | 2019-09-21 11:24 | PDOC.HOSPP ---
- Subjective Encounter Date: 09/21/19 Encounter Time: 11:22 Subjective: Mr. Fu was seen today in follow-up of CHF exacerbation. He does not have any complaints today. He denies chest pain or shortness of breath. - Objective Vital Signs & Weight: Vital Signs (12 hours) Temp Pulse Resp BP BP Pulse Ox 09/21/19 07:07 97.7 F 76 18 139/64 97 09/21/19 03:33 98.0 F 78 18 145/79 H 97 09/21/19 00:00 83 138/74 Weight Admit Weight 358 lb Weight 340 lb 8 oz I&O: 09/20/19 09/21/19 09/22/19 06:59 06:59 06:59 Intake Total 1610 1260 Output Total 4500 2110 200 Balance -2890 -850 -200 Result Diagrams: 09/18/19 04:23 09/21/19 04:13 Additional Labs: Accuchecks 09/20/19 09/20/19 09/20/19 21:14 16:59 10:45 POC Glucose 132 H 167 H 156 H Hospitalist ROS - Medication Medications: Active Medications Generic Name Dose Route Start Last Admin Trade Name Freq PRN Reason Stop Dose Admin Ammonium Lactate 0 gm 09/16/19 21:00 09/21/19 09:19 Laclotion TOP 225 gm BID JASON Administration Aspirin 81 mg 09/17/19 09:00 09/21/19 09:19 Ecotrin PO 81 mg DAILY JASON Administration Atorvastatin Calcium 40 mg 09/16/19 21:00 09/20/19 20:34 Lipitor PO 40 mg HS JASON Administration Carvedilol 3.125 mg 09/20/19 17:00 09/21/19 09:19 Coreg PO 3.125 mg BID-WM JASON Administration Docusate Sodium 100 mg 09/20/19 21:00 09/21/19 09:19 Colace PO 100 mg BID JASON Administration Enoxaparin Sodium 120 mg 09/16/19 09:00 09/21/19 09:19 Lovenox SC 120 mg 0900,2100 JASON Administration Furosemide 40 mg 09/17/19 06:00 09/21/19 05:29 Lasix SLOW IVP 40 mg 0600,1400 JASON Administration Glipizide 5 mg 09/16/19 08:00 09/21/19 09:19 Glucotrol PO 5 mg BID-WM JASON Administration Dobutamine HCl/Dextrose 250 mls @ 24.174 mls/hr 09/17/19 17:00 09/21/19 09:26 Dobutamine 500 Mg/250 Ml IVPB 250 mls INF JASON Administration Protocol 5 MCG/KG/MIN Insulin Human Lispro 0 units 09/15/19 23:34 09/20/19 17:39 Humalog SC 2 units .MODERATE SLIDING SC PRN Administration MODERATE SLIDING SCALE Protocol Levofloxacin 500 mg 09/20/19 06:00 09/21/19 05:29 Levaquin PO 500 mg 0600 JASON Administration Magnesium Hydroxide 30 ml 09/20/19 10:08 09/20/19 13:18 Milk Of Magnesium PO 30 ml DAILYPRN PRN Administration Constipation Saccharomyces Boulardii 250 mg 09/19/19 09:00 09/21/19 09:19 Florastor PO 250 mg DAILY JASON Administration Sodium Chloride 10 ml 09/19/19 09:00 09/21/19 09:20 Flush - Normal Saline IVF Not Given Q12HR JASON - Exam Eye: PERRL Heart: RRR, no murmur, no gallops, no rubs, normal peripheral pulses Respiratory: no wheezes, no ronchi, rales (+ rales at the bases) Gastrointestinal: soft, non-tender, non-distended, normal bowel sounds, no palpable masses, no hepatomegaly Extremities: 2+ LE edema (+ bilateral lower extremity edema, and chronic venous stasis changes) Hosp A/P (1) Acute on chronic systolic heart failure, NYHA class 3 Code(s): I50.23 - ACUTE ON CHRONIC SYSTOLIC (CONGESTIVE) HEART FAILURE Status : Acute (2) Pneumonia, community acquired Code(s): J18.9 - PNEUMONIA, UNSPECIFIED ORGANISM Status: Acute (3) Acute and chronic respiratory failure Code(s): J96.20 - ACUTE AND CHR RESP FAILURE, UNSP W HYPOXIA OR HYPERCAPNIA Status: Acute (4) Morbid obesity with BMI of 50.0-59.9, adult Code(s): E66.01 - MORBID (SEVERE) OBESITY DUE TO EXCESS CALORIES; Z68.43 - BODY MASS INDEX (BMI) 50.0-59.9, ADULT Status: Acute (5) CAD (coronary artery disease) Code(s): I25.10 - ATHSCL HEART DISEASE OF [place] CORONARY ARTERY W/O ANG PCTRS Status: Chronic Qualifiers: (6) Diabetes type 2, controlled Code(s): E11.9 - TYPE 2 DIABETES MELLITUS WITHOUT COMPLICATIONS Status: Chronic (7) HTN (hypertension) Code(s): I10 - ESSENTIAL (PRIMARY) HYPERTENSION Status: Chronic Qualifiers: - Plan * Acute on chronic systolic heart failure- improving- plan is to wean the dobutamine drip * Continue Lasix adn Carvediolol * He has refused Life vest and AICD in the past * Acute on chronic respiratory failure due to community acquired pneumonia- improved- discontinue Levaquin after tomorrow's dose * HTN- blood pressure is stable * DM- blood glucose is stable
[2019-09-21] MEDS ORDERED: DOBUTamine 500 mg/250 ml 250 ML IVPB SCH (11:45)
[2019-09-21] MEDS: Atorvastatin Calcium 40 MG TAB PO SCH (21:15)
[2019-09-21] MEDS: Lisinopril 2.5 MG TAB PO SCH (21:15)
[2019-09-21] MEDS: HumaLOG 300 UNITS/3 ML VIAL SC PRN (21:17)
[2019-09-22 04:53] LABS: Anion Gap 12 mmol/L (10-20); BUN (Urea Nitrogen) 16 mg/dL (8.4-25.7); Calc. Creatinine Clearance 186 mL/min (70-130); Calcium 8.4 mg/dL (7.8-10.44); Carbon Dioxide 27 mmol/L (23-31); Chloride 103 mmol/L (98-107); Estimated GFR-MDRD 86; Glucose 122 mg/dL (80-115); Potassium 4.1 mmol/L (3.5-5.1); Sodium 138 mmol/L (136-145)
[2019-09-22] MEDS: Furosemide 40 MG/4 ML VIAL SLOW IVP SCH ×2 (05:44→14:15)
[2019-09-22] MEDS: Lisinopril 2.5 MG TAB PO SCH ×2 (08:16→21:04)
[2019-09-22] MEDS: glipiZIDE 5 MG TAB PO SCH ×2 (08:18→16:49)
[2019-09-22] MEDS: Aspirin 81 mg Enteric Coated Tablet PO SCH (08:18)
[2019-09-22] MEDS: Saccharomyces boulardii 250 MG CAP PO SCH (08:18)
[2019-09-22] MEDS: Carvedilol 3.125 MG TAB PO SCH ×2 (08:18→16:49)
[2019-09-22] MEDS: Ammonium Lactate 12% Lotion 225 GM BOT TOP SCH ×2 (08:19→21:07)
[2019-09-22] MEDS: Enoxaparin Sodium 120 MG/0.8 ML SYRINGE SC SCH (08:19)
[2019-09-22] MEDS: Docusate 100 MG CAP PO SCH ×2 (08:19→21:04)
[2019-09-22 10:01] LABS: ALT (SGPT) 16 U/L (8-55); AST (SGOT) 35 U/L (5-34); Albumin 2.7 g/dL (3.4-4.8); Alkaline Phosphatase 123 U/L (40-110); Bilirubin, Direct 0.5 mg/dL (0.1-0.3); Bilirubin, Total 0.9 mg/dL (0.2-1.2); Protein, Total 6.9 g/dL (5.8-8.1)
[2019-09-22] MEDS: HumaLOG 300 UNITS/3 ML VIAL SC PRN (12:28)
--- NOTE | 2019-09-22 13:19 | PDOC.HOSPP ---
- Subjective Encounter Date: 09/22/19 Encounter Time: 08:55 Subjective: pt up in bed no complains - Objective Vital Signs & Weight: Vital Signs (12 hours) Temp Pulse Resp BP BP Pulse Ox 09/22/19 11:18 97.6 F 69 20 131/64 93 L 09/22/19 08:16 70 09/22/19 07:12 97.5 F L 72 20 118/57 L 95 09/22/19 04:14 93 L 09/22/19 03:14 98.3 F 73 20 127/63 95 Weight Admit Weight 358 lb Weight 338 lb 14.4 oz I&O: 09/21/19 09/22/19 09/23/19 06:59 06:59 06:59 Intake Total 1260 1192 417 Output Total 2110 925 265 Balance -850 267 152 Result Diagrams: 09/18/19 04:23 09/22/19 04:33 Additional Labs: Accuchecks 09/22/19 09/22/19 09/21/19 10:36 05:49 20:31 POC Glucose 197 H 113 H 207 H 09/21/19 17:08 POC Glucose 161 H Hospitalist ROS - Review of Systems Cardiovascular: denies: chest pain, palpitations, orthopnea, paroxysmal noc. dyspnea, edema, light headedness, other Gastrointestinal: denies: nausea, vomiting, abdominal pain, diarrhea, constipation, melena, hematochezia, other Genitourinary: denies: dysuria, frequency, incontinence, hematuria, retention, other - Medication Medications: Active Medications Generic Name Dose Route Start Last Admin Trade Name Martinq PRN Reason Stop Dose Admin Ammonium Lactate 0 gm 09/16/19 21:00 09/22/19 08:19 Laclotion TOP 225 gm BID JASON Administration Aspirin 81 mg 09/17/19 09:00 09/22/19 08:18 Ecotrin PO 81 mg DAILY JASON Administration Atorvastatin Calcium 40 mg 09/16/19 21:00 09/21/19 21:15 Lipitor PO 40 mg HS JASON Administration Carvedilol 3.125 mg 09/20/19 17:00 09/22/19 08:18 Coreg PO 3.125 mg BID-WM JASON Administration Docusate Sodium 100 mg 09/20/19 21:00 09/22/19 08:19 Colace PO 100 mg BID JASON Administration Enoxaparin Sodium 120 mg 09/16/19 09:00 09/22/19 08:19 Lovenox SC 120 mg 0900,2100 JASON Administration Furosemide 40 mg 09/17/19 06:00 09/22/19 05:44 Lasix SLOW IVP 40 mg 0600,1400 JASON Administration Glipizide 5 mg 09/16/19 08:00 09/22/19 08:18 Glucotrol PO 5 mg BID-WM JASON Administration Insulin Human Lispro 0 units 09/15/19 23:34 09/22/19 12:28 Humalog SC 2 units .MODERATE SLIDING SC PRN Administration MODERATE SLIDING SCALE Protocol Insulin Human Lispro 0 units 09/15/19 23:34 09/21/19 21:17 Humalog SC 2 unit .BEDTIME SLIDING SC PRN Administration BEDTIME SLIDING SCALE Protocol Levofloxacin 500 mg 09/20/19 06:00 09/22/19 05:44 Levaquin PO 500 mg 0600 JASON Administration Lisinopril 2.5 mg 09/21/19 21:00 09/22/19 08:16 Zestril PO 2.5 mg BID JASON Administration Magnesium Hydroxide 30 ml 09/20/19 10:08 09/20/19 13:18 Milk Of Magnesium PO 30 ml DAILYPRN PRN Administration Constipation Saccharomyces Boulardii 250 mg 09/19/19 09:00 09/22/19 08:18 Florastor PO 250 mg DAILY JASON Administration Sodium Chloride 10 ml 09/19/19 09:00 09/22/19 08:19 Flush - Normal Saline IVF 10 ml Q12HR JASON Administration Sodium Chloride 10 ml 09/19/19 07:53 09/21/19 21:23 Flush - Normal Saline IVF 10 ml PRN PRN Administration Saline Flush - Exam Neck: negative: supple, symmetric, no JVD, no thyromegaly, no lymphadenopathy, no carotid bruit, JVD Heart: negative: RRR, no murmur, no gallops, no rubs, normal peripheral pulses, irregular, diminshed peripheral pulses, murmur present, II/IV, III/IV Respiratory - other findings: mild crackles to bases Gastrointestinal: negative: soft, non-tender, non-distended, normal bowel sounds , no palpable masses, no hepatomegaly, no splenomegaly, no bruit, no guarding, no rigidity, tender to palpation, distended, diminished bowl sounds, voluntary guarding Extremities: 2+ LE edema Neurological: negative: cranial nerve grossly intact, normal sensation to touch , no weakness, no focal deficits, no new deficit, facial droop, hemiplegia, speech deficit, vision deficit Hosp A/P (1) Acute on chronic systolic heart failure, NYHA class 3 Code(s): I50.23 - ACUTE ON CHRONIC SYSTOLIC (CONGESTIVE) HEART FAILURE Status : Acute (2) Morbid obesity with BMI of 50.0-59.9, adult Code(s): E66.01 - MORBID (SEVERE) OBESITY DUE TO EXCESS CALORIES; Z68.43 - BODY MASS INDEX (BMI) 50.0-59.9, ADULT Status: Acute (3) CAD (coronary artery disease) Code(s): I25.10 - ATHSCL HEART DISEASE OF [place] CORONARY ARTERY W/O ANG PCTRS Status: Chronic Qualifiers: (4) Diabetes type 2, controlled Code(s): E11.9 - TYPE 2 DIABETES MELLITUS WITHOUT COMPLICATIONS Status: Chronic (5) Dyslipidemia Code(s): E78.5 - HYPERLIPIDEMIA, UNSPECIFIED Status: Chronic (6) HTN (hypertension) Code(s): I10 - ESSENTIAL (PRIMARY) HYPERTENSION Status: Chronic Qualifiers: (7) Lymph node disorder Code(s): I89.9 - NONINFECTIVE DISORDER OF LYMPHATIC VESSELS AND NODES, UNSP Status: Acute (8) Pneumonia, community acquired Code(s): J18.9 - PNEUMONIA, UNSPECIFIED ORGANISM Status: Acute - Plan pt's lower ext wrapped, will continue Lasix and dobutamine drip. Per notes pt has refused AICD and does not want a life vest. multiple lymph nodes noted in ctabd/pel will check ldh. pt denies any night sweat nor any weight loss. He will most likely need a follow up outpatient. will stop abx. will get cbc. per nursing he had some hemoptysis. will change his full dose lovonox to dvt ppx.
[2019-09-22 13:47] LABS: #Basophils 0.1 thou/uL (0.0-0.2); #Eosinphils 0.4 thou/uL (0.0-0.7); #Lymphocytes 1.1 thou/uL (1.20-3.40); #Monocytes 0.8 thou/uL (0.11-0.59); #Neutrophils 4.1 thou/uL (1.40-6.50); %Basophils 1.1 % (0.0-1.0); %Eosinophils 5.6 % (0.0-10.0); %Lymphocytes 16.8 % (21.0-51.0); %Monocytes 12.1 % (0.0-10.0); %Neutrophils 64.4 % (42.0-75.0); Hemoglobin 11.8 g/dL (14.0-18.0); Mean Corpuscular HGB CONC 30.6 g/dL (32.0-36.0); Mean Corpuscular Hemoglobin 27.4 pg (27.0-31.0); Mean Corpuscular Volume 89.6 fL (78.0-98.0); Mean Platelet Volume 10.6 fL (7.4-10.4); Platelet Count 191 thou/uL (130-400); RBC Distribution Width 18.4 % (11.5-14.5); White Blood Cell (WBC) Count 6.4 thou/uL (4.8-10.8)
--- NOTE | 2019-09-22 14:14 | PDOC.CPN ---
- Subjective Date: 09/22/19 Time: 14:12 Interval history: Breathing at baseline. - Review of Systems General: denies: fever/chills, weight/appetite/sleep changes, night sweats, fatigue Respiratory: reports: exercise intolerance. denies: cough, congestion, shortness of breath Cardiovascular: reports: edema. denies: chest pain, palpitation, paroxysmal nocturnal dyspnea, orthopnea Gastrointestinal: denies: nausea, vomiting, diarrhea, constipation, abd pain, GI bleeding Musculoskeletal: denies: pain, tenderness, stiffness, swelling, arthritis/ arthralgias Neurological: denies: numbness, syncope, seizure, weakness - Objective Allergies/Adverse Reactions: Allergies Allergy/AdvReac Type Severity Reaction Status Date / Time No Known Drug Allergies Allergy Verified 08/11/19 21:36 Visit Medications: Current Medications Acetaminophen (Tylenol) 650 mg PO Q4H PRN PRN Reason: Headache/Fever or Pain 1-3 Ammonium Lactate (Laclotion) 0 gm TOP BID [facility] Last Admin: 09/22/19 08:19 Dose: 225 gm Aspirin (Ecotrin) 81 mg PO DAILY [facility] Last Admin: 09/22/19 08:18 Dose: 81 mg Atorvastatin Calcium (Lipitor) 40 mg PO HS [facility] Last Admin: 09/21/19 21:15 Dose: 40 mg Carvedilol (Coreg) 3.125 mg PO BID-[facility] Last Admin: 09/22/19 08:18 Dose: 3.125 mg Dextrose/Water (Dextrose 50%) 25 gm IVP PRN PRN PRN Reason: HYPOGLYCEMIA PROTOCOL Docusate Sodium (Colace) 100 mg PO BID [facility] Last Admin: 09/22/19 08:19 Dose: 100 mg Enoxaparin Sodium (Lovenox) 40 mg SC 0900 [facility] Furosemide (Lasix) 40 mg SLOW IVP 0600,1400 [facility] Last Admin: 09/22/19 05:44 Dose: 40 mg Glipizide (Glucotrol) 5 mg PO BID-[facility] Last Admin: 09/22/19 08:18 Dose: 5 mg Glucagon (Glucagon) 1 mg IM PRN PRN PRN Reason: HYPOGLYCEMIA PROTOCOL Guaifenesin/Dextromethorphan (Robitussin Dm) 15 ml PO Q4H PRN PRN Reason: Cough Hydralazine HCl (Apresoline) 10 mg SLOW IVP Q4H PRN PRN Reason: SBP > 180 AND HR < 70 Dextrose/Water (D5w) 1,000 mls @ 0 mls/hr IV INF PRN PRN Reason: HYPOGLYCEMIA PROTOCOL Dobutamine HCl/Dextrose (Dobutamine 500 Mg/250 Ml) 250 mls @ 24.174 mls/hr IVPB INF JAOSN; Protocol Insulin Human Lispro (Humalog) 0 units SC .MODERATE SLIDING SC PRN; Protocol PRN Reason: MODERATE SLIDING SCALE Last Admin: 09/22/19 12:28 Dose: 2 units Insulin Human Lispro (Humalog) 0 units SC .BEDTIME SLIDING SC PRN; Protocol PRN Reason: BEDTIME SLIDING SCALE Last Admin: 09/21/19 21:17 Dose: 2 unit Lisinopril (Zestril) 2.5 mg PO BID [facility] Last Admin: 09/22/19 08:16 Dose: 2.5 mg Magnesium Hydroxide (Milk Of Magnesium) 30 ml PO DAILYPRN PRN PRN Reason: Constipation Last Admin: 09/20/19 13:18 Dose: 30 ml Ondansetron HCl (Zofran Odt) 4 mg SL Q6H PRN PRN Reason: Nausea/Vomiting Ondansetron HCl (Zofran) 4 mg SLOW IVP Q6H PRN PRN Reason: Nausea/Vomiting Saccharomyces Boulardii (Florastor) 250 mg PO DAILY [facility] Last Admin: 09/22/19 08:18 Dose: 250 mg Sodium Chloride (Flush - Normal Saline) 10 ml IVF Q12HR [facility] Last Admin: 09/22/19 08:19 Dose: 10 ml Sodium Chloride (Flush - Normal Saline) 10 ml IVF PRN PRN PRN Reason: Saline Flush Last Admin: 09/21/19 21:23 Dose: 10 ml Vital Signs & Weight: Vital Signs Temp Pulse Resp BP BP Pulse Ox 09/22/19 11:18 97.6 F 69 20 131/64 93 L 09/22/19 08:16 70 09/22/19 07:12 97.5 F L 72 20 118/57 L 95 09/22/19 04:14 93 L 09/22/19 03:14 98.3 F 73 20 127/63 95 Admit Weight 358 lb Weight 338 lb 14.4 oz - Physical Exam General: alert & oriented x3 HEENT: mucus membranes moist Neck: supple neck Cardiac: irregularly regular Lungs: normal breath sounds Neuro: no lateralizing findings Abdomen: active bowel sounds Extremities: 2+ LE edema Skin: clear Musculoskeletal: no pain - Labs Result Diagrams: 09/22/19 09:34 09/22/19 04:33 Troponin/CKMB Troponin I 0.914 ng/mL (< 0.028) H* 09/16/19 10:59 - Telemetry Supraventricular conduction: atrial fibrillation - Assessment/Plan Assessment/Plan: 1. Ischemic CM EF at 15-20% 2. Acute on chronic systolic heart failure 3. NSVT, refusing AICD placement. 4. PAT 5. S/P CABG 6. NSTEMI type 2 [place] 7. Non compliance. 8. Obesity PLAN: - Continue to wean dobutamine. - Continue IV diuresis .
[2019-09-22] MEDS: Atorvastatin Calcium 40 MG TAB PO SCH (21:04)
[2019-09-23 05:32] LABS: Anion Gap 13 mmol/L (10-20); BUN (Urea Nitrogen) 19 mg/dL (8.4-25.7); Calc. Creatinine Clearance 171 mL/min (70-130); Calcium 8.3 mg/dL (7.8-10.44); Carbon Dioxide 26 mmol/L (23-31); Chloride 102 mmol/L (98-107); Estimated GFR-MDRD 79; Glucose 138 mg/dL (80-115); Sodium 137 mmol/L (136-145)
[2019-09-23] MEDS: Furosemide 40 MG/4 ML VIAL SLOW IVP SCH ×2 (06:20→14:50)
[2019-09-23] MEDS: Enoxaparin Sodium 40 MG/0.4 ML SYRINGE SC SCH (08:28)
[2019-09-23] MEDS: glipiZIDE 5 MG TAB PO SCH ×2 (08:28→17:24)
[2019-09-23] MEDS: Carvedilol 3.125 MG TAB PO SCH ×2 (08:28→17:24)
[2019-09-23] MEDS: Docusate 100 MG CAP PO SCH ×2 (08:28→20:36)
[2019-09-23] MEDS: Aspirin 81 mg Enteric Coated Tablet PO SCH (08:29)
[2019-09-23] MEDS: Saccharomyces boulardii 250 MG CAP PO SCH (08:29)
[2019-09-23] MEDS: Lisinopril 2.5 MG TAB PO SCH ×2 (08:29→20:36)
[2019-09-23] MEDS: Ammonium Lactate 12% Lotion 225 GM BOT TOP SCH ×2 (08:32→20:37)
[2019-09-23] MEDS ORDERED: Atorvastatin Calcium 40 MG TAB PO SCH (09:00)
[2019-09-23] MEDS: HumaLOG 300 UNITS/3 ML VIAL SC PRN ×2 (11:43→17:23)
--- NOTE | 2019-09-23 14:17 | PDOC.CPN ---
- Subjective Date: 09/23/19 Time: 14:16 Interval history: No new issues. No angina, No SOB. - Review of Systems General: denies: fever/chills, weight/appetite/sleep changes, night sweats, fatigue Respiratory: denies: cough, congestion, shortness of breath, exercise intolerance Cardiovascular: denies: chest pain, palpitation, edema, paroxysmal nocturnal dyspnea, orthopnea Gastrointestinal: denies: nausea, vomiting, diarrhea, constipation, abd pain, GI bleeding Musculoskeletal: denies: pain, tenderness, stiffness, swelling, arthritis/ arthralgias Neurological: denies: numbness, syncope, seizure, weakness - Objective Allergies/Adverse Reactions: Allergies Allergy/AdvReac Type Severity Reaction Status Date / Time No Known Drug Allergies Allergy Verified 08/11/19 21:36 Visit Medications: Current Medications Acetaminophen (Tylenol) 650 mg PO Q4H PRN PRN Reason: Headache/Fever or Pain 1-3 Ammonium Lactate (Laclotion) 0 gm TOP BID [facility] Last Admin: 09/23/19 08:32 Dose: 225 gm Aspirin (Ecotrin) 81 mg PO DAILY [facility] Last Admin: 09/23/19 08:29 Dose: 81 mg Atorvastatin Calcium (Lipitor) 40 mg PO [facility] Last Admin: 09/22/19 21:04 Dose: 40 mg Carvedilol (Coreg) 3.125 mg PO BID-[facility] Last Admin: 09/23/19 08:28 Dose: 3.125 mg Dextrose/Water (Dextrose 50%) 25 gm IVP PRN PRN PRN Reason: HYPOGLYCEMIA PROTOCOL Docusate Sodium (Colace) 100 mg PO BID [facility] Last Admin: 09/23/19 08:28 Dose: 100 mg Enoxaparin Sodium (Lovenox) 40 mg SC 0900 [facility] Last Admin: 09/23/19 08:28 Dose: 40 mg Furosemide (Lasix) 40 mg SLOW IVP 0600,1400 [facility] Last Admin: 09/23/19 06:20 Dose: 40 mg Glipizide (Glucotrol) 5 mg PO BID-[facility] Last Admin: 09/23/19 08:28 Dose: 5 mg Glucagon (Glucagon) 1 mg IM PRN PRN PRN Reason: HYPOGLYCEMIA PROTOCOL Guaifenesin/Dextromethorphan (Robitussin Dm) 15 ml PO Q4H PRN PRN Reason: Cough Hydralazine HCl (Apresoline) 10 mg SLOW IVP Q4H PRN PRN Reason: SBP > 180 AND HR < 70 Dextrose/Water (D5w) 1,000 mls @ 0 mls/hr IV INF PRN PRN Reason: HYPOGLYCEMIA PROTOCOL Dobutamine HCl/Dextrose (Dobutamine 500 Mg/250 Ml) 250 mls @ 24.174 mls/hr IVPB INF JASON; Protocol Insulin Human Lispro (Humalog) 0 units SC .MODERATE SLIDING SC PRN; Protocol PRN Reason: MODERATE SLIDING SCALE Last Admin: 09/23/19 11:43 Dose: 2 units Insulin Human Lispro (Humalog) 0 units SC .BEDTIME SLIDING SC PRN; Protocol PRN Reason: BEDTIME SLIDING SCALE Last Admin: 09/21/19 21:17 Dose: 2 unit Lisinopril (Zestril) 2.5 mg PO BID [facility] Last Admin: 09/23/19 08:29 Dose: 2.5 mg Magnesium Hydroxide (Milk Of Magnesium) 30 ml PO DAILYPRN PRN PRN Reason: Constipation Last Admin: 09/20/19 13:18 Dose: 30 ml Ondansetron HCl (Zofran Odt) 4 mg SL Q6H PRN PRN Reason: Nausea/Vomiting Ondansetron HCl (Zofran) 4 mg SLOW IVP Q6H PRN PRN Reason: Nausea/Vomiting Saccharomyces Boulardii (Florastor) 250 mg PO DAILY [facility] Last Admin: 09/23/19 08:29 Dose: 250 mg Sodium Chloride (Flush - Normal Saline) 10 ml IVF Q12HR [facility] Last Admin: 09/23/19 08:29 Dose: 10 ml Sodium Chloride (Flush - Normal Saline) 10 ml IVF PRN PRN PRN Reason: Saline Flush Last Admin: 09/21/19 21:23 Dose: 10 ml Vital Signs & Weight: Vital Signs Temp Pulse Pulse Pulse Resp BP BP 09/23/19 11:39 58 L 74 109/61 09/23/19 11:08 97.7 F 65 18 09/23/19 08:29 70 122/57 L 09/23/19 08:00 09/23/19 07:24 97.7 F 70 20 09/23/19 03:30 97.6 F 69 21 H BP BP Pulse Ox Pulse Ox Pulse Ox 09/23/19 11:39 155/71 H 96 85 L 09/23/19 11:08 155/71 H 96 09/23/19 08:29 09/23/19 08:00 96 09/23/19 07:24 122/57 L 96 09/23/19 03:30 124/61 91 L Admit Weight 358 lb Weight 338 lb 14.4 oz - Physical Exam General: alert & oriented x3 HEENT: mucus membranes moist Cardiac: regular rate and rhythm Lungs: normal breath sounds Neuro: grossly intact Abdomen: active bowel sounds Extremities: 2+ LE edema Skin: clear Musculoskeletal: no pain - Labs Result Diagrams: 09/22/19 09:34 09/23/19 04:55 Troponin/CKMB Troponin I 0.914 ng/mL (< 0.028) H* 09/16/19 10:59 - Telemetry Sinus rhythms and dysrhythmias: sinus rhythm - Assessment/Plan Assessment/Plan: 1. Ischemic CM EF at 15-20% 2. Acute on chronic systolic heart failure 3. NSVT, refusing AICD placement. 4. PAT 5. S/P CABG 6. NSTEMI type 2 [place] 7. Non compliance. 8. Obesity PLAN: - Continue IV diuresis . - Off dobutamine. - Continue BB and ACEI. - Dr. Madera to follow tomorrow.
[2019-09-23] MEDS: Atorvastatin Calcium 40 MG TAB PO SCH (20:35)
[2019-09-24 05:58] LABS: Anion Gap 12 mmol/L (10-20); BUN (Urea Nitrogen) 24 mg/dL (8.4-25.7); Calc. Creatinine Clearance 138 mL/min (70-130); Calcium 8.1 mg/dL (7.8-10.44); Carbon Dioxide 28 mmol/L (23-31); Chloride 101 mmol/L (98-107); Estimated GFR-MDRD 62; Glucose 131 mg/dL (80-115); Potassium 4.3 mmol/L (3.5-5.1); Sodium 137 mmol/L (136-145)
[2019-09-24] MEDS: Furosemide 40 MG/4 ML VIAL SLOW IVP SCH ×2 (06:18→14:32)
[2019-09-24] MEDS: Carvedilol 3.125 MG TAB PO SCH ×2 (09:35→16:22)
[2019-09-24] MEDS: Lisinopril 2.5 MG TAB PO SCH ×2 (09:35→20:51)
[2019-09-24] MEDS: Aspirin 81 mg Enteric Coated Tablet PO SCH (09:35)
[2019-09-24] MEDS: glipiZIDE 5 MG TAB PO SCH ×2 (09:35→16:22)
[2019-09-24] MEDS: Enoxaparin Sodium 40 MG/0.4 ML SYRINGE SC SCH (09:35)
[2019-09-24] MEDS: Saccharomyces boulardii 250 MG CAP PO SCH (09:35)
[2019-09-24] MEDS: Docusate 100 MG CAP PO SCH ×2 (09:35→20:51)
[2019-09-24] MEDS: Ammonium Lactate 12% Lotion 225 GM BOT TOP SCH ×2 (09:36→20:51)
--- NOTE | 2019-09-24 15:21 | PDOC.HOSPP ---
- Subjective Encounter Date: 09/23/19 Encounter Time: 09:00 Subjective: pt up in bed no complains. - Objective Vital Signs & Weight: Vital Signs (12 hours) Temp Pulse Pulse Pulse Resp BP BP 09/24/19 13:57 73 75 129/76 119/73 09/24/19 11:41 97.9 F 70 18 09/24/19 09:35 79 09/24/19 07:42 09/24/19 07:27 97.2 F L 79 18 BP BP Pulse Ox Pulse Ox Pulse Ox 09/24/19 13:57 90 L 90 L 09/24/19 11:41 135/70 94 L 09/24/19 09:35 09/24/19 07:42 92 L 09/24/19 07:27 119/59 L 92 L Weight Admit Weight 358 lb Weight 341 lb I&O: 09/23/19 09/24/19 09/25/19 06:59 06:59 06:59 Intake Total 1247 1100 Output Total 1040 1050 Balance 207 50 Result Diagrams: 09/22/19 09:34 09/24/19 04:42 Additional Labs: Accuchecks 09/24/19 09/24/19 09/23/19 10:26 05:55 20:48 POC Glucose 206 H 129 H 149 H 09/23/19 16:51 POC Glucose 193 H Hospitalist ROS - Review of Systems Cardiovascular: denies: chest pain, palpitations, orthopnea, paroxysmal noc. dyspnea, edema, light headedness, other Gastrointestinal: denies: nausea, vomiting, abdominal pain, diarrhea, constipation, melena, hematochezia, other Genitourinary: denies: dysuria, frequency, incontinence, hematuria, retention, other - Medication Medications: Active Medications Generic Name Dose Route Start Last Admin Trade Name Freq PRN Reason Stop Dose Admin Ammonium Lactate 0 gm 09/16/19 21:00 09/24/19 09:36 Laclotion TOP 10 gm BID JASON Administration Aspirin 81 mg 09/17/19 09:00 09/24/19 09:35 Ecotrin PO 81 mg DAILY JASON Administration Atorvastatin Calcium 40 mg 09/16/19 21:00 09/23/19 20:35 Lipitor PO 40 mg HS JASON Administration Carvedilol 3.125 mg 09/20/19 17:00 09/24/19 09:35 Coreg PO 3.125 mg BID-WM JASON Administration Docusate Sodium 100 mg 09/20/19 21:00 09/24/19 09:35 Colace PO 100 mg BID JASON Administration Enoxaparin Sodium 40 mg 09/23/19 09:00 09/24/19 09:35 Lovenox SC 40 mg 0900 JASON Administration Furosemide 40 mg 09/17/19 06:00 09/24/19 14:32 Lasix SLOW IVP 40 mg 0600,1400 JASON Administration Glipizide 5 mg 09/16/19 08:00 09/24/19 09:35 Glucotrol PO 5 mg BID-WM JASON Administration Insulin Human Lispro 0 units 09/15/19 23:34 09/23/19 17:23 Humalog SC 2 units .MODERATE SLIDING SC PRN Administration MODERATE SLIDING SCALE Protocol Insulin Human Lispro 0 units 09/15/19 23:34 09/21/19 21:17 Humalog SC 2 unit .BEDTIME SLIDING SC PRN Administration BEDTIME SLIDING SCALE Protocol Lisinopril 2.5 mg 09/21/19 21:00 09/24/19 09:35 Zestril PO 2.5 mg BID JASON Administration Magnesium Hydroxide 30 ml 09/20/19 10:08 09/20/19 13:18 Milk Of Magnesium PO 30 ml DAILYPRN PRN Administration Constipation Ondansetron HCl 4 mg 09/15/19 23:38 09/23/19 20:35 Zofran Odt SL 4 mg Q6H PRN Administration Nausea/Vomiting Saccharomyces Boulardii 250 mg 09/19/19 09:00 09/24/19 09:35 Florastor PO 250 mg DAILY JASON Administration Sodium Chloride 10 ml 09/19/19 09:00 09/24/19 06:18 Flush - Normal Saline IVF 10 ml Q12HR JASON Administration Sodium Chloride 10 ml 09/19/19 07:53 09/24/19 06:18 Flush - Normal Saline IVF 10 ml PRN PRN Administration Saline Flush - Exam Neck: negative: supple, symmetric, no JVD, no thyromegaly, no lymphadenopathy, no carotid bruit, JVD Heart: negative: RRR, no murmur, no gallops, no rubs, normal peripheral pulses, irregular, diminshed peripheral pulses, murmur present, II/IV, III/IV Respiratory: negative: CTAB, no wheezes, no rales, no ronchi, normal chest expansion, no tachypnea, normal percussion, rales, rhonchi, tachypneic, wheezes Gastrointestinal: soft Gastrointestinal - other findings: obse Extremities: 2+ LE edema Hosp A/P (1) Acute on chronic systolic heart failure, NYHA class 3 Code(s): I50.23 - ACUTE ON CHRONIC SYSTOLIC (CONGESTIVE) HEART FAILURE Status : Acute (2) Morbid obesity with BMI of 50.0-59.9, adult Code(s): E66.01 - MORBID (SEVERE) OBESITY DUE TO EXCESS CALORIES; Z68.43 - BODY MASS INDEX (BMI) 50.0-59.9, ADULT Status: Acute (3) CAD (coronary artery disease) Code(s): I25.10 - ATHSCL HEART DISEASE OF [place] CORONARY ARTERY W/O ANG PCTRS Status: Chronic Qualifiers: (4) Diabetes type 2, controlled Code(s): E11.9 - TYPE 2 DIABETES MELLITUS WITHOUT COMPLICATIONS Status: Chronic (5) Dyslipidemia Code(s): E78.5 - HYPERLIPIDEMIA, UNSPECIFIED Status: Chronic (6) HTN (hypertension) Code(s): I10 - ESSENTIAL (PRIMARY) HYPERTENSION Status: Chronic Qualifiers: (7) Lymph node disorder Code(s): I89.9 - NONINFECTIVE DISORDER OF LYMPHATIC VESSELS AND NODES, UNSP Status: Acute (8) Pneumonia, community acquired Code(s): J18.9 - PNEUMONIA, UNSPECIFIED ORGANISM Status: Acute - Plan pt's lower ext wrapped, will continue Lasix and dobutamine drip. Per notes pt has refused AICD and does not want a life vest. multiple lymph nodes noted in ctabd/pel will check ldh. pt denies any night sweat nor any weight loss. He will most likely need a follow up outpatient. will stop abx. will get cbc. per nursing he had some hemoptysis. will change his full dose lovonox to dvt ppx. 5/3 pt off dobutamine will monitor. will continue iv lasix. will call his niece and update her.
--- NOTE | 2019-09-24 15:24 | PDOC.HOSPP ---
- Subjective Encounter Date: 09/24/19 Encounter Time: 11:15 Subjective: pt up in bed no complains. He has been compliant with his limited water intake. - Objective Vital Signs & Weight: Vital Signs (12 hours) Temp Pulse Pulse Pulse Resp BP BP 09/24/19 13:57 73 75 129/76 119/73 09/24/19 11:41 97.9 F 70 18 09/24/19 09:35 79 09/24/19 07:42 09/24/19 07:27 97.2 F L 79 18 BP BP Pulse Ox Pulse Ox Pulse Ox 09/24/19 13:57 90 L 90 L 09/24/19 11:41 135/70 94 L 09/24/19 09:35 09/24/19 07:42 92 L 09/24/19 07:27 119/59 L 92 L Weight Admit Weight 358 lb Weight 341 lb I&O: 09/23/19 09/24/19 09/25/19 06:59 06:59 06:59 Intake Total 1247 1100 Output Total 1040 1050 Balance 207 50 Result Diagrams: 09/22/19 09:34 09/24/19 04:42 Additional Labs: Accuchecks 09/24/19 09/24/19 09/23/19 10:26 05:55 20:48 POC Glucose 206 H 129 H 149 H 09/23/19 16:51 POC Glucose 193 H Hospitalist ROS - Review of Systems Cardiovascular: denies: chest pain, palpitations, orthopnea, paroxysmal noc. dyspnea, edema, light headedness, other Gastrointestinal: denies: nausea, vomiting, abdominal pain, diarrhea, constipation, melena, hematochezia, other Genitourinary: denies: dysuria, frequency, incontinence, hematuria, retention, other - Medication Medications: Active Medications Generic Name Dose Route Start Last Admin Trade Name Freq PRN Reason Stop Dose Admin Ammonium Lactate 0 gm 09/16/19 21:00 09/24/19 09:36 Laclotion TOP 10 gm BID JASON Administration Aspirin 81 mg 09/17/19 09:00 09/24/19 09:35 Ecotrin PO 81 mg DAILY JASON Administration Atorvastatin Calcium 40 mg 09/16/19 21:00 09/23/19 20:35 Lipitor PO 40 mg HS JASON Administration Carvedilol 3.125 mg 09/20/19 17:00 09/24/19 09:35 Coreg PO 3.125 mg BID-WM JASON Administration Docusate Sodium 100 mg 09/20/19 21:00 09/24/19 09:35 Colace PO 100 mg BID JASON Administration Enoxaparin Sodium 40 mg 09/23/19 09:00 09/24/19 09:35 Lovenox SC 40 mg 0900 JASON Administration Furosemide 40 mg 09/17/19 06:00 09/24/19 14:32 Lasix SLOW IVP 40 mg 0600,1400 JASON Administration Glipizide 5 mg 09/16/19 08:00 09/24/19 09:35 Glucotrol PO 5 mg BID-WM JASON Administration Insulin Human Lispro 0 units 09/15/19 23:34 09/23/19 17:23 Humalog SC 2 units .MODERATE SLIDING SC PRN Administration MODERATE SLIDING SCALE Protocol Insulin Human Lispro 0 units 09/15/19 23:34 09/21/19 21:17 Humalog SC 2 unit .BEDTIME SLIDING SC PRN Administration BEDTIME SLIDING SCALE Protocol Lisinopril 2.5 mg 09/21/19 21:00 09/24/19 09:35 Zestril PO 2.5 mg BID JASON Administration Magnesium Hydroxide 30 ml 09/20/19 10:08 09/20/19 13:18 Milk Of Magnesium PO 30 ml DAILYPRN PRN Administration Constipation Ondansetron HCl 4 mg 09/15/19 23:38 09/23/19 20:35 Zofran Odt SL 4 mg Q6H PRN Administration Nausea/Vomiting Saccharomyces Boulardii 250 mg 09/19/19 09:00 09/24/19 09:35 Florastor PO 250 mg DAILY JASON Administration Sodium Chloride 10 ml 09/19/19 09:00 09/24/19 06:18 Flush - Normal Saline IVF 10 ml Q12HR JASON Administration Sodium Chloride 10 ml 09/19/19 07:53 09/24/19 06:18 Flush - Normal Saline IVF 10 ml PRN PRN Administration Saline Flush - Exam Neck: negative: supple, symmetric, no JVD, no thyromegaly, no lymphadenopathy, no carotid bruit, JVD Respiratory: negative: CTAB, no wheezes, no rales, no ronchi, normal chest expansion, no tachypnea, normal percussion, rales, rhonchi, tachypneic, wheezes Gastrointestinal: soft Gastrointestinal - other findings: obse, bsx2 Extremities: 2+ LE edema Psychiatric: negative: normal affect, normal behavior, A&O x 3, oriented to person, oriented to place, oriented to time, not oriented, flat affect, somnolent, lethargic Hosp A/P (1) Acute on chronic systolic heart failure, NYHA class 3 Code(s): I50.23 - ACUTE ON CHRONIC SYSTOLIC (CONGESTIVE) HEART FAILURE Status : Acute (2) Morbid obesity with BMI of 50.0-59.9, adult Code(s): E66.01 - MORBID (SEVERE) OBESITY DUE TO EXCESS CALORIES; Z68.43 - BODY MASS INDEX (BMI) 50.0-59.9, ADULT Status: Acute (3) CAD (coronary artery disease) Code(s): I25.10 - ATHSCL HEART DISEASE OF [place] CORONARY ARTERY W/O ANG PCTRS Status: Chronic Qualifiers: (4) Diabetes type 2, controlled Code(s): E11.9 - TYPE 2 DIABETES MELLITUS WITHOUT COMPLICATIONS Status: Chronic (5) Dyslipidemia Code(s): E78.5 - HYPERLIPIDEMIA, UNSPECIFIED Status: Chronic (6) HTN (hypertension) Code(s): I10 - ESSENTIAL (PRIMARY) HYPERTENSION Status: Chronic Qualifiers: (7) Lymph node disorder Code(s): I89.9 - NONINFECTIVE DISORDER OF LYMPHATIC VESSELS AND NODES, UNSP Status: Acute (8) Pneumonia, community acquired Code(s): J18.9 - PNEUMONIA, UNSPECIFIED ORGANISM Status: Acute - Plan pt's lower ext wrapped, will continue Lasix and dobutamine drip. Per notes pt has refused AICD and does not want a life vest. multiple lymph nodes noted in ctabd/pel will check ldh. pt denies any night sweat nor any weight loss. He will most likely need a follow up outpatient. will stop abx. will get cbc. per nursing he had some hemoptysis. will change his full dose lovonox to dvt ppx. 09/22 pt off dobutamine will monitor. will continue iv lasix. will call his niece and update her. 09/23 electrolytes stable. Talked to pt about aicd he does not want it. may add zaroxolyn for better diuresis. discharge when ok with cardiology.
[2019-09-24] MEDS: Milk Of Magnesia 30 ML UDCUP PO PRN (16:25)
[2019-09-24] MEDS: HumaLOG 300 UNITS/3 ML VIAL SC PRN (20:48)
[2019-09-24] MEDS: Atorvastatin Calcium 40 MG TAB PO SCH (20:51)
[2019-09-25] MEDS: Furosemide 40 MG/4 ML VIAL SLOW IVP SCH ×2 (05:37→13:42)
[2019-09-25 07:53] LABS: Calcium 8.7 mg/dL (7.8-10.44); Chloride 99 mmol/L (98-107); Potassium 4.9 mmol/L (3.5-5.1); Sodium 138 mmol/L (136-145)
[2019-09-25 07:54] LABS: Glucose 131 mg/dL (80-115)
[2019-09-25 07:55] LABS: Anion Gap 15 mmol/L (10-20); Carbon Dioxide 29 mmol/L (23-31)
[2019-09-25 07:57] LABS: Calc. Creatinine Clearance 148 mL/min (70-130); Estimated GFR-MDRD 66
[2019-09-25 07:58] LABS: BUN (Urea Nitrogen) 27 mg/dL (8.4-25.7)
[2019-09-25] MEDS: Carvedilol 3.125 MG TAB PO SCH ×2 (08:11→17:22)
[2019-09-25] MEDS: Lisinopril 2.5 MG TAB PO SCH ×2 (08:11→21:40)
[2019-09-25] MEDS: Saccharomyces boulardii 250 MG CAP PO SCH ×2 (08:11→08:12)
[2019-09-25] MEDS: glipiZIDE 5 MG TAB PO SCH ×2 (08:11→17:22)
[2019-09-25] MEDS: Aspirin 81 mg Enteric Coated Tablet PO SCH (08:12)
[2019-09-25] MEDS: Enoxaparin Sodium 40 MG/0.4 ML SYRINGE SC SCH (08:12)
[2019-09-25] MEDS: Docusate 100 MG CAP PO SCH ×2 (08:12→21:40)
[2019-09-25] MEDS: Ammonium Lactate 12% Lotion 225 GM BOT TOP SCH ×2 (09:23→21:40)
[2019-09-25] MEDS: HumaLOG 300 UNITS/3 ML VIAL SC PRN ×2 (11:17→17:22)
[2019-09-25] MEDS: Metolazone 2.5 MG TAB PO SCH (13:41)
[2019-09-25] MEDS: Atorvastatin Calcium 40 MG TAB PO SCH (21:40)
[2019-09-26 04:58] LABS: Anion Gap 13 mmol/L (10-20); BUN (Urea Nitrogen) 28 mg/dL (8.4-25.7); Calc. Creatinine Clearance 174 mL/min (70-130); Calcium 8.5 mg/dL (7.8-10.44); Carbon Dioxide 26 mmol/L (23-31); Chloride 100 mmol/L (98-107); Estimated GFR-MDRD 79; Glucose 122 mg/dL (80-115); Potassium 4.4 mmol/L (3.5-5.1); Sodium 135 mmol/L (136-145)
[2019-09-26] MEDS ORDERED: Metolazone 2.5 MG TAB PO SCH (05:45)
--- NOTE | 2019-09-26 05:48 | PDOC.HOSPP ---
- Subjective Encounter Date: 09/25/19 Encounter Time: 10:15 Subjective: pt up in chair no complains. - Objective Vital Signs & Weight: Vital Signs (12 hours) Temp Pulse Resp BP BP Pulse Ox 09/26/19 03:35 97.5 F L 68 18 131/60 98 09/25/19 23:05 98.7 F 68 19 137/63 97 09/25/19 21:40 66 121/66 09/25/19 19:50 98.7 F 66 17 121/66 95 Weight Admit Weight 358 lb Weight 344 lb 8 oz I&O: 09/24/19 09/25/19 09/26/19 06:59 06:59 06:59 Intake Total 1100 1440 1301 Output Total 1353 373 0410 Balance 50 690 -1499 Result Diagrams: 09/22/19 09:34 09/26/19 04:38 Additional Labs: Accuchecks 09/25/19 09/25/19 09/25/19 20:53 17:13 10:39 POC Glucose 139 H 164 H 233 H 09/25/19 05:43 POC Glucose 137 H Hospitalist ROS - Review of Systems Cardiovascular: denies: chest pain, palpitations, orthopnea, paroxysmal noc. dyspnea, edema, light headedness, other Gastrointestinal: denies: nausea, vomiting, abdominal pain, diarrhea, constipation, melena, hematochezia, other Genitourinary: denies: dysuria, frequency, incontinence, hematuria, retention, other - Medication Medications: Active Medications Generic Name Dose Route Start Last Admin Trade Name Freq PRN Reason Stop Dose Admin Ammonium Lactate 0 gm 09/16/19 21:00 09/25/19 21:40 Laclotion TOP 225 gm BID JASON Administration Aspirin 81 mg 09/17/19 09:00 09/25/19 08:12 Ecotrin PO 81 mg DAILY JASON Administration Atorvastatin Calcium 40 mg 09/16/19 21:00 09/25/19 21:40 Lipitor PO 40 mg HS JASON Administration Carvedilol 3.125 mg 09/20/19 17:00 09/25/19 17:22 Coreg PO 3.125 mg BID-WM JASON Administration Docusate Sodium 100 mg 09/20/19 21:00 09/25/19 21:40 Colace PO 100 mg BID JASON Administration Enoxaparin Sodium 40 mg 09/23/19 09:00 09/25/19 08:12 Lovenox SC 40 mg 0900 JASON Administration Furosemide 40 mg 09/17/19 06:00 09/25/19 13:42 Lasix SLOW IVP 40 mg 0600,1400 JASON Administration Glipizide 5 mg 09/16/19 08:00 09/25/19 17:22 Glucotrol PO 5 mg BID-WM JASON Administration Insulin Human Lispro 0 units 09/15/19 23:34 09/25/19 17:22 Humalog SC 2 units .MODERATE SLIDING SC PRN Administration MODERATE SLIDING SCALE Protocol Insulin Human Lispro 0 units 09/15/19 23:34 09/24/19 20:48 Humalog SC 2 unit .BEDTIME SLIDING SC PRN Administration BEDTIME SLIDING SCALE Protocol Lisinopril 2.5 mg 09/21/19 21:00 09/25/19 21:40 Zestril PO 2.5 mg BID JASON Administration Magnesium Hydroxide 30 ml 09/20/19 10:08 09/24/19 16:25 Milk Of Magnesium PO 30 ml DAILYPRN PRN Administration Constipation Metolazone 2.5 mg 09/25/19 13:30 09/25/19 13:41 Zaroxolyn PO 2.5 mg 1330 JASON Administration Ondansetron HCl 4 mg 09/15/19 23:38 09/23/19 20:35 Zofran Odt SL 4 mg Q6H PRN Administration Nausea/Vomiting Saccharomyces Boulardii 250 mg 09/19/19 09:00 09/25/19 08:12 Florastor PO 250 mg DAILY JASON Administration Sodium Chloride 10 ml 09/19/19 09:00 09/25/19 21:40 Flush - Normal Saline IVF 10 ml Q12HR JASON Administration Sodium Chloride 10 ml 09/19/19 07:53 09/25/19 05:37 Flush - Normal Saline IVF 10 ml PRN PRN Administration Saline Flush - Exam Heart: negative: RRR, no murmur, no gallops, no rubs, normal peripheral pulses, irregular, diminshed peripheral pulses, murmur present, II/IV, III/IV Respiratory: rales Gastrointestinal: negative: soft, non-tender, non-distended, normal bowel sounds , no palpable masses, no hepatomegaly, no splenomegaly, no bruit, no guarding, no rigidity, tender to palpation, distended, diminished bowl sounds, voluntary guarding Extremities: 2+ LE edema Hosp A/P (1) Acute on chronic systolic heart failure, NYHA class 3 Code(s): I50.23 - ACUTE ON CHRONIC SYSTOLIC (CONGESTIVE) HEART FAILURE Status : Acute (2) Morbid obesity with BMI of 50.0-59.9, adult Code(s): E66.01 - MORBID (SEVERE) OBESITY DUE TO EXCESS CALORIES; Z68.43 - BODY MASS INDEX (BMI) 50.0-59.9, ADULT Status: Acute (3) CAD (coronary artery disease) Code(s): I25.10 - ATHSCL HEART DISEASE OF [place] CORONARY ARTERY W/O ANG PCTRS Status: Chronic Qualifiers: (4) Diabetes type 2, controlled Code(s): E11.9 - TYPE 2 DIABETES MELLITUS WITHOUT COMPLICATIONS Status: Chronic (5) Dyslipidemia Code(s): E78.5 - HYPERLIPIDEMIA, UNSPECIFIED Status: Chronic (6) HTN (hypertension) Code(s): I10 - ESSENTIAL (PRIMARY) HYPERTENSION Status: Chronic Qualifiers: (7) Lymph node disorder Code(s): I89.9 - NONINFECTIVE DISORDER OF LYMPHATIC VESSELS AND NODES, UNSP Status: Acute (8) Pneumonia, community acquired Code(s): J18.9 - PNEUMONIA, UNSPECIFIED ORGANISM Status: Acute - Plan pt's lower ext wrapped, will continue Lasix and dobutamine drip. Per notes pt has refused AICD and does not want a life vest. multiple lymph nodes noted in ctabd/pel will check ldh. pt denies any night sweat nor any weight loss. He will most likely need a follow up outpatient. will stop abx. will get cbc. per nursing he had some hemoptysis. will change his full dose lovonox to dvt ppx. 09/22 pt off dobutamine will monitor. will continue iv lasix. will call his niece and update her. 09/23 electrolytes stable. Talked to pt about aicd he does not want it. may add zaroxolyn for better diuresis. discharge when ok with cardiology. 09/24 Has not lost much weight. zaroxolyn added. spoke with cardio no procedure recommended. will monitor. electrolytes stable.
[2019-09-26] MEDS: Furosemide 40 MG/4 ML VIAL SLOW IVP SCH ×2 (05:59→13:03)
[2019-09-26 06:27] VITALS: BMI 54.1
[2019-09-26] MEDS: Enoxaparin Sodium 40 MG/0.4 ML SYRINGE SC SCH (07:25)
[2019-09-26] MEDS: Aspirin 81 mg Enteric Coated Tablet PO SCH (07:26)
[2019-09-26] MEDS: glipiZIDE 5 MG TAB PO SCH ×2 (07:26→15:55)
[2019-09-26] MEDS: Docusate 100 MG CAP PO SCH ×2 (07:26→20:37)
[2019-09-26] MEDS: Lisinopril 2.5 MG TAB PO SCH ×2 (07:26→20:38)
[2019-09-26] MEDS: Saccharomyces boulardii 250 MG CAP PO SCH (07:27)
[2019-09-26] MEDS: Carvedilol 3.125 MG TAB PO SCH ×3 (07:27→20:37)
[2019-09-26] MEDS: Ammonium Lactate 12% Lotion 225 GM BOT TOP SCH ×2 (07:28→20:37)
--- NOTE | 2019-09-26 10:10 | PDOC.HOSPP ---
- Subjective Encounter Date: 09/26/19 Encounter Time: 07:15 Subjective: pt seen and examined, pt is doing OK, he still has edema in his leg, denies chest pain or dyspnea - Objective Vital Signs & Weight: Vital Signs (12 hours) Temp Pulse Resp BP BP Pulse Ox 09/26/19 07:46 92 L 09/26/19 07:19 97.5 F L 72 18 133/64 92 L 09/26/19 03:35 97.5 F L 68 18 131/60 98 09/25/19 23:05 98.7 F 68 19 137/63 97 Weight Admit Weight 358 lb Weight 336 lb 8 oz I&O: 09/25/19 09/26/19 09/27/19 06:59 06:59 06:59 Intake Total 1440 1421 Output Total 750 3000 Balance 690 -9499 Result Diagrams: 09/22/19 09:34 09/26/19 04:38 Additional Labs: Accuchecks 09/26/19 09/25/19 09/25/19 05:58 20:53 17:13 POC Glucose 128 H 139 H 164 H 09/25/19 10:39 POC Glucose 233 H Radiology Reviewed by me: Yes EKG Reviewed by me: Yes Hospitalist ROS - Review of Systems Constitutional: denies: fever, chills, sweats, weakness, malaise, other ENT: denies: ear pain, ear discharge, nose pain, nose discharge, nose congestion , mouth pain, mouth swelling, throat pain, throat swelling, other Respiratory: denies: cough, dry, shortness of breath, hemoptysis, SOB with excertion, pleuritic pain, sputum, wheezing, other Cardiovascular: reports: edema. denies: chest pain, palpitations, orthopnea, paroxysmal noc. dyspnea, light headedness, other Gastrointestinal: denies: nausea, vomiting, abdominal pain, diarrhea, constipation, melena, hematochezia, other Genitourinary: denies: dysuria, frequency, incontinence, hematuria, retention, other Musculoskeletal: denies: neck pain, shoulder pain, arm pain, back pain, hand pain, leg pain, foot pain, other - Medication Medications: Active Medications Generic Name Dose Route Start Last Admin Trade Name Freq PRN Reason Stop Dose Admin Ammonium Lactate 0 gm 09/16/19 21:00 09/26/19 07:28 Laclotion TOP 225 gm BID JASON Administration Aspirin 81 mg 09/17/19 09:00 09/26/19 07:26 Ecotrin PO 81 mg DAILY JASON Administration Atorvastatin Calcium 40 mg 09/16/19 21:00 09/25/19 21:40 Lipitor PO 40 mg HS JASON Administration Docusate Sodium 100 mg 09/20/19 21:00 09/26/19 07:26 Colace PO 100 mg BID JASON Administration Enoxaparin Sodium 40 mg 09/23/19 09:00 09/26/19 07:25 Lovenox SC 40 mg 0900 JASON Administration Furosemide 40 mg 09/17/19 06:00 09/26/19 05:59 Lasix SLOW IVP 40 mg 0600,1400 JASON Administration Glipizide 5 mg 09/16/19 08:00 09/26/19 07:26 Glucotrol PO 5 mg BID-WM JASON Administration Insulin Human Lispro 0 units 09/15/19 23:34 09/25/19 17:22 Humalog SC 2 units .MODERATE SLIDING SC PRN Administration MODERATE SLIDING SCALE Protocol Insulin Human Lispro 0 units 09/15/19 23:34 09/24/19 20:48 Humalog SC 2 unit .BEDTIME SLIDING SC PRN Administration BEDTIME SLIDING SCALE Protocol Lisinopril 2.5 mg 09/21/19 21:00 09/26/19 07:26 Zestril PO 2.5 mg BID JASON Administration Magnesium Hydroxide 30 ml 09/20/19 10:08 09/24/19 16:25 Milk Of Magnesium PO 30 ml DAILYPRN PRN Administration Constipation Metolazone 2.5 mg 09/25/19 13:30 09/25/19 13:41 Zaroxolyn PO 2.5 mg 1330 JASON Administration Ondansetron HCl 4 mg 09/15/19 23:38 09/23/19 20:35 Zofran Odt SL 4 mg Q6H PRN Administration Nausea/Vomiting Saccharomyces Boulardii 250 mg 09/19/19 09:00 09/26/19 07:27 Florastor PO 250 mg DAILY JASON Administration Sodium Chloride 10 ml 09/19/19 09:00 09/26/19 07:27 Flush - Normal Saline IVF 10 ml Q12HR JASON Administration Sodium Chloride 10 ml 09/19/19 07:53 09/26/19 05:59 Flush - Normal Saline IVF 10 ml PRN PRN Administration Saline Flush - Exam General Appearance: NAD, awake alert Eye: PERRL, anicteric sclera ENT: normocephalic atraumatic, no oropharyngeal lesions Neck: supple, symmetric, no JVD, no thyromegaly Heart: RRR, no murmur, no gallops, no rubs Respiratory: CTAB, no wheezes, no rales Respiratory - other findings: air entry reduced a base Gastrointestinal: soft, normal bowel sounds, no palpable masses, no hepatomegaly Gastrointestinal - other findings: obesity noted Extremities: 2+ LE edema Extremities - other findings: leg covered with dressing Skin: normal turgor, no lesions Neurological: no focal deficits Musculoskeletal: normal tone, normal strength Psychiatric: normal affect, normal behavior, A&O x 3 Hosp A/P (1) Acute on chronic combined systolic and diastolic congestive heart failure Code(s): I50.43 - ACUTE ON CHRONIC COMBINED SYSTOLIC AND DIASTOLIC HRT FAIL Status: Acute (2) Morbid obesity with BMI of 50.0-59.9, adult Code(s): E66.01 - MORBID (SEVERE) OBESITY DUE TO EXCESS CALORIES; Z68.43 - BODY MASS INDEX (BMI) 50.0-59.9, ADULT Status: Chronic (3) Anemia, normocytic normochromic Code(s): D64.9 - ANEMIA, UNSPECIFIED Status: Chronic (4) CAD (coronary artery disease) Code(s): I25.10 - ATHSCL HEART DISEASE OF [place] CORONARY ARTERY W/O ANG PCTRS Status: Chronic Qualifiers: (5) Cholelithiases Code(s): K80.20 - CALCULUS OF GALLBLADDER W/O CHOLECYSTITIS W/O OBSTRUCTION Status: Chronic (6) Diabetes type 2, controlled Code(s): E11.9 - TYPE 2 DIABETES MELLITUS WITHOUT COMPLICATIONS Status: Chronic (7) Dyslipidemia Code(s): E78.5 - HYPERLIPIDEMIA, UNSPECIFIED Status: Chronic (8) GERD (gastroesophageal reflux disease) Code(s): K21.9 - GASTRO-ESOPHAGEAL REFLUX DISEASE WITHOUT ESOPHAGITIS Status: Chronic (9) HTN (hypertension) Code(s): I10 - ESSENTIAL (PRIMARY) HYPERTENSION Status: Chronic Qualifiers: (10) Ischemic cardiomyopathy Code(s): I25.5 - ISCHEMIC CARDIOMYOPATHY Status: Chronic (11) Non compliance w medication regimen Code(s): Z91.14 - PATIENT'S OTHER NONCOMPLIANCE WITH MEDICATION REGIMEN Status : Chronic (12) Seizure disorder Code(s): G40.909 - EPILEPSY, UNSP, NOT INTRACTABLE, WITHOUT STATUS EPILEPTICUS Status: Chronic - Plan old records reviewed/req discussed with cardiology, pt still has significant volume overload requiring aggressive diuresis, he will require another day or 2 diuresis in hospital I tried to reach out on phone but unable to contact her medication reviewed and continue to provide symptomatic care monitor labs, I/O, daily weight
[2019-09-26] MEDS ORDERED: Artificial Tears 18 DROP/0.9 ML EA EYE PRN (11:44)
[2019-09-26] MEDS ORDERED: Loperamide HCl 2 MG CAP PO PRN (11:44)
[2019-09-26] MEDS ORDERED: Bisacodyl 5 MG TAB PO PRN (11:44)
[2019-09-26] MEDS ORDERED: Sodium Chloride 0.65% Nasal 44 ML BOT EA NARE PRN (11:44)
[2019-09-26] MEDS ORDERED: Cepastat Lozenges 1 LOZ PO PRN (11:44)
[2019-09-26] MEDS ORDERED: Diabetic Tussin 200 MG/10 ML UDCUP PO PRN (11:44)
[2019-09-26] MEDS ORDERED: Calcium Carbonate 500 MG ChewTAB PO PRN (11:44)
[2019-09-26] MEDS ORDERED: Senokot S 8.6-50 MG TAB PO PRN (11:44)
[2019-09-26] MEDS: Metolazone 2.5 MG TAB PO SCH (13:03)
[2019-09-26] MEDS: Atorvastatin Calcium 40 MG TAB PO SCH (20:37)
[2019-09-27 05:07] LABS: Anion Gap 12 mmol/L (10-20); BUN (Urea Nitrogen) 28 mg/dL (8.4-25.7); Calc. Creatinine Clearance 176 mL/min (70-130); Calcium 8.7 mg/dL (7.8-10.44); Carbon Dioxide 30 mmol/L (23-31); Chloride 99 mmol/L (98-107); Estimated GFR-MDRD 82; Glucose 130 mg/dL (80-115); Potassium 4.5 mmol/L (3.5-5.1); Sodium 136 mmol/L (136-145)
[2019-09-27] MEDS: Furosemide 40 MG/4 ML VIAL SLOW IVP SCH ×2 (06:22→15:51)
[2019-09-27] MEDS: Aspirin 81 mg Enteric Coated Tablet PO SCH (09:16)
[2019-09-27] MEDS: Carvedilol 3.125 MG TAB PO SCH ×3 (09:16→21:15)
[2019-09-27] MEDS: Enoxaparin Sodium 40 MG/0.4 ML SYRINGE SC SCH (09:16)
[2019-09-27] MEDS: glipiZIDE 5 MG TAB PO SCH ×2 (09:17→18:05)
[2019-09-27] MEDS: Lisinopril 2.5 MG TAB PO SCH ×2 (09:17→21:15)
[2019-09-27] MEDS: Docusate 100 MG CAP PO SCH ×2 (09:18→21:15)
[2019-09-27] MEDS: Ammonium Lactate 12% Lotion 225 GM BOT TOP SCH ×2 (10:28→21:16)
[2019-09-27] MEDS: Metolazone 2.5 MG TAB PO SCH (12:43)
[2019-09-27] MEDS: HumaLOG 300 UNITS/3 ML VIAL SC PRN (12:43)
--- NOTE | 2019-09-27 12:58 | PDOC.HOSPP ---
- Subjective Encounter Date: 09/27/19 Encounter Time: 10:30 Subjective: pt up in bed no issues. - Objective Vital Signs & Weight: Vital Signs (12 hours) Temp Pulse Resp BP Pulse Ox 09/27/19 11:30 97.8 F 61 16 128/62 96 09/27/19 07:45 97.9 F 66 20 119/57 L 94 L 09/27/19 03:15 98.2 F 70 18 113/54 L 96 Weight Admit Weight 358 lb Weight 336 lb 8 oz I&O: 09/26/19 09/27/19 09/28/19 06:59 06:59 06:59 Intake Total 1421 960 Output Total 3000 8142 600 Balance -1579 -1510 -600 Result Diagrams: 09/22/19 09:34 09/27/19 04:17 Additional Labs: Accuchecks 09/27/19 09/27/19 09/26/19 10:32 05:51 20:04 POC Glucose 164 H 125 H 217 H 09/26/19 09/26/19 16:10 10:35 POC Glucose 141 H 152 H Hospitalist ROS - Review of Systems Cardiovascular: denies: chest pain, palpitations, orthopnea, paroxysmal noc. dyspnea, edema, light headedness, other Gastrointestinal: denies: nausea, vomiting, abdominal pain, diarrhea, constipation, melena, hematochezia, other Genitourinary: denies: dysuria, frequency, incontinence, hematuria, retention, other - Medication Medications: Active Medications Generic Name Dose Route Start Last Admin Trade Name Freq PRN Reason Stop Dose Admin Ammonium Lactate 0 gm 09/16/19 21:00 09/27/19 10:28 Laclotion TOP 225 gm BID JASON Administration Aspirin 81 mg 09/17/19 09:00 09/27/19 09:16 Ecotrin PO 81 mg DAILY JASON Administration Atorvastatin Calcium 40 mg 09/16/19 21:00 09/26/19 20:37 Lipitor PO 40 mg HS JASON Administration Carvedilol 3.125 mg 09/26/19 15:00 09/27/19 09:16 Coreg PO 3.125 mg TID JASON Administration Docusate Sodium 100 mg 09/20/19 21:00 09/27/19 09:18 Colace PO 100 mg BID JASON Administration Enoxaparin Sodium 40 mg 09/23/19 09:00 09/27/19 09:16 Lovenox SC 40 mg 0900 JASON Administration Furosemide 40 mg 09/17/19 06:00 09/27/19 06:22 Lasix SLOW IVP 40 mg 0600,1400 JASON Administration Glipizide 5 mg 09/16/19 08:00 09/27/19 09:17 Glucotrol PO 5 mg BID-WM JASON Administration Insulin Human Lispro 0 units 09/15/19 23:34 09/27/19 12:43 Humalog SC 2 units .MODERATE SLIDING SC PRN Administration MODERATE SLIDING SCALE Protocol Insulin Human Lispro 0 units 09/15/19 23:34 09/24/19 20:48 Humalog SC 2 unit .BEDTIME SLIDING SC PRN Administration BEDTIME SLIDING SCALE Protocol Lisinopril 2.5 mg 09/21/19 21:00 09/27/19 09:17 Zestril PO 2.5 mg BID JASON Administration Metolazone 2.5 mg 09/25/19 13:30 09/27/19 12:43 Zaroxolyn PO 09/27/19 14:00 2.5 mg 1330 JASON Administration Ondansetron HCl 4 mg 09/15/19 23:38 09/23/19 20:35 Zofran Odt SL 4 mg Q6H PRN Administration Nausea/Vomiting Saccharomyces Boulardii 250 mg 09/19/19 09:00 09/26/19 07:27 Florastor PO 250 mg DAILY JASON Administration Sodium Chloride 10 ml 09/19/19 09:00 09/27/19 09:16 Flush - Normal Saline IVF 10 ml Q12HR JASON Administration Sodium Chloride 10 ml 09/19/19 07:53 09/27/19 06:22 Flush - Normal Saline IVF 10 ml PRN PRN Administration Saline Flush - Exam Neck: negative: supple, symmetric, no JVD, no thyromegaly, no lymphadenopathy, no carotid bruit, JVD Heart: negative: RRR, no murmur, no gallops, no rubs, normal peripheral pulses, irregular, diminshed peripheral pulses, murmur present, II/IV, III/IV Respiratory: negative: CTAB, no wheezes, no rales, no ronchi, normal chest expansion, no tachypnea, normal percussion, rales, rhonchi, tachypneic, wheezes Gastrointestinal: negative: soft, non-tender, non-distended, normal bowel sounds , no palpable masses, no hepatomegaly, no splenomegaly, no bruit, no guarding, no rigidity, tender to palpation, distended, diminished bowl sounds, voluntary guarding Extremities: 2+ LE edema Hosp A/P (1) Acute on chronic systolic heart failure, NYHA class 3 Code(s): I50.23 - ACUTE ON CHRONIC SYSTOLIC (CONGESTIVE) HEART FAILURE Status : Acute (2) Morbid obesity with BMI of 50.0-59.9, adult Code(s): E66.01 - MORBID (SEVERE) OBESITY DUE TO EXCESS CALORIES; Z68.43 - BODY MASS INDEX (BMI) 50.0-59.9, ADULT Status: Chronic (3) CAD (coronary artery disease) Code(s): I25.10 - ATHSCL HEART DISEASE OF [place] CORONARY ARTERY W/O ANG PCTRS Status: Chronic Qualifiers: (4) Diabetes type 2, controlled Code(s): E11.9 - TYPE 2 DIABETES MELLITUS WITHOUT COMPLICATIONS Status: Chronic (5) Dyslipidemia Code(s): E78.5 - HYPERLIPIDEMIA, UNSPECIFIED Status: Chronic (6) HTN (hypertension) Code(s): I10 - ESSENTIAL (PRIMARY) HYPERTENSION Status: Chronic Qualifiers: (7) Lymph node disorder Code(s): I89.9 - NONINFECTIVE DISORDER OF LYMPHATIC VESSELS AND NODES, UNSP Status: Acute (8) Pneumonia, community acquired Code(s): J18.9 - PNEUMONIA, UNSPECIFIED ORGANISM Status: Acute - Plan pt's lower ext wrapped, will continue Lasix and dobutamine drip. Per notes pt has refused AICD and does not want a life vest. multiple lymph nodes noted in ctabd/pel will check ldh. pt denies any night sweat nor any weight loss. He will most likely need a follow up outpatient. will stop abx. will get cbc. per nursing he had some hemoptysis. will change his full dose lovonox to dvt ppx. 09/22 pt off dobutamine will monitor. will continue iv lasix. will call his niece and update her. 09/23 electrolytes stable. Talked to pt about aicd he does not want it. may add zaroxolyn for better diuresis. discharge when ok with cardiology. 09/24 Has not lost much weight. zaroxolyn added. spoke with cardio no procedure recommended. will monitor. electrolytes stable. 09/26 will change zaroxlyn to am. will continue to monitor electrolytes daily. will try to wean off oxygen. possible home in the next 24-48hr.
[2019-09-27] MEDS: Atorvastatin Calcium 40 MG TAB PO SCH (21:15)
[2019-09-28] MEDS: Metolazone 2.5 MG TAB PO SCH (05:14)
[2019-09-28] MEDS: Furosemide 40 MG/4 ML VIAL SLOW IVP SCH ×2 (05:14→14:53)
[2019-09-28 05:16] LABS: Anion Gap 12 mmol/L (10-20); BUN (Urea Nitrogen) 29 mg/dL (8.4-25.7); Calc. Creatinine Clearance 174 mL/min (70-130); Calcium 8.4 mg/dL (7.8-10.44); Carbon Dioxide 30 mmol/L (23-31); Chloride 98 mmol/L (98-107); Estimated GFR-MDRD 81; Glucose 98 mg/dL (80-115); Sodium 136 mmol/L (136-145)
[2019-09-28] MEDS: Aspirin 81 mg Enteric Coated Tablet PO SCH (08:45)
[2019-09-28] MEDS: Lisinopril 2.5 MG TAB PO SCH ×2 (08:45→20:02)
[2019-09-28] MEDS: Docusate 100 MG CAP PO SCH ×2 (08:45→20:02)
[2019-09-28] MEDS: glipiZIDE 5 MG TAB PO SCH ×2 (08:45→16:35)
[2019-09-28] MEDS: Saccharomyces boulardii 250 MG CAP PO SCH (08:45)
[2019-09-28] MEDS: Enoxaparin Sodium 40 MG/0.4 ML SYRINGE SC SCH (08:46)
[2019-09-28] MEDS: Carvedilol 3.125 MG TAB PO SCH ×3 (08:46→20:02)
[2019-09-28] MEDS: Ammonium Lactate 12% Lotion 225 GM BOT TOP SCH ×2 (08:46→20:02)
[2019-09-28] MEDS ORDERED: Spironolactone 25 MG TAB PO SCH (10:30)
[2019-09-28] MEDS ORDERED: Famotidine/PF 20 mg/2ml Vial SLOW IVP SCH (10:45)
[2019-09-28 11:25] LABS: Troponin I 0.041 ng/mL (< 0.028)
[2019-09-28] MEDS: HumaLOG 300 UNITS/3 ML VIAL SC PRN (11:26)
--- NOTE | 2019-09-28 16:06 | PDOC.HOSPP ---
- Subjective Encounter Date: 09/28/19 Encounter Time: 10:30 Subjective: pt up in chair feels better today but complains of pain to his epigastric area - Objective Vital Signs & Weight: Vital Signs (12 hours) Temp Pulse Pulse Pulse Resp BP BP 09/28/19 11:30 97.6 F 67 20 09/28/19 10:52 77 68 124/56 L 132/67 09/28/19 07:15 98.1 F 74 16 BP BP Pulse Ox Pulse Ox Pulse Ox Pulse Ox 09/28/19 11:30 124/56 L 98 09/28/19 10:52 91 L 92 L 96 09/28/19 07:15 127/59 L 94 L Weight Admit Weight 358 lb Weight 326 lb 4.8 oz I&O: 09/27/19 09/28/19 09/29/19 06:59 06:59 06:59 Intake Total 960 1437 Output Total 1511 5943 Balance -1515 -7839 Result Diagrams: 09/22/19 09:34 09/28/19 04:31 Additional Labs: Accuchecks 09/28/19 09/28/19 09/27/19 10:22 05:43 20:32 POC Glucose 154 H 103 169 H 09/27/19 16:22 POC Glucose 124 H Hospitalist ROS - Review of Systems Respiratory: denies: cough, dry, shortness of breath, hemoptysis, SOB with excertion, pleuritic pain, sputum, wheezing, other Cardiovascular: reports: other (epigastric pain) Gastrointestinal: denies: nausea, vomiting, abdominal pain, diarrhea, constipation, melena, hematochezia, other Genitourinary: denies: dysuria, frequency, incontinence, hematuria, retention, other - Medication Medications: Active Medications Generic Name Dose Route Start Last Admin Trade Name Freq PRN Reason Stop Dose Admin Ammonium Lactate 0 gm 09/16/19 21:00 09/28/19 08:46 Laclotion TOP 225 gm BID JASON Administration Aspirin 81 mg 09/17/19 09:00 09/28/19 08:45 Ecotrin PO 81 mg DAILY JASON Administration Atorvastatin Calcium 40 mg 09/16/19 21:00 09/27/19 21:15 Lipitor PO 40 mg HS JASON Administration Bisacodyl 10 mg 09/26/19 11:44 09/28/19 11:27 Dulcolax PO 10 mg DAILYPRN PRN Administration Constipation Carvedilol 3.125 mg 09/26/19 15:00 09/28/19 14:53 Coreg PO 3.125 mg TID JASON Administration Docusate Sodium 100 mg 09/20/19 21:00 09/28/19 08:45 Colace PO 100 mg BID JASON Administration Enoxaparin Sodium 40 mg 09/23/19 09:00 09/28/19 08:46 Lovenox SC 40 mg 0900 JASON Administration Furosemide 40 mg 09/17/19 06:00 09/28/19 14:53 Lasix SLOW IVP 40 mg 0600,1400 JASON Administration Glipizide 5 mg 09/16/19 08:00 09/28/19 08:45 Glucotrol PO 5 mg BID-WM JASON Administration Insulin Human Lispro 0 units 09/15/19 23:34 09/28/19 11:26 Humalog SC 2 units .MODERATE SLIDING SC PRN Administration MODERATE SLIDING SCALE Protocol Insulin Human Lispro 0 units 09/15/19 23:34 09/24/19 20:48 Humalog SC 2 unit .BEDTIME SLIDING SC PRN Administration BEDTIME SLIDING SCALE Protocol Lisinopril 2.5 mg 09/21/19 21:00 09/28/19 08:45 Zestril PO 2.5 mg BID JASON Administration Metolazone 2.5 mg 09/28/19 06:00 09/28/19 05:14 Zaroxolyn PO 2.5 mg 0600 JASON Administration Ondansetron HCl 4 mg 09/15/19 23:38 09/23/19 20:35 Zofran Odt SL 4 mg Q6H PRN Administration Nausea/Vomiting Saccharomyces Boulardii 250 mg 09/19/19 09:00 09/28/19 08:45 Florastor PO 250 mg DAILY JASON Administration Sodium Chloride 10 ml 09/19/19 09:00 09/28/19 08:46 Flush - Normal Saline IVF 10 ml Q12HR JASON Administration Sodium Chloride 10 ml 09/19/19 07:53 09/27/19 06:22 Flush - Normal Saline IVF 10 ml PRN PRN Administration Saline Flush - Exam Neck: negative: supple, symmetric, no JVD, no thyromegaly, no lymphadenopathy, no carotid bruit, JVD Heart: negative: RRR, no murmur, no gallops, no rubs, normal peripheral pulses, irregular, diminshed peripheral pulses, murmur present, II/IV, III/IV Respiratory: negative: CTAB, no wheezes, no rales, no ronchi, normal chest expansion, no tachypnea, normal percussion, rales, rhonchi, tachypneic, wheezes Gastrointestinal: soft, normal bowel sounds Extremities: 2+ LE edema Skin - other findings: venous changes to lower ext Hosp A/P (1) Acute on chronic systolic heart failure, NYHA class 3 Code(s): I50.23 - ACUTE ON CHRONIC SYSTOLIC (CONGESTIVE) HEART FAILURE Status : Acute (2) Morbid obesity with BMI of 50.0-59.9, adult Code(s): E66.01 - MORBID (SEVERE) OBESITY DUE TO EXCESS CALORIES; Z68.43 - BODY MASS INDEX (BMI) 50.0-59.9, ADULT Status: Chronic (3) CAD (coronary artery disease) Code(s): I25.10 - ATHSCL HEART DISEASE OF [place] CORONARY ARTERY W/O ANG PCTRS Status: Chronic Qualifiers: (4) Diabetes type 2, controlled Code(s): E11.9 - TYPE 2 DIABETES MELLITUS WITHOUT COMPLICATIONS Status: Chronic (5) Dyslipidemia Code(s): E78.5 - HYPERLIPIDEMIA, UNSPECIFIED Status: Chronic (6) HTN (hypertension) Code(s): I10 - ESSENTIAL (PRIMARY) HYPERTENSION Status: Chronic Qualifiers: (7) Lymph node disorder Code(s): I89.9 - NONINFECTIVE DISORDER OF LYMPHATIC VESSELS AND NODES, UNSP Status: Acute (8) Pneumonia, community acquired Code(s): J18.9 - PNEUMONIA, UNSPECIFIED ORGANISM Status: Acute - Plan pt's lower ext wrapped, will continue Lasix and dobutamine drip. Per notes pt has refused AICD and does not want a life vest. multiple lymph nodes noted in ctabd/pel will check ldh. pt denies any night sweat nor any weight loss. He will most likely need a follow up outpatient. will stop abx. will get cbc. per nursing he had some hemoptysis. will change his full dose lovonox to dvt ppx. 5/3 pt off dobutamine will monitor. will continue iv lasix. will call his niece and update her. 09/23 electrolytes stable. Talked to pt about aicd he does not want it. may add zaroxolyn for better diuresis. discharge when ok with cardiology. 09/24 Has not lost much weight. zaroxolyn added. spoke with cardio no procedure recommended. will monitor. electrolytes stable. 09/26 will change zaroxlyn to am. will continue to monitor electrolytes daily. will try to wean off oxygen. possible home in the next 24-48hr. 09/27 spoke with cardiology who wants pt to stay over the weekend for better diuresis. pt is noncompliant and does not follow up at the clinic. He also does not want a AICD. He has been loosing weight with zaroxlyn. will monitor bmp daily.
[2019-09-28] MEDS: Atorvastatin Calcium 40 MG TAB PO SCH (20:02)
[2019-09-29] MEDS: Furosemide 40 MG/4 ML VIAL SLOW IVP SCH ×2 (05:09→13:55)
[2019-09-29] MEDS: Metolazone 2.5 MG TAB PO SCH (05:09)
[2019-09-29 05:16] LABS: Anion Gap 11 mmol/L (10-20); BUN (Urea Nitrogen) 27 mg/dL (8.4-25.7); Calc. Creatinine Clearance 152 mL/min (70-130); Calcium 8.9 mg/dL (7.8-10.44); Carbon Dioxide 30 mmol/L (23-31); Chloride 98 mmol/L (98-107); Estimated GFR-MDRD 72; Glucose 147 mg/dL (80-115); Magnesium 2.2 mg/dL (1.6-2.6); Potassium 4.4 mmol/L (3.5-5.1); Sodium 135 mmol/L (136-145)
[2019-09-29] MEDS: glipiZIDE 5 MG TAB PO SCH ×2 (10:55→16:29)
[2019-09-29] MEDS: Spironolactone 25 MG TAB PO SCH (10:55)
[2019-09-29] MEDS: Lisinopril 2.5 MG TAB PO SCH ×2 (10:56→20:25)
[2019-09-29] MEDS: Ammonium Lactate 12% Lotion 225 GM BOT TOP SCH ×2 (10:56→20:24)
[2019-09-29] MEDS: Aspirin 81 mg Enteric Coated Tablet PO SCH (10:56)
[2019-09-29] MEDS: Carvedilol 3.125 MG TAB PO SCH ×3 (10:56→20:25)
[2019-09-29] MEDS: Docusate 100 MG CAP PO SCH ×2 (10:56→20:25)
[2019-09-29] MEDS: Enoxaparin Sodium 40 MG/0.4 ML SYRINGE SC SCH (10:57)
[2019-09-29] MEDS: Saccharomyces boulardii 250 MG CAP PO SCH (10:57)
--- NOTE | 2019-09-29 13:30 | PDOC.HOSPP ---
- Subjective Encounter Date: 09/29/19 Encounter Time: 13:28 Subjective: Mr. Fu was seen today in follow-up of CHF exacerbation. He does not have any complaints. He says he is breathing better. No new complaints. - Objective Vital Signs & Weight: Vital Signs (12 hours) Temp Pulse Pulse Pulse Resp BP BP 09/29/19 11:30 98.1 F 71 20 09/29/19 10:56 76 09/29/19 10:26 80 70 133/72 137/67 09/29/19 07:21 97.5 F L 76 20 09/29/19 03:27 98.3 F 71 16 BP Pulse Ox Pulse Ox Pulse Ox 09/29/19 11:30 131/64 95 09/29/19 10:56 09/29/19 10:26 91 L 92 L 09/29/19 07:21 146/68 H 94 L 09/29/19 03:27 128/60 93 L Weight Admit Weight 358 lb Weight 319 lb 9.6 oz I&O: 09/28/19 09/29/19 09/30/19 06:59 06:59 06:59 Intake Total 1437 1100 240 Output Total 3275 1300 Balance -1838 -200 240 Result Diagrams: 09/22/19 09:34 09/29/19 04:41 Additional Labs: Accuchecks 09/29/19 09/28/19 09/28/19 10:28 20:05 16:38 POC Glucose 187 H 152 H 141 H Hospitalist ROS - Medication Medications: Active Medications Generic Name Dose Route Start Last Admin Trade Name Freq PRN Reason Stop Dose Admin Ammonium Lactate 0 gm 09/16/19 21:00 09/29/19 10:56 Laclotion TOP 225 gm BID JASON Administration Aspirin 81 mg 09/17/19 09:00 09/29/19 10:56 Ecotrin PO 81 mg DAILY JASON Administration Atorvastatin Calcium 40 mg 09/16/19 21:00 09/28/19 20:02 Lipitor PO 40 mg HS JASON Administration Bisacodyl 10 mg 09/26/19 11:44 09/28/19 11:27 Dulcolax PO 10 mg DAILYPRN PRN Administration Constipation Carvedilol 3.125 mg 09/26/19 15:00 09/29/19 10:56 Coreg PO 3.125 mg TID JASON Administration Docusate Sodium 100 mg 09/20/19 21:00 09/29/19 10:56 Colace PO 100 mg BID JASON Administration Enoxaparin Sodium 40 mg 09/23/19 09:00 09/29/19 10:57 Lovenox SC 40 mg 0900 JASON Administration Furosemide 40 mg 09/17/19 06:00 09/29/19 05:09 Lasix SLOW IVP 40 mg 0600,1400 JASON Administration Glipizide 5 mg 09/16/19 08:00 09/29/19 10:55 Glucotrol PO 5 mg BID-WM JASON Administration Insulin Human Lispro 0 units 09/15/19 23:34 09/28/19 11:26 Humalog SC 2 units .MODERATE SLIDING SC PRN Administration MODERATE SLIDING SCALE Protocol Insulin Human Lispro 0 units 09/15/19 23:34 09/24/19 20:48 Humalog SC 2 unit .BEDTIME SLIDING SC PRN Administration BEDTIME SLIDING SCALE Protocol Lisinopril 2.5 mg 09/21/19 21:00 09/29/19 10:56 Zestril PO 2.5 mg BID JASON Administration Metolazone 2.5 mg 09/28/19 06:00 09/29/19 05:09 Zaroxolyn PO 2.5 mg 0600 JASON Administration Ondansetron HCl 4 mg 09/15/19 23:38 09/23/19 20:35 Zofran Odt SL 4 mg Q6H PRN Administration Nausea/Vomiting Saccharomyces Boulardii 250 mg 09/19/19 09:00 09/29/19 10:57 Florastor PO 250 mg DAILY JASON Administration Sodium Chloride 10 ml 09/19/19 09:00 09/29/19 11:00 Flush - Normal Saline IVF 10 ml Q12HR JASON Administration Sodium Chloride 10 ml 09/19/19 07:53 09/27/19 06:22 Flush - Normal Saline IVF 10 ml PRN PRN Administration Saline Flush Spironolactone 25 mg 09/29/19 08:00 09/29/19 10:55 Aldactone PO 25 mg QAM-WM JASON Administration - Exam Eye: PERRL Heart: RRR, no murmur, no gallops, no rubs, normal peripheral pulses Respiratory: CTAB (with the exception of some basilar rales), no wheezes Gastrointestinal: soft, non-tender, non-distended, normal bowel sounds, no palpable masses, no hepatomegaly, no splenomegaly Extremities: no cyanosis, no edema Hosp A/P (1) Acute on chronic systolic heart failure, NYHA class 3 Code(s): I50.23 - ACUTE ON CHRONIC SYSTOLIC (CONGESTIVE) HEART FAILURE Status : Acute (2) Pneumonia, community acquired Code(s): J18.9 - PNEUMONIA, UNSPECIFIED ORGANISM Status: Acute (3) Acute and chronic respiratory failure Code(s): J96.20 - ACUTE AND CHR RESP FAILURE, UNSP W HYPOXIA OR HYPERCAPNIA Status: Acute (4) Morbid obesity with BMI of 50.0-59.9, adult Code(s): E66.01 - MORBID (SEVERE) OBESITY DUE TO EXCESS CALORIES; Z68.43 - BODY MASS INDEX (BMI) 50.0-59.9, ADULT Status: Chronic (5) CAD (coronary artery disease) Code(s): I25.10 - ATHSCL HEART DISEASE OF [place] CORONARY ARTERY W/O ANG PCTRS Status: Chronic Qualifiers: (6) Diabetes type 2, controlled Code(s): E11.9 - TYPE 2 DIABETES MELLITUS WITHOUT COMPLICATIONS Status: Chronic (7) HTN (hypertension) Code(s): I10 - ESSENTIAL (PRIMARY) HYPERTENSION Status: Chronic Qualifiers: - Plan * Acute on chronic systolic heart failure continue Lasix and Metolazone ans Spironolactone * He has diuresed well with this regimen * HTN- blood pressure is stable * DM- blood glucose is stable * Disposition as per Cardiology
--- NOTE | 2019-09-29 13:33 | PRG ---
DATE OF SERVICE: 09/29/2019 SUBJECTIVE: Mr. Fu is doing well. He continues to diurese. No chest pain. OBJECTIVE: VITAL SIGNS: Blood pressure 130/64 and pulse 70. LUNGS: Clear. CARDIAC: Normal S1 and normal S2. ABDOMEN: Soft and nontender. EXTREMITIES: Still jhrdfybj-yj-yajamd edema. PERTINENT LABORATORY DATA: Hemoglobin was 11.8 on the 2nd. Potassium is 4.4, BUN is 27, and creatinine 1.04. ASSESSMENT: Congestive heart failure, systolic, improving, but still volume overloaded. PLAN: Continue intravenous diuresis. Job ID: [id number]
[2019-09-29] MEDS: Atorvastatin Calcium 40 MG TAB PO SCH (20:25)
[2019-09-29] MEDS: HumaLOG 300 UNITS/3 ML VIAL SC PRN (20:41)
[2019-09-30 05:16] LABS: Anion Gap 14 mmol/L (10-20); BUN (Urea Nitrogen) 25 mg/dL (8.4-25.7); Calc. Creatinine Clearance 166 mL/min (70-130); Calcium 8.9 mg/dL (7.8-10.44); Carbon Dioxide 27 mmol/L (23-31); Chloride 99 mmol/L (98-107); Estimated GFR-MDRD 83; Glucose 134 mg/dL (80-115); Potassium 4.2 mmol/L (3.5-5.1); Sodium 136 mmol/L (136-145)
[2019-09-30] MEDS: Metolazone 2.5 MG TAB PO SCH (05:54)
[2019-09-30] MEDS: Furosemide 40 MG/4 ML VIAL SLOW IVP SCH ×2 (05:54→14:45)
[2019-09-30] MEDS: HumaLOG 300 UNITS/3 ML VIAL SC PRN ×2 (06:13→20:26)
[2019-09-30] MEDS: Lisinopril 2.5 MG TAB PO SCH ×2 (08:02→20:23)
[2019-09-30] MEDS: Saccharomyces boulardii 250 MG CAP PO SCH (08:02)
[2019-09-30] MEDS: glipiZIDE 5 MG TAB PO SCH ×2 (08:02→16:21)
[2019-09-30] MEDS: Docusate 100 MG CAP PO SCH ×2 (08:02→20:24)
[2019-09-30] MEDS: Carvedilol 3.125 MG TAB PO SCH ×3 (08:02→20:24)
[2019-09-30] MEDS: Spironolactone 25 MG TAB PO SCH (08:02)
[2019-09-30] MEDS: Aspirin 81 mg Enteric Coated Tablet PO SCH (08:02)
[2019-09-30] MEDS: Enoxaparin Sodium 40 MG/0.4 ML SYRINGE SC SCH (08:02)
[2019-09-30] MEDS: Ammonium Lactate 12% Lotion 225 GM BOT TOP SCH ×2 (11:25→20:24)
--- NOTE | 2019-09-30 15:23 | PRG ---
DATE OF SERVICE: 09/30/2019 SUBJECTIVE: Tank is overall doing better. He had a good diuresis yesterday. OBJECTIVE: VITAL SIGNS: Blood pressure 119/60 and pulse 70. LUNGS: Clear. CARDIAC: Normal S1. Normal S2. ABDOMEN: Soft and nontender. EXTREMITIES: Only mild edema. I AND O: -2 L. ASSESSMENT: Congestive heart failure, systolic, improved. PLAN: He should most likely be able to be released home tomorrow. Dr. Maedra will see him tomorrow morning. Job ID: [id number]
--- NOTE | 2019-09-30 17:14 | PDOC.HOSPP ---
- Subjective Encounter Date: 09/30/19 Encounter Time: 17:13 Subjective: Mr. Fu was seen today in follow-up of CHF exacerbation. He does not have any complaints. He says he feels much better. - Objective Vital Signs & Weight: Vital Signs (12 hours) Temp Pulse Resp BP Pulse Ox 09/30/19 16:00 97.8 F 62 20 129/60 95 09/30/19 11:30 97.5 F L 69 18 119/60 97 09/30/19 08:05 97.8 F 76 18 112/57 L 93 L 09/30/19 08:02 68 Weight Admit Weight 358 lb Weight 315 lb 11.2 oz I&O: 09/29/19 09/30/19 10/01/19 06:59 06:59 06:59 Intake Total 1100 480 720 Output Total 1300 4285 0540 Balance -200 -2035 -2230 Result Diagrams: 09/22/19 09:34 09/30/19 04:43 Additional Labs: Accuchecks 09/30/19 09/30/19 09/29/19 11:31 06:09 20:34 POC Glucose 149 H 213 H 263 H Hospitalist ROS - Medication Medications: Active Medications Generic Name Dose Route Start Last Admin Trade Name Freq PRN Reason Stop Dose Admin Ammonium Lactate 0 gm 09/16/19 21:00 09/30/19 11:25 Laclotion TOP 225 gm BID JASON Administration Aspirin 81 mg 09/17/19 09:00 09/30/19 08:02 Ecotrin PO 81 mg DAILY JASON Administration Atorvastatin Calcium 40 mg 09/16/19 21:00 09/29/19 20:25 Lipitor PO 40 mg HS JASON Administration Bisacodyl 10 mg 09/26/19 11:44 09/28/19 11:27 Dulcolax PO 10 mg DAILYPRN PRN Administration Constipation Carvedilol 3.125 mg 09/26/19 15:00 09/30/19 14:45 Coreg PO 3.125 mg TID JASON Administration Docusate Sodium 100 mg 09/20/19 21:00 09/30/19 08:02 Colace PO 100 mg BID JASON Administration Enoxaparin Sodium 40 mg 09/23/19 09:00 09/30/19 08:02 Lovenox SC 40 mg 0900 JASON Administration Furosemide 40 mg 09/17/19 06:00 09/30/19 14:45 Lasix SLOW IVP 40 mg 0600,1400 JASON Administration Glipizide 5 mg 09/16/19 08:00 09/30/19 16:21 Glucotrol PO 5 mg BID-WM JASON Administration Insulin Human Lispro 0 units 09/15/19 23:34 09/30/19 06:13 Humalog SC 4 units .MODERATE SLIDING SC PRN Administration MODERATE SLIDING SCALE Protocol Insulin Human Lispro 0 units 09/15/19 23:34 09/29/19 20:41 Humalog SC 3 unit .BEDTIME SLIDING SC PRN Administration BEDTIME SLIDING SCALE Protocol Lisinopril 2.5 mg 09/21/19 21:00 09/30/19 08:02 Zestril PO 2.5 mg BID JASON Administration Metolazone 2.5 mg 09/28/19 06:00 09/30/19 05:54 Zaroxolyn PO 2.5 mg 0600 JASON Administration Ondansetron HCl 4 mg 09/15/19 23:38 09/23/19 20:35 Zofran Odt SL 4 mg Q6H PRN Administration Nausea/Vomiting Saccharomyces Boulardii 250 mg 09/19/19 09:00 09/30/19 08:02 Florastor PO 250 mg DAILY JASON Administration Sodium Chloride 10 ml 09/19/19 09:00 09/30/19 08:03 Flush - Normal Saline IVF Not Given Q12HR JASON Sodium Chloride 10 ml 09/19/19 07:53 09/29/19 13:56 Flush - Normal Saline IVF 10 ml PRN PRN Administration Saline Flush Spironolactone 25 mg 09/29/19 08:00 09/30/19 08:02 Aldactone PO 25 mg QAM-WM JASON Administration - Exam Eye: PERRL, anicteric sclera Heart: RRR, no murmur, no gallops, no rubs, normal peripheral pulses Respiratory: CTAB (with occasional rales at the bases), no rales, no ronchi Gastrointestinal: soft, non-tender, non-distended, normal bowel sounds, no palpable masses, no hepatomegaly Extremities: no cyanosis, 2+ LE edema (is much improved, the erythema has also improved in his lower extremities as well) Hosp A/P (1) Acute on chronic systolic heart failure, NYHA class 3 Code(s): I50.23 - ACUTE ON CHRONIC SYSTOLIC (CONGESTIVE) HEART FAILURE Status : Acute (2) Pneumonia, community acquired Code(s): J18.9 - PNEUMONIA, UNSPECIFIED ORGANISM Status: Acute (3) Acute and chronic respiratory failure Code(s): J96.20 - ACUTE AND CHR RESP FAILURE, UNSP W HYPOXIA OR HYPERCAPNIA Status: Acute (4) Morbid obesity with BMI of 50.0-59.9, adult Code(s): E66.01 - MORBID (SEVERE) OBESITY DUE TO EXCESS CALORIES; Z68.43 - BODY MASS INDEX (BMI) 50.0-59.9, ADULT Status: Chronic (5) CAD (coronary artery disease) Code(s): I25.10 - ATHSCL HEART DISEASE OF [place] CORONARY ARTERY W/O ANG PCTRS Status: Chronic Qualifiers: (6) Diabetes type 2, controlled Code(s): E11.9 - TYPE 2 DIABETES MELLITUS WITHOUT COMPLICATIONS Status: Chronic (7) HTN (hypertension) Code(s): I10 - ESSENTIAL (PRIMARY) HYPERTENSION Status: Chronic Qualifiers: - Plan * Acute on chronic systolic heart failure continue Lasix and Metolazone ans Spironolactone * Continue diuresing * HTN- blood pressure is stable * DM- blood glucose is stable * Hopefully home in the AM
[2019-09-30] MEDS: Atorvastatin Calcium 40 MG TAB PO SCH (20:24)
[2019-10-01] MEDS: Furosemide 40 MG/4 ML VIAL SLOW IVP SCH ×2 (05:44→15:51)
[2019-10-01] MEDS: Metolazone 2.5 MG TAB PO SCH (05:44)
[2019-10-01] MEDS: HumaLOG 300 UNITS/3 ML VIAL SC PRN (05:47)
[2019-10-01 06:01] LABS: Anion Gap 11 mmol/L (10-20); BUN (Urea Nitrogen) 29 mg/dL (8.4-25.7); Calc. Creatinine Clearance 144 mL/min (70-130); Calcium 8.9 mg/dL (7.8-10.44); Carbon Dioxide 29 mmol/L (23-31); Chloride 100 mmol/L (98-107); Estimated GFR-MDRD 71; Glucose 146 mg/dL (80-115); Potassium 4.4 mmol/L (3.5-5.1); Sodium 136 mmol/L (136-145)
[2019-10-01] MEDS: Lisinopril 2.5 MG TAB PO SCH (07:54)
[2019-10-01] MEDS: Enoxaparin Sodium 40 MG/0.4 ML SYRINGE SC SCH (07:54)
[2019-10-01] MEDS: Saccharomyces boulardii 250 MG CAP PO SCH (07:55)
[2019-10-01] MEDS: Spironolactone 25 MG TAB PO SCH (07:55)
[2019-10-01] MEDS: Aspirin 81 mg Enteric Coated Tablet PO SCH (07:55)
[2019-10-01] MEDS: Docusate 100 MG CAP PO SCH (07:55)
[2019-10-01] MEDS: glipiZIDE 5 MG TAB PO SCH (07:55)
[2019-10-01] MEDS: Carvedilol 3.125 MG TAB PO SCH ×2 (07:55→15:51)
--- NOTE | 2019-10-01 11:45 | PDOC.HOSPP ---
- Subjective Encounter Date: 10/01/19 Encounter Time: 09:00 Subjective: Mr Fu is seen this morning as a follow up for CHF exacerbation. No overnight events noted. He states he is ready to go home and feels better. - Objective Vital Signs & Weight: Vital Signs (12 hours) Temp Pulse Pulse Pulse Resp BP BP 10/01/19 10:53 68 70 112/58 L 114/63 10/01/19 07:55 97.8 F 74 16 10/01/19 04:00 98.3 F 76 20 BP BP Pulse Ox Pulse Ox Pulse Ox 10/01/19 10:53 95 94 L 10/01/19 07:55 130/59 L 93 L 10/01/19 04:00 132/61 94 L Weight Admit Weight 358 lb Weight 312 lb 4.8 oz I&O: 09/30/19 10/01/19 10/02/19 06:59 06:59 06:59 Intake Total 480 1170 Output Total 5477 4600 Balance - -7108 Result Diagrams: 09/22/19 09:34 10/01/19 05:21 Additional Labs: Accuchecks 10/01/19 09/30/19 09/30/19 10:26 19:53 17:01 POC Glucose 145 H 201 H 161 H EKG Reviewed by me: Yes Hospitalist ROS - Medication Medications: Active Medications Generic Name Dose Route Start Last Admin Trade Name Freq PRN Reason Stop Dose Admin Ammonium Lactate 0 gm 09/16/19 21:00 09/30/19 20:24 Laclotion TOP 1 gm BID JASON Administration Aspirin 81 mg 09/17/19 09:00 10/01/19 07:55 Ecotrin PO 81 mg DAILY JASON Administration Atorvastatin Calcium 40 mg 09/16/19 21:00 09/30/19 20:24 Lipitor PO 40 mg HS JASON Administration Bisacodyl 10 mg 09/26/19 11:44 09/28/19 11:27 Dulcolax PO 10 mg DAILYPRN PRN Administration Constipation Carvedilol 3.125 mg 09/26/19 15:00 10/01/19 07:55 Coreg PO 3.125 mg TID JASON Administration Docusate Sodium 100 mg 09/20/19 21:00 10/01/19 07:55 Colace PO 100 mg BID JASON Administration Enoxaparin Sodium 40 mg 09/23/19 09:00 10/01/19 07:54 Lovenox SC 40 mg 0900 JASON Administration Furosemide 40 mg 09/17/19 06:00 10/01/19 05:44 Lasix SLOW IVP 40 mg 0600,1400 JASNO Administration Glipizide 5 mg 09/16/19 08:00 10/01/19 07:55 Glucotrol PO 5 mg BID-WM JASON Administration Insulin Human Lispro 0 units 09/15/19 23:34 10/01/19 05:47 Humalog SC 2 units .MODERATE SLIDING SC PRN Administration MODERATE SLIDING SCALE Protocol Insulin Human Lispro 0 units 09/15/19 23:34 09/30/19 20:26 Humalog SC 2 unit .BEDTIME SLIDING SC PRN Administration BEDTIME SLIDING SCALE Protocol Lisinopril 2.5 mg 09/21/19 21:00 10/01/19 07:54 Zestril PO 2.5 mg BID JASON Administration Metolazone 2.5 mg 09/28/19 06:00 10/01/19 05:44 Zaroxolyn PO 2.5 mg 0600 JASON Administration Ondansetron HCl 4 mg 09/15/19 23:38 09/23/19 20:35 Zofran Odt SL 4 mg Q6H PRN Administration Nausea/Vomiting Saccharomyces Boulardii 250 mg 09/19/19 09:00 10/01/19 07:55 Florastor PO 250 mg DAILY JASON Administration Sodium Chloride 10 ml 09/19/19 09:00 09/30/19 21:11 Flush - Normal Saline IVF Not Given Q12HR JASON Sodium Chloride 10 ml 09/19/19 07:53 10/01/19 05:44 Flush - Normal Saline IVF 10 ml PRN PRN Administration Saline Flush Spironolactone 25 mg 09/29/19 08:00 10/01/19 07:55 Aldactone PO 25 mg QAM-WM JASON Administration - Exam General Appearance: NAD, awake alert Eye: PERRL, anicteric sclera Neck: supple, symmetric, no JVD, no lymphadenopathy Heart: RRR, no murmur, no gallops, no rubs Respiratory: CTAB, no wheezes, no rales Gastrointestinal: soft, non-tender, non-distended, normal bowel sounds Extremities: 2+ LE edema Extremities - other findings: light compression wraps to BLE Skin: normal turgor, no lesions, no rashes Neurological: no focal deficits Psychiatric: normal affect, normal behavior Hosp A/P (1) Acute on chronic systolic heart failure, NYHA class 3 Code(s): I50.23 - ACUTE ON CHRONIC SYSTOLIC (CONGESTIVE) HEART FAILURE Status : Acute (2) Acute and chronic respiratory failure Code(s): J96.20 - ACUTE AND CHR RESP FAILURE, UNSP W HYPOXIA OR HYPERCAPNIA Status: Acute (3) Pneumonia, community acquired Code(s): J18.9 - PNEUMONIA, UNSPECIFIED ORGANISM Status: Acute (4) Morbid obesity with BMI of 50.0-59.9, adult Code(s): E66.01 - MORBID (SEVERE) OBESITY DUE TO EXCESS CALORIES; Z68.43 - BODY MASS INDEX (BMI) 50.0-59.9, ADULT Status: Chronic (5) CAD (coronary artery disease) Code(s): I25.10 - ATHSCL HEART DISEASE OF [place] CORONARY ARTERY W/O ANG PCTRS Status: Chronic Qualifiers: (6) Diabetes type 2, controlled Code(s): E11.9 - TYPE 2 DIABETES MELLITUS WITHOUT COMPLICATIONS Status: Chronic (7) HTN (hypertension) Code(s): I10 - ESSENTIAL (PRIMARY) HYPERTENSION Status: Chronic Qualifiers: - Plan CHF: Continue lasix and metolazone to continue diuresing HTN- Blood pressure stable DM- Blood sugars stable Home once cleared by cardiology
--- NOTE | 2019-10-01 14:53 | PDOC.EVN ---
Event Note - Event Note Event Note: Mr. Fu was seen and examined and discussed with Natalia DOMINGO. Agree with her assessment. He is feeling better today. He denies trouble breathing, denies chest pain. He has been ambulating, without difficulty. On exam he has a few rales at the bases, edema in both lower extremities, but thisis much improved, decreased erythema. Continue Lasix Zaroxolyn, and Spironolactone. DM, and HTN are controlled. Disposition as per Cardiology.
[2019-10-01] MEDS: Ammonium Lactate 12% Lotion 225 GM BOT TOP SCH (15:55)
[2019-10-01 16:56] VITALS: BP 121/57; TEMP 97.1
--- NOTE | 2019-10-02 07:42 | PQF ---
GIBSON MEADOWS TONI MD [id number] [facility]-235 [id number] CLINICAL DOCUMENTATION CLARIFICATION FORM: POST DISCHARGE Addendum to original discharge summary date: ____ Late entry note date: __ DATE:10/02/2019 ATTN: Artis Allen Please exercise your independent, professional judgment in responding to the clarification form. Clinical indicators are provided on the bottom of this form for your review Please check appropriate box(s) to clarify if the following diagnosis has been ruled in or ruled out: NSTEMI type II [X ] Ruled in diagnosis [ X] Continue to treat [ ] Resolved [ ] Ruled out diagnosis [ ] Cannot rule out diagnosis [ ] Other diagnosis [ ] Unable to determine In addition, please specify: Present on Admission (POA): [ X ] Yes [ ] No [ ] Unable to determine For continuity of documentation, please document condition throughout progress notes and discharge summary. Thank You. CLINICAL INDICATORS - SIGNS / SYMPTOMS / LABS Vital signs 09/15 BP 112/85, Pulse 85, Resp 22, Tempo 96.0 Laboratory 09/15 Troponin 0.914 Hospitalist PN p1 09/15 NSTEMI suspect this is due to demand Ischemia Cardio PN p4 09/21 NSTEMI type 2 CA RISK FACTORS Hospitalist PN p2 09/15 63 year-old Hospitalist PN p2 09/15 Acute on chronic respiratory failure Hospitalist PN p2 09/15 Morbid obesity Hospitalist PN p2 09/15 CAD Hospitalist PN p3 09/15 HTN Hospitalist PN p3 09/15 DM type 2 Hospitalist PN p3 09/15 Acute on chronic CHF Cardiology Pn p4 09/21 NSVT Cardiology Pn p4 09/21 PAT Cardiology Pn p4 09/21 Ischemic CM TREATMENTS Respiratory Panel 09/15 2L oxygen MAR 09/15 IV Lasix 40 mg JUL 24 Lasix Oral 80 mg oral Mar 09/17 Lipitor 40 mg MAR 09/16 Aspirin 81 mg oral Mar 4/27 IV Dobutamine 200mg/250MI Echocardiogram Collected 09/17 (This form is maintained as a part of the permanent medical record) 2014 [employer]. All Rights Reserved [email or web address]
--- NOTE | 2019-10-02 07:43 | PQF ---
GIBSON MEADOWS TONI MD [id number] CLINICAL DOCUMENTATION CLARIFICATION FORM: POST DISCHARGE Addendum to original discharge summary date: ____ Late entry note date: __ DATE:10/02/2019 ATTN: Artis Allen Please exercise your independent, professional judgment in responding to the clarification form. Clinical indicators are provided on the bottom of this form for your review Please check appropriate box(s): [ ] Empirically treating Gram Negative Pneumonia [ ] Empirically treating Anaerobic Pneumonia [ ] Pneumonia secondary to (specify organism / underlying disease) [ X ] Simple Pneumonia (community acquired) [ ] Pneumonia of unknown etiology [ ] Other diagnosis [ ] Unable to determine For continuity of documentation, please document condition throughout progress notes and discharge summary. Thank You. CLINICAL INDICATORS - SIGNS / SYMPTOMS / LABS Vital signs 09/15 BP 112/85, Pulse 85, Resp 22, Tempo 96.0 Hospitalist PN p1 09/15 seen today foir follow-up of pneumonia. He says he is feeling a little better this morning Hospitalist PN p2 09/15 +rales at both bases Hospitalist PN p3 09/15 Acute on Chronic respiratory failure due to community acquired pneumonia Cardiology PN p2 09/15 Lungs:decreased breath sounds RISK FACTORS Hospitalist PN p2 09/15 63 year-old Hospitalist PN p2 09/15 Acute on chronic respiratory failure Hospitalist PN p2 09/15 Morbid obesity Hospitalist PN p2 09/15 CAD Hospitalist PN p3 09/15 HTN Hospitalist PN p3 09/15 DM type 2 Hospitalist PN p3 09/15 Acute on chronic CHF TREATMENTS: JUL 24 IV Vancomycin 1gm MAR 09/15 IV Levaquin 750mg Respiratory Panel 09/15 2L oxygen (This form is maintained as a part of the permanent medical record) 2014 [email or web address] All Rights Reserved [email or web address]
--- NOTE | 2019-10-02 20:04 | DIS ---
DATE OF ADMISSION: 09/15/2019 DATE OF DISCHARGE: 10/01/2019 DISCHARGE DISPOSITION AND FOLLOWUP: The patient was discharged home with niece. The patient was seen and examined on the date of discharge. Denies any new complaints. INPATIENT CONSULTS: Cardiology. CLINICAL COURSE: The patient is a 63-year-old male, who has past medical history significant of CHF. He stated for the past month he had a cough and shortness of breath, also had subjective fever. He did say at one time that his breathing was worse when he would lay back and he would wake up short of breath throughout the night. In the ER, he did have an elevated white blood count, and his chest x- ray did show bilateral infiltrates. He was admitted to the telemetry unit, where they did a COVID screening on him which resulted with negative test result. Upon admission, they began to diurese him with IV Lasix, and also continued his carvedilol 3.125 mg twice a day. He was also placed on a fluid restriction at that time. Dobutamine drip was needed to assist in diuresing the patient and was discontinued on 09/20. At this time, the patient continued to be diuresed using IV Lasix. Zaroxolyn was started prior to discharge per Cardiology. Overall, the patient lost approximately 46 pounds after diuresis was completed. He was advised to be compliant with his followup and to obtain a PCP. FINAL DIAGNOSES: 1. Acute on chronic systolic heart failure. 2. Acute on chronic respiratory failure. 3. Pneumonia, community acquired. 4. Morbid obesity with BMI of 50 to 59.9. 5. Coronary artery disease. 6. Diabetes type 2, controlled. 7. Hypertension. DISCHARGE MEDICATIONS: 1. Aspirin 81 mg p.o. daily. 2. Atorvastatin 40 mg p.o. h.s. 3. Carvedilol 3.125 mg p.o. t.i.d. 4. Furosemide 80 mg p.o. b.i.d. 5. Glipizide 5 mg p.o. b.i.d. 6. Lisinopril 2.5 mg p.o. b.i.d. 7. Metformin 850 mg p.o. b.i.d. 8. Zaroxolyn 2.5 mg p.o. to be taken on Mondays and only. 9. Protonix 40 mg p.o. daily. 10. Aldactone 25 mg p.o. daily. DISCHARGE INSTRUCTIONS: The patient was extensively counseled to watch his fluid intake and to be compliant with followups. The patient has a history of being seen in the hospital and not following up with Cardiology or a primary care physician. Discharge medication instructions given to patient. He was also educated over his fluid restriction. TIME SPENT: Total time coordinating the discharge of this patient was 35 minutes. Job ID: [id number] MTDD
== END 2019-10-01 17:25 | disposition home health service (06) | DRG 280 ==
LOC: 2SW 20:56
PROVIDERS: ADMIT Internal Medicine; ATTEND Internal Medicine
PROC: 8E0ZXY6 Isolation (ICD-10-PCS; 2019-09-15)
PROC: 3E033XZ Introduction of Vasopressor into Peripheral Vein, Percutaneous Approach (ICD-10-PCS; principal; 2019-09-17)
DX: I11.0 Hypertensive heart disease with heart failure (principal); J18.9 Pneumonia, unspecified organism; I21.A1 Myocardial infarction type 2; J96.20 Acute and chronic respiratory failure, unspecified whether with hypoxia or hypercapnia; Z68.43 Body mass index [BMI] 50.0-59.9, adult; I47.2 Ventricular tachycardia; I47.1 Supraventricular tachycardia; Z20.828 Contact with and (suspected) exposure to other viral communicable diseases; I50.43 Acute on chronic combined systolic (congestive) and diastolic (congestive) heart failure; E66.01 Morbid (severe) obesity due to excess calories; I25.10 Atherosclerotic heart disease of native coronary artery without angina pectoris; E11.9 Type 2 diabetes mellitus without complications; I25.5 Ischemic cardiomyopathy; R33.9 Retention of urine, unspecified; I89.9 Noninfective disorder of lymphatic vessels and lymph nodes, unspecified; E78.5 Hyperlipidemia, unspecified; D64.9 Anemia, unspecified; K80.20 Calculus of gallbladder without cholecystitis without obstruction; K21.9 Gastro-esophageal reflux disease without esophagitis; G40.909 Epilepsy, unspecified, not intractable, without status epilepticus; Z91.14 Patient's other noncompliance with medication regimen; Z79.84 Long term (current) use of oral hypoglycemic drugs; Z95.1 Presence of aortocoronary bypass graft; Z79.899 Other long term (current) drug therapy
CPT/HCPCS: 36415; 36416; 80048; 80076; 80202; 83615; 83735; 84484; 85025; 85652; 87635; 93306; 93798; J1250; J1650; J1940; J1956; J3370; J7050; Q0162; S0028; U0003

== ENCOUNTER 2019-12-08 15:14 | Inpatient (IN) | payer MEDICARE ==
[2019-12-08] MEDS ORDERED: Calcium Carbonate 500 MG ChewTAB PO PRN (17:22)
[2019-12-08] MEDS ORDERED: HumaLOG 300 UNITS/3 ML VIAL SC PRN (17:22)
[2019-12-08] MEDS ORDERED: Acetaminophen 325 MG TAB PO PRN (17:22)
[2019-12-08] MEDS ORDERED: Bisacodyl 10 MG SUPP PR PRN (17:22)
[2019-12-08] MEDS ORDERED: Dextrose 50% Abboject 50 ML SYRINGE SLOW IVP PRN (17:22)
[2019-12-08] MEDS ORDERED: Dextrose 5% in Water 1,000 ML IV PRN (17:22)
[2019-12-08] MEDS ORDERED: Ondansetron PF 4 MG/2 ML Vial IVP PRN (17:22)
[2019-12-08] MEDS ORDERED: Senokot S 8.6-50 MG TAB PO PRN (17:22)
[2019-12-08] MEDS ORDERED: Guaifenesin DM 100-10/5 ML UDCUP PO PRN (17:22)
[2019-12-08 18:03] LABS: #Eosinphils 0.1 thou/uL (0.0-0.7); #Lymphocytes 1.4 thou/uL (1.20-3.40); #Monocytes 1.2 thou/uL (0.11-0.59); #Neutrophils 10.3 thou/uL (1.40-6.50); %Basophils 0.2 % (0.0-1.0); %Eosinophils 0.7 % (0.0-10.0); %Lymphocytes 10.6 % (21.0-51.0); %Monocytes 8.8 % (0.0-10.0); %Neutrophils 79.7 % (42.0-75.0); Mean Corpuscular HGB CONC 32.2 g/dL (32.0-36.0); Mean Corpuscular Hemoglobin 28.7 pg (27.0-31.0); Mean Corpuscular Volume 89.3 fL (78.0-98.0); Mean Platelet Volume 7.9 fL (7.4-10.4); Platelet Count 256 thou/uL (130-400); RBC Distribution Width 18.2 % (11.5-14.5); Red Blood Cell (RBC) Count 3.83 mill/uL (4.70-6.10)
[2019-12-08 18:09] LABS: INR-International Normal Ratio 1.4; Prothrombin Time 17.4 sec (12.0-14.7)
--- NOTE | 2019-12-08 18:09 | HP ---
REASON FOR ADMISSION: CHF exacerbation. HISTORY OF PRESENT ILLNESS: The patient gives history of having lower extremity pain from last 3 weeks. He has had increasing swelling of his lower extremity. He normally ambulates by himself. He has also developed a bit of shortness of breath from last 3 days now. The patient has known history of CHF and states he is compliant with his medications and diet. He is also on a fluid restriction per patient. No complaints of cough or expectoration. No complaints of fever. He lives with his niece and she is healthy as far as he knows with no covid symptoms. The patient was recently discharged from the hospital on 10/01/2019 for similar hospitalization. PAST MEDICAL AND SURGICAL HISTORY: History of CHF with severely depressed ejection fraction of around 15-20 percent, diabetes mellitus type 2, hypertension, dyslipidemia, coronary artery disease, anxiety disorder, schizoaffective disorder, prior cardiac cath. PERSONAL HISTORY: Drinks 2-3 beers a day. Does not abuse drugs. Does not smoke. He lives with his niece. FAMILY HISTORY: Mother at the age of 49 from unknown causes. Father of natural causes at the age of 90. CODE STATUS: Full. Power of mergers and acquisitions attorney is his niece CURRENT MEDICATION: Please note the patient does not recall any of his medication and states that his niece gives him all the medications. Based on recent discharge, the patient was on: 1. Lasix 80 mg daily. 2. Glipizide extended release 5 mg twice daily. 3. Metformin 850 mg twice daily. 4. Carvedilol 3.125 mg 3 times daily. 5. Metolazone 5 mg daily. 6. Spironolactone 25 mg daily. 7. Lisinopril 2.5 mg twice daily. 8. Protonix 40 mg daily. ALLERGIES: NO KNOWN DRUG ALLERGIES. REVIEW OF SYSTEMS: CONSTITUTIONAL: Negative for weight loss or gain, ability to conduct usual activities. SKIN: Negative for rash, itching. EYES: Negative for double vision, pain. ENT/MOUTH: Negative for nose bleeding, neck stiffness, pain, tenderness. CARDIOVASCULAR: Negative for palpitations, dyspnea on exertion, orthopnea. RESPIRATORY: Negative for shortness of breath, wheezing, cough, hemoptysis, fever or night sweats. GASTROINTESTINAL: Negative for poor appetite, abdominal pain, heartburn, nausea , vomiting, constipation, or diarrhea. GENITOURINARY: Negative for urgency, frequency, dysuria, nocturia. MUSCULOSKELETAL: Negative for pain, swelling. NEUROLOGIC/PSYCHIATRIC: Negative for anxiety, depression. ALLERGY/IMMUNOLOGIC: Negative for skin rash, bleeding tendency. PHYSICAL EXAMINATION: GENERAL: The patient is a 64-year-old male who is currently not in any acute distress. VITAL SIGNS: Blood pressure 126/74, pulse 74 per minute, respiratory rate 20 per minute, temperature 98.3 degrees Fahrenheit, saturating 98% on 2.5 L nasal cannula. NECK: Supple. There is mild elevation in JVD. HEENT: Eyes; extraocular muscles intact. Pupils reacting to light. Oral cavity, mucous membranes are dry. No exudates or congestion. CARDIOVASCULAR: S1, S2 heard. Regular rhythm. RESPIRATORY: Air entry 1+ bilateral. Scattered rales plus bilateral. ABDOMEN: Soft. Bowel sounds heard. No tenderness, rigidity, or guarding. EXTREMITIES: There is massive edema in both lower extremities. He has tenderness to touch in both lower extremities. PSYCHIATRIC: No obvious hallucinations or delusions at present. CENTRAL NERVOUS SYSTEM: No gross focal motor deficits noted. The patient moves all extremities. VASCULAR SYSTEM: Peripheral pulses 1+ bilateral. No ischemic ulcerations or gangrene. LABORATORY DATA: Please note, the patient went to [facility] [place] [facility] in [place] and all his initial workup were done there. He had an EKG done there, which shows normal sinus rhythm at 81 beats per minute. There is poor R-wave progression. There is nonspecific ST-T wave changes seen. He has had a COVID-19 antigen test done which was negative. INR 1.4, PT is 16.3. Again, these are point of care labs. Sodium 134, potassium 4.2, serum bicarb 24, serum glucose 180, calcium 8.7, BUN 42, creatinine 1.1, alkaline phosphatase 219, ALT 49, AST 29, total bilirubin 1.4, albumin 3.1. White count of 13, hemoglobin of 11, hematocrit 35, MCV 83, platelet count is 292. CLINICAL IMPRESSION AND PLAN: The patient will be admitted to telemetry for CHF exacerbation with severe edema of lower extremities and tenderness to touch and palpation. He will be placed on IV Lasix 40 mg at 6 a.m. and 2:00 p.m. Along with metolazone. We will try to place him on a larger MARIBELL hose if one is available for his size and weight. We will continue his Coreg 3 times daily along with lisinopril, both low doses. For diabetes, he will be on glipizide and metformin as before. We will also consult dietitian in view of recurrent hospitalization for congestive heart failure exacerbation. The patient was counseled with regards to alcohol use and fluid restriction. We will continue to closely monitor him on telemetry. His overall prognosis is guarded with very poor ejection fraction of around 15%. He will also have early mobilization with Physial Therapy evaluation as well. Job ID: [id number] [facility]
[2019-12-08 18:10] LABS: PTT 47.6 sec (22.9-36.1)
[2019-12-08 18:21] LABS: ALT (SGPT) 46 U/L (8-55); AST (SGOT) 20 U/L (5-34); Alkaline Phosphatase 245 U/L (40-110); Anion Gap 12 mmol/L (10-20); BUN (Urea Nitrogen) 42 mg/dL (8.4-25.7); Bilirubin, Total 1.4 mg/dL (0.2-1.2); Calc. Creatinine Clearance 144 mL/min (70-130); Calcium 8.6 mg/dL (7.8-10.44); Carbon Dioxide 26 mmol/L (23-31); Chloride 102 mmol/L (98-107); Estimated GFR-MDRD 73; Globulin 4.6 g/dL (2.4-3.5); Glucose 140 mg/dL (80-115); Potassium 4.3 mmol/L (3.5-5.1); Protein, Total 7.6 g/dL (5.8-8.1); Sodium 136 mmol/L (136-145)
[2019-12-08] MEDS: Famotidine 20 MG TAB PO SCH (20:46)
[2019-12-08] MEDS: metFORMIN 850 MG TAB PO SCH (20:46)
[2019-12-08] MEDS: Lisinopril 2.5 MG TAB PO SCH (20:47)
[2019-12-08] MEDS: Carvedilol 3.125 MG TAB PO SCH (20:47)
--- NOTE | 2019-12-08 21:35 | RAD ---
PORTABLE CHEST: 12/08/19 HISTORY: Shortness of breath. CHF. COMPARISON: 12/29/18. There is cardiomegaly with vascular congestion. Interstitial congestion and edema. No confluent alveo lar infiltrate or edema. Small effusions may be present. Postop sternotomy change. IMPRESSION: Cardiomegaly with vascular and interstitial congestion. POS: AGW
[2019-12-09 04:56] LABS: #Eosinphils 0.1 thou/uL (0.0-0.7); #Lymphocytes 1.1 thou/uL (1.20-3.40); #Monocytes 1.2 thou/uL (0.11-0.59); #Neutrophils 9.5 thou/uL (1.40-6.50); %Basophils 0.1 % (0.0-1.0); %Eosinophils 0.9 % (0.0-10.0); %Lymphocytes 9.5 % (21.0-51.0); %Monocytes 9.7 % (0.0-10.0); %Neutrophils 79.7 % (42.0-75.0); Hemoglobin 9.9 g/dL (14.0-18.0); Mean Corpuscular HGB CONC 30.8 g/dL (32.0-36.0); Mean Corpuscular Hemoglobin 27.4 pg (27.0-31.0); Mean Corpuscular Volume 89.2 fL (78.0-98.0); Mean Platelet Volume 8.3 fL (7.4-10.4); Platelet Count 245 thou/uL (130-400); RBC Distribution Width 18.3 % (11.5-14.5)
[2019-12-09 05:13] LABS: Anion Gap 11 mmol/L (10-20); BUN (Urea Nitrogen) 37 mg/dL (8.4-25.7); Calc. Creatinine Clearance 156 mL/min (70-130); Calcium 8.2 mg/dL (7.8-10.44); Carbon Dioxide 23 mmol/L (23-31); Chloride 103 mmol/L (98-107); Estimated GFR-MDRD 80; Glucose 138 mg/dL (80-115); Potassium 4.2 mmol/L (3.5-5.1); Sodium 133 mmol/L (136-145)
[2019-12-09] MEDS: Metolazone 2.5 MG TAB PO SCH (05:14)
[2019-12-09] MEDS: Furosemide 40 MG/4 ML VIAL SLOW IVP SCH ×2 (05:14→13:36)
[2019-12-09] MEDS: HYDROcodone/Acetaminophen 5/325 mg Tablet PO PRN ×3 (09:50→21:00)
[2019-12-09] MEDS: Famotidine 20 MG TAB PO SCH ×2 (09:51→20:58)
[2019-12-09] MEDS: metFORMIN 850 MG TAB PO SCH ×2 (09:52→20:58)
[2019-12-09] MEDS: Spironolactone 25 MG TAB PO SCH (09:52)
[2019-12-09] MEDS: Aspirin Chewable 81 MG TAB PO SCH (09:52)
[2019-12-09] MEDS: Lisinopril 2.5 MG TAB PO SCH ×2 (09:53→20:58)
[2019-12-09] MEDS: Enoxaparin Sodium 40 MG/0.4 ML SYRINGE SC SCH (09:53)
[2019-12-09] MEDS: Carvedilol 3.125 MG TAB PO SCH ×2 (09:56→14:42)
[2019-12-09] MEDS ORDERED: Magnesium 2 GM/50 ML 2 GM in Premix Bag 1 BAG IVPB SCH (10:00)
--- NOTE | 2019-12-09 12:03 | PDOC.HOSPP ---
- Subjective Encounter Date: 12/09/19 Encounter Time: 09:20 Subjective: pt c/o mostly of his leg pain. dry tight gauze around the legs. prior hospitalization for HF reviewed. - Objective Vital Signs & Weight: Vital Signs (12 hours) Temp Pulse Resp BP Pulse Ox 12/09/19 11:21 98.9 F 70 20 123/58 L 96 12/09/19 10:45 100 12/09/19 09:53 71 12/09/19 07:48 98.8 F 71 18 133/60 100 12/09/19 03:38 98.3 F 81 20 116/58 L 94 L Weight Weight 309 lb 3 oz I&O: 12/08/19 12/09/19 12/10/19 06:59 06:59 06:59 Intake Total 716 Output Total 1000 Balance -284 Result Diagrams: 12/09/19 04:23 12/09/19 04:23 Hospitalist ROS - Medication Medications: Active Medications Generic Name Dose Route Start Last Admin Trade Name Freq PRN Reason Stop Dose Admin Hydrocodone Bitart/Acetaminophen 1 tab 12/08/19 17:22 12/09/19 09:50 L[place]y 5/325 PO 1 tab Q4H PRN Administration Moderate Pain (4-6) Aspirin 81 mg 12/09/19 09:00 12/09/19 09:52 Aspirin Chewable PO 81 mg DAILY JASON Administration Carvedilol 3.125 mg 12/08/19 21:00 12/09/19 09:56 Coreg PO 3.125 mg TID JASON Administration Enoxaparin Sodium 40 mg 12/09/19 09:00 12/09/19 09:53 Lovenox SC 40 mg 0900 JASON Administration Famotidine 20 mg 12/08/19 21:00 12/09/19 09:51 Pepcid PO 20 mg BID JASON Administration Furosemide 40 mg 12/09/19 06:00 12/09/19 05:14 Lasix SLOW IVP 40 mg 0600,1400 JASON Administration Glipizide 5 mg 12/08/19 21:00 12/09/19 09:52 Glucotrol Xl PO 5 mg BID JASON Administration Lisinopril 2.5 mg 12/08/19 21:00 12/09/19 09:53 Zestril PO 2.5 mg BID JASON Administration Metformin HCl 850 mg 12/08/19 21:00 12/09/19 09:52 Glucophage PO 850 mg BID AJSON Administration Metolazone 5 mg 12/09/19 06:00 12/09/19 05:14 Zaroxolyn PO 5 mg 0600 JASON Administration Pantoprazole Sodium 40 mg 12/09/19 09:00 12/09/19 09:51 Protonix PO 40 mg DAILY JASON Administration Spironolactone 25 mg 12/09/19 08:00 12/09/19 09:52 Aldactone PO 25 mg QAM-WM JASON Administration - Exam General Appearance: NAD, awake alert ENT: normocephalic atraumatic Neck: supple Heart: RRR Respiratory: CTAB, normal chest expansion Gastrointestinal: soft, normal bowel sounds Extremities - other findings: tight dry gauze --not able to assess the legs in its entirety Neurological: no focal deficits Hosp A/P - Plan Acute on chr sys CHF exacerbation severe ischemic cardiomyopathy CArdio renal syndrome -strict i/output-talk to Dr. centeno, who wuld likely see him todya - last echo in 08/2019 - EF of 20% and cardiology note mentioned that he refused AICD evaluation. -being diuresed, coreg, spironolactone NSVT this am Hypomagnesemia -replaced the lytes. Mild Hyponatremia -likely chornic b/l LE cellulitis Luekocytosis, trending down -empiric CTX DM2 -glipizide ad metofrmin - caution w.. cr level Debilitation - PT consulted full code.
[2019-12-09] MEDS: cefTRIAXone\\ROCEPHIN 1 GM in Sodium Chloride 0.9% 100 ML IVPB SCH (13:35)
[2019-12-09] MEDS: HumaLOG 300 UNITS/3 ML VIAL SC PRN (18:07)
[2019-12-09] MEDS: Magnesium Oxide 400 MG TAB PO SCH (20:58)
[2019-12-09] MEDS: Amiodarone 200 MG TAB PO SCH (20:58)
[2019-12-09] MEDS: Carvedilol 6.25 MG TAB PO SCH (20:58)
[2019-12-09] MEDS ORDERED: Furosemide 100 MG/10 ML VIAL IVPB SCH (21:00)
--- NOTE | 2019-12-10 00:25 | PDOC.EVN ---
Event Note - Event Note Event Note: Tonight, patient had 35 beats of VTACH with HR in 130-160. In no distress. Dr. Cowan has been consulted and saw patient yesterday.
[2019-12-10] MEDS: Metolazone 2.5 MG TAB PO SCH (05:15)
[2019-12-10 05:47] LABS: Anion Gap 14 mmol/L (10-20); BUN (Urea Nitrogen) 41 mg/dL (8.4-25.7); Calc. Creatinine Clearance 111 mL/min (70-130); Calcium 8.6 mg/dL (7.8-10.44); Carbon Dioxide 25 mmol/L (23-31); Chloride 100 mmol/L (98-107); Estimated GFR-MDRD 54; Glucose 123 mg/dL (80-115); Magnesium 1.7 mg/dL (1.6-2.6); Potassium 4.6 mmol/L (3.5-5.1); Sodium 134 mmol/L (136-145)
[2019-12-10] MEDS ORDERED: Furosemide 100 MG/10 ML VIAL IVPB SCH ×2 (06:00→09:45)
[2019-12-10 06:18] LABS: Band 2 % (5-11); Eosinophils 2 % (0-10); Hemoglobin 10.2 g/dL (14.0-18.0); Lymphocytes 6 % (21-51); MDiff Complete? YES; Mean Corpuscular HGB CONC 31.4 g/dL (32.0-36.0); Mean Corpuscular Hemoglobin 28.3 pg (27.0-31.0); Mean Corpuscular Volume 90.2 fL (78.0-98.0); Mean Platelet Volume 8.3 fL (7.4-10.4); Monocytes 12 % (0-10); Neutrophil 77 % (42-75); Platelet Count 227 thou/uL (130-400); Platelet Morphology Comment Appears Adequate; RBC Distribution Width 18.3 % (11.5-14.5); Reactive Lymphocytes 1 % (0-10); White Blood Cell (WBC) Count 10.1 thou/uL (4.8-10.8)
--- NOTE | 2019-12-10 07:17 | CON ---
DATE OF CONSULTATION: 12/09/2019 REASON FOR CONSULT: Management of [id number] heart failure with reduced ejection fraction. HISTORY OF PRESENT ILLNESS: Mr. Thomas Fu, 64-year-old gentleman with ischemic cardiomyopathy and heart failure with reduced ejection fraction with EF of 15%, was admitted for bilateral leg pain and increasing edema. Mr. Fu' cardiac problems started in 2003. Apparently, he suffered a sudden cardiac . They found him to have a myocardial infarction and he was rushed to the OR for bypass surgery. I do not have the bypass information. Apparently, it was done in [place]. After that, he was disabled. I found from multiple notes in the past that the patient has been very noncompliant. He eats what he wants, does not care to keep track of his fluid levels and he has multiple times refused AICD. However, he tells me a different story. He says he listens to people and he watches fluid level, he does not drink too much. He said as far as about 6 weeks ago he was able to walk short distances with a cane. Then about 3 weeks ago, he had increasing bilateral lower extremity edema and then that became very painful. It progressed to the point that he cannot walk anymore and the pain occurs at rest. It is the bilateral lower leg pain that caused him to be admitted to the hospital. At admission, he did have elevated white cell count. He was diagnosed with both cellulitis and rybjk-po-mmzykfy heart failure exacerbation. He was given Lasix 40 mg IV twice a day along with home dose of metolazone 5 mg daily. He said he still has severe bilateral leg pain. He cannot stand up and walk. PAST MEDICAL HISTORY: 1. Coronary artery disease with bypass done in 2003. 2. Heart failure with reduced ejection fraction. The echocardiogram done on September 18 2019, showed LVIDd to be 8.4 cm, left ventricular ejection fraction of 15%, dilated right ventricle and also severely depressed right ventricular function. This is read by me today. He also has severe diastolic dysfunction. 3. High blood pressure. 4. Type 2 diabetes. 5. Schizoaffective disorder. 6. Hyperlipidemia. SOCIAL HISTORY: 1. He has been a smoker, but he stopped smoking in 2014. 2. He says he still drinks alcohol, maybe a beer a day. He says he got to have a little taste. 3. He denies any illicit drug use. 4. He is not . He says he always been single. FAMILY HISTORY: His father at age 80 apparently some type of old age related issues. His mother at age 45, apparently a sudden cardiac . He also has a brother who in the 40s of sudden cardiac . CURRENT MEDICATIONS: Consist of 1. Aspirin 81 mg daily. 2. Carvedilol 3.125 mg three times a day. 3. Ceftriaxone at 1 g daily. 4. Enoxaparin 40 mg subcutaneous daily. 5. Lasix 40 mg IV twice a day. 6. Glipizide 5 mg b.i.d. 7. Lisinopril 2.5 mg b.i.d. 8. Metolazone at 5 mg daily. 9. Spironolactone 25 mg daily. REVIEW OF SYSTEMS: GENERAL: There is no fever, chills, productive cough. HEENT: There is no change in vision, hearing, or swallowing. PULMONARY: He is a bit more short of breath. CARDIAC: He denies palpitations or syncope; however, he has 2 pillow orthopnea but no PND and increasing lower extremity edema and abdominal edema. MUSCULOSKELETAL: Please see HPI. INTEGUMENT: There is no complaint of new skin breakdown. NEUROLOGIC: There are no new focal deficits or weaknesses. He does complain of bilateral lower leg pain that is related to his cellulitis and increasing lower extremity edema. PHYSICAL EXAMINATION: The telemetry was reviewed. It is in sinus rhythm. However, about 5:30 this morning he had a 12-beat run of ventricular tachycardia, but later about 9:30 am , there was a 4-beat run of ventricular tachycardia. VITAL SIGNS: His latest vitals consist of heart rate 70, blood pressure 123/ 58. GENERAL: He is alert and conversational, but short of breath. While on oxygen 2L, he only can finish short sentences. Even though he talks, he does not have a good insight. He does not understand nor wants to understand his situation. HEENT: EOMI. Oropharynx has really poor dentition. Oral mucosa is moist. NECK: JVP is elevated to at least 14 cm. It is a little bit higher than the earlobe. PULMONARY: There is good air movement; however, there are bilateral crackles. CARDIAC: Regular rate and rhythm. Normal S1, S2. There is 2/6 holosystolic murmur at the apex. There seemed to be at least 1/6 diastolic murmur at the right sternal border. There is also palpable small right ventricular heave. ABDOMEN: Distended, soft, nontender. Positive bowel sounds. EXTREMITIES: He has very large bilateral lower extremity. The pitting edema does indent at least 1 cm up to his knee and goes to his thigh, so he has pitting edema up to the upper thigh. LABORATORY VALUES: White cell count 12,000, hemoglobin 9.9, and platelets of 245. Chemistry values: Sodium decreased from 136 down to 133, BUN has decreased from 42 down to 37. His creatinine actually improved a bit from 1.03 down to 0.95. He has low magnesium of 1.5. His BNP is 1694. His TSH is 1.52. His September 18, 2019 echocardiogram was reviewed by me. 1. Left ventricular inner diameter at diastole is 8.4 cm. 2. LV ejection fraction about 15%. 3. Mild mitral regurgitation. 4. Mbhc-xp-jbfclios aortic regurgitation. 5. There is severe diastolic dysfunction, which is stage III with restrictive filling pattern. 6. Severe dilated right ventricle. 7. Severely depressed right ventricular function. 8. Elevated PA pressure at least 50 mmHg that consists of TR pressure gradient of 40 plus at least 10. ASSESSMENT: This 64-year-old male has kbhwt-mp-uudtnbq heart failure with reduced ejection fraction. It has both systolic and diastolic dysfunctions. His left ventricular ejection fraction only 15%. It is an ischemic cardiomyopathy. He also now has paroxysmal ventricular tachycardia. He is severely volume overloaded. After a long discussion, he demonstrated he does not want advanced care. He has refused automatic implantable cardioverter defibrillator. He has very little insight into his situation. However, he still wants cardiopulmonary resuscitation and be full code. He said that whatever wants to be, it will be; however, he does not want advanced heart failure therapy. Ideally, at his age of 64, he is a good candidate for advanced heart failure therapy such as left ventricular assist device or heart transplant. With a biventricular failure he is having, his only option will be heart transplant. However, due to his poor insight, long history of noncompliance and very little understanding, he will not make a good candidate. Consequently, the best we can do is optimize his medical management as much as possible and eventually he will need to go on hospice. RECOMMENDATIONS: Please see the following for my recommendations. 1. Stop lisinopril. 2. Replace with valsartan 40 mg p.o. b.i.d. as a bridge toward Entresto which will be much more effective. 3. Start amiodarone 400 mg p.o. b.i.d. for 10 g low and then after that we will go on to amiodarone 200 mg daily. This is for his ventricular tachycardia. 4. Please keep potassium at 4 and magnesium at 2. This will decrease the chance of ventricular tachycardia. 5. Please check TSH with morning labs. 6. Make sure that his morning labs include BNP and CBC. 7. Change Lasix to 60 mg IV t.i.d. He will need much more sustained diuresis. 8. Change carvedilol to 6.25 mg p.o. q.12 hours. 9. It is within patients right not to have AICD. At this point we will maximize his medical therapy as much as possible. It has been a pleasure taking care of Mr. Fu. If you have any questions, please give me a call. Job ID: [id number] [facility]
[2019-12-10] MEDS: Valsartan 80 MG TAB PO SCH ×2 (08:19→22:15)
[2019-12-10] MEDS: Famotidine 20 MG TAB PO SCH (08:25)
[2019-12-10] MEDS: Enoxaparin Sodium 40 MG/0.4 ML SYRINGE SC SCH (08:25)
[2019-12-10] MEDS: Amiodarone 200 MG TAB PO SCH ×2 (08:26→22:12)
[2019-12-10] MEDS: Magnesium Oxide 400 MG TAB PO SCH ×2 (08:26→22:13)
[2019-12-10] MEDS: Carvedilol 6.25 MG TAB PO SCH ×2 (08:26→22:13)
[2019-12-10] MEDS: Spironolactone 25 MG TAB PO SCH (08:27)
[2019-12-10] MEDS: Aspirin Chewable 81 MG TAB PO SCH (08:27)
[2019-12-10] MEDS: metFORMIN 850 MG TAB PO SCH ×2 (08:27→22:13)
[2019-12-10] MEDS ORDERED: Magnesium 2 GM/50 ML 2 GM in Premix Bag 1 BAG IVPB SCH (09:00)
--- NOTE | 2019-12-10 10:20 | PRG ---
DATE OF SERVICE: 12/10/2019 SUBJECTIVE: Mr. Fu said he had a good night. He was able to go to sleep and sleep well without any problem. He said he woke up this morning, breathing easier. His leg pain is still there, but a little bit less so. He did have multiple bouts of ventricular tachycardia especially last night, the longest bout of 38 beats. I talked to him for a while about his heart condition and the need for AICD. He again has steadily refused AICD. 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 Then more discussion occurred about on CPR and code status. He said he does want CPR. He does want intubation. REVIEW OF SYSTEMS: GENERAL: There is no fever, chills, productive cough. HEENT: There is no change in vision, hearing, or swallowing. PULMONARY: Please see HPI. CARDIAC: Please see HPI. GI: There is no nausea, vomiting, diarrhea. : He says that he is urinating well. MUSCULOSKELETAL: He has bilateral leg pain, though little bit less than yesterday. INTEGUMENT: There is no new skin breakdown. NEUROLOGIC: There are no focal deficits or weaknesses. PSYCHIATRIC: He seems to be his normal state. MEDICATIONS: The medications that have cardiac impact includes 1. Amiodarone 400 mg b.i.d., this for his ventricular tachycardia. 2. Aspirin 81 mg daily. 3. Carvedilol 6.25 mg q.12 hours. 4. He was supposed to be on valsartan 40 mg twice a day. 5. For some reason, lisinopril 2.5 mg twice daily is still on there. 6. Spironolactone 25 mg day daily. 7. Metolazone 5 mg p.o. at Bedtime. 8. Furosemide 60 mg IV t.i.d. PHYSICAL EXAMINATION: His telemetry was reviewed. He has multiple runs of ventricular tachycardia with longest 38 from overnight between midnight and 1 o'clock in the morning. VITAL SIGNS: Latest vitals on exam are, when I was in room, heart rate about 60 , blood pressure in the room at that time was 98/54. GENERAL: He is alert, conversational, sitting in bed. He does appear short of breath. HEENT: EOMI. Oropharynx shows relatively poor dentition, but has moist mucosa. NECK: His JVP is elevated about 13 cm. PULMONARY: He has good air movement bilaterally. Decreased breath sounds at bilateral bases. CARDIAC: Regular rate and rhythm with 2/6 holosystolic murmur at the apex. ABDOMEN: Soft, nontender, but distended. EXTREMITIES: Lower during extremity has a 3+ pitting edema from feet on towards the knees. However, it is wrapped and is painful to touch. LABORATORY DATA: White cell count decreased down to 10, hemoglobin is at 10.2, platelet count is 227. His chemistry shows sodium has increased slightly from 133 to 134, potassium 4.6, BUN at 41, creatinine 1.33. His BNP has decreased from 1694 down to 857. 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 He also has lower extremity cellulitis. He also has paroxysmal ventricular tachycardia. He has very little insight to his situation. Again, he steadily refused AICD consideration. At this point, the best we can do is give him amiodarone and ensure that he has sufficient carvedilol. Hopefully, the combination of amiodarone and carvedilol will provide sufficient suppression. He is still very much volume overloaded. However, due to his rising BUN and creatinine, we will need to slow down his diuresis. I want to avoid inotrope on this end-stage patient because he is not a good candidate for long-term mlrinone infusion due to his noncompliance. However, if we cannot get the fluid off him, then we might need to do a short run of milrinone inpatient. Please see the following for my recommendations. RECOMMENDATIONS: 1. Ensure lisinopril is discontinued. 2. Hold valsartan if systolic blood pressure falls below 92. 3. Change Lasix to 80 mg IV b.i.d. 4. Stop metolazone. 5. Please consult Palliative Care for end of life care since this patient is not appropriate for advanced heart failure therapy and he does not want anything else done. It has been a pleasure taking care of Mr. Thomas Fu. If you have any questions, please give me a call. Job ID: [id number] [facility]
--- NOTE | 2019-12-10 11:16 | PDOC.HOSPP ---
- Subjective Encounter Date: 12/10/19 Encounter Time: 07:45 Subjective: Patient seen and examined bedside today, this morning patient was not having any complaint, patient has significant lower extremity edema, he is using oxygen - Objective Vital Signs & Weight: Vital Signs (12 hours) Temp Pulse Resp BP BP Pulse Ox 12/10/19 08:00 97 12/10/19 07:48 98.3 F 59 L 18 90/54 L 97 12/10/19 04:39 97.4 F L 60 18 131/56 L 96 12/10/19 00:00 62 Weight Weight 307 lb 1.6 oz I&O: 12/09/19 12/10/19 12/11/19 06:59 06:59 06:59 Intake Total 716 2009 Output Total 999 2199 Balance -284 -190 Result Diagrams: 12/10/19 04:17 12/10/19 04:17 Radiology Reviewed by me: Yes EKG Reviewed by me: Yes Hospitalist ROS - Review of Systems Constitutional: reports: weakness. denies: fever, chills, sweats, malaise, other Eyes: denies: pain, vision change, conjunctivae inflammation, eyelid inflammation, redness, other ENT: denies: ear pain, ear discharge, nose pain, nose discharge, nose congestion , mouth pain, mouth swelling, throat pain, throat swelling, other Respiratory: reports: SOB with excertion. denies: cough, dry, shortness of breath, hemoptysis, pleuritic pain, sputum, wheezing, other Cardiovascular: reports: orthopnea, edema. denies: chest pain, palpitations, paroxysmal noc. dyspnea, light headedness, other Gastrointestinal: denies: nausea, vomiting, abdominal pain, diarrhea, constipation, melena, hematochezia, other Genitourinary: denies: dysuria, frequency, incontinence, hematuria, retention, other Musculoskeletal: denies: neck pain, shoulder pain, arm pain, back pain, hand pain, leg pain, foot pain, other Skin: denies: rash, lesions, adelita, bruising, other - Medication Medications: Active Medications Generic Name Dose Route Start Last Admin Trade Name Freq PRN Reason Stop Dose Admin Hydrocodone Bitart/Acetaminophen 1 tab 12/08/19 17:22 12/09/19 21:00 [place] 5/325 PO 1 tab Q4H PRN Administration Moderate Pain (4-6) Amiodarone HCl 400 mg 12/09/19 21:00 12/10/19 08:26 Cordarone PO 12/21/19 21:01 400 mg BID JASON Administration Aspirin 81 mg 12/09/19 09:00 12/10/19 08:27 Aspirin Chewable PO 81 mg DAILY JASON Administration Carvedilol 6.25 mg 12/09/19 21:00 12/10/19 08:26 Coreg PO 6.25 mg Q12HR JASON Administration Enoxaparin Sodium 40 mg 12/09/19 09:00 12/10/19 08:25 Lovenox SC 40 mg 0900 JASON Administration Furosemide 80 mg 12/10/19 09:45 12/10/19 11:03 Lasix IVPB 12/10/19 12:00 Not Given NOW JASON Glipizide 5 mg 12/08/19 21:00 12/10/19 08:27 Glucotrol Xl PO 5 mg BID JASON Administration Ceftriaxone Sodium 1 gm/ 100 mls @ 200 mls/hr 12/09/19 13:00 12/09/19 13:35 Sodium Chloride IVPB 100 mls 1300 JASON Administration Magnesium Sulfate 2 gm/ Device 50 mls @ 50 mls/hr 12/10/19 09:00 12/10/19 08: 25 IVPB 12/10/19 12:00 50 mls NOW JASON Administration Insulin Human Lispro 0 units 12/08/19 17:22 12/09/19 18:07 Humalog SC 6 unit .MODERATE SLIDING SC PRN Administration Moderate Correctional Scale Magnesium Oxide 800 mg 12/09/19 21:00 12/10/19 08:26 Magnesium Oxide PO 800 mg BID JASON Administration Metformin HCl 850 mg 12/08/19 21:00 12/10/19 08:27 Glucophage PO 850 mg BID JASON Administration Pantoprazole Sodium 40 mg 12/09/19 09:00 12/10/19 08:27 Protonix PO 40 mg DAILY JASON Administration Sodium Chloride 10 ml 12/10/19 09:00 12/10/19 08:27 Flush - Normal Saline IVF 10 ml Q12HR JASON Administration Spironolactone 25 mg 12/09/19 08:00 12/10/19 08:27 Aldactone PO 25 mg QAM-WM JASON Administration Valsartan 40 mg 12/10/19 09:00 12/10/19 08:19 Diovan PO Not Given BID JASON - Exam General Appearance: NAD, awake alert Eye: PERRL, anicteric sclera ENT: normocephalic atraumatic, no oropharyngeal lesions Neck: supple, symmetric, JVD Heart: RRR, no murmur, no gallops Respiratory - other findings: Basal rales Gastrointestinal: soft, non-tender, non-distended, normal bowel sounds Gastrointestinal - other findings: Obesity Extremities: 2+ LE edema Extremities - other findings: Chronic wound noted covered with a dressing Skin: normal turgor, no lesions Neurological: no focal deficits Musculoskeletal: normal tone, normal strength Psychiatric: normal affect, normal behavior Hosp A/P - Plan old records reviewed/req, continue antibiotics, DVT proph w/lovenox Assessment Acute on chronic respiratory failure with hypoxia due to CHF exacerbation Acute on chronic combined systolic and diastolic congestive heart failure Acute kidney injury Hypomagnesemia Hypokalemia Cardiomyopathy Coronary artery disease Cholelithiasis Diabetes type 2 Hypertension Morbid obesity BMI 49 Significant volume overload Seizure disorder Possible cellulitis with a chronic wound over lower extremity Plan Because of acute kidney injury lisinopril has been discontinued Continue Coreg We will try to keep magnesium above 2 and will replace magnesium 2 g today Amiodarone has been started by her heart failure physician Continue Lasix monitor input output charting , daily weight. Replace electrolytes accordingly Patient has significant fluid overload status at this point and he is not ready for discharge expecting his stay in hospital more than 2 midnights Continue empiric Rocephin for now Wound care This patient has refused AICD in the past and his prognosis is guarded
[2019-12-10 12:07] VITALS: BMI 49.6
[2019-12-10] MEDS: cefTRIAXone\\ROCEPHIN 1 GM in Sodium Chloride 0.9% 100 ML IVPB SCH (13:48)
[2019-12-11] MEDS: Furosemide 100 MG/10 ML VIAL IVPB SCH ×2 (02:03→12:46)
[2019-12-11 04:43] LABS: #Eosinphils 0.1 thou/uL (0.0-0.7); #Monocytes 0.8 thou/uL (0.11-0.59); #Neutrophils 7.4 thou/uL (1.40-6.50); %Basophils 0.4 % (0.0-1.0); %Eosinophils 1.2 % (0.0-10.0); %Lymphocytes 10.9 % (21.0-51.0); %Monocytes 8.7 % (0.0-10.0); %Neutrophils 78.8 % (42.0-75.0); Hemoglobin 10.1 g/dL (14.0-18.0); Mean Corpuscular HGB CONC 30.4 g/dL (32.0-36.0); Mean Corpuscular Hemoglobin 27.2 pg (27.0-31.0); Mean Corpuscular Volume 89.6 fL (78.0-98.0); Mean Platelet Volume 8.2 fL (7.4-10.4); Platelet Count 234 thou/uL (130-400); RBC Distribution Width 17.9 % (11.5-14.5); Red Blood Cell (RBC) Count 3.71 mill/uL (4.70-6.10); White Blood Cell (WBC) Count 9.4 thou/uL (4.8-10.8)
[2019-12-11 05:04] LABS: Anion Gap 12 mmol/L (10-20); BUN (Urea Nitrogen) 53 mg/dL (8.4-25.7); Calc. Creatinine Clearance 84 mL/min (70-130); Calcium 8.5 mg/dL (7.8-10.44); Carbon Dioxide 24 mmol/L (23-31); Chloride 100 mmol/L (98-107); Estimated GFR-MDRD 39; Glucose 111 mg/dL (80-115); Magnesium 2.1 mg/dL (1.6-2.6); Potassium 4.8 mmol/L (3.5-5.1); Sodium 131 mmol/L (136-145)
[2019-12-11] MEDS ORDERED: Cepastat Lozenges 1 LOZ PO PRN (07:52)
[2019-12-11] MEDS ORDERED: Loratadine 10 MG TAB PO PRN (07:52)
[2019-12-11] MEDS ORDERED: Sodium Chloride 0.65% Nasal 44 ML BOT EA NARE PRN (07:52)
[2019-12-11] MEDS ORDERED: Nitroglycerin 0.4 MG TAB (25 Tab Bottle) SL PRN (07:52)
[2019-12-11] MEDS ORDERED: Loperamide HCl 2 MG CAP PO PRN (07:52)
[2019-12-11] MEDS ORDERED: Benzonatate 100 MG CAP PO PRN (07:52)
[2019-12-11] MEDS ORDERED: hydrALAZINE 20 MG/ML VIAL SLOW IVP PRN (08:32)
[2019-12-11] MEDS ORDERED: Furosemide 100 MG/10 ML VIAL SLOW IVP SCH (09:45)
--- NOTE | 2019-12-11 09:54 | PRG ---
DATE OF SERVICE: SERVICE: Advanced Heart Failure Cardiology Consulting Service. SUBJECTIVE: Mr. Fu said he had a good day. He said he is breathing easier, feels more energetic, generally feels good. However, he has persistent bilateral lower extremity pain. His pain is worse at the right heel. He says it feels like a stabbing sensation from his right heel and he is asking me to pull the knife out. However, there is no knife or any abrasion that occurred at the right heel, it is most likely a neurologic pain. REVIEW OF SYSTEMS: GENERAL: There is no fever, chills, or productive cough. HEENT: There is no change in vision, hearing, or swallowing. PULMONARY: Please see HPI. CARDIAC: There is no palpitation or syncope. No chest pains. GI: There is no nausea, vomiting, or diarrhea. : He said he is urinating well. MUSCULOSKELETAL: Bilateral lower extremity pain, especially worse in the right heel. INTEGUMENT: There is no new skin breakdown. NEUROLOGIC: There are no new focal deficits or weaknesses. MEDICATIONS: His medication cannot be reviewed because the computer system is down. However, he should be on: 1. Carvedilol 6.25 mg twice a day. 2. Amiodarone 400 mg twice a day until 10 gm load is completed 3. He should be on valsartan 40 mg p.o. b.i.d. 4. He also should be on Lasix 80 mg IV daily Telemetry was reviewed. He only has occasional PVC. Since starting off amiodarone 400 mg twice a day and increase in carvedilol to 6.25 twice a day, his ventricular tachycardia has gone away. PHYSICAL EXAMINATION: VITAL SIGNS: His latest vitals are heart rate 58, blood pressure 115/57. GENERAL: He is alert and conversational, sitting up in the bed. He is less short of breath today, appears to be more energetic. However, he still has poor insight. HEENT: Showed EOMI. Oropharynx has a very poor dentition, but moist mucosa. NECK: His JVP is at least 13 cm. PULMONARY: He has right basilar crackles, but the left base with good air movement, so he still has mild pulmonary edema. CARDIAC: Normal rate and rhythm with normal S1, S2. However, there is 2/6 holosystolic murmur at the apex. There might be a small 1/6 diastolic murmur at right sternal border. There is detectable right ventricular heave. ABDOMEN: Soft, nontender. Positive bowel sounds. EXTREMITIES: Lower extremities, he has 3+ pitting edema from the foot toward the knee on the bilateral feet. He has exquisite pain on the right heel with palpation. LABORATORY DATA: Laboratory values were extracted before the computer system went down. Sodium 131, potassium 4.8, creatinine has increased to 1.75. However, his BNP has decreased from 857 down to 781. His I's and O's are 2010 in and 2200 out; the day before, it was 480 in and 750 out apparently over the last 12 hours. ASSESSMENT: 64-year-old gentleman resides in [place] Heart Association stage D and likely [place] Heart Association class IIIB heart failure with reduced ejection fraction due to ischemic cardiomyopathy. This is acute on chronic heart failure. He remains volume overloaded. He also has a paroxysmal ventricular tachycardia that has now been suppressed by amiodarone and carvedilol. Unfortunately, he is unable to diurese currently because he just did not have cardiac output to the kidneys. So, we are losing ground. He will need to have inotropic support to remove volume. I do not plan to use this for long- term because he is not a good candidate for long-term infusion. We will need to provide inotropic support to support volume removal and afterwards, inotropic support will be titrated down. The most appropriate course of long-term for the patient will be palliative care and possibly hospice. Again, he insisted today that he does not want any machines in him, he does not want any defibrillator; however, he still wants to be full code. Please see the following for my recommendations. RECOMMENDATIONS: 1. Start Milrinone 0.125 mcg/kg per minute. a. If systolic blood pressure is greater than 95 mmHg after 1 hour, increase to 0.25 mcg/kg per minute. b. If systolic blood pressure is greater than 95 mmHg after being on 0.25 mcg/ kg per minute, then increase milrinone to 0.375 mcg/kg per minute. 2. Do not give any IV Lasix. 3. Do give IV Lasix 80 mg IV one dose after milrinone has been at 0.25 mcg/kg per minute for least 4 hours or more. 4. Please do labs today at 5 p.m. of BNP, and magnesium. 5. This patient has a very poor prognosis of biventricular failure. The Milrinone will just get the fluid off. With him not being a candidate for advanced heart failure therapy and refusing for even a defibrillator, the best option for him will be palliative care with eventual hospice. It has been a pleasure taking care of Mr. Thomas Fu. If you have any questions, please give me a call. Job ID: [id number] MTDD
[2019-12-11] MEDS: Amiodarone 200 MG TAB PO SCH ×2 (10:16→21:52)
[2019-12-11] MEDS: Aspirin Chewable 81 MG TAB PO SCH (10:16)
[2019-12-11] MEDS: Enoxaparin Sodium 40 MG/0.4 ML SYRINGE SC SCH (10:21)
[2019-12-11] MEDS: Magnesium Oxide 400 MG TAB PO SCH ×2 (10:22→21:52)
[2019-12-11] MEDS: metFORMIN 850 MG TAB PO SCH ×2 (10:23→21:54)
[2019-12-11] MEDS: Carvedilol 6.25 MG TAB PO SCH ×2 (10:24→21:52)
[2019-12-11] MEDS: Valsartan 80 MG TAB PO SCH ×2 (10:24→21:53)
[2019-12-11] MEDS: Spironolactone 25 MG TAB PO SCH (10:24)
[2019-12-11] MEDS: Milrinone Lactate/D5W 20 MG in Premix Bag 1 BAG IVPB SCH (10:34)
--- NOTE | 2019-12-11 10:58 | RAD ---
RIGHT FOOT 3 VIEWS: HISTORY: Heel pain. FINDINGS: Lateral view reveals a small enthesophyte from the plantar calcaneus measuring approximately 1.0 cm. Lateral view also reveals soft tissue calcification along the plantar fascia posteriorly suggesting calcific plantar fasciitis. Tarsals are unremarkable with mild degenerative change in the intertarsal joints and at the tarsometa tarsal joints. Mild DJD at the 1st MTP joint. No fracture or acute osseous lesion. IMPRESSION: Plantar enthesophyte with calcification within the plantar fascia posteriorly. Degenerative changes as described. POS: AH
[2019-12-11] MEDS ORDERED: Senokot S 8.6-50 MG TAB PO PRN (11:30)
[2019-12-11] MEDS: HumaLOG 300 UNITS/3 ML VIAL SC PRN (12:08)
[2019-12-11] MEDS: cefTRIAXone\\ROCEPHIN 1 GM in Sodium Chloride 0.9% 100 ML IVPB SCH (12:08)
--- NOTE | 2019-12-11 12:21 | PDOC.HOSPP ---
- Subjective Encounter Date: 12/11/19 Encounter Time: 09:00 Subjective: Patient seen and examined bedside today, no overnight event, today patient creatinine has been increased, blood pressure is running lower side but patient is asymptomatic - Objective Vital Signs & Weight: Vital Signs (12 hours) Temp Pulse Resp BP BP Pulse Ox 12/11/19 10:24 96/55 L 12/11/19 07:47 98.1 F 58 L 18 115/57 L 97 12/11/19 04:00 99.3 F 56 L 18 97/51 L 95 Weight Admit Weight 310 lb 8 oz Weight 310 lb 8 oz I&O: 12/10/19 12/11/19 12/12/19 06:59 06:59 06:59 Intake Total 2009 480 Output Total 2199 750 Balance -190 -270 Result Diagrams: 12/11/19 04:16 12/11/19 04:16 Additional Labs: Accuchecks 12/11/19 12/11/19 12/10/19 10:34 05:35 10:55 POC Glucose 209 H 115 H 173 H 12/10/19 12/09/19 12/09/19 05:17 20:08 17:02 POC Glucose 125 H 169 H 281 H 12/09/19 12/09/19 12/08/19 10:55 05:54 20:43 POC Glucose 173 H 136 H 193 H 12/08/19 17:15 POC Glucose 152 H EKG Reviewed by me: Yes Hospitalist ROS - Review of Systems Constitutional: denies: fever, chills, sweats, weakness, malaise, other ENT: denies: ear pain, ear discharge, nose pain, nose discharge, nose congestion , mouth pain, mouth swelling, throat pain, throat swelling, other Respiratory: reports: SOB with excertion. denies: cough, dry, shortness of breath, hemoptysis, pleuritic pain, sputum, wheezing, other Cardiovascular: reports: edema. denies: chest pain, palpitations, orthopnea, paroxysmal noc. dyspnea, light headedness, other Gastrointestinal: denies: nausea, vomiting, abdominal pain, diarrhea, constipation, melena, hematochezia, other Genitourinary: denies: dysuria, frequency, incontinence, hematuria, retention, other Musculoskeletal: denies: neck pain, shoulder pain, arm pain, back pain, hand pain, leg pain, foot pain, other - Medication Medications: Active Medications Generic Name Dose Route Start Last Admin Trade Name Freq PRN Reason Stop Dose Admin Hydrocodone Bitart/Acetaminophen 1 tab 12/08/19 17:22 12/09/19 21:00 [place] 5/325 PO 1 tab Q4H PRN Administration Moderate Pain (4-6) Amiodarone HCl 400 mg 12/09/19 21:00 12/11/19 10:16 Cordarone PO 12/21/19 21:01 400 mg BID JASON Administration Aspirin 81 mg 12/09/19 09:00 12/11/19 10:16 Aspirin Chewable PO 81 mg DAILY JASON Administration Carvedilol 6.25 mg 12/09/19 21:00 12/11/19 10:24 Coreg PO Not Given Q12HR JASON Enoxaparin Sodium 40 mg 12/09/19 09:00 12/11/19 10:21 Lovenox SC 40 mg 0900 JASON Administration Furosemide 80 mg 12/11/19 09:45 12/11/19 10:26 Lasix SLOW IVP 12/11/19 21:00 80 mg ASDIR JASON Administration Glipizide 5 mg 12/08/19 21:00 12/11/19 10:22 Glucotrol Xl PO 5 mg BID JASON Administration Ceftriaxone Sodium 1 gm/ 100 mls @ 200 mls/hr 12/09/19 13:00 12/11/19 12:08 Sodium Chloride IVPB 100 mls 1300 JASON Administration Milrinone Lactate/Dextrose 20 100 mls @ 5.28 mls/hr 12/11/19 09:45 12/11/19 10:34 mg/ Device IVPB 100 mls INF JASON Administration 0.125 MCG/KG/MIN Insulin Human Lispro 0 units 12/08/19 17:22 12/11/19 12:08 Humalog SC 4 unit .MODERATE SLIDING SC PRN Administration Moderate Correctional Scale Insulin Human Lispro 0 units 12/08/19 17:22 12/10/19 22:20 Humalog SC 2 unit .BEDTIME SLIDING SC PRN Administration Bedtime Correctional Scale Magnesium Oxide 800 mg 12/09/19 21:00 12/11/19 10:22 Magnesium Oxide PO 800 mg BID JASON Administration Metformin HCl 850 mg 12/08/19 21:00 12/11/19 10:23 Glucophage PO 850 mg BID JASON Administration Pantoprazole Sodium 40 mg 12/09/19 09:00 12/11/19 10:23 Protonix PO 40 mg DAILY JASON Administration Sodium Chloride 10 ml 12/10/19 09:00 12/11/19 10:23 Flush - Normal Saline IVF 10 ml Q12HR JASON Administration Spironolactone 25 mg 12/09/19 08:00 12/11/19 10:24 Aldactone PO Not Given QAM-WM JASON Valsartan 40 mg 12/10/19 09:00 12/11/19 10:24 Diovan PO Not Given BID JASON - Exam General Appearance: NAD, awake alert Eye: PERRL, anicteric sclera ENT: normocephalic atraumatic, no oropharyngeal lesions Neck: supple, symmetric, JVD Heart: RRR, no murmur, no gallops, no rubs Respiratory: rales Gastrointestinal: soft, non-tender, non-distended, normal bowel sounds Extremities: 2+ LE edema Extremities - other findings: Lower extremity wound covered with a dressing will fax that over okay thank Skin: normal turgor, no lesions Neurological: no focal deficits Musculoskeletal: normal tone, normal strength Psychiatric: normal affect, normal behavior Hosp A/P - Plan old records reviewed/req, continue antibiotics Assessment Acute on chronic respiratory failure with hypoxia due to CHF exacerbation Acute on chronic combined systolic and diastolic congestive heart failure Acute kidney injury due to cardiorenal syndrome Hypomagnesemia, corrected Hypokalemia, corrected Ischemic cardiomyopathy Coronary artery disease Cholelithiasis, asymptomatic Diabetes type 2 Hypertension Morbid obesity BMI 49 Significant volume overload Seizure disorder Possible cellulitis with a chronic wound over lower extremity Plan Patient is started on milrinone drip, Because patient blood pressure is running low and that is why we will hold on medication for today Patient is on currently Coreg, Lasix, valsartan, Aldactone, will give this medication based on hemodynamics Continue amiodarone Continue empiric Rocephin Patient prognosis is very poor and patient is continuously high risk for recurrent admission
[2019-12-11 18:47] LABS: Anion Gap 15 mmol/L (10-20); BUN (Urea Nitrogen) 56 mg/dL (8.4-25.7); Calc. Creatinine Clearance 90 mL/min (70-130); Calcium 8.5 mg/dL (7.8-10.44); Carbon Dioxide 22 mmol/L (23-31); Chloride 100 mmol/L (98-107); Estimated GFR-MDRD 42; Glucose 91 mg/dL (80-115); Magnesium 1.9 mg/dL (1.6-2.6); Potassium 4.8 mmol/L (3.5-5.1); Sodium 132 mmol/L (136-145)
[2019-12-12] MEDS: Milrinone Lactate/D5W 20 MG in Premix Bag 1 BAG IVPB SCH ×2 (03:01→23:08)
[2019-12-12 03:52] LABS: #Eosinphils 0.1 thou/uL (0.0-0.7); #Lymphocytes 1.1 thou/uL (1.20-3.40); #Monocytes 0.8 thou/uL (0.11-0.59); #Neutrophils 7.6 thou/uL (1.40-6.50); %Basophils 0.4 % (0.0-1.0); %Eosinophils 1.3 % (0.0-10.0); %Lymphocytes 11.1 % (21.0-51.0); %Monocytes 8.7 % (0.0-10.0); %Neutrophils 78.4 % (42.0-75.0); Hemoglobin 9.2 g/dL (14.0-18.0); Mean Corpuscular HGB CONC 31.3 g/dL (32.0-36.0); Mean Corpuscular Hemoglobin 27.8 pg (27.0-31.0); Mean Platelet Volume 8.3 fL (7.4-10.4); Platelet Count 242 thou/uL (130-400); RBC Distribution Width 17.6 % (11.5-14.5); Red Blood Cell (RBC) Count 3.31 mill/uL (4.70-6.10); White Blood Cell (WBC) Count 9.6 thou/uL (4.8-10.8)
[2019-12-12 04:15] LABS: Anion Gap 13 mmol/L (10-20); BUN (Urea Nitrogen) 56 mg/dL (8.4-25.7); Calc. Creatinine Clearance 97 mL/min (70-130); Calcium 8.4 mg/dL (7.8-10.44); Carbon Dioxide 24 mmol/L (23-31); Chloride 100 mmol/L (98-107); Estimated GFR-MDRD 46; Glucose 118 mg/dL (80-115); Potassium 4.5 mmol/L (3.5-5.1); Sodium 132 mmol/L (136-145)
[2019-12-12] MEDS: Valsartan 80 MG TAB PO SCH ×2 (08:24→21:12)
[2019-12-12] MEDS: Aspirin Chewable 81 MG TAB PO SCH (08:24)
[2019-12-12] MEDS: Spironolactone 25 MG TAB PO SCH (08:24)
[2019-12-12] MEDS: Magnesium Oxide 400 MG TAB PO SCH ×2 (08:24→21:11)
[2019-12-12] MEDS: Amiodarone 200 MG TAB PO SCH ×2 (08:24→21:11)
[2019-12-12] MEDS: metFORMIN 850 MG TAB PO SCH ×2 (08:25→21:12)
[2019-12-12] MEDS: Enoxaparin Sodium 40 MG/0.4 ML SYRINGE SC SCH (08:25)
[2019-12-12] MEDS: Carvedilol 6.25 MG TAB PO SCH ×2 (08:25→21:11)
[2019-12-12] MEDS ORDERED: Furosemide 100 MG/10 ML VIAL IVPB SCH (08:55)
--- NOTE | 2019-12-12 09:26 | PRG ---
DATE OF SERVICE: 12/12/2019 SUBJECTIVE: Mr. Fu had a good day. He was moved from telemetry to [facility] due to milrinone. Milrinone was started because he has qamgygd-st-fa urine output despite t.i.d. of IV Lasix, increasing creatinine. Since start of Milrinone, he has significant more urine output. He felt good with that. He said he is breathing easier, feeling better. He wants to go home. He said his right leg felt stronger quite a bit to this normal state. His left leg still edematous. REVIEW OF SYSTEMS: GENERAL: There is no fever, chills, or productive cough. HEENT: There is no change in vision, hearing, or swallowing. PULMONARY: Please see HPI. CARDIAC: There are no palpitations, syncope, or chest pain. GI: There is no nausea, vomiting, or diarrhea. : He said he is urinating well. MUSCULOSKELETAL: There are no new complaints. NEUROLOGIC: There are no new focal deficits or weaknesses. MEDICATIONS: His cardiac medications currently consisted: 1. Amiodarone 400 mg p.o. b.i.d. This is for ventricular tachycardia for 10 g low. After 10 g, it should go down to 200 mg daily. 2. Aspirin 81 mg daily. 3. Carvedilol 6.25 mg every 12 hours. 4. Enoxaparin, a DVT prophylaxis dosage, at 40 mg subcutaneous. 5. Magnesium oxide 800 mg twice a day. 6. Milrinone currently at 0.375 mcg/kg/minute. 7. Spironolactone 25 mg daily. 8. Valsartan 40 mg p.o. b.i.d. DIAGNOSTIC STUDIES: His telemetry was reviewed. He has frequent PVCs at times; however, there is no ventricular tachycardia. PHYSICAL EXAMINATION: VITAL SIGNS: His latest vitals are heart rate 74 and blood pressure 128/66. GENERAL: He is alert, conversational, reclining comfortably in bed. He is more alert, energetic, and less short of breath today. HEENT: EOMI. There is poor dentition in his oropharynx. His JVP is decreased probably around 12 cm. PULMONARY: There is good air movement bilaterally. Crackles are now gone. CARDIAC: Regular rate and rhythm. Normal S1 and S2. There is 2/6 holosystolic murmur at the apex. There is also 1/6 diastolic murmur at the right sternal border. ABDOMEN: Large, soft, nontender. Positive bowel sounds. EXTREMITIES: He has significant lower extremity, both lymph like edema and also pitting edema. In his right lower extremity, he has about 0.5 cm more pitting edema from his foot towards the knee. There is also thick skin lymph like edema. The left lower extremity has more fluid pitting edema from left foot all the way to his knee and there is also thick skin, lymphedema. LABORATORY VALUES: White cell count 9.6, hemoglobin 9.2, and platelets 242. His chemistry shows sodium 132, potassium 4.5, BUN 56, creatinine is 1.53. The creatinine has improved. His BNP has decreased from 781 down to 640. His 24- hour I's and O's of 670 in and 1850 pm out, so he has about 1.1 L net negative. 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 He is still volume overloaded. With augmentation of Milrinone, he was able to get 1.1 L off with improving renal function. However, it would take a long slow process to get rest the fluid off. I do not think he is a good candidate for chronic milrinone infusion. So for this hospitalization, we will concentrate on using 3 or 4 days of Milrinone augmentation until net negative at least a liter a day to diurese as much as possible, and after that, trying to convert to the oral regimen. So this is [id number] heart failure with reduced ejection fraction with combined systolic and diastolic dysfunctions. He also has paroxysmal ventricular tachycardia. Combination of carvedilol and amiodarone has suppressed this already. Please see the following for my recommendations. PLAN: 1. Continue milrinone 0.375 mcg/kg/minute. 2. Please give Lasix 60 mg IV one dose along with his current spironolactone 25 mg daily. This should provide enough diuresis for today. 3. Please consult Palliative Care. This is the best option for this patient. It has been a pleasure taking care of Mr. Guzman Tank. If you have any questions, please give me a call. Job ID: [id number] [facility]
[2019-12-12] MEDS: cefTRIAXone\\ROCEPHIN 1 GM in Sodium Chloride 0.9% 100 ML IVPB SCH (12:07)
--- NOTE | 2019-12-12 16:01 | PDOC.HOSPP ---
- Subjective Encounter Date: 12/12/19 Subjective: Patient reports he is doing well in general. Feels like he is breathing better. No other complaints. - Objective Vital Signs & Weight: Vital Signs (12 hours) Temp BP Pulse Ox 12/12/19 15:10 97.8 F 12/12/19 11:20 98.4 F 12/12/19 08:25 96/55 L 12/12/19 08:00 96 12/12/19 07:28 99.0 F 12/12/19 04:00 98.2 F Weight Admit Weight 310 lb 8 oz Weight 308 lb 11.2 oz Most Recent Monitor Data Heart Rate from ECG 61 NIBP 126/66 NIBP BP-Mean 86 Respiration from ECG 26 SpO2 93 I&O: 12/11/19 12/12/19 12/13/19 06:59 06:59 06:59 Intake Total 480 670 Output Total 750 4720 600 Balance -270 -1180 -600 Result Diagrams: 12/12/19 03:09 12/12/19 03:09 Additional Labs: Accuchecks 12/10/19 12/10/19 20:47 16:41 POC Glucose 204 H 199 H Hospitalist ROS - Medication Medications: Active Medications Generic Name Dose Route Start Last Admin Trade Name Freq PRN Reason Stop Dose Admin Hydrocodone Bitart/Acetaminophen 1 tab 12/08/19 17:22 12/09/19 21:00 [place] 5/325 PO 1 tab Q4H PRN Administration Moderate Pain (4-6) Amiodarone HCl 400 mg 12/09/19 21:00 12/12/19 08:24 Cordarone PO 12/21/19 21:01 400 mg BID JASON Administration Aspirin 81 mg 12/09/19 09:00 12/12/19 08:24 Aspirin Chewable PO 81 mg DAILY JASON Administration Carvedilol 6.25 mg 12/09/19 21:00 12/12/19 08:25 Coreg PO 6.25 mg Q12HR JASON Administration Enoxaparin Sodium 40 mg 12/09/19 09:00 12/12/19 08:25 Lovenox SC 40 mg 0900 JASON Administration Glipizide 5 mg 12/08/19 21:00 12/12/19 08:24 Glucotrol Xl PO 5 mg BID JASON Administration Ceftriaxone Sodium 1 gm/ 100 mls @ 200 mls/hr 12/09/19 13:00 12/12/19 12:07 Sodium Chloride IVPB 100 mls 1300 JASON Administration Milrinone Lactate/Dextrose 20 100 mls @ 5.28 mls/hr 12/11/19 09:45 12/12/19 03:01 mg/ Device IVPB 100 mls INF JASON Administration 0.125 MCG/KG/MIN Insulin Human Lispro 0 units 12/08/19 17:22 12/11/19 12:08 Humalog SC 4 unit .MODERATE SLIDING SC PRN Administration Moderate Correctional Scale Insulin Human Lispro 0 units 12/08/19 17:22 12/10/19 22:20 Humalog SC 2 unit .BEDTIME SLIDING SC PRN Administration Bedtime Correctional Scale Magnesium Oxide 800 mg 12/09/19 21:00 12/12/19 08:24 Magnesium Oxide PO 800 mg BID JASON Administration Metformin HCl 850 mg 12/08/19 21:00 12/12/19 08:25 Glucophage PO 850 mg BID JASON Administration Pantoprazole Sodium 40 mg 12/09/19 09:00 12/12/19 08:24 Protonix PO 40 mg DAILY JASON Administration Sodium Chloride 10 ml 12/10/19 09:00 12/12/19 08:25 Flush - Normal Saline IVF 10 ml Q12HR JASON Administration Spironolactone 25 mg 12/09/19 08:00 12/12/19 08:24 Aldactone PO 25 mg QAM-WM JASON Administration Valsartan 40 mg 12/10/19 09:00 12/12/19 08:24 [place] PO 40 mg BID JASON Administration - Exam General Appearance: NAD, awake alert General - other findings: Morbidly obese Heart: RRR, no murmur, no gallops, no rubs, normal peripheral pulses Respiratory: CTAB, no wheezes, no rales, no ronchi, normal chest expansion, no tachypnea, normal percussion Gastrointestinal: soft, non-tender, non-distended, normal bowel sounds, no palpable masses, no hepatomegaly, no splenomegaly, no bruit Extremities: 2+ LE edema Extremities - other findings: Large wrinkles within the skin of the lower extremities Skin: normal turgor Neurological: no focal deficits Musculoskeletal: normal tone Psychiatric: normal affect, normal behavior, A&O x 3 Hosp A/P (1) Acute and chronic respiratory failure with hypoxia Code(s): J96.21 - ACUTE AND CHRONIC RESPIRATORY FAILURE WITH HYPOXIA Status: Acute (2) Acute on chronic combined systolic and diastolic congestive heart failure Code(s): I50.43 - ACUTE ON CHRONIC COMBINED SYSTOLIC AND DIASTOLIC HRT FAIL Status: Acute (3) Acute on chronic systolic heart failure, NYHA class 3 Code(s): I50.23 - ACUTE ON CHRONIC SYSTOLIC (CONGESTIVE) HEART FAILURE Status : Acute (4) CAD (coronary artery disease) Code(s): I25.10 - ATHSCL HEART DISEASE OF [place] CORONARY ARTERY W/O ANG PCTRS Status: Chronic Qualifiers: (5) Diabetes type 2, controlled Code(s): E11.9 - TYPE 2 DIABETES MELLITUS WITHOUT COMPLICATIONS Status: Chronic (6) Dyslipidemia Code(s): E78.5 - HYPERLIPIDEMIA, UNSPECIFIED Status: Chronic (7) GERD (gastroesophageal reflux disease) Code(s): K21.9 - GASTRO-ESOPHAGEAL REFLUX DISEASE WITHOUT ESOPHAGITIS Status: Chronic (8) HTN (hypertension) Code(s): I10 - ESSENTIAL (PRIMARY) HYPERTENSION Status: Chronic Qualifiers: (9) Ischemic cardiomyopathy Code(s): I25.5 - ISCHEMIC CARDIOMYOPATHY Status: Chronic (10) Morbid obesity with BMI of 45.0-49.9, adult Code(s): E66.01 - MORBID (SEVERE) OBESITY DUE TO EXCESS CALORIES; Z68.42 - BODY MASS INDEX (BMI) 45.0-49.9, ADULT Status: Chronic (11) Seizure disorder Code(s): G40.909 - EPILEPSY, UNSP, NOT INTRACTABLE, WITHOUT STATUS EPILEPTICUS Status: Chronic - Plan Acute on chronic combined systolic and diastolic CHF: Patient is being followed by advanced heart failure medicine. He is on a milrinone drip with Lasix being added as tolerated. He does appear to be diuresing somewhat and having reasonable urine output at this time. He clearly has some decreased edema of the lower extremities as evidenced by wrinkles. He is feeling generally better as well. Hypertension: Blood pressures well controlled. No change Diabetes mellitus: Blood sugars are slightly high. Continue metformin and glipizide. Disposition: Patient will need a few more days of the IV milrinone to continue to extract as much volume overload as we can.
[2019-12-13 04:21] LABS: #Eosinphils 0.2 thou/uL (0.0-0.7); #Lymphocytes 1.1 thou/uL (1.20-3.40); #Monocytes 0.8 thou/uL (0.11-0.59); #Neutrophils 5.7 thou/uL (1.40-6.50); %Basophils 0.5 % (0.0-1.0); %Lymphocytes 13.6 % (21.0-51.0); %Monocytes 10.3 % (0.0-10.0); %Neutrophils 73.5 % (42.0-75.0); Hemoglobin 9.4 g/dL (14.0-18.0); Mean Corpuscular HGB CONC 29.8 g/dL (32.0-36.0); Mean Corpuscular Hemoglobin 26.5 pg (27.0-31.0); Mean Corpuscular Volume 88.9 fL (78.0-98.0); Mean Platelet Volume 8.1 fL (7.4-10.4); Platelet Count 247 thou/uL (130-400); RBC Distribution Width 17.7 % (11.5-14.5); Red Blood Cell (RBC) Count 3.55 mill/uL (4.70-6.10); White Blood Cell (WBC) Count 7.8 thou/uL (4.8-10.8)
[2019-12-13] MEDS: Milrinone Lactate/D5W 20 MG in Premix Bag 1 BAG IVPB SCH ×3 (06:18→18:22)
[2019-12-13] MEDS: Amiodarone 200 MG TAB PO SCH ×2 (09:17→21:35)
[2019-12-13] MEDS: Carvedilol 6.25 MG TAB PO SCH ×2 (09:17→21:35)
[2019-12-13] MEDS: Magnesium Oxide 400 MG TAB PO SCH ×2 (09:17→21:35)
[2019-12-13] MEDS: Aspirin Chewable 81 MG TAB PO SCH (09:17)
[2019-12-13] MEDS: Spironolactone 25 MG TAB PO SCH (09:18)
[2019-12-13] MEDS: metFORMIN 850 MG TAB PO SCH ×2 (09:18→21:35)
[2019-12-13] MEDS: Enoxaparin Sodium 40 MG/0.4 ML SYRINGE SC SCH (09:18)
--- NOTE | 2019-12-13 09:52 | PRG ---
DATE OF SERVICE: 12/13/2019 SERVICE: Advanced Heart Failure Cardiology Consulting Service. SUBJECTIVE: Mr. Fu had a good day. He was transferred from [facility] back to critical access hospital. He did not like [facility] because he did not like the bathroom as he want to take a shower by himself, so he was able to get a shower this morning at telemetry unit and he was quite happy with that. He responded to Lasix 60 mg IV one dose and milrinone quite well. So, he had net negative about 700 mL with just one IV dose of Lasix once. He said he is feeling more energetic and breathing well today. He wants to go home. REVIEW OF SYSTEMS: GENERAL: There is no fever, chills, or productive cough. HEENT: There is no change in vision, hearing, or swallowing. PULMONARY: Please see HPI. CARDIAC: There is no chest pain, palpitations or syncope. GI: There is no nausea, vomiting, and diarrhea. : He said he is urinating well. MUSCULOSKELETAL: There is no complaint. INTEGUMENT: He still has chronic lower extremity pain, but he says it is little bit better now with decreasing edema. NEUROLOGIC: There is no new focal deficits or weaknesses. CURRENT MEDICATIONS: 1. Aspirin 81 mg daily. 2. Carvedilol 6.25 mg every 12 hours. 3. Ceftriaxone I g daily. 4. Enoxaparin 40 mg subcutaneous daily. 5. Glipizide 5 mg b.i.d. 6. Magnesium oxide 800 mg twice a day. 7. Metformin 850 mg twice a day. 8. Milrinone currently at 0.375 mcg/kg/minute. 9. Spironolactone 25 mg daily. 10. Valsartan 40 mg b.i.d. PHYSICAL EXAMINATION: His telemetry was reviewed. He is in sinus rhythm. He has occasional PVC since start of amiodarone. Correcting his magnesium, he does not have any more ventricular tachycardia. VITAL SIGNS: His latest vitals, heart rate 83, blood pressure 120/65. GENERAL: He is alert, conversational, sitting in bed comfortably, eating breakfast. He is less short of breath. HEENT: EOMI. His oropharynx is bad. He has really poor dentition. NECK: His JVP is about 12 cm. PULMONARY: There is good clear to auscultation air movement bilaterally, but this is his best lung sounds yet. CARDIAC: Regular rate and rhythm with normal S1, S2, there is 2/6 holosystolic murmur at the left apex. There is some slight 1/6 diastolic murmur at the right sternal border. There is some possibly a right ventricular heave. ABDOMEN: Soft, nontender. Positive bowel sounds. Bowels are extended. EXTREMITIES: Lower extremity, there is greater edema on the right than left. On the right, there is about 1 cm pitting edema from right foot about two thirds way up towards the knees. However, the skin is quite thick resembling either lymphedema or chronic remodeling due to chronic edema. Left lower extremity, he has 0.5 cm edema from left foot about two thirds way towards the knees, again there is thickened skin. LABORATORY VALUES: There is no new chemistry for today's laboratory values so this need to be done. ASSESSMENT: 64-year-old gentleman with heart failure with reduced ejection fraction due to ischemic cardiomyopathy, is currently showing good compensation while on milrinone 0.375 mcg/kg/minute. He has paroxysmal ventricular tachycardia. V-Tach is under control with combination of amiodarone, carvedilol , and electrolyte supplementation. He is still volume overloaded. He still needs milrinone augmentation to provide effective diuresis. Overall, we aim to get him as dry as much possible. Upon reaching a good dry point, then we will titrate off the milrinone and switch to oral medications only. At that point then he can be discharged. However, we really need to know what his laboratory values are to adjust his medication. RECOMMENDATIONS: 1. Continue milrinone 0.375 mcg/kg/minute for now. 2. Stop valsartan. 3. Replace valsartan with Entresto 24/ combination b.i.d. 4. Since the laboratory value comes back, then we will select the dosage of either the IV Lasix or oral torsemide. 5. Please do stat labs so we would know what the electrolyte values are to take the right diuretic. It has been a pleasure taking care of Mr. Fu. If you have any questions, please give me a call. Job ID: [id number] [facility]
[2019-12-13] MEDS: cefTRIAXone\\ROCEPHIN 1 GM in Sodium Chloride 0.9% 100 ML IVPB SCH (14:25)
--- NOTE | 2019-12-13 14:57 | PDOC.HOSPP ---
- Subjective Encounter Date: 12/13/19 Subjective: Patient is doing fine. He is in a good humor today. He has no complaints. Happy that his legs are "skinny" again. - Objective Vital Signs & Weight: Vital Signs (12 hours) Temp Pulse Resp BP Pulse Ox 12/13/19 11:33 97.6 F 65 19 127/59 L 96 12/13/19 09:11 97.3 F L 65 19 131/56 L 92 L 12/13/19 03:20 98.6 F 83 20 120/65 95 Weight Admit Weight 310 lb 8 oz Weight 307 lb 3.2 oz Most Recent Monitor Data Heart Rate from ECG 69 NIBP 120/59 NIBP BP-Mean 79 Respiration from ECG 27 SpO2 90 I&O: 12/12/19 12/13/19 12/14/19 06:59 06:59 06:59 Intake Total 670 1550 Output Total 3134 2275 Balance -6153 -985 Result Diagrams: 12/13/19 03:44 12/12/19 03:09 Additional Labs: Accuchecks 12/13/19 12/13/19 12/12/19 11:08 05:39 20:44 POC Glucose 124 H 125 H 136 H 12/12/19 12/12/19 12/12/19 18:25 10:41 05:38 POC Glucose 114 H 152 H 115 H 12/11/19 12/11/19 20:35 16:35 POC Glucose 133 H 98 Hospitalist ROS - Medication Medications: Active Medications Generic Name Dose Route Start Last Admin Trade Name Freq PRN Reason Stop Dose Admin Hydrocodone Bitart/Acetaminophen 1 tab 12/08/19 17:22 12/09/19 21:00 [place] 5/325 PO 1 tab Q4H PRN Administration Moderate Pain (4-6) Amiodarone HCl 400 mg 12/09/19 21:00 12/13/19 09:17 Cordarone PO 12/21/19 21:01 400 mg BID JASON Administration Aspirin 81 mg 12/09/19 09:00 12/13/19 09:17 Aspirin Chewable PO 81 mg DAILY JASON Administration Carvedilol 6.25 mg 12/09/19 21:00 12/13/19 09:17 Coreg PO 6.25 mg Q12HR JASON Administration Enoxaparin Sodium 40 mg 12/09/19 09:00 12/13/19 09:18 Lovenox SC 40 mg 0900 JASON Administration Glipizide 5 mg 12/08/19 21:00 12/13/19 09:18 Glucotrol Xl PO 5 mg BID JASON Administration Milrinone Lactate/Dextrose 20 100 mls @ 5.28 mls/hr 12/11/19 09:45 12/13/19 12:55 mg/ Device IVPB 100 mls INF JASON Administration 0.125 MCG/KG/MIN Insulin Human Lispro 0 units 12/08/19 17:22 12/11/19 12:08 Humalog SC 4 unit .MODERATE SLIDING SC PRN Administration Moderate Correctional Scale Insulin Human Lispro 0 units 12/08/19 17:22 12/10/19 22:20 Humalog SC 2 unit .BEDTIME SLIDING SC PRN Administration Bedtime Correctional Scale Magnesium Oxide 800 mg 12/09/19 21:00 12/13/19 09:17 Magnesium Oxide PO 800 mg BID JASON Administration Metformin HCl 850 mg 12/08/19 21:00 12/13/19 09:18 Glucophage PO 850 mg BID JASON Administration Pantoprazole Sodium 40 mg 12/09/19 09:00 12/13/19 09:17 Protonix PO 40 mg DAILY JASON Administration Sacubitril/Valsartan 1 tab 12/13/19 09:00 12/13/19 09:18 Entresto 24 Mg-26 Mg Tablet PO 1 tab Q12HR JASON Administration Sodium Chloride 10 ml 12/10/19 09:00 12/13/19 09:18 Flush - Normal Saline IVF Not Given Q12HR JASON Spironolactone 25 mg 12/09/19 08:00 12/13/19 09:18 Aldactone PO 25 mg QAM-WM JASON Administration - Exam General Appearance: NAD, awake alert General - other findings: Morbidly obese Heart: RRR, no murmur, no gallops, no rubs, normal peripheral pulses Respiratory: CTAB, no wheezes, no rales, no ronchi, normal chest expansion, no tachypnea, normal percussion Gastrointestinal: soft, non-tender, non-distended, normal bowel sounds, no palpable masses, no hepatomegaly, no splenomegaly, no bruit Extremities - other findings: Deep wrinkles on BLE's. Min edema. Chronic stasis dermatitis Psychiatric: normal affect, normal behavior, A&O x 3 Hosp A/P (1) Acute and chronic respiratory failure with hypoxia Code(s): J96.21 - ACUTE AND CHRONIC RESPIRATORY FAILURE WITH HYPOXIA Status: Acute (2) Acute on chronic combined systolic and diastolic congestive heart failure Code(s): I50.43 - ACUTE ON CHRONIC COMBINED SYSTOLIC AND DIASTOLIC HRT FAIL Status: Acute (3) Acute on chronic systolic heart failure, NYHA class 3 Code(s): I50.23 - ACUTE ON CHRONIC SYSTOLIC (CONGESTIVE) HEART FAILURE Status : Acute (4) CAD (coronary artery disease) Code(s): I25.10 - ATHSCL HEART DISEASE OF [place] CORONARY ARTERY W/O ANG PCTRS Status: Chronic Qualifiers: (5) Diabetes type 2, controlled Code(s): E11.9 - TYPE 2 DIABETES MELLITUS WITHOUT COMPLICATIONS Status: Chronic (6) Dyslipidemia Code(s): E78.5 - HYPERLIPIDEMIA, UNSPECIFIED Status: Chronic (7) GERD (gastroesophageal reflux disease) Code(s): K21.9 - GASTRO-ESOPHAGEAL REFLUX DISEASE WITHOUT ESOPHAGITIS Status: Chronic (8) HTN (hypertension) Code(s): I10 - ESSENTIAL (PRIMARY) HYPERTENSION Status: Chronic Qualifiers: (9) Ischemic cardiomyopathy Code(s): I25.5 - ISCHEMIC CARDIOMYOPATHY Status: Chronic (10) Morbid obesity with BMI of 45.0-49.9, adult Code(s): E66.01 - MORBID (SEVERE) OBESITY DUE TO EXCESS CALORIES; Z68.42 - BODY MASS INDEX (BMI) 45.0-49.9, ADULT Status: Chronic (11) Seizure disorder Code(s): G40.909 - EPILEPSY, UNSP, NOT INTRACTABLE, WITHOUT STATUS EPILEPTICUS Status: Chronic - Plan Acute on chronic combined systolic and diastolic CHF: Patient is being followed by advanced heart failure medicine. He is on a milrinone drip with Lasix being added as tolerated. He does appear to be diuresing somewhat and having reasonable urine output at this time. He clearly has some decreased edema of the lower extremities as evidenced by wrinkles. He is feeling generally better as well. Transitioning over to Entresto. Goal will be to add some with carvedilol and diuretics. Hypertension: Blood pressures well controlled. No change Diabetes mellitus: Blood sugars are slightly high. Continue metformin and glipizide. Disposition: Patient will need a few more days of the IV milrinone to continue to extract as much volume overload as we can.
[2019-12-13 15:08] LABS: Anion Gap 15 mmol/L (10-20); BUN (Urea Nitrogen) 49 mg/dL (8.4-25.7); Calc. Creatinine Clearance 118 mL/min (70-130); Carbon Dioxide 21 mmol/L (23-31); Chloride 102 mmol/L (98-107); Estimated GFR-MDRD 58; Glucose 108 mg/dL (80-115); Potassium 4.9 mmol/L (3.5-5.1); Sodium 133 mmol/L (136-145)
[2019-12-13] MEDS ORDERED: Furosemide 100 MG/10 ML VIAL SLOW IVP SCH (15:30)
--- NOTE | 2019-12-13 15:42 | PDOC.PALPN ---
Palliative Progress Note - Subjective Awake, alert. Cheerful, oriented, however limited ability to comprehend gravity of cardiac disease. - Objective Vital Signs: Vital Signs - Most Recent Temp Pulse Resp BP Pulse Ox 97.6 F 65 19 127/59 L 96 12/13/19 11:33 12/13/19 11:33 12/13/19 11:33 12/13/19 11:33 12/13/19 11:33 - Physical Exam Constitutional: confusion HEENT: EOMI, moist MMs, sclera anicteric, poor dentition Respiratory: no wheezing Deviation from normal: mildly labored with exertion Cardiovascular: RRR Gastrointestinal: soft Deviation from normal: obese Genitourinary: continent Musculoskeletal: edema present Neurology: moves all 4 limbs, no focal deficits Skin: cap refill <2 seconds, no lesions, no rash Psychiatric: A&O x 3, normal mood - Assessment (1) Palliative care encounter Code(s): Z51.5 - ENCOUNTER FOR PALLIATIVE CARE Current Visit: Yes Status: Acute (2) Acute and chronic respiratory failure with hypoxia Code(s): J96.21 - ACUTE AND CHRONIC RESPIRATORY FAILURE WITH HYPOXIA Current Visit: Yes Status: Acute (3) Acute and chronic respiratory failure Code(s): J96.20 - ACUTE AND CHR RESP FAILURE, UNSP W HYPOXIA OR HYPERCAPNIA Current Visit: No Status: Acute (4) Acute on chronic combined systolic and diastolic congestive heart failure Code(s): I50.43 - ACUTE ON CHRONIC COMBINED SYSTOLIC AND DIASTOLIC HRT FAIL Current Visit: No Status: Acute (5) Acute on chronic systolic heart failure, NYHA class 3 Code(s): I50.23 - ACUTE ON CHRONIC SYSTOLIC (CONGESTIVE) HEART FAILURE Current Visit: No Status: Acute (6) Diabetes type 2, controlled Code(s): E11.9 - TYPE 2 DIABETES MELLITUS WITHOUT COMPLICATIONS Current Visit : No Status: Chronic (7) Morbid obesity with BMI of 45.0-49.9, adult Code(s): E66.01 - MORBID (SEVERE) OBESITY DUE TO EXCESS CALORIES; Z68.42 - BODY MASS INDEX (BMI) 45.0-49.9, ADULT Current Visit: No Status: Chronic - Plan Plan: Palliative Care has attempted to provide education in relation to multiple morbidities and disease trajectory. Patient lack capacity to comprehend. He states "I had ppl care for me at home, but they came and saw me and didn't come anymore". Attempting to contact patent niece who is primary caregiver as patient has no children or spouse. Left message for return call. Attempting to discuss transition to home setting with Hospice to manage symptoms related to terminal condition. Patient previously had [facility] as per Case Management. Please also refer to Palliative Care RN notes in note section. [30] minutes spent on this encounter with >50% of the time in counseling and coordination of care. - ROS Constitutional: alert ENT: alteration in dentition Respiratory: other (Denies shortness of breath) Cardiology: other (denies chest pain, palpitations) Gastrointestinal: other (denies nausea, vomiting) Musculoskeletal: other
[2019-12-13] MEDS: Zolpidem Tartrate 5 MG TAB PO PRN (21:35)
[2019-12-14] MEDS: Milrinone Lactate/D5W 20 MG in Premix Bag 1 BAG IVPB SCH ×4 (00:15→18:14)
[2019-12-14 08:36] LABS: Anion Gap 11 mmol/L (10-20); BUN (Urea Nitrogen) 42 mg/dL (8.4-25.7); Calc. Creatinine Clearance 117 mL/min (70-130); Calcium 8.7 mg/dL (7.8-10.44); Carbon Dioxide 26 mmol/L (23-31); Chloride 101 mmol/L (98-107); Estimated GFR-MDRD 58; Glucose 162 mg/dL (80-115); Magnesium 1.7 mg/dL (1.6-2.6); Potassium 4.9 mmol/L (3.5-5.1); Sodium 133 mmol/L (136-145)
[2019-12-14] MEDS: Enoxaparin Sodium 40 MG/0.4 ML SYRINGE SC SCH (08:39)
[2019-12-14] MEDS: Carvedilol 6.25 MG TAB PO SCH ×2 (08:40→21:10)
[2019-12-14] MEDS: Amiodarone 200 MG TAB PO SCH ×2 (08:41→21:10)
[2019-12-14] MEDS: Aspirin Chewable 81 MG TAB PO SCH (08:41)
[2019-12-14] MEDS: metFORMIN 850 MG TAB PO SCH ×2 (08:41→21:10)
[2019-12-14] MEDS: Magnesium Oxide 400 MG TAB PO SCH ×2 (08:42→21:10)
[2019-12-14] MEDS: Spironolactone 25 MG TAB PO SCH (08:43)
[2019-12-14] MEDS ORDERED: Magnesium 2 GM/50 ML 2 GM in Premix Bag 1 BAG IVPB SCH (09:00)
[2019-12-14] MEDS ORDERED: Milrinone Lactate/D5W 20 MG in Premix Bag 1 BAG IVPB SCH (09:00)
[2019-12-14] MEDS: Torsemide 20 MG TAB PO SCH (09:28)
--- NOTE | 2019-12-14 10:22 | PRG ---
DATE OF SERVICE: 12/14/2019 SERVICE: Advanced Heart Failure Cardiology Consulting Service. SUBJECTIVE: Mr. Fu had an excellent day. He had a large effective diuresis of greater than 3.3 L. He said "I felt really good." He said he felt strong enough where he was able to walk down the [place] much further. He is quite pleased with this; however, he said he does not like the food and asked the nurse to bring him other food. His leg pain also has decreased. REVIEW OF SYSTEMS: GENERAL: There is no fever, chills, or productive cough. HEENT: There is no change in vision, hearing, or swallowing. PULMONARY: Please see HPI. CARDIAC: There is no palpitation, chest pain or syncope. GI: There is no nausea, vomiting, diarrhea. : He is urinating well. MUSCULOSKELETAL: There is no new complaint. INTEGUMENT: There are no new complaints. NEUROLOGIC: There are no new focal deficits or weaknesses. CURRENT MEDICATIONS: His current medications that can affect his cardiac function are; 1. Amiodarone 400 mg b.i.d. for 10 gram load; after that 200 mg daily. 2. Aspirin 81 mg daily. 3. Carvedilol 6.25 mg twice a day. 4. Enoxaparin 40 mg subcu daily. 5. Magnesium oxide 800 mg twice a day. 6. Milrinone at 0.375 mcg/kg per minute. 7. Entresto 24/ combination one tablet twice a day. 8. Spironolactone 25 mg daily. 9. He does receive Lasix 80 mg IV yesterday. Telemetry was reviewed. He has a short run of a 4- or 5-beat of wide-complex tachycardia. Besides that, there is no other concerning tachyarrhythmia. He does have more frequent PVCs. PHYSICAL EXAMINATION: VITAL SIGNS: His latest vitals are; heart rate 73, blood pressure 101/54. GENERAL: He is alert, conversational, finishing his breakfast. He is less short of breath today, but he is still bit tachypneic. HEENT: Shows EOMI. Oropharynx has moist mucosa; however, he has a very poor dentition. NECK: JVP is about 10 cm with positive hepatojugular reflux. PULMONARY: Clear to auscultation bilaterally. Good air movement bilateral, there is a best yet. CARDIAC: Regular rate and rhythm, normal S1 and S2, there is 2/6 holosystolic murmur at the apex. ABDOMEN: Very large, but soft, nontender. Positive bowel sounds. EXTREMITIES: Right lower extremities have thick skin, but not wrinkle; however, there is pitting edema at the foot and slight pitting edema from ankle to 1/[address] way toward his knee. His left foot has about 0.5 cm pitting edema, but the edema is decreased. He has pitting edema to about 2/[address] toward his knee. Again, his skin is quite thickened and wrinkle between knee and ankle. LABORATORY VALUES: Today are; sodium 133, potassium 4.9, bicarb is 26, BUN at 42, creatinine is 1.25, and magnesium at 1.7. ASSESSMENT: 64-year-old male, who resides in [facility] likely to be stage D and also [place] Heart Association class IIIB heart failure with reduced ejection fraction. It is an ischemic cardiomyopathy that has both systolic and diastolic dysfunctions. This is an [id number] heart failure. Since augmentation of milrinone, he has achieved excellent effective diuresis. Yesterday, his net diuresis was 2.5 L. Milrinone has also improved his renal function back to normal. At this point, we can slowly change from IV Lasix to oral torsemide. We can also titrate off milrinone over the next 2 days, so he will be discharged home Tuesday or Tuesday. Please see the following of my recommendations. RECOMMENDATIONS: 1. Start torsemide 40 mg p.o. daily. 2. Please give magnesium sulfate 2 g IV one dose. 3. Decrease milrinone to 0.25 mcg/kg per minute tonight at 7 p.m. We will need to follow how he does tomorrow. It has been a pleasure of taking care of Mr. Fu. If you have any questions, please give me a call. Job ID: [id number] MTDD
--- NOTE | 2019-12-14 13:56 | PDOC.HOSPP ---
- Subjective Encounter Date: 12/14/19 Subjective: Generally doing well. He has no complaints today. Feeling well in general and eager to try to get back on. - Objective Vital Signs & Weight: Vital Signs (12 hours) Temp Pulse Resp BP Pulse Ox 12/14/19 12:25 98.1 F 67 18 130/58 L 95 12/14/19 08:31 97.8 F 66 18 116/55 L 96 12/14/19 04:40 98.4 F 66 19 109/57 L 93 L 12/14/19 04:15 66 109/57 L 12/14/19 03:15 60 109/53 L 12/14/19 02:15 66 129/61 Weight Admit Weight 310 lb 8 oz Weight 306 lb 3.2 oz Most Recent Monitor Data Heart Rate from ECG 69 NIBP 120/59 NIBP BP-Mean 79 Respiration from ECG 27 SpO2 90 I&O: 12/13/19 12/14/19 12/15/19 06:59 06:59 06:59 Intake Total 1550 766.1 Output Total 2276 3300 Balance -168 -6919.9 Result Diagrams: 12/13/19 03:44 12/14/19 08:02 Additional Labs: Accuchecks 12/14/19 12/14/19 12/13/19 10:29 06:02 20:22 POC Glucose 171 H 129 H 140 H 12/13/19 12/12/19 12/12/19 16:46 20:44 18:25 POC Glucose 146 H 136 H 114 H 12/12/19 12/12/19 12/11/19 10:41 05:38 20:35 POC Glucose 152 H 115 H 133 H 12/11/19 16:35 POC Glucose 98 Hospitalist ROS - Medication Medications: Active Medications Generic Name Dose Route Start Last Admin Trade Name Freq PRN Reason Stop Dose Admin Hydrocodone Bitart/Acetaminophen 1 tab 12/08/19 17:22 12/09/19 21:00 [place] 5/325 PO 1 tab Q4H PRN Administration Moderate Pain (4-6) Amiodarone HCl 400 mg 12/09/19 21:00 12/14/19 08:41 Cordarone PO 12/21/19 21:01 400 mg BID JASON Administration Aspirin 81 mg 12/09/19 09:00 12/14/19 08:41 Aspirin Chewable PO 81 mg DAILY JASON Administration Carvedilol 6.25 mg 12/09/19 21:00 12/14/19 08:40 Coreg PO 6.25 mg Q12HR JASNO Administration Enoxaparin Sodium 40 mg 12/09/19 09:00 12/14/19 08:39 Lovenox SC 40 mg 0900 JASON Administration Glipizide 5 mg 12/08/19 21:00 12/14/19 08:43 Glucotrol Xl PO 5 mg BID JASON Administration Milrinone Lactate/Dextrose 20 100 mls @ 15.84 mls/hr 12/14/19 09:30 12/14/19 12:34 mg/ Device IVPB 12/14/19 19:00 100 mls INF JASON Administration 0.375 MCG/KG/MIN Insulin Human Lispro 0 units 12/08/19 17:22 12/11/19 12:08 Humalog SC 4 unit .MODERATE SLIDING SC PRN Administration Moderate Correctional Scale Insulin Human Lispro 0 units 12/08/19 17:22 12/10/19 22:20 Humalog SC 2 unit .BEDTIME SLIDING SC PRN Administration Bedtime Correctional Scale Magnesium Oxide 800 mg 12/09/19 21:00 12/14/19 08:42 Magnesium Oxide PO 800 mg BID JASON Administration Metformin HCl 850 mg 12/08/19 21:00 12/14/19 08:41 Glucophage PO 850 mg BID JASON Administration Pantoprazole Sodium 40 mg 12/09/19 09:00 12/14/19 08:41 Protonix PO 40 mg DAILY JASON Administration Sacubitril/Valsartan 1 tab 12/13/19 09:00 12/14/19 08:42 Entresto 24 Mg-26 Mg Tablet PO 1 tab Q12HR JASON Administration Sodium Chloride 10 ml 12/10/19 09:00 12/14/19 08:44 Flush - Normal Saline IVF Not Given Q12HR JASON Spironolactone 25 mg 12/09/19 08:00 12/14/19 08:43 Aldactone PO 25 mg QAM-WM JASON Administration Torsemide 40 mg 12/14/19 09:00 12/14/19 09:28 Demadex PO 40 mg DAILY JASON Administration Zolpidem Tartrate 5 mg 12/11/19 07:52 12/13/19 21:35 Ambien PO 5 mg HSPRN PRN Administration Insomnia - Exam General Appearance: NAD, awake alert General - other findings: Obese. Heart: RRR, no murmur, no gallops, no rubs, normal peripheral pulses Respiratory: CTAB, no wheezes, no rales, no ronchi, normal chest expansion, no tachypnea, normal percussion Gastrointestinal: soft, non-tender, non-distended, normal bowel sounds, no palpable masses, no hepatomegaly, no splenomegaly, no bruit Extremities: no cyanosis, no clubbing, no edema Extremities - other findings: Very wrinkled skin of the legs without significant edema at this point. Neurological: no new deficit Musculoskeletal: normal tone Psychiatric: normal affect, normal behavior Hosp A/P (1) Acute and chronic respiratory failure with hypoxia Code(s): J96.21 - ACUTE AND CHRONIC RESPIRATORY FAILURE WITH HYPOXIA Status: Acute (2) Acute on chronic combined systolic and diastolic congestive heart failure Code(s): I50.43 - ACUTE ON CHRONIC COMBINED SYSTOLIC AND DIASTOLIC HRT FAIL Status: Acute (3) Acute on chronic systolic heart failure, NYHA class 3 Code(s): I50.23 - ACUTE ON CHRONIC SYSTOLIC (CONGESTIVE) HEART FAILURE Status : Acute (4) CAD (coronary artery disease) Code(s): I25.10 - ATHSCL HEART DISEASE OF [place] CORONARY ARTERY W/O ANG PCTRS Status: Chronic Qualifiers: (5) Diabetes type 2, controlled Code(s): E11.9 - TYPE 2 DIABETES MELLITUS WITHOUT COMPLICATIONS Status: Chronic (6) Dyslipidemia Code(s): E78.5 - HYPERLIPIDEMIA, UNSPECIFIED Status: Chronic (7) GERD (gastroesophageal reflux disease) Code(s): K21.9 - GASTRO-ESOPHAGEAL REFLUX DISEASE WITHOUT ESOPHAGITIS Status: Chronic (8) HTN (hypertension) Code(s): I10 - ESSENTIAL (PRIMARY) HYPERTENSION Status: Chronic Qualifiers: (9) Ischemic cardiomyopathy Code(s): I25.5 - ISCHEMIC CARDIOMYOPATHY Status: Chronic (10) Morbid obesity with BMI of 45.0-49.9, adult Code(s): E66.01 - MORBID (SEVERE) OBESITY DUE TO EXCESS CALORIES; Z68.42 - BODY MASS INDEX (BMI) 45.0-49.9, ADULT Status: Chronic (11) Seizure disorder Code(s): G40.909 - EPILEPSY, UNSP, NOT INTRACTABLE, WITHOUT STATUS EPILEPTICUS Status: Chronic - Plan Acute on chronic combined systolic and diastolic CHF: Patient is being followed by advanced heart failure medicine. He is on a milrinone drip with Lasix being added as tolerated. He does appear to be diuresing somewhat and having reasonable urine output at this time. He clearly has some decreased edema of the lower extremities as evidenced by wrinkles. He is feeling generally better as well. Transitioning over to Entrest and oral diuretics. Hypertension: Blood pressures well controlled. No change Diabetes mellitus: Blood sugars are slightly high. Continue metformin and glipizide. Disposition: So far tolerating the transition over to an oral regimen well. Once he is weaned off the milrinone and on a purely oral regimen he can discharged home.
[2019-12-14] MEDS: HumaLOG 300 UNITS/3 ML VIAL SC PRN (17:28)
[2019-12-14] MEDS: Zolpidem Tartrate 5 MG TAB PO PRN (21:10)
[2019-12-15] MEDS: Milrinone Lactate/D5W 20 MG in Premix Bag 1 BAG IVPB SCH ×2 (01:40→12:26)
[2019-12-15 05:12] LABS: Anion Gap 12 mmol/L (10-20); BUN (Urea Nitrogen) 35 mg/dL (8.4-25.7); Calc. Creatinine Clearance 121 mL/min (70-130); Carbon Dioxide 26 mmol/L (23-31); Chloride 101 mmol/L (98-107); Estimated GFR-MDRD 62; Glucose 150 mg/dL (80-115); Magnesium 1.8 mg/dL (1.6-2.6); Potassium 4.9 mmol/L (3.5-5.1); Sodium 134 mmol/L (136-145)
[2019-12-15] MEDS: Spironolactone 25 MG TAB PO SCH (08:38)
[2019-12-15] MEDS: Carvedilol 6.25 MG TAB PO SCH ×2 (08:38→20:43)
[2019-12-15] MEDS: Aspirin Chewable 81 MG TAB PO SCH (08:38)
[2019-12-15] MEDS: Amiodarone 200 MG TAB PO SCH ×2 (08:38→20:43)
[2019-12-15] MEDS: Enoxaparin Sodium 40 MG/0.4 ML SYRINGE SC SCH (08:39)
[2019-12-15] MEDS: Magnesium Oxide 400 MG TAB PO SCH ×3 (08:39→20:42)
[2019-12-15] MEDS: Torsemide 20 MG TAB PO SCH (08:39)
[2019-12-15] MEDS: metFORMIN 850 MG TAB PO SCH ×2 (08:39→20:43)
[2019-12-15] MEDS ORDERED: Magnesium 2 GM/50 ML 2 GM in Premix Bag 1 BAG IVPB SCH (10:30)
--- NOTE | 2019-12-15 10:50 | PRG ---
DATE OF SERVICE: 12/15/2019 SERVICE: Advanced Heart Failure Cardiology Consulting Service. SUBJECTIVE: Mr. Fu had a good day. He felt good. He believed he has a large urine output. He is breathing easier. He said his legs has gotten smaller. His leg pain also has decreased. However, the PT did not come by to walk with him. He is looking forward to walking with PT/OT today. He believed he is ready to go home. REVIEW OF SYSTEMS: GENERAL: There is no fever, chills, or productive cough. HEENT: There is no change in vision, hearing, or swallowing. PULMONARY: Please see HPI. CARDIAC: There is no palpitations, chest pain, or syncope. GI: There is no nausea, vomiting, or diarrhea. : He is urinating well. MUSCULOSKELETAL: His leg pains have decreased. INTEGUMENT: There are no new skin breakdown. NEUROLOGIC: There are no new focal deficits or weaknesses. MEDICATIONS: His medications that have impact on heart function include: 1. Amiodarone 400 mg twice a day for 10 g low. 2. Aspirin 81 mg daily. 3. Carvedilol 6.25 mg q.12 hours. 4. Magnesium oxide 800 mg twice a day. 5. Milrinone currently at 0.25 mcg/kg/minute. 6. Entresto 24/26 combination one tablet twice a day. 7. Spironolactone 25 mg daily. 8. Torsemide at 40 mg daily. PHYSICAL EXAMINATION: Telemetry was reviewed. There are occasional PVCs. He is in sinus rhythm. There are no recurrence of ventricular tachycardia. There has been no recurrence for many days now. VITAL SIGNS: His latest vital signs include heart rate 67, blood pressure 117/ 57. Second vitals show heart rate 64, blood pressure 120/60. GENERAL: He is alert, conversational, reclining comfortably in bed, eating his breakfast. He is much less short of breath than his admission and he can talk well now. HEENT: Show EOMI. Oropharynx shows very poor dentition, but has a moist mucosa. NECK: His JVP is now down to about 10 cm. This is the lowest yet. PULMONARY: Clear to auscultation bilaterally. This is the first time it is clear. CARDIAC: normal rate and rhythm, S1/S2, 2/6 holosystolic murmur at the apex ABDOMEN: Large, soft, nontender. Positive bowel sounds. EXTREMITIES: Lower extremities, there is a very much thickened skin from his knee down to his feet. However, the edema has continued to decrease. There is still some pitting edema of the left lower extremity and a little bit more so on the right lower extremity. However, edema at both feet has significantly decreased. His I's and O's for last 24 hours documented as 1161 in and 3650 out, so he is net negative 2.5 L approximately. ASSESSMENT: 64-year-old gentleman is making steady progress in diuresis. He also has improvement in renal function. This is done with combination of milrinone and IV Lasix and he has made successful change from IV Lasix to oral torsemide. He is still volume overloaded. However, this will take some time to get it off. Now, we will attempt to titrate off milrinone to see if he can tolerate that. If he can tolerate milrinone, then he can probably be discharged. His oral regimen hopefully could be a combination of carvedilol, Entresto, spironolactone , and torsemide. Please see the following for my recommendations. RECOMMENDATIONS: 1. Decrease milrinone down to 0.125 mcg/kg/minute. 2. Continue torsemide 40 mg daily to see if it is really effective. 3. We will plan to titrate off torsemide tomorrow. If everything goes well, he may be due to be able to discharged on Tuesday. 4. However, I believe he needs home health care and close followup. It has been a pleasure taking care of Mr. Fu. If you have any questions, please give me a call. Job ID: [id number] [facility]
--- NOTE | 2019-12-15 16:11 | PDOC.HOSPP ---
- Subjective Encounter Date: 12/15/19 Encounter Time: 11:20 Subjective: seen this am, d/w dr. cowan, plan to stop milrinone. home hospice. - Objective Vital Signs & Weight: Vital Signs (12 hours) Temp Pulse Pulse Resp BP BP BP 12/15/19 11:31 68 131/60 12/15/19 08:38 133/61 12/15/19 08:10 98.2 F 64 16 133/61 Pulse Ox 12/15/19 11:31 12/15/19 08:38 12/15/19 08:10 93 L Weight Admit Weight 310 lb 8 oz Weight 300 lb 8 oz Most Recent Monitor Data Heart Rate from ECG 69 NIBP 120/59 NIBP BP-Mean 79 Respiration from ECG 27 SpO2 90 I&O: 12/14/19 12/15/19 12/16/19 06:59 06:59 06:59 Intake Total 766.1 1161 Output Total 3300 3650 Balance -9153.9 -6829 Result Diagrams: 12/13/19 03:44 12/15/19 04:18 Additional Labs: Accuchecks 12/15/19 12/15/19 12/14/19 11:22 05:19 16:25 POC Glucose 130 H 141 H 170 H Hospitalist ROS - Medication Medications: Active Medications Generic Name Dose Route Start Last Admin Trade Name Freq PRN Reason Stop Dose Admin Hydrocodone Bitart/Acetaminophen 1 tab 12/08/19 17:22 12/09/19 21:00 [place] 5/325 PO 1 tab Q4H PRN Administration Moderate Pain (4-6) Amiodarone HCl 400 mg 12/09/19 21:00 12/15/19 08:38 Cordarone PO 12/21/19 21:01 400 mg BID JASON Administration Aspirin 81 mg 12/09/19 09:00 12/15/19 08:38 Aspirin Chewable PO 81 mg DAILY JASON Administration Carvedilol 6.25 mg 12/09/19 21:00 12/15/19 08:38 Coreg PO 6.25 mg Q12HR JASON Administration Enoxaparin Sodium 40 mg 12/09/19 09:00 12/15/19 08:39 Lovenox SC 40 mg 0900 JASON Administration Glipizide 5 mg 12/08/19 21:00 12/15/19 08:38 Glucotrol Xl PO 5 mg BID JASON Administration Milrinone Lactate/Dextrose 20 100 mls @ 5.28 mls/hr 12/14/19 19:00 12/15/19 12:26 mg/ Device IVPB 100 mls INF JASON Administration 0.125 MCG/KG/MIN Insulin Human Lispro 0 units 12/08/19 17:22 12/14/19 17:28 Humalog SC 2 unit .MODERATE SLIDING SC PRN Administration Moderate Correctional Scale Insulin Human Lispro 0 units 12/08/19 17:22 12/10/19 22:20 Humalog SC 2 unit .BEDTIME SLIDING SC PRN Administration Bedtime Correctional Scale Magnesium Oxide 800 mg 12/15/19 15:00 12/15/19 14:57 Magnesium Oxide PO 800 mg TID JASON Administration Metformin HCl 850 mg 12/08/19 21:00 12/15/19 08:39 Glucophage PO 850 mg BID JASON Administration Pantoprazole Sodium 40 mg 12/09/19 09:00 12/15/19 08:39 Protonix PO 40 mg DAILY JASON Administration Sacubitril/Valsartan 1 tab 12/13/19 09:00 12/15/19 08:39 Entresto 24 Mg-26 Mg Tablet PO 1 tab Q12HR JASON Administration Sodium Chloride 10 ml 12/10/19 09:00 12/15/19 08:21 Flush - Normal Saline IVF Not Given Q12HR JASON Spironolactone 25 mg 12/09/19 08:00 12/15/19 08:38 Aldactone PO 25 mg QAM-WM JASON Administration Torsemide 40 mg 12/14/19 09:00 12/15/19 08:39 Demadex PO 40 mg DAILY JASON Administration Zolpidem Tartrate 5 mg 12/11/19 07:52 12/14/19 21:10 Ambien PO 5 mg HSPRN PRN Administration Insomnia - Exam General Appearance: ill appearing Eye: PERRL ENT: normocephalic atraumatic Neck: supple Heart: RRR Respiratory: CTAB Gastrointestinal: soft, normal bowel sounds Neurological: no focal deficits Hosp A/P - Plan Acute on chr sys CHF exacerbation severe ischemic cardiomyopathy CArdio renal syndrome - last echo in 08/2019 - EF of 20% and cardiology note mentioned that he refused AICD evaluation. -being diuresed, coreg, spironolactone NSVT this am Hypomagnesemia -replaced the lytes. Mild Hyponatremia -likely chornic b/l LE cellulitis Luekocytosis, trending down -empiric CTX DM2 -glipizide ad metforrmin - caution w.. cr level Debilitation - PT consulted per Dr. Cowan, --stop milrinone and observe o/n Home hospice full code.
[2019-12-16 05:35] LABS: Anion Gap 14 mmol/L (10-20); BUN (Urea Nitrogen) 30 mg/dL (8.4-25.7); Calc. Creatinine Clearance 119 mL/min (70-130); Calcium 9.6 mg/dL (7.8-10.44); Carbon Dioxide 24 mmol/L (23-31); Chloride 101 mmol/L (98-107); Estimated GFR-MDRD 62; Glucose 103 mg/dL (80-115); Magnesium 1.8 mg/dL (1.6-2.6); Potassium 5.2 mmol/L (3.5-5.1); Sodium 134 mmol/L (136-145)
[2019-12-16 08:20] VITALS: TEMP 97.6
[2019-12-16] MEDS: metFORMIN 850 MG TAB PO SCH (08:21)
[2019-12-16] MEDS: Torsemide 20 MG TAB PO SCH (08:21)
[2019-12-16] MEDS: Carvedilol 6.25 MG TAB PO SCH (08:21)
[2019-12-16] MEDS: Aspirin Chewable 81 MG TAB PO SCH (08:21)
[2019-12-16] MEDS: Spironolactone 25 MG TAB PO SCH (08:21)
[2019-12-16] MEDS: Magnesium Oxide 400 MG TAB PO SCH (08:22)
[2019-12-16] MEDS: Enoxaparin Sodium 40 MG/0.4 ML SYRINGE SC SCH (08:22)
[2019-12-16] MEDS: Amiodarone 200 MG TAB PO SCH (08:24)
[2019-12-16 11:33] VITALS: BP 124/67
--- NOTE | 2019-12-16 17:00 | DIS ---
DATE OF ADMISSION: 12/08/2019 DATE OF DISCHARGE: 12/16/2019 DISCHARGE MEDICATIONS: 1. Entresto 24/26mg twice a day 2. Metformin 850 mg twice a day. 3. Spironolactone 25 mg daily. 4. Torsemide 40 mg in the morning and 20 mg in the afternoon. 5. Lasix 80 mg IV as needed for his edema, this is a PRN medication and not scheduled one. 6. Coreg 6.25 mg twice a day. 7. Amiodarone 400 mg twice a day for 7 days and then 200 mg daily. Lisinopril 2.5 mg has been discontinued. DISCHARGE DIAGNOSES: 1. Acute on chronic systolic congestive heart failure exacerbation. 2. Severe ischemic cardiomyopathy with EF of 20%. 3. Refused for AICD evaluation. 4. Frequent nonsustained ventricular tachycardia. 5. Chronic mild hyponatremia. 6. Bilateral lower extremity cellulitis, treated with antibiotic course. 7. Type 2 diabetes mellitus. 8. Debilitation. 9. Acute on chronic systolic heart failure [place] class 3. 10. Hypertension. 11. Morbid obesity with a BMI of 45. 12. Seizure disorder. PHYSICAL EXAMINATION: VITAL SIGNS: On the day of discharge, temperature 97.6, pulse 59, blood pressure is 124/67, saturating 95% on room air. GENERAL: The patient is seen and he appears well and a discharge plan discussed and he is excited to go home today. CARDIOVASCULAR: Regular rate and rhythm without murmurs, rubs, or gallops. LUNGS: Clear to auscultation bilaterally without wheezing, rales, or rhonchi. ABDOMEN: Soft, nontender, nondistended. Good bowel sounds. EXTREMITIES: Still has pitting edema, but is much improved. I discussed discharge medications with Dr. Rachid Cwoan. HOSPITAL COURSE: This is a 64-year-old male presented with CHF exacerbation with past medical history as listed above in the discharge diagnoses. He had dyspnea on exertion of 3 day duration with a known history of CHF and compliant with medications and diet. He was diuresed briefly and started on milrinone by Dr. Rachid Cowan and monitored. He is refused for AICD evaluation. Medical management maximized. After a trial of milrinone, his symptoms seems to be improved. However, he is at risk for worsening of his ischemic cardiomyopathy with CHF. He is discharged with Entresto, also torsemide morning dose as well as afternoon dose in addition to Lasix 80 IV p.r.n. for worsening of his edema. This has to be reviewed by the hospice nurse before giving IV Lasix. Patient is going home with home hospice. DISCHARGE INSTRUCTIONS: Activity as tolerated. Healthy heart diet. Follow up with primary care physician in 1 week. Follow up with Dr. Rachid Cowan as needed. TIME SPENT: Discharge time took over 35 minutes. Job ID: [id number] MTDD
--- NOTE | 2019-12-16 17:48 | PRG ---
DATE OF SERVICE: 12/16/2019 SERVICE: Advanced Heart Failure Cardiology Consulting Service. SUBJECTIVE: Mr. Fu had a good day. He said he was breathing easy. He was able to walk 100 feet with physical therapy, down and back was about 200 feet. He feels good. He denied any chest pain or chest pressure. He believes the lower extremity edema was also decreased. Apparently, they had a family meeting with palliative care and hospice. They have decided to go home hospice. Right now, he wants to go home today. His milrinone was titrated off last night. He did not have any trouble with Milrinone titrated off. However, as expected, his BNP value did increase significantly after milrinone has been titrated off. REVIEW OF SYSTEMS: GENERAL: There is no fever, chills, or productive cough. HEENT: Did not show any change in vision, hearing, or swallowing. PULMONARY: Please see HPI. CARDIAC: There is no palpitation, chest pain, or syncope. GI: There is no nausea, vomiting, or diarrhea. : He is urinating well. MUSCULOSKELETAL: There are no new complaints. INTEGUMENT: There are no new complaints. NEUROLOGIC: There is no new focal deficits or weakness. PSYCHIATRIC: There is no depression. He wants to go home now. MEDICATIONS: His medications that have cardiac effect include; 1. Amiodarone 400 mg twice a day just to do for 10 g load. 2. Aspirin 81 mg daily. 3. Carvedilol 6.25 mg q.12 hours. 4. Enoxaparin 40 mg daily. 5. Magnesium oxide 800 mg three times a day. 6. Entresto on combination one tablet twice a day. 7. Spironolactone 25 mg daily. 8. Torsemide 40 mg daily. PHYSICAL EXAMINATION: His telemetry was reviewed. He is in sinus rhythm. He has occasional PVC. There is no recurrence of ventricular tachycardia. VITAL SIGNS: His latest vitals include heart rate 66, blood pressure 133/64. GENERAL: He is alert, conversational, sitting comfortably in bed. He is less short of breath than his day of admission. He is essentially the same as yesterday. HEENT: Show EOMI. Oropharynx has really poor dentition. NECK: His JVP about 12 cm with positive hepatojugular reflux. PULMONARY: Good air movement bilaterally. Clear to auscultation bilaterally. CARDIAC: Regular rate and rhythm with normal S1 and S2. There is 2/6 holosystolic murmur at the apex with radiation to the left axilla. There is a slight right ventricular heave. ABDOMEN: Distended, soft, and nontender. Positive bowel sounds. EXTREMITIES: He has lower extremity edema. Skin is quite thickened from the halfway edema, it is worse on the right than left. At left, his edema in his left foot has almost gone, but there is still some slight pitting edema about 0.5 cm about residential up. His calves are now soft, there is still a little bit of firmness to left calf. His right foot still has some pitting edema and there is still about 0.5 or a little bit more pitting edema from his right foot, about two-thirds of the way toward his knee. He believes these are significant improvements, yes, these are significant improvements, however, there is much more to go. His 24-hour I's and O's shows that he is 1405 in and 3050 out. He is negative 1645 out. Again, this is assisted with milrinone for majority of time. LABORATORY VALUES: Sodium 134, potassium 5.2, BUN 30, creatinine 1.18, magnesium 1.8, and his BNP has increased from 560 to 955. This is as expected since Milrinone was titrated off. ASSESSMENT: 64-year-old gentleman resides in [place] [employer] likely stage D and [place] Heart [employer] class 3B heart failure with reduced ejection fraction. It is due to ischemic cardiomyopathy. It has both systolic and diastolic dysfunctions. He has refused automatic implantable cardioverter-defibrillator. He also does not want any advanced care, verbalized many times. His non-compliance and his obesity excludes him for advanced heart failure consideration. Apparently, a hospice meeting took place. It was documented on Tuesday afternoon about 3:00 p.m. The patient is approved for home hospice through [facility]. They have met with the patient and a home care person which is his niece. The current plan is for the patient to go home on hospice through [facility]. With his condition and lack of reasonable way for improvement, then, choosing hospice is very reasonable option. I fully support this; however, we do have to increase his diuresis a bit to compensate for the loss of Milrinone. Please see the following for my recommendations. RECOMMENDATIONS: 1. Continue with carvedilol 6.25 mg twice a day. 2. Continue with Entresto 24/ combination twice a day. 3. Do torsemide 40 mg in the morning and 20 mg in the afternoon. 4. Continue with spironolactone 25 mg daily, this would help to augment; however , you do have to follow labs. If his potassium goes above 5.5 or creatinine goes above 2.5, then spironolactone will need to be stopped. 5. Continue with magnesium oxide 800 mg three times a day. This helped to suppress the ventricular tachycardia. Continue with amiodarone 400 mg twice a day. He needs to complete a 10 g loading. Thus, continue this for one more week at outpatient basis and afterwards just go to amiodarone 200 mg daily. 6. If he is starting to get volume overloaded, then he would need periodic IV Lasix likely 80 mg IV. If that is insufficient, then you would need to augment with metolazone 30 minutes before the Lasix. Right now, he does not need IV Lasix nor metolazone. It has been a pleasure taking care of Mr. Fu. If you have any questions, please give me a call. Since he is going to be on hospice, I will sign off now. Job ID: [id number] [id number]
== END 2019-12-16 11:55 | disposition hospice, home (50) | DRG 291 ==
LOC: 2NO 15:14 → OBSVTOIN 17:22 → T4-B 20:32 → 2NO 20:44 → IMCU/EMU 12-11 18:06 → 2NO 12-13 00:56
PROVIDERS: ADMIT Internal Medicine; ATTEND Internal Medicine
DX: I50.43 Acute on chronic combined systolic (congestive) and diastolic (congestive) heart failure (principal); J96.21 Acute and chronic respiratory failure with hypoxia; Z51.5 Encounter for palliative care; E87.1 Hypo-osmolality and hyponatremia; I47.2 Ventricular tachycardia; L03.116 Cellulitis of left lower limb; L03.115 Cellulitis of right lower limb; N17.9 Acute kidney failure, unspecified; Z68.42 Body mass index [BMI] 45.0-49.9, adult; E11.9 Type 2 diabetes mellitus without complications; I25.10 Atherosclerotic heart disease of native coronary artery without angina pectoris; F41.9 Anxiety disorder, unspecified; F25.9 Schizoaffective disorder, unspecified; I25.5 Ischemic cardiomyopathy; I08.3 Combined rheumatic disorders of mitral, aortic and tricuspid valves; E83.42 Hypomagnesemia; E87.6 Hypokalemia; K80.20 Calculus of gallbladder without cholecystitis without obstruction; E66.01 Morbid (severe) obesity due to excess calories; G40.909 Epilepsy, unspecified, not intractable, without status epilepticus; I10 Essential (primary) hypertension; Z90.49 Acquired absence of other specified parts of digestive tract; Z79.82 Long term (current) use of aspirin; Z95.1 Presence of aortocoronary bypass graft; I25.2 Old myocardial infarction; Z87.891 Personal history of nicotine dependence; Z91.19 Patient's noncompliance with other medical treatment and regimen; Z28.21 Immunization not carried out because of patient refusal; Z79.899 Other long term (current) drug therapy; Z79.84 Long term (current) use of oral hypoglycemic drugs; Z53.29 Procedure and treatment not carried out because of patient's decision for other reasons; I50.84 End stage heart failure
CPT/HCPCS: 36415; 36416; 71045; 80048; 80053; 83735; 83880; 84443; 85025; 85610; 85730; J0696; J1650; J1940; J2260; J3475; J3490

== ENCOUNTER 2021-05-12 00:26 | Inpatient (IN) | payer MEDICARE ==
[2021-05-12] MEDS ORDERED: Cefepime 2 GM VIAL ONE (00:53)
[2021-05-12] MEDS ORDERED: cloNIDine 0.1 MG TAB ONE (00:53)
[2021-05-12 01:47] LABS: INR-International Normal Ratio 1.6; Prothrombin Time 19.5 sec (12.0-14.7)
[2021-05-12 01:48] LABS: PTT 39.3 sec (22.9-36.1)
[2021-05-12 01:55] LABS: ALT (SGPT) 33 U/L (8-55); AST (SGOT) 40 U/L (5-34); Albumin 3.7 g/dL (3.4-4.8); Alkaline Phosphatase 74 U/L (40-110); Anion Gap 27 mmol/L (10-20); BUN (Urea Nitrogen) 108 mg/dL (8.4-25.7); Bilirubin, Total 1.2 mg/dL (0.2-1.2); Calc. Creatinine Clearance 0 mL/min (70-130); Calcium 9.3 mg/dL (7.8-10.44); Carbon Dioxide 18 mmol/L (23-31); Chloride 88 mmol/L (98-107); Globulin 4.1 g/dL (2.4-3.5); Glucose 99 mg/dL (80-115); Potassium 3.5 mmol/L (3.5-5.1); Protein, Total 7.8 g/dL (5.8-8.1); Sodium 129 mmol/L (136-145)
[2021-05-12 01:57] LABS: Bacteria/HPF None Seen HPF (None Seen); Bilirubin Negative (Negative); Blood, Urine Negative (Negative); Clarity Clear (Clear); Glucose, Urine (Dipstick) Normal (Negative); Ketone, Urine Negative (Negative); Leukocyte Negative Leu/uL (Negative); Nitrite Negative (Negative); Protein, Urine (Dipstick) 30 mg/dL (Neg-Trace); Specific Gravity, Urine 1.014 (1.002-1.036); Squamous Epithelial 0-3 HPF (0-3); WBC/HPF 0-3 HPF (0-3)
[2021-05-12 01:58] LABS: Hemoglobin 10.2 g/dL (14.0-18.0); Mean Corpuscular HGB CONC 32.1 g/dL (32.0-36.0); Mean Corpuscular Hemoglobin 29.4 pg (27.0-31.0); Mean Corpuscular Volume 91.4 fL (78.0-98.0); Mean Platelet Volume 8.4 fL (7.4-10.4); Platelet Count 212 thou/uL (130-400); RBC Distribution Width 15.6 % (11.5-14.5); Red Blood Cell (RBC) Count 3.47 mill/uL (4.70-6.10); White Blood Cell (WBC) Count 17.9 thou/uL (4.8-10.8)
[2021-05-12 02:24] LABS: Band 18 % (5-11); Lymphocytes 6 % (21-51); MDiff Complete? YES; Monocytes 2 % (0-10); Neutrophil 74 % (42-75)
[2021-05-12 02:54] LABS: CKMB 2.6 ng/mL (0-6.6)
[2021-05-12] MEDS ORDERED: Vancomycin 1 GM/200 ML BAG ONE (03:11)
[2021-05-12] MEDS ORDERED: Norepinephrine 8 MG/0.9% NS 250 ML ONE (03:11)
[2021-05-12] MEDS ORDERED: Acetaminophen 650 MG Suppository PR PRN (04:13)
[2021-05-12] MEDS ORDERED: HumaLOG 300 UNITS/3 ML VIAL SC PRN (04:19)
[2021-05-12] MEDS ORDERED: Dextrose 5% in Water 1,000 ML IV PRN (04:19)
[2021-05-12] MEDS ORDERED: Dextrose 50% Abboject 50 ML SYRINGE SLOW IVP PRN (04:19)
[2021-05-12] MEDS ORDERED: Norepinephrine 8 MG/0.9% NS 250 ML IVPB SCH (04:30)
[2021-05-12 05:06] LABS: Troponin I 0.139 ng/mL (< 0.028)
[2021-05-12 06:12] LABS: SARS-CoV-2 NAA Rapid Test Not Detected (NotDetected)
[2021-05-12 08:10] LABS: Troponin I 0.277 ng/mL (< 0.028)
[2021-05-12 08:11] LABS: Lactic Acid 2.1 mmol/L (0.5-2.2)
[2021-05-12] MEDS ORDERED: VANCOMYCIN IVPB PRN (08:21)
[2021-05-12] MEDS ORDERED: Cefepime 2 GM in Sodium Chloride 0.9% 100 ML IVPB SCH (09:00)
[2021-05-12] MEDS: Amiodarone 200 MG TAB PO SCH (10:33)
[2021-05-12] MEDS: Heparin 5,000 UNITS/ML VIAL SC SCH ×3 (10:33→20:34)
[2021-05-12] MEDS ORDERED: DOPamine 400 MG/D5W 250 ML 250 ML IVPB SCH (15:00)
[2021-05-12] MEDS ORDERED: VANCOMYCIN 1.25 GM/250 ML BAG 1.25 GM in Premix Bag 1 BAG IVPB SCH (15:00)
[2021-05-12] MEDS: DOBUTamine 500 mg/250 ml 250 ML IVPB SCH (20:06)
[2021-05-12] MEDS: Cefepime 1 GM in Sodium Chloride 0.9% 100 ML IVPB SCH (20:35)
[2021-05-12] MEDS: Ondansetron PF 4 MG/2 ML Vial IVP PRN (23:28)
[2021-05-13] MEDS ORDERED: Cefepime 1 GM in Sodium Chloride 0.9% 100 ML IVPB SCH (01:00)
[2021-05-13 04:23] LABS: #Basophils 0.1 thou/uL (0.0-0.2); #Lymphocytes 0.6 thou/uL (1.20-3.40); #Monocytes 0.8 thou/uL (0.11-0.59); #Neutrophils 12.8 thou/uL (1.40-6.50); %Basophils 0.7 % (0.0-1.0); %Eosinophils 0.1 % (0.0-10.0); %Monocytes 5.6 % (0.0-10.0); %Neutrophils 89.5 % (42.0-75.0); Hemoglobin 8.6 g/dL (14.0-18.0); Mean Corpuscular HGB CONC 34.2 g/dL (32.0-36.0); Mean Corpuscular Hemoglobin 31.3 pg (27.0-31.0); Mean Corpuscular Volume 91.5 fL (78.0-98.0); Mean Platelet Volume 8.5 fL (7.4-10.4); Platelet Count 150 thou/uL (130-400); RBC Distribution Width 15.3 % (11.5-14.5); Red Blood Cell (RBC) Count 2.75 mill/uL (4.70-6.10); White Blood Cell (WBC) Count 14.3 thou/uL (4.8-10.8)
[2021-05-13 04:42] LABS: Vancomycin, Random 8.7 ug/mL (See Comment)
[2021-05-13 04:45] LABS: Anion Gap 13 mmol/L (10-20); BUN (Urea Nitrogen) 109 mg/dL (8.4-25.7); Calc. Creatinine Clearance 30 mL/min (70-130); Calcium 8.4 mg/dL (7.8-10.44); Carbon Dioxide 27 mmol/L (23-31); Chloride 92 mmol/L (98-107); Glucose 65 mg/dL (80-115); Potassium 3.1 mmol/L (3.5-5.1); Sodium 129 mmol/L (136-145)
[2021-05-13] MEDS ORDERED: VANCOMYCIN 1.25 GM/250 ML BAG 1.25 GM in Premix Bag 1 BAG IVPB SCH (05:00)
[2021-05-13] MEDS ORDERED: Vancomycin 1.5 GRAM/300 ML BAG 1.5 GM in Premix Bag 1 BAG IVPB SCH (05:00)
[2021-05-13] MEDS: Heparin 5,000 UNITS/ML VIAL SC SCH (08:46)
[2021-05-13] MEDS: Amiodarone 200 MG TAB PO SCH (08:46)
[2021-05-13] MEDS ORDERED: Communication Order-Pharmacy FS ONE ×2 (09:54→09:55)
[2021-05-13 13:18] LABS: Hemoglobin 8.4 g/dL (14.0-18.0); Platelet Count 151 thou/uL (130-400)
[2021-05-13] MEDS: Cefepime 1 GM in Sodium Chloride 0.9% 100 ML IVPB SCH (20:59)
[2021-05-13] MEDS: Enoxaparin Sodium 120 MG/0.8 ML SYRINGE SC SCH (21:00)
[2021-05-14] MEDS: DOBUTamine 500 mg/250 ml 250 ML IVPB SCH (01:46)
[2021-05-14] MEDS: HumaLOG 300 UNITS/3 ML VIAL SC PRN (05:44)
[2021-05-14 05:48] LABS: #Eosinphils 0.1 thou/uL (0.0-0.7); #Lymphocytes 0.6 thou/uL (1.20-3.40); #Neutrophils 13.2 thou/uL (1.40-6.50); %Eosinophils 0.4 % (0.0-10.0); %Lymphocytes 3.9 % (21.0-51.0); %Monocytes 6.7 % (0.0-10.0); Hemoglobin 8.7 g/dL (14.0-18.0); Mean Corpuscular HGB CONC 31.6 g/dL (32.0-36.0); Mean Corpuscular Hemoglobin 29.1 pg (27.0-31.0); Mean Corpuscular Volume 92.1 fL (78.0-98.0); Mean Platelet Volume 8.2 fL (7.4-10.4); Platelet Count 146 thou/uL (130-400); RBC Distribution Width 15.4 % (11.5-14.5); Red Blood Cell (RBC) Count 2.99 mill/uL (4.70-6.10); White Blood Cell (WBC) Count 14.9 thou/uL (4.8-10.8)
[2021-05-14 06:05] LABS: Vancomycin, Random 16.4 ug/mL (See Comment)
[2021-05-14 06:08] LABS: Anion Gap 18 mmol/L (10-20); BUN (Urea Nitrogen) 112 mg/dL (8.4-25.7); Calc. Creatinine Clearance 30 mL/min (70-130); Calcium 8.3 mg/dL (7.8-10.44); Carbon Dioxide 21 mmol/L (23-31); Chloride 89 mmol/L (98-107); Glucose 193 mg/dL (80-115); Iron 12 ug/dL (65-175); Iron Binding Capacity, Total 191 mcg/dL (261-462); Potassium 3.4 mmol/L (3.5-5.1); Sodium 125 mmol/L (136-145)
[2021-05-14 06:34] LABS: Ferritin 830.63 ng/mL (22-322)
[2021-05-14] MEDS ORDERED: Vancomycin HCl 750 MG in Sodium Chloride 0.9% 250 ML 250 ML IVPB SCH (07:00)
[2021-05-14] MEDS: Amiodarone 200 MG TAB PO SCH (08:49)
[2021-05-14] MEDS: Ondansetron ODT 4 MG TAB PO PRN (08:50)
[2021-05-14] MEDS: Ondansetron PF 4 MG/2 ML Vial IVP PRN (17:30)
[2021-05-14] MEDS: cefTRIAXone\\ROCEPHIN 2 GM in Sodium Chloride 0.9% 100 ML IVPB SCH (17:57)
[2021-05-14] MEDS: Famotidine 20 MG TAB PO SCH (21:15)
[2021-05-14] MEDS: Enoxaparin Sodium 120 MG/0.8 ML SYRINGE SC SCH (21:15)
[2021-05-15] MEDS: DOBUTamine 500 mg/250 ml 250 ML IVPB SCH (03:22)
[2021-05-15 04:39] LABS: #Basophils 0.1 thou/uL (0.0-0.2); #Eosinphils 0.1 thou/uL (0.0-0.7); #Lymphocytes 0.4 thou/uL (1.20-3.40); #Neutrophils 11.9 thou/uL (1.40-6.50); %Eosinophils 0.5 % (0.0-10.0); %Lymphocytes 3.2 % (21.0-51.0); %Monocytes 7.3 % (0.0-10.0); Hemoglobin 8.9 g/dL (14.0-18.0); Mean Corpuscular HGB CONC 32.8 g/dL (32.0-36.0); Mean Corpuscular Hemoglobin 29.7 pg (27.0-31.0); Mean Corpuscular Volume 90.3 fL (78.0-98.0); Mean Platelet Volume 8.6 fL (7.4-10.4); Platelet Count 139 thou/uL (130-400); RBC Distribution Width 15.4 % (11.5-14.5); White Blood Cell (WBC) Count 13.6 thou/uL (4.8-10.8)
[2021-05-15 04:52] LABS: Anion Gap 19 mmol/L (10-20); BUN (Urea Nitrogen) 113 mg/dL (8.4-25.7); Calc. Creatinine Clearance 32 mL/min (70-130); Calcium 8.3 mg/dL (7.8-10.44); Carbon Dioxide 20 mmol/L (23-31); Chloride 88 mmol/L (98-107); Glucose 100 mg/dL (80-115); Potassium 3.5 mmol/L (3.5-5.1); Sodium 123 mmol/L (136-145)
[2021-05-15] MEDS: Ferrous Sulfate 325 MG TAB PO SCH (08:52)
[2021-05-15] MEDS: Amiodarone 200 MG TAB PO SCH (08:52)
[2021-05-15] MEDS: Furosemide 40 MG/4 ML VIAL SLOW IVP SCH (09:18)
[2021-05-15] MEDS: cefTRIAXone\\ROCEPHIN 2 GM in Sodium Chloride 0.9% 100 ML IVPB SCH (18:06)
[2021-05-15] MEDS: Famotidine 20 MG TAB PO SCH (20:49)
[2021-05-15] MEDS: Enoxaparin Sodium 120 MG/0.8 ML SYRINGE SC SCH (20:49)
[2021-05-15] MEDS: Acetaminophen 325 MG TAB PO PRN (20:49)
[2021-05-16 04:16] LABS: Hemoglobin 8.6 g/dL (14.0-18.0); Platelet Count 135 thou/uL (130-400)
[2021-05-16 04:36] LABS: Anion Gap 17 mmol/L (10-20); BUN (Urea Nitrogen) 110 mg/dL (8.4-25.7); Calc. Creatinine Clearance 33 mL/min (70-130); Calcium 8.2 mg/dL (7.8-10.44); Carbon Dioxide 20 mmol/L (23-31); Chloride 86 mmol/L (98-107); Glucose 103 mg/dL (80-115); Potassium 3.3 mmol/L (3.5-5.1); Sodium 120 mmol/L (136-145)
[2021-05-16] MEDS ORDERED: Tolvaptan 15 MG TAB PO SCH (09:00)
[2021-05-16] MEDS ORDERED: TOLVAPTAN 30 MG TAB PO SCH (09:00)
[2021-05-16] MEDS: Ferrous Sulfate 325 MG TAB PO SCH (09:51)
[2021-05-16] MEDS: Amiodarone 200 MG TAB PO SCH (09:51)
[2021-05-16] MEDS: Furosemide 40 MG/4 ML VIAL SLOW IVP SCH (09:53)
[2021-05-16] MEDS ORDERED: Potassium Chloride 20 MEQ TAB PO SCH (10:30)
[2021-05-16] MEDS: Acetaminophen 325 MG TAB PO PRN ×2 (10:51→21:25)
[2021-05-16] MEDS: Ondansetron ODT 4 MG TAB PO PRN (12:37)
[2021-05-16] MEDS: cefTRIAXone\\ROCEPHIN 2 GM in Sodium Chloride 0.9% 100 ML IVPB SCH (17:22)
[2021-05-16] MEDS: Enoxaparin Sodium 120 MG/0.8 ML SYRINGE SC SCH (21:25)
[2021-05-16] MEDS: Famotidine 20 MG TAB PO SCH (21:25)
[2021-05-17 04:59] LABS: Band 5 % (5-11); Hemoglobin 8.8 g/dL (14.0-18.0); Hypochromia SLIGHT = 6-15 cells (100X) (0-5/hpf); MDiff Complete? YES; Mean Corpuscular HGB CONC 33.6 g/dL (32.0-36.0); Mean Corpuscular Hemoglobin 30.2 pg (27.0-31.0); Mean Corpuscular Volume 89.8 fL (78.0-98.0); Mean Platelet Volume 8.1 fL (7.4-10.4); Monocytes 21 % (0-10); Neutrophil 74 % (42-75); Platelet Count 148 thou/uL (130-400); Platelet Morphology Comment Appears Adequate; RBC Distribution Width 15.5 % (11.5-14.5); Red Blood Cell (RBC) Count 2.93 mill/uL (4.70-6.10); White Blood Cell (WBC) Count 10.8 thou/uL (4.8-10.8)
[2021-05-17 05:08] LABS: Anion Gap 16 mmol/L (10-20); BUN (Urea Nitrogen) 105 mg/dL (8.4-25.7); Calc. Creatinine Clearance 34 mL/min (70-130); Calcium 8.7 mg/dL (7.8-10.44); Carbon Dioxide 22 mmol/L (23-31); Chloride 90 mmol/L (98-107); Glucose 111 mg/dL (80-115); Potassium 3.4 mmol/L (3.5-5.1); Sodium 125 mmol/L (136-145)
[2021-05-17] MEDS: Amiodarone 200 MG TAB PO SCH (10:11)
[2021-05-17] MEDS: hydrALAZINE 25 MG TAB PO SCH ×3 (10:11→20:46)
[2021-05-17] MEDS: Ferrous Sulfate 325 MG TAB PO SCH (10:11)
[2021-05-17] MEDS: Furosemide 40 MG/4 ML VIAL SLOW IVP SCH (10:12)
[2021-05-17] MEDS: Ondansetron PF 4 MG/2 ML Vial IVP PRN (10:17)
[2021-05-17] MEDS: HumaLOG 300 UNITS/3 ML VIAL SC PRN (11:48)
[2021-05-17] MEDS: cefTRIAXone\\ROCEPHIN 2 GM in Sodium Chloride 0.9% 100 ML IVPB SCH (16:48)
[2021-05-17] MEDS: DOBUTamine 500 mg/250 ml 250 ML IVPB SCH (18:51)
[2021-05-17] MEDS: Enoxaparin Sodium 120 MG/0.8 ML SYRINGE SC SCH (20:45)
[2021-05-17] MEDS: Famotidine 20 MG TAB PO SCH (20:46)
[2021-05-17] MEDS: Acetaminophen 325 MG TAB PO PRN (20:46)
[2021-05-18 05:07] LABS: Anion Gap 14 mmol/L (10-20); BUN (Urea Nitrogen) 95 mg/dL (8.4-25.7); Calc. Creatinine Clearance 38 mL/min (70-130); Calcium 8.9 mg/dL (7.8-10.44); Carbon Dioxide 24 mmol/L (23-31); Chloride 92 mmol/L (98-107); Glucose 116 mg/dL (80-115); Potassium 3.2 mmol/L (3.5-5.1); Sodium 127 mmol/L (136-145)
[2021-05-18 05:09] LABS: Band 9 % (5-11); Lymphocytes 6 % (21-51); MDiff Complete? YES; Monocytes 4 % (0-10); Myelocyte 3 % (0-0); Neutrophil 78 % (42-75); Nucleated RBC 1 % (0); Platelet Morphology Comment Appears Adequate; Polychromasia MODERATE = 3-4 cells (100X) (0-2/hpf); Target Cells MODERATE= 6-15 cells (100X) (0-1/hpf)
[2021-05-18 05:10] LABS: Mean Corpuscular Hemoglobin 29.9 pg (27.0-31.0); Mean Corpuscular Volume 90.7 fL (78.0-98.0); Mean Platelet Volume 8.2 fL (7.4-10.4); Platelet Count 150 thou/uL (130-400); RBC Distribution Width 15.9 % (11.5-14.5); White Blood Cell (WBC) Count 10.7 thou/uL (4.8-10.8)
[2021-05-18] MEDS ORDERED: Potassium Chloride 20 MEQ TAB PO SCH (08:30)
[2021-05-18] MEDS ORDERED: TOLVAPTAN 30 MG TAB PO SCH (09:00)
[2021-05-18] MEDS ORDERED: Tolvaptan 15 MG TAB PO SCH ×2 (09:00)
[2021-05-18] MEDS ORDERED: Nitroglycerin 0.4 MG TAB (25 Tab Bottle) ONE (09:40)
[2021-05-18] MEDS: TOLVAPTAN 30 MG TAB PO SCH (10:36)
[2021-05-18] MEDS: Ferrous Sulfate 325 MG TAB PO SCH (10:36)
[2021-05-18] MEDS: Amiodarone 200 MG TAB PO SCH (10:36)
[2021-05-18] MEDS: hydrALAZINE 25 MG TAB PO SCH ×4 (10:45→21:47)
[2021-05-18] MEDS: Furosemide 40 MG/4 ML VIAL SLOW IVP SCH (14:29)
[2021-05-18] MEDS: DOBUTamine 500 mg/250 ml 250 ML IVPB SCH (14:48)
[2021-05-18] MEDS: cefTRIAXone\\ROCEPHIN 2 GM in Sodium Chloride 0.9% 100 ML IVPB SCH (17:24)
[2021-05-18] MEDS: Famotidine 20 MG TAB PO SCH (21:44)
[2021-05-18] MEDS: Enoxaparin Sodium 120 MG/0.8 ML SYRINGE SC SCH (21:44)
[2021-05-19 05:16] LABS: #Basophils 0.1 thou/uL (0.0-0.2); #Lymphocytes 0.7 thou/uL (1.20-3.40); #Monocytes 1.1 thou/uL (0.11-0.59); #Neutrophils 9.6 thou/uL (1.40-6.50); %Basophils 0.6 % (0.0-1.0); %Eosinophils 0.4 % (0.0-10.0); %Lymphocytes 6.5 % (21.0-51.0); %Monocytes 9.5 % (0.0-10.0); %Neutrophils 83.1 % (42.0-75.0); Hemoglobin 8.8 g/dL (14.0-18.0); Mean Corpuscular HGB CONC 32.2 g/dL (32.0-36.0); Mean Corpuscular Hemoglobin 29.9 pg (27.0-31.0); Mean Corpuscular Volume 92.8 fL (78.0-98.0); Platelet Count 155 thou/uL (130-400); RBC Distribution Width 16.6 % (11.5-14.5); Red Blood Cell (RBC) Count 2.94 mill/uL (4.70-6.10); White Blood Cell (WBC) Count 11.5 thou/uL (4.8-10.8)
[2021-05-19 05:17] LABS: Hemoglobin 9.1 g/dL (14.0-18.0); Platelet Count 153 thou/uL (130-400)
[2021-05-19] MEDS: Furosemide 40 MG/4 ML VIAL SLOW IVP SCH ×2 (05:21→15:01)
[2021-05-19 05:37] LABS: Anion Gap 15 mmol/L (10-20); BUN (Urea Nitrogen) 93 mg/dL (8.4-25.7); Calc. Creatinine Clearance 38 mL/min (70-130); Calcium 8.7 mg/dL (7.8-10.44); Carbon Dioxide 23 mmol/L (23-31); Chloride 91 mmol/L (98-107); Glucose 117 mg/dL (80-115); Potassium 3.4 mmol/L (3.5-5.1); Sodium 126 mmol/L (136-145)
[2021-05-19] MEDS ORDERED: Potassium Chloride 20 MEQ TAB PO SCH (08:15)
[2021-05-19] MEDS: hydrALAZINE 25 MG TAB PO SCH ×3 (08:17→21:48)
[2021-05-19] MEDS: Ferrous Sulfate 325 MG TAB PO SCH (08:18)
[2021-05-19] MEDS: Amiodarone 200 MG TAB PO SCH (08:18)
[2021-05-19] MEDS: TOLVAPTAN 30 MG TAB PO SCH (08:18)
[2021-05-19] MEDS: DOBUTamine 500 mg/250 ml 250 ML IVPB SCH ×2 (08:20→23:41)
[2021-05-19] MEDS: cefTRIAXone\\ROCEPHIN 2 GM in Sodium Chloride 0.9% 100 ML IVPB SCH (17:36)
[2021-05-19] MEDS: Enoxaparin Sodium 120 MG/0.8 ML SYRINGE SC SCH (21:49)
[2021-05-19] MEDS: Famotidine 20 MG TAB PO SCH (21:49)
[2021-05-20 04:56] LABS: #Basophils 0.1 thou/uL (0.0-0.2); #Eosinphils 0.1 thou/uL (0.0-0.7); #Lymphocytes 0.6 thou/uL (1.20-3.40); #Neutrophils 9.4 thou/uL (1.40-6.50); %Basophils 0.5 % (0.0-1.0); %Eosinophils 1.2 % (0.0-10.0); %Lymphocytes 5.6 % (21.0-51.0); %Monocytes 8.7 % (0.0-10.0); Hemoglobin 8.9 g/dL (14.0-18.0); Mean Corpuscular HGB CONC 33.1 g/dL (32.0-36.0); Mean Corpuscular Hemoglobin 30.3 pg (27.0-31.0); Mean Corpuscular Volume 91.4 fL (78.0-98.0); Mean Platelet Volume 8.4 fL (7.4-10.4); Platelet Count 154 thou/uL (130-400); RBC Distribution Width 17.2 % (11.5-14.5); Red Blood Cell (RBC) Count 2.93 mill/uL (4.70-6.10); White Blood Cell (WBC) Count 11.1 thou/uL (4.8-10.8)
[2021-05-20 05:16] LABS: Anion Gap 16 mmol/L (10-20); BUN (Urea Nitrogen) 95 mg/dL (8.4-25.7); Calc. Creatinine Clearance 37 mL/min (70-130); Calcium 8.8 mg/dL (7.8-10.44); Carbon Dioxide 24 mmol/L (23-31); Chloride 92 mmol/L (98-107); Glucose 156 mg/dL (80-115); Potassium 3.6 mmol/L (3.5-5.1); Sodium 128 mmol/L (136-145)
[2021-05-20] MEDS: Furosemide 40 MG/4 ML VIAL SLOW IVP SCH ×2 (05:52→14:49)
[2021-05-20] MEDS: Ferrous Sulfate 325 MG TAB PO SCH (09:23)
[2021-05-20] MEDS: hydrALAZINE 25 MG TAB PO SCH ×3 (09:23→21:58)
[2021-05-20] MEDS: Amiodarone 200 MG TAB PO SCH (09:24)
[2021-05-20] MEDS: cefTRIAXone\\ROCEPHIN 2 GM in Sodium Chloride 0.9% 100 ML IVPB SCH (17:03)
[2021-05-20] MEDS: DOBUTamine 500 mg/250 ml 250 ML IVPB SCH (17:12)
[2021-05-20 21:13] LABS: SARS-CoV-2 PCR by NAA Not Detected (NotDetected)
[2021-05-20] MEDS: Enoxaparin Sodium 120 MG/0.8 ML SYRINGE SC SCH (21:56)
[2021-05-20] MEDS: Famotidine 20 MG TAB PO SCH (21:58)
[2021-05-20] MEDS ORDERED: hydrALAZINE 10 MG TAB PO SCH (22:00)
[2021-05-21 04:40] LABS: #Eosinphils 0.1 thou/uL (0.0-0.7); #Lymphocytes 0.6 thou/uL (1.20-3.40); #Monocytes 0.8 thou/uL (0.11-0.59); #Neutrophils 8.2 thou/uL (1.40-6.50); %Basophils 0.1 % (0.0-1.0); %Eosinophils 1.3 % (0.0-10.0); %Lymphocytes 6.3 % (21.0-51.0); %Monocytes 7.9 % (0.0-10.0); %Neutrophils 84.4 % (42.0-75.0); Hemoglobin 9.3 g/dL (14.0-18.0); Mean Corpuscular HGB CONC 33.4 g/dL (32.0-36.0); Mean Corpuscular Hemoglobin 30.8 pg (27.0-31.0); Mean Corpuscular Volume 92.1 fL (78.0-98.0); Platelet Count 158 thou/uL (130-400); RBC Distribution Width 17.5 % (11.5-14.5); Red Blood Cell (RBC) Count 3.03 mill/uL (4.70-6.10); White Blood Cell (WBC) Count 9.7 thou/uL (4.8-10.8)
[2021-05-21 05:00] LABS: Anion Gap 15 mmol/L (10-20); BUN (Urea Nitrogen) 89 mg/dL (8.4-25.7); Calc. Creatinine Clearance 40 mL/min (70-130); Calcium 9.1 mg/dL (7.8-10.44); Carbon Dioxide 26 mmol/L (23-31); Chloride 92 mmol/L (98-107); Glucose 125 mg/dL (80-115); Potassium 3.3 mmol/L (3.5-5.1); Sodium 130 mmol/L (136-145)
[2021-05-21] MEDS: Furosemide 40 MG/4 ML VIAL SLOW IVP SCH ×2 (06:01→17:40)
[2021-05-21] MEDS ORDERED: Potassium Chloride 20 MEQ TAB PO SCH (09:00)
[2021-05-21] MEDS: Ferrous Sulfate 325 MG TAB PO SCH (09:44)
[2021-05-21] MEDS: Amiodarone 200 MG TAB PO SCH (09:44)
[2021-05-21] MEDS: hydrALAZINE 10 MG TAB PO SCH ×3 (09:51→21:23)
[2021-05-21] MEDS ORDERED: Furosemide 40 MG/4 ML VIAL ONE (16:49)
[2021-05-21] MEDS: cefTRIAXone\\ROCEPHIN 2 GM in Sodium Chloride 0.9% 100 ML IVPB SCH (16:58)
[2021-05-21] MEDS ORDERED: Furosemide 20 MG/2 ML VIAL SLOW IVP SCH (18:00)
[2021-05-21] MEDS: Apixaban 5 MG TAB PO SCH (21:22)
[2021-05-21] MEDS: Famotidine 20 MG TAB PO SCH (21:22)
[2021-05-22 05:52] LABS: #Eosinphils 0.1 thou/uL (0.0-0.7); #Lymphocytes 0.7 thou/uL (1.20-3.40); #Neutrophils 7.6 thou/uL (1.40-6.50); %Basophils 0.1 % (0.0-1.0); %Eosinophils 0.7 % (0.0-10.0); %Lymphocytes 7.8 % (21.0-51.0); %Monocytes 10.6 % (0.0-10.0); %Neutrophils 80.8 % (42.0-75.0); Hemoglobin 10.1 g/dL (14.0-18.0); Mean Corpuscular HGB CONC 32.3 g/dL (32.0-36.0); Mean Corpuscular Hemoglobin 30.2 pg (27.0-31.0); Mean Corpuscular Volume 93.5 fL (78.0-98.0); Mean Platelet Volume 8.4 fL (7.4-10.4); Platelet Count 164 thou/uL (130-400); RBC Distribution Width 17.7 % (11.5-14.5); Red Blood Cell (RBC) Count 3.35 mill/uL (4.70-6.10); White Blood Cell (WBC) Count 9.4 thou/uL (4.8-10.8)
[2021-05-22 06:05] LABS: Carbon Dioxide 22 mmol/L (23-31); Glucose 139 mg/dL (80-115)
[2021-05-22] MEDS ORDERED: Furosemide 20 MG/2 ML VIAL SLOW IVP SCH (06:15)
[2021-05-22] MEDS: Furosemide 40 MG/4 ML VIAL SLOW IVP SCH ×2 (06:26→14:25)
[2021-05-22 07:05] LABS: Calcium 9.2 mg/dL (7.8-10.44); Chloride 96 mmol/L (98-107); Sodium 130 mmol/L (136-145)
[2021-05-22 07:09] LABS: Calc. Creatinine Clearance 39 mL/min (70-130)
[2021-05-22 07:10] LABS: BUN (Urea Nitrogen) 96 mg/dL (8.4-25.7)
[2021-05-22 08:01] LABS: Anion Gap 16 mmol/L (10-20)
[2021-05-22] MEDS: Ferrous Sulfate 325 MG TAB PO SCH (09:39)
[2021-05-22] MEDS: hydrALAZINE 10 MG TAB PO SCH (09:39)
[2021-05-22] MEDS: Apixaban 5 MG TAB PO SCH ×2 (09:40→21:00)
[2021-05-22] MEDS: Amiodarone 200 MG TAB PO SCH (09:40)
[2021-05-22] MEDS: Potassium Chloride 20 MEQ TAB PO SCH (09:40)
[2021-05-22] MEDS: cefTRIAXone\\ROCEPHIN 2 GM in Sodium Chloride 0.9% 100 ML IVPB SCH (16:56)
[2021-05-22] MEDS: Famotidine 20 MG TAB PO SCH (21:00)
[2021-05-23] MEDS: Furosemide 40 MG/4 ML VIAL SLOW IVP SCH ×2 (05:59→14:02)
[2021-05-23] MEDS ORDERED: Furosemide 20 MG/2 ML VIAL SLOW IVP SCH (06:00)
[2021-05-23 08:10] LABS: #Eosinphils 0.1 thou/uL (0.0-0.7); #Lymphocytes 0.8 thou/uL (1.20-3.40); #Monocytes 0.9 thou/uL (0.11-0.59); #Neutrophils 6.5 thou/uL (1.40-6.50); %Basophils 0.1 % (0.0-1.0); %Eosinophils 1.2 % (0.0-10.0); %Lymphocytes 9.7 % (21.0-51.0); %Monocytes 11.1 % (0.0-10.0); %Neutrophils 77.9 % (42.0-75.0); Hemoglobin 10.4 g/dL (14.0-18.0); Mean Corpuscular HGB CONC 31.5 g/dL (32.0-36.0); Mean Corpuscular Hemoglobin 29.6 pg (27.0-31.0); Mean Corpuscular Volume 93.9 fL (78.0-98.0); Mean Platelet Volume 8.3 fL (7.4-10.4); Platelet Count 189 thou/uL (130-400); RBC Distribution Width 17.7 % (11.5-14.5); Red Blood Cell (RBC) Count 3.52 mill/uL (4.70-6.10); White Blood Cell (WBC) Count 8.3 thou/uL (4.8-10.8)
[2021-05-23] MEDS: Ferrous Sulfate 325 MG TAB PO SCH (08:17)
[2021-05-23] MEDS: Potassium Chloride 20 MEQ TAB PO SCH (08:17)
[2021-05-23] MEDS: Amiodarone 200 MG TAB PO SCH (08:18)
[2021-05-23] MEDS: Apixaban 5 MG TAB PO SCH ×2 (08:18→21:26)
[2021-05-23 08:26] LABS: Anion Gap 18 mmol/L (10-20); BUN (Urea Nitrogen) 90 mg/dL (8.4-25.7); Calc. Creatinine Clearance 38 mL/min (70-130); Carbon Dioxide 21 mmol/L (23-31); Chloride 98 mmol/L (98-107); Glucose 131 mg/dL (80-115); Potassium 3.8 mmol/L (3.5-5.1); Sodium 133 mmol/L (136-145)
[2021-05-23] MEDS: cefTRIAXone\\ROCEPHIN 2 GM in Sodium Chloride 0.9% 100 ML IVPB SCH (17:33)
[2021-05-23] MEDS: Famotidine 20 MG TAB PO SCH (21:26)
[2021-05-24 05:05] LABS: #Eosinphils 0.1 thou/uL (0.0-0.7); #Monocytes 1.1 thou/uL (0.11-0.59); #Neutrophils 6.8 thou/uL (1.40-6.50); %Basophils 0.4 % (0.0-1.0); %Eosinophils 1.1 % (0.0-10.0); %Lymphocytes 10.6 % (21.0-51.0); %Monocytes 12.4 % (0.0-10.0); %Neutrophils 75.5 % (42.0-75.0); Hemoglobin 9.8 g/dL (14.0-18.0); Mean Corpuscular HGB CONC 32.4 g/dL (32.0-36.0); Mean Corpuscular Hemoglobin 30.2 pg (27.0-31.0); Mean Corpuscular Volume 93.3 fL (78.0-98.0); Platelet Count 204 thou/uL (130-400); RBC Distribution Width 17.5 % (11.5-14.5); Red Blood Cell (RBC) Count 3.26 mill/uL (4.70-6.10)
[2021-05-24 05:21] LABS: Anion Gap 16 mmol/L (10-20); BUN (Urea Nitrogen) 96 mg/dL (8.4-25.7); Calc. Creatinine Clearance 39 mL/min (70-130); Calcium 9.2 mg/dL (7.8-10.44); Carbon Dioxide 24 mmol/L (23-31); Chloride 98 mmol/L (98-107); Glucose 138 mg/dL (80-115); Sodium 134 mmol/L (136-145)
[2021-05-24] MEDS: Furosemide 40 MG/4 ML VIAL SLOW IVP SCH (08:38)
[2021-05-24] MEDS: Potassium Chloride 20 MEQ TAB PO SCH (09:19)
[2021-05-24] MEDS: Ferrous Sulfate 325 MG TAB PO SCH (09:20)
[2021-05-24] MEDS: Amiodarone 200 MG TAB PO SCH (09:20)
[2021-05-24] MEDS: Apixaban 5 MG TAB PO SCH ×2 (09:21→21:55)
[2021-05-24] MEDS ORDERED: Furosemide 40 MG/4 ML VIAL SLOW IVP SCH (16:00)
[2021-05-24] MEDS: cefTRIAXone\\ROCEPHIN 2 GM in Sodium Chloride 0.9% 100 ML IVPB SCH (18:26)
[2021-05-24] MEDS: HumaLOG 300 UNITS/3 ML VIAL SC PRN (18:37)
[2021-05-24] MEDS: Famotidine 20 MG TAB PO SCH (21:55)
[2021-05-25 05:45] LABS: Anion Gap 17 mmol/L (10-20); BUN (Urea Nitrogen) 95 mg/dL (8.4-25.7); Calc. Creatinine Clearance 40 mL/min (70-130); Calcium 9.2 mg/dL (7.8-10.44); Carbon Dioxide 23 mmol/L (23-31); Chloride 100 mmol/L (98-107); Glucose 120 mg/dL (80-115); Potassium 3.7 mmol/L (3.5-5.1); Sodium 136 mmol/L (136-145)
[2021-05-25] MEDS: Furosemide 40 MG/4 ML VIAL SLOW IVP SCH ×2 (05:45→14:37)
[2021-05-25 06:24] LABS: Hemoglobin 9.8 g/dL (14.0-18.0); Mean Corpuscular HGB CONC 32.2 g/dL (32.0-36.0); Mean Corpuscular Hemoglobin 30.3 pg (27.0-31.0); Mean Corpuscular Volume 94.1 fL (78.0-98.0); Platelet Count 214 thou/uL (130-400); Red Blood Cell (RBC) Count 3.25 mill/uL (4.70-6.10); White Blood Cell (WBC) Count 6.9 thou/uL (4.8-10.8)
[2021-05-25 06:35] LABS: #Eosinphils 0.1 thou/uL (0.0-0.7); #Lymphocytes 0.8 thou/uL (1.20-3.40); #Monocytes 0.8 thou/uL (0.11-0.59); #Neutrophils 5.1 thou/uL (1.40-6.50); %Basophils 0.6 % (0.0-1.0); %Eosinophils 1.3 % (0.0-10.0); %Monocytes 11.7 % (0.0-10.0); %Neutrophils 74.4 % (42.0-75.0)
[2021-05-25] MEDS: Ferrous Sulfate 325 MG TAB PO SCH (08:50)
[2021-05-25] MEDS: Apixaban 5 MG TAB PO SCH ×2 (08:51→21:32)
[2021-05-25] MEDS: Amiodarone 200 MG TAB PO SCH (08:51)
[2021-05-25] MEDS: Potassium Chloride 20 MEQ TAB PO SCH (08:51)
[2021-05-25] MEDS: cefTRIAXone\\ROCEPHIN 2 GM in Sodium Chloride 0.9% 100 ML IVPB SCH (18:16)
[2021-05-25] MEDS: Famotidine 20 MG TAB PO SCH (21:31)
[2021-05-26 04:41] LABS: #Basophils 0.1 thou/uL (0.0-0.2); #Eosinphils 0.1 thou/uL (0.0-0.7); #Monocytes 0.9 thou/uL (0.11-0.59); #Neutrophils 5.7 thou/uL (1.40-6.50); %Basophils 0.8 % (0.0-1.0); %Eosinophils 0.7 % (0.0-10.0); %Lymphocytes 12.6 % (21.0-51.0); %Monocytes 11.5 % (0.0-10.0); %Neutrophils 74.3 % (42.0-75.0); Hemoglobin 11.2 g/dL (14.0-18.0); Mean Corpuscular Hemoglobin 29.7 pg (27.0-31.0); Mean Corpuscular Volume 95.9 fL (78.0-98.0); Mean Platelet Volume 8.2 fL (7.4-10.4); Platelet Count 218 thou/uL (130-400); RBC Distribution Width 18.8 % (11.5-14.5); Red Blood Cell (RBC) Count 3.77 mill/uL (4.70-6.10); White Blood Cell (WBC) Count 7.7 thou/uL (4.8-10.8)
[2021-05-26 04:44] LABS: Anion Gap 17 mmol/L (10-20); BUN (Urea Nitrogen) 94 mg/dL (8.4-25.7); Calc. Creatinine Clearance 41 mL/min (70-130); Calcium 9.1 mg/dL (7.8-10.44); Carbon Dioxide 22 mmol/L (23-31); Chloride 100 mmol/L (98-107); Glucose 127 mg/dL (80-115); Potassium 4.3 mmol/L (3.5-5.1); Sodium 135 mmol/L (136-145)
[2021-05-26] MEDS: Furosemide 40 MG/4 ML VIAL SLOW IVP SCH ×2 (05:05→14:05)
[2021-05-26] MEDS: Amiodarone 200 MG TAB PO SCH (09:03)
[2021-05-26] MEDS: Potassium Chloride 20 MEQ TAB PO SCH (09:04)
[2021-05-26] MEDS: Ferrous Sulfate 325 MG TAB PO SCH (09:04)
[2021-05-26] MEDS: Apixaban 5 MG TAB PO SCH ×2 (09:04→20:43)
[2021-05-26 10:50] VITALS: BMI 39.6
[2021-05-26] MEDS ORDERED: Docusate 100 MG CAP PO PRN (15:15)
[2021-05-26] MEDS ORDERED: Docusate 100 MG CAP PO SCH (15:30)
[2021-05-26] MEDS: cefTRIAXone\\ROCEPHIN 2 GM in Sodium Chloride 0.9% 100 ML IVPB SCH (17:56)
[2021-05-26] MEDS: Famotidine 20 MG TAB PO SCH (20:43)
[2021-05-27] MEDS: Furosemide 40 MG/4 ML VIAL SLOW IVP SCH ×2 (05:43→14:40)
[2021-05-27] MEDS: Apixaban 5 MG TAB PO SCH (08:44)
[2021-05-27] MEDS: Amiodarone 200 MG TAB PO SCH (08:44)
[2021-05-27] MEDS: Potassium Chloride 20 MEQ TAB PO SCH (08:44)
[2021-05-27] MEDS: Ferrous Sulfate 325 MG TAB PO SCH (08:44)
[2021-05-27 17:11] VITALS: BP 118/72; TEMP 97.9
== END 2021-05-27 17:11 | disposition hospice, home (50) | DRG 871 ==
LOC: ERS 00:26 → CCU 04:02 → NEURO 15:16 → CCU 19:52 → 2NO 05-13 11:24
PROVIDERS: ADMIT Student in an Organized Health Care Education/Training Program; ATTEND Hospitalist
PROC: 3E033XZ Introduction of Vasopressor into Peripheral Vein, Percutaneous Approach (ICD-10-PCS; principal; 2021-05-12)
DX: A41.51 Sepsis due to Escherichia coli [E. coli] (principal); I50.43 Acute on chronic combined systolic (congestive) and diastolic (congestive) heart failure; R65.21 Severe sepsis with septic shock; J96.21 Acute and chronic respiratory failure with hypoxia; R57.0 Cardiogenic shock; L03.116 Cellulitis of left lower limb; L03.115 Cellulitis of right lower limb; N17.9 Acute kidney failure, unspecified; E87.1 Hypo-osmolality and hyponatremia; E87.2 Acidosis; I48.20 Chronic atrial fibrillation, unspecified; Z20.822 Contact with and (suspected) exposure to COVID-19; G40.909 Epilepsy, unspecified, not intractable, without status epilepticus; E11.9 Type 2 diabetes mellitus without complications; I25.5 Ischemic cardiomyopathy; E66.9 Obesity, unspecified; I25.10 Atherosclerotic heart disease of native coronary artery without angina pectoris; D50.9 Iron deficiency anemia, unspecified; I13.10 Hypertensive heart and chronic kidney disease without heart failure, with stage 1 through stage 4 chronic kidney disease, or unspecified chronic kidney disease; E78.5 Hyperlipidemia, unspecified; E87.6 Hypokalemia; I25.2 Old myocardial infarction; Z95.1 Presence of aortocoronary bypass graft; Z79.84 Long term (current) use of oral hypoglycemic drugs; Z79.899 Other long term (current) drug therapy; Z98.890 Other specified postprocedural states; Z87.891 Personal history of nicotine dependence; Z91.19 Patient's noncompliance with other medical treatment and regimen; Z68.39 Body mass index [BMI] 39.0-39.9, adult
CPT/HCPCS: 36415; 36416; 36556; 51701; 71045; 76770; 80048; 80053; 80202; 81003; 81015; 82553; 82607; 82728; 82746; 83540; 83550; 83605; 83880; 84484; 85014; 85018; 85025; 85049; 85610; 85730; 87040; 87077; 87086; 87149; 87186; 93005; 93922; 94760; 96365; 96367; 96375; J0692; J0696; J1250; J1265; J1644; J1650; J1815; J1940; J2405; J3370; J3490; J7050; Q0162; U0002; U0003; U0005